=== PATIENT | female | born 1930 | race Caucasian/White ===

== ENCOUNTER 2017-02-11 03:59 | Inpatient (IN) | payer OTHER ==
[~2017-02-11] VITALS: Ht 160 cm; Wt 62.0 kg
[2017-02-11] MEDS ORDERED: ALBUTEROL 0.5% (NEB) 2.5 MG/0.5 ML AMP INH STA (04:07)
[2017-02-11] MEDS ORDERED: IPRATROPIUM (NEB) 0.5 MG/2.5 ML AMP INH STA (04:07)
[2017-02-11 04:28] LABS: ADD SCAN DIFF NO
[2017-02-11 04:30] LABS: ABNORMAL IP MESSAGE 1; HEMATOCRIT 12.5 % (37.0-47.0); MEAN CORPUSCULAR HEMOGLOBIN 58.4 pg (29.0-33.0); MEAN CORPUSCULAR VOLUME 110.6 fl (82.0-101.0); MEAN PLATELET VOLUME 13.2 fl (7.4-10.4); PLATELET COUNT 223 10^3/UL (140-415); RED BLOOD COUNT 1.13 10^6/ul (4.20-5.40); RED CELL DISTRIBUTION WIDTH 27.5 % (11.5-14.5); WHITE BLOOD COUNT 12.6 10^3/ul (4.8-10.8)
[2017-02-11 04:33] LABS: Arterial Base Excess 5.2 mmol/L (-3.0-3); Arterial COHb 0.1 % (0.0-3.0); Arterial Fraction of Oxyhgb 97.9 % (93.0-99.0); Arterial HCO3 28.1 mmol/L (22.0-26.0); Arterial MetHb 0.5 % (0.0-1.5); Arterial Total Hemglobin 7.2 g/dl (12.0-18.0); Blood Gas IEPAP 16/6; MODE MASK - BIPAP
[2017-02-11 04:45] LABS: HEMOGLOBIN 6.6 g/dl (12.0-16.0); MEAN CORPUSCULAR HGB CONC 52.8 g/dl (32.0-37.0)
[2017-02-11 04:46] LABS: ALANINE AMINOTRANSFERASE 49 IU/L (13-69); ALBUMIN 2.2 g/dl (3.3-4.9); ALBUMIN/GLOBULIN RATIO 0.61; ALKALINE PHOSPHATASE 205 IU/L (42-121); ANION GAP 8 (8-16); ASPARTATE AMINO TRANSFERASE 43 IU/L (15-46); BILIRUBIN,INDIRECT 0.6 mg/dl (0-1.1); BILIRUBIN,TOTAL 0.6 mg/dl (0.2-1.3); BLOOD UREA NITROGEN 40 mg/dl (7-20); CALCIUM 8.5 mg/dl (8.4-10.2); CARBON DIOXIDE 29 mmol/L (21-31); CHLORIDE 114 mmol/L (97-110); CREATININE 0.44 mg/dl (0.44-1.00); GLUCOSE 122 mg/dl (70-220); POTASSIUM 3.2 mmol/L (3.5-5.1); SODIUM 148 mmol/L (135-144); TOTAL PROTEIN 5.8 g/dl (6.1-8.1)
[2017-02-11 04:48] LABS: INR 1.41; PROTIME 17.3 Sec (12.2-14.2); PT RATIO 1.4
[2017-02-11 04:49] LABS: PARTIAL THROMBOPLASTIN TIME 25.3 Sec (25.0-35.0)
[2017-02-11 04:57] LABS: TROPONIN-I < 0.012 ng/ml (0.00-0.12)
[2017-02-11 05:02] LABS: LYMPHOCYTES # 0.8 10^3/ul (0.8-2.9); MONOCYTE # 0.1 10^3/ul (0.3-0.9); NEUTROPHIL # 11.7 10^3/ul (1.6-7.5)
[2017-02-11 05:06] LABS: ANISOCYTOSIS MODERATE
[2017-02-11 05:07] LABS: MICROCYTOSIS 1+
--- NOTE | 2017-02-11 05:16 | RADRPT ---
PROCEDURE: CHEST - 1 VIEW CLINICAL INDICATION: 86-year-old female with shortness of breath and sepsis. TECHNIQUE: A single frontal AP portable view of the chest was performed. The images were reviewed on a PACS workstation. COMPARISON: None. FINDINGS: The cardiomediastinal silhouette is mildly enlarged. The thoracic aortic arch is calcified. There is right perihilar soft tissue density which may represent an infiltrate however this is, fat and by overlying external structures. An underlying mass cannot be excluded. There is a shallow inspirat ion. There is right lower lung zone atelectasis. There is [id number] left pleural effusion w ith associate compressive atelectasis. There is no evidence for congestive heart failure. There is n o evidence for pneumothorax. The osseous structures are intact. IMPRESSION: 1. Cardiomegaly. 2. Calcified thoracic aortic arch. 3. Right perihilar soft tissue density worrisome for an infiltrate or possible underlying mass. Th is however is difficult to evaluate secondary to overlying external structure. 4. Shallow inspiration with right lower lung zone atelectasis. 6. [id number] left pleural effusion with associated compressive atelectasis of the lower lobe . .Wally Garcia MD, MD Date Time Electronically viewed and signed by .Wally Garcia MD, on 02/11/2017 05:16 .Janina/
[2017-02-11] MEDS ORDERED: FUROSEMIDE 40 MG INJ IV ONE (05:30)
[2017-02-11] MEDS ORDERED: LORAZEPAM 2 MG INJ IV ONE (05:30)
--- NOTE | 2017-02-11 05:39 | ERA ---
ER Documentation Chief Complaint Date/Time DATE: 02/11/17 TIME: 05:34 Chief Complaint shortness of breath x 3 hrs, from home HPI This is a very pleasant 86 year female shortness of breath getting progressively worse over the last 3 hours from. Denies any fevers chills nausea vomiting. Chest pain. Some shortness breath. History of CHF. ROS All systems reviewed and are negative except as per history of present illness. Allergies Allergies: Coded Allergies: Penicillins (Verified Allergy, Intermediate, 02/11/17) codeine (Verified Allergy, Intermediate, 02/11/17) iodine (Verified Allergy, Intermediate, 02/11/17) PMhx/Soc History of Surgery: Yes (adhesion removal) Anesthesia Reaction: No Hx Neurological Disorder: No Hx Respiratory Disorders: No Hx Cardiac Disorders: Yes (CHF, HTN) Hx Psychiatric Problems: No Hx Miscellaneous Medical Probl: Yes (GERD) Hx Alcohol Use: No Hx Substance Use: No Hx Tobacco Use: No Smoking Status: Never smoker Physical Exam Vitals Vital Signs Date Time Temp Pulse Resp B/P Pulse Ox O2 Delivery O2 Flow Rate FiO2 02/11/17 04:22 122 100 60 02/11/17 04:03 100.5 135 44 117/75 100 Physical Exam Const: [] Head: Atraumatic Eyes: Normal Conjunctiva ENT: Normal External Ears, Nose and Mouth. Neck: Full range of motion..~ No meningismus. Resp: Scattered rales bilaterally Cardio: Regular rate and rhythm, no murmurs Abd: Soft, non tender, non distended. Normal bowel sounds Skin: No petechiae or rashes Back: No midline or flank tenderness Ext: No cyanosis, or edema Neur: Awake and alert Psych: Normal Mood and Affect Result Diagram: 02/11/17 0410 02/11/17 0410 Results 24 hrs Laboratory Tests Test 02/11/17 04:07 02/11/17 04:10 Blood Gas Specimen Source Blood arterial Arterial Blood Date Drawn 02/11/2017 4:29:56 AM Arterial Blood pH (Temp corrected) 7.540 Arterial Blood pCO2 (Temp correct) 33.6mmhg Arterial Blood pO2 (Temp corrected) 146.8mmHG Arterial Blood HCO3 28.1mmol/L Arterial Blood Base Excess 5.2mmol/L Arterial Blood Oxygen Saturation 98.5mmHG Shreyas Test N/A Arterial Blood Gas Puncture Site Right Radial Arterial Blood Carboxyhemoglobin 0.1% Arterial Blood Methemoglobin 0.5% Blood Gas A-a O2 Differential 244.0mmHg Oxyhemoglobin Percent 97.9% Total Hemoglobin 7.2g/dl Blood Gas Temperature 37.0C Blood Gas Respiration Rate 16.0 Blood Gas Actual Respiration Rate 48 Blood Gas Modality MASK - BIPAP FiO2 60.0% Blood Gas IPAP/EPAP Ratio 16/6 Blood Gas Notified Whom MG Blood Gas Notified Time 02/11/2017 4:33:34 AM White Blood Count 12.610^3/ul Red Blood Count 1.1310^6/ul Hemoglobin 6.6g/dl Hematocrit 12.5% Mean Corpuscular Volume 110.6fl Mean Corpuscular Hemoglobin 58.4pg Mean Corpuscular Hemoglobin Concent 52.8g/dl Red Cell Distribution Width 27.5% Platelet Count 73717^3/UL Mean Platelet Volume 13.2fl Neutrophils % 93.0% Lymphocytes % 6.0% Monocytes % 1.0% Eosinophils % % Neutrophils # 11.710^3/ul Lymphocytes # 0.810^3/ul Monocytes # 0.110^3/ul Eosinophils # 10^3/ul Differential Comment MANUAL DIFF Anisocytosis MODERATE Microcytosis 1+ Prothrombin Time 17.3Sec Prothrombin Time Ratio 1.4 INR International Normalized Ratio 1.41 Activated Partial Thromboplast Time 25.3Sec Sodium Level 148mmol/L Potassium Level 3.2mmol/L Chloride Level 114mmol/L Carbon Dioxide Level 29mmol/L Anion Gap 8 Blood Urea Nitrogen 40mg/dl Creatinine 0.44mg/dl Glucose Level 122mg/dl Lactic Acid Level 1.7mmol/L Calcium Level 8.5mg/dl Total Bilirubin 0.6mg/dl Direct Bilirubin 0.00mg/dl Indirect Bilirubin 0.6mg/dl Aspartate Amino Transf (AST/SGOT) 43IU/L Alanine Aminotransferase (ALT/SGPT) 49IU/L Alkaline Phosphatase 205IU/L Troponin I < 0.012ng/ml Total Protein 5.8g/dl Albumin 2.2g/dl Globulin 3.60g/dl Albumin/Globulin Ratio 0.61 Current Medications Medications (Trade) Dose Ordered Sig/Amie Route PRN Reason Start Time Stop Time Status Last Admin Dose Admin Albuterol (Proventil 0.5% (Neb)) 10 mg ONCE STAT INH 02/11/17 04:07 02/11/17 04:10 DC 02/11/17 04:36 Ipratropium [place] (Atrovent 0.02% (Neb)) 1 mg ONCE STAT INH 02/11/17 04:07 02/11/17 04:10 DC 02/11/17 04:36 Furosemide (Lasix) 40 mg ONCE ONCE IV 02/11/17 05:30 02/11/17 05:31 DC Lorazepam (Ativan) 1 mg ONCE ONCE IV 02/11/17 05:30 02/11/17 05:31 DC Procedures/MDM EKG: Rate/Rhythm: [Normal Sinus Rhythm] QRS, ST, T-waves: [No changes consistent w/ acute ischemia] Impression: [No evidence of ischemia or arrhythmia] Chest X-ray 1V Interpreted by me: Soft Tissue: No acute abnormalities Bones: No acute abnormalities Mediastinum/Cardiac Silhouette/Lungs: Right pleural effusion. Impression: CHF Patient's heart failure symptoms is concerning for acute decompensation and will require inpatient workup and monitoring. Further w/u for ischemia, arrhythmia, PE or dissection will be deferred to the inpatient team. Patient also has anemia and has been typed and crossed for 2 units. Patient placed on BiPAP with rapid improvement of respiratory status. Accepting Care Team: Current data and ongoing care discussed. Time: 5 AM Primary Provider: Dr. Galvan Consulting: [[employer]] Outstanding Data: none Critical Care: Time: 45 minutes Treatments/Evaluations: Close monitoring and treatment of unstable vital signs, cardiorespiratory, and neurologic status, while maintaining tight balance of fluid, respiratory, and cardiac interventions. This time is separate from separate billable procedure time Departure Diagnosis: Primary Impression: Shortness of breath Additional Impression: CHF (congestive heart failure) Qualified Code: I50.9 - Congestive heart failure, unspecified congestive heart failure chronicity, unspecified congestive heart failure type Condition: Serious GABRIELLA DESOUZA Feb 11, 2017 05:39
[2017-02-11 06:17] LABS: ADD UMIC YES; UR ASCORBIC ACID 40 mg/dL (NEGATIVE); UR BACTERIA FEW /HPF (NONE SEEN); UR BILIRUBIN (Dip) NEGATIVE (NEGATIVE); UR BLOOD (Dip) NEGATIVE (NEGATIVE); UR CLARITY SLIGHTLY CLOUDY (CLEAR); UR COLOR AMBER (YELLOW); UR GLUCOSE (Dip) NEGATIVE (NEGATIVE); UR KETONES (Dip) NEGATIVE (NEGATIVE); UR LEUKOCYTE ESTERASE (Dip) 1+ Leu/ul (NEGATIVE); UR NITRITE (Dip) NEGATIVE (NEGATIVE); UR RBC 0 /HPF (0-5); UR SPECIFIC GRAVITY (Dip) 1.017 (1.003-1.030); UR TOTAL PROTEIN (Dip) NEGATIVE (NEGATIVE); UR UROBILINOGEN (Dip) 2+ mg/dL (NEGATIVE)
[2017-02-11] MEDS ORDERED: LEVOFLOXACIN 250MG/D5W (PMX) 50 ML IVPB ONE (06:30)
[2017-02-11] MEDS ORDERED: POTASSIUM CHLORIDE 250 ML IVPB ONE (06:30)
[2017-02-11] MEDS ORDERED: METO25TA4 PO (06:59)
[2017-02-11] MEDS ORDERED: SERT50TA PO (07:00)
[2017-02-11] MEDS ORDERED: MIDO5TAB19 PO (07:04)
[2017-02-11] MEDS ORDERED: PANT40TA3 PO (07:06)
[2017-02-11] MEDS ORDERED: FLUC200T36 PO (07:08)
--- NOTE | 2017-02-11 08:42 | RADRPT ---
PROCEDURE: CT Abdomen and Pelvis without contrast. CLINICAL INDICATION: Abdominal pain, history of pseudocyst TECHNIQUE: CT of the abdomen and pelvis was performed on a multi-detector scanner without IV contr ast. Coronal and sagittal images were reformatted from the axial data set. One or more of the foll owing dose reduction techniques were used: automated exposure control, adjustment of the mA and/or k V according to patient size, use of iterative reconstruction technique. CTDI = 18.2 mGy. DLP = 978. 27 mGy-cm. COMPARISON: CT, 01/19/2017 ([facility]) FINDINGS: CT abdomen: There are mild to moderate bilateral pleural effusions, with associated bibasilar atelectasis. The heart size is normal, without pericardial effusion. Large hiatal hernia is noted. Liver and gallbla dder are grossly unremarkable. Previously seen cholecystostomy tube has been removed. Common bile duct stent remains in place. No biliary dilatation is seen. Loculated peripancreatic fluid collect ions are identified - largest is located anterior to the pancreatic tail, measuring 10.3 x 6.6 cm (3 -45), previously 8.4 x 4.5 cm. A new loculated collection is seen collection inferior to the left h epatic lobe, measuring 10.1 x 5.3 cm (3-56). New gas bubbles are present within these collections. Spleen, adrenal glands and kidneys are unremarkable. There is no urolithiasis or obstructive uropat hy. Abdominal aorta is normal in caliber. Aortoiliac atherosclerotic calcifications are present. There is no retroperitoneal or deanna hepatis lymphadenopathy. There has been interval placement of a n IVC filter. CT pelvis: Areas of small bowel wall thickening and mesenteric edema are seen, suggestive of enteritis. No bow el obstruction or free intraperitoneal air is identified. Colonic diverticulosis is seen without ev idence of diverticulitis. There is no appendicitis or colitis. Elder catheter balloon is within th e urinary bladder. Uterus and adnexa are grossly unremarkable. Mild amount of pelvic free fluid is present. No pelvic mass or lymphadenopathy is seen. Diffuse anasarca is noted. The surrounding osseous structures are remarkable for scoliosis and degenerative enthesopathy of the spine No osteolytic or osteoblastic lesion is detected. IMPRESSION: 1. Loculated upper abdominal fluid collections are identified, suggestive of pseudocysts, new and/o r significantly increased in size when compared to the prior exam, as discussed above. New gas bubb les are present within these collections, concerning for infected pseudocysts. 2. There are mild to moderate bilateral pleural effusions, increased in size, with associated bibas ilar atelectasis. 3. Large hiatal hernia is again seen. 4. Previously seen cholecystostomy tube has been removed. Common bile duct stent remains in place. There has been interval placement of an IVC filter. Elder catheter balloon is within the urinary bladder. 5. Small bowel wall thickening and mesenteric edema are identified, suggestive of enteritis, increa sed from prior CT. There is no evidence of bowel obstruction or perforation. RPTAT: EE .Parish Schaefer MD, MD Date Time Electronically viewed and signed by .Parish Schaefer MD, MD on 02/11/2017 08:42 .R/
[2017-02-11] MEDS ORDERED: BISACODYL 10 MG SUPP PR PRN (10:00)
[2017-02-11] MEDS ORDERED: DOCUSATE SODIUM 100 MG CAP PO PRN (10:00)
[2017-02-11] MEDS ORDERED: NACL 0.9% 3 ML SYG IV SCH (10:00)
[2017-02-11] MEDS: FLUCONAZOLE 200 MG TAB PO SCH (10:42)
[2017-02-11] MEDS: MIDODRINE 5 MG TAB PO SCH ×2 (13:00→21:24)
[2017-02-11] MEDS: ONDANSETRON 4 MG INJ IV PRN (13:26)
[2017-02-11 14:23] VITALS: TEMP 99
[2017-02-11 15:44] LABS: AADO2 Arterial 96.3 mmHg (7.0-24.0); Allen Test ACCEPTAB; Arterial Base Excess 1.8 mmol/L (-3.0-3); Arterial COHb 0.1 % (0.0-3.0); Arterial Fraction of Oxyhgb 94.4 % (93.0-99.0); Arterial HCO3 25.1 mmol/L (22.0-26.0); Arterial MetHb 0.5 % (0.0-1.5); Arterial Total Hemglobin 8.5 g/dl (12.0-18.0); MODE NASAL CANNULA
--- NOTE | 2017-02-11 16:02 | HP ---
Date/Time of Note Date/Time of Note DATE: 02/11/17 TIME: 15:35 Assessment/Plan VTE Prophylaxis VTE Prophylaxis Intervention: SCD's, other (Status post IVC filter placement) Lines/Catheters IV Catheter Type (from Nrs): PICC Line Central line still needed: Yes (TPN) Urinary Cath still in place: Yes Reason Cath still needed: other (indicate) (Bedbound) Assessment/Plan Assessment/Plan 86 yo female with: 1. Acute on chronic anemia with hemoglobin of 6.6. No signs of acute GI bleed , complicated history of severe pancreatitis with pseudocyst and prolonged hospital stay with recent discharge, patient has been given 2 units of packed red blood cells, I will consult gastroenterology for rule out GI bleed and also to assist in the management of her pancreatitis and pseudocyst. Monitor H&H posttransfusion, will obtain further records from [facility] in order to see if the patient had also additional GI workup done there. 2. Respiratory distress, insetting of pleural effusions, atelectasis, severe anemia and poor overall clinical status. I agree with BiPAP as needed, once her blood pressure stabilized she will be started on Lasix for diuresis. If needed thoracentesis will be repeated. Of note she did have bilateral thoracentesis at [facility] on her admission Monitor respiratory status 3. Severe pancreatitis with pseudocyst, currently on TPN and clear liquids. CAT scan of the abdomen and pelvis has been compared to the one done at [facility] approximately 3 weeks ago, cholecystostomy tube has been removed however there is concern as the patient has a new fluid collection in addition of the previous pseudocyst also previous pseudocyst seems to have increased in size and there is concern for possible infection. I will start the patient on meropenem for now. I will reconsult Dr. Hannah. 4. Hypotension: Based on records patient has been actually put on midodrine 5 mg p.o. 3 times daily due to ongoing hypotension even at discharge from [facility], this will be resumed and patient will be monitored closely. Check lactic acid, antibiotics have been reordered. 5. Urinary retention, status post acute kidney injury at [facility] , renal function seems to be much better, Elder catheter in place for now. Monitor urine output and renal function. 6. Nutrition: will obtain previous orders from TPN patient is to go back on TPN in the next 24-48 hours 7. Tachycardia: Per report from [facility] patient has sinus tachycardia, EKG in the emergency department today reporting possible underlying A. fib. She will be admitted to telemetry close monitoring for now. Continue beta-blockers. Patient not a candidate for any anticoagulation for now. She will probably improve also after packed red blood cell given 8. Venous thromboembolism with episode of DVT, status post IVC filter Prophylaxis: Protonix for GI prophylaxis, SCDs and status post IVC filter for DVT prophylaxis Disposition: Patient being admitted to telemetry for now, gastroenterology will be consulted and also I will reconsult Dr. Hannah. We may need IR drainage of 1 of the pseudocyst if recommended HPI/ROS Admit Date/Time Admit Date/Time Hx of Present Illness Chief complaint on admission: Shortness of breath History of presenting illness: This is a 86-year-old female with recent admission at [facility] with severe pancreatitis, pseudocyst, protracted hospital stay including critical care stay and discharged home 4 days ago with home health, TPN and back today in the emergency department here at [facility] with shortness of breath. The patient is currently on BiPAP therefore she is unable to give most of the history, the son and DPOAE at the bedside is able to provide some of the information the rest of the history is gathered from the emergency room physician notes and also from medical records from [facility]. The patient was discharged 4 days ago again on TPN but also on midodrine for persistent hypotension, metoprolol for sinus tachycardia and home health. According to the son at the bedside they just noticed her declining over the past 2 days especially with increasing shortness of breath, in the emergency department she was found to be severely anemic with a hemoglobin of 6.6. She was also found to be tachycardic and hypotensive. She has been started on antibiotics for presumably pneumonia possibly aspiration, she will be receiving 2 units of packed red blood cells, CAT scan of the abdomen and pelvis seems to be concerning for increased size of the pseudocyst and possibly signs of infection in the pseudocyst. Previous cholecystostomy tube has been discontinued. There is no noted melena or hematemesis but gastroenterology will be consulted. Patient does have a history of third spacing and pulmonary edema pleural effusions that did require thoracentesis at [facility], she does have a mild to moderate left pleural effusion but will be treated with Lasix as tolerated, currently on BiPAP with expectation to be off BiPAP soon. Patient is being admitted to telemetry, I will consult gastroenterology regarding severe anemia rule out GI bleed and possibly Dr. Hannah will need to be reconsulted. ROS Eyes: no complaints ENT: no complaints Gastrointestinal: pain (Upper, mild) Genitourinary: no complaints, other (Elder catheter) Neurologic: no complaints PMH/Family/Social Past Medical History Severe pancreatitis with pseudocyst formation, on TPN Status post cholecystostomy tube placement and removal Status post acute kidney injury Status post multiorgan failure including respiratory failure at [facility] Aspiration pneumonia Sinus tachycardia Hypotension requiring Midodrine DVT status post IVC filter placement Chronic anemia Past Surgical History Status post cholecystostomy tube placement and removal Social History Alcohol Use: none Smoking Status: Never smoker Exam/Review of Systems Vital Signs Vitals Vital Signs Date Time Temp Pulse Resp B/P Pulse Ox O2 Delivery O2 Flow Rate FiO2 02/11/17 15:05 100 3.0 02/11/17 14:23 99.0 93 26 93/63 BIPAP 02/11/17 14:10 45 Exam Constitutional: alert, frail, other Respiratory: diminished breath sounds (Bilateral bases more pronounced on the left), other (On BiPAP) Cardiovascular: other (Tachycardic, A. fib) Gastrointestinal: soft, tender (Upper abdomen) Musculoskeletal: swelling Extremities: normal pulses, other (Bilateral lower extremity edema, no clubbing no cyanosis) Neurological: CRANK HAND II-XII intact, nl mental status, nl speech (But limited by BiPAP) Labs Result Diagram: 02/11/1740902/11/17409 Medications Medications Current Medications Fluconazole (Diflucan) 200 mg DAILY PO Last administered on 02/11/17t 10:42; Admin Dose 200 MG; Start 02/11/17 at 10:00 Metoprolol Tartrate (Lopressor) 25 mg BID PO ; Start 02/11/17 at 21:00 Midodrine (Proamatine) 5 mg TID PO ; Start 02/11/17 at 13:00 Pantoprazole (Protonix Tab) 40 mg DAILY PO ; Start 02/12/17 at 09:00 Ondansetron HCl (Zofran Inj) 4 mg Q6H PRN IV NAUSEA AND/OR VOMITING Last administered on 02/11/17t 13:26; Admin Dose 4 MG; Start 02/11/17 at 10:00 Acetaminophen (Tylenol Tab) 650 mg Q6H PRN PO PAIN LEVEL 1-3 OR FEVER; Start at 10:00 Morphine Sulfate (morphine) 2 mg Q4H PRN IV PAIN LEVEL 7-10; Start 02/11/17 at 10:00 Docusate Sodium (Colace) 100 mg Q12H PRN PO CONSTIPATION; Start 02/11/17 at 10: 00 Bisacodyl 10 mg 10 mg DAILY PRN DC CONSTIPATION; Start 02/11/17 at 10:00 Potassium Chloride/Dextrose/ Sod Cl (D5-1/2ns + KCl 40 Meq) 1,000 ml @ 75 mls/ hr [id number] IV ; Start 02/11/17 at 10:00 Procedures Procedures PROCEDURE: CT Abdomen and Pelvis without contrast. CLINICAL INDICATION: Abdominal pain, history of pseudocyst TECHNIQUE: CT of the abdomen and pelvis was performed on a multi-detector scanner without IV contrast. Coronal and sagittal images were reformatted from the axial data set. One or more of the following dose reduction techniques were used: automated exposure control, adjustment of the mA and/or kV according to patient size, use of iterative reconstruction technique. CTDI = 18.2 mGy. DLP = 978.27 mGy-cm. COMPARISON: CT, 01/19/2017 ([facility]) FINDINGS: CT abdomen: There are mild to moderate bilateral pleural effusions, with associated bibasilar atelectasis. The heart size is normal, without pericardial effusion. Large hiatal hernia is noted. Liver and gallbladder are grossly unremarkable. Previously seen cholecystostomy tube has been removed. Common bile duct stent remains in place. No biliary dilatation is seen. Loculated peripancreatic fluid collections are identified - largest is located anterior to the pancreatic tail, measuring 10.3 x 6.6 cm (3-45), previously 8.4 x 4.5 cm. A new loculated collection is seen collection inferior to the left hepatic lobe, measuring 10.1 x 5.3 cm (3-56). New gas bubbles are present within these collections. Spleen, adrenal glands and kidneys are unremarkable. There is no urolithiasis or obstructive uropathy. Abdominal aorta is normal in caliber. Aortoiliac atherosclerotic calcifications are present. There is no retroperitoneal or deanna hepatis lymphadenopathy. There has been interval placement of an IVC filter. CT pelvis: Areas of small bowel wall thickening and mesenteric edema are seen, suggestive of enteritis. No bowel obstruction or free intraperitoneal air is identified. Colonic diverticulosis is seen without evidence of diverticulitis. There is no appendicitis or colitis. Elder catheter balloon is within the urinary bladder. Uterus and adnexa are grossly unremarkable. Mild amount of pelvic free fluid is present. No pelvic mass or lymphadenopathy is seen. Diffuse anasarca is noted. The surrounding osseous structures are remarkable for scoliosis and degenerative enthesopathy of the spine No osteolytic or osteoblastic lesion is detected. IMPRESSION: 1. Loculated upper abdominal fluid collections are identified, suggestive of pseudocysts, new and/or significantly increased in size when compared to the prior exam, as discussed above. New gas bubbles are present within these collections, concerning for infected pseudocysts. 2. There are mild to moderate bilateral pleural effusions, increased in size, with associated bibasilar atelectasis. 3. Large hiatal hernia is again seen. 4. Previously seen cholecystostomy tube has been removed. Common bile duct stent remains in place. There has been interval placement of an IVC filter. Elder catheter balloon is within the urinary bladder. 5. Small bowel wall thickening and mesenteric edema are identified, suggestive of enteritis, increased from prior CT. There is no evidence of bowel obstruction or perforation. RPTAT: EE .Parish Schaefer MD, MD Date Time Electronically viewed and signed by .Parish Schaefer MD, on 02/11/2017 08: 42 BONIFACIO COWART Feb 11, 2017 15:46
[2017-02-11 16:38] LABS: CREATINE KINASE < 20 IU/L (23-200)
[2017-02-11 16:44] VITALS: PULSE 93
[2017-02-11 16:46] LABS: CK-MB 0.25 ng/ml (0.0-2.4)
[2017-02-11] MEDS: D5W-0.45 NACL + KCL 40 MEQ 1,000 ML IV SCH ×2 (16:51→23:20)
[2017-02-11 16:52] VITALS: BP 92/51; PULSE 94; RESP 22
[2017-02-11 16:56] VITALS: Ht 160 cm; Wt 62.0 kg
[2017-02-11 16:57] LABS: TROPONIN-I < 0.012 ng/ml (0.00-0.12)
[2017-02-11 17:54] LABS: CALCIUM 8.5 mg/dl (8.4-10.2); CREATININE 0.45 mg/dl (0.44-1.00)
[2017-02-11] MEDS ORDERED: MEROPENEM 1 GM/100 ML (PMX) 100 ML IVPB SCH (18:00)
[2017-02-11] MEDS: MEROPENEM 1 GM/50ML(PMX) 50 ML IVPB SCH ×2 (18:08→23:20)
[2017-02-11] MEDS ORDERED: PENDING SANTYL ORDER FOR WOUND CARE XX PRN (19:00)
[2017-02-11 19:49] VITALS: BP 97/54; RESP 17
[2017-02-11 20:15] VITALS: PULSE 99
[2017-02-11] MEDS: METOPROLOL 25 MG TAB PO SCH (21:09)
--- NOTE | 2017-02-11 21:26 | RADRPT ---
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 Physician: MALORIE COWART Quality: Technically Difficult Study Procedures: Transthoracic echocardiogram with complete 2D, M-Mode, and doppler examination. Indications: Evaluate Left Ventricular function. 2D/M Mode Doppler Measurement Value Normal Ranges Measurement Value Normal Ranges LVIDd 2D 4.0 3.5 - 5.6 cm AV Peak Isaak 1.9 m/sec LVIDs 2D 3.0 2.1 - 4.1 cm AV Peak PG 14.0 mmHg FS 2D 24.9 % AI Peak PG 42.0 mmHg LVPWd 2D 1.0 0.6 - 1.1 cm AI Peak Isaak 3.2 m/sec IVSd 2D 1.1 0.6 - 1.1 cm AI PHT 645.0 msec IVS/LVPW 2D 1.1 LVOT Peak Isaak 1.3 m/sec AoR Diam 2D 2.9 2.0 - 3.7 cm LVOT Peak PG 7.0 mmHg LA/Ao 2D 2 0 - 1 MV E Peak Isaak 0.9 m/sec EDV 2D 62.6 cm3 MV A Peak Isaak 1.4 m/sec ESV 2D 26.5 cm3 MV E/A 0.6 LA Dimen 2D 5.3 2.3 - 4.0 cm MV Decel Time 187 msec MV E/A 0.6 MR Peak PG 96.0 mmHg MR Peak Isaak 4.9 m/sec TR Peak Isaak 2.7 m/sec TR Peak PG 29.0 mmHg RVSP 37.0 mmHg Findings Left Ventricle: Normal left ventricular systolic function. Normal left ventricular cavity size. Normal left ventricular wall thickness. Ejection fraction is visually estimated at 60 %. Tissue Doppler/Mitral Doppler indices are consistent with impaired relaxation (Stage I diastolic dysfunction). Right Ventricle: Normal right ventricular size. Normal right ventricular systolic function. Left Atrium: There is severe enlargement of left atrium. Right Atrium: The right atrium is normal in size. Mitral Valve: Mild mitral leaflet calcification. Moderate mitral annular calcification. Mild mitral valve regurgitation. Aortic Valve: Aortic sclerosis without stenosis. Mild aortic valve regurgitation. Tricuspid Valve: Normal appearance of the tricuspid valve. Estimated peak PA systolic pressure 37 mmHg. There is mild tricuspid regurgitation. Pulmonic Valve: Pulmonic valve not well visualized. There is trace pulmonic regurgitation. Pericardium: Normal pericardium with no significant pericardial effusion. Aorta: Normal aortic root. IVC: Normal size and no respiratory collapse consistent with elevated right atrial pressure. Conclusions Normal left ventricular systolic function. Normal left ventricular cavity size. Normal left ventricular wall thickness. Ejection fraction is visually estimated at 60 %. Tissue Doppler/Mitral Doppler indices are consistent with impaired relaxation (Stage I diastolic dysfunction). Normal right ventricular size. Normal right ventricular systolic function. There is severe enlargement of left atrium. The right atrium is normal in size. Mild mitral leaflet calcification. Moderate mitral annular calcification. Mild mitral valve regurgitation. Aortic sclerosis without stenosis. Mild aortic valve regurgitation. Normal appearance of the tricuspid valve. Estimated peak PA systolic pressure 37 mmHg. There is mild tricuspid regurgitation. Normal pericardium with no significant pericardial effusion. Electronically Signed By: Pantera Ray 11-Feb-2017 21:26:27 -0700 Patient Name: ROBIN SUTHERLAND Study Date: 11-Feb-2017 [id number]
[2017-02-11 23:59] VITALS: BP 96/55; RESP 19
[2017-02-12] VITALS (12 sets, daily range): BP systolic 90–100; BP diastolic 47–58; PULSE 96–101; RESP 17–19
[2017-02-12 07:12] LABS: ADD SCAN DIFF NO
[2017-02-12 07:16] LABS: ABNORMAL IP MESSAGE 1; HEMATOCRIT 13.2 % (37.0-47.0); HEMOGLOBIN 7.6 g/dl (12.0-16.0); MEAN CORPUSCULAR HEMOGLOBIN 61.3 pg (29.0-33.0); MEAN CORPUSCULAR VOLUME 106.5 fl (82.0-101.0); MEAN PLATELET VOLUME 12.8 fl (7.4-10.4); PLATELET COUNT 166 10^3/UL (140-415); RED BLOOD COUNT 1.24 10^6/ul (4.20-5.40); RED CELL DISTRIBUTION WIDTH 23.9 % (11.5-14.5); WHITE BLOOD COUNT 11.3 10^3/ul (4.8-10.8)
[2017-02-12 07:22] LABS: MEAN CORPUSCULAR HGB CONC 57.6 g/dl (32.0-37.0)
[2017-02-12 07:36] LABS: BILIRUBIN,DIRECT 0.8 mg/dl (0.00-0.20); BILIRUBIN,INDIRECT 1.1 mg/dl (0-1.1); CALCIUM 8.8 mg/dl (8.4-10.2); CREATININE 0.44 mg/dl (0.44-1.00); POTASSIUM 4.3 mmol/L (3.5-5.1)
[2017-02-12 07:37] LABS: ALBUMIN 1.9 g/dl (3.3-4.9); ALBUMIN/GLOBULIN RATIO 0.55; BILIRUBIN,TOTAL 1.9 mg/dl (0.2-1.3); CHOL/HDL RATIO 7.2 RATIO; TOTAL PROTEIN 5.3 g/dl (6.1-8.1)
[2017-02-12 08:06] LABS: THYROID STIMULATING HORMONE 1.68 MIU/L (0.465-4.680)
--- NOTE | 2017-02-12 08:37 | RADRPT ---
PROCEDURE: X-ray Chest. CLINICAL INDICATION: Pulmonary edema. TECHNIQUE: Single view chest x-ray. COMPARISON: Exam dated 02/11/2017. FINDINGS: There is a well-positioned right-sided PICC tip overlying the mid SVC. There are atherosclerotic rony nges of the aorta. The cardiomediastinal silhouette remains enlarged. There is persistent bilateral perihilar opacity, diffuse interstitial disease, retrocardiac opacity, and a small right effusion. There is no pneumothorax. There are no acute osseous abnormalities. IMPRESSION: 1. Cardiomegaly with similar findings of mild to moderate hydrostatic edema with retrocardiac opaci ty and small right effusion. 2. Vascular calcifications consistent with atherosclerosis. RPTAT: GG .Pedro Tay MD, Date Time Electronically viewed and signed by .Pedro Tay MD, on 02/12/2017 08:37 .P/
--- NOTE | 2017-02-12 08:48 | CONS ---
Date/Time of Note Date/Time of Note DATE: 02/12/17 TIME: 08:38 Assessment/Plan Assessment/Plan Additional Assessment/Plan Pancreatic pseudocyst enlarged, pleural effusions, and anemia Plan: GI consultation, CT aspiration of new pseudocyst to determine if infected Patient is the poorest of surgical candidates Continue aggressive medical management Consultation Date/Type/Reason Admit Date/Time Date of Consultation: Feb 12, 2017 Reason for Consultation Pancreatitis and pseudocyst Hx of Present Illness The patient is an 86-year-old female who is known to me from laparoscopic lysis of adhesions with release of small bowel obstruction earlier this year. Approximately 2 months ago the patient was admitted to [facility] with cholecystitis and choledocholithiasis. She underwent an ERCP with successful stone extraction and placement of stent. The patient was too frail for cholecystectomy, so cholecystostomy was performed. Several weeks later cholangiogram through cholecystostomy showed a patent cystic duct and the cholecystostomy catheter was removed. In the interim the patient developed a pseudocyst. She had a very complex hospitalization with multiple medical issues , but was ultimately able to be discharged to a residential facility with TPN. She was admitted yesterday because of shortness of breath, tachycardia and hypotension. She was found to be anemic with a hemoglobin of 6.6. Imaging studies showed enlargement of pseudocyst with possible development of a second pseudocyst in the body and tail of the pancreas. The patient was admitted and surgical consultation was requested in that regard. Constitutional: requiring IVF Eyes: no complaints ENT: no complaints Respiratory: shortness of breath Cardiovascular: other (Tachycardia) Gastrointestinal: pain (Upper, mild) Genitourinary: no complaints, other (Elder catheter) Musculoskeletal: other (Generalized weakness) Neurologic: no complaints Endocrine: no complaints Lymphatic: no complaints Psychological: no complaints Social History Alcohol Use: none Smoking Status: Never smoker Exam/Review of Systems Vital Signs Vitals Vital Signs Date Time Temp Pulse Resp B/P Pulse Ox O2 Delivery O2 Flow Rate FiO2 02/12/17 07:36 98.2 102 19 90/48 99 02/12/17 01:09 4.0 02/11/17 23:34 Nasal Cannula 02/11/17 14:10 45 Intake and Output 02/11/17 02/11/17 02/12/17 15:00 23:00 07:00 Intake Total 900 ml Output Total 1100 ml 700 ml Balance -1100 ml 200 ml Exam Constitutional: oriented Head: normocephalic Eyes: PERRL Neck: supple Respiratory: diminished breath sounds Cardiovascular: other (Tachycardia) Gastrointestinal: tender (Upper abdomen) Results Result Diagram: 02/12/17 0651 02/12/17 0651 Results 24 hrs Laboratory Tests Test 02/11/17 15:01 02/11/17 16:00 02/12/17 06:25 02/12/17 06:51 Blood Gas Specimen Source Blood arterial Arterial Blood Date Drawn 02/11/2017 3:30:48 PM Arterial Blood pH (Temp corrected) 7.490 H Arterial Blood pCO2 (Temp correct) 33.7 L Arterial Blood pO2 (Temp corrected) 78.0 L Arterial Blood HCO3 25.1 Arterial Blood Base Excess 1.8 Arterial Blood Oxygen Saturation 95.0 Shreyas Test ACCEPTAB Arterial Blood Gas Puncture Site Right Radial Arterial Blood Carboxyhemoglobin 0.1 Arterial Blood Methemoglobin 0.5 Blood Gas A-a O2 Differential 96.3 H Oxyhemoglobin Percent 94.4 Total Hemoglobin 8.5 L Blood Gas Temperature 37.0 Blood Gas Actual Respiration Rate 24 Blood Gas Modality NASAL CANNULA FiO2 30.0 Blood Gas Notified Whom ELZBIETA RT Blood Gas Notified Time 02/11/2017 3:44:24 PM Sodium Level 143 145 H Potassium Level 4.0 4.3 Chloride Level 115 H 118 H Carbon Dioxide Level 29 28 Anion Gap 3 L 3 L Blood Urea Nitrogen 39 H 31 H Creatinine 0.45 0.44 Glucose Level 109 95 Calcium Level 8.5 8.8 Creatine Kinase < 20 L Creatine Kinase Index Creatinine Kinase MB (Mass) 0.25 Troponin I < 0.012 Lab Scanned Report BLOOD TRANSFUSION White Blood Count 11.3 H Red Blood Count 1.24 L Hemoglobin 7.6 L Hematocrit 13.2 L Mean Corpuscular Volume 106.5 H Mean Corpuscular Hemoglobin 61.3 H Mean Corpuscular Hemoglobin Concent 57.6 H Red Cell Distribution Width 23.9 H Platelet Count 166 # Mean Platelet Volume 12.8 H Neutrophils % Eosinophils % Neutrophils # Eosinophils # Magnesium Level 2.0 Total Bilirubin 1.9 H Direct Bilirubin 0.80 #H Indirect Bilirubin 1.1 Aspartate Amino Transf (AST/SGOT) 56 H Alanine Aminotransferase (ALT/SGPT) 50 Alkaline Phosphatase 211 H Total Protein 5.3 L Albumin 1.9 L Globulin 3.40 H Albumin/Globulin Ratio 0.55 Triglycerides Level 113 Cholesterol Level 65 L LDL Cholesterol, Calculated 33 HDL Cholesterol 9 L Cholesterol/HDL Ratio 7.2 Thyroid Stimulating Hormone (TSH) 1.680 Free Thyroxine 1.42 Medications Medications Current Medications Fluconazole (Diflucan) 200 mg DAILY PO Last administered on 02/11/17 10:42; Admin Dose 200 MG; Start 02/11/17 at 10:00 Metoprolol Tartrate (Lopressor) 25 mg BID PO Last administered on 02/11/17 21: 09; Admin Dose 25 MG; Start 02/11/17 at 21:00 Midodrine (Proamatine) 5 mg TID PO Last administered on 02/11/17 21:24; Admin Dose 5 MG; Start 02/11/17 at 13:00 Pantoprazole (Protonix Tab) 40 mg DAILY PO ; Start 02/12/17 at 09:00 Ondansetron HCl (Zofran Inj) 4 mg Q6H PRN IV NAUSEA AND/OR VOMITING Last administered on 02/11/17 13:26; Admin Dose 4 MG; Start 02/11/17 at 10:00 Acetaminophen (Tylenol Tab) 650 mg Q6H PRN PO PAIN LEVEL 1-3 OR FEVER; Start at 10:00 Morphine Sulfate (morphine) 2 mg Q4H PRN IV PAIN LEVEL 7-10; Start 02/11/17 at 10:00 Docusate Sodium (Colace) 100 mg Q12H PRN PO CONSTIPATION; Start 02/11/17 at 10: 00 Bisacodyl 10 mg 10 mg DAILY PRN [place] CONSTIPATION; Start 02/11/17 at 10:00 Potassium Chloride/Dextrose/ Sod Cl 1,000 ml @ 75 mls/hr [id number] IV Last administered on 02/11/17 23:20; Admin Dose 75 MLS/HR; Start 02/11/17 at 10:00 Meropenem/Sodium Chloride (Merrem 1 Gm/50 ml (Pmx)) 50 ml @ 200 mls/hr Q12 IVPB Last administered on 02/11/17 23:20; Admin Dose 200 MLS/HR; Start at 18:00 Miscellaneous Information (Pending [facility] Order For Wound Care) This patient prado... PRN PRN XX WOUND CARE; Start 02/11/17 at 19:00 STEPHANIE BRADY MD Feb 12, 2017 08:48
[2017-02-12] MEDS: METOPROLOL 25 MG TAB PO SCH ×2 (09:00→21:15)
[2017-02-12] MEDS: MEROPENEM 1 GM/50ML(PMX) 50 ML IVPB SCH ×2 (10:10→20:02)
[2017-02-12] MEDS: PANTOPRAZOLE (EC) 40 MG TAB PO SCH (10:10)
[2017-02-12] MEDS: MIDODRINE 5 MG TAB PO SCH ×3 (10:10→21:15)
[2017-02-12] MEDS: morphine 2 MG INJ IV PRN (10:16)
[2017-02-12] MEDS ORDERED: SOD CHLORIDE 0.9% 250 ML IV* ONE ×2 (10:25→13:17)
[2017-02-12] MEDS ORDERED: FUROSEMIDE 40 MG INJ IV SCH (10:30)
[2017-02-12] MEDS: FLUCONAZOLE 200 MG TAB PO SCH (10:36)
[2017-02-12] MEDS: ONDANSETRON 4 MG INJ IV PRN (10:48)
[2017-02-12 11:11] LABS: LYMPHOCYTES # 0.5 10^3/ul (0.8-2.9); MONOCYTE # 0.3 10^3/ul (0.3-0.9); NEUTROPHIL # 9.9 10^3/ul (1.6-7.5)
[2017-02-12] MEDS: D5W-0.45 NACL + KCL 40 MEQ 1,000 ML IV SCH (12:40)
--- NOTE | 2017-02-12 13:05 | PN ---
Date/Time of Note Date/Time of Note DATE: 02/12/17 TIME: 12:06 Assessment/Plan VTE Prophylaxis VTE Prophylaxis Intervention: SCD's Lines/Catheters IV Catheter Type (from Nrsg): PICC Line Central line still needed: Yes (for IV access and TPN ) Urinary Cath still in place: Yes Reason Cath still needed: other (indicate) (severe illness ) Assessment/Plan Assessment/Plan 86 yo female with: 1. Acute on chronic anemia with hemoglobin of 6.6 on admission, s/p 2 units pRBC but Hb up to 7.6 only. GI consult pending and appreciate recommendations of Dr Hannah Will need CT guided drainage of 2nd pseudocyst by IR Monitor H&H. 2. Respiratory distress, insetting of pleural effusions, atelectasis, severe anemia and poor overall clinical status. PRN BiPAP for now on NC and Lasix prn especially with blood transfusion. CXR slightly better today If needed thoracentesis will be repeated. Monitor respiratory status Of note she did have bilateral thoracentesis at [facility] on her admission there last month 3. Severe pancreatitis with pseudocyst, currently on TPN and clear liquids. CAT scan of the abdomen and pelvis has been compared to the one done at [facility] approximately 3 weeks ago, cholecystostomy tube has been removed however there is concern as the patient has a new fluid collection in addition of the previous pseudocyst also previous pseudocyst seems to have increased in size and there is concern for possible infection. Discussed with Dr Hannah and plan for IR drainage of 2nd pseudocyst and patient now on Meropenem for now. 4. Hypotension: Based on records patient has been actually put on midodrine 5 mg p.o. tid due to ongoing hypotension even at discharge from [facility], this will be resumed and patient will be monitored closely. Lactic acid wnl On Abx. 5. Urinary retention, status post acute kidney injury at [facility] , renal function seems to be much better, Elder catheter in place for now. Monitor urine output and renal function. 6. Nutrition: will obtain previous orders from TPN patient is to go back on TPN in the next 24 hours 7. Sinus Tachycardia: Per report from [facility] patient has sinus tachycardia, EKG in the emergency department today reporting possible underlying A. fib. She will be admitted to telemetry close monitoring for now. Continue beta-blockers. 8. Venous thromboembolism with episode of DVT, status post IVC filter Prophylaxis: Protonix for GI prophylaxis, SCDs and status post IVC filter for DVT prophylaxis Disposition: CT guided drainage of new pseudocyst by IR if possible Follow up GI recs and cultures. Subjective 24 Hr Interval Summary Free Text/Dictation Patient doing OK OFF BiPAP and stable on NC CT guided drainage of pseudocyst will be ordered with culture to be sent Exam/Review of Systems Vital Signs Vitals Vital Signs Date Time Temp Pulse Resp B/P Pulse Ox O2 Delivery O2 Flow Rate FiO2 02/12/17 11:39 98.6 98 17 91/47 99 02/12/17 01:09 4.0 02/11/17 23:34 Nasal Cannula 02/11/17 14:10 45 Intake and Output 02/11/17 02/11/17 02/12/17 15:00 23:00 07:00 Intake Total 900 ml Output Total 1100 ml 700 ml Balance -1100 ml 200 ml Exam Constitutional: alert, frail, oriented (x2) Respiratory: diminished breath sounds (bases bilatrally ), other (much improved air movement ) Cardiovascular: other (sinus tachycardia better ) Gastrointestinal: soft, tender (some epigastric TTP ) Extremities: edema (+2 to 3 LE bilaterally ), normal pulses Neurological: HAND PICKER II-XII intact, nl mental status, nl speech, other ( generalised weakness ) Results Result Diagram: 02/12/17 0651 02/12/17 0651 Results 24 hrs Laboratory Tests Test 02/11/17 15:01 02/11/17 16:00 02/12/17 06:25 02/12/17 06:51 Blood Gas Specimen Source Blood arterial Arterial Blood Date Drawn 02/11/2017 3:30:48 PM Arterial Blood pH (Temp corrected) 7.490 H Arterial Blood pCO2 (Temp correct) 33.7 L Arterial Blood pO2 (Temp corrected) 78.0 L Arterial Blood HCO3 25.1 Arterial Blood Base Excess 1.8 Arterial Blood Oxygen Saturation 95.0 Shreyas Test ACCEPTAB Arterial Blood Gas Puncture Site Right Radial Arterial Blood Carboxyhemoglobin 0.1 Arterial Blood Methemoglobin 0.5 Blood Gas A-a O2 Differential 96.3 H Oxyhemoglobin Percent 94.4 Total Hemoglobin 8.5 L Blood Gas Temperature 37.0 Blood Gas Actual Respiration Rate 24 Blood Gas Modality NASAL CANNULA FiO2 30.0 Blood Gas Notified Whom NilayRAYMON RT Blood Gas Notified Time 02/11/2017 3:44:24 PM Sodium Level 143 145 H Potassium Level 4.0 4.3 Chloride Level 115 H 118 H Carbon Dioxide Level 29 28 Anion Gap 3 L 3 L Blood Urea Nitrogen 39 H 31 H Creatinine 0.45 0.44 Glucose Level 109 95 Calcium Level 8.5 8.8 Creatine Kinase < 20 L Creatine Kinase Index Creatinine Kinase MB (Mass) 0.25 Troponin I < 0.012 Lab Scanned Report BLOOD TRANSFUSION White Blood Count 11.3 H Red Blood Count 1.24 L Hemoglobin 7.6 L Hematocrit 13.2 L Mean Corpuscular Volume 106.5 H Mean Corpuscular Hemoglobin 61.3 H Mean Corpuscular Hemoglobin Concent 57.6 H Red Cell Distribution Width 23.9 H Platelet Count 166 # Mean Platelet Volume 12.8 H Neutrophils % 88.0 H Band Neutrophils % 5.0 Lymphocytes % 4.0 L Monocytes % 3.0 Eosinophils % Neutrophils # 9.9 H Lymphocytes # 0.5 L Monocytes # 0.3 Eosinophils # Magnesium Level 2.0 Total Bilirubin 1.9 H Direct Bilirubin 0.80 #H Indirect Bilirubin 1.1 Aspartate Amino Transf (AST/SGOT) 56 H Alanine Aminotransferase (ALT/SGPT) 50 Alkaline Phosphatase 211 H Total Protein 5.3 L Albumin 1.9 L Globulin 3.40 H Albumin/Globulin Ratio 0.55 Triglycerides Level 113 Cholesterol Level 65 L LDL Cholesterol, Calculated 33 HDL Cholesterol 9 L Cholesterol/HDL Ratio 7.2 Thyroid Stimulating Hormone (TSH) 1.680 Free Thyroxine 1.42 Medications Medications Current Medications Fluconazole (Diflucan) 200 mg DAILY PO Last administered on 02/12/17 10:36; Admin Dose 200 MG; Start 02/11/17 at 10:00 Metoprolol Tartrate (Lopressor) 25 mg BID PO Last administered on 02/11/17 21: 09; Admin Dose 25 MG; Start 02/11/17 at 21:00 Midodrine (Proamatine) 5 mg TID PO Last administered on 02/12/17 10:10; Admin Dose 5 MG; Start 02/11/17 at 13:00 Pantoprazole (Protonix Tab) 40 mg DAILY PO Last administered on 7/13/17at 10:10 ; Admin Dose 40 MG; Start 02/12/17 at 09:00 Ondansetron HCl (Zofran Inj) 4 mg Q6H PRN IV NAUSEA AND/OR VOMITING Last administered on 02/11/17 13:26; Admin Dose 4 MG; Start 02/11/17 at 10:00 Acetaminophen (Tylenol Tab) 650 mg Q6H PRN PO PAIN LEVEL 1-3 OR FEVER; Start at 10:00 Morphine Sulfate (morphine) 2 mg Q4H PRN IV PAIN LEVEL 7-10 Last administered on 02/12/17 10:16; Admin Dose 2 MG; Start 02/11/17 at 10:00 Docusate Sodium (Colace) 100 mg Q12H PRN PO CONSTIPATION; Start 02/11/17 at 10: 00 Bisacodyl 10 mg 10 mg DAILY PRN [place] CONSTIPATION; Start 02/11/17 at 10:00 Potassium Chloride/Dextrose/ Sod Cl 1,000 ml @ 75 mls/hr [id number] IV Last administered on 02/11/17 23:20; Admin Dose 75 MLS/HR; Start 02/11/17 at 10:00 Meropenem/Sodium Chloride (Merrem 1 Gm/50 ml (Pmx)) 50 ml @ 200 mls/hr Q12 IVPB Last administered on 02/12/17 10:10; Admin Dose 200 MLS/HR; Start at 18:00 Miscellaneous Information (Pending [facility] Order For Wound Care) This patient prado... PRN PRN XX WOUND CARE; Start 02/11/17 at 19:00 Furosemide (Lasix) 40 mg ONCE IV ; Start 02/12/17 at 10:30; Stop 02/13/17 at 10: 29 BONIFACIO COWART Feb 12, 2017 13:01
[2017-02-12] MEDS: COLLAGENASE 30 GM TUBE TOP SCH (13:30)
[2017-02-12 14:43] LABS: INR 1.41; PARTIAL THROMBOPLASTIN TIME 28.6 Sec (25.0-35.0); PROTIME 17.3 Sec (12.2-14.2); PT RATIO 1.4
[2017-02-12] MEDS: TPN 1,000 ML IV SCH (20:02)
[2017-02-13] VITALS (12 sets, daily range): BP systolic 108–126; BP diastolic 56–65; PULSE 80–101; RESP 16–20
[2017-02-13] MEDS: ONDANSETRON 4 MG INJ IV PRN (00:36)
[2017-02-13] MEDS: morphine 2 MG INJ IV PRN ×2 (01:50→09:45)
[2017-02-13 02:51] LABS: INR 1.43; PROTIME 17.5 Sec (12.2-14.2); PT RATIO 1.4
[2017-02-13 02:52] LABS: PARTIAL THROMBOPLASTIN TIME 28.4 Sec (25.0-35.0)
[2017-02-13 07:03] LABS: ADD SCAN DIFF NO
[2017-02-13 07:15] LABS: ABNORMAL IP MESSAGE 1; BASOPHILS % 0.1 % (0.0-2.0); EOSINOPHILS # 0.1 10^3/ul (0.0-0.5); EOSINOPHILS % 0.7 % (0.0-7.0); LYMPHOCYTES # 1.2 10^3/ul (0.8-2.9); LYMPHOCYTES % 13.5 % (15.0-51.0); MEAN CORPUSCULAR HEMOGLOBIN 51.4 pg (29.0-33.0); MEAN CORPUSCULAR VOLUME 97.1 fl (82.0-101.0); MEAN PLATELET VOLUME 13.3 fl (7.4-10.4); MONOCYTE # 0.2 10^3/ul (0.3-0.9); MONOCYTES % 1.9 % (0.0-11.0); NEUTROPHIL # 7.3 10^3/ul (1.6-7.5); NEUTROPHILS % 83.3 % (39.0-77.0); PLATELET COUNT 151 10^3/UL (140-415); RED CELL DISTRIBUTION WIDTH 22.8 % (11.5-14.5); WHITE BLOOD COUNT 8.8 10^3/ul (4.8-10.8)
[2017-02-13 07:39] LABS: MEAN CORPUSCULAR HGB CONC 52.9 g/dl (32.0-37.0); RED BLOOD COUNT 1.75 10^6/ul (4.20-5.40)
[2017-02-13 07:40] LABS: MAGNESIUM 2.2 mg/dl (1.7-2.5); PHOSPHORUS 4.3 mg/dl (2.5-4.9)
[2017-02-13 07:43] LABS: POTASSIUM 4.5 mmol/L (3.5-5.1)
[2017-02-13 07:44] LABS: CREATININE 0.59 mg/dl (0.44-1.00)
--- NOTE | 2017-02-13 08:13 | PQ ---
Date/Time of Note Date/Time of Note DATE: 02/13/17 TIME: 08:09 Physician Query Documentation Clarification Dear Dr. Loja, A review of the medical record found a need for documentation clarification. The following antibiotic is documented in the medical record: Meropenem/Sodium Chloride (Merrem 1 Gm/50 ml (Pmx)) 50 ml @ 200 mls/hr Q12 IVPB + URINE CULTURE Preliminary Organism 1 ENTEROCOCCUS SPECIES COLONY COUNT >100,000 CFU/ml Please clarify a diagnosis being treated. To facilitate accurate and complete coding, please shad ( x ) the suspected diagnosis that apply: ( ) Urinary tract infection ( ) Prophylaxis ( ) Other Please provide your response by clicking edit document, making your choice ( x ), click ok/save and finally click sign. You may also document your response on your progress notes. Thank you for your time. With appreciation, Marco Gastelum RN, BSN, CCS, CCDS Clinical [employer] [facility] Information Management, CDI and Coding Services [phone] Room # 1525 - [address]~ [id number] MARCO GASTELUM Feb 13, 2017 08:13
[2017-02-13] MEDS: MEROPENEM 1 GM/50ML(PMX) 50 ML IVPB SCH ×2 (09:46→21:55)
[2017-02-13] MEDS: PANTOPRAZOLE (EC) 40 MG TAB PO SCH (09:46)
[2017-02-13] MEDS: MIDODRINE 5 MG TAB PO SCH ×3 (09:47→21:55)
[2017-02-13] MEDS: COLLAGENASE 30 GM TUBE TOP SCH (09:47)
[2017-02-13] MEDS: METOPROLOL 25 MG TAB PO SCH ×2 (09:47→21:55)
--- NOTE | 2017-02-13 10:34 | CONS ---
Date/Time of Note Date/Time of Note DATE: 02/13/17 TIME: 10:18 Assessment/Plan Assessment/Plan Additional Assessment/Plan Assessment * Anemia Acute vs chronic * Pancreatitis with Pancreatic pseudocyst * H/O tube cholecystostomy * H/O ERCP removal of stone with biliary stent * Respiratory failure improved Plan * EGD planned, patient and son DPOA refused * Continue present regimen * monitor hemoglobin and hematocrit daily and transfuse per protocol Consultation Date/Type/Reason Admit Date/Time Date of Consultation: Feb 13, 2017 Type of Consultation: Gasroenterology Reason for Consultation Anemia Referring Provider: BONIFACIO COWART Hx of Present Illness 86 year old female with past medical history cholecystitis,choledocholithiasis,s /p tube cystostomy,s/p ERCP extraction of stone with biliary stent,pancreatic pseudocysts,DVT,s/p IVC filter,on TPN was admitted because shortness of breath.Initial laboratory workup revealed a hemoglobin of 6 .received 4 units of PRBC,present hemoglobin is 9.0.Ct scan of abdomen . Loculated upper abdominal fluid collections are identified, suggestive of pseudocysts, new and/or significantly increased in size when compared to the prior exam, as discussed above. New gas bubbles are present within these collections, concerning for infected pseudocysts. There are mild to moderate bilateral pleural effusions, increased in size, with associated bibasilar atelectasis.. Large hiatal hernia is again seen. Previously seen cholecystostomy tube has been removed. Common bile duct stent remains in place. There has been interval placement of an IVC filter. Elder catheter balloon is within the urinary bladder. Small bowel wall thickening and mesenteric edema are identified, suggestive of enteritis, increased from prior CT. There is no evidence of bowel obstruction or perforation. Presently .no active bleeding noted ,afebrile,denies any tenderness,. We have discussed the planned procedure with his son and agreed with the planned procedure if her mother agrees.We have spoke with the family and agreed with the planned procedure. Constitutional: requiring IVF Eyes: no complaints ENT: no complaints Respiratory: shortness of breath Cardiovascular: other (Tachycardia) Gastrointestinal: pain (Upper, mild) Genitourinary: no complaints, other (Elder catheter) Musculoskeletal: other (Generalized weakness) Neurologic: no complaints Endocrine: no complaints Lymphatic: no complaints Psychological: no complaints Past Medical History Medical History: deep vein thrombosis, gallstones Past Surgical History Past Surgical Hx: endoscopy, other (ivc filter,s/p tube cholecystostomy) Social History Alcohol Use: none Smoking Status: Never smoker Exam/Review of Systems Vital Signs Vitals Vital Signs Date Time Temp Pulse Resp B/P Pulse Ox O2 Delivery O2 Flow Rate FiO2 02/13/17 10:10 98 3.0 02/13/17 08:00 94 02/13/17 07:34 100.1 20 110/60 02/12/17 20:15 Nasal Cannula 02/11/17 14:10 45 Intake and Output 02/12/17 02/12/17 02/13/17 15:00 23:00 07:00 Intake Total 120 ml 1050 ml Output Total 1300 ml 1300 ml Balance -1180 ml -250 ml Exam Constitutional: alert, oriented, well developed Psych: nl mood/affect, no complaints Head: atraumatic, normocephalic Eyes: EOMI, PERRL, nl conjunctiva, nl lids, nl sclera Neck: non-tender, supple Respiratory: diminished breath sounds, normal air movement Cardiovascular: nl pulses, regular rate and rhythm Gastrointestinal: nl liver, spleen, non-tender, soft Musculoskeletal: nl extremities to inspection, nl gait and stance Extremities: normal pulses Neurological: nl speech, nl strength Skin: nl turgor, No rash or lesions Lymph: nl lymph nodes Results Result Diagram: 02/13/1717 02/13/17 0610 Results 24 hrs Laboratory Tests Test 02/12/17 13:12 02/13/17 02:10 02/13/17 06:00 02/13/17 06:10 Prothrombin Time 17.3 H 17.5 H Prothrombin Time Ratio 1.4 1.4 INR International Normalized Ratio 1.41 1.43 Activated Partial Thromboplast Time 28.6 28.4 Phosphorus Level 4.3 Magnesium Level 2.2 Sodium Level 146 H Potassium Level 4.5 Chloride Level 115 H Carbon Dioxide Level 29 Anion Gap 7 L Blood Urea Nitrogen 30 H Creatinine 0.59 Glucose Level 281 #H Calcium Level 9.0 Test 02/13/17 06:17 02/13/17 08:00 White Blood Count 8.8 # Red Blood Count 1.75 #L Hemoglobin 9.0 L Hematocrit 17.0 #L Mean Corpuscular Volume 97.1 Mean Corpuscular Hemoglobin 51.4 H Mean Corpuscular Hemoglobin Concent 52.9 H Red Cell Distribution Width 22.8 H Platelet Count 151 Mean Platelet Volume 13.3 H Neutrophils % 83.3 H Lymphocytes % 13.5 L Monocytes % 1.9 Eosinophils % 0.7 Basophils % 0.1 Nucleated Red Blood Cells % 0.0 Neutrophils # 7.3 Lymphocytes # 1.2 Monocytes # 0.2 L Eosinophils # 0.1 Basophils # 0.0 Nucleated Red Blood Cells # 0.0 Lab Scanned Report BLOOD TRANSFUSION Medications Medications Current Medications Fluconazole (Diflucan) 200 mg DAILY PO Last administered on 02/12/17 10:36; Admin Dose 200 MG; Start 02/11/17 at 10:00 Metoprolol Tartrate (Lopressor) 25 mg BID PO Last administered on 02/13/17 09: 47; Admin Dose 25 MG; Start 02/11/17 at 21:00 Midodrine (Proamatine) 5 mg TID PO Last administered on 02/13/17 09:47; Admin Dose 5 MG; Start 02/11/17 at 13:00 Pantoprazole (Protonix Tab) 40 mg DAILY PO Last administered on 02/13/17 09:46 ; Admin Dose 40 MG; Start 02/12/17 at 09:00 Ondansetron HCl (Zofran Inj) 4 mg Q6H PRN IV NAUSEA AND/OR VOMITING Last administered on 02/13/17 00:36; Admin Dose 4 MG; Start 02/11/17 at 10:00 Acetaminophen (Tylenol Tab) 650 mg Q6H PRN PO PAIN LEVEL 1-3 OR FEVER; Start at 10:00 Morphine Sulfate (morphine) 2 mg Q4H PRN IV PAIN LEVEL 7-10 Last administered on 02/13/17 09:45; Admin Dose 2 MG; Start 02/11/17 at 10:00 Docusate Sodium (Colace) 100 mg Q12H PRN PO CONSTIPATION; Start 02/11/17 at 10: 00 Bisacodyl 10 mg 10 mg DAILY PRN [place] CONSTIPATION; Start 02/11/17 at 10:00 Meropenem/Sodium Chloride (Merrem 1 Gm/50 ml (Pmx)) 50 ml @ 200 mls/hr Q12 IVPB Last administered on 02/13/17 09:46; Admin Dose 200 MLS/HR; Start at 18:00 Miscellaneous Information (Pending Santyl Order For Wound Care) This patient prado... PRN PRN XX WOUND CARE; Start 02/11/17 at 19:00 Furosemide (Lasix) 40 mg ONCE IV Last administered on 02/12/17 16:27; Admin Dose 40 MG; Start 02/12/17 at 10:30; Stop 02/13/17 at 10:29 Collagenase (Santyl) 1 applic DAILY TOP Last administered on 02/13/17 09:47; Admin Dose 1 APPLIC; Start 02/12/17 at 13:30 Diphenhydramine HCl 25 mg 25 mg Q6H PRN IV ITCHING; Start 02/12/17 at 14:00 Total Parenteral Nutrition (Tpn) 1,000 ml @ 40 mls/hr Q24H IV Last administered on 02/12/17 20:02; Admin Dose 40 MLS/HR; Start 02/12/17 at 18:00 AMBER NUR MD Feb 13, 2017 10:30 AMBER NUR MD Feb 13, 2017 10:30
[2017-02-13 13:20] LABS: PARTIAL THROMBOPLASTIN TIME 29.2 Sec (25.0-35.0)
--- NOTE | 2017-02-13 13:48 | PN ---
Date/Time of Note Date/Time of Note DATE: 02/13/17 TIME: 13:15 Assessment/Plan VTE Prophylaxis VTE Prophylaxis Intervention: SCD's Lines/Catheters IV Catheter Type (from Nrsg): PICC Line Central line still needed: Yes (TPN) Urinary Cath still in place: Yes Reason Cath still needed: other (indicate) (monitor UOP ) Assessment/Plan Assessment/Plan 86 yo female with: 1. Acute on chronic anemia with hemoglobin of 6.6 on admission, s/p 4 units pRBC but Hb up to 9. Appreciate GI consult, patient to have EGD today with Dr. Hill Appreciate recommendations of Dr Hannah, needs CT guided drainage of 2nd pseudocyst by IR but with even with FFP INR still at 1.4. Mixing study and lupus anticoagulant pending. Hematology consult as needed Monitor H&H. 2. Respiratory distress, in setting of pleural effusions, atelectasis, severe anemia and poor overall clinical status. PRN BiPAP for now on NC and Lasix prn especially with blood transfusion. CXR slightly better today If needed thoracentesis will be repeated. Monitor respiratory status Of note she did have bilateral thoracentesis at on her admission there last month 3. Severe pancreatitis with pseudocyst, currently on TPN and clear liquids. CAT scan of the abdomen and pelvis has been compared to the one done at [facility] approximately 3 weeks ago, cholecystostomy tube has been removed however there is concern as the patient has a new fluid collection in addition of the previous pseudocyst also previous pseudocyst seems to have increased in size and there is concern for possible infection. Discussed with Dr Hannah and plan for IR drainage of 2nd pseudocyst Continue Meropenem. 4. Hypotension: Based on records patient has been actually put on midodrine 5 mg p.o. tid due to ongoing hypotension even at discharge from [facility], this will be resumed and patient will be monitored closely. Lactic acid wnl On Abx. Blood pressure much improved but patient still on Midodrine. 5. Urinary retention, status post acute kidney injury at [facility] , renal function seems to be much better, Elder catheter in place. Monitor urine output and renal function. 6. Nutrition: Back on TPN, pharmacy to adjust. 7. Sinus Tachycardia: Per report from [facility] patient has sinus tachycardia, EKG in the emergency department today reporting possible underlying A. fib. She will be admitted to telemetry close monitoring for now. Continue beta-blockers. Much improved 8. Venous thromboembolism with episode of DVT, status post IVC filter 9. Mild coagulopathy: INR did not respond to FFP, mixing study pending, lupus anticoagulant pending. If patient seems to have an antibody, will have hematology weigh in to clear for pseudocyst drainage. Prophylaxis: Protonix for GI prophylaxis, SCDs and status post IVC filter for DVT prophylaxis Disposition: CT guided drainage of new pseudocyst by IR if possible Follow up GI recs and cultures. Subjective 24 Hr Interval Summary Free Text/Dictation Patient remains hemodynamically stable with better blood pressure and heart rate. White blood cell count is within normal now. She is on IV antibiotics. Hemoglobin is improved post 4 units packed red blood cells. She will go for EGD today. Respiratory status is stable. She still awaiting pseudocyst drainage, however she does have mild coagulopathy not corrected with FFP therefore additional workup is needed versus additional FFP prior to pseudocyst drainage. Patient back on TPN and currently n.p.o. for EGD today otherwise she is on clear liquids thickened. Exam/Review of Systems Vital Signs Vitals Vital Signs Date Time Temp Pulse Resp B/P Pulse Ox O2 Delivery O2 Flow Rate FiO2 02/13/17 12:00 101 02/13/17 10:58 99.3 18 115/57 98 02/13/17 10:10 3.0 02/12/17 20:15 Nasal Cannula 02/11/17 14:10 45 Intake and Output 02/12/17 02/12/17 02/13/17 14:59 22:59 06:59 Intake Total 120 ml 1050 ml Output Total 1300 ml 1300 ml Balance -1180 ml -250 ml Exam Constitutional: alert, oriented (x2) Respiratory: diminished breath sounds (at bases bilaterally ) Cardiovascular: nl pulses, regular rate and rhythm Gastrointestinal: non-tender, soft Musculoskeletal: nl extremities to inspection Extremities: edema (+2 ), normal pulses, other (no clubbing or cyanosis ) Neurological: S[employer] WRAPPER II-XII intact, lethargic, other (generalised weakness ) Results Result Diagram: 02/13/17 0617 02/13/17 0610 Results 24 hrs Laboratory Tests Test 02/13/17 02:10 02/13/17 06:00 02/13/17 06:10 02/13/17 06:17 Prothrombin Time 17.5 H Prothrombin Time Ratio 1.4 INR International Normalized Ratio 1.43 Activated Partial Thromboplast Time 28.4 Phosphorus Level 4.3 Magnesium Level 2.2 Sodium Level 146 H Potassium Level 4.5 Chloride Level 115 H Carbon Dioxide Level 29 Anion Gap 7 L Blood Urea Nitrogen 30 H Creatinine 0.59 Glucose Level 281 #H Calcium Level 9.0 White Blood Count 8.8 # Red Blood Count 1.75 #L Hemoglobin 9.0 L Hematocrit 17.0 #L Mean Corpuscular Volume 97.1 Mean Corpuscular Hemoglobin 51.4 H Mean Corpuscular Hemoglobin Concent 52.9 H Red Cell Distribution Width 22.8 H Platelet Count 151 Mean Platelet Volume 13.3 H Neutrophils % 83.3 H Lymphocytes % 13.5 L Monocytes % 1.9 Eosinophils % 0.7 Basophils % 0.1 Nucleated Red Blood Cells % 0.0 Neutrophils # 7.3 Lymphocytes # 1.2 Monocytes # 0.2 L Eosinophils # 0.1 Basophils # 0.0 Nucleated Red Blood Cells # 0.0 Test 02/13/17 08:00 02/13/17 10:29 Lab Scanned Report BLOOD TRANSFUSION Activated Partial Thromboplast Time 29.2 Mix PTT Normal Plasma Immediate Pending Medications Medications Current Medications Fluconazole (Diflucan) 200 mg DAILY PO Last administered on 02/12/17 10:36; Admin Dose 200 MG; Start 02/11/17 at 10:00 Metoprolol Tartrate (Lopressor) 25 mg BID PO Last administered on 02/13/17 09: 47; Admin Dose 25 MG; Start 02/11/17 at 21:00 Midodrine (Proamatine) 5 mg TID PO Last administered on 02/13/17 09:47; Admin Dose 5 MG; Start 02/11/17 at 13:00 Pantoprazole (Protonix Tab) 40 mg DAILY PO Last administered on 02/13/17 09:46 ; Admin Dose 40 MG; Start 02/12/17 at 09:00 Ondansetron HCl (Zofran Inj) 4 mg Q6H PRN IV NAUSEA AND/OR VOMITING Last administered on 02/13/17 00:36; Admin Dose 4 MG; Start 02/11/17 at 10:00 Acetaminophen (Tylenol Tab) 650 mg Q6H PRN PO PAIN LEVEL 1-3 OR FEVER; Start at 10:00 Morphine Sulfate (morphine) 2 mg Q4H PRN IV PAIN LEVEL 7-10 Last administered on 02/13/17 09:45; Admin Dose 2 MG; Start 02/11/17 at 10:00 Docusate Sodium (Colace) 100 mg Q12H PRN PO CONSTIPATION; Start 02/11/17 at 10: 00 Bisacodyl 10 mg 10 mg DAILY PRN [place] CONSTIPATION; Start 02/11/17 at 10:00 Meropenem/Sodium Chloride (Merrem 1 Gm/50 ml (Pmx)) 50 ml @ 200 mls/hr Q12 IVPB Last administered on 02/13/17 09:46; Admin Dose 200 MLS/HR; Start at 18:00 Miscellaneous Information (Pending Santyl Order For Wound Care) This patient prado... PRN PRN XX WOUND CARE; Start 02/11/17 at 19:00 Collagenase (Santyl) 1 applic DAILY TOP Last administered on 02/13/17 09:47; Admin Dose 1 APPLIC; Start 02/12/17 at 13:30 Diphenhydramine HCl 25 mg 25 mg Q6H PRN IV ITCHING; Start 02/12/17 at 14:00 Total Parenteral Nutrition (Tpn) 1,000 ml @ 40 mls/hr Q24H IV Last administered on 02/12/17 20:02; Admin Dose 40 MLS/HR; Start 02/12/17 at 18:00 BONIFACIO COWART Feb 13, 2017 13:25
[2017-02-13] MEDS: FLUCONAZOLE 200 MG TAB PO SCH (14:31)
[2017-02-13] MEDS: TPN 1,000 ML IV SCH (23:55)
[2017-02-14] VITALS (12 sets, daily range): BP systolic 110–117; BP diastolic 55–80; PULSE 80–100; RESP 16–20
[2017-02-14 06:31] LABS: ADD SCAN DIFF NO
[2017-02-14 06:49] LABS: INR 1.4; PROTIME 17.2 Sec (12.2-14.2); PT RATIO 1.3
[2017-02-14 06:50] LABS: PARTIAL THROMBOPLASTIN TIME 31.7 Sec (25.0-35.0)
[2017-02-14 07:13] LABS: ABNORMAL IP MESSAGE 1; BASOPHILS % 0.2 % (0.0-2.0); EOSINOPHILS # 0.1 10^3/ul (0.0-0.5); EOSINOPHILS % 0.6 % (0.0-7.0); HEMATOCRIT 29.3 % (37.0-47.0); HEMOGLOBIN 9.1 g/dl (12.0-16.0); LYMPHOCYTES # 1.5 10^3/ul (0.8-2.9); LYMPHOCYTES % 17.7 % (15.0-51.0); MEAN CORPUSCULAR HEMOGLOBIN 28.8 pg (29.0-33.0); MEAN CORPUSCULAR HGB CONC 31.1 g/dl (32.0-37.0); MEAN PLATELET VOLUME 13.3 fl (7.4-10.4); MONOCYTE # 0.2 10^3/ul (0.3-0.9); MONOCYTES % 2.4 % (0.0-11.0); NEUTROPHIL # 6.5 10^3/ul (1.6-7.5); NEUTROPHILS % 78.7 % (39.0-77.0); PLATELET COUNT 148 10^3/UL (140-415); RED BLOOD COUNT 3.16 10^6/ul (4.20-5.40); RED CELL DISTRIBUTION WIDTH 19.5 % (11.5-14.5); WHITE BLOOD COUNT 8.3 10^3/ul (4.8-10.8)
[2017-02-14 07:18] LABS: MEAN CORPUSCULAR VOLUME 92.7 fl (82.0-101.0)
[2017-02-14 07:21] LABS: ALBUMIN 1.9 g/dl (3.3-4.9); ALBUMIN/GLOBULIN RATIO 0.55; BILIRUBIN,DIRECT 0.3 mg/dl (0.00-0.20); BILIRUBIN,TOTAL 1.3 mg/dl (0.2-1.3); CALCIUM 8.9 mg/dl (8.4-10.2); CREATININE 0.46 mg/dl (0.44-1.00); POTASSIUM 3.7 mmol/L (3.5-5.1); TOTAL PROTEIN 5.3 g/dl (6.1-8.1)
[2017-02-14 07:23] LABS: MAGNESIUM 2.1 mg/dl (1.7-2.5); PHOSPHORUS 3.1 mg/dl (2.5-4.9)
--- NOTE | 2017-02-14 07:59 | PN ---
Date/Time of Note Date/Time of Note DATE: 02/14/17 TIME: 07:54 Assessment/Plan VTE Prophylaxis VTE Prophylaxis Intervention: other (Caval umbrella) Lines/Catheters [facility] Type (from [facility] PICC Line Central line still needed: Yes Urinary Cath still in place: Yes Reason Cath still needed: other (indicate) (Monitoring) Assessment/Plan Chief Complaint/Hosp Course The patient is an 86-year-old female who is known to me from laparoscopic lysis of adhesions with release of small bowel obstruction earlier this year. Approximately 2 months ago the patient was admitted to [facility] with cholecystitis and choledocholithiasis. She underwent an ERCP with successful stone extraction and placement of stent. The patient was too frail for cholecystectomy, so cholecystostomy was performed. Several weeks later cholangiogram through cholecystostomy showed a patent cystic duct and the cholecystostomy catheter was removed. In the interim the patient developed a pseudocyst. She had a very complex hospitalization with multiple medical issues , but was ultimately able to be discharged to a snf facility with TPN. She was admitted yesterday because of shortness of breath, tachycardia and hypotension. She was found to be anemic with a hemoglobin of 6.6. Imaging studies showed enlargement of pseudocyst with possible development of a second pseudocyst in the body and tail of the pancreas. The patient was admitted and surgical consultation was requested in that regard. Problems: Assessment/Plan Patient is now awake and alert, and markedly symptomatically improved. She complains of minimal abdominal pain Leukocytosis has resolved Plan: Continue medical management. There are no new surgical recommendations Subjective 24 Hr Interval Summary Free Text/Dictation Hospital events noted. Exam/Review of Systems Vital Signs Vitals Vital Signs Date Time Temp Pulse Resp B/P Pulse Ox O2 Delivery O2 Flow Rate FiO2 02/14/17 07:25 98.0 88 18 110/63 95 02/14/17 04:27 3.0 02/13/17 20:20 Nasal Cannula 02/11/17 14:10 45 Intake and Output 02/13/17 02/13/17 02/14/17 14:59 22:59 06:59 Intake Total 50 ml 430 ml 250 ml Output Total 600 ml Balance 50 ml -170 ml 250 ml Results Result Diagram: 02/14/17 0557 02/14/17 0557 Results 24 hrs Laboratory Tests Test 02/13/17 08:00 02/13/17 10:29 02/14/17 05:57 Lab Scanned Report BLOOD TRANSFUSION Activated Partial Thromboplast Time 29.2 31.7 Mix PTT Normal Plasma Immediate White Blood Count 8.3 Red Blood Count 3.16 #L Hemoglobin 9.1 L Hematocrit 29.3 #L Mean Corpuscular Volume 92.7 Mean Corpuscular Hemoglobin 28.8 #L Mean Corpuscular Hemoglobin Concent 31.1 #L Red Cell Distribution Width 19.5 H Platelet Count 148 Mean Platelet Volume 13.3 H Neutrophils % 78.7 H Lymphocytes % 17.7 Monocytes % 2.4 Eosinophils % 0.6 Basophils % 0.2 Nucleated Red Blood Cells % 0.0 Neutrophils # 6.5 Lymphocytes # 1.5 Monocytes # 0.2 L Eosinophils # 0.1 Basophils # 0.0 Nucleated Red Blood Cells # 0.0 Prothrombin Time 17.2 H Prothrombin Time Ratio 1.3 INR International Normalized Ratio 1.40 Sodium Level 157 H Potassium Level 3.7 Chloride Level 118 H Carbon Dioxide Level 31 Anion Gap 12 Blood Urea Nitrogen 30 H Creatinine 0.46 Glucose Level 117 # Calcium Level 8.9 Phosphorus Level 3.1 Magnesium Level 2.1 Total Bilirubin 1.3 Direct Bilirubin 0.30 #H Indirect Bilirubin 1.0 Aspartate Amino Transf (AST/SGOT) 41 Alanine Aminotransferase (ALT/SGPT) 39 Alkaline Phosphatase 185 H Total Protein 5.3 L Albumin 1.9 L Globulin 3.40 H Albumin/Globulin Ratio 0.55 Medications Medications Current Medications Fluconazole (Diflucan) 200 mg DAILY PO Last administered on 02/13/17 14:31; Admin Dose 200 MG; Start 02/11/17 at 10:00 Metoprolol Tartrate (Lopressor) 25 mg BID PO Last administered on 02/13/17 21: 55; Admin Dose 25 MG; Start 02/11/17 at 21:00 Midodrine (Proamatine) 5 mg TID PO Last administered on 02/13/17 21:55; Admin Dose 5 MG; Start 02/11/17 at 13:00 Pantoprazole (Protonix Tab) 40 mg DAILY PO Last administered on 02/13/17 09:46 ; Admin Dose 40 MG; Start 02/12/17 at 09:00 Ondansetron HCl (Zofran Inj) 4 mg Q6H PRN IV NAUSEA AND/OR VOMITING Last administered on 02/13/17 00:36; Admin Dose 4 MG; Start 02/11/17 at 10:00 Acetaminophen (Tylenol Tab) 650 mg Q6H PRN PO PAIN LEVEL 1-3 OR FEVER; Start at 10:00 Morphine Sulfate (morphine) 2 mg Q4H PRN IV PAIN LEVEL 7-10 Last administered on 02/13/17 09:45; Admin Dose 2 MG; Start 02/11/17 at 10:00 Docusate Sodium (Colace) 100 mg Q12H PRN PO CONSTIPATION; Start 02/11/17 at 10: 00 Bisacodyl 10 mg 10 mg DAILY PRN [place] CONSTIPATION; Start 02/11/17 at 10:00 Meropenem/Sodium Chloride (Merrem 1 Gm/50 ml (Pmx)) 50 ml @ 200 mls/hr Q12 IVPB Last administered on 02/13/17 21:55; Admin Dose 200 MLS/HR; Start at 18:00 Miscellaneous Information (Pending Santyl Order For Wound Care) This patient prado... PRN PRN XX WOUND CARE; Start 02/11/17 at 19:00 Collagenase (Santyl) 1 applic DAILY TOP Last administered on 02/13/17 09:47; Admin Dose 1 APPLIC; Start 02/12/17 at 13:30 Diphenhydramine HCl 25 mg 25 mg Q6H PRN IV ITCHING; Start 02/12/17 at 14:00 Total Parenteral Nutrition (Tpn) 1,000 ml @ 40 mls/hr Q24H IV Last administered on 02/13/17 23:55; Admin Dose 40 MLS/HR; Start 02/12/17 at 18:00 STEPHANIE BRADY MD Feb 14, 2017 07:59
[2017-02-14] MEDS: COLLAGENASE 30 GM TUBE TOP SCH (08:37)
[2017-02-14] MEDS: MEROPENEM 1 GM/50ML(PMX) 50 ML IVPB SCH ×2 (09:01→21:11)
[2017-02-14] MEDS: METOPROLOL 25 MG TAB PO SCH ×2 (09:01→21:12)
[2017-02-14] MEDS: FLUCONAZOLE 200 MG TAB PO SCH (09:01)
[2017-02-14] MEDS: MIDODRINE 5 MG TAB PO SCH ×3 (09:01→21:12)
[2017-02-14] MEDS: PANTOPRAZOLE (EC) 40 MG TAB PO SCH (09:02)
--- NOTE | 2017-02-14 11:17 | PN ---
Date/Time of Note Date/Time of Note DATE: 02/14/17 TIME: 11:11 Assessment/Plan VTE Prophylaxis VTE Prophylaxis Intervention: SCD's Lines/Catheters IV Cathe[facility] Type ([facility] PICC Line Central line still needed: Yes Urinary Cath still in place: Yes Reason Cath still needed: urinary retention Assessment/Plan Chief Complaint/Hosp Course 86 year old female with past medical history cholecystitis,choledocholithiasis,s /p tube cystostomy,s/p ERCP extraction of stone with biliary stent,pancreatic pseudocysts,DVT,s/p IVC filter,on TPN was admitted because shortness of breath.Initial laboratory workup revealed a hemoglobin of 6 .received 4 units of PRBC,present hemoglobin is 9.0.Ct scan of abdomen . Loculated upper abdominal fluid collections are identified, suggestive of pseudocysts, new and/or significantly increased in size when compared to the prior exam, as discussed above. New gas bubbles are present within these collections, concerning for infected pseudocysts. There are mild to moderate bilateral pleural effusions, increased in size, with associated bibasilar atelectasis.. Large hiatal hernia is again seen. Previously seen cholecystostomy tube has been removed. Common bile duct stent remains in place. There has been interval placement of an IVC filter. Elder catheter balloon is within the urinary bladder. Small bowel wall thickening and mesenteric edema are identified, suggestive of enteritis, increased from prior CT. There is no evidence of bowel obstruction or perforation. Presently .no active bleeding noted ,afebrile,denies any tenderness,. We have discussed the planned procedure with his son and agreed with the planned procedure if her mother agrees.We have spoke with the family and agreed with the planned procedure. Problems: Assessment/Plan Assessment * Anemia * Refused EGD * Pancreatitis with Pancreatic pseudocyst * H/O tube cholecystostomy * H/O ERCP removal of stone with biliary stent * Respiratory failure improved Plan * Continue present regimen * Surgical management of pseudocyst * monitor hemoglobin and hematocrit daily and transfuse per protocol Subjective 24 Hr Interval Summary Free Text/Dictation Course reviewed with nursing staff c/o abdominal distention and moderate pain H/H stable Exam/Review of Systems Vital Signs Vitals Vital Signs Date Time Temp Pulse Resp B/P Pulse Ox O2 Delivery O2 Flow Rate FiO2 02/14/17 10:50 98.4 94 17 110/60 98 02/14/17 04:27 3.0 02/13/17 20:20 Nasal Cannula 02/11/17 14:10 45 Intake and Output 02/13/17 02/13/17 02/14/17 15:00 23:00 07:00 Intake Total 50 ml 630 ml 50 ml Output Total 600 ml Balance 50 ml 30 ml 50 ml Exam Constitutional: alert, oriented, well developed Head: atraumatic, normocephalic Eyes: EOMI, PERRL, nl conjunctiva, nl lids, nl sclera ENMT: nl external ears & nose, nl lips & teeth, nl nasal mucosa & septum Neck: non-tender, supple Respiratory: clear to auscultation, normal air movement Cardiovascular: nl pulses, regular rate and rhythm Gastrointestinal: bowel sounds, distended, firm, tender (diffusely tender), No rebound or guarding Musculoskeletal: nl extremities to inspection Extremities: normal pulses Skin: nl turgor, No rash or lesions Lymph: nl lymph nodes Results Result Diagram: 02/14/17 0557 02/14/17 0557 Results 24 hrs Laboratory Tests Test 02/14/17 05:57 White Blood Count 8.3 Red Blood Count 3.16 #L Hemoglobin 9.1 L Hematocrit 29.3 #L Mean Corpuscular Volume 92.7 Mean Corpuscular Hemoglobin 28.8 #L Mean Corpuscular Hemoglobin Concent 31.1 #L Red Cell Distribution Width 19.5 H Platelet Count 148 Mean Platelet Volume 13.3 H Neutrophils % 78.7 H Lymphocytes % 17.7 Monocytes % 2.4 Eosinophils % 0.6 Basophils % 0.2 Nucleated Red Blood Cells % 0.0 Neutrophils # 6.5 Lymphocytes # 1.5 Monocytes # 0.2 L Eosinophils # 0.1 Basophils # 0.0 Nucleated Red Blood Cells # 0.0 Prothrombin Time 17.2 H Prothrombin Time Ratio 1.3 INR International Normalized Ratio 1.40 Activated Partial Thromboplast Time 31.7 Sodium Level 157 H Potassium Level 3.7 Chloride Level 118 H Carbon Dioxide Level 31 Anion Gap 12 Blood Urea Nitrogen 30 H Creatinine 0.46 Glucose Level 117 # Calcium Level 8.9 Phosphorus Level 3.1 Magnesium Level 2.1 Total Bilirubin 1.3 Direct Bilirubin 0.30 #H Indirect Bilirubin 1.0 Aspartate Amino Transf (AST/SGOT) 41 Alanine Aminotransferase (ALT/SGPT) 39 Alkaline Phosphatase 185 H Total Protein 5.3 L Albumin 1.9 L Globulin 3.40 H Albumin/Globulin Ratio 0.55 Medications Medications Current Medications Fluconazole (Diflucan) 200 mg DAILY PO Last administered on 02/14/17 09:01; Admin Dose 200 MG; Start 02/11/17 at 10:00 Metoprolol Tartrate (Lopressor) 25 mg BID PO Last administered on 02/14/17 09: 01; Admin Dose 25 MG; Start 02/11/17 at 21:00 Midodrine (Proamatine) 5 mg TID PO Last administered on 02/14/17 09:01; Admin Dose 5 MG; Start 02/11/17 at 13:00 Pantoprazole (Protonix Tab) 40 mg DAILY PO Last administered on 02/14/17 09:02 ; Admin Dose 40 MG; Start 02/12/17 at 09:00 Ondansetron HCl (Zofran Inj) 4 mg Q6H PRN IV NAUSEA AND/OR VOMITING Last administered on 02/13/17 00:36; Admin Dose 4 MG; Start 02/11/17 at 10:00 Acetaminophen (Tylenol Tab) 650 mg Q6H PRN PO PAIN LEVEL 1-3 OR FEVER; Start at 10:00 Morphine Sulfate (morphine) 2 mg Q4H PRN IV PAIN LEVEL 7-10 Last administered on 02/13/17 09:45; Admin Dose 2 MG; Start 02/11/17 at 10:00 Docusate Sodium (Colace) 100 mg Q12H PRN PO CONSTIPATION; Start 02/11/17 at 10: 00 Bisacodyl 10 mg 10 mg DAILY PRN [place] CONSTIPATION; Start 02/11/17 at 10:00 Meropenem/Sodium Chloride (Merrem 1 Gm/50 ml (Pmx)) 50 ml @ 200 mls/hr Q12 IVPB Last administered on 02/14/17 09:01; Admin Dose 200 MLS/HR; Start at 18:00 Miscellaneous Information (Pending Santyl Order For Wound Care) This patient prado... PRN PRN XX WOUND CARE; Start 02/11/17 at 19:00 Collagenase (Santyl) 1 applic DAILY TOP Last administered on 02/14/17 08:37; Admin Dose 1 APPLIC; Start 02/12/17 at 13:30 Diphenhydramine HCl 25 mg 25 mg Q6H PRN IV ITCHING; Start 02/12/17 at 14:00 Total Parenteral Nutrition (Tpn) 1,000 ml @ 40 mls/hr Q24H IV Last administered on 02/13/17t 23:55; Admin Dose 40 MLS/HR; Start 02/12/17 at 18:00 AMBER NUR MD Feb 14, 2017 11:16
--- NOTE | 2017-02-14 14:05 | PN ---
Date/Time of Note Date/Time of Note DATE: 02/14/17 TIME: 13:53 Assessment/Plan VTE Prophylaxis VTE Prophylaxis Intervention: SCD's Lines/Catheters IV Catheter Type (from Nrsg): PICC Line Central line still needed: Yes (For IV access and TPN) Urinary Cath still in place: Yes Reason Cath still needed: other (indicate) (Monitor urine output) Assessment/Plan Assessment/Plan 86 yo female with: 1. Acute on chronic anemia with hemoglobin of 6.6 on admission, s/p 4 units pRBC but Hb up to 9.1 and has been stable for the past 2 days. Appreciate GI consult, patient now has declined EGD. Appreciate recommendations of Dr Hannah, needs CT guided drainage of 2nd pseudocyst by IR but with even with FFP INR still at 1.4. Mixing study and lupus anticoagulant pending. Will give vitamin K, repeat INR and hematology consult as needed Monitor H&H. 2. Respiratory distress, in setting of pleural effusions, atelectasis, severe anemia and poor overall clinical status. PRN BiPAP for now on NC and Lasix prn especially with blood transfusion. CXR slightly better. If needed thoracentesis will be repeated. Monitor respiratory status Of note she did have bilateral thoracentesis at [facility] on her admission there last month 3. Severe pancreatitis with pseudocyst, currently on TPN and clear liquids. CAT scan of the abdomen and pelvis has been compared to the one done at [facility] approximately 3 weeks ago, cholecystostomy tube has been removed however there is concern as the patient has a new fluid collection in addition of the previous pseudocyst also previous pseudocyst seems to have increased in size and there is concern for possible infection. Discussed with Dr Hannah and plan for IR drainage of 2nd pseudocyst when coagulation factor appropriate Continue Meropenem. 4. Hypotension: Based on records patient has been actually put on midodrine 5 mg p.o. tid due to ongoing hypotension even at discharge from [facility], this will be resumed and patient will be monitored closely. Lactic acid wnl On Abx. Blood pressure stable now but still on Midodrine. 5. Urinary retention, status post acute kidney injury at [facility] , renal function seems to be much better, Elder catheter in place. Monitor urine output and renal function. 6. Nutrition: Back on TPN, pharmacy to adjust today based on electrolytes this morning. 7. Sinus Tachycardia: Per report from [facility] patient has sinus tachycardia, EKG in the emergency department today reporting possible underlying A. fib. She will be admitted to telemetry close monitoring for now. Continue beta-blockers. Resolved with blood pressure much more stable. 8. Venous thromboembolism with episode of DVT, status post IVC filter 9. Mild coagulopathy: INR did not respond to FFP, mixing study pending, lupus anticoagulant pending. If patient seems to have an antibody, will have hematology weigh in to clear for pseudocyst drainage. Vitamin K to be given today. Prophylaxis: Protonix for GI prophylaxis, SCDs and status post IVC filter for DVT prophylaxis Disposition: CT guided drainage of new pseudocyst by IR if possible Appreciate GI recs and cultures pending drainage. Subjective 24 Hr Interval Summary Free Text/Dictation Patient feels better today, she is much more awake and alert. She is having minimal epigastric pain. Unfortunately her INR is still at 1.4 therefore IR has declined to do the pseudocyst drainage. We will give vitamin K today, repeat INR in a.m. Patient has declined to get the EGD, hemoglobin is stable, will continue to monitor. TPN to be adjusted today Patient also complaining of multiple loose stools Exam/Review of Systems Vital Signs Vitals Vital Signs Date Time Temp Pulse Resp B/P Pulse Ox O2 Delivery O2 Flow Rate FiO2 02/14/17 12:33 86 02/14/17 10:50 98.4 17 110/60 98 02/14/17 08:00 Nasal Cannula 4.0 02/11/17 14:10 45 Intake and Output 02/13/17 02/13/17 02/14/17 15:00 23:00 07:00 Intake Total 50 ml 630 ml 50 ml Output Total 600 ml Balance 50 ml 30 ml 50 ml Exam Constitutional: alert, frail, oriented Respiratory: diminished breath sounds (At the bases), normal air movement Cardiovascular: nl pulses, regular rate and rhythm Gastrointestinal: non-tender, soft Musculoskeletal: swelling (Lower extremity) Extremities: edema (Lower extremities bilaterally +1-2), normal pulses 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, lethargic, nl mental status, nl speech Results Result Diagram: 02/14/1757 02/14/17 0557 Results 24 hrs Laboratory Tests Test 02/14/17 05:57 White Blood Count 8.3 Red Blood Count 3.16 #L Hemoglobin 9.1 L Hematocrit 29.3 #L Mean Corpuscular Volume 92.7 Mean Corpuscular Hemoglobin 28.8 #L Mean Corpuscular Hemoglobin Concent 31.1 #L Red Cell Distribution Width 19.5 H Platelet Count 148 Mean Platelet Volume 13.3 H Neutrophils % 78.7 H Lymphocytes % 17.7 Monocytes % 2.4 Eosinophils % 0.6 Basophils % 0.2 Nucleated Red Blood Cells % 0.0 Neutrophils # 6.5 Lymphocytes # 1.5 Monocytes # 0.2 L Eosinophils # 0.1 Basophils # 0.0 Nucleated Red Blood Cells # 0.0 Prothrombin Time 17.2 H Prothrombin Time Ratio 1.3 INR International Normalized Ratio 1.40 Activated Partial Thromboplast Time 31.7 Sodium Level 157 H Potassium Level 3.7 Chloride Level 118 H Carbon Dioxide Level 31 Anion Gap 12 Blood Urea Nitrogen 30 H Creatinine 0.46 Glucose Level 117 # Calcium Level 8.9 Phosphorus Level 3.1 Magnesium Level 2.1 Total Bilirubin 1.3 Direct Bilirubin 0.30 #H Indirect Bilirubin 1.0 Aspartate Amino Transf (AST/SGOT) 41 Alanine Aminotransferase (ALT/SGPT) 39 Alkaline Phosphatase 185 H Total Protein 5.3 L Albumin 1.9 L Globulin 3.40 H Albumin/Globulin Ratio 0.55 Medications Medications Current Medications Fluconazole (Diflucan) 200 mg DAILY PO Last administered on 02/14/17 09:01; Admin Dose 200 MG; Start 02/11/17 at 10:00 Metoprolol Tartrate (Lopressor) 25 mg BID PO Last administered on 02/14/17 09: 01; Admin Dose 25 MG; Start 02/11/17 at 21:00 Midodrine (Proamatine) 5 mg TID PO Last administered on 02/14/17 13:13; Admin Dose 5 MG; Start 02/11/17 at 13:00 Pantoprazole (Protonix Tab) 40 mg DAILY PO Last administered on 02/14/17 09:02 ; Admin Dose 40 MG; Start 02/12/17 at 09:00 Ondansetron HCl (Zofran Inj) 4 mg Q6H PRN IV NAUSEA AND/OR VOMITING Last administered on 02/13/17 00:36; Admin Dose 4 MG; Start 02/11/17 at 10:00 Acetaminophen (Tylenol Tab) 650 mg Q6H PRN PO PAIN LEVEL 1-3 OR FEVER; Start at 10:00 Morphine Sulfate (morphine) 2 mg Q4H PRN IV PAIN LEVEL 7-10 Last administered on 02/13/17 09:45; Admin Dose 2 MG; Start 02/11/17 at 10:00 Docusate Sodium (Colace) 100 mg Q12H PRN PO CONSTIPATION; Start 02/11/17 at 10: 00 Bisacodyl 10 mg 10 mg DAILY PRN [place] CONSTIPATION; Start 02/11/17 at 10:00 Meropenem/Sodium Chloride (Merrem 1 Gm/50 ml (Pmx)) 50 ml @ 200 mls/hr Q12 IVPB Last administered on 02/14/17 09:01; Admin Dose 200 MLS/HR; Start at 18:00 Miscellaneous Information (Pending Santyl Order For Wound Care) This patient prado... PRN PRN XX WOUND CARE; Start 02/11/17 at 19:00 Collagenase (Santyl) 1 applic DAILY TOP Last administered on 02/14/17 08:37; Admin Dose 1 APPLIC; Start 02/12/17 at 13:30 Diphenhydramine HCl 25 mg 25 mg Q6H PRN IV ITCHING; Start 02/12/17 at 14:00 Total Parenteral Nutrition (Tpn) 1,000 ml @ 40 mls/hr Q24H IV Last administered on 02/13/17 23:55; Admin Dose 40 MLS/HR; Start 02/12/17 at 18:00 BONIFACIO COWART Feb 14, 2017 14:05
[2017-02-14] MEDS ORDERED: PHYTONADIONE 10 MG in DEXTROSE 5% 50 ML IVPB ONE (15:00)
[2017-02-14] MEDS: TPN 1,000 ML IV SCH (15:40)
[2017-02-15] VITALS (13 sets, daily range): BP systolic 121–148; BP diastolic 60–81; PULSE 85–113; RESP 16–20
[2017-02-15 06:24] LABS: ADD SCAN DIFF NO
[2017-02-15 06:53] LABS: CREATININE 0.42 mg/dl (0.44-1.00); POTASSIUM 3.8 mmol/L (3.5-5.1)
[2017-02-15 06:57] LABS: MAGNESIUM 2.1 mg/dl (1.7-2.5); PHOSPHORUS 2.8 mg/dl (2.5-4.9)
[2017-02-15 07:14] LABS: ABNORMAL IP MESSAGE 1; BASOPHILS % 0.1 % (0.0-2.0); EOSINOPHILS # 0.1 10^3/ul (0.0-0.5); EOSINOPHILS % 1.3 % (0.0-7.0); HEMATOCRIT 30.5 % (37.0-47.0); HEMOGLOBIN 8.9 g/dl (12.0-16.0); LYMPHOCYTES # 1.8 10^3/ul (0.8-2.9); LYMPHOCYTES % 21.5 % (15.0-51.0); MEAN CORPUSCULAR HEMOGLOBIN 27.3 pg (29.0-33.0); MEAN CORPUSCULAR HGB CONC 29.2 g/dl (32.0-37.0); MEAN CORPUSCULAR VOLUME 93.6 fl (82.0-101.0); MEAN PLATELET VOLUME 13.7 fl (7.4-10.4); MONOCYTE # 0.2 10^3/ul (0.3-0.9); MONOCYTES % 2.5 % (0.0-11.0); NEUTROPHIL # 6.2 10^3/ul (1.6-7.5); NEUTROPHILS % 74.1 % (39.0-77.0); PLATELET COUNT 145 10^3/UL (140-415); RED BLOOD COUNT 3.26 10^6/ul (4.20-5.40); RED CELL DISTRIBUTION WIDTH 18.9 % (11.5-14.5); WHITE BLOOD COUNT 8.3 10^3/ul (4.8-10.8)
[2017-02-15] MEDS: PANTOPRAZOLE (EC) 40 MG TAB PO SCH (09:11)
[2017-02-15] MEDS: FLUCONAZOLE 200 MG TAB PO SCH (09:11)
[2017-02-15] MEDS: MIDODRINE 5 MG TAB PO SCH ×2 (09:11→21:05)
[2017-02-15] MEDS: METOPROLOL 25 MG TAB PO SCH ×2 (09:12→21:04)
[2017-02-15] MEDS: COLLAGENASE 30 GM TUBE TOP SCH (09:12)
[2017-02-15] MEDS: MEROPENEM 1 GM/50ML(PMX) 50 ML IVPB SCH ×2 (09:24→21:03)
--- NOTE | 2017-02-15 10:56 | PN ---
Date/Time of Note Date/Time of Note DATE: 02/15/17 TIME: 10:44 Assessment/Plan VTE Prophylaxis VTE Prophylaxis Intervention: SCD's Lines/Catheters IV Catheter Type (from Nrsg): PICC Line Central line still needed: Yes (for TPN) Urinary Cath still in place: Yes Reason Cath still needed: other (indicate) (monitor UOP) Assessment/Plan Assessment/Plan 86 yo female with: 1. Acute on chronic anemia with hemoglobin of 6.6 on admission, s/p 4 units pRBC but Hb up to 9.1 and has been stable for the past 3 days. Appreciate GI consult, patient declined EGD. Appreciate recommendations of Dr Hannah, needs CT guided drainage of 2nd pseudocyst by IR but with even with FFP INR still at 1.4. PT wnl so cancel Lupus anticoagulant S/p dose of vitamin K yesterday and repeat INR pending, and additional FFP as needed. 2. Respiratory distress, in setting of pleural effusions, atelectasis, severe anemia and poor overall clinical status. PRN BiPAP for now on NC CXR slightly better. Lasix t be started since patient's BP now stable. Repeat CXR tomorrow If needed thoracentesis will be repeated. Monitor respiratory status Of note she did have bilateral thoracentesis at [facility] on her admission there last month 3. Severe pancreatitis with pseudocyst, currently on TPN and clear liquids. CAT scan of the abdomen and pelvis has been compared to the one done at [facility] approximately 3 weeks ago, cholecystostomy tube has been removed however there is concern as the patient has a new fluid collection in addition of the previous pseudocyst also previous pseudocyst seems to have increased in size and there is concern for possible infection. Discussed with Dr Hannah and plan for IR drainage of 2nd pseudocyst when INR appropriate Continue Meropenem. 4. Hypotension: Based on records patient has been actually put on midodrine 5 mg p.o. tid due to ongoing hypotension even at discharge from [place] at [place], monitoring BP and will start titrating Midodrine down to bid. On Abx. 5. Urinary retention, status post acute kidney injury at [facility] , renal function seems to be much better, Elder catheter in place. VRE in Urine Repeat UA and Urine culture and if still positive, will need to change Elder catheter. 6. Nutrition: Back on TPN, pharmacy to adjust daily based on electrolytes. 7. Sinus Tachycardia: Per report from [facility] patient has sinus tachycardia. Resolving Continue beta-blockers. 8. Venous thromboembolism with episode of DVT, status post IVC filter 9. Mild coagulopathy: PTT wnl, Vitamin K yesterday and repeat INR pending. Prophylaxis: Protonix for GI prophylaxis, SCDs and status post IVC filter for DVT prophylaxis Disposition: CT guided drainage of new pseudocyst by IR if possible Appreciate GI recs and cultures pending drainage. PT eval Subjective 24 Hr Interval Summary Free Text/Dictation Patient more hemodynamically stable and with minimal epigastric pain Loose stools reported Awaiting correction of mild coagulopathy for drainage of possibly infected pseudocyst. PT eval and on TPN Exam/Review of Systems Vital Signs Vitals Vital Signs Date Time Temp Pulse Resp B/P Pulse Ox O2 Delivery O2 Flow Rate FiO2 02/15/17 09:40 113 02/15/17 07:10 97.6 20 123/60 97 02/15/17 00:49 3.0 02/14/17 20:00 Nasal Cannula 02/11/17 14:10 45 Intake and Output 02/14/17 02/14/17 02/15/17 15:00 23:00 07:00 Intake Total 200 ml 550 ml 530 ml Output Total 500 ml 1200 ml 600 ml Balance -300 ml -650 ml -70 ml Exam Constitutional: alert, frail, oriented, other (better ) Psych: no complaints Eyes: nl conjunctiva ENMT: nl external ears & nose, nl lips & teeth, nl nasal mucosa & septum Neck: supple Respiratory: diminished breath sounds (bilateral bases), normal air movement Cardiovascular: nl pulses, regular rate and rhythm Gastrointestinal: soft, tender (minimal epigastric ) Extremities: edema (+2 edema LE bilaterally ), normal pulses Neurological: 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 intact, nl mental status, nl speech, other ( generalised weakness ) Results Result Diagram: 02/15/17 0539 02/15/17 0538 Results 24 hrs Laboratory Tests Test 02/14/17 15:25 02/15/17 05:38 02/15/17 05:39 Stool Occult Blood POSITIVE Sodium Level 153 H Potassium Level 3.8 Chloride Level 117 H Carbon Dioxide Level 29 Anion Gap 11 Blood Urea Nitrogen 30 H Creatinine 0.42 L Glucose Level 131 Calcium Level 9.0 Phosphorus Level 2.8 Magnesium Level 2.1 White Blood Count 8.3 Red Blood Count 3.26 L Hemoglobin 8.9 L Hematocrit 30.5 L Mean Corpuscular Volume 93.6 Mean Corpuscular Hemoglobin 27.3 L Mean Corpuscular Hemoglobin Concent 29.2 L Red Cell Distribution Width 18.9 H Platelet Count 145 Mean Platelet Volume 13.7 H Neutrophils % 74.1 Lymphocytes % 21.5 Monocytes % 2.5 Eosinophils % 1.3 Basophils % 0.1 Nucleated Red Blood Cells % 0.0 Neutrophils # 6.2 Lymphocytes # 1.8 Monocytes # 0.2 L Eosinophils # 0.1 Basophils # 0.0 Nucleated Red Blood Cells # 0.0 Medications Medications Current Medications Fluconazole (Diflucan) 200 mg DAILY PO Last administered on 02/15/17 09:11; Admin Dose 200 MG; Start 02/11/17 at 10:00 Metoprolol Tartrate (Lopressor) 25 mg BID PO Last administered on 02/15/17 09: 12; Admin Dose 25 MG; Start 02/11/17 at 21:00 Midodrine (Proamatine) 5 mg TID PO Last administered on 02/15/17 09:11; Admin Dose 5 MG; Start 02/11/17 at 13:00 Pantoprazole (Protonix Tab) 40 mg DAILY PO Last administered on 02/15/17 09:11 ; Admin Dose 40 MG; Start 02/12/17 at 09:00 Ondansetron HCl (Zofran Inj) 4 mg Q6H PRN IV NAUSEA AND/OR VOMITING Last administered on 02/13/17 00:36; Admin Dose 4 MG; Start 02/11/17 at 10:00 Acetaminophen (Tylenol Tab) 650 mg Q6H PRN PO PAIN LEVEL 1-3 OR FEVER; Start at 10:00 Morphine Sulfate (morphine) 2 mg Q4H PRN IV PAIN LEVEL 7-10 Last administered on 02/13/17 09:45; Admin Dose 2 MG; Start 02/11/17 at 10:00 Docusate Sodium (Colace) 100 mg Q12H PRN PO CONSTIPATION; Start 02/11/17 at 10: 00 Bisacodyl 10 mg 10 mg DAILY PRN [place] CONSTIPATION; Start 02/11/17 at 10:00 Meropenem/Sodium Chloride (Merrem 1 Gm/50 ml (Pmx)) 50 ml @ 200 mls/hr Q12 IVPB Last administered on 02/15/17 09:24; Admin Dose 200 MLS/HR; Start at 18:00 Miscellaneous Information (Pending Santyl Order For Wound Care) This patient prado... PRN PRN XX WOUND CARE; Start 02/11/17 at 19:00 Collagenase (Santyl) 1 applic DAILY TOP Last administered on 02/15/17 09:12; Admin Dose 1 APPLIC; Start 02/12/17 at 13:30 Diphenhydramine HCl 25 mg 25 mg Q6H PRN IV ITCHING; Start 02/12/17 at 14:00 Total Parenteral Nutrition (Tpn) 1,000 ml @ 40 mls/hr Q24H IV Last administered on 02/14/17 15:40; Admin Dose 40 MLS/HR; Start 02/12/17 at 18:00 BONIFACIO COWART Feb 15, 2017 10:55
[2017-02-15] MEDS ORDERED: FUROSEMIDE 20 MG INJ IV ONE (11:00)
--- NOTE | 2017-02-15 12:12 | PN ---
Date/Time of Note Date/Time of Note DATE: 02/15/17 TIME: 12:09 Assessment/Plan VTE Prophylaxis VTE Prophylaxis Intervention: SCD's Lines/Catheters IV [facility]atheter Type (from [facility]): PICC Line Central line still needed: Yes Urinary Cath still in place: Yes Reason Cath still needed: urinary retention Assessment/Plan Assessment/Plan Assessment * Anemia * Refused EGD * Pancreatitis with Pancreatic pseudocyst/awaiting drainage * Coagulopathy * H/O tube cholecystostomy * H/O ERCP removal of stone with biliary stent * Respiratory failure improved Plan * Continue present regimen * Surgical management of pseudocyst * IR drainage once granulation permits * monitor hemoglobin and hematocrit daily and transfuse per protocol Vital Signs Date Time Temp Pulse Resp B/P Pulse Ox O2 Delivery O2 Flow Rate FiO2 02/14/17 10:50 98.4 94 17 110/60 98 02/14/17 04:27 3.0 02/13/17 20:20 Nasal Cannula 02/11/17 14:10 45 Intake and Output 02/13/17 02/13/17 02/14/17 15:00 23:00 07:00 Intake Total 50 ml 630 ml 50 ml Output Total 600 ml Balance 50 ml 30 ml 50 ml Exam Subjective 24 Hr Interval Summary Free Text/Dictation Course reviewed with nursing staff c/o abdominal distention and less pain H/H stable, no evidence of overt GI bleeding Awaiting IR intervention Exam/Review of Systems Vital Signs Vitals Vital Signs Date Time Temp Pulse Resp B/P Pulse Ox O2 Delivery O2 Flow Rate FiO2 02/15/17 10:59 97.2 71 18 123/73 97 02/15/17 00:49 3.0 02/14/17 20:00 Nasal Cannula 02/11/17 14:10 45 Intake and Output 02/14/17 02/14/17 02/15/17 15:00 23:00 07:00 Intake Total 200 ml 550 ml 530 ml Output Total 500 ml 1200 ml 600 ml Balance -300 ml -650 ml -70 ml Exam Constitutional: alert, oriented, well developed Head: atraumatic, normocephalic Eyes: EOMI, PERRL, nl conjunctiva, nl lids, nl sclera ENMT: nl external ears & nose, nl lips & teeth, nl nasal mucosa & septum Neck: non-tender, supple Respiratory: clear to auscultation, normal air movement Cardiovascular: nl pulses, regular rate and rhythm Gastrointestinal: bowel sounds, distended, firm, tender (less diffusely tender) , No rebound or guarding Musculoskeletal: nl extremities to inspection Extremities: normal pulses Skin: nl turgor, No rash or lesions Lymph: nl lymph nodes Results Result Diagram: 02/15/17 0539 02/15/17 0538 Results 24 hrs Laboratory Tests Test 02/14/17 15:25 02/15/17 05:38 02/15/17 05:39 Stool Occult Blood POSITIVE Sodium Level 153 H Potassium Level 3.8 Chloride Level 117 H Carbon Dioxide Level 29 Anion Gap 11 Blood Urea Nitrogen 30 H Creatinine 0.42 L Glucose Level 131 Calcium Level 9.0 Phosphorus Level 2.8 Magnesium Level 2.1 White Blood Count 8.3 Red Blood Count 3.26 L Hemoglobin 8.9 L Hematocrit 30.5 L Mean Corpuscular Volume 93.6 Mean Corpuscular Hemoglobin 27.3 L Mean Corpuscular Hemoglobin Concent 29.2 L Red Cell Distribution Width 18.9 H Platelet Count 145 Mean Platelet Volume 13.7 H Neutrophils % 74.1 Lymphocytes % 21.5 Monocytes % 2.5 Eosinophils % 1.3 Basophils % 0.1 Nucleated Red Blood Cells % 0.0 Neutrophils # 6.2 Lymphocytes # 1.8 Monocytes # 0.2 L Eosinophils # 0.1 Basophils # 0.0 Nucleated Red Blood Cells # 0.0 Medications Medications Current Medications Fluconazole (Diflucan) 200 mg DAILY PO Last administered on 02/15/17 09:11; Admin Dose 200 MG; Start 02/11/17 at 10:00 Metoprolol Tartrate (Lopressor) 25 mg BID PO Last administered on 02/15/17 09: 12; Admin Dose 25 MG; Start 02/11/17 at 21:00 Pantoprazole (Protonix Tab) 40 mg DAILY PO Last administered on 02/15/17 09:11 ; Admin Dose 40 MG; Start 02/12/17 at 09:00 Ondansetron HCl (Zofran Inj) 4 mg Q6H PRN IV NAUSEA AND/OR VOMITING Last administered on 02/13/17 00:36; Admin Dose 4 MG; Start 02/11/17 at 10:00 Acetaminophen (Tylenol Tab) 650 mg Q6H PRN PO PAIN LEVEL 1-3 OR FEVER; Start at 10:00 Morphine Sulfate (morphine) 2 mg Q4H PRN IV PAIN LEVEL 7-10 Last administered on 02/13/17 09:45; Admin Dose 2 MG; Start 02/11/17 at 10:00 Docusate Sodium (Colace) 100 mg Q12H PRN PO CONSTIPATION; Start 02/11/17 at 10: 00 Bisacodyl 10 mg 10 mg DAILY PRN [place] CONSTIPATION; Start 02/11/17 at 10:00 Meropenem/Sodium Chloride (Merrem 1 Gm/50 ml (Pmx)) 50 ml @ 200 mls/hr Q12 IVPB Last administered on 02/15/17 09:24; Admin Dose 200 MLS/HR; Start at 18:00 Miscellaneous Information (Pending Santyl Order For Wound Care) This patient prado... PRN PRN XX WOUND CARE; Start 02/11/17 at 19:00 Collagenase (Santyl) 1 applic DAILY TOP Last administered on 02/15/17 09:12; Admin Dose 1 APPLIC; Start 02/12/17 at 13:30 Diphenhydramine HCl 25 mg 25 mg Q6H PRN IV ITCHING; Start 02/12/17 at 14:00 Total Parenteral Nutrition (Tpn) 1,000 ml @ 40 mls/hr Q24H IV Last administered on 02/14/17 15:40; Admin Dose 40 MLS/HR; Start 02/12/17 at 18:00 Midodrine (Proamatine) 5 mg BID PO ; Start 02/15/17 at 21:00 Mupirocin (Bactroban) 1 applic BID TOP ; Start 02/15/17 at 21:00 AMBER NUR MD Feb 15, 2017 12:12
--- NOTE | 2017-02-15 12:23 | PN ---
Date/Time of Note Date/Time of Note DATE: 02/15/17 TIME: 12:21 Assessment/Plan Lines/Catheters IV Catheter Type (from [facility]): PICC Line Elder in Place (from [facility]): Yes Assessment/Plan Chief Complaint/Hosp Course The patient is an 86-year-old female who is known to me from laparoscopic lysis of adhesions with release of small bowel obstruction earlier this year. Approximately 2 months ago the patient was admitted to [facility] with cholecystitis and choledocholithiasis. She underwent an ERCP with successful stone extraction and placement of stent. The patient was too frail for cholecystectomy, so cholecystostomy was performed. Several weeks later cholangiogram through cholecystostomy showed a patent cystic duct and the cholecystostomy catheter was removed. In the interim the patient developed a pseudocyst. She had a very complex hospitalization with multiple medical issues , but was ultimately able to be discharged to a alf facility with TPN. She was admitted yesterday because of shortness of breath, tachycardia and hypotension. She was found to be anemic with a hemoglobin of 6.6. Imaging studies showed enlargement of pseudocyst with possible development of a second pseudocyst in the body and tail of the pancreas. The patient was admitted and surgical consultation was requested in that regard. Problems: Subjective 24 Hr Interval Summary Constitutional: no complaints Detailed Summary Free Text/Dictation Patient is clinically stable and is currently asymptomatic. Surgery for the pseudocyst will need to be done approximately 4 weeks from now as the cyst wall is not mature for surgery yet One thing to consider is the possibility of an endoscopic cyst gastrostomy performed by GI Recommend: Continue medical management The patient strongly wants to go home, and can be managed with home health and home TPN Exam/Review of Systems Vital Signs Vitals Vital Signs Date Time Temp Pulse Resp B/P Pulse Ox O2 Delivery O2 Flow Rate FiO2 02/15/17 10:59 97.2 71 18 123/73 97 02/15/17 00:49 3.0 02/14/17 20:00 Nasal Cannula 02/11/17 14:10 45 Intake and Output 02/14/17 02/14/17 02/15/17 15:00 23:00 07:00 Intake Total 200 ml 550 ml 530 ml Output Total 500 ml 1200 ml 600 ml Balance -300 ml -650 ml -70 ml Results Result Diagram: 02/15/17 0539 02/15/17 0538 STEPHANIE BRADY MD Feb 15, 2017 12:23
[2017-02-15 13:44] LABS: ADD UMIC YES; UR ASCORBIC ACID NEGATIVE (NEGATIVE); UR BILIRUBIN (Dip) NEGATIVE (NEGATIVE); UR BLOOD (Dip) 1+ mg/dL (NEGATIVE); UR CLARITY CLEAR (CLEAR); UR COLOR AMBER (YELLOW); UR GLUCOSE (Dip) NEGATIVE (NEGATIVE); UR KETONES (Dip) NEGATIVE (NEGATIVE); UR LEUKOCYTE ESTERASE (Dip) NEGATIVE Leu/ul (NEGATIVE); UR NITRITE (Dip) NEGATIVE (NEGATIVE); UR RBC 4 /HPF (0-5); UR SPECIFIC GRAVITY (Dip) 1.024 (1.003-1.030); UR TOTAL PROTEIN (Dip) 1+ mg/dl (NEGATIVE); UR UROBILINOGEN (Dip) 1+ mg/dL (NEGATIVE)
[2017-02-15 13:45] LABS: INR 1.34; PARTIAL THROMBOPLASTIN TIME 30.1 Sec (25.0-35.0); PROTIME 16.7 Sec (12.2-14.2); PT RATIO 1.3
[2017-02-15] MEDS: TPN 1,000 ML IV SCH (17:44)
[2017-02-15] MEDS: MUPIROCIN 2% 22 GM OINT TOP SCH (21:03)
[2017-02-16] VITALS (13 sets, daily range): BP systolic 98–135; BP diastolic 56–72; PULSE 80–108; RESP 15–20
[2017-02-16 05:58] LABS: ADD SCAN DIFF NO
[2017-02-16 06:02] LABS: ABNORMAL IP MESSAGE 1; HEMOGLOBIN 8.2 g/dl (12.0-16.0); MEAN PLATELET VOLUME 13.6 fl (7.4-10.4); PLATELET COUNT 150 10^3/UL (140-415); RED CELL DISTRIBUTION WIDTH 24.7 % (11.5-14.5); WHITE BLOOD COUNT 7.8 10^3/ul (4.8-10.8)
[2017-02-16 06:43] LABS: MAGNESIUM 1.9 mg/dl (1.7-2.5)
[2017-02-16 06:48] LABS: CALCIUM 8.7 mg/dl (8.4-10.2); CREATININE 0.47 mg/dl (0.44-1.00); POTASSIUM 3.4 mmol/L (3.5-5.1)
[2017-02-16 07:12] LABS: RED BLOOD COUNT 2.99 10^6/ul (4.20-5.40)
[2017-02-16 07:13] LABS: MEAN CORPUSCULAR HEMOGLOBIN 27.8 pg (29.0-33.0); MEAN CORPUSCULAR VOLUME 93.6 fl (82.0-101.0)
[2017-02-16 07:14] LABS: MEAN CORPUSCULAR HGB CONC 29.6 g/dl (32.0-37.0)
[2017-02-16] MEDS: MEROPENEM 1 GM/50ML(PMX) 50 ML IVPB SCH ×2 (08:46→21:32)
[2017-02-16] MEDS: FLUCONAZOLE 200 MG TAB PO SCH (08:46)
[2017-02-16] MEDS: PANTOPRAZOLE (EC) 40 MG TAB PO SCH (08:46)
[2017-02-16] MEDS: COLLAGENASE 30 GM TUBE TOP SCH (08:47)
[2017-02-16] MEDS: METOPROLOL 25 MG TAB PO SCH ×2 (08:48→21:32)
[2017-02-16] MEDS: MIDODRINE 5 MG TAB PO SCH ×2 (08:48→21:32)
[2017-02-16] MEDS: MUPIROCIN 2% 22 GM OINT TOP SCH ×2 (08:53→21:34)
[2017-02-16 10:01] LABS: EOSINOPHILS # 0.1 10^3/ul (0.0-0.5); HYPOCHROMASIA 1+; LYMPHOCYTES # 1.1 10^3/ul (0.8-2.9); MONOCYTE # 0.2 10^3/ul (0.3-0.9); NEUTROPHIL # 6.4 10^3/ul (1.6-7.5)
[2017-02-16 10:02] LABS: OVALOCYTES 1+
[2017-02-16 10:34] LABS: INR 1.29; PROTIME 16.2 Sec (12.2-14.2); PT RATIO 1.3
[2017-02-16 10:35] LABS: PARTIAL THROMBOPLASTIN TIME 29.3 Sec (25.0-35.0)
[2017-02-16] MEDS ORDERED: FUROSEMIDE 40 MG INJ IV ONE (12:00)
[2017-02-16] MEDS ORDERED: MAGNESIUM SULFATE 1 GM/D5W 100 ML IVPB ONE (12:00)
[2017-02-16] MEDS ORDERED: POTASSIUM CHLORIDE 20 MEQ POWDER FOR ORAL SOLN PO ONE (12:00)
--- NOTE | 2017-02-16 12:15 | PN ---
Date/Time of Note Date/Time of Note DATE: 02/16/17 TIME: 11:52 Assessment/Plan VTE Prophylaxis VTE Prophylaxis Intervention: SCD's, other (s/p IVC filter ) Lines/Catheters IV Catheter Type (from Nrs): PICC Line Central line still needed: Yes (For TPN and IV access) Urinary Cath still in place: Yes Reason Cath still needed: other (indicate) (Monitor urine output, diuresis) Assessment/Plan Assessment/Plan 86 yo female with: 1. Acute on chronic anemia with hemoglobin of 6.6 on admission, s/p 4 units pRBC but Hb up to 9.1 and has been stable more or less stable for the past few days. Appreciate GI consult, patient and her son declined EGD. Appreciate recommendations of Dr Hannah, May still needs CT guided drainage of 2nd pseudocyst by IR, I will discuss with IR, INR 1.2 today. S/p dose of vitamin K x 1, additional FFP as needed. 2. Respiratory distress, in setting of pleural effusions, atelectasis, severe anemia and poor overall clinical status. PRN BiPAP for now on NC CXR slightly better. Lasix today, since patient's BP now better/stable. Repeat CXR today pending If needed thoracentesis will be repeated. Monitor respiratory status Of note she did have bilateral thoracentesis at [facility] on her admission there last month 3. Severe pancreatitis with pseudocyst, currently on TPN and clear liquids. CAT scan of the abdomen and pelvis has been compared to the one done at [facility] approximately 3 weeks ago, cholecystostomy tube has been removed however there is concern as the patient has a new fluid collection in addition of the previous pseudocyst also previous pseudocyst seems to have increased in size and there is concern for possible infection. Will discuss with IR re drainage of 2nd pseudocyst, INR 1.2 today Continue Meropenem for now. 4. Hypotension: Based on records patient has been actually put on midodrine 5 mg p.o. tid due to ongoing hypotension even at discharge from [place] [facility], Much more stable BP while titrating Midodrine down to. Continue Abx. 5. Urinary retention, status post acute kidney injury at [facility] , renal function seems to be much better, Elder catheter in place. Repeat UA wnl, repeat Urine cx pending Change Elder catheter. 6. Hypernatremia, Nutrition: TPN to be adjusted per pharmacy to adjust daily based on electrolytes. Repleting K today 7. Sinus Tachycardia: Per report from [facility] patient has sinus tachycardia. Resolving Continue beta-blockers. 8. Venous thromboembolism with episode of DVT, status post IVC filter 9. Mild coagulopathy: PTT wnl, Vitamin K yesterday and INR better today. Prophylaxis: Protonix for GI prophylaxis, SCDs and status post IVC filter for DVT prophylaxis Disposition: CT guided drainage of new pseudocyst by IR if possible or still needed Appreciate GI recs and cultures pending drainage. PT re-eval Subjective 24 Hr Interval Summary Free Text/Dictation Patient seems to be more stable and awake however she is also confused and disoriented that time. Her sodium level has been fluctuating sodium is at 155 today, electrolytes are being adjusted through TPN. Afebrile, white blood cell count better, hemoglobin more or less stable, anasarca slightly improved INR down to 1.2, IR to reevaluate regarding timing of drainage of second pseudocyst is still needed director of radio services to be consulted as this patient will be a difficult placement due to family dynamic Exam/Review of Systems Vital Signs Vitals Vital Signs Date Time Temp Pulse Resp B/P Pulse Ox O2 Delivery O2 Flow Rate FiO2 02/16/17 11:39 97.5 82 20 121/70 99 02/16/17 08:25 4.0 02/15/17 20:00 Nasal Cannula Intake and Output 02/15/17 02/15/17 02/16/17 15:00 23:00 07:00 Intake Total 50 ml 650 ml 240 ml Output Total 1500 ml 700 ml Balance 50 ml -850 ml -460 ml Exam Constitutional: alert, frail, oriented (x2) Respiratory: diminished breath sounds (bases ), other (dyspnea with speech ) Cardiovascular: nl pulses, regular rate and rhythm (occasionnal sinus tachy ) Gastrointestinal: soft, tender (mild epigastric ) Musculoskeletal: swelling (Improved anasarca) Extremities: edema (Bilateral lower extremity edema +2 improved), normal pulses , pitting pedal edema Neurological: [employer] II-XII intact, confused (Slightly disoriented), lethargic, other (Dyspnea with speech) Results Result Diagram: 02/16/17 0520 02/16/17 0520 Results 24 hrs Laboratory Tests Test 02/15/17 12:45 02/16/17 05:20 02/16/17 09:55 Prothrombin Time 16.7 H 16.2 H Prothrombin Time Ratio 1.3 1.3 INR International Normalized Ratio 1.34 1.29 Activated Partial Thromboplast Time 30.1 29.3 White Blood Count 7.8 Red Blood Count 2.99 L Hemoglobin 8.2 L Hematocrit 28.0 L Mean Corpuscular Volume 93.6 Mean Corpuscular Hemoglobin 27.8 L Mean Corpuscular Hemoglobin Concent 29.6 L Red Cell Distribution Width 24.7 #H Platelet Count 150 Mean Platelet Volume 13.6 H Neutrophils % 82.0 H Band Neutrophils % 1.0 Lymphocytes % 14.0 L Monocytes % 2.0 Eosinophils % 1.0 Neutrophils # 6.4 Lymphocytes # 1.1 Monocytes # 0.2 L Eosinophils # 0.1 Hypochromasia 1+ Ovalocytes 1+ Sodium Level 155 H Potassium Level 3.4 L Chloride Level 118 H Carbon Dioxide Level 29 Anion Gap 11 Blood Urea Nitrogen 34 H Creatinine 0.47 Glucose Level 112 Calcium Level 8.7 Phosphorus Level 3.0 Magnesium Level 1.9 Medications Medications Current Medications Fluconazole (Diflucan) 200 mg DAILY PO Last administered on 02/16/17 08:46; Admin Dose 200 MG; Start 02/11/17 at 10:00 Metoprolol Tartrate (Lopressor) 25 mg BID PO Last administered on 02/16/17 08: 48; Admin Dose 25 MG; Start 02/11/17 at 21:00 Pantoprazole (Protonix Tab) 40 mg DAILY PO Last administered on 02/16/17 08:46 ; Admin Dose 40 MG; Start 02/12/17 at 09:00 Ondansetron HCl (Zofran Inj) 4 mg Q6H PRN IV NAUSEA AND/OR VOMITING Last administered on 02/13/17 00:36; Admin Dose 4 MG; Start 02/11/17 at 10:00 Acetaminophen (Tylenol Tab) 650 mg Q6H PRN PO PAIN LEVEL 1-3 OR FEVER; Start at 10:00 Morphine Sulfate (morphine) 2 mg Q4H PRN IV PAIN LEVEL 7-10 Last administered on 02/13/17 09:45; Admin Dose 2 MG; Start 02/11/17 at 10:00 Docusate Sodium (Colace) 100 mg Q12H PRN PO CONSTIPATION; Start 02/11/17 at 10: 00 Bisacodyl 10 mg 10 mg DAILY PRN [place] CONSTIPATION; Start 02/11/17 at 10:00 Meropenem/Sodium Chloride (Merrem 1 Gm/50 ml (Pmx)) 50 ml @ 200 mls/hr Q12 IVPB Last administered on 02/16/17 08:46; Admin Dose 200 MLS/HR; Start at 18:00 Miscellaneous Information (Pending Santyl Order For Wound Care) This patient prado... PRN PRN XX WOUND CARE; Start 02/11/17 at 19:00 Collagenase (Santyl) 1 applic DAILY TOP Last administered on 02/16/17 08:47; Admin Dose 1 APPLIC; Start 02/12/17 at 13:30 Diphenhydramine HCl 25 mg 25 mg Q6H PRN IV ITCHING; Start 02/12/17 at 14:00 Total Parenteral Nutrition (Tpn) 1,000 ml @ 40 mls/hr Q24H IV Last administered on 02/15/17 17:44; Admin Dose 40 MLS/HR; Start 02/12/17 at 18:00 Midodrine (Proamatine) 5 mg BID PO Last administered on 02/16/17 08:48; Admin Dose 5 MG; Start 02/15/17 at 21:00 Mupirocin (Bactroban) 1 applic BID TOP Last administered on 02/16/17 08:53; Admin Dose 1 APPLIC; Start 02/15/17 at 21:00 Potassium Chloride (Potassium Chloride Pwd/Soln) 40 meq ONCE ONCE PO ; Start at 12:00; Stop 02/16/17 at 12:01 Furosemide 40 mg 40 mg ONCE ONCE IV ; Start 02/16/17 at 12:00; Stop 02/16/17 at 12:01 Magnesium Sulfate/ Dextrose (Magnesium Sulfate 1 Gm/D5W) 100 ml @ 100 mls/hr ONCE ONCE IVPB ; Start 02/16/17 at 12:00; Stop 02/16/17 at 12:59 BONIFACIO COWART Feb 16, 2017 12:05
[2017-02-16] MEDS: ALBUTEROL/IPRATROPIUM (NEB) 3 ML AMP HHN PRN ×2 (13:59→19:29)
--- NOTE | 2017-02-16 15:47 | RADRPT ---
PROCEDURE: XR Chest. CLINICAL INDICATION: Shortness of breath. TECHNIQUE: Single frontal view. COMPARISON: 02/12/2017 FINDINGS: There is air space disease bilaterally in the mid and lower lung zones consistent with pulmonary kiersten ma or bilateral pneumonia. There is a right arm PICC line with the tip in the superior vena cava. The heart is enlarged. There is calcification in the aorta consistent with atherosclerosis. There are small bilateral pleural effusions. There is no pneumothorax. IMPRESSION: 1. Slightly worse appearance of the lungs when compared with 02/12/2017. 2. No other change. RPTAT: QQ .Joel Diamond MD, MD Date Time Electronically viewed and signed by .Joel Diamond MD, MD on 02/16/2017 15:46 .R/
--- NOTE | 2017-02-16 18:01 | PN ---
Date/Time of Note Date/Time of Note DATE: 02/16/17 TIME: 17:56 Assessment/Plan VTE Prophylaxis VTE Prophylaxis Intervention: SCD's Lines/Catheters IV Catheter Type (from Nrs): PICC Line Central line still needed: Yes Urinary Cath still in place: Yes Reason Cath still needed: urinary retention Assessment/Plan Assessment/Plan Assessment * Anemia * Refused EGD * Pancreatitis with Pancreatic pseudocyst/awaiting drainage * Coagulopathy * H/O tube cholecystostomy * H/O ERCP removal of stone with biliary stent * Respiratory failure improved Plan * Continue present regimen * Surgical management of pseudocyst * Endoscopic attempts at cystogastrostomy would require tertiary facility * IR drainage once coagulation permits * monitor hemoglobin and hematocrit daily and transfuse per protocol Subjective 24 Hr Interval Summary Free Text/Dictation Course reviewed with nursing staff c/o abdominal distention and less pain H/H stable, no evidence of overt GI bleeding Awaiting IR intervention once coagulopathy corrected Surgery will have to be deferred The option of endoscopic drainage would require tertiary center transfer Exam/Review of Systems Vital Signs Vitals Vital Signs Date Time Temp Pulse Resp B/P Pulse Ox O2 Delivery O2 Flow Rate FiO2 02/16/17 16:12 87 02/16/17 15:30 98.0 18 118/72 99 02/16/17 14:01 Nasal Cannula 4.0 Intake and Output 02/15/17 02/15/17 02/16/17 15:00 23:00 07:00 Intake Total 50 ml 650 ml 240 ml Output Total 1500 ml 700 ml Balance 50 ml -850 ml -460 ml Exam Constitutional: alert, oriented, well developed Head: atraumatic, normocephalic Eyes: EOMI, PERRL, nl conjunctiva, nl lids, nl sclera ENMT: nl external ears & nose, nl lips & teeth, nl nasal mucosa & septum Neck: non-tender, supple Respiratory: clear to auscultation, normal air movement Cardiovascular: nl pulses, regular rate and rhythm Gastrointestinal: bowel sounds, distended, firm, tender (less diffusely tender) , No rebound or guarding Musculoskeletal: nl extremities to inspection Extremities: normal pulses Skin: nl turgor, No rash or lesions Lymph: nl lymph nodes Results Result Diagram: 02/16/17 0520 02/16/17 0520 Results 24 hrs Laboratory Tests Test 02/16/17 05:20 02/16/17 09:55 White Blood Count 7.8 Red Blood Count 2.99 L Hemoglobin 8.2 L Hematocrit 28.0 L Mean Corpuscular Volume 93.6 Mean Corpuscular Hemoglobin 27.8 L Mean Corpuscular Hemoglobin Concent 29.6 L Red Cell Distribution Width 24.7 #H Platelet Count 150 Mean Platelet Volume 13.6 H Neutrophils % 82.0 H Band Neutrophils % 1.0 Lymphocytes % 14.0 L Monocytes % 2.0 Eosinophils % 1.0 Neutrophils # 6.4 Lymphocytes # 1.1 Monocytes # 0.2 L Eosinophils # 0.1 Hypochromasia 1+ Ovalocytes 1+ Sodium Level 155 H Potassium Level 3.4 L Chloride Level 118 H Carbon Dioxide Level 29 Anion Gap 11 Blood Urea Nitrogen 34 H Creatinine 0.47 Glucose Level 112 Calcium Level 8.7 Phosphorus Level 3.0 Magnesium Level 1.9 Prothrombin Time 16.2 H Prothrombin Time Ratio 1.3 INR International Normalized Ratio 1.29 Activated Partial Thromboplast Time 29.3 Medications Medications Current Medications Fluconazole (Diflucan) 200 mg DAILY PO Last administered on 02/16/17 08:46; Admin Dose 200 MG; Start 02/11/17 at 10:00 Metoprolol Tartrate (Lopressor) 25 mg BID PO Last administered on 02/16/17 08: 48; Admin Dose 25 MG; Start 02/11/17 at 21:00 Pantoprazole (Protonix Tab) 40 mg DAILY PO Last administered on 02/16/17 08:46 ; Admin Dose 40 MG; Start 02/12/17 at 09:00 Ondansetron HCl (Zofran Inj) 4 mg Q6H PRN IV NAUSEA AND/OR VOMITING Last administered on 02/13/17 00:36; Admin Dose 4 MG; Start 02/11/17 at 10:00 Acetaminophen (Tylenol Tab) 650 mg Q6H PRN PO PAIN LEVEL 1-3 OR FEVER; Start at 10:00 Morphine Sulfate (morphine) 2 mg Q4H PRN IV PAIN LEVEL 7-10 Last administered on 02/13/17 09:45; Admin Dose 2 MG; Start 02/11/17 at 10:00 Docusate Sodium (Colace) 100 mg Q12H PRN PO CONSTIPATION; Start 02/11/17 at 10: 00 Bisacodyl 10 mg 10 mg DAILY PRN [place] CONSTIPATION; Start 02/11/17 at 10:00 Meropenem/Sodium Chloride (Merrem 1 Gm/50 ml (Pmx)) 50 ml @ 200 mls/hr Q12 IVPB Last administered on 02/16/17 08:46; Admin Dose 200 MLS/HR; Start at 18:00 Miscellaneous Information (Pending Santyl Order For Wound Care) This patient prado... PRN PRN XX WOUND CARE; Start 02/11/17 at 19:00 Collagenase (Santyl) 1 applic DAILY TOP Last administered on 02/16/17 08:47; Admin Dose 1 APPLIC; Start 02/12/17 at 13:30 Diphenhydramine HCl 25 mg 25 mg Q6H PRN IV ITCHING; Start 02/12/17 at 14:00 Total Parenteral Nutrition (Tpn) 1,000 ml @ 40 mls/hr Q24H IV Last administered on 02/15/17 17:44; Admin Dose 40 MLS/HR; Start 02/12/17 at 18:00 Midodrine (Proamatine) 5 mg BID PO Last administered on 02/16/17 08:48; Admin Dose 5 MG; Start 02/15/17 at 21:00 Mupirocin (Bactroban) 1 applic BID TOP Last administered on 02/16/17 08:53; Admin Dose 1 APPLIC; Start 02/15/17 at 21:00 AMBER NUR MD Feb 16, 2017 18:01
[2017-02-16] MEDS: TPN 1,000 ML IV SCH (18:58)
[2017-02-17] VITALS (18 sets, daily range): BP systolic 88–133; BP diastolic 52–86; PULSE 75–94; RESP 16–24
[2017-02-17] MEDS: ALBUTEROL/IPRATROPIUM (NEB) 3 ML AMP HHN PRN ×2 (01:46→13:54)
[2017-02-17 07:50] LABS: CALCIUM 9.1 mg/dl (8.4-10.2); CREATININE 0.43 mg/dl (0.44-1.00); MAGNESIUM 2.1 mg/dl (1.7-2.5); PHOSPHORUS 3.6 mg/dl (2.5-4.9); POTASSIUM 3.4 mmol/L (3.5-5.1)
[2017-02-17] MEDS: PANTOPRAZOLE (EC) 40 MG TAB PO SCH (09:00)
[2017-02-17] MEDS: FLUCONAZOLE 200 MG TAB PO SCH (09:00)
[2017-02-17] MEDS: METOPROLOL 25 MG TAB PO SCH ×2 (09:00→21:04)
[2017-02-17] MEDS: MEROPENEM 1 GM/50ML(PMX) 50 ML IVPB SCH ×2 (09:28→21:04)
[2017-02-17] MEDS ORDERED: POTASSIUM CHLORIDE 20 MEQ POWDER FOR ORAL SOLN PO ONE (09:30)
[2017-02-17] MEDS ORDERED: FUROSEMIDE 20 MG INJ IV ONE ×2 (09:30→14:30)
[2017-02-17] MEDS: MIDODRINE 5 MG TAB PO SCH ×2 (09:35→21:03)
[2017-02-17] MEDS: COLLAGENASE 30 GM TUBE TOP SCH (09:36)
[2017-02-17] MEDS: MUPIROCIN 2% 22 GM OINT TOP SCH ×2 (09:38→21:04)
[2017-02-17] MEDS ORDERED: PHYTONADIONE 10 MG in DEXTROSE 5% 50 ML IVPB ONE (11:00)
[2017-02-17] MEDS ORDERED: POTASSIUM CHLORIDE 250 ML IVPB ONE (11:00)
--- NOTE | 2017-02-17 11:41 | PN ---
Date/Time of Note Date/Time of Note DATE: 02/17/17 TIME: 11:30 Assessment/Plan VTE Prophylaxis VTE Prophylaxis Intervention: SCD's, other (Status post IVC filter) Lines/Catheters IV Catheter Type (from Nrs): PICC Line Central line still needed: Yes (For TPN and IV access) Urinary Cath still in place: Yes Reason Cath still needed: other (indicate) (Bedridden) Assessment/Plan Assessment/Plan 86 yo female with: 1. Acute on chronic anemia with hemoglobin of 6.6 on admission, s/p 4 units pRBC but Hb trending down slowly down to 8.2 today, no signs of acute bleeding however patient does have positive fecal occult blood. Appreciate GI consult, patient and her son declined EGD. Appreciate recommendations of Dr Hannah, may still needs CT guided drainage of 2nd pseudocyst by IR, patient currently n.p.o. and awaiting repeat INR today. Will give second dose of vitamin K today, S/p dose of vitamin K x 1, additional FFP as needed. 2. Respiratory distress, in setting of pleural effusions, atelectasis, severe anemia and poor overall clinical status. PRN BiPAP for now on NC CXR slightly better. Lasix today if blood pressure tolerates. Continue nebulizer treatment. If needed thoracentesis will be repeated. Monitor respiratory status Of note she did have bilateral thoracentesis at [facility] on her admission there last month 3. Severe pancreatitis with pseudocyst, currently on TPN and clear liquids. CAT scan of the abdomen and pelvis has been compared to the one done at [facility] approximately 3 weeks ago, cholecystostomy tube has been removed however there is concern as the patient has a new fluid collection in addition of the previous pseudocyst also previous pseudocyst seems to have increased in size and there is concern for possible infection. Awaiting repeat INR today, patient n.p.o. for possible drainage of 2nd pseudocyst. Continue Meropenem for now. 4. Hypotension: Based on records patient has been actually put on midodrine 5 mg p.o. tid due to ongoing hypotension even at discharge from [place] [facility] [place], Much more stable BP while titrating Midodrine down to twice daily current. Continue Abx. 5. Urinary retention, status post acute kidney injury at [facility] , renal function seems to be much better, Elder catheter in place. Repeat UA wnl, repeat Urine cx negative. 6. Hypernatremia, Nutrition: Slowly improving with TPN adjustments TPN to be adjusted per pharmacy to adjust daily based on electrolytes. Repleting K today again. 7. Sinus Tachycardia: Per report from [facility] patient has sinus tachycardia. Resolving Continue beta-blockers as tolerated. 8. Venous thromboembolism with episode of DVT, status post IVC filter 9. Mild coagulopathy: PTT wnl, Vitamin K to be given again today, repeat INR pending today. Prophylaxis: Protonix for GI prophylaxis, SCDs and status post IVC filter for DVT prophylaxis Disposition: CT guided drainage of new pseudocyst by IR if possible or still needed Appreciate GI recs and cultures pending drainage. PT re-eval. I already discussed with the daughter at bedside yesterday that our recommendation will be to discharge to SNF at the time of discharge as the patient will need rehabilitation and TPN likely. customer technical services manager had a discussion with the patient's son who claims to be DPOA. He seems to indicate that he absolutely challenge discharge and refuse [facility] facility placement as he wants the patient to go home. I have concerns regarding the son's DPOA status. Apparently he had it signed this past weekend while the patient was inpatient and definitely not mentally sound enough to make decisions, the son himself based on discussion I had with him before does not seem to be adequate to make important medical decisions as his reasoning was mostly paranoid at times. I will ask him to come to the hospital at the bedside for medical update and any further discussion regarding the patient's care. Subjective 24 Hr Interval Summary Free Text/Dictation Patient awake alert however on and off disoriented She will need a sitter while family not at bedside On clear liquids and TPN however n.p.o. today for possible attempt at draining second intra-abdominal fluid collection White count within normal, vital signs fairly stable, electrolytes being corrected through TPN Exam/Review of Systems Vital Signs Vitals Vital Signs Date Time Temp Pulse Resp B/P Pulse Ox O2 Delivery O2 Flow Rate FiO2 02/17/17 11:24 98.2 80 18 107/52 91 02/17/17 01:48 Nasal Cannula 4.0 02/16/17 19:45 45 Intake and Output 702/16/17 02/17/17 15:00 23:00 07:00 Intake Total 50 ml 440 ml Output Total 1500 ml 800 ml Balance -1450 ml -360 ml Exam Constitutional: alert, frail, oriented (1-2) Respiratory: diminished breath sounds (Bases bilaterally), normal air movement Cardiovascular: nl pulses, regular rate and rhythm Gastrointestinal: soft, tender (Minimal epigastric tenderness to palpation) Musculoskeletal: swelling (Much improved anasarca) Extremities: normal pulses, pitting pedal edema (Significantly decreased down to +1) Neurological: SENIOR POLICY ANALYST II-XII intact, nl mental status, nl speech (But limited by dyspnea), other (Generalized weakness) Results Result Diagram: 02/16/17 0520 02/17/17 0615 Results 24 hrs Laboratory Tests Test 02/17/17 06:15 02/17/17 09:42 Sodium Level 152 H Potassium Level 3.4 L Chloride Level 113 H Carbon Dioxide Level 30 Anion Gap 12 Blood Urea Nitrogen 37 H Creatinine 0.43 L Glucose Level 123 Calcium Level 9.1 Phosphorus Level 3.6 Magnesium Level 2.1 Lab Scanned Report REFERENCE LAB Medications Medications Current Medications Fluconazole (Diflucan) 200 mg DAILY PO Last administered on 02/16/17 08:46; Admin Dose 200 MG; Start 02/11/17 at 10:00 Metoprolol Tartrate (Lopressor) 25 mg BID PO Last administered on 02/16/17 21: 32; Admin Dose 25 MG; Start 02/11/17 at 21:00 Pantoprazole (Protonix Tab) 40 mg DAILY PO Last administered on 02/16/17 08:46 ; Admin Dose 40 MG; Start 02/12/17 at 09:00 Ondansetron HCl (Zofran Inj) 4 mg Q6H PRN IV NAUSEA AND/OR VOMITING Last administered on 02/13/17 00:36; Admin Dose 4 MG; Start 02/11/17 at 10:00 Acetaminophen (Tylenol Tab) 650 mg Q6H PRN PO PAIN LEVEL 1-3 OR FEVER; Start at 10:00 Morphine Sulfate (morphine) 2 mg Q4H PRN IV PAIN LEVEL 7-10 Last administered on 02/13/17 09:45; Admin Dose 2 MG; Start 02/11/17 at 10:00 Docusate Sodium (Colace) 100 mg Q12H PRN PO CONSTIPATION; Start 02/11/17 at 10: 00 Bisacodyl 10 mg 10 mg DAILY PRN [place] CONSTIPATION; Start 02/11/17 at 10:00 Meropenem/Sodium Chloride (Merrem 1 Gm/50 ml (Pmx)) 50 ml @ 200 mls/hr Q12 IVPB Last administered on 02/17/17 09:28; Admin Dose 200 MLS/HR; Start at 18:00 Miscellaneous Information (Pending Santyl Order For Wound Care) This patient prado... PRN PRN XX WOUND CARE; Start 02/11/17 at 19:00 Collagenase (Santyl) 1 applic DAILY TOP Last administered on 02/17/17 09:36; Admin Dose 1 APPLIC; Start 02/12/17 at 13:30 Diphenhydramine HCl 25 mg 25 mg Q6H PRN IV ITCHING; Start 02/12/17 at 14:00 Total Parenteral Nutrition (Tpn) 1,000 ml @ 40 mls/hr Q24H IV Last administered on 02/16/17 18:58; Admin Dose 40 MLS/HR; Start 02/12/17 at 18:00 Midodrine (Proamatine) 5 mg BID PO Last administered on 02/17/17 09:35; Admin Dose 5 MG; Start 02/15/17 at 21:00 Mupirocin 1 applic 1 applic BID TOP Last administered on 02/17/17 09:38; Admin Dose 1 APPLIC; Start 02/15/17 at 21:00 Potassium Chloride (KCl 40 MEQ/250 ML NS) 250 ml @ 62.5 mls/hr ONCE ONCE IVPB ; Start 02/17/17 at 11:00; Stop 02/17/17 at 14:59 BONIFACIO COWART Feb 17, 2017 11:41
[2017-02-17 12:41] LABS: INR 1.3; PROTIME 16.3 Sec (12.2-14.2); PT RATIO 1.3
[2017-02-17 14:10] LABS: AADO2 Arterial 111.3 mmHg (7.0-24.0); Allen Test ACCEPTAB; Arterial Base Excess 2.5 mmol/L (-3.0-3); Arterial COHb 1.5 % (0.0-3.0); Arterial MetHb 0.5 % (0.0-1.5); MODE NASAL CANNULA
[2017-02-17] MEDS: DIPHENHYDRAMINE 50 MG INJ IV PRN (14:34)
--- NOTE | 2017-02-17 14:54 | PN ---
Date/Time of Note Date/Time of Note DATE: 02/17/17 TIME: 14:51 Assessment/Plan VTE Prophylaxis VTE Prophylaxis Intervention: SCD's Lines/Catheters [facility] PICC Line Central line still needed: Yes Urinary Cath still in place: Yes Reason Cath still needed: urinary retention Assessment/Plan Assessment/Plan Assessment * Anemia * Refused EGD * Pancreatitis with Pancreatic pseudocyst/awaiting drainage * Coagulopathy * H/O tube cholecystostomy * H/O ERCP removal of stone with biliary stent * acute Respiratory failure improved Plan * Continue present regimen * Surgical management of pseudocyst * Endoscopic attempts at cystogastrostomy would require tertiary facility * IR drainage once coagulation permits * monitor hemoglobin and hematocrit daily and transfuse per protocol * further orders will depend on clinical course * case discussed with DR Hill Subjective 24 Hr Interval Summary Free Text/Dictation * Course reviewed with RN * Patient seen and examined * Refused EGD * Patient on oxygen face mask Exam/Review of Systems Vital Signs Vitals Vital Signs Date Time Temp Pulse Resp B/P Pulse Ox O2 Delivery O2 Flow Rate FiO2 02/17/17 13:53 75 96 45 02/17/17 11:24 98.2 18 107/52 02/17/17 08:45 Nasal Cannula 4.0 Intake and Output 02/16/17 02/16/17 02/17/17 15:00 23:00 07:00 Intake Total 50 ml 440 ml Output Total 1500 ml 800 ml Balance -1450 ml -360 ml Exam Constitutional: frail Neck: non-tender, supple Respiratory: diminished breath sounds Cardiovascular: nl pulses, regular rate and rhythm Gastrointestinal: nl liver, spleen, non-tender, soft Musculoskeletal: muscle weakness Extremities: pitting pedal edema Neurological: confused Skin: nl turgor Lymph: nl lymph nodes Results Result Diagram: 02/16/17 0520 02/17/17 0615 Results 24 hrs Laboratory Tests Test 02/17/17 06:15 02/17/17 09:42 02/17/17 12:00 02/17/17 13:39 Sodium Level 152 H Potassium Level 3.4 L Chloride Level 113 H Carbon Dioxide Level 30 Anion Gap 12 Blood Urea Nitrogen 37 H Creatinine 0.43 L Glucose Level 123 Calcium Level 9.1 Phosphorus Level 3.6 Magnesium Level 2.1 Lab Scanned Report REFERENCE LAB Prothrombin Time 16.3 H Prothrombin Time Ratio 1.3 INR International Normalized Ratio 1.30 Blood Gas Specimen Source Blood arterial Arterial Blood Date Drawn 02/17/2017 1:50:12 PM Arterial Blood pH (Temp corrected) 7.287 *L Arterial Blood pCO2 (Temp correct) 64.2 H Arterial Blood pO2 (Temp corrected) 70.9 L Arterial Blood HCO3 30.0 H Arterial Blood Base Excess 2.5 Arterial Blood Oxygen Saturation 90.8 L Shreyas Test ACCEPTAB Arterial Blood Gas Puncture Site Left Radial Arterial Blood Carboxyhemoglobin 1.5 Arterial Blood Methemoglobin 0.5 Blood Gas A-a O2 Differential 111.3 H Oxyhemoglobin Percent 89.0 L Total Hemoglobin 9.0 L Blood Gas Temperature 37.0 Blood Gas Modality NASAL CANNULA FiO2 36.0 Blood Gas Critical Value Read Back S SWATHI COSTELLO Blood Gas Notified Whom HOLLAND Blood Gas Notified Time 02/17/2017 2:10:48 PM Medications Medications Current Medications Fluconazole (Diflucan) 200 mg DAILY PO Last administered on 02/16/17 08:46; Admin Dose 200 MG; Start 02/11/17 at 10:00 Metoprolol Tartrate (Lopressor) 25 mg BID PO Last administered on 02/16/17 21: 32; Admin Dose 25 MG; Start 02/11/17 at 21:00 Pantoprazole (Protonix Tab) 40 mg DAILY PO Last administered on 02/16/17 08:46 ; Admin Dose 40 MG; Start 02/12/17 at 09:00 Ondansetron HCl (Zofran Inj) 4 mg Q6H PRN IV NAUSEA AND/OR VOMITING Last administered on 02/13/17 00:36; Admin Dose 4 MG; Start 02/11/17 at 10:00 Acetaminophen (Tylenol Tab) 650 mg Q6H PRN PO PAIN LEVEL 1-3 OR FEVER; Start at 10:00 Morphine Sulfate (morphine) 2 mg Q4H PRN IV PAIN LEVEL 7-10 Last administered on 02/13/17 09:45; Admin Dose 2 MG; Start 02/11/17 at 10:00 Docusate Sodium (Colace) 100 mg Q12H PRN PO CONSTIPATION; Start 02/11/17 at 10: 00 Bisacodyl 10 mg 10 mg DAILY PRN [place] CONSTIPATION; Start 02/11/17 at 10:00 Meropenem/Sodium Chloride (Merrem 1 Gm/50 ml (Pmx)) 50 ml @ 200 mls/hr Q12 IVPB Last administered on 02/17/17 09:28; Admin Dose 200 MLS/HR; Start at 18:00 Miscellaneous Information (Pending Santyl Order For Wound Care) This patient prado... PRN PRN XX WOUND CARE; Start 02/11/17 at 19:00 Collagenase (Santyl) 1 applic DAILY TOP Last administered on 02/17/17 09:36; Admin Dose 1 APPLIC; Start 02/12/17 at 13:30 Diphenhydramine HCl 25 mg 25 mg Q6H PRN IV ITCHING Last administered on 14:34; Admin Dose 25 MG; Start 02/12/17 at 14:00 Total Parenteral Nutrition (Tpn) 1,000 ml @ 40 mls/hr Q24H IV Last administered on 02/16/17 18:58; Admin Dose 40 MLS/HR; Start 02/12/17 at 18:00 Midodrine (Proamatine) 5 mg BID PO Last administered on 02/17/17 09:35; Admin Dose 5 MG; Start 02/15/17 at 21:00 Mupirocin 1 applic 1 applic BID TOP Last administered on 02/17/17 09:38; Admin Dose 1 APPLIC; Start 02/15/17 at 21:00 Potassium Chloride (KCl 40 MEQ/250 ML NS) 250 ml @ 62.5 mls/hr ONCE ONCE IVPB Last administered on 02/17/17 12:02; Admin Dose 62.5 MLS/HR; Start 02/17/17 at 11:00; Stop 02/17/17 at 14:59 LUZMARIA SPAIN NP Feb 17, 2017 14:54
[2017-02-17] MEDS: ALBUTEROL/IPRATROPIUM (NEB) 3 ML AMP HHN SCH (15:40)
[2017-02-17] MEDS: TPN 1,000 ML IV SCH (18:46)
[2017-02-17 21:27] LABS: AADO2 Arterial 188.9 mmHg (7.0-24.0); Allen Test ACCEPTAB; Arterial COHb 0.2 % (0.0-3.0); Arterial Fraction of Oxyhgb 95.6 % (93.0-99.0); Arterial HCO3 27.3 mmol/L (22.0-26.0); Arterial MetHb 0.7 % (0.0-1.5); Arterial Total Hemglobin 7.5 g/dl (12.0-18.0); Blood Gas IEPAP 16/6; Blood Gas PS 10; MODE BIPAP
[2017-02-18] VITALS (26 sets, daily range): BP systolic 90–128; BP diastolic 47–87; PULSE 21–88; RESP 18–24
[2017-02-18] MEDS: ALBUTEROL/IPRATROPIUM (NEB) 3 ML AMP HHN SCH ×4 (01:04→23:44)
[2017-02-18 07:07] LABS: ADD SCAN DIFF NO
[2017-02-18 07:32] LABS: INR 1.39; PROTIME 17.1 Sec (12.2-14.2); PT RATIO 1.3
[2017-02-18 07:36] LABS: CALCIUM 9.2 mg/dl (8.4-10.2); CREATININE 0.52 mg/dl (0.44-1.00)
[2017-02-18 08:13] LABS: ABNORMAL IP MESSAGE 1; HEMATOCRIT 21.7 % (37.0-47.0); MEAN CORPUSCULAR HEMOGLOBIN 28.4 pg (29.0-33.0); MEAN CORPUSCULAR HGB CONC 30.9 g/dl (32.0-37.0); MEAN CORPUSCULAR VOLUME 91.9 fl (82.0-101.0); MEAN PLATELET VOLUME 14.1 fl (7.4-10.4); PLATELET COUNT 104 10^3/UL (140-415); RED BLOOD COUNT 2.36 10^6/ul (4.20-5.40); RED CELL DISTRIBUTION WIDTH 18.4 % (11.5-14.5)
[2017-02-18 08:32] LABS: HEMOGLOBIN 6.7 g/dl (12.0-16.0)
--- NOTE | 2017-02-18 08:43 | PQ ---
Date/Time of Note Date/Time of Note DATE: 02/18/17 TIME: 08:28 Physician Query Documentation Clarification Dear Misael Wallis NP A review of the medical record found a need for documentation clarification. progress note 02/17- Respiratory failure improved ABG 02/17 - 7.287 / 64.2- p CO2 / 70.9- pO2 / 90.8-sat Please clarify a diagnosis being treated. To facilitate accurate and complete coding, please shad ( x ) the suspected diagnosis that apply: ( ) Acute respiratory failure ( ) With hypercapnea ( ) with hypoxia ( ) Chronic Respiratory failure ( ) Others Please provide your response by clicking edit document, making your choice ( x ), click ok/save and finally click sign. You may also document your response on your progress notes. Thank you for your time. With appreciation, Marco Gastelum RN, BSN, CCS, CCDS Clinical Investment Fund Manager Health Information Management, CDI and Coding Services [phone] Room # 1525 - [address]~ [id number] MARCO GASTELUM Feb 18, 2017 08:40
[2017-02-18] MEDS: METOPROLOL 25 MG TAB PO SCH ×3 (08:55→20:47)
[2017-02-18] MEDS: FLUCONAZOLE 200 MG TAB PO SCH (08:55)
[2017-02-18] MEDS: MUPIROCIN 2% 22 GM OINT TOP SCH ×2 (08:56→20:49)
[2017-02-18] MEDS: COLLAGENASE 30 GM TUBE TOP SCH (08:56)
[2017-02-18] MEDS ORDERED: SOD CHLORIDE 0.9% 250 ML IV* ONE (08:56)
[2017-02-18] MEDS: PANTOPRAZOLE (EC) 40 MG TAB PO SCH (08:56)
[2017-02-18] MEDS: MIDODRINE 5 MG TAB PO SCH ×2 (08:56→20:48)
[2017-02-18] MEDS ORDERED: FUROSEMIDE 20 MG INJ IV ONE (09:00)
[2017-02-18] MEDS: MEROPENEM 1 GM/50ML(PMX) 50 ML IVPB SCH ×2 (10:14→21:58)
[2017-02-18 10:28] LABS: EOSINOPHILS # 0.1 10^3/ul (0.0-0.5); LYMPHOCYTES # 0.1 10^3/ul (0.8-2.9); MONOCYTE # 0.1 10^3/ul (0.3-0.9); NEUTROPHIL # 5.6 10^3/ul (1.6-7.5)
[2017-02-18 10:29] LABS: HYPOCHROMASIA 1+; OVALOCYTES 1+
[2017-02-18 10:36] LABS: HEMATOCRIT 14.1 % (37.0-47.0)
[2017-02-18 10:39] LABS: PLATELET COUNT 97 10^3/UL (140-415)
[2017-02-18 10:53] LABS: RETICULOCYTE COUNT % 1.9 % (0.5-1.5)
[2017-02-18 11:04] LABS: PARTIAL THROMBOPLASTIN TIME 35.5 Sec (25.0-35.0)
[2017-02-18 11:07] LABS: THROMBIN TIME 17.1 SEC (13.8-19.1)
[2017-02-18 11:08] LABS: INR 1.41; PROTIME 17.3 Sec (12.2-14.2); PT RATIO 1.4
--- NOTE | 2017-02-18 11:29 | PN ---
Date/Time of Note Date/Time of Note DATE: 02/18/17 TIME: 11:19 Assessment/Plan VTE Prophylaxis VTE Prophylaxis Intervention: SCD's, other (Status post IVC filter with known DVT) Lines/Catheters IV Catheter Type (from Nrsg): PICC Line Central line still needed: Yes (For TPN and IV access) Urinary Cath still in place: Yes Reason Cath still needed: other (indicate) (Monitor urine output) Assessment/Plan Assessment/Plan 86 yo female with: 1. Acute on chronic anemia with again drop of hemoglobin to 6.0 this AM Bleeding scan GI to re-eval Will plan for transfusion of 2 units of packed red blood cells and 1 unit of FFP No signs of acute bleeding however patient does have positive fecal occult blood. Appreciate GI consult, patient and her son declined EGD prior but may consent with given this second episode of severe anemia. Appreciate recommendations of Dr Hannah, may still needs CT guided drainage of 2nd pseudocyst by IR, patient currently n.p.o. and awaiting repeat INR today. S/p second dose of vitamin K yesterday, additional FFP today. 2. Respiratory distress, in setting of pleural effusions, atelectasis, severe anemia and poor overall clinical status. Patient had to be put back on BiPAP yesterday afternoon and still on BiPAP currently, Lasix today if blood pressure tolerates. Continue nebulizer treatment. If needed thoracentesis will be repeated. Monitor respiratory status Of note she did have bilateral thoracentesis at [facility] on her admission there last month 3. Severe pancreatitis with pseudocyst, currently on TPN and clear liquids. CAT scan of the abdomen and pelvis has been compared to the one done at [facility] approximately 3 weeks ago, cholecystostomy tube has been removed however there is concern as the patient has a new fluid collection in addition of the previous pseudocyst also previous pseudocyst seems to have increased in size and there is concern for possible infection. INR today back up to 1.4, patient mostly n.p.o. for possible drainage of 2nd pseudocyst but also because of poor appetite and severe pancreatitis with pseudocyst. Continue Meropenem for now. 4. Hypotension: Based on records patient has been actually put on midodrine 5 mg p.o. tid due to ongoing hypotension even at discharge from [facility], Continue midodrine at current dosing Continue Abx. 5. Urinary retention, status post acute kidney injury at [facility] , renal function seems to be much better, Elder catheter in place. Repeat UA wnl , repeat Urine cx negative. 6. Hypernatremia, Nutrition: Slowly improving with TPN adjustments TPN to be adjusted per pharmacy to adjust daily based on electrolytes. Repleting electrolytes additionally as needed. 7. Sinus Tachycardia: Per report from [facility] patient has sinus tachycardia. Resolving Continue beta-blockers as tolerated. 8. Venous thromboembolism with episode of DVT, status post IVC filter 9. Mild coagulopathy: PTT wnl, Vitamin K to be given again today, repeat INR pending today. Prophylaxis: Protonix for GI prophylaxis, SCDs and status post IVC filter for DVT prophylaxis Disposition: CT guided drainage of new pseudocyst by IR if possible or still needed Appreciate GI recs and cultures pending drainage. PT re-eval. I have concerns regarding the son's DPOA status. Apparently he had it signed this past weekend while the patient was inpatient and definitely not mentally sound enough to make decisions, the son himself based on discussion I had with him before does not seem to be adequate to make important medical decisions as his reasoning was mostly paranoid at times. I had a discussion with him today to update him regarding his mother's poor clinical condition and poor prognosis, I am not sure he actually comprehended information that was given to him, so I have asked him to come to the hospital at the bedside for medical update and any further discussion regarding the patient's care tomorrow at 1 PM. Subjective 24 Hr Interval Summary Free Text/Dictation Patient with some decompensation yesterday, she is now requiring BiPAP, hemoglobin down to 6.0 this morning with no obvious acute bleeding. I had a discussion with the son Jesus who again barely made any sense and however agrees to blood transfusions and further GI reevaluation and possible workup. Patient to receive 2 units of packed red blood cells and 1 unit of FFP. We had to order sitter as she is more confused. Prognosis is not good as of now and this has been communicated to the son over- the-counter however he has a very hard time focusing on the conversation, he keeps digressing in the non relevant topics with tendency to be paranoid. Exam/Review of Systems Vital Signs Vitals Vital Signs Date Time Temp Pulse Resp B/P Pulse Ox O2 Delivery O2 Flow Rate FiO2 02/18/17 08:33 82 02/18/17 08:24 97.7 20 102/65 100 02/18/17 08:13 45 02/18/17 00:00 BIPAP 02/17/17 08:45 4.0 Intake and Output 02/17/17 02/17/17 02/18/17 15:00 23:00 07:00 Intake Total 50 ml 580 ml 420 ml Output Total 250 ml 500 ml Balance 50 ml 330 ml -80 ml Exam Constitutional: frail, other (Lethargic) Respiratory: diminished breath sounds (Bases), other Cardiovascular: nl pulses, regular rate and rhythm Gastrointestinal: soft, tender (Some epigastric) Musculoskeletal: nl extremities to inspection, other (Much less anasarca) Extremities: normal pulses Neurological: LIGHT CLEANER II-XII intact, confused, lethargic, other (Mostly bedridden) Results Result Diagram: 02/18/17 1013 02/18/17 0631 Results 24 hrs Laboratory Tests Test 02/17/17 12:00 02/17/17 13:39 02/17/17 20:00 02/18/17 06:31 Prothrombin Time 16.3 H 17.1 H Prothrombin Time Ratio 1.3 1.3 INR International Normalized Ratio 1.30 1.39 Blood Gas Specimen Source Blood arterial Blood arterial Arterial Blood Date Drawn 02/17/2017 1:50:12 PM 02/17/2017 9:20:32 PM Arterial Blood pH (Temp corrected) 7.287 *L 7.503 H Arterial Blood pCO2 (Temp correct) 64.2 H 35.6 Arterial Blood pO2 (Temp corrected) 70.9 L 91.5 H Arterial Blood HCO3 30.0 H 27.3 H Arterial Blood Base Excess 2.5 4.0 H Arterial Blood Oxygen Saturation 90.8 L 96.5 Shreyas Test ACCEPTAB ACCEPTAB Arterial Blood Gas Puncture Site Left Radial Right Radial Arterial Blood Carboxyhemoglobin 1.5 0.2 Arterial Blood Methemoglobin 0.5 0.7 Blood Gas A-a O2 Differential 111.3 H 188.9 H Oxyhemoglobin Percent 89.0 L 95.6 Total Hemoglobin 9.0 L 7.5 L Blood Gas Temperature 37.0 37.0 Blood Gas Modality NASAL CANNULA BIPAP FiO2 36.0 45.0 Blood Gas Critical Value Read Back S SWATHI RN Blood Gas Notified Whom HOLLAND GANDHI Blood Gas Notified Time 02/17/2017 2:10:48 PM 02/17/2017 9:27:41 PM Blood Gas Actual Respiration Rate 28 Blood Gas Pressure Support 10 Blood Gas IPAP/EPAP Ratio 16/6 Sodium Level 154 H Potassium Level 4.0 Chloride Level 115 H Carbon Dioxide Level 29 Anion Gap 14 Blood Urea Nitrogen 44 H Creatinine 0.52 Glucose Level 109 Calcium Level 9.2 Magnesium Level 2.2 Test 02/18/17 06:32 02/18/17 10:13 White Blood Count 6.4 Red Blood Count 2.36 #L Hemoglobin 6.7 *L 6.0 *L Hematocrit 21.7 #L 14.1 #L Mean Corpuscular Volume 91.9 Mean Corpuscular Hemoglobin 28.4 L Mean Corpuscular Hemoglobin Concent 30.9 L Red Cell Distribution Width 18.4 #H Platelet Count 104 #L 97 L Mean Platelet Volume 14.1 H Neutrophils % 88.0 H Band Neutrophils % 7.0 H Lymphocytes % 2.0 L Monocytes % 1.0 Eosinophils % 2.0 Neutrophils # 5.6 Lymphocytes # 0.1 L Monocytes # 0.1 L Eosinophils # 0.1 Hypochromasia 1+ Ovalocytes 1+ Stomatocytes Absolute Reticulocyte Count 0.028 Percent Reticulocyte Count 1.9 H Prothrombin Time 17.3 H Prothrombin Time Ratio 1.4 INR International Normalized Ratio 1.41 Activated Partial Thromboplast Time 35.5 H Thrombin Time Pending Fibrinogen 224.0 Plasma Fibrin Degradation Products Pending D-Dimer Pending Medications Medications Current Medications Fluconazole (Diflucan) 200 mg DAILY PO Last administered on 02/16/17 08:46; Admin Dose 200 MG; Start 02/11/17 at 10:00 Metoprolol Tartrate (Lopressor) 25 mg BID PO Last administered on 02/17/17 21: 04; Admin Dose 25 MG; Start 02/11/17 at 21:00 Pantoprazole (Protonix Tab) 40 mg DAILY PO Last administered on 02/16/17 08:46 ; Admin Dose 40 MG; Start 02/12/17 at 09:00 Ondansetron HCl (Zofran Inj) 4 mg Q6H PRN IV NAUSEA AND/OR VOMITING Last administered on 02/13/17 00:36; Admin Dose 4 MG; Start 02/11/17 at 10:00 Acetaminophen (Tylenol Tab) 650 mg Q6H PRN PO PAIN LEVEL 1-3 OR FEVER; Start at 10:00 Morphine Sulfate (morphine) 2 mg Q4H PRN IV PAIN LEVEL 7-10 Last administered on 02/13/17 09:45; Admin Dose 2 MG; Start 02/11/17 at 10:00 Docusate Sodium (Colace) 100 mg Q12H PRN PO CONSTIPATION; Start 02/11/17 at 10: 00 Bisacodyl 10 mg 10 mg DAILY PRN [place] CONSTIPATION; Start 02/11/17 at 10:00 Meropenem/Sodium Chloride (Merrem 1 Gm/50 ml (Pmx)) 50 ml @ 200 mls/hr Q12 IVPB Last administered on 02/18/17 10:14; Admin Dose 200 MLS/HR; Start at 18:00 Miscellaneous Information (Pending Santyl Order For Wound Care) This patient prado... PRN PRN XX WOUND CARE; Start 02/11/17 at 19:00 Collagenase (Santyl) 1 applic DAILY TOP Last administered on 02/18/17 08:56; Admin Dose 1 APPLIC; Start 02/12/17 at 13:30 Diphenhydramine HCl 25 mg 25 mg Q6H PRN IV ITCHING Last administered on 14:34; Admin Dose 25 MG; Start 02/12/17 at 14:00 Total Parenteral Nutrition (Tpn) 1,000 ml @ 40 mls/hr Q24H IV Last administered on 02/17/17 18:46; Admin Dose 40 MLS/HR; Start 02/12/17 at 18:00 Midodrine (Proamatine) 5 mg BID PO Last administered on 02/17/17 21:03; Admin Dose 5 MG; Start 02/15/17 at 21:00 Mupirocin (Bactroban) 1 applic BID TOP Last administered on 02/17/17 21:04; Admin Dose 1 APPLIC; Start 02/15/17 at 21:00 BONIFACIO COWART Feb 18, 2017 11:29
[2017-02-18 11:40] LABS: FIBRIN SPLIT PRODUCT <10 ug/ml (<10)
--- NOTE | 2017-02-18 13:42 | PN ---
Date/Time of Note Date/Time of Note DATE: 02/18/17 TIME: 13:38 Assessment/Plan VTE Prophylaxis VTE Prophylaxis Intervention: SCD's Lines/Catheters IV Catheter Type (from [facility]): PICC Line Central line still needed: Yes Urinary Cath still in place: Yes Reason Cath still needed: urinary retention Assessment/Plan Assessment/Plan Anemia hemoglobin 6 * Refused EGD * Pancreatitis with Pancreatic pseudocyst/awaiting drainage * Coagulopathy * H/O tube cholecystostomy * H/O ERCP removal of stone with biliary stent * acute Respiratory failure improved Plan * Continue present regimen * Surgical management of pseudocyst * Endoscopic attempts at cystogastrostomy would require tertiary facility * IR drainage once coagulation permits * monitor hemoglobin and hematocrit daily and transfuse per protocol * further orders will depend on clinical course * case discussed with DR Hill Subjective 24 Hr Interval Summary Free Text/Dictation * course reviewed with RN * Patient seen and examined * Hemoglobin drop 6 * still on bipap * Spoke to son ariana gave updates mothers condition * bleeding scan to be performed if he is present , Exam/Review of Systems Vital Signs Vitals Vital Signs Date Time Temp Pulse Resp B/P Pulse Ox O2 Delivery O2 Flow Rate FiO2 02/18/17 12:29 67 02/18/17 12:03 96.9 20 110/47 96 02/18/17 08:13 45 02/18/17 00:00 BIPAP 02/17/17 08:45 4.0 Intake and Output 02/17/17 02/17/17 02/18/17 15:00 23:00 07:00 Intake Total 50 ml 580 ml 420 ml Output Total 250 ml 500 ml Balance 50 ml 330 ml -80 ml Exam Constitutional: frail Neck: non-tender, supple Respiratory: diminished breath sounds, normal air movement Cardiovascular: nl pulses, regular rate and rhythm Gastrointestinal: non-tender, soft Musculoskeletal: muscle weakness, swelling Extremities: edema, pitting pedal edema Neurological: confused Results Result Diagram: 02/18/17 1013 02/18/17 0631 Results 24 hrs Laboratory Tests Test 02/17/17 13:39 02/17/17 20:00 02/18/17 06:31 02/18/17 06:32 Blood Gas Specimen Source Blood arterial Blood arterial Arterial Blood Date Drawn 02/17/2017 1:50:12 PM 02/17/2017 9:20:32 PM Arterial Blood pH (Temp corrected) 7.287 *L 7.503 H Arterial Blood pCO2 (Temp correct) 64.2 H 35.6 Arterial Blood pO2 (Temp corrected) 70.9 L 91.5 H Arterial Blood HCO3 30.0 H 27.3 H Arterial Blood Base Excess 2.5 4.0 H Arterial Blood Oxygen Saturation 90.8 L 96.5 Shreyas Test ACCEPTAB ACCEPTAB Arterial Blood Gas Puncture Site Left Radial Right Radial Arterial Blood Carboxyhemoglobin 1.5 0.2 Arterial Blood Methemoglobin 0.5 0.7 Blood Gas A-a O2 Differential 111.3 H 188.9 H Oxyhemoglobin Percent 89.0 L 95.6 Total Hemoglobin 9.0 L 7.5 L Blood Gas Temperature 37.0 37.0 Blood Gas Modality NASAL CANNULA BIPAP FiO2 36.0 45.0 Blood Gas Critical Value Read Back S SWATHI COSTELLO Blood Gas Notified Whom HOLLAND MRLULÚ Blood Gas Notified Time 02/17/2017 2:10:48 PM 02/17/2017 9:27:41 PM Blood Gas Actual Respiration Rate 28 Blood Gas Pressure Support 10 Blood Gas IPAP/EPAP Ratio 16/6 Prothrombin Time 17.1 H Prothrombin Time Ratio 1.3 INR International Normalized Ratio 1.39 Sodium Level 154 H Potassium Level 4.0 Chloride Level 115 H Carbon Dioxide Level 29 Anion Gap 14 Blood Urea Nitrogen 44 H Creatinine 0.52 Glucose Level 109 Calcium Level 9.2 Magnesium Level 2.2 White Blood Count 6.4 Red Blood Count 2.36 #L Hemoglobin 6.7 *L Hematocrit 21.7 #L Mean Corpuscular Volume 91.9 Mean Corpuscular Hemoglobin 28.4 L Mean Corpuscular Hemoglobin Concent 30.9 L Red Cell Distribution Width 18.4 #H Platelet Count 104 #L Mean Platelet Volume 14.1 H Neutrophils % 88.0 H Band Neutrophils % 7.0 H Lymphocytes % 2.0 L Monocytes % 1.0 Eosinophils % 2.0 Neutrophils # 5.6 Lymphocytes # 0.1 L Monocytes # 0.1 L Eosinophils # 0.1 Hypochromasia 1+ Ovalocytes 1+ Stomatocytes Test 02/18/17 10:13 Hemoglobin 6.0 *L Hematocrit 14.1 #L Platelet Count 97 L Absolute Reticulocyte Count 0.028 Percent Reticulocyte Count 1.9 H Prothrombin Time 17.3 H Prothrombin Time Ratio 1.4 INR International Normalized Ratio 1.41 Activated Partial Thromboplast Time 35.5 H Thrombin Time 17.1 Fibrinogen 224.0 Plasma Fibrin Degradation Products <10 D-Dimer 9999.00 H D-Dimer Comment Medications Medications Current Medications Fluconazole (Diflucan) 200 mg DAILY PO Last administered on 02/16/17 08:46; Admin Dose 200 MG; Start 02/11/17 at 10:00 Metoprolol Tartrate (Lopressor) 25 mg BID PO Last administered on 02/17/17 21: 04; Admin Dose 25 MG; Start 02/11/17 at 21:00 Pantoprazole (Protonix Tab) 40 mg DAILY PO Last administered on 02/16/17 08:46 ; Admin Dose 40 MG; Start 02/12/17 at 09:00 Ondansetron HCl (Zofran Inj) 4 mg Q6H PRN IV NAUSEA AND/OR VOMITING Last administered on 02/13/17 00:36; Admin Dose 4 MG; Start 02/11/17 at 10:00 Acetaminophen (Tylenol Tab) 650 mg Q6H PRN PO PAIN LEVEL 1-3 OR FEVER; Start at 10:00 Morphine Sulfate (morphine) 2 mg Q4H PRN IV PAIN LEVEL 7-10 Last administered on 02/13/17 09:45; Admin Dose 2 MG; Start 02/11/17 at 10:00 Docusate Sodium (Colace) 100 mg Q12H PRN PO CONSTIPATION; Start 02/11/17 at 10: 00 Bisacodyl 10 mg 10 mg DAILY PRN [place] CONSTIPATION; Start 02/11/17 at 10:00 Meropenem/Sodium Chloride (Merrem 1 Gm/50 ml (Pmx)) 50 ml @ 200 mls/hr Q12 IVPB Last administered on 02/18/17 10:14; Admin Dose 200 MLS/HR; Start at 18:00 Miscellaneous Information (Pending Santyl Order For Wound Care) This patient prado... PRN PRN XX WOUND CARE; Start 02/11/17 at 19:00 Collagenase (Santyl) 1 applic DAILY TOP Last administered on 02/18/17 08:56; Admin Dose 1 APPLIC; Start 02/12/17 at 13:30 Diphenhydramine HCl 25 mg 25 mg Q6H PRN IV ITCHING Last administered on 14:34; Admin Dose 25 MG; Start 02/12/17 at 14:00 Total Parenteral Nutrition (Tpn) 1,000 ml @ 40 mls/hr Q24H IV Last administered on 02/17/17 18:46; Admin Dose 40 MLS/HR; Start 02/12/17 at 18:00 Midodrine (Proamatine) 5 mg BID PO Last administered on 02/17/17 21:03; Admin Dose 5 MG; Start 02/15/17 at 21:00 Mupirocin (Bactroban) 1 applic BID TOP Last administered on 02/17/17 21:04; Admin Dose 1 APPLIC; Start 02/15/17 at 21:00 LUZMRAIA SPAIN NP Feb 18, 2017 13:42
[2017-02-18] MEDS: morphine 2 MG INJ IV PRN (15:18)
[2017-02-18] MEDS ORDERED: FUROSEMIDE 20 MG INJ ONE (17:38)
[2017-02-18] MEDS: TPN 1,000 ML IV SCH (18:00)
[2017-02-19] VITALS (16 sets, daily range): BP systolic 100–124; BP diastolic 54–58; PULSE 74–89; RESP 24–28
[2017-02-19] MEDS: TPN 1,000 ML IV SCH ×2 (01:00→18:00)
[2017-02-19] MEDS: ALBUTEROL/IPRATROPIUM (NEB) 3 ML AMP HHN SCH ×2 (07:50→16:14)
[2017-02-19 08:03] LABS: ADD SCAN DIFF NO
[2017-02-19 08:13] LABS: ABNORMAL IP MESSAGE 1; MEAN CORPUSCULAR VOLUME 99.5 fl (82.0-101.0); MEAN PLATELET VOLUME 14.1 fl (7.4-10.4); PLATELET COUNT 102 10^3/UL (140-415); RED CELL DISTRIBUTION WIDTH 22.5 % (11.5-14.5); WHITE BLOOD COUNT 6.3 10^3/ul (4.8-10.8)
[2017-02-19 08:14] LABS: MEAN CORPUSCULAR HEMOGLOBIN 45.1 pg (29.0-33.0); MEAN CORPUSCULAR HGB CONC 45.3 g/dl (32.0-37.0)
[2017-02-19 08:32] LABS: INR 1.29; PROTIME 16.2 Sec (12.2-14.2); PT RATIO 1.3
[2017-02-19 08:33] LABS: PARTIAL THROMBOPLASTIN TIME 35.9 Sec (25.0-35.0)
[2017-02-19 08:34] LABS: CALCIUM 9.1 mg/dl (8.4-10.2); CREATININE 0.63 mg/dl (0.44-1.00); MAGNESIUM 2.2 mg/dl (1.7-2.5); PHOSPHORUS 4.1 mg/dl (2.5-4.9); POTASSIUM 3.7 mmol/L (3.5-5.1)
[2017-02-19] MEDS: COLLAGENASE 30 GM TUBE TOP SCH ×2 (09:00→14:59)
[2017-02-19] MEDS: MUPIROCIN 2% 22 GM OINT TOP SCH ×3 (09:00→20:31)
[2017-02-19] MEDS: PANTOPRAZOLE (EC) 40 MG TAB PO SCH (09:07)
[2017-02-19] MEDS: METOPROLOL 25 MG TAB PO SCH ×2 (09:07→20:30)
[2017-02-19] MEDS: FLUCONAZOLE 200 MG TAB PO SCH (09:07)
[2017-02-19] MEDS: MEROPENEM 1 GM/50ML(PMX) 50 ML IVPB SCH ×2 (09:08→20:31)
[2017-02-19] MEDS: MIDODRINE 5 MG TAB PO SCH ×2 (09:08→20:31)
[2017-02-19 10:48] LABS: WHITE BLOOD COUNT 6.4 10^3/ul (4.8-10.8)
[2017-02-19 11:09] LABS: EOSINOPHILS # 0.1 10^3/ul (0.0-0.5); ERYTHROBLAST% (NRBC) (M) 1 % (0-0); LYMPHOCYTES # 0.9 10^3/ul (0.8-2.9); MONOCYTE # 0.2 10^3/ul (0.3-0.9); NEUTROPHIL # 4.7 10^3/ul (1.6-7.5)
--- NOTE | 2017-02-19 13:00 | PN ---
Date/Time of Note Date/Time of Note DATE: 02/19/17 TIME: 12:54 Assessment/Plan VTE Prophylaxis VTE Prophylaxis Intervention: other (Status post IVC filter) Lines/Catheters IV Catheter Type (from Nrsg): PICC Line Central line still needed: Yes (IV access and TPN) Urinary Cath still in place: Yes Reason Cath still needed: other (indicate) Assessment/Plan Assessment/Plan 86 yo female with: 1. Acute on chronic anemia with again drop of hemoglobin to 6.0 this AM s/p transfusion of 2 units of packed red blood cells and 1 unit of FFP Bleeding scan pending GI to re-eval pending No signs of acute bleeding so far however patient does have positive fecal occult blood. Appreciate GI consult, patient and her son declined EGD prior but may consent given this second episode of severe anemia. Appreciate recommendations of Dr Hannah, may still needs CT guided drainage of 2nd pseudocyst by IR, patient currently n.p.o. and INR better today but patient clinical status noted favorable. S/p second dose of vitamin K and 1 unit of FFP yesterday. 2. Respiratory distress, in setting of pleural effusions, atelectasis, severe anemia and poor overall clinical status. Patient had to be put back on BiPAP yesterday afternoon, off BiPAP currently, will order chest x-ray. Continue nebulizer treatment. Lasix as needed If needed thoracentesis will be repeated. Monitor respiratory status Of note she did have bilateral thoracentesis at [facility] on her admission there last month 3. Severe pancreatitis with pseudocyst, currently on TPN and clear liquids. CAT scan of the abdomen and pelvis has been compared to the one done at [facility] approximately 3 weeks ago, cholecystostomy tube has been removed however there is concern as the patient has a new fluid collection in addition of the previous pseudocyst also previous pseudocyst seems to have increased in size and there is concern for possible infection. INR INR improved but patient with clinical status not very favorable for procedures, will continue to monitor. Continue Meropenem for now. 4. Hypotension: Based on records patient has been actually put on midodrine 5 mg p.o. tid due to ongoing hypotension even at discharge from [facility], Continue midodrine at current dosing Continue Abx. 5. Urinary retention, status post acute kidney injury at [facility] , renal function seems to be much better, Elder catheter in place. Repeat UA wnl , repeat Urine cx negative. 6. Hypernatremia, Nutrition: Slowly improving with TPN adjustments TPN to be adjusted per pharmacy to adjust daily based on electrolytes. Repleting electrolytes additionally as needed. 7. Sinus Tachycardia: Per report from [facility] patient has sinus tachycardia. Resolving Continue beta-blockers as tolerated. 8. Venous thromboembolism with episode of DVT, status post IVC filter 9. Mild coagulopathy: PTT wnl, Vitamin K and FFP as needed. Prophylaxis: Protonix for GI prophylaxis, SCDs and status post IVC filter for DVT prophylaxis Disposition: CT guided drainage of new pseudocyst by IR if possible or still needed Appreciate GI recs and cultures pending drainage, nuclear bleeding scan pending , I will discuss with GI next step once we get the bleeding scan. PT re-eval when more stable. I have concerns regarding the son's DPOA status. Apparently he had it signed this past weekend while the patient was inpatient and definitely not mentally sound enough to make decisions, the son himself based on discussion I had with him before does not seem to be adequate to make important medical decisions as his reasoning was mostly paranoid at times. I had a discussion with him again today to update him regarding his mother's poor clinical condition and poor prognosis. He again seems to be fixated on some events prior to this hospitalization and keeps wanting to discuss the fact that he is the only decision maker for the mother and does not want any other family member to be involved. He needs to be redirected throughout the conversation to stay on topic which is his mother's clinical condition and prognosis. Subjective 24 Hr Interval Summary Free Text/Dictation Patient seems to be calmer currently, son at bedside. She is placed on 2 L nasal cannula and maintaining oxygen saturation around 96% She is awaiting nuclear stress bleeding scan study Son at bedside is fully updated He is agreeable to maintain as needed morphine and low-dose as needed Xanax for comfort needs for pain control and anxiety and also understands that if the patient's vitals are unstable or respiratory status unstable these medications will be withheld Exam/Review of Systems Vital Signs Vitals Vital Signs Date Time Temp Pulse Resp B/P Pulse Ox O2 Delivery O2 Flow Rate FiO2 02/19/17 12:45 76 7/20/17 11:15 98 45 02/19/17 07:55 27 02/19/17 04:07 98.1 100/54 02/18/17 00:00 BIPAP 02/17/17 08:45 4.0 Intake and Output 02/18/17 02/18/17 02/19/17 15:00 23:00 07:00 Intake Total 50 ml 280 ml 1190 ml Output Total 350 ml 750 ml Balance 50 ml -70 ml 440 ml Exam Constitutional: alert, frail, oriented (x1), other (Seems to be a little more comfortable) Respiratory: diminished breath sounds (At bases, some expiratory wheeze also), other (Off BiPAP, on 2 L nasal cannula now) Cardiovascular: nl pulses, regular rate and rhythm Gastrointestinal: non-tender, soft Musculoskeletal: nl extremities to inspection, other (No edema clubbing or) Extremities: normal pulses 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, confused, lethargic, other (Generalized weakness) Results Result Diagram: 02/19/17 0702/19/17 0702 Results 24 hrs Laboratory Tests Test 02/19/17 06:09 02/19/17 07:02 02/19/17 09:22 Lab Scanned Report BLOOD TRANSFUSION White Blood Count 6.3 Red Blood Count 1.93 L Hemoglobin 8.7 #L Hematocrit 19.2 #L Mean Corpuscular Volume 99.5 Mean Corpuscular Hemoglobin 45.1 #H Mean Corpuscular Hemoglobin Concent 45.3 #H Red Cell Distribution Width 22.5 #H Platelet Count 102 L Mean Platelet Volume 14.1 H Neutrophils % 75.0 Band Neutrophils % 7.0 H Lymphocytes % 14.0 L Monocytes % 3.0 Eosinophils % 1.0 Nucleated Red Blood Cells % 1 H Neutrophils # 4.7 Lymphocytes # 0.9 Monocytes # 0.2 L Eosinophils # 0.1 Prothrombin Time 16.2 H Prothrombin Time Ratio 1.3 INR International Normalized Ratio 1.29 Activated Partial Thromboplast Time 35.9 H Sodium Level 157 H Potassium Level 3.7 Chloride Level 115 H Carbon Dioxide Level 30 Anion Gap 16 Blood Urea Nitrogen 42 H Creatinine 0.63 Glucose Level 69 #L Calcium Level 9.1 Phosphorus Level 4.1 Magnesium Level 2.2 Bedside Glucose 79 Medications Medications Current Medications Fluconazole (Diflucan) 200 mg DAILY PO Last administered on 02/19/17 09:07; Admin Dose 200 MG; Start 02/11/17 at 10:00 Metoprolol Tartrate (Lopressor) 25 mg BID PO Last administered on 02/19/17 09: 07; Admin Dose 25 MG; Start 02/11/17 at 21:00 Pantoprazole (Protonix Tab) 40 mg DAILY PO Last administered on 02/19/17 09:07 ; Admin Dose 40 MG; Start 02/12/17 at 09:00 Ondansetron HCl (Zofran Inj) 4 mg Q6H PRN IV NAUSEA AND/OR VOMITING Last administered on 02/13/17 00:36; Admin Dose 4 MG; Start 02/11/17 at 10:00 Acetaminophen (Tylenol Tab) 650 mg Q6H PRN PO PAIN LEVEL 1-3 OR FEVER; Start at 10:00 Morphine Sulfate (morphine) 2 mg Q4H PRN IV PAIN LEVEL 7-10 Last administered on 02/18/17 15:18; Admin Dose 2 MG; Start 02/11/17 at 10:00 Docusate Sodium (Colace) 100 mg Q12H PRN PO CONSTIPATION; Start 02/11/17 at 10: 00 Bisacodyl 10 mg 10 mg DAILY PRN [place] CONSTIPATION; Start 02/11/17 at 10:00 Meropenem/Sodium Chloride (Merrem 1 Gm/50 ml (Pmx)) 50 ml @ 200 mls/hr Q12 IVPB Last administered on 02/19/17 09:08; Admin Dose 200 MLS/HR; Start at 18:00 Miscellaneous Information (Pending Santyl Order For Wound Care) This patient prado... PRN PRN XX WOUND CARE; Start 02/11/17 at 19:00 Collagenase (Santyl) 1 applic DAILY TOP Last administered on 02/18/17 08:56; Admin Dose 1 APPLIC; Start 02/12/17 at 13:30 Diphenhydramine HCl 25 mg 25 mg Q6H PRN IV ITCHING Last administered on 14:34; Admin Dose 25 MG; Start 02/12/17 at 14:00 Total Parenteral Nutrition (Tpn) 1,000 ml @ 40 mls/hr Q24H IV Last administered on 02/19/17 01:00; Admin Dose 40 MLS/HR; Start 02/12/17 at 18:00 Midodrine (Proamatine) 5 mg BID PO Last administered on 02/19/17 09:08; Admin Dose 5 MG; Start 02/15/17 at 21:00 Mupirocin (Bactroban) 1 applic BID TOP Last administered on 02/18/17 20:49; Admin Dose 1 APPLIC; Start 02/15/17 at 21:00 BONIFACIO COWART Feb 19, 2017 13:00
[2017-02-19] MEDS: morphine 2 MG INJ IV PRN (13:03)
[2017-02-19] MEDS: BALSAM PERU/CASTOR OIL 60 GM TUBE TOP SCH (14:59)
--- NOTE | 2017-02-19 16:24 | PN ---
Date/Time of Note Date/Time of Note DATE: 02/19/17 TIME: 16:21 Assessment/Plan VTE Prophylaxis VTE Prophylaxis Intervention: SCD's Lines/Catheters IV Catheter Type (from [facility]): PICC Line Central line still needed: Yes Urinary Cath still in place: Yes Reason Cath still needed: urinary retention Assessment/Plan Assessment/Plan Anemia hemoglobin 8 * Refused EGD * Pancreatitis with Pancreatic pseudocyst/awaiting drainage * Coagulopathy * H/O tube cholecystostomy * H/O ERCP removal of stone with biliary stent * acute Respiratory failure improved Plan * awaiting nuclear scan result * Continue present regimen * Surgical management of pseudocyst * Endoscopic attempts at cystogastrostomy would require tertiary facility * IR drainage once coagulation permits * monitor hemoglobin and hematocrit daily and transfuse per protocol * further orders will depend on clinical course * case discussed with DR Hill Subjective 24 Hr Interval Summary Free Text/Dictation * Course reviewed with RN * Patient seen and examined * off bipap * awaiting nuclear scan * latest hemoglobin 8 Exam/Review of Systems Vital Signs Vitals Vital Signs Date Time Temp Pulse Resp B/P Pulse Ox O2 Delivery O2 Flow Rate FiO2 02/19/17 16:16 100 2.0 02/19/17 16:14 76 24 Nasal Cannula 02/19/17 13:00 21 02/19/17 04:07 98.1 100/54 Intake and Output 02/18/17 02/18/17 02/19/17 15:00 23:00 07:00 Intake Total 50 ml 280 ml 1190 ml Output Total 350 ml 750 ml Balance 50 ml -70 ml 440 ml Exam Constitutional: frail Neck: non-tender, supple Respiratory: clear to auscultation, normal air movement Cardiovascular: nl pulses, regular rate and rhythm Gastrointestinal: non-tender, soft Musculoskeletal: muscle weakness Extremities: normal pulses Skin: nl turgor, rash or lesions Lymph: nl lymph nodes Results Result Diagram: 02/19/17 0702 02/19/17 0702 Results 24 hrs Laboratory Tests Test 02/19/17 06:09 02/19/17 07:02 02/19/17 09:22 Lab Scanned Report BLOOD TRANSFUSION White Blood Count 6.3 Red Blood Count 1.93 L Hemoglobin 8.7 #L Hematocrit 19.2 #L Mean Corpuscular Volume 99.5 Mean Corpuscular Hemoglobin 45.1 #H Mean Corpuscular Hemoglobin Concent 45.3 #H Red Cell Distribution Width 22.5 #H Platelet Count 102 L Mean Platelet Volume 14.1 H Neutrophils % 75.0 Band Neutrophils % 7.0 H Lymphocytes % 14.0 L Monocytes % 3.0 Eosinophils % 1.0 Nucleated Red Blood Cells % 1 H Neutrophils # 4.7 Lymphocytes # 0.9 Monocytes # 0.2 L Eosinophils # 0.1 Prothrombin Time 16.2 H Prothrombin Time Ratio 1.3 INR International Normalized Ratio 1.29 Activated Partial Thromboplast Time 35.9 H Sodium Level 157 H Potassium Level 3.7 Chloride Level 115 H Carbon Dioxide Level 30 Anion Gap 16 Blood Urea Nitrogen 42 H Creatinine 0.63 Glucose Level 69 #L Calcium Level 9.1 Phosphorus Level 4.1 Magnesium Level 2.2 Bedside Glucose 79 Medications Medications Current Medications Fluconazole (Diflucan) 200 mg DAILY PO Last administered on 02/19/17 09:07; Admin Dose 200 MG; Start 02/11/17 at 10:00 Metoprolol Tartrate (Lopressor) 25 mg BID PO Last administered on 02/19/17 09: 07; Admin Dose 25 MG; Start 02/11/17 at 21:00 Pantoprazole (Protonix Tab) 40 mg DAILY PO Last administered on 02/19/17 09:07 ; Admin Dose 40 MG; Start 02/12/17 at 09:00 Ondansetron HCl (Zofran Inj) 4 mg Q6H PRN IV NAUSEA AND/OR VOMITING Last administered on 02/13/17 00:36; Admin Dose 4 MG; Start 02/11/17 at 10:00 Acetaminophen (Tylenol Tab) 650 mg Q6H PRN PO PAIN LEVEL 1-3 OR FEVER; Start at 10:00 Morphine Sulfate (morphine) 2 mg Q4H PRN IV PAIN LEVEL 7-10 Last administered on 02/19/17 13:03; Admin Dose 2 MG; Start 02/11/17 at 10:00 Docusate Sodium (Colace) 100 mg Q12H PRN PO CONSTIPATION; Start 02/11/17 at 10: 00 Bisacodyl 10 mg 10 mg DAILY PRN [place] CONSTIPATION; Start 02/11/17 at 10:00 Meropenem/Sodium Chloride (Merrem 1 Gm/50 ml (Pmx)) 50 ml @ 200 mls/hr Q12 IVPB Last administered on 02/19/17 09:08; Admin Dose 200 MLS/HR; Start at 18:00 Miscellaneous Information (Pending Santyl Order For Wound Care) This patient prado... PRN PRN XX WOUND CARE; Start 02/11/17 at 19:00 Collagenase (Santyl) 1 applic DAILY TOP Last administered on 02/19/17 14:59; Admin Dose 1 APPLIC; Start 02/12/17 at 13:30 Diphenhydramine HCl 25 mg 25 mg Q6H PRN IV ITCHING Last administered on 14:34; Admin Dose 25 MG; Start 02/12/17 at 14:00 Total Parenteral Nutrition (Tpn) 1,000 ml @ 40 mls/hr Q24H IV Last administered on 02/19/17 01:00; Admin Dose 40 MLS/HR; Start 02/12/17 at 18:00 Midodrine (Proamatine) 5 mg BID PO Last administered on 02/19/17 09:08; Admin Dose 5 MG; Start 02/15/17 at 21:00 Mupirocin (Bactroban) 1 applic BID TOP Last administered on 02/19/17 14:59; Admin Dose 1 APPLIC; Start 02/15/17 at 21:00 Alprazolam (Xanax) 0.25 mg Q12H PRN PO ANXIETY; Start 02/19/17 at 14:00 LUZMARIA SPAIN NP Feb 19, 2017 16:24
[2017-02-19] MEDS: DIPHENHYDRAMINE 50 MG INJ IV PRN (20:44)
[2017-02-19] MEDS: ALPRAZOLAM 0.25 MG TAB PO PRN (23:07)
[2017-02-20] VITALS (18 sets, daily range): BP systolic 87–111; BP diastolic 50–56; PULSE 63–92; RESP 12–36
[2017-02-20] MEDS: ALBUTEROL/IPRATROPIUM (NEB) 3 ML AMP HHN SCH ×4 (00:26→22:22)
[2017-02-20] MEDS ORDERED: FUROSEMIDE 20 MG INJ IV ONE (01:30)
[2017-02-20] MEDS: TPN 1,000 ML IV SCH ×2 (02:25→18:57)
[2017-02-20] MEDS: DIPHENHYDRAMINE 50 MG INJ IV PRN (05:38)
[2017-02-20 06:51] LABS: ADD SCAN DIFF NO
[2017-02-20 07:01] LABS: ABNORMAL IP MESSAGE 1; MEAN CORPUSCULAR HEMOGLOBIN 46.3 pg (29.0-33.0); MEAN CORPUSCULAR VOLUME 100.5 fl (82.0-101.0); MEAN PLATELET VOLUME 13.9 fl (7.4-10.4); PLATELET COUNT 97 10^3/UL (140-415); RED BLOOD COUNT 1.88 10^6/ul (4.20-5.40); RED CELL DISTRIBUTION WIDTH 24.4 % (11.5-14.5); WHITE BLOOD COUNT 6.2 10^3/ul (4.8-10.8)
[2017-02-20 07:18] LABS: CALCIUM 8.9 mg/dl (8.4-10.2); CREATININE 0.62 mg/dl (0.44-1.00); MAGNESIUM 2.2 mg/dl (1.7-2.5); PHOSPHORUS 4.4 mg/dl (2.5-4.9)
[2017-02-20] MEDS: COLLAGENASE 30 GM TUBE TOP SCH (09:00)
[2017-02-20] MEDS: MEROPENEM 1 GM/50ML(PMX) 50 ML IVPB SCH ×2 (09:00→20:26)
[2017-02-20] MEDS: FLUCONAZOLE 200 MG TAB PO SCH (09:52)
[2017-02-20] MEDS: MIDODRINE 5 MG TAB PO SCH ×2 (09:52→20:25)
[2017-02-20] MEDS: PANTOPRAZOLE (EC) 40 MG TAB PO SCH (09:52)
[2017-02-20] MEDS: METOPROLOL 25 MG TAB PO SCH ×2 (09:53→20:15)
--- NOTE | 2017-02-20 10:08 | PN ---
Date/Time of Note Date/Time of Note DATE: 02/20/17 TIME: 10:04 Assessment/Plan VTE Prophylaxis VTE Prophylaxis Intervention: SCD's Lines/Catheters IV Catheter Type (from [facility]): PICC Line Central line still needed: Yes Urinary Cath still in place: Yes Reason Cath still needed: urinary retention Assessment/Plan Assessment/Plan * Acute respiratory failure management c/o pulmonary * Anemia hemoglobin 8.7 * Refused EGD * Pancreatitis with Pancreatic pseudocyst/awaiting drainage * Coagulopathy * H/O tube cholecystostomy * H/O ERCP removal of stone with biliary stent * Plan * awaiting nuclear scan result * Continue present regimen * Surgical management of pseudocyst * Endoscopic attempts at cystogastrostomy would require tertiary facility * IR drainage once coagulation permits * monitor hemoglobin and hematocrit daily and transfuse per protocol * further orders will depend on clinical course * case discussed with DR Hill Subjective 24 Hr Interval Summary Free Text/Dictation * Course reviewed with RN * Patient seen and examined * Patient is tachypneic, * latest hemoglobin 8.7 Exam/Review of Systems Vital Signs Vitals Vital Signs Date Time Temp Pulse Resp B/P Pulse Ox O2 Delivery O2 Flow Rate FiO2 02/20/17 08:35 89 02/20/17 08:02 97.3 36 111/53 96 02/20/17 07:52 2.0 02/20/17 07:52 Nasal Cannula 02/20/17 00:37 45 Intake and Output 02/19/17 02/19/17 02/20/17 15:00 23:00 07:00 Intake Total 50 ml 590 ml 530 ml Output Total 1000 ml 1500 ml Balance 50 ml -410 ml -970 ml Exam Constitutional: frail Neck: non-tender Respiratory: crackles/rales, diminished breath sounds, intercostal retraction, labored breathing Cardiovascular: nl pulses, regular rate and rhythm Gastrointestinal: bowel sounds, distended, soft, No rebound or guarding Musculoskeletal: muscle weakness, swelling Extremities: edema Neurological: confused Skin: ecchymosis Lymph: nl lymph nodes Results Result Diagram: 02/20/17 0624 02/20/17 0624 Results 24 hrs Laboratory Tests Test 02/20/17 06:24 White Blood Count 6.2 Red Blood Count 1.88 L Hemoglobin 8.7 L Hematocrit 18.9 L Mean Corpuscular Volume 100.5 Mean Corpuscular Hemoglobin 46.3 H Mean Corpuscular Hemoglobin Concent 46.0 H Red Cell Distribution Width 24.4 H Platelet Count 97 L Mean Platelet Volume 13.9 H Neutrophils % Lymphocytes % Monocytes % Eosinophils % Neutrophils # Lymphocytes # Monocytes # Eosinophils # Sodium Level 157 H Potassium Level 3.0 L Chloride Level 116 H Carbon Dioxide Level 29 Anion Gap 15 Blood Urea Nitrogen 36 H Creatinine 0.62 Glucose Level 99 Calcium Level 8.9 Phosphorus Level 4.4 Magnesium Level 2.2 Medications Medications Current Medications Fluconazole (Diflucan) 200 mg DAILY PO Last administered on 02/20/17 09:52; Admin Dose 200 MG; Start 02/11/17 at 10:00 Metoprolol Tartrate (Lopressor) 25 mg BID PO Last administered on 02/20/17 09: 53; Admin Dose 25 MG; Start 02/11/17 at 21:00 Pantoprazole (Protonix Tab) 40 mg DAILY PO Last administered on 02/20/17 09:52 ; Admin Dose 40 MG; Start 02/12/17 at 09:00 Ondansetron HCl (Zofran Inj) 4 mg Q6H PRN IV NAUSEA AND/OR VOMITING Last administered on 02/13/17 00:36; Admin Dose 4 MG; Start 02/11/17 at 10:00 Acetaminophen (Tylenol Tab) 650 mg Q6H PRN PO PAIN LEVEL 1-3 OR FEVER; Start at 10:00 Morphine Sulfate (morphine) 2 mg Q4H PRN IV PAIN LEVEL 7-10 Last administered on 02/19/17 13:03; Admin Dose 2 MG; Start 02/11/17 at 10:00 Docusate Sodium (Colace) 100 mg Q12H PRN PO CONSTIPATION; Start 02/11/17 at 10: 00 Bisacodyl 10 mg 10 mg DAILY PRN DE CONSTIPATION; Start 02/11/17 at 10:00 Meropenem/Sodium Chloride (Merrem 1 Gm/50 ml (Pmx)) 50 ml @ 200 mls/hr Q12 IVPB Last administered on 02/19/17 20:31; Admin Dose 200 MLS/HR; Start at 18:00 [facility]isc[facility] This patient prado... PRN PRN XX WOUND CARE; Start 02/11/17 at 19:00 Collagenase (Santyl) 1 applic DAILY TOP Last administered on 02/19/17 14:59; Admin Dose 1 APPLIC; Start 02/12/17 at 13:30 Diphenhydramine HCl 25 mg 25 mg Q6H PRN IV ITCHING Last administered on 05:38; Admin Dose 25 MG; Start 02/12/17 at 14:00 Total Parenteral Nutrition (Tpn) 1,000 ml @ 40 mls/hr Q24H IV Last administered on 02/20/17 02:25; Admin Dose 40 MLS/HR; Start 02/12/17 at 18:00 Midodrine (Proamatine) 5 mg BID PO Last administered on 02/20/17 09:52; Admin Dose 5 MG; Start 02/15/17 at 21:00 Mupirocin (Bactroban) 1 applic BID TOP Last administered on 02/19/17 20:31; Admin Dose 1 APPLIC; Start 02/15/17 at 21:00 Alprazolam (Xanax) 0.25 mg Q12H PRN PO ANXIETY Last administered on 02/19/17 23:07; Admin Dose 0.25 MG; Start 02/19/17 at 14:00 LUZMARIA SPAIN NP Feb 20, 2017 10:08
[2017-02-20 11:07] LABS: AADO2 Arterial 196.2 mmHg (7.0-24.0); Allen Test ACCEPTAB; Arterial Base Excess 1.5 mmol/L (-3.0-3); Arterial COHb 0.3 % (0.0-3.0); Arterial HCO3 24.9 mmol/L (22.0-26.0); Arterial MetHb 0.5 % (0.0-1.5); Blood Gas IEPAP 16/6; Blood Gas PS 10; MODE MASK - BIPAP
[2017-02-20] MEDS ORDERED: POTASSIUM CHLORIDE 250 ML IVPB ONE (11:30)
--- NOTE | 2017-02-20 11:36 | PN ---
Date/Time of Note Date/Time of Note DATE: 02/20/17 TIME: 11:11 Assessment/Plan VTE Prophylaxis VTE Prophylaxis Intervention: SCD's Lines/Catheters IV Catheter Type (from Nrsg): PICC Line Central line still needed: Yes (For IV access and TPN) Urinary Cath still in place: Yes Reason Cath still needed: other (indicate) Assessment/Plan Assessment/Plan 86 yo female with: 1. Acute on chronic anemia with again drop of hemoglobin to 6.0 this AM s/p transfusion of 2 units of packed red blood cells and 1 unit of FFP. Bleeding scan pending, has not able to completed due to respiratory distress and needs for intermittent BiPAP GI re-eval pending No signs of acute bleeding so far however patient does have positive fecal occult blood. Appreciate GI consult, patient and her son declined EGD prior. Appreciate recommendations of Dr Hannah, may still needs CT guided drainage of 2nd pseudocyst by IR, patient currently mostly n.p.o. and INR INR has been better however patient with respiratory distress not a candidate for IR procedure currently. S/p second dose of vitamin K and 1 unit of FFP. 2. Respiratory distress, in setting of pleural effusions, atelectasis, severe anemia and poor overall clinical status. Patient had to be put back on BiPAP yesterday afternoon, off BiPAP currently, will order chest x-ray. Continue nebulizer treatment. Lasix reordered scheduled, appreciate recommendation from Dr. Treviño, right thoracentesis per Pulmonary today. CXR pending . Monitor respiratory status. Transferred to ICU if any further deterioration Of note she did have bilateral thoracentesis at [facility] on her admission there last month 3. Severe pancreatitis with pseudocyst, currently on TPN and clear liquids. CAT scan of the abdomen and pelvis has been compared to the one done at [facility] approximately 3 weeks ago, cholecystostomy tube has been removed however there is concern as the patient has a new fluid collection in addition of the previous pseudocyst also previous pseudocyst seems to have increased in size and there is concern for possible infection. INR improved but patient with clinical status not very favorable for procedures , will continue to monitor. Continue Meropenem for now. 4. Hypotension: Based on records patient has been actually put on midodrine 5 mg p.o. tid due to ongoing hypotension even at discharge from [facility], Continue midodrine at current dosing Continue Abx. 5. Urinary retention, status post acute kidney injury at [facility] , renal function seems to be much better, Elder catheter in place. Repeat UA wnl , repeat Urine cx negative. 6. Hypernatremia, Nutrition: Slowly improving with TPN adjustments TPN to be adjusted per pharmacy to adjust daily based on electrolytes. Repleting electrolytes additionally as needed. 7. Sinus Tachycardia: Per report from [facility] patient has sinus tachycardia. Resolving Continue beta-blockers as tolerated. 8. Venous thromboembolism with episode of DVT, status post IVC filter 9. Mild coagulopathy: PTT wnl, Vitamin K and FFP as needed. Prophylaxis: Protonix for GI prophylaxis, SCDs and status post IVC filter for DVT prophylaxis Disposition: CT guided drainage of new pseudocyst by IR if possible or still needed Appreciate GI recs and cultures pending drainage, nuclear bleeding scan pending , I will discuss with GI next step once we get the bleeding scan. PT re-eval when more stable. Son, MAX, at bedside updated today, he has voiced that he wants to talk to his mother more as they may need to reconsider goals of care, he also seems to be open to reconsider CODE STATUS and possibly comfort measures but keeps insisting that he needs to talk to his mother Subjective 24 Hr Interval Summary Free Text/Dictation Patient was on 2 L nasal cannula overnight setting 99% and this was confirmed with son at the bedside and on vital signs, however this morning she went into respiratory distress again, she is back on BiPAP, ABG pending and pulmonary consult has been placed with Dr. Treviño, who has seen the patient, thoracentesis right pleural effusion to be ordered, patient on Lasix which is to be resumed despite electrolytes abnormalities. She is also on TPN and she is status post post 2 units of packed red blood cells and 1 unit of FFP 2 days ago with diuresis at that time The son Jesus at the bedside has been updated, he is agreeable with the plan of care today, he is also conceding to the fact that he will try to discuss goals of care further with his mother as he understands that her clinical status is fair at best, her prognosis is also fair at best if not poor. Exam/Review of Systems Vital Signs Vitals Vital Signs Date Time Temp Pulse Resp B/P Pulse Ox O2 Delivery O2 Flow Rate FiO2 02/20/17 10:27 90 99 45 02/20/17 08:02 97.3 36 111/53 02/20/17 07:52 2.0 02/20/17 07:52 Nasal Cannula Intake and Output 02/19/17 02/19/17 02/20/17 15:00 23:00 07:00 Intake Total 50 ml 590 ml 530 ml Output Total 1000 ml 1500 ml Balance 50 ml -410 ml -970 ml Exam Constitutional: alert, distress (Respiratory), frail Respiratory: diminished breath sounds (Bases bilaterally), other (On BiPAP this AM) Cardiovascular: nl pulses, regular rate and rhythm Gastrointestinal: non-tender, soft Genitourinary - Female: other (Elder catheter in place) Musculoskeletal: muscle tone (Poor), other (Minimal edema, no clubbing or cyanosis) Extremities: normal pulses Neurological: IT ARCHITECT II-XII intact, confused, other (Generalized weakness, on BiPAP) Results Result Diagram: 02/20/1724 02/20/17 0624 Results 24 hrs Laboratory Tests Test 02/20/17 06:24 02/20/17 10:14 White Blood Count 6.2 Red Blood Count 1.88 L Hemoglobin 8.7 L Hematocrit 18.9 L Mean Corpuscular Volume 100.5 Mean Corpuscular Hemoglobin 46.3 H Mean Corpuscular Hemoglobin Concent 46.0 H Red Cell Distribution Width 24.4 H Platelet Count 97 L Mean Platelet Volume 13.9 H Neutrophils % Lymphocytes % Monocytes % Eosinophils % Neutrophils # Lymphocytes # Monocytes # Eosinophils # Sodium Level 157 H Potassium Level 3.0 L Chloride Level 116 H Carbon Dioxide Level 29 Anion Gap 15 Blood Urea Nitrogen 36 H Creatinine 0.62 Glucose Level 99 Calcium Level 8.9 Phosphorus Level 4.4 Magnesium Level 2.2 Blood Gas Specimen Source Blood arterial Arterial Blood Date Drawn 02/20/2017 10:55:06 AM Arterial Blood pH (Temp corrected) 7.473 H Arterial Blood pCO2 (Temp correct) 34.8 L Arterial Blood pO2 (Temp corrected) 85.1 Arterial Blood HCO3 24.9 Arterial Blood Base Excess 1.5 Arterial Blood Oxygen Saturation 95.8 Shreyas Test ACCEPTAB Arterial Blood Gas Puncture Site Left Radial Arterial Blood Carboxyhemoglobin 0.3 Arterial Blood Methemoglobin 0.5 Blood Gas A-a O2 Differential 196.2 H Oxyhemoglobin Percent 95.0 Total Hemoglobin 10.0 L Blood Gas Temperature 37.0 Blood Gas Respiration Rate 16.0 Blood Gas Actual Respiration Rate 28 Blood Gas Modality MASK - BIPAP FiO2 45.0 Blood Gas Pressure Support 10 Blood Gas IPAP/EPAP Ratio 16/6 Blood Gas Notified Whom M.D. Blood Gas Notified Time 02/20/2017 11:06:59 AM Medications Medications Current Medications Fluconazole (Diflucan) 200 mg DAILY PO Last administered on 02/20/17 09:52; Admin Dose 200 MG; Start 02/11/17 at 10:00 Metoprolol Tartrate (Lopressor) 25 mg BID PO Last administered on 02/20/17 09: 53; Admin Dose 25 MG; Start 02/11/17 at 21:00 Pantoprazole (Protonix Tab) 40 mg DAILY PO Last administered on 02/20/17 09:52 ; Admin Dose 40 MG; Start 02/12/17 at 09:00 Ondansetron HCl (Zofran Inj) 4 mg Q6H PRN IV NAUSEA AND/OR VOMITING Last administered on 02/13/17 00:36; Admin Dose 4 MG; Start 02/11/17 at 10:00 Acetaminophen (Tylenol Tab) 650 mg Q6H PRN PO PAIN LEVEL 1-3 OR FEVER; Start at 10:00 Morphine Sulfate (morphine) 2 mg Q4H PRN IV PAIN LEVEL 7-10 Last administered on 02/19/17 13:03; Admin Dose 2 MG; Start 02/11/17 at 10:00 Docusate Sodium (Colace) 100 mg Q12H PRN PO CONSTIPATION; Start 02/11/17 at 10: 00 Bisacodyl 10 mg 10 mg DAILY PRN NC CONSTIPATION; Start 02/11/17 at 10:00 Meropenem/Sodium Chloride (Merrem 1 Gm/50 ml (Pmx)) 50 ml @ 200 mls/hr Q12 IVPB Last administered on 02/19/17 20:31; Admin Dose 200 MLS/HR; Start at 18:00 [facility] This patient prado... PRN PRN XX WOUND CARE; Start 02/11/17 at 19:00 Collagenase (Santyl) 1 applic DAILY TOP Last administered on 02/19/17 14:59; Admin Dose 1 APPLIC; Start 02/12/17 at 13:30 Diphenhydramine HCl 25 mg 25 mg Q6H PRN IV ITCHING Last administered on 05:38; Admin Dose 25 MG; Start 02/12/17 at 14:00 Total Parenteral Nutrition (Tpn) 1,000 ml @ 40 mls/hr Q24H IV Last administered on 02/20/17 02:25; Admin Dose 40 MLS/HR; Start 02/12/17 at 18:00 Midodrine (Proamatine) 5 mg BID PO Last administered on 02/20/17 09:52; Admin Dose 5 MG; Start 02/15/17 at 21:00 Mupirocin (Bactroban) 1 applic BID TOP Last administered on 02/19/17 20:31; Admin Dose 1 APPLIC; Start 02/15/17 at 21:00 Alprazolam 0.25 mg 0.25 mg Q12H PRN PO ANXIETY Last administered on 02/19/17 23:07; Admin Dose 0.25 MG; Start 02/19/17 at 14:00 Potassium Chloride (KCl 40 MEQ/250 ML NS) 250 ml @ 62.5 mls/hr ONCE ONCE IVPB ; Start 02/20/17 at 11:30; Stop 02/20/17 at 15:29; Status UNV Procedures Procedures Chest x-ray pending, ABG pending BONIFACIO COWART Feb 20, 2017 11:21
[2017-02-20] MEDS: FUROSEMIDE 20 MG INJ IV SCH ×2 (11:51→18:43)
[2017-02-20] MEDS: MUPIROCIN 2% 22 GM OINT TOP SCH ×2 (12:05→20:26)
[2017-02-20] MEDS: BALSAM PERU/CASTOR OIL 60 GM TUBE TOP SCH (12:06)
[2017-02-20 14:00] LABS: EOSINOPHILS # 0.1 10^3/ul (0.0-0.5); LYMPHOCYTES # 1.4 10^3/ul (0.8-2.9); MONOCYTE # 0.1 10^3/ul (0.3-0.9); NEUTROPHIL # 4.7 10^3/ul (1.6-7.5)
[2017-02-20 14:16] LABS: BASOPHILS % 0.5 % (0.0-2.0)
--- NOTE | 2017-02-20 14:18 | RADRPT ---
PROCEDURE: XR Chest. CLINICAL INDICATION: respiratory distress TECHNIQUE: Single frontal view of the chest was obtained COMPARISON: Chest x-ray 02/16/2017 FINDINGS: Right PICC line is stable position, terminating near the cavoatrial junction. There are low lung vo lumes. The cardiac silhouette is moderately enlarged, unchanged. There are atherosclerotic calcifications of the thoracic aorta. There is increased pulmonary vascular congestion. Hazy opacities in the mid and lower lung wells bilaterally have not changed significantly as compar ed to prior study and most likely represent small moderate bilateral pleural effusions with adjacent atelectasis. Underlying consolidation cannot be completely excluded. No pneumothorax is identified . The osseous structures, as visualized, are unchanged. IMPRESSION: 1. Stable right PICC line. 2. Moderate cardiomegaly with interval increase in pulmonary vascular congestion. 3. Persistent hazy opacities in the mid and lower lung wells bilaterally, stable and likely represe nting small to moderate bilateral pleural effusions with adjacent atelectasis. Underlying consolida tion cannot be excluded. RPTAT: PP Physician Stefan Date Time Electronically viewed and signed by Physician Stefan on 02/20/2017 14:18 /
[2017-02-20 14:24] LABS: HEMATOCRIT 27.8 % (37.0-47.0); HEMOGLOBIN 8.9 g/dl (12.0-16.0)
[2017-02-20] MEDS ORDERED: LIDOCAINE 1% (MPF) 5 ML VIAL ONE (16:54)
--- NOTE | 2017-02-20 18:06 | RADRPT ---
PROCEDURE: XR Chest. CLINICAL INDICATION: Post thoracentesis. TECHNIQUE: Portable AP view of the chest was obtained. COMPARISON: 02/20/2017 and 06/1943 FINDINGS: The cardiomediastinal silhouette is enlarged. Improved aeration of the right lower thorax with decr eased atelectasis and edema as well as a right . Residual left pleural effusion, left lower lo be compressive atelectasis and pulmonary vascular congestion again noted, not significantly changed. There is no evidence of pneumothorax. Right-sided PICC remains in good position the distal tip pr ojecting at the cavoatrial junction. Diffuse demineralization is again seen without evidence of acu te osseous abnormality. RPTAT:HJJR IMPRESSION: 1. Improved aeration of the right thorax with decreased pleural effusion and atelectasis consistent with successful thoracentesis, no pneumothorax is present. 2. Cardiac silhouette enlargement and chronic congestive heart failure pattern not significantly ch anged from earlier the same day. 3. Right-sided PICC remains in good radiographic position Physician Tootie Date Time Electronically viewed and signed by Physician Tootie on 02/20/2017 18:05 /
--- NOTE | 2017-02-20 18:09 | RADRPT ---
PROCEDURE: US guided right thoracentesis. CLINICAL INDICATION: Shortness of breath. Right pleural effusion. TECHNIQUE: Prior to the procedure, informed consent was obtained. The risks, benefits, and alternatives were e xplained to the patient or the patient's family, including but not limited to bleeding, infection, p ain, visceral or vascular damage, shock, pneumothorax, chest tube placement, air embolism, and . The patient or the patient's family understood the risks and the alternatives and wished to proce ed with the study. Informed written consent was obtained. A procedural pause was performed. The patient's name, date of , and procedure to be performed were verified. Ultrasound of the right hemithorax was performed in the axial and sagittal planes. A right pleural e ffusion is noted. Utilizing ultrasound guidance, optimal location for entry to the pleural cavity wa s ascertained. The overlying skin was prepped and draped in the usual sterile fashion. Approximate ly 10 ml of 1% Xylocaine was injected locally for pain control. Using ultrasound guidance, a 5-Fren Yueh catheter was introduced into the right pleural space without difficulty. Fluid was aspirated . COMPARISON: None. FINDINGS: Initial ultrasound demonstrates fluid in the right pleural space. Approximately 0.300 liters of ser ous fluid was aspirated and sent to the laboratory. IMPRESSION: 1. Satisfactory ultrasound-guided right thoracentesis. RPTAT: QQ .Joel Diamond MD, Date Time Electronically viewed and signed by .Joel Diamond MD, on 02/20/2017 18:09 .R/
--- NOTE | 2017-02-20 18:27 | CONS ---
Date/Time of Note Date/Time of Note DATE: 02/20/17 TIME: 18:17 Assessment/Plan Assessment/Plan Chief Complaint/Hosp Course Assessment 1. Recent severe pancreatitis completed by pseudocyst pending drainage. 2. Anemia of unclear etiology currently not stable for EGD given severe hypoxemia, she would require intubation and mechanical ventilation 3. Hypoxemic respiratory failure combination of volume overload and right pleural effusion. Patient is likely third spacing fluid from ongoing inflammatory process of her pancreas. Of note she has had thoracentesis performed in the past. 4. Hypotension possibly secondary to ongoing sepsis/inflammatory process. 5. Nutrition continues TPN. 6. Tachycardia likely secondary to ongoing abdominal condition. 7. History of thromboembolic disease status post IVC filter Plan 1. Ultrasound-guided thoracentesis with pleural fluid studies 2. I would increase diuretics. 3. Consider jejunostomy tube for feeding and DC TPN if possible. This would help decrease the amount of fluid she has on board. 4. Continue DVT and GI prophylaxis 5. I did extensive discussion with patient's son at bedside he wishes to continue all aggressive measures including intubation mechanical ventilation if necessary for short-term. Problems: Consultation Date/Type/Reason Admit Date/Time Date of Consultation: Feb 20, 2017 Reason for Consultation Hypoxemic respiratory failure Hx of Present Illness 86-year-old lady with multiple medical problems including recent severe pancreatitis pseudocyst on TPN now with progressive hypoxemic respiratory failure requiring noninvasive positive pressure ventilation and evidence of significant anemia from blood work. Chest x-ray was performed demonstrated congestive cardiac failure with possible right pleural effusion. Patient continues to be followed by general surgery no surgical intervention planned at present. Patient is intermittently somnolent unable to give me further details. Patient's son is at bedside and we have had an extensive discussion. Currently unable to perform Constitutional: requiring IVF Eyes: no complaints ENT: no complaints Respiratory: shortness of breath Cardiovascular: other (Tachycardia) Gastrointestinal: pain (Upper, mild) Genitourinary: no complaints, other (Elder catheter) Musculoskeletal: other (Generalized weakness) Neurologic: no complaints Endocrine: no complaints Lymphatic: no complaints Psychological: no complaints Past Medical History Pancreatitis Pseudocyst Hypoxemic respiratory failure Medical History: deep vein thrombosis, gallstones Past Surgical History Past Surgical Hx: endoscopy, other (ivc filter,s/p tube cholecystostomy) Social History Alcohol Use: none Smoking Status: Never smoker Exam/Review of Systems Vital Signs Vitals Vital Signs Date Time Temp Pulse Resp B/P Pulse Ox O2 Delivery O2 Flow Rate FiO2 02/20/17 16:54 65 02/20/17 16:20 97 2.0 02/20/17 15:59 45 02/20/17 12:00 97.3 12 102/55 02/20/17 07:52 Nasal Cannula Intake and Output 02/19/17 02/19/17 02/20/17 15:00 23:00 07:00 Intake Total 50 ml 590 ml 530 ml Output Total 1000 ml 1500 ml Balance 50 ml -410 ml -970 ml Exam GENERAL: Elderly lady on mechanical ventilation no acute distress but wearing full face mask for BiPAP. Evidence of trauma from prior facemask for BiPAP therapy. VITAL SIGNS: per chart NECK: Supple. No JVD or lymphadenopathy. CARDIAC EXAM: S1, S2. No added sounds or murmurs. CHEST: Diminished air entry both lung wells right greater than left ABDOMEN: Soft, nontender. No guarding or rebound. EXTREMITIES: No cyanosis, clubbing or edema +1 NEUROLOGIC: Generalized weakness. Results Chest x-ray FINDINGS: There is air space disease bilaterally in the mid and lower lung zones consistent with pulmonary edema or bilateral pneumonia. There is a right arm PICC line with the tip in the superior vena cava. The heart is enlarged. There is calcification in the aorta consistent with atherosclerosis. There are small bilateral pleural effusions. There is no pneumothorax. IMPRESSION: 1. Slightly worse appearance of the lungs when compared with 02/12/2017. 2. No other change. Result Diagram: 02/20/17 0624 02/20/17 0624 Results 24 hrs Laboratory Tests Test 02/20/17 06:24 02/20/17 10:14 White Blood Count 6.2 Red Blood Count 1.88 L Hemoglobin 8.9 L Hematocrit 27.8 #L Mean Corpuscular Volume 100.5 Mean Corpuscular Hemoglobin 46.3 H Mean Corpuscular Hemoglobin Concent 46.0 H Red Cell Distribution Width 24.4 H Platelet Count 97 L Mean Platelet Volume 13.9 H Neutrophils % 75.0 Band Neutrophils % 1.0 Lymphocytes % 22.0 Monocytes % 1.0 Eosinophils % 1.0 Basophils % 0.5 Neutrophils # 4.7 Lymphocytes # 1.4 Monocytes # 0.1 L Eosinophils # 0.1 Basophils # 0.0 Nucleated Red Blood Cells # 0.0 Sodium Level 157 H Potassium Level 3.0 L Chloride Level 116 H Carbon Dioxide Level 29 Anion Gap 15 Blood Urea Nitrogen 36 H Creatinine 0.62 Glucose Level 99 Calcium Level 8.9 Phosphorus Level 4.4 Magnesium Level 2.2 Blood Gas Specimen Source Blood arterial Arterial Blood Date Drawn 02/20/2017 10:55:06 AM Arterial Blood pH (Temp corrected) 7.473 H Arterial Blood pCO2 (Temp correct) 34.8 L Arterial Blood pO2 (Temp corrected) 85.1 Arterial Blood HCO3 24.9 Arterial Blood Base Excess 1.5 Arterial Blood Oxygen Saturation 95.8 Shreyas Test ACCEPTAB Arterial Blood Gas Puncture Site Left Radial Arterial Blood Carboxyhemoglobin 0.3 Arterial Blood Methemoglobin 0.5 Blood Gas A-a O2 Differential 196.2 H Oxyhemoglobin Percent 95.0 Total Hemoglobin 10.0 L Blood Gas Temperature 37.0 Blood Gas Respiration Rate 16.0 Blood Gas Actual Respiration Rate 28 Blood Gas Modality MASK - BIPAP FiO2 45.0 Blood Gas Pressure Support 10 Blood Gas IPAP/EPAP Ratio 16/6 Blood Gas Notified Whom Billy Blood Gas Notified Time 02/20/2017 11:06:59 AM Medications Medications Current Medications Fluconazole (Diflucan) 200 mg DAILY PO Last administered on 02/20/17 09:52; Admin Dose 200 MG; Start 02/11/17 at 10:00 Metoprolol Tartrate (Lopressor) 25 mg BID PO Last administered on 02/20/17 09: 53; Admin Dose 25 MG; Start 02/11/17 at 21:00 Pantoprazole (Protonix Tab) 40 mg DAILY PO Last administered on 02/20/17 09:52 ; Admin Dose 40 MG; Start 02/12/17 at 09:00 Ondansetron HCl (Zofran Inj) 4 mg Q6H PRN IV NAUSEA AND/OR VOMITING Last administered on 02/13/17 00:36; Admin Dose 4 MG; Start 02/11/17 at 10:00 Acetaminophen (Tylenol Tab) 650 mg Q6H PRN PO PAIN LEVEL 1-3 OR FEVER; Start at 10:00 Morphine Sulfate (morphine) 2 mg Q4H PRN IV PAIN LEVEL 7-10 Last administered on 02/19/17 13:03; Admin Dose 2 MG; Start 02/11/17 at 10:00 Docusate Sodium (Colace) 100 mg Q12H PRN PO CONSTIPATION; Start 02/11/17 at 10: 00 Bisacodyl 10 mg 10 mg DAILY PRN [place] CONSTIPATION; Start 02/11/17 at 10:00 Meropenem/Sodium Chloride (Merrem 1 Gm/50 ml (Pmx)) 50 ml @ 200 mls/hr Q12 IVPB Last administered on 02/20/17 09:00; Admin Dose 200 MLS/HR; Start at 18:00 Miscellaneous Information (Pending Santyl Order For Wound Care) This patient prado... PRN PRN XX WOUND CARE; Start 02/11/17 at 19:00 Collagenase (Santyl) 1 applic DAILY TOP Last administered on 02/20/17 09:00; Admin Dose 1 APPLIC; Start 02/12/17 at 13:30 Diphenhydramine HCl 25 mg 25 mg Q6H PRN IV ITCHING Last administered on 05:38; Admin Dose 25 MG; Start 02/12/17 at 14:00 Total Parenteral Nutrition (Tpn) 1,000 ml @ 40 mls/hr Q24H IV Last administered on 02/20/17 02:25; Admin Dose 40 MLS/HR; Start 02/12/17 at 18:00 Midodrine (Proamatine) 5 mg BID PO Last administered on 02/20/17 09:52; Admin Dose 5 MG; Start 02/15/17 at 21:00 Mupirocin (Bactroban) 1 applic BID TOP Last administered on 02/20/17 12:05; Admin Dose 1 APPLIC; Start 02/15/17 at 21:00 Alprazolam (Xanax) 0.25 mg Q12H PRN PO ANXIETY Last administered on 02/19/17 23:07; Admin Dose 0.25 MG; Start 02/19/17 at 14:00 SLA[facility]BRIDE MD[facility] Feb 20, 2017 18:27
[2017-02-20 18:39] LABS: FLUID GLUCOSE 98 mg/dl; FLUID LD 427 U/L; FLUID TOTAL PROTEIN < 2.0 g/dl; FLUID TYPE THORACENTESIS FLUID
[2017-02-20 18:40] LABS: FLUID TYPE THORACENTESIS FLUID
[2017-02-20 20:49] LABS: FLD CLARITY SLIGHTLY HAZY; FLD COLOR YELLOW; FLD TYPE THORACENTHESIS
[2017-02-20 20:50] LABS: FLD MN% 56.1 %; FLD PMN% 43.9 %; FLD RBC 2 /uL; FLD WBC 369 /cmm
[2017-02-21] VITALS (28 sets, daily range): BP systolic 79–129; BP diastolic 50–90; PULSE 73–95; RESP 20–38
[2017-02-21] MEDS: DIPHENHYDRAMINE 50 MG INJ IV PRN (03:22)
[2017-02-21] MEDS: FUROSEMIDE 20 MG INJ IV SCH ×2 (05:31→18:00)
[2017-02-21 07:53] LABS: MAGNESIUM 2.2 mg/dl (1.7-2.5); PHOSPHORUS 4.1 mg/dl (2.5-4.9)
[2017-02-21 08:03] LABS: ALBUMIN 1.8 g/dl (3.3-4.9); ALBUMIN/GLOBULIN RATIO 0.5; BILIRUBIN,DIRECT 0.1 mg/dl (0.00-0.20); BILIRUBIN,INDIRECT 0.7 mg/dl (0-1.1); BILIRUBIN,TOTAL 0.8 mg/dl (0.2-1.3); CALCIUM 8.9 mg/dl (8.4-10.2); CREATININE 0.59 mg/dl (0.44-1.00); POTASSIUM 3.2 mmol/L (3.5-5.1); TOTAL PROTEIN 5.4 g/dl (6.1-8.1)
[2017-02-21] MEDS: ALBUTEROL/IPRATROPIUM (NEB) 3 ML AMP HHN SCH ×3 (08:37→23:28)
[2017-02-21] MEDS: METOPROLOL 25 MG TAB PO SCH ×2 (08:50→21:00)
[2017-02-21] MEDS: FLUCONAZOLE 200 MG TAB PO SCH (08:50)
[2017-02-21] MEDS: MIDODRINE 5 MG TAB PO SCH ×2 (08:52→21:00)
[2017-02-21] MEDS: PANTOPRAZOLE (EC) 40 MG TAB PO SCH (08:52)
[2017-02-21] MEDS: MUPIROCIN 2% 22 GM OINT TOP SCH ×2 (08:53→21:20)
[2017-02-21] MEDS: BALSAM PERU/CASTOR OIL 60 GM TUBE TOP SCH (08:53)
[2017-02-21] MEDS: COLLAGENASE 30 GM TUBE TOP SCH (09:00)
[2017-02-21] MEDS: MEROPENEM 1 GM/50ML(PMX) 50 ML IVPB SCH ×2 (09:01→21:20)
[2017-02-21 09:03] LABS: ABNORMAL IP MESSAGE 1; BASOPHILS % 0.3 % (0.0-2.0); EOSINOPHILS # 0.1 10^3/ul (0.0-0.5); EOSINOPHILS % 2.4 % (0.0-7.0); HEMATOCRIT 27.6 % (37.0-47.0); LYMPHOCYTES # 1.5 10^3/ul (0.8-2.9); LYMPHOCYTES % 24.7 % (15.0-51.0); MEAN CORPUSCULAR HEMOGLOBIN 28.9 pg (29.0-33.0); MEAN CORPUSCULAR HGB CONC 31.5 g/dl (32.0-37.0); MEAN CORPUSCULAR VOLUME 91.7 fl (82.0-101.0); MONOCYTE # 0.2 10^3/ul (0.3-0.9); MONOCYTES % 3.2 % (0.0-11.0); NEUTROPHILS % 68.4 % (39.0-77.0); NUCLEATED RED BLOOD CELLS% 0.5 /100WBC (0.0-0.0); PLATELET COUNT 82 10^3/UL (140-415); RED BLOOD COUNT 3.01 10^6/ul (4.20-5.40); RED CELL DISTRIBUTION WIDTH 18.4 % (11.5-14.5); WHITE BLOOD COUNT 5.9 10^3/ul (4.8-10.8)
[2017-02-21 09:11] LABS: HEMOGLOBIN 8.7 g/dl (12.0-16.0); POSITIVE DIFF @See below
[2017-02-21] MEDS ORDERED: FUROSEMIDE 40 MG INJ IV STA (09:47)
[2017-02-21 09:48] LABS: INR 1.34; PROTIME 16.7 Sec (12.2-14.2); PT RATIO 1.3
[2017-02-21 09:49] LABS: PARTIAL THROMBOPLASTIN TIME 41.1 Sec (25.0-35.0)
--- NOTE | 2017-02-21 10:35 | PN ---
Date/Time of Note Date/Time of Note DATE: 02/21/17 TIME: 10:30 Assessment/Plan VTE Prophylaxis VTE Prophylaxis Intervention: SCD's Lines/Catheters IV Catheter Type (from Nrs): PICC Line Central line still needed: Yes Urinary Cath still in place: Yes Reason Cath still needed: urinary retention Assessment/Plan Assessment/Plan Assessment/Plan * Acute respiratory failure management c/o pulmonary * Anemia hemoglobin 8.7 * Refused EGD * Pancreatitis with Pancreatic pseudocyst/awaiting drainage * Coagulopathy * H/O tube cholecystostomy * H/O ERCP removal of stone with biliary stent * Plan * hold Bleeding scan because no active bleeding * Continue present regimen * Surgical management of pseudocyst * Endoscopic attempts at cystogastrostomy would require tertiary facility * IR drainage once coagulation permits * monitor hemoglobin and hematocrit daily and transfuse per protocol * further orders will depend on clinical course * case discussed with DR Hill Subjective 24 Hr Interval Summary Free Text/Dictation * Course reviewed with RN * patient seen and examined * latest hemoglobin 8.7 * still tachypneic Exam/Review of Systems Vital Signs Vitals Vital Signs Date Time Temp Pulse Resp B/P Pulse Ox O2 Delivery O2 Flow Rate FiO2 02/21/17 08:33 75 02/21/17 07:54 97.9 20 110/53 93 02/20/17 22:23 2.0 02/20/17 22:23 Nasal Cannula 02/20/17 15:59 45 Intake and Output 02/20/17 02/20/17 02/21/17 15:00 23:00 07:00 Intake Total 580 ml 760 ml Output Total 1725 ml 3300 ml Balance -1145 ml -2540 ml Exam Constitutional: frail Head: normocephalic Neck: non-tender, supple Respiratory: crackles/rales, diminished breath sounds, labored breathing Cardiovascular: nl pulses, regular rate and rhythm Gastrointestinal: bowel sounds, non-tender, soft, No rebound or guarding Musculoskeletal: muscle weakness Neurological: nl speech Skin: rash or lesions Results Result Diagram: 02/21/17 0625 02/21/17 0625 Results 24 hrs Laboratory Tests Test 02/20/17 17:00 02/21/17 06:25 02/21/17 08:44 Body Fluid Type THORACENTESIS FLUID Body Fluid Volume 300.0 Body Fluid Color YELLOW Body Fluid Appearance SLIGHTLY HAZY Body Fluid WBC 369 Body Fluid RBC (Auto) 2 Body Fluid Polynuclear WBCs (%) 43.9 Body Fluid Mononuclear Cells % Auto 56.1 Body Fluid Glucose 98 Body Fluid Total Protein < 2.0 Body Fluid Lactate Dehydrogenase 427 White Blood Count 5.9 Red Blood Count 3.01 #L Hemoglobin 8.7 L Hematocrit 27.6 L Mean Corpuscular Volume 91.7 Mean Corpuscular Hemoglobin 28.9 #L Mean Corpuscular Hemoglobin Concent 31.5 #L Red Cell Distribution Width 18.4 #H Platelet Count 82 L Mean Platelet Volume Neutrophils % 68.4 Lymphocytes % 24.7 Monocytes % 3.2 Eosinophils % 2.4 Basophils % 0.3 Nucleated Red Blood Cells % 0.5 H Neutrophils # 4.0 Lymphocytes # 1.5 Monocytes # 0.2 L Eosinophils # 0.1 Basophils # 0.0 Nucleated Red Blood Cells # 0.0 Sodium Level 156 H Potassium Level 3.2 L Chloride Level 114 H Carbon Dioxide Level 31 Anion Gap 14 Blood Urea Nitrogen 34 H Creatinine 0.59 Glucose Level 106 Calcium Level 8.9 Phosphorus Level 4.1 Magnesium Level 2.2 Total Bilirubin 0.8 Direct Bilirubin 0.10 Indirect Bilirubin 0.7 Aspartate Amino Transf (AST/SGOT) 70 H Alanine Aminotransferase (ALT/SGPT) 42 Alkaline Phosphatase 221 H Total Protein 5.4 L Albumin 1.8 L Globulin 3.60 H Albumin/Globulin Ratio 0.50 Prothrombin Time 16.7 H Prothrombin Time Ratio 1.3 INR International Normalized Ratio 1.34 Activated Partial Thromboplast Time 41.1 H Medications Medications Current Medications Fluconazole (Diflucan) 200 mg DAILY PO Last administered on 02/20/17 09:52; Admin Dose 200 MG; Start 02/11/17 at 10:00 Metoprolol Tartrate (Lopressor) 25 mg BID PO Last administered on 02/20/17 09: 53; Admin Dose 25 MG; Start 02/11/17 at 21:00 Pantoprazole (Protonix Tab) 40 mg DAILY PO Last administered on 02/20/17 09:52 ; Admin Dose 40 MG; Start 02/12/17 at 09:00 Ondansetron HCl (Zofran Inj) 4 mg Q6H PRN IV NAUSEA AND/OR VOMITING Last administered on 02/13/17 00:36; Admin Dose 4 MG; Start 02/11/17 at 10:00 Acetaminophen (Tylenol Tab) 650 mg Q6H PRN PO PAIN LEVEL 1-3 OR FEVER; Start at 10:00 Morphine Sulfate (morphine) 2 mg Q4H PRN IV PAIN LEVEL 7-10 Last administered on 02/19/17 13:03; Admin Dose 2 MG; Start 02/11/17 at 10:00 Docusate Sodium (Colace) 100 mg Q12H PRN PO CONSTIPATION; Start 02/11/17 at 10: 00 Bisacodyl 10 mg 10 mg DAILY PRN [place] CONSTIPATION; Start 02/11/17 at 10:00 Meropenem/Sodium Chloride (Merrem 1 Gm/50 ml (Pmx)) 50 ml @ 200 mls/hr Q12 IVPB Last administered on 02/21/17 09:01; Admin Dose 200 MLS/HR; Start at 18:00 Miscellaneous Information (Pending Santyl Order For Wound Care) This patient prado... PRN PRN XX WOUND CARE; Start 02/11/17 at 19:00 Collagenase (Santyl) 1 applic DAILY TOP Last administered on 02/20/17 09:00; Admin Dose 1 APPLIC; Start 02/12/17 at 13:30 Diphenhydramine HCl 25 mg 25 mg Q6H PRN IV ITCHING Last administered on 03:22; Admin Dose 25 MG; Start 02/12/17 at 14:00 Total Parenteral Nutrition (Tpn) 1,000 ml @ 40 mls/hr Q24H IV Last administered on 02/20/17 18:57; Admin Dose 40 MLS/HR; Start 02/12/17 at 18:00 Midodrine (Proamatine) 5 mg BID PO Last administered on 02/20/17 20:25; Admin Dose 5 MG; Start 02/15/17 at 21:00 Mupirocin (Bactroban) 1 applic BID TOP Last administered on 02/21/17 08:53; Admin Dose 1 APPLIC; Start 02/15/17 at 21:00 Alprazolam (Xanax) 0.25 mg Q12H PRN PO ANXIETY Last administered on 02/19/17 23:07; Admin Dose 0.25 MG; Start 02/19/17 at 14:00 LUZMARIA SPAIN NP Feb 21, 2017 10:35
[2017-02-21 10:47] LABS: HEMATOCRIT 29.1 % (37.0-47.0); RED BLOOD COUNT 1.93 10^6/ul (4.20-5.40)
[2017-02-21 10:48] LABS: HEMOGLOBIN 8.7 g/dl (12.0-16.0)
--- NOTE | 2017-02-21 10:51 | PN ---
Date/Time of Note Date/Time of Note DATE: 02/21/17 TIME: 10:41 Assessment/Plan VTE Prophylaxis VTE Prophylaxis Intervention: SCD's Lines/Catheters IV Catheter Type (from Nrsg): PICC Line Central line still needed: Yes Urinary Cath still in place: Yes Reason Cath still needed: terminal illness/intractable pain Assessment/Plan Assessment/Plan Chronic anemia,stable infected pseudocyst,awaiting drainage chronic pancreatitis,on TPN acute on chronic resp failure CHF Hypernatremia iv lasix BIPAP prn check CXRAY proceed with drainage of psuedocyst pulm and GI f/u Exam/Review of Systems Vital Signs Vitals Vital Signs Date Time Temp Pulse Resp B/P Pulse Ox O2 Delivery O2 Flow Rate FiO2 02/21/17 08:33 75 02/21/17 07:54 97.9 20 110/53 93 02/20/17 22:23 2.0 02/20/17 22:23 Nasal Cannula 02/20/17 15:59 45 Intake and Output 02/20/17 02/20/17 02/21/17 15:00 23:00 07:00 Intake Total 580 ml 760 ml Output Total 1725 ml 3300 ml Balance -1145 ml -2540 ml Exam Constitutional: alert Neck: supple Respiratory: intercostal retraction, labored breathing Cardiovascular: regular rate and rhythm Gastrointestinal: non-tender, soft Results Result Diagram: 02/21/1725 02/21/17 0625 Results 24 hrs Laboratory Tests Test 02/20/17 17:00 02/21/17 06:25 02/21/17 08:44 Body Fluid Type THORACENTESIS FLUID Body Fluid Volume 300.0 Body Fluid Color YELLOW Body Fluid Appearance SLIGHTLY HAZY Body Fluid WBC 369 Body Fluid RBC (Auto) 2 Body Fluid Polynuclear WBCs (%) 43.9 Body Fluid Mononuclear Cells % Auto 56.1 Body Fluid Glucose 98 Body Fluid Total Protein < 2.0 Body Fluid Lactate Dehydrogenase 427 White Blood Count 5.9 Red Blood Count 3.01 #L Hemoglobin 8.7 L Hematocrit 27.6 L Mean Corpuscular Volume 91.7 Mean Corpuscular Hemoglobin 28.9 #L Mean Corpuscular Hemoglobin Concent 31.5 #L Red Cell Distribution Width 18.4 #H Platelet Count 82 L Mean Platelet Volume Neutrophils % 68.4 Lymphocytes % 24.7 Monocytes % 3.2 Eosinophils % 2.4 Basophils % 0.3 Nucleated Red Blood Cells % 0.5 H Neutrophils # 4.0 Lymphocytes # 1.5 Monocytes # 0.2 L Eosinophils # 0.1 Basophils # 0.0 Nucleated Red Blood Cells # 0.0 Sodium Level 156 H Potassium Level 3.2 L Chloride Level 114 H Carbon Dioxide Level 31 Anion Gap 14 Blood Urea Nitrogen 34 H Creatinine 0.59 Glucose Level 106 Calcium Level 8.9 Phosphorus Level 4.1 Magnesium Level 2.2 Total Bilirubin 0.8 Direct Bilirubin 0.10 Indirect Bilirubin 0.7 Aspartate Amino Transf (AST/SGOT) 70 H Alanine Aminotransferase (ALT/SGPT) 42 Alkaline Phosphatase 221 H Total Protein 5.4 L Albumin 1.8 L Globulin 3.60 H Albumin/Globulin Ratio 0.50 Prothrombin Time 16.7 H Prothrombin Time Ratio 1.3 INR International Normalized Ratio 1.34 Activated Partial Thromboplast Time 41.1 H Medications Medications Current Medications Fluconazole (Diflucan) 200 mg DAILY PO Last administered on 02/20/17 09:52; Admin Dose 200 MG; Start 02/11/17 at 10:00 Metoprolol Tartrate (Lopressor) 25 mg BID PO Last administered on 02/20/17 09: 53; Admin Dose 25 MG; Start 02/11/17 at 21:00 Pantoprazole (Protonix Tab) 40 mg DAILY PO Last administered on 02/20/17 09:52 ; Admin Dose 40 MG; Start 02/12/17 at 09:00 Ondansetron HCl (Zofran Inj) 4 mg Q6H PRN IV NAUSEA AND/OR VOMITING Last administered on 02/13/17 00:36; Admin Dose 4 MG; Start 02/11/17 at 10:00 Acetaminophen (Tylenol Tab) 650 mg Q6H PRN PO PAIN LEVEL 1-3 OR FEVER; Start at 10:00 Morphine Sulfate (morphine) 2 mg Q4H PRN IV PAIN LEVEL 7-10 Last administered on 02/19/17 13:03; Admin Dose 2 MG; Start 02/11/17 at 10:00 Docusate Sodium (Colace) 100 mg Q12H PRN PO CONSTIPATION; Start 02/11/17 at 10: 00 Bisacodyl 10 mg 10 mg DAILY PRN [place] CONSTIPATION; Start 02/11/17 at 10:00 Meropenem/Sodium Chloride (Merrem 1 Gm/50 ml (Pmx)) 50 ml @ 200 mls/hr Q12 IVPB Last administered on 02/21/17 09:01; Admin Dose 200 MLS/HR; Start at 18:00 Miscellaneous Information (Pending Santyl Order For Wound Care) This patient prado... PRN PRN XX WOUND CARE; Start 02/11/17 at 19:00 Collagenase (Santyl) 1 applic DAILY TOP Last administered on 02/20/17 09:00; Admin Dose 1 APPLIC; Start 02/12/17 at 13:30 Diphenhydramine HCl 25 mg 25 mg Q6H PRN IV ITCHING Last administered on 03:22; Admin Dose 25 MG; Start 02/12/17 at 14:00 Total Parenteral Nutrition (Tpn) 1,000 ml @ 40 mls/hr Q24H IV Last administered on 02/20/17 18:57; Admin Dose 40 MLS/HR; Start 02/12/17 at 18:00 Midodrine (Proamatine) 5 mg BID PO Last administered on 02/20/17 20:25; Admin Dose 5 MG; Start 02/15/17 at 21:00 Mupirocin (Bactroban) 1 applic BID TOP Last administered on 02/21/17 08:53; Admin Dose 1 APPLIC; Start 02/15/17 at 21:00 Alprazolam (Xanax) 0.25 mg Q12H PRN PO ANXIETY Last administered on 02/19/17 23:07; Admin Dose 0.25 MG; Start 02/19/17 at 14:00 DILAN CLEARY MD Feb 21, 2017 10:51
[2017-02-21] MEDS ORDERED: PHYTONADIONE 10 MG/ML INJ SC ONE (11:00)
--- NOTE | 2017-02-21 11:24 | CONS ---
Date/Time of Note Date/Time of Note DATE: 02/21/17 TIME: 11:22 Assessment/Plan Assessment/Plan Additional Assessment/Plan Chest x-ray was reviewed from today which is showing bibasilar infiltrative changes. Assessment recommendations; next 1. Patient admitted with shortness of breath with a recent history of pancreatic pseudocyst formation after a bout of pancreatitis. 2. History of pleural effusion status post recent thoracentesis in the hospital however scant amount of fluid could be removed from the right lung. 3. Bilateral pneumonia. 4. Pulmonary edema. 5. Possible underlying COPD. Continue current treatment. Consultation Date/Type/Reason Admit Date/Time Feb 11, 2017 at 05:28 Initial Consult Date 02/20/17 Type of Consultation: Pulmonary Referring Provider: BONIFACIO COWART 24 HR Interval Summary Free Text/Dictation Patient's condition is improved. Still complains of shortness of breath. Maintained on supplemental oxygen. Denies any abdominal pain, nausea vomiting. General exam; elderly woman, awake currently in no distress. Exam/Review of Systems Vital Signs Vitals Vital Signs Date Time Temp Pulse Resp B/P Pulse Ox O2 Delivery O2 Flow Rate FiO2 02/21/17 08:33 75 02/21/17 07:54 97.9 20 110/53 93 02/20/17 22:23 2.0 02/20/17 22:23 Nasal Cannula 02/20/17 15:59 45 Intake and Output 02/20/17 02/20/17 02/21/17 15:00 23:00 07:00 Intake Total 580 ml 760 ml Output Total 1725 ml 3300 ml Balance -1145 ml -2540 ml Exam HEENT exam; supple neck, no JVD. No lymphadenopathy. Midline trachea. No thyromegaly. Patient multiple carious teeth. Bilateral intraocular lens implants. Chest exam; minimally decreased breath sounds in lung bases. Upper lobes are clear to auscultation. S1-S2 audible, no murmurs. Regular rhythm. Abdomen exam; soft, nontender. No organomegaly. Bowel sounds audible. Extremity exam; no edema. 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 Results Result Diagram: 02/21/17 0625 02/21/17 0625 Results 24 hrs Laboratory Tests Test 02/20/17 17:00 02/21/17 06:25 02/21/17 08:44 Body Fluid Type THORACENTESIS FLUID Body Fluid Volume 300.0 Body Fluid Color YELLOW Body Fluid Appearance SLIGHTLY HAZY Body Fluid WBC 369 Body Fluid RBC (Auto) 2 Body Fluid Polynuclear WBCs (%) 43.9 Body Fluid Mononuclear Cells % Auto 56.1 Body Fluid Glucose 98 Body Fluid Total Protein < 2.0 Body Fluid Lactate Dehydrogenase 427 White Blood Count 5.9 Red Blood Count 3.01 #L Hemoglobin 8.7 L Hematocrit 27.6 L Mean Corpuscular Volume 91.7 Mean Corpuscular Hemoglobin 28.9 #L Mean Corpuscular Hemoglobin Concent 31.5 #L Red Cell Distribution Width 18.4 #H Platelet Count 82 L Mean Platelet Volume Neutrophils % 68.4 Lymphocytes % 24.7 Monocytes % 3.2 Eosinophils % 2.4 Basophils % 0.3 Nucleated Red Blood Cells % 0.5 H Neutrophils # 4.0 Lymphocytes # 1.5 Monocytes # 0.2 L Eosinophils # 0.1 Basophils # 0.0 Nucleated Red Blood Cells # 0.0 Sodium Level 156 H Potassium Level 3.2 L Chloride Level 114 H Carbon Dioxide Level 31 Anion Gap 14 Blood Urea Nitrogen 34 H Creatinine 0.59 Glucose Level 106 Calcium Level 8.9 Phosphorus Level 4.1 Magnesium Level 2.2 Total Bilirubin 0.8 Direct Bilirubin 0.10 Indirect Bilirubin 0.7 Aspartate Amino Transf (AST/SGOT) 70 H Alanine Aminotransferase (ALT/SGPT) 42 Alkaline Phosphatase 221 H Total Protein 5.4 L Albumin 1.8 L Globulin 3.60 H Albumin/Globulin Ratio 0.50 Prothrombin Time 16.7 H Prothrombin Time Ratio 1.3 INR International Normalized Ratio 1.34 Activated Partial Thromboplast Time 41.1 H Medications Medications Current Medications Fluconazole (Diflucan) 200 mg DAILY PO Last administered on 02/20/17 09:52; Admin Dose 200 MG; Start 02/11/17 at 10:00 Metoprolol Tartrate (Lopressor) 25 mg BID PO Last administered on 02/20/17 09: 53; Admin Dose 25 MG; Start 02/11/17 at 21:00 Pantoprazole (Protonix Tab) 40 mg DAILY PO Last administered on 02/20/17 09:52 ; Admin Dose 40 MG; Start 02/12/17 at 09:00 Ondansetron HCl (Zofran Inj) 4 mg Q6H PRN IV NAUSEA AND/OR VOMITING Last administered on 02/13/17 00:36; Admin Dose 4 MG; Start 02/11/17 at 10:00 Acetaminophen (Tylenol Tab) 650 mg Q6H PRN PO PAIN LEVEL 1-3 OR FEVER; Start at 10:00 Morphine Sulfate (morphine) 2 mg Q4H PRN IV PAIN LEVEL 7-10 Last administered on 02/19/17 13:03; Admin Dose 2 MG; Start 02/11/17 at 10:00 Docusate Sodium (Colace) 100 mg Q12H PRN PO CONSTIPATION; Start 02/11/17 at 10: 00 Bisacodyl 10 mg 10 mg DAILY PRN [place] CONSTIPATION; Start 02/11/17 at 10:00 Meropenem/Sodium Chloride (Merrem 1 Gm/50 ml (Pmx)) 50 ml @ 200 mls/hr Q12 IVPB Last administered on 02/21/17 09:01; Admin Dose 200 MLS/HR; Start at 18:00 Miscellaneous Information (Pending Santyl Order For Wound Care) This patient prado... PRN PRN XX WOUND CARE; Start 02/11/17 at 19:00 Collagenase (Santyl) 1 applic DAILY TOP Last administered on 02/20/17 09:00; Admin Dose 1 APPLIC; Start 02/12/17 at 13:30 Diphenhydramine HCl 25 mg 25 mg Q6H PRN IV ITCHING Last administered on 03:22; Admin Dose 25 MG; Start 02/12/17 at 14:00 Total Parenteral Nutrition (Tpn) 1,000 ml @ 40 mls/hr Q24H IV Last administered on 02/20/17 18:57; Admin Dose 40 MLS/HR; Start 02/12/17 at 18:00 Midodrine (Proamatine) 5 mg BID PO Last administered on 02/20/17 20:25; Admin Dose 5 MG; Start 02/15/17 at 21:00 Mupirocin (Bactroban) 1 applic BID TOP Last administered on 02/21/17 08:53; Admin Dose 1 APPLIC; Start 02/15/17 at 21:00 Alprazolam (Xanax) 0.25 mg Q12H PRN PO ANXIETY Last administered on 7/20/17at 23:07; Admin Dose 0.25 MG; Start 02/19/17 at 14:00 LISA KOEHLER Feb 21, 2017 11:24
[2017-02-21 13:55] LABS: AADO2 Arterial 176.7 mmHg (7.0-24.0); Allen Test ACCEPTAB; Arterial COHb 0.3 % (0.0-3.0); Arterial Fraction of Oxyhgb 93.1 % (93.0-99.0); Arterial HCO3 28.8 mmol/L (22.0-26.0); Arterial MetHb 0.4 % (0.0-1.5); Arterial Total Hemglobin 10.5 g/dl (12.0-18.0); Blood Gas IEPAP 16/6; MODE MASK - BIPAP
--- NOTE | 2017-02-21 15:21 | CONS ---
Date/Time of Note Date/Time of Note DATE: 02/21/17 TIME: 15:18 Assessment/Plan Assessment/Plan Chief Complaint/Hosp Course - CAD/CHF - Ongoing Hypernatremia - Anemia - Azotemia PLAN: On TPN at this point will have Pharmacy to lower Na content as much as possible Mix all IV Meds in 0.45% NS from now on Monitor Labs Check IRON status THANK YOU Problems: Consultation Date/Type/Reason Admit Date/Time Feb 11, 2017 at 05:28 Date of Consultation: Feb 21, 2017 Type of Consultation: NEPHROLOGY Reason for Consultation - Ongoing Hypernatremia Constitutional: requiring IVF Eyes: no complaints ENT: no complaints Respiratory: shortness of breath Cardiovascular: other (Tachycardia) Gastrointestinal: pain (Upper, mild) Genitourinary: no complaints, other (Elder catheter) Musculoskeletal: other (Generalized weakness) Neurologic: no complaints Endocrine: no complaints Lymphatic: no complaints Psychological: no complaints Past Medical History Medical History: deep vein thrombosis, gallstones Past Surgical History Past Surgical Hx: endoscopy, other (ivc filter,s/p tube cholecystostomy) Family History Significant Family History: no pertinent family hx Social History Alcohol Use: none Smoking Status: Former smoker Drug Use: none Exam/Review of Systems Vital Signs Vitals Vital Signs Date Time Temp Pulse Resp B/P Pulse Ox O2 Delivery O2 Flow Rate FiO2 02/21/17 14:00 73 27 96/61 99 BIPAP 02/21/17 11:39 97.4 02/21/17 09:01 5.0 02/20/17 15:59 45 Intake and Output 02/20/17 02/20/17 02/21/17 15:00 23:00 07:00 Intake Total 580 ml 760 ml Output Total 1725 ml 3300 ml Balance -1145 ml -2540 ml Exam Psych: no complaints Head: normocephalic Neck: jvd Respiratory: crackles/rales Cardiovascular: edema, regular rate and rhythm, systolic murmur Gastrointestinal: soft Results Result Diagram: 02/21/17 0625 02/21/17 0625 Results 24 hrs Laboratory Tests Test 02/20/17 17:00 02/21/17 06:25 02/21/17 08:44 02/21/17 13:20 Body Fluid Type THORACENTESIS FLUID Body Fluid Volume 300.0 Body Fluid Color YELLOW Body Fluid Appearance SLIGHTLY HAZY Body Fluid WBC 369 Body Fluid RBC (Auto) 2 Body Fluid Polynuclear WBCs (%) 43.9 Body Fluid Mononuclear Cells % Auto 56.1 Body Fluid Glucose 98 Body Fluid Total Protein < 2.0 Body Fluid Lactate Dehydrogenase 427 White Blood Count 5.9 Red Blood Count 3.01 #L Hemoglobin 8.7 L Hematocrit 27.6 L Mean Corpuscular Volume 91.7 Mean Corpuscular Hemoglobin 28.9 #L Mean Corpuscular Hemoglobin Concent 31.5 #L Red Cell Distribution Width 18.4 #H Platelet Count 82 L Mean Platelet Volume Neutrophils % 68.4 Lymphocytes % 24.7 Monocytes % 3.2 Eosinophils % 2.4 Basophils % 0.3 Nucleated Red Blood Cells % 0.5 H Neutrophils # 4.0 Lymphocytes # 1.5 Monocytes # 0.2 L Eosinophils # 0.1 Basophils # 0.0 Nucleated Red Blood Cells # 0.0 Sodium Level 156 H Potassium Level 3.2 L Chloride Level 114 H Carbon Dioxide Level 31 Anion Gap 14 Blood Urea Nitrogen 34 H Creatinine 0.59 Glucose Level 106 Calcium Level 8.9 Phosphorus Level 4.1 Magnesium Level 2.2 Total Bilirubin 0.8 Direct Bilirubin 0.10 Indirect Bilirubin 0.7 Aspartate Amino Transf (AST/SGOT) 70 H Alanine Aminotransferase (ALT/SGPT) 42 Alkaline Phosphatase 221 H Total Protein 5.4 L Albumin 1.8 L Globulin 3.60 H Albumin/Globulin Ratio 0.50 Prothrombin Time 16.7 H Prothrombin Time Ratio 1.3 INR International Normalized Ratio 1.34 Activated Partial Thromboplast Time 41.1 H Blood Gas Specimen Source Blood arterial Arterial Blood Date Drawn 02/21/2017 1:25:00 PM Arterial Blood pH (Temp corrected) 7.532 H Arterial Blood pCO2 (Temp correct) 35.1 Arterial Blood pO2 (Temp corrected) 68.1 L Arterial Blood HCO3 28.8 H Arterial Blood Base Excess 6.0 H Arterial Blood Oxygen Saturation 93.8 L Shreyas Test ACCEPTAB Arterial Blood Gas Puncture Site Right Radial Arterial Blood Carboxyhemoglobin 0.3 Arterial Blood Methemoglobin 0.4 Blood Gas A-a O2 Differential 176.7 H Oxyhemoglobin Percent 93.1 Total Hemoglobin 10.5 L Blood Gas Temperature 37.0 Blood Gas Respiration Rate 16.0 Blood Gas Actual Respiration Rate 24 Blood Gas Modality MASK - BIPAP FiO2 40.0 Blood Gas IPAP/EPAP Ratio 16/6 Blood Gas Notified Whom TM Blood Gas Notified Time 02/21/2017 1:46:00 PM Medications Medications Current Medications Fluconazole (Diflucan) 200 mg DAILY PO Last administered on 02/20/17 09:52; Admin Dose 200 MG; Start 02/11/17 at 10:00 Metoprolol Tartrate (Lopressor) 25 mg BID PO Last administered on 02/20/17 09: 53; Admin Dose 25 MG; Start 02/11/17 at 21:00 Pantoprazole (Protonix Tab) 40 mg DAILY PO Last administered on 02/20/17 09:52 ; Admin Dose 40 MG; Start 02/12/17 at 09:00 Ondansetron HCl (Zofran Inj) 4 mg Q6H PRN IV NAUSEA AND/OR VOMITING Last administered on 02/13/17 00:36; Admin Dose 4 MG; Start 02/11/17 at 10:00 Acetaminophen (Tylenol Tab) 650 mg Q6H PRN PO PAIN LEVEL 1-3 OR FEVER; Start at 10:00 Morphine Sulfate (morphine) 2 mg Q4H PRN IV PAIN LEVEL 7-10 Last administered on 02/19/17 13:03; Admin Dose 2 MG; Start 02/11/17 at 10:00 Docusate Sodium (Colace) 100 mg Q12H PRN PO CONSTIPATION; Start 02/11/17 at 10: 00 Bisacodyl 10 mg 10 mg DAILY PRN [place] CONSTIPATION; Start 02/11/17 at 10:00 Meropenem/Sodium Chloride (Merrem 1 Gm/50 ml (Pmx)) 50 ml @ 200 mls/hr Q12 IVPB Last administered on 02/21/17 09:01; Admin Dose 200 MLS/HR; Start at 18:00 Miscellaneous Information (Pending Santyl Order For Wound Care) This patient prado... PRN PRN XX WOUND CARE; Start 02/11/17 at 19:00 Collagenase (Santyl) 1 applic DAILY TOP Last administered on 02/20/17 09:00; Admin Dose 1 APPLIC; Start 02/12/17 at 13:30 Diphenhydramine HCl 25 mg 25 mg Q6H PRN IV ITCHING Last administered on 03:22; Admin Dose 25 MG; Start 02/12/17 at 14:00 Total Parenteral Nutrition (Tpn) 1,000 ml @ 40 mls/hr Q24H IV Last administered on 02/20/17 18:57; Admin Dose 40 MLS/HR; Start 02/12/17 at 18:00 Midodrine (Proamatine) 5 mg BID PO Last administered on 02/20/17 20:25; Admin Dose 5 MG; Start 02/15/17 at 21:00 Mupirocin (Bactroban) 1 applic BID TOP Last administered on 02/21/17 08:53; Admin Dose 1 APPLIC; Start 02/15/17 at 21:00 Alprazolam (Xanax) 0.25 mg Q12H PRN PO ANXIETY Last administered on 02/19/17 23:07; Admin Dose 0.25 MG; Start 02/19/17 at 14:00 ALEKSANDAR HINSON MD Feb 21, 2017 15:21
[2017-02-21] MEDS ORDERED: [UNRECOGNIZED DRUG - REMARK] XX SCH (15:30)
--- NOTE | 2017-02-21 15:41 | RADRPT ---
PROCEDURE: XR Chest. CLINICAL INDICATION: Shortness of breath. TECHNIQUE: Single frontal view. COMPARISON: 02/20/2017. FINDINGS: The right arm PICC line remains in satisfactory position. There is air space disease bilaterally in the mid and lower lung zones consistent with atelectasis or pneumonia, slightly worse than seen pre viously. The heart is enlarged. There is calcification in the aorta consistent with atherosclerosis. There is a moderate right pleural effusion and small left pleural effusion. There is no pneumothorax. IMPRESSION: 1. Worse appearance of the lungs and larger right pleural effusion. 2. No other change from 02/20/2017. RPTAT: QQ .Joel Diamond MD, MD Date Time Electronically viewed and signed by .Joel Diamond MD, MD on 02/21/2017 15:41 .R/
[2017-02-21] MEDS ORDERED: SOD CHLORIDE 0.9% 250 ML IV PRN (17:30)
[2017-02-21] MEDS: TPN 1,000 ML IV SCH (18:00)
[2017-02-21] MEDS ORDERED: NORepinephrine 8MG/250 ML (PMX 250 ML ONE (20:07)
[2017-02-21] MEDS: ALPRAZOLAM 0.25 MG TAB PO PRN (23:47)
[2017-02-22] VITALS (46 sets, daily range): BP systolic 67–147; BP diastolic 40–95; PULSE 76–117; RESP 16–50
[2017-02-22 05:38] LABS: ABNORMAL IP MESSAGE 1; BASOPHILS % 0.5 % (0.0-2.0); EOSINOPHILS # 0.1 10^3/ul (0.0-0.5); EOSINOPHILS % 0.8 % (0.0-7.0); HEMOGLOBIN 8.4 g/dl (12.0-16.0); LYMPHOCYTES % 15.9 % (15.0-51.0); MEAN CORPUSCULAR VOLUME 103.3 fl (82.0-101.0); MEAN PLATELET VOLUME 13.9 fl (7.4-10.4); MONOCYTE # 0.1 10^3/ul (0.3-0.9); MONOCYTES % 1.6 % (0.0-11.0); NEUTROPHIL # 5.1 10^3/ul (1.6-7.5); NEUTROPHILS % 79.2 % (39.0-77.0); NUCLEATED RED BLOOD CELLS% 0.3 /100WBC (0.0-0.0); PLATELET COUNT 80 10^3/UL (140-415); RED BLOOD COUNT 2.09 10^6/ul (4.20-5.40); RED CELL DISTRIBUTION WIDTH 24.8 % (11.5-14.5); WHITE BLOOD COUNT 6.4 10^3/ul (4.8-10.8)
[2017-02-22] MEDS: FUROSEMIDE 20 MG INJ IV SCH (05:57)
[2017-02-22 06:03] LABS: INR 1.34; PROTIME 16.7 Sec (12.2-14.2); PT RATIO 1.3
[2017-02-22 06:04] LABS: PARTIAL THROMBOPLASTIN TIME 39.8 Sec (25.0-35.0)
[2017-02-22 06:13] LABS: CALCIUM 8.1 mg/dl (8.4-10.2); CREATININE 0.69 mg/dl (0.44-1.00); PHOSPHORUS 3.5 mg/dl (2.5-4.9); POTASSIUM 3.5 mmol/L (3.5-5.1)
[2017-02-22 06:48] LABS: MEAN CORPUSCULAR HEMOGLOBIN 40.2 pg (29.0-33.0); MEAN CORPUSCULAR HGB CONC 38.9 g/dl (32.0-37.0); POSITIVE DIFF @See below
[2017-02-22 07:47] LABS: AADO2 Arterial 126.3 mmHg (7.0-24.0); Allen Test ACCEPTAB; Arterial Base Excess 8.1 mmol/L (-3.0-3); Arterial COHb 0.3 % (0.0-3.0); Arterial Fraction of Oxyhgb 91.4 % (93.0-99.0); Arterial HCO3 31.5 mmol/L (22.0-26.0); Arterial MetHb 0.6 % (0.0-1.5); Arterial Total Hemglobin 10.7 g/dl (12.0-18.0); MODE NASAL CANNULA
[2017-02-22] MEDS: ALBUTEROL/IPRATROPIUM (NEB) 3 ML AMP HHN SCH ×3 (08:19→23:15)
[2017-02-22] MEDS: MEROPENEM 1 GM/50ML(PMX) 50 ML IVPB SCH ×2 (08:20→21:07)
[2017-02-22] MEDS: MUPIROCIN 2% 22 GM OINT TOP SCH ×2 (08:25→21:07)
[2017-02-22] MEDS: BALSAM PERU/CASTOR OIL 60 GM TUBE TOP SCH (08:26)
[2017-02-22] MEDS: MIDODRINE 5 MG TAB PO SCH ×2 (09:00→20:38)
[2017-02-22] MEDS: METOPROLOL 25 MG TAB PO SCH ×2 (09:00→20:37)
[2017-02-22] MEDS: PANTOPRAZOLE (EC) 40 MG TAB PO SCH (09:00)
--- NOTE | 2017-02-22 09:21 | RADRPT ---
PROCEDURE: XR Chest. CLINICAL INDICATION: Shortness of breath. TECHNIQUE: Single frontal view. COMPARISON: 02/21/2017. FINDINGS: The right arm PICC line remains in satisfactory position. There is air space disease bilaterally in the mid and lower lung zones consistent with atelectasis or pneumonia, unchanged. The lungs are ot herwise clear. The heart is enlarged. There is calcification in the aorta consistent with atherosclerosis. There is a moderate right pleural effusion and small left pleural effusion, unchanged. There is no pneumothorax. IMPRESSION: 1. No change from 02/21/2017. RPTAT: QQ .Joel Diamond MD, MD Date Time Electronically viewed and signed by .Joel Diamond MD, MD on 02/22/2017 09:21 .R/
[2017-02-22] MEDS: COLLAGENASE 30 GM TUBE TOP SCH (10:00)
--- NOTE | 2017-02-22 10:00 | PN ---
Date/Time of Note Date/Time of Note DATE: 02/22/17 TIME: 09:53 Assessment/Plan VTE Prophylaxis VTE Prophylaxis Intervention: SCD's Lines/Catheters IV Catheter Type (from Nrsg): PICC Line Central line still needed: Yes Urinary Cath still in place: Yes Reason Cath still needed: skin wounds contaminated by urine Assessment/Plan Assessment/Plan pancreatic pseudocyst pancreatitis acute on chronic resp failure Bilat PNA CHF Pleural effusion Cont current RX await pseudocyst drainage change diflucan to IV transfer to [facility] if ok with Dr Chaudhary Subjective 24 Hr Interval Summary Constitutional: no complaints Gastrointestinal: no complaints Exam/Review of Systems Vital Signs Vitals Vital Signs Date Time Temp Pulse Resp B/P Pulse Ox O2 Delivery O2 Flow Rate FiO2 02/22/17 08:31 98.8 98 20 147/57 95 02/22/17 08:20 Nasal Cannula 4.0 02/22/17 05:49 40 Intake and Output 02/21/17 02/21/17 02/22/17 15:00 23:00 07:00 Intake Total 170 ml 580 ml 280 ml Output Total 460 ml 930 ml 415 ml Balance -290 ml -350 ml -135 ml Exam Neck: supple Respiratory: crackles/rales Cardiovascular: regular rate and rhythm Gastrointestinal: bowel sounds, soft, tender Results Result Diagram: 02/22/17 0500 02/22/17 0500 Results 24 hrs Laboratory Tests Test 02/21/17 13:20 02/22/17 05:00 02/22/17 07:00 Blood Gas Specimen Source Blood arterial Blood arterial Arterial Blood Date Drawn 02/21/2017 1:25:00 PM 02/22/2017 7:30:31 AM Arterial Blood pH (Temp corrected) 7.532 H 7.522 H Arterial Blood pCO2 (Temp correct) 35.1 39.3 Arterial Blood pO2 (Temp corrected) 68.1 L 63.1 L Arterial Blood HCO3 28.8 H 31.5 H Arterial Blood Base Excess 6.0 H 8.1 H Arterial Blood Oxygen Saturation 93.8 L 92.2 L Shreyas Test ACCEPTAB ACCEPTAB Arterial Blood Gas Puncture Site Right Radial Right Radial Arterial Blood Carboxyhemoglobin 0.3 0.3 Arterial Blood Methemoglobin 0.4 0.6 Blood Gas A-a O2 Differential 176.7 H 126.3 H Oxyhemoglobin Percent 93.1 91.4 L Total Hemoglobin 10.5 L 10.7 L Blood Gas Temperature 37.0 37.0 Blood Gas Respiration Rate 16.0 Blood Gas Actual Respiration Rate 24 Blood Gas Modality MASK - BIPAP NASAL CANNULA FiO2 40.0 33.0 Blood Gas IPAP/EPAP Ratio 16/6 Blood Gas Notified Whom TM CW Blood Gas Notified Time 02/21/2017 1:46:00 PM 02/22/2017 7:47:34 AM White Blood Count 6.4 Red Blood Count 2.09 #L Hemoglobin 8.4 L Hematocrit 21.6 #L Mean Corpuscular Volume 103.3 H Mean Corpuscular Hemoglobin 40.2 #H Mean Corpuscular Hemoglobin Concent 38.9 #H Red Cell Distribution Width 24.8 #H Platelet Count 80 L Mean Platelet Volume 13.9 H Neutrophils % 79.2 H Lymphocytes % 15.9 Monocytes % 1.6 Eosinophils % 0.8 Basophils % 0.5 Nucleated Red Blood Cells % 0.3 H Neutrophils # 5.1 Lymphocytes # 1.0 Monocytes # 0.1 L Eosinophils # 0.1 Basophils # 0.0 Nucleated Red Blood Cells # 0.0 Prothrombin Time 16.7 H Prothrombin Time Ratio 1.3 INR International Normalized Ratio 1.34 Activated Partial Thromboplast Time 39.8 H Sodium Level 154 H Potassium Level 3.5 Chloride Level 115 H Carbon Dioxide Level 30 Anion Gap 13 Blood Urea Nitrogen 29 H Creatinine 0.69 Glucose Level 185 Calcium Level 8.1 L Phosphorus Level 3.5 Magnesium Level 2.0 Medications Medications Current Medications Metoprolol Tartrate (Lopressor) 25 mg BID PO Last administered on 02/20/17 09: 53; Admin Dose 25 MG; Start 02/11/17 at 21:00 Pantoprazole (Protonix Tab) 40 mg DAILY PO Last administered on 02/20/17 09:52 ; Admin Dose 40 MG; Start 02/12/17 at 09:00 Ondansetron HCl (Zofran Inj) 4 mg Q6H PRN IV NAUSEA AND/OR VOMITING Last administered on 02/13/17 00:36; Admin Dose 4 MG; Start 02/11/17 at 10:00 Acetaminophen (Tylenol Tab) 650 mg Q6H PRN PO PAIN LEVEL 1-3 OR FEVER; Start at 10:00 Morphine Sulfate (morphine) 2 mg Q4H PRN IV PAIN LEVEL 7-10 Last administered on 02/19/17 13:03; Admin Dose 2 MG; Start 02/11/17 at 10:00 Docusate Sodium (Colace) 100 mg Q12H PRN PO CONSTIPATION; Start 02/11/17 at 10: 00 Bisacodyl 10 mg 10 mg DAILY PRN [place] CONSTIPATION; Start 02/11/17 at 10:00 Meropenem/Sodium Chloride (Merrem 1 Gm/50 ml (Pmx)) 50 ml @ 200 mls/hr Q12 IVPB Last administered on 02/22/17 08:20; Admin Dose 200 MLS/HR; Start at 18:00 Miscellaneous Information (Pending Santyl Order For Wound Care) This patient prado... PRN PRN XX WOUND CARE; Start 02/11/17 at 19:00 Collagenase (Santyl) 1 applic DAILY TOP Last administered on 02/20/17 09:00; Admin Dose 1 APPLIC; Start 02/12/17 at 13:30 Diphenhydramine HCl 25 mg 25 mg Q6H PRN IV ITCHING Last administered on 03:22; Admin Dose 25 MG; Start 02/12/17 at 14:00 Total Parenteral Nutrition (Tpn) 1,000 ml @ 40 mls/hr Q24H IV Last administered on 02/20/17 18:57; Admin Dose 40 MLS/HR; Start 02/12/17 at 18:00 Midodrine (Proamatine) 5 mg BID PO Last administered on 02/20/17 20:25; Admin Dose 5 MG; Start 02/15/17 at 21:00 Mupirocin (Bactroban) 1 applic BID TOP Last administered on 02/22/17 08:25; Admin Dose 1 APPLIC; Start 02/15/17 at 21:00 Alprazolam (Xanax) 0.25 mg Q12H PRN PO ANXIETY Last administered on 02/21/17 23:47; Admin Dose 0.25 MG; Start 02/19/17 at 14:00 Miscellaneous Information ONCE XX ; Start 02/21/17 at 15:30 Norepinephrine 16 mg/Dextrose 500 ml @ 1.87 mls/hr TITRATE IV ; Start 02/21/17 at 17:30 Sodium Chloride (NS) 250 ml @ 250 mls/hr Q1H PRN IV abp below 90 Last administered on 02/21/17t 20:08; Admin Dose 250 MLS/HR; Start 02/21/17 at 17:30 DILAN CLEARY MD Feb 22, 2017 10:00
[2017-02-22 10:26] LABS: HEMATOCRIT 27.1 % (37.0-47.0)
--- NOTE | 2017-02-22 11:13 | CONS ---
Date/Time of Note Date/Time of Note DATE: 02/22/17 TIME: 11:10 Assessment/Plan Assessment/Plan Additional Assessment/Plan Chest x-ray was reviewed from today which is showing left lower lobe infiltrate/ atelectasis, there is significant improvement in generalized pulmonary vascular congestion. Assessment recommendations; 1. Patient admitted with pneumonia with clinical decompensation yesterday morning requiring transfer to ICU, now doing fairly well on 4 L nasal cannula. 2. Anemia. 3. Thrombocytopenia. 4. Hypernatremia. 5. Mild pulmonary edema. 6. History of hypertension. Discontinue Lasix. Continue current medications. Monitor serum sodium. Consultation Date/Type/Reason Admit Date/Time Feb 11, 2017 at 05:28 Initial Consult Date 02/20/17 Type of Consultation: Pulmonary/critical care Referring Provider: BONIFACIO COWART 24 HR Interval Summary Free Text/Dictation Patient condition is improved over the last 24 hours. She was transferred to ICU for medical floor because of poor mental status. General exam; elderly woman, awake and alert. Currently in no distress. Patient denying any chest pain, shortness of breath has improved. Exam/Review of Systems Vital Signs Vitals Vital Signs Date Time Temp Pulse Resp B/P Pulse Ox O2 Delivery O2 Flow Rate FiO2 02/22/17 08:31 98.8 98 20 147/57 95 02/22/17 08:20 Nasal Cannula 4.0 02/22/17 05:49 40 Intake and Output 02/21/17 02/21/17 02/22/17 15:00 23:00 07:00 Intake Total 170 ml 580 ml 280 ml Output Total 460 ml 930 ml 415 ml Balance -290 ml -350 ml -135 ml Exam HEENT exam; supple neck, no JVD. No lymphadenopathy. Midline trachea. No thyromegaly. Patient has few remaining teeth. Chest exam; diminished but clear breath sound. S1-S2 audible, no murmurs. Regular rhythm. Abdomen exam; soft, no organomegaly. Bowel sounds audible. Extremity exam; no peripheral edema. Patient does have ecchymosis involving all 4 extremities. [employer] exam; no focal deficit. Results Result Diagram: 02/22/17 0500 02/22/17 0500 Results 24 hrs Laboratory Tests Test 02/21/17 13:20 02/22/17 05:00 02/22/17 07:00 Blood Gas Specimen Source Blood arterial Blood arterial Arterial Blood Date Drawn 02/21/2017 1:25:00 PM 02/22/2017 7:30:31 AM Arterial Blood pH (Temp corrected) 7.532 H 7.522 H Arterial Blood pCO2 (Temp correct) 35.1 39.3 Arterial Blood pO2 (Temp corrected) 68.1 L 63.1 L Arterial Blood HCO3 28.8 H 31.5 H Arterial Blood Base Excess 6.0 H 8.1 H Arterial Blood Oxygen Saturation 93.8 L 92.2 L Shreyas Test ACCEPTAB ACCEPTAB Arterial Blood Gas Puncture Site Right Radial Right Radial Arterial Blood Carboxyhemoglobin 0.3 0.3 Arterial Blood Methemoglobin 0.4 0.6 Blood Gas A-a O2 Differential 176.7 H 126.3 H Oxyhemoglobin Percent 93.1 91.4 L Total Hemoglobin 10.5 L 10.7 L Blood Gas Temperature 37.0 37.0 Blood Gas Respiration Rate 16.0 Blood Gas Actual Respiration Rate 24 Blood Gas Modality MASK - BIPAP NASAL CANNULA FiO2 40.0 33.0 Blood Gas IPAP/EPAP Ratio 16/6 Blood Gas Notified Whom TM CW Blood Gas Notified Time 02/21/2017 1:46:00 PM 02/22/2017 7:47:34 AM White Blood Count 6.4 Red Blood Count 2.09 #L Hemoglobin 8.4 L Hematocrit 27.1 L Mean Corpuscular Volume 103.3 H Mean Corpuscular Hemoglobin 40.2 #H Mean Corpuscular Hemoglobin Concent 38.9 #H Red Cell Distribution Width 24.8 #H Platelet Count 80 L Mean Platelet Volume 13.9 H Neutrophils % 79.2 H Lymphocytes % 15.9 Monocytes % 1.6 Eosinophils % 0.8 Basophils % 0.5 Nucleated Red Blood Cells % 0.3 H Neutrophils # 5.1 Lymphocytes # 1.0 Monocytes # 0.1 L Eosinophils # 0.1 Basophils # 0.0 Nucleated Red Blood Cells # 0.0 Prothrombin Time 16.7 H Prothrombin Time Ratio 1.3 INR International Normalized Ratio 1.34 Activated Partial Thromboplast Time 39.8 H Sodium Level 154 H Potassium Level 3.5 Chloride Level 115 H Carbon Dioxide Level 30 Anion Gap 13 Blood Urea Nitrogen 29 H Creatinine 0.69 Glucose Level 185 Calcium Level 8.1 L Phosphorus Level 3.5 Magnesium Level 2.0 Medications Medications Current Medications Metoprolol Tartrate (Lopressor) 25 mg BID PO Last administered on 02/20/17 09: 53; Admin Dose 25 MG; Start 02/11/17 at 21:00 Pantoprazole (Protonix Tab) 40 mg DAILY PO Last administered on 02/20/17 09:52 ; Admin Dose 40 MG; Start 02/12/17 at 09:00 Ondansetron HCl (Zofran Inj) 4 mg Q6H PRN IV NAUSEA AND/OR VOMITING Last administered on 02/13/17 00:36; Admin Dose 4 MG; Start 02/11/17 at 10:00 Acetaminophen (Tylenol Tab) 650 mg Q6H PRN PO PAIN LEVEL 1-3 OR FEVER; Start at 10:00 Morphine Sulfate (morphine) 2 mg Q4H PRN IV PAIN LEVEL 7-10 Last administered on 02/19/17 13:03; Admin Dose 2 MG; Start 02/11/17 at 10:00 Docusate Sodium (Colace) 100 mg Q12H PRN PO CONSTIPATION; Start 02/11/17 at 10: 00 Bisacodyl 10 mg 10 mg DAILY PRN [place] CONSTIPATION; Start 02/11/17 at 10:00 Meropenem/Sodium Chloride (Merrem 1 Gm/50 ml (Pmx)) 50 ml @ 200 mls/hr Q12 IVPB Last administered on 02/22/17 08:20; Admin Dose 200 MLS/HR; Start at 18:00 Miscellaneous Information (Pending Santyl Order For Wound Care) This patient prado... PRN PRN XX WOUND CARE; Start 02/11/17 at 19:00 Collagenase (Santyl) 1 applic DAILY TOP Last administered on 02/22/17 10:00; Admin Dose 1 APPLIC; Start 02/12/17 at 13:30 Diphenhydramine HCl 25 mg 25 mg Q6H PRN IV ITCHING Last administered on 03:22; Admin Dose 25 MG; Start 02/12/17 at 14:00 Total Parenteral Nutrition (Tpn) 1,000 ml @ 40 mls/hr Q24H IV Last administered on 02/20/17 18:57; Admin Dose 40 MLS/HR; Start 02/12/17 at 18:00 Midodrine (Proamatine) 5 mg BID PO Last administered on 02/20/17 20:25; Admin Dose 5 MG; Start 02/15/17 at 21:00 Mupirocin (Bactroban) 1 applic BID TOP Last administered on 02/22/17 08:25; Admin Dose 1 APPLIC; Start 02/15/17 at 21:00 Alprazolam (Xanax) 0.25 mg Q12H PRN PO ANXIETY Last administered on 02/21/17 23:47; Admin Dose 0.25 MG; Start 02/19/17 at 14:00 Miscellaneous Information ONCE XX ; Start 02/21/17 at 15:30 Norepinephrine 16 mg/Dextrose 500 ml @ 1.87 mls/hr TITRATE IV ; Start 02/21/17 at 17:30 Sodium Chloride 250 ml @ 250 mls/hr Q1H PRN IV abp below 90 Last administered on 02/21/17 20:08; Admin Dose 250 MLS/HR; Start 02/21/17 at 17:30 Fluconazole (Diflucan 200 Mg/ NS (Pmx)) 100 ml @ 100 mls/hr Q24H IVPB ; Start 02/22/17 at 11:00 LISA KOEHLER Feb 22, 2017 11:13
--- NOTE | 2017-02-22 12:30 | PN ---
Date/Time of Note Date/Time of Note DATE: 02/22/17 TIME: 12:27 Assessment/Plan VTE Prophylaxis VTE Prophylaxis Intervention: contraindicated VTE Contraindication Reason: bleeding Lines/Catheters IV Catheter Type (from Nrs): PICC Line Central line still needed: Yes Urinary Cath still in place: Yes Reason Cath still needed: urinary retention Assessment/Plan Assessment/Plan Acute respiratory failure management c/o pulmonary * Anemia hemoglobin 8.7 * Refused EGD * Pancreatitis with Pancreatic pseudocyst/awaiting drainage * Coagulopathy * H/O tube cholecystostomy * H/O ERCP removal of stone with biliary stent * Plan * Continue present regimen * Surgical management of pseudocyst * Endoscopic attempts at cystogastrostomy would require tertiary facility * IR drainage once coagulation permits * monitor hemoglobin and hematocrit daily and transfuse per protocol * further orders will depend on clinical course * case discussed with DR Hill Subjective 24 Hr Interval Summary Free Text/Dictation * Course reviewed with RN * patient seen and examined * Breathing much better * hemoglobin 8.7 8.4 for the past 2 days Exam/Review of Systems Vital Signs Vitals Vital Signs Date Time Temp Pulse Resp B/P Pulse Ox O2 Delivery O2 Flow Rate FiO2 02/22/17 11:00 117 29 119/72 95 Nasal Cannula 4.0 02/22/17 08:31 98.8 02/22/17 05:49 40 Intake and Output 02/21/17 02/21/17 02/22/17 15:00 23:00 07:00 Intake Total 170 ml 580 ml 320 ml Output Total 460 ml 930 ml 615 ml Balance -290 ml -350 ml -295 ml Exam Constitutional: frail Eyes: nl sclera Neck: non-tender, supple Respiratory: diminished breath sounds, normal air movement Cardiovascular: nl pulses, regular rate and rhythm Gastrointestinal: non-tender, soft Musculoskeletal: muscle weakness, swelling Extremities: normal pulses, pitting pedal edema Neurological: confused Skin: nl turgor, No rash or lesions Lymph: nl lymph nodes Results Result Diagram: 02/22/17 0500 02/22/17 0500 Results 24 hrs Laboratory Tests Test 02/21/17 13:20 02/22/17 05:00 02/22/17 07:00 Blood Gas Specimen Source Blood arterial Blood arterial Arterial Blood Date Drawn 02/21/2017 1:25:00 PM 02/22/2017 7:30:31 AM Arterial Blood pH (Temp corrected) 7.532 H 7.522 H Arterial Blood pCO2 (Temp correct) 35.1 39.3 Arterial Blood pO2 (Temp corrected) 68.1 L 63.1 L Arterial Blood HCO3 28.8 H 31.5 H Arterial Blood Base Excess 6.0 H 8.1 H Arterial Blood Oxygen Saturation 93.8 L 92.2 L Shreyas Test ACCEPTAB ACCEPTAB Arterial Blood Gas Puncture Site Right Radial Right Radial Arterial Blood Carboxyhemoglobin 0.3 0.3 Arterial Blood Methemoglobin 0.4 0.6 Blood Gas A-a O2 Differential 176.7 H 126.3 H Oxyhemoglobin Percent 93.1 91.4 L Total Hemoglobin 10.5 L 10.7 L Blood Gas Temperature 37.0 37.0 Blood Gas Respiration Rate 16.0 Blood Gas Actual Respiration Rate 24 Blood Gas Modality MASK - BIPAP NASAL CANNULA FiO2 40.0 33.0 Blood Gas IPAP/EPAP Ratio 16/6 Blood Gas Notified Whom TM CW Blood Gas Notified Time 02/21/2017 1:46:00 PM 02/22/2017 7:47:34 AM White Blood Count 6.4 Red Blood Count 2.09 #L Hemoglobin 8.4 L Hematocrit 27.1 L Mean Corpuscular Volume 103.3 H Mean Corpuscular Hemoglobin 40.2 #H Mean Corpuscular Hemoglobin Concent 38.9 #H Red Cell Distribution Width 24.8 #H Platelet Count 80 L Mean Platelet Volume 13.9 H Neutrophils % 79.2 H Lymphocytes % 15.9 Monocytes % 1.6 Eosinophils % 0.8 Basophils % 0.5 Nucleated Red Blood Cells % 0.3 H Neutrophils # 5.1 Lymphocytes # 1.0 Monocytes # 0.1 L Eosinophils # 0.1 Basophils # 0.0 Nucleated Red Blood Cells # 0.0 Prothrombin Time 16.7 H Prothrombin Time Ratio 1.3 INR International Normalized Ratio 1.34 Activated Partial Thromboplast Time 39.8 H Sodium Level 154 H Potassium Level 3.5 Chloride Level 115 H Carbon Dioxide Level 30 Anion Gap 13 Blood Urea Nitrogen 29 H Creatinine 0.69 Glucose Level 185 Calcium Level 8.1 L Phosphorus Level 3.5 Magnesium Level 2.0 Medications Medications Current Medications Metoprolol Tartrate (Lopressor) 25 mg BID PO Last administered on 02/20/17t 09: 53; Admin Dose 25 MG; Start 02/11/17 at 21:00 Ondansetron HCl (Zofran Inj) 4 mg Q6H PRN IV NAUSEA AND/OR VOMITING Last administered on 02/13/17 00:36; Admin Dose 4 MG; Start 02/11/17 at 10:00 Acetaminophen (Tylenol Tab) 650 mg Q6H PRN PO PAIN LEVEL 1-3 OR FEVER; Start at 10:00 Morphine Sulfate (morphine) 2 mg Q4H PRN IV PAIN LEVEL 7-10 Last administered on 02/19/17 13:03; Admin Dose 2 MG; Start 02/11/17 at 10:00 Docusate Sodium (Colace) 100 mg Q12H PRN PO CONSTIPATION; Start 02/11/17 at 10: 00 Bisacodyl 10 mg 10 mg DAILY PRN [place] CONSTIPATION; Start 02/11/17 at 10:00 Meropenem/Sodium Chloride (Merrem 1 Gm/50 ml (Pmx)) 50 ml @ 200 mls/hr Q12 IVPB Last administered on 02/22/17 08:20; Admin Dose 200 MLS/HR; Start at 18:00 Miscellaneous Information (Pending Santyl Order For Wound Care) This patient prado... PRN PRN XX WOUND CARE; Start 02/11/17 at 19:00 Collagenase (Santyl) 1 applic DAILY TOP Last administered on 02/22/17 10:00; Admin Dose 1 APPLIC; Start 02/12/17 at 13:30 Diphenhydramine HCl 25 mg 25 mg Q6H PRN IV ITCHING Last administered on 03:22; Admin Dose 25 MG; Start 02/12/17 at 14:00 Total Parenteral Nutrition (Tpn) 1,000 ml @ 40 mls/hr Q24H IV Last administered on 02/20/17 18:57; Admin Dose 40 MLS/HR; Start 02/12/17 at 18:00 Midodrine (Proamatine) 5 mg BID PO Last administered on 02/20/17 20:25; Admin Dose 5 MG; Start 02/15/17 at 21:00 Mupirocin (Bactroban) 1 applic BID TOP Last administered on 02/22/17 08:25; Admin Dose 1 APPLIC; Start 02/15/17 at 21:00 Alprazolam (Xanax) 0.25 mg Q12H PRN PO ANXIETY Last administered on 02/21/17 23:47; Admin Dose 0.25 MG; Start 02/19/17 at 14:00 Miscellaneous Information ONCE XX ; Start 02/21/17 at 15:30 Norepinephrine 16 mg/Dextrose 500 ml @ 1.87 mls/hr TITRATE IV ; Start 02/21/17 at 17:30 Sodium Chloride 250 ml @ 250 mls/hr Q1H PRN IV abp below 90 Last administered on 02/21/17 20:08; Admin Dose 250 MLS/HR; Start 02/21/17 at 17:30 Fluconazole (Diflucan 200 Mg/ NS (Pmx)) 100 ml @ 100 mls/hr Q24H IVPB ; Start 02/22/17 at 11:00 Pantoprazole (Protonix Iv) 40 mg DAILY@06 IV ; Start 02/23/17 at 06:00 LUZMARIA SPAIN NP Feb 22, 2017 12:30
[2017-02-22] MEDS: FLUCONAZOLE 200 MG/NS (PMX) 100 ML IVPB SCH (13:14)
[2017-02-22 17:26] LABS: AADO2 Arterial 229.1 mmHg (7.0-24.0); Allen Test ACCEPTAB; Arterial Base Excess 5.8 mmol/L (-3.0-3); Arterial COHb 0.3 % (0.0-3.0); Arterial Fraction of Oxyhgb 90.9 % (93.0-99.0); Arterial HCO3 31.6 mmol/L (22.0-26.0); Arterial MetHb 0.5 % (0.0-1.5); Arterial Total Hemglobin 10.5 g/dl (12.0-18.0); Blood Gas IEPAP 16/6; Blood Gas PS 10; MODE MASK - BIPAP
[2017-02-22] MEDS ORDERED: NORepinephrine 8MG/250 ML (PMX 250 ML IV SCH (17:30)
[2017-02-22] MEDS: TPN 1,000 ML IV SCH (18:44)
[2017-02-22 21:06] LABS: AADO2 Arterial 221.2 mmHg (7.0-24.0); Allen Test ACCEPTAB; Arterial Base Excess 7.5 mmol/L (-3.0-3); Arterial COHb 0.3 % (0.0-3.0); Arterial Fraction of Oxyhgb 95.5 % (93.0-99.0); Arterial HCO3 31.8 mmol/L (22.0-26.0); Arterial MetHb 0.5 % (0.0-1.5); Arterial Total Hemglobin 10.7 g/dl (12.0-18.0); Blood Gas IEPAP 16/6; MODE MASK - BIPAP
[2017-02-23] VITALS (101 sets, daily range): BP systolic 70–161; BP diastolic 33–142; PULSE 0–117; RESP 18–47
[2017-02-23] MEDS: morphine 2 MG INJ IV PRN ×2 (01:35→13:16)
[2017-02-23] MEDS: COLLAGENASE 30 GM TUBE TOP SCH ×2 (01:45→08:57)
[2017-02-23] MEDS: ALPRAZOLAM 0.25 MG TAB PO PRN (02:09)
[2017-02-23] MEDS: PANTOPRAZOLE 40 MG INJ IV SCH (05:47)
[2017-02-23 05:57] LABS: CALCIUM 8.6 mg/dl (8.4-10.2); CREATININE 0.67 mg/dl (0.44-1.00); MAGNESIUM 2.2 mg/dl (1.7-2.5); PHOSPHORUS 3.5 mg/dl (2.5-4.9); POTASSIUM 3.7 mmol/L (3.5-5.1)
[2017-02-23 05:58] LABS: INR 1.4; PROTIME 17.2 Sec (12.2-14.2); PT RATIO 1.3
[2017-02-23 07:00] LABS: ABNORMAL IP MESSAGE 1; BASOPHIL # 0.1 10^3/ul (0.0-0.1); BASOPHILS % 0.4 % (0.0-2.0); EOSINOPHILS % 0.2 % (0.0-7.0); HEMOGLOBIN 9.5 g/dl (12.0-16.0); LYMPHOCYTES # 1.5 10^3/ul (0.8-2.9); LYMPHOCYTES % 9.1 % (15.0-51.0); MEAN CORPUSCULAR HEMOGLOBIN 28.7 pg (29.0-33.0); MEAN CORPUSCULAR HGB CONC 30.8 g/dl (32.0-37.0); MEAN CORPUSCULAR VOLUME 93.1 fl (82.0-101.0); MONOCYTE # 0.3 10^3/ul (0.3-0.9); NEUTROPHILS % 87.1 % (39.0-77.0); NUCLEATED RED BLOOD CELLS% 0.1 /100WBC (0.0-0.0); PLATELET COUNT 79 10^3/UL (140-415); RED BLOOD COUNT 3.31 10^6/ul (4.20-5.40)
[2017-02-23 07:02] LABS: POSITIVE DIFF @See below
[2017-02-23 07:03] LABS: HEMATOCRIT 30.8 % (37.0-47.0)
[2017-02-23] MEDS: ALBUTEROL/IPRATROPIUM (NEB) 3 ML AMP HHN SCH ×3 (07:06→23:35)
[2017-02-23] MEDS: METOPROLOL 25 MG TAB PO SCH ×2 (08:53→21:00)
[2017-02-23] MEDS: MIDODRINE 5 MG TAB PO SCH ×3 (08:54→21:00)
[2017-02-23] MEDS: MUPIROCIN 2% 22 GM OINT TOP SCH ×2 (08:57→21:00)
[2017-02-23] MEDS: BALSAM PERU/CASTOR OIL 60 GM TUBE TOP SCH (08:57)
[2017-02-23] MEDS: MEROPENEM 1 GM/50ML(PMX) 50 ML IVPB SCH ×2 (09:04→21:00)
[2017-02-23] MEDS ORDERED: NORepinephrine 8MG/250 ML (PMX 250 ML ONE (09:29)
[2017-02-23 10:06] LABS: OVALOCYTES 1+ (0-0); POLYCHROMASIA 1+ (0-0)
[2017-02-23] MEDS: FLUCONAZOLE 200 MG/NS (PMX) 100 ML IVPB SCH (11:43)
--- NOTE | 2017-02-23 11:47 | CONS ---
Date/Time of Note Date/Time of Note DATE: 02/23/17 TIME: 11:44 Consult Date/Type/Reason Admit Date/Time Feb 11, 2017 at 05:28 Initial Consult Date 02/21/17 Type of Consultation: Pulmonary/critical care Ordering Provider: BONIFACIO COWART Transferred to intensive care unit for worsening dyspnea. Remains BiPAP dependent. Significant desaturation off noninvasive positive pressure ventilation. Objective Vital Signs Date Time Temp Pulse Resp B/P Pulse Ox O2 Delivery O2 Flow Rate FiO2 02/23/17 11:20 92 100 50 02/23/17 10:30 24 133/64 02/23/17 10:00 BIPAP 02/23/17 04:00 98.1 02/23/17 02:43 4.0 Intake and Output 02/22/17 02/22/17 02/23/17 14:59 22:59 06:59 Intake Total 470 ml 453.750 ml 435.50 ml Output Total 730 ml 210 ml 260 ml Balance -260 ml 243.750 ml 175.50 ml Exam GENERAL: Elderly lady on noninvasive positive pressure ventilation opens eyes to voice. VITAL SIGNS: per chart NECK: Supple. No JVD or lymphadenopathy. CARDIAC EXAM: S1, S2. No added sounds or murmurs. CHEST: diminished air entry both lung wells. ABDOMEN: Soft, nontender. No guarding or rebound. EXTREMITIES: No cyanosis, clubbing or edema. NEUROLOGIC: Generalized weakness. No focal deficits. Results/Medications Result Diagram: 02/23/17 0400 02/23/17 0400 Results 24 hrs Laboratory Tests Test 02/22/17 17:00 02/22/17 21:00 02/23/17 04:00 Blood Gas Specimen Source Blood arterial Blood arterial Arterial Blood Date Drawn 02/22/2017 5:15:33 PM 02/22/2017 8:55:55 PM Arterial Blood pH (Temp corrected) 7.401 7.481 H Arterial Blood pCO2 (Temp correct) 52.1 H 43.6 Arterial Blood pO2 (Temp corrected) 68.8 L 86.3 Arterial Blood HCO3 31.6 H 31.8 H Arterial Blood Base Excess 5.8 H 7.5 H Arterial Blood Oxygen Saturation 91.6 L 96.3 Shreyas Test ACCEPTAB ACCEPTAB Arterial Blood Gas Puncture Site Right Radial Right Radial Arterial Blood Carboxyhemoglobin 0.3 0.3 Arterial Blood Methemoglobin 0.5 0.5 Blood Gas A-a O2 Differential 229.1 H 221.2 H Oxyhemoglobin Percent 90.9 L 95.5 Total Hemoglobin 10.5 L 10.7 L Blood Gas Temperature 37.0 37.0 Blood Gas Respiration Rate 16.0 16.0 Blood Gas Actual Respiration Rate 32 36 Blood Gas Modality MASK - BIPAP MASK - BIPAP FiO2 50.0 50.0 Blood Gas Pressure Support 10 Blood Gas IPAP/EPAP Ratio 16/01 16/01 Blood Gas Notified Catia [place] Blood Gas Notified Time 02/22/2017 5:26:16 PM 02/22/2017 9:06:43 PM White Blood Count 16.0 #H Red Blood Count 3.31 #L Hemoglobin 9.5 L Hematocrit 30.8 L Mean Corpuscular Volume 93.1 Mean Corpuscular Hemoglobin 28.7 #L Mean Corpuscular Hemoglobin Concent 30.8 #L Red Cell Distribution Width 19.0 #H Platelet Count 79 L Mean Platelet Volume Neutrophils % 87.1 H Lymphocytes % 9.1 L Monocytes % 2.0 Eosinophils % 0.2 Basophils % 0.4 Nucleated Red Blood Cells % 0.1 H Neutrophils # 14.0 H Lymphocytes # 1.5 Monocytes # 0.3 Eosinophils # 0.0 Basophils # 0.1 Nucleated Red Blood Cells # 0.0 Polychromasia 1+ Ovalocytes 1+ Prothrombin Time 17.2 H Prothrombin Time Ratio 1.3 INR International Normalized Ratio 1.40 Sodium Level 156 H Potassium Level 3.7 Chloride Level 116 H Carbon Dioxide Level 32 H Anion Gap 12 Blood Urea Nitrogen 30 H Creatinine 0.67 Glucose Level 100 # Calcium Level 8.6 Phosphorus Level 3.5 Magnesium Level 2.2 Medications Current Medications Metoprolol Tartrate (Lopressor) 25 mg BID PO Last administered on 02/20/17 09: 53; Admin Dose 25 MG; Start 02/11/17 at 21:00 Ondansetron HCl (Zofran Inj) 4 mg Q6H PRN IV NAUSEA AND/OR VOMITING Last administered on 02/13/17 00:36; Admin Dose 4 MG; Start 02/11/17 at 10:00 Acetaminophen (Tylenol Tab) 650 mg Q6H PRN PO PAIN LEVEL 1-3 OR FEVER; Start at 10:00 Morphine Sulfate (morphine) 2 mg Q4H PRN IV PAIN LEVEL 7-10 Last administered on 02/23/17 01:35; Admin Dose 2 MG; Start 02/11/17 at 10:00 Docusate Sodium (Colace) 100 mg Q12H PRN PO CONSTIPATION; Start 02/11/17 at 10: 00 Bisacodyl 10 mg 10 mg DAILY PRN [place] CONSTIPATION; Start 02/11/17 at 10:00 Meropenem/Sodium Chloride (Merrem 1 Gm/50 ml (Pmx)) 50 ml @ 200 mls/hr Q12 IVPB Last administered on 02/23/17 09:04; Admin Dose 200 MLS/HR; Start at 18:00 Miscellaneous Information (Pending Santyl Order For Wound Care) This patient prado... PRN PRN XX WOUND CARE; Start 02/11/17 at 19:00 Collagenase (Santyl) 1 applic DAILY TOP Last administered on 02/23/17 08:57; Admin Dose 1 APPLIC; Start 02/12/17 at 13:30 Diphenhydramine HCl 25 mg 25 mg Q6H PRN IV ITCHING Last administered on 03:22; Admin Dose 25 MG; Start 02/12/17 at 14:00 Total Parenteral Nutrition (Tpn) 1,000 ml @ 40 mls/hr Q24H IV Last administered on 02/22/17 18:44; Admin Dose 40 MLS/HR; Start 02/12/17 at 18:00 Midodrine (Proamatine) 5 mg BID PO Last administered on 02/20/17 20:25; Admin Dose 5 MG; Start 02/15/17 at 21:00 Mupirocin (Bactroban) 1 applic BID TOP Last administered on 02/23/17 08:57; Admin Dose 1 APPLIC; Start 02/15/17 at 21:00 Alprazolam (Xanax) 0.25 mg Q12H PRN PO ANXIETY Last administered on 02/23/17 02:09; Admin Dose 0.25 MG; Start 02/19/17 at 14:00 Miscellaneous Information ONCE XX ; Start 02/21/17 at 15:30 Norepinephrine 16 mg/Dextrose 500 ml @ 1.87 mls/hr TITRATE IV ; Start 02/21/17 at 17:30 Sodium Chloride 250 ml @ 250 mls/hr Q1H PRN IV abp below 90 Last administered on 02/21/17 20:08; Admin Dose 250 MLS/HR; Start 02/21/17 at 17:30 Fluconazole (Diflucan 200 Mg/ NS (Pmx)) 100 ml @ 100 mls/hr Q24H IVPB Last administered on 02/23/17 11:43; Admin Dose 100 MLS/HR; Start 02/22/17 at 11:00 Pantoprazole (Protonix Iv) 40 mg DAILY@06 IV Last administered on 02/23/17 05: 47; Admin Dose 40 MG; Start 02/23/17 at 06:00 Assessment/Plan Chief Complaint/Hosp Course Assessment 1. Recent severe pancreatitis completed by pseudocyst pending drainage. 2. Anemia of unclear etiology currently not stable for EGD given severe hypoxemia, she would require intubation and mechanical ventilation 3. Hypoxemic respiratory failure combination of volume overload and right pleural effusion. Chest x-ray shows moderate right pleural effusion with evidence of pulmonary edema. Patient remains BiPAP dependent. Hypoxemic respiratory failure likely secondary to combination of factors not just her pleural effusion. Significant neuromuscular weakness. Resulting in alveolar hypoventilation and hypercapnia. 4. Hypotension possibly secondary to ongoing sepsis/inflammatory process. 5. Nutrition continues TPN. 6. Tachycardia likely secondary to ongoing abdominal condition. 7. History of thromboembolic disease status post IVC filter Plan 1. Ultrasound-guided thoracentesis with pleural fluid studies right lung. 2. Consider continuing diuretics. 3. Consider jejunostomy tube for feeding and DC TPN if possible. This would help decrease the amount of fluid she has on board. 4. Continue DVT and GI prophylaxis Extensive discussion with patient's son at bedside. Although he is reluctant to have her intubated would be agreeable if this was last measured. Understands that intubation the result in patient not being able to be liberated from mechanical ventilation. He wishes to avoid this if at all possible. We discussed the use of BiPAP and I explained that this is not a long -term option for the patient. If she does not improve in the next few days and remains BiPAP dependent she would require intubation mechanical ventilation. We discussed repeat thoracentesis as another attempt to improve her respiratory status to avoid intubation. He is agreeable. Remains full code. Problems: VADGAMA,SLAVA V. MD, [facility] Feb 23, 2017 11:47
--- NOTE | 2017-02-23 12:43 | PN ---
Date/Time of Note Date/Time of Note DATE: 02/23/17 TIME: 12:36 Assessment/Plan VTE Prophylaxis VTE Prophylaxis Intervention: SCD's, other (s/p IVC ) Lines/Catheters IV Catheter Type (from Nrs): PICC Line Central line still needed: Yes Urinary Cath still in place: Yes Reason Cath still needed: other (indicate) (diuresis ) Assessment/Plan Assessment/Plan 86 yo female with: 1. Respiratory distress, in setting of pleural effusions, atelectasis, severe anemia and poor overall clinical status. Patient had to be transferred to ICU and is currently BiPAP dependent CXR still with volume overload and pleural effusion even s/p thoracentesis 02/20 with -300 cc Continue nebulizer treatment. Nereida scheduled, appreciate recommendation from Dr. Treviño. Monitor respiratory status. May end up needing intubation. Of note she did have bilateral thoracentesis at [facility] on her admission there last month 2. Severe pancreatitis with pseudocyst, currently on TPN and clear liquids. CAT scan of the abdomen and pelvis has been compared to the one done at [facility] approximately 3 weeks ago, cholecystostomy tube has been removed however there is concern as the patient has a new fluid collection in addition of the previous pseudocyst also previous pseudocyst seems to have increased in size and there is concern for possible infection. Still waiting for drainage of 2nd cyst but INR at 1.4 today and patient clinically declined on BiPAP now Continue Meropenem for now. 3. Acute on chronic anemia with again drop of hemoglobin to 6.0 this AM s/p transfusion of 2 units of packed red blood cells and 1 unit of FFP. Hb stable x 4 days Bleeding scan was not done due to respiratory distress and needs for intermittent BiPAP GI following. No signs of acute bleeding so far however patient does have positive fecal occult blood. Appreciate GI consult, patient and her son declined EGD prior. Appreciate recommendations of Dr Hannah, may still needs CT guided drainage of 2nd pseudocyst by IR, patient currently mostly n.p.o. and INR has been better however patient with respiratory distress not a candidate for IR procedure currently. 4. Hypotension: Based on records patient has been actually put on midodrine 5 mg p.o. tid due to ongoing hypotension even at discharge from [facility], Continue midodrine TID and on Levophed currently Continue Abx. 5. Urinary retention, status post acute kidney injury at [facility] , renal function seems to be much better, Elder catheter in place. Repeat UA wnl , repeat Urine cx negative. 6. Hypernatremia, Nutrition: Slowly improving with TPN adjustments TPN to be adjusted per pharmacy to adjust daily based on electrolytes. Repleting electrolytes additionally as needed. 7. Sinus Tachycardia: Per report from [facility] patient has sinus tachycardia. Resolving Continue beta-blockers as tolerated. 8. Venous thromboembolism with episode of DVT, status post IVC filter 9. Mild coagulopathy: PTT wnl, Vitamin K and FFP as needed for INR 1.4 but to be noted patient with VTE, s/p IVC filter . Prophylaxis: Protonix for GI prophylaxis, SCDs and status post IVC filter for DVT prophylaxis Disposition: ICU now, CT guided drainage of new pseudocyst by IR if possible Appreciate GI recs and cultures pending drainage, nuclear bleeding scan pending , I will discuss with GI next step once we get the bleeding scan. Son, MAX, at bedside updated today, he has voiced that he wants to talk to his mother more as they may need to reconsider goals of care, he also seems to be open to reconsider CODE STATUS and possibly comfort measures but keeps insisting that he needs to talk to his mother. Subjective 24 Hr Interval Summary Free Text/Dictation Patient in ICU on BiPAP, appreciate recs from Pulmonary and GI, on Levophed and may need intubation if keeps declining S/p thoracentesis right and removal 300 cc 02/20, plan for again repeat thoracentesis Full code and critically ill Exam/Review of Systems Vital Signs Vitals Vital Signs Date Time Temp Pulse Resp B/P Pulse Ox O2 Delivery O2 Flow Rate FiO2 02/23/17 12:00 104 02/23/17 11:20 100 50 02/23/17 10:30 24 133/64 02/23/17 10:00 BIPAP 02/23/17 04:00 98.1 02/23/17 02:43 4.0 Intake and Output 02/22/17 02/22/17 02/23/17 15:00 23:00 07:00 Intake Total 470 ml 468.750 ml 439.25 ml Output Total 560 ml 210 ml 230 ml Balance -90 ml 258.750 ml 209.25 ml Exam Constitutional: alert, oriented (x2), other (on BiPAP ) Respiratory: diminished breath sounds (bilaterally ), other (BiPAP) Cardiovascular: nl pulses, regular rate and rhythm Gastrointestinal: non-tender, soft Musculoskeletal: nl extremities to inspection Extremities: normal pulses, other (no anasarca ) Neurological: BOOKS SALESPERSON II-XII intact, lethargic, nl mental status (occasionally agitated on BiPAP) Results Result Diagram: 02/23/17 0400 02/23/17 0400 Results 24 hrs Laboratory Tests Test 02/22/17 17:00 02/22/17 21:00 02/23/17 04:00 Blood Gas Specimen Source Blood arterial Blood arterial Arterial Blood Date Drawn 02/22/2017 5:15:33 PM 02/22/2017 8:55:55 PM Arterial Blood pH (Temp corrected) 7.401 7.481 H Arterial Blood pCO2 (Temp correct) 52.1 H 43.6 Arterial Blood pO2 (Temp corrected) 68.8 L 86.3 Arterial Blood HCO3 31.6 H 31.8 H Arterial Blood Base Excess 5.8 H 7.5 H Arterial Blood Oxygen Saturation 91.6 L 96.3 Shreyas Test ACCEPTAB ACCEPTAB Arterial Blood Gas Puncture Site Right Radial Right Radial Arterial Blood Carboxyhemoglobin 0.3 0.3 Arterial Blood Methemoglobin 0.5 0.5 Blood Gas A-a O2 Differential 229.1 H 221.2 H Oxyhemoglobin Percent 90.9 L 95.5 Total Hemoglobin 10.5 L 10.7 L Blood Gas Temperature 37.0 37.0 Blood Gas Respiration Rate 16.0 16.0 Blood Gas Actual Respiration Rate 32 36 Blood Gas Modality MASK - BIPAP MASK - BIPAP FiO2 50.0 50.0 Blood Gas Pressure Support 10 Blood Gas IPAP/EPAP Ratio 16/01 16/01 Blood Gas Notified Whom PJ [place] Blood Gas Notified Time 02/22/2017 5:26:16 PM 02/22/2017 9:06:43 PM White Blood Count 16.0 #H Red Blood Count 3.31 #L Hemoglobin 9.5 L Hematocrit 30.8 L Mean Corpuscular Volume 93.1 Mean Corpuscular Hemoglobin 28.7 #L Mean Corpuscular Hemoglobin Concent 30.8 #L Red Cell Distribution Width 19.0 #H Platelet Count 79 L Mean Platelet Volume Neutrophils % 87.1 H Lymphocytes % 9.1 L Monocytes % 2.0 Eosinophils % 0.2 Basophils % 0.4 Nucleated Red Blood Cells % 0.1 H Neutrophils # 14.0 H Lymphocytes # 1.5 Monocytes # 0.3 Eosinophils # 0.0 Basophils # 0.1 Nucleated Red Blood Cells # 0.0 Polychromasia 1+ Ovalocytes 1+ Prothrombin Time 17.2 H Prothrombin Time Ratio 1.3 INR International Normalized Ratio 1.40 Sodium Level 156 H Potassium Level 3.7 Chloride Level 116 H Carbon Dioxide Level 32 H Anion Gap 12 Blood Urea Nitrogen 30 H Creatinine 0.67 Glucose Level 100 # Calcium Level 8.6 Phosphorus Level 3.5 Magnesium Level 2.2 Medications Medications Current Medications Metoprolol Tartrate (Lopressor) 25 mg BID PO Last administered on 02/20/17 09: 53; Admin Dose 25 MG; Start 02/11/17 at 21:00 Ondansetron HCl (Zofran Inj) 4 mg Q6H PRN IV NAUSEA AND/OR VOMITING Last administered on 02/13/17 00:36; Admin Dose 4 MG; Start 02/11/17 at 10:00 Acetaminophen (Tylenol Tab) 650 mg Q6H PRN PO PAIN LEVEL 1-3 OR FEVER; Start at 10:00 Morphine Sulfate (morphine) 2 mg Q4H PRN IV PAIN LEVEL 7-10 Last administered on 02/23/17 01:35; Admin Dose 2 MG; Start 02/11/17 at 10:00 Docusate Sodium (Colace) 100 mg Q12H PRN PO CONSTIPATION; Start 02/11/17 at 10: 00 Bisacodyl 10 mg 10 mg DAILY PRN [place] CONSTIPATION; Start 02/11/17 at 10:00 Meropenem/Sodium Chloride (Merrem 1 Gm/50 ml (Pmx)) 50 ml @ 200 mls/hr Q12 IVPB Last administered on 02/23/17 09:04; Admin Dose 200 MLS/HR; Start at 18:00 Miscellaneous Information (Pending Santyl Order For Wound Care) This patient prado... PRN PRN XX WOUND CARE; Start 02/11/17 at 19:00 Collagenase (Santyl) 1 applic DAILY TOP Last administered on 02/23/17 08:57; Admin Dose 1 APPLIC; Start 02/12/17 at 13:30 Diphenhydramine HCl 25 mg 25 mg Q6H PRN IV ITCHING Last administered on 03:22; Admin Dose 25 MG; Start 02/12/17 at 14:00 Total Parenteral Nutrition (Tpn) 1,000 ml @ 40 mls/hr Q24H IV Last administered on 02/22/17 18:44; Admin Dose 40 MLS/HR; Start 02/12/17 at 18:00 Midodrine (Proamatine) 5 mg BID PO Last administered on 02/20/17 20:25; Admin Dose 5 MG; Start 02/15/17 at 21:00 Mupirocin (Bactroban) 1 applic BID TOP Last administered on 02/23/17 08:57; Admin Dose 1 APPLIC; Start 02/15/17 at 21:00 Alprazolam (Xanax) 0.25 mg Q12H PRN PO ANXIETY Last administered on 02/23/17 02:09; Admin Dose 0.25 MG; Start 02/19/17 at 14:00 Miscellaneous Information ONCE XX ; Start 02/21/17 at 15:30 Norepinephrine 16 mg/Dextrose 500 ml @ 1.87 mls/hr TITRATE IV ; Start 02/21/17 at 17:30 Sodium Chloride 250 ml @ 250 mls/hr Q1H PRN IV abp below 90 Last administered on 02/21/17 20:08; Admin Dose 250 MLS/HR; Start 02/21/17 at 17:30 Fluconazole (Diflucan 200 Mg/ NS (Pmx)) 100 ml @ 100 mls/hr Q24H IVPB Last administered on 02/23/17 11:43; Admin Dose 100 MLS/HR; Start 02/22/17 at 11:00 Pantoprazole (Protonix Iv) 40 mg DAILY@06 IV Last administered on 02/23/17 05: 47; Admin Dose 40 MG; Start 02/23/17 at 06:00 BONIFACIO COWART Feb 23, 2017 12:43 BONIFACIO COWART Feb 23, 2017 12:43
--- NOTE | 2017-02-23 15:28 | CONS ---
Date/Time of Note Date/Time of Note DATE: 02/23/17 TIME: 15:23 Assessment/Plan Assessment/Plan Chief Complaint/Hosp Course - CAD/CHF - Ongoing Hypernatremia - Anemia - Azotemia PLAN: On TPN at this point D/W Pharmacy , will change & Mix all IV Meds to D5W Changing TKO IVF to D5W Hopefully can avoid giving extra IV due to CHF & Volume overload Monitor Labs Check IRON status THANK YOU Problems: Consultation Date/Type/Reason Admit Date/Time Feb 11, 2017 at 05:28 Initial Consult Date 02/21/17 Type of Consultation: NEPHROLOGY Reason for Consultation HYPERNATREMIA Referring Provider: BONIFACIO COWART 24 HR Interval Summary Subjective hx not possible: pt critical Exam/Review of Systems Vital Signs Vitals Vital Signs Date Time Temp Pulse Resp B/P Pulse Ox O2 Delivery O2 Flow Rate FiO2 02/23/17 15:15 83 24 101/58 98 02/23/17 15:04 50 02/23/17 15:00 BIPAP 02/23/17 12:00 99.2 02/23/17 02:43 4.0 Intake and Output 02/22/17 02/22/17 02/23/17 15:00 23:00 07:00 Intake Total 470 ml 468.750 ml 439.25 ml Output Total 560 ml 210 ml 230 ml Balance -90 ml 258.750 ml 209.25 ml Exam Constitutional: non-verbal Psych: no complaints Respiratory: crackles/rales Cardiovascular: edema, regular rate and rhythm, systolic murmur Results Result Diagram: 02/23/17 0400 02/23/17 0400 Results 24 hrs Laboratory Tests Test 02/22/17 17:00 02/22/17 21:00 02/23/17 04:00 Blood Gas Specimen Source Blood arterial Blood arterial Arterial Blood Date Drawn 02/22/2017 5:15:33 PM 02/22/2017 8:55:55 PM Arterial Blood pH (Temp corrected) 7.401 7.481 H Arterial Blood pCO2 (Temp correct) 52.1 H 43.6 Arterial Blood pO2 (Temp corrected) 68.8 L 86.3 Arterial Blood HCO3 31.6 H 31.8 H Arterial Blood Base Excess 5.8 H 7.5 H Arterial Blood Oxygen Saturation 91.6 L 96.3 Shreyas Test ACCEPTAB ACCEPTAB Arterial Blood Gas Puncture Site Right Radial Right Radial Arterial Blood Carboxyhemoglobin 0.3 0.3 Arterial Blood Methemoglobin 0.5 0.5 Blood Gas A-a O2 Differential 229.1 H 221.2 H Oxyhemoglobin Percent 90.9 L 95.5 Total Hemoglobin 10.5 L 10.7 L Blood Gas Temperature 37.0 37.0 Blood Gas Respiration Rate 16.0 16.0 Blood Gas Actual Respiration Rate 32 36 Blood Gas Modality MASK - BIPAP MASK - BIPAP FiO2 50.0 50.0 Blood Gas Pressure Support 10 Blood Gas IPAP/EPAP Ratio 16/01 16/01 Blood Gas Notified Whom PJ Howe GE Blood Gas Notified Time 02/22/2017 5:26:16 PM 02/22/2017 9:06:43 PM White Blood Count 16.0 #H Red Blood Count 3.31 #L Hemoglobin 9.5 L Hematocrit 30.8 L Mean Corpuscular Volume 93.1 Mean Corpuscular Hemoglobin 28.7 #L Mean Corpuscular Hemoglobin Concent 30.8 #L Red Cell Distribution Width 19.0 #H Platelet Count 79 L Mean Platelet Volume Neutrophils % 87.1 H Lymphocytes % 9.1 L Monocytes % 2.0 Eosinophils % 0.2 Basophils % 0.4 Nucleated Red Blood Cells % 0.1 H Neutrophils # 14.0 H Lymphocytes # 1.5 Monocytes # 0.3 Eosinophils # 0.0 Basophils # 0.1 Nucleated Red Blood Cells # 0.0 Polychromasia 1+ Ovalocytes 1+ Prothrombin Time 17.2 H Prothrombin Time Ratio 1.3 INR International Normalized Ratio 1.40 Sodium Level 156 H Potassium Level 3.7 Chloride Level 116 H Carbon Dioxide Level 32 H Anion Gap 12 Blood Urea Nitrogen 30 H Creatinine 0.67 Glucose Level 100 # Calcium Level 8.6 Phosphorus Level 3.5 Magnesium Level 2.2 Medications Medications Current Medications Metoprolol Tartrate (Lopressor) 25 mg BID PO Last administered on 02/20/17 09: 53; Admin Dose 25 MG; Start 02/11/17 at 21:00 Ondansetron HCl (Zofran Inj) 4 mg Q6H PRN IV NAUSEA AND/OR VOMITING Last administered on 02/13/17 00:36; Admin Dose 4 MG; Start 02/11/17 at 10:00 Acetaminophen (Tylenol Tab) 650 mg Q6H PRN PO PAIN LEVEL 1-3 OR FEVER; Start at 10:00 Morphine Sulfate (morphine) 2 mg Q4H PRN IV PAIN LEVEL 7-10 Last administered on 02/23/17 13:16; Admin Dose 2 MG; Start 02/11/17 at 10:00 Docusate Sodium (Colace) 100 mg Q12H PRN PO CONSTIPATION; Start 02/11/17 at 10: 00 Bisacodyl 10 mg 10 mg DAILY PRN [place] CONSTIPATION; Start 02/11/17 at 10:00 Meropenem/Sodium Chloride (Merrem 1 Gm/50 ml (Pmx)) 50 ml @ 200 mls/hr Q12 IVPB Last administered on 02/23/17 09:04; Admin Dose 200 MLS/HR; Start at 18:00 Miscellaneous Information (Pending Santyl Order For Wound Care) This patient prado... PRN PRN XX WOUND CARE; Start 02/11/17 at 19:00 Collagenase (Santyl) 1 applic DAILY TOP Last administered on 02/23/17 08:57; Admin Dose 1 APPLIC; Start 02/12/17 at 13:30 Diphenhydramine HCl 25 mg 25 mg Q6H PRN IV ITCHING Last administered on 03:22; Admin Dose 25 MG; Start 02/12/17 at 14:00 Total Parenteral Nutrition (Tpn) 1,000 ml @ 40 mls/hr Q24H IV Last administered on 02/22/17 18:44; Admin Dose 40 MLS/HR; Start 02/12/17 at 18:00 Mupirocin (Bactroban) 1 applic BID TOP Last administered on 02/23/17 08:57; Admin Dose 1 APPLIC; Start 02/15/17 at 21:00 Alprazolam (Xanax) 0.25 mg Q12H PRN PO ANXIETY Last administered on 02/23/17 02:09; Admin Dose 0.25 MG; Start 02/19/17 at 14:00 Miscellaneous Information ONCE XX ; Start 02/21/17 at 15:30 Norepinephrine 16 mg/Dextrose 500 ml @ 1.87 mls/hr TITRATE IV ; Start 02/21/17 at 17:30 Sodium Chloride 250 ml @ 250 mls/hr Q1H PRN IV abp below 90 Last administered on 02/21/17 20:08; Admin Dose 250 MLS/HR; Start 02/21/17 at 17:30 Fluconazole (Diflucan 200 Mg/ NS (Pmx)) 100 ml @ 100 mls/hr Q24H IVPB Last administered on 02/23/17 11:43; Admin Dose 100 MLS/HR; Start 02/22/17 at 11:00 Pantoprazole (Protonix Iv) 40 mg DAILY@06 IV Last administered on 02/23/17 05: 47; Admin Dose 40 MG; Start 02/23/17 at 06:00 Midodrine (Proamatine) 5 mg TID PO ; Start 02/23/17 at 13:30 Lorazepam (Ativan) 0.5 mg Q8H PRN IV AGITATION/ANXIETY; Start 02/23/17 at 13:30 ALEKSANDAR HINSON MD Feb 23, 2017 15:28
[2017-02-23] MEDS: TPN 1,000 ML IV SCH (17:56)
[2017-02-24] VITALS (107 sets, daily range): BP systolic 45–146; BP diastolic 33–109; PULSE 75–114; RESP 10–39
[2017-02-24] MEDS: morphine 2 MG INJ IV PRN (01:00)
[2017-02-24] MEDS: PANTOPRAZOLE 40 MG INJ IV SCH (05:23)
[2017-02-24 05:59] LABS: CALCIUM 8.6 mg/dl (8.4-10.2); CREATININE 0.75 mg/dl (0.44-1.00); MAGNESIUM 2.3 mg/dl (1.7-2.5); PHOSPHORUS 3.9 mg/dl (2.5-4.9); POTASSIUM 3.7 mmol/L (3.5-5.1)
[2017-02-24 06:37] LABS: ABNORMAL IP MESSAGE 1; BASOPHILS % 0.3 % (0.0-2.0); EOSINOPHILS # 0.1 10^3/ul (0.0-0.5); EOSINOPHILS % 0.4 % (0.0-7.0); HEMATOCRIT 28.3 % (37.0-47.0); HEMOGLOBIN 8.7 g/dl (12.0-16.0); LYMPHOCYTES # 1.6 10^3/ul (0.8-2.9); LYMPHOCYTES % 12.1 % (15.0-51.0); MEAN CORPUSCULAR HEMOGLOBIN 28.9 pg (29.0-33.0); MEAN CORPUSCULAR HGB CONC 30.7 g/dl (32.0-37.0); MONOCYTE # 0.3 10^3/ul (0.3-0.9); MONOCYTES % 2.2 % (0.0-11.0); NEUTROPHIL # 11.3 10^3/ul (1.6-7.5); NUCLEATED RED BLOOD CELLS% 0.2 /100WBC (0.0-0.0); PLATELET COUNT 75 10^3/UL (140-415); RED BLOOD COUNT 3.01 10^6/ul (4.20-5.40); RED CELL DISTRIBUTION WIDTH 19.1 % (11.5-14.5); WHITE BLOOD COUNT 13.4 10^3/ul (4.8-10.8)
[2017-02-24 07:08] LABS: POSITIVE DIFF @See below
[2017-02-24] MEDS: ALBUTEROL/IPRATROPIUM (NEB) 3 ML AMP HHN SCH ×2 (07:15→14:41)
[2017-02-24 07:48] LABS: Allen Test ACCEPTAB; Arterial Base Excess 1.8 mmol/L (-3.0-3); Arterial COHb 0.3 % (0.0-3.0); Arterial Fraction of Oxyhgb 92.7 % (93.0-99.0); Arterial HCO3 26.6 mmol/L (22.0-26.0); Arterial MetHb 0.5 % (0.0-1.5); Arterial Total Hemglobin 10.6 g/dl (12.0-18.0); Blood Gas IEPAP 16/6; MODE MASK - BIPAP
[2017-02-24] MEDS: MEROPENEM 1 GM/50ML(PMX) 50 ML IVPB SCH ×2 (08:54→20:31)
[2017-02-24] MEDS: BALSAM PERU/CASTOR OIL 60 GM TUBE TOP SCH (08:55)
[2017-02-24] MEDS: MUPIROCIN 2% 22 GM OINT TOP SCH (08:55)
[2017-02-24] MEDS: COLLAGENASE 30 GM TUBE TOP SCH (08:56)
[2017-02-24] MEDS: METOPROLOL 25 MG TAB PO SCH ×2 (08:57→20:09)
[2017-02-24] MEDS: MIDODRINE 5 MG TAB PO SCH ×4 (08:57→20:31)
--- NOTE | 2017-02-24 09:57 | RADRPT ---
PROCEDURE: XR Chest. CLINICAL INDICATION: pna chf TECHNIQUE: Single frontal view of the chest was obtained COMPARISON: Chest x-ray 02/22/2017 FINDINGS: Evaluation is limited by suboptimal patient positioning. The cardiac silhouette remains enlarged. There are atherosclerotic calcifications of the aortic arch. Moderate right pleural effusion and small pleural effusion are likely stable compared to prior study . Underlying atelectasis and / or consolidation cannot be excluded. No pneumothorax is identified. There is dextrocurvature of the thoracic spine. Degenerative changes of the visualized spine are al so noted. IMPRESSION: 1. Suboptimal positioning limits evaluation. 2. Cardiomegaly. 3. Thoracic aortic atherosclerotic disease. 4. Moderate right pleural effusion, likely stable. 5. Small pleural effusion, likely stable. RPTAT: AAII Physician Stefan Date Time Electronically viewed and signed by Eze Andujar Physician on 02/24/2017 09:57 /
[2017-02-24] MEDS: FLUCONAZOLE 200 MG/NS (PMX) 100 ML IVPB SCH (10:23)
--- NOTE | 2017-02-24 11:01 | CONS ---
Date/Time of Note Date/Time of Note DATE: 02/24/17 TIME: 10:59 Consult Date/Type/Reason Admit Date/Time Feb 11, 2017 at 05:28 Initial Consult Date 02/21/17 Type of Consultation: Pulmonary Ordering Provider: BONIFACIO COWART Subjective Patient continues BiPAP. She is arousable but has significant neuromuscular weakness. Objective Vital Signs Date Time Temp Pulse Resp B/P Pulse Ox O2 Delivery O2 Flow Rate FiO2 02/24/17 10:45 99 30 114/60 98 02/24/17 10:00 BIPAP 02/24/17 08:00 50 02/24/17 08:00 98.0 02/23/17 02:43 4.0 Intake and Output 02/23/17 02/23/17 02/24/17 15:00 23:00 07:00 Intake Total 432.50 ml 499.35 ml 454.96 ml Output Total 340 ml 235 ml 270 ml Balance 92.50 ml 264.35 ml 184.96 ml Exam GENERAL: Elderly lady on noninvasive positive pressure ventilation. VITAL SIGNS: see below. HEENT: Pupils equal, round, and reactive to light. CARDIAC: S1, S2, 1/6 systolic ejection murmur CHEST: Diminished air entry bilaterally. ABDOMEN: Mildly distended. Bowel sounds present no guarding or rebound EXTREMITIES: No cyanosis, clubbing edema +2 NEUROLOGIC: Generalized weakness Results/Medications Result Diagram: 02/24/17 0320 02/24/17 0320 Results 24 hrs Laboratory Tests Test 02/24/17 03:20 02/24/17 07:00 White Blood Count 13.4 H Red Blood Count 3.01 L Hemoglobin 8.7 L Hematocrit 28.3 L Mean Corpuscular Volume 94.0 Mean Corpuscular Hemoglobin 28.9 L Mean Corpuscular Hemoglobin Concent 30.7 L Red Cell Distribution Width 19.1 H Platelet Count 75 L Mean Platelet Volume Neutrophils % 84.0 H Lymphocytes % 12.1 L Monocytes % 2.2 Eosinophils % 0.4 Basophils % 0.3 Nucleated Red Blood Cells % 0.2 H Neutrophils # 11.3 H Lymphocytes # 1.6 Monocytes # 0.3 Eosinophils # 0.1 Basophils # 0.0 Nucleated Red Blood Cells # 0.0 Sodium Level 156 H Potassium Level 3.7 Chloride Level 115 H Carbon Dioxide Level 31 Anion Gap 14 Blood Urea Nitrogen 28 H Creatinine 0.75 Glucose Level 158 Calcium Level 8.6 Phosphorus Level 3.9 Magnesium Level 2.3 Blood Gas Specimen Source Blood arterial Arterial Blood Date Drawn 02/24/2017 7:30:23 AM Arterial Blood pH (Temp corrected) 7.410 Arterial Blood pCO2 (Temp correct) 43.0 Arterial Blood pO2 (Temp corrected) 70.1 L Arterial Blood HCO3 26.6 H Arterial Blood Base Excess 1.8 Arterial Blood Oxygen Saturation 93.4 L Shreyas Test ACCEPTAB Arterial Blood Gas Puncture Site Left Radial Arterial Blood Carboxyhemoglobin 0.3 Arterial Blood Methemoglobin 0.5 Blood Gas A-a O2 Differential 238.0 H Oxyhemoglobin Percent 92.7 L Total Hemoglobin 10.6 L Blood Gas Temperature 37.0 Blood Gas Respiration Rate 16.0 Blood Gas Actual Respiration Rate 32 Blood Gas Modality MASK - BIPAP FiO2 50.0 Blood Gas IPAP/EPAP Ratio 16/6 Blood Gas Notified Whom JLD Blood Gas Notified Time 02/24/2017 7:48:01 AM Medications Current Medications Metoprolol Tartrate (Lopressor) 25 mg BID PO Last administered on 02/20/17 09: 53; Admin Dose 25 MG; Start 02/11/17 at 21:00 Ondansetron HCl (Zofran Inj) 4 mg Q6H PRN IV NAUSEA AND/OR VOMITING Last administered on 02/13/17 00:36; Admin Dose 4 MG; Start 02/11/17 at 10:00 Acetaminophen (Tylenol Tab) 650 mg Q6H PRN PO PAIN LEVEL 1-3 OR FEVER; Start at 10:00 Morphine Sulfate (morphine) 2 mg Q4H PRN IV PAIN LEVEL 7-10 Last administered on 02/24/17 01:00; Admin Dose 2 MG; Start 02/11/17 at 10:00 Docusate Sodium (Colace) 100 mg Q12H PRN PO CONSTIPATION; Start 02/11/17 at 10: 00 Bisacodyl 10 mg 10 mg DAILY PRN [place] CONSTIPATION; Start 02/11/17 at 10:00 Meropenem/Sodium Chloride (Merrem 1 Gm/50 ml (Pmx)) 50 ml @ 200 mls/hr Q12 IVPB Last administered on 02/24/17 08:54; Admin Dose 200 MLS/HR; Start at 18:00 Miscellaneous Information (Pending Santyl Order For Wound Care) This patient prado... PRN PRN XX WOUND CARE; Start 02/11/17 at 19:00 Collagenase (Santyl) 1 applic DAILY TOP Last administered on 02/24/17 08:56; Admin Dose 1 APPLIC; Start 02/12/17 at 13:30 Diphenhydramine HCl 25 mg 25 mg Q6H PRN IV ITCHING Last administered on 03:22; Admin Dose 25 MG; Start 02/12/17 at 14:00 Total Parenteral Nutrition (Tpn) 1,000 ml @ 40 mls/hr Q24H IV Last administered on 02/23/17 17:56; Admin Dose 40 MLS/HR; Start 02/12/17 at 18:00 Mupirocin (Bactroban) 1 applic BID TOP Last administered on 02/24/17 08:55; Admin Dose 1 APPLIC; Start 02/15/17 at 21:00 Alprazolam (Xanax) 0.25 mg Q12H PRN PO ANXIETY Last administered on 02/23/17 02:09; Admin Dose 0.25 MG; Start 02/19/17 at 14:00 Miscellaneous Information ONCE XX ; Start 02/21/17 at 15:30 Norepinephrine 16 mg/Dextrose 500 ml @ 1.87 mls/hr TITRATE IV Last administered on 02/23/17 15:29; Admin Dose 15 MLS/HR; Start 02/21/17 at 17:30 Sodium Chloride 250 ml @ 250 mls/hr Q1H PRN IV abp below 90 Last administered on 02/21/17 20:08; Admin Dose 250 MLS/HR; Start 02/21/17 at 17:30 Fluconazole (Diflucan 200 Mg/ NS (Pmx)) 100 ml @ 100 mls/hr Q24H IVPB Last administered on 02/24/17 10:23; Admin Dose 100 MLS/HR; Start 02/22/17 at 11:00 Pantoprazole (Protonix Iv) 40 mg DAILY@06 IV Last administered on 02/24/17 05: 23; Admin Dose 40 MG; Start 02/23/17 at 06:00 Midodrine (Proamatine) 5 mg TID PO ; Start 02/23/17 at 13:30 Lorazepam (Ativan) 0.5 mg Q8H PRN IV AGITATION/ANXIETY; Start 02/23/17 at 13:30 Miscellaneous Information (* Miscellaneous Pharmacy Order) ALL IVPB NEED TO BE IN D5W ONCE XX ; Start 02/24/17 at 09:00; Stop 02/24/17 at 12:00 Miscellaneous Information (* Miscellaneous Pharmacy Order) DAILY XX ; Start at 09:00 Assessment/Plan Chief Complaint/Hosp Course Assessment 1. Recent severe pancreatitis completed by pseudocyst pending drainage. 2. Anemia of unclear etiology currently not stable for EGD given severe hypoxemia, she would require intubation and mechanical ventilation 3. Hypoxemic respiratory failure combination of volume overload and right pleural effusion. Chest x-ray shows moderate right pleural effusion with evidence of pulmonary edema. Patient remains BiPAP dependent. Hypoxemic respiratory failure likely secondary to combination of factors not just her pleural effusion. Significant neuromuscular weakness. Resulting in alveolar hypoventilation and hypercapnia. 4. Hypotension possibly secondary to ongoing sepsis/inflammatory process. 5. Nutrition continues TPN. 6. Tachycardia likely secondary to ongoing abdominal condition. 7. History of thromboembolic disease status post IVC filter Plan 1. Ultrasound-guided thoracentesis with pleural fluid studies right lung. 2. Consider continuing diuretics. 3. Consider jejunostomy tube for feeding and DC TPN if possible. This would help decrease the amount of fluid she has on board. 4. Continue DVT and GI prophylaxis This patient's condition deteriorates today she will require intubation mechanical ventilation. This may make it easier for us to manage her volume status, pleural effusions, and hypernatremia. Problems: SLAVA MCBRIDE MD, [facility] Feb 24, 2017 11:01
[2017-02-24 11:10] LABS: FLUID TOTAL PROTEIN < 2.0 g/dl; FLUID TYPE SEND OUT
[2017-02-24 11:11] LABS: FLUID GLUCOSE 70 mg/dl; FLUID TYPE THORACENTESIS FLUID
[2017-02-24] MEDS: PROPOFOL 100 ML IV SCH (13:08)
[2017-02-24 14:08] LABS: AADO2 Arterial 562.4 mmHg (7.0-24.0); Allen Test ACCEPTAB; Arterial Base Excess 3.3 mmol/L (-3.0-3); Arterial COHb 0.3 % (0.0-3.0); Arterial Fraction of Oxyhgb 97.2 % (93.0-99.0); Arterial HCO3 26.6 mmol/L (22.0-26.0); Arterial MetHb 0.6 % (0.0-1.5); Arterial Total Hemglobin 10.5 g/dl (12.0-18.0); MODE VENT - AC
--- NOTE | 2017-02-24 14:57 | RADRPT ---
PROCEDURE: US guided right thoracentesis. CLINICAL INDICATION: Shortness of breath. Right pleural effusion. TECHNIQUE: Prior to the procedure, informed consent was obtained. The risks, benefits, and alternatives were e xplained to the patient or the patient's family, including but not limited to bleeding, infection, p ain, visceral or vascular damage, shock, pneumothorax, chest tube placement, air embolism, and . The patient or the patient's family understood the risks and the alternatives and wished to proce ed with the study. Informed written consent was obtained. A procedural pause was performed. The patient's name, date of , and procedure to be performed were verified. Ultrasound of the right hemithorax was performed in the axial and sagittal planes. A right pleural e ffusion is noted. Utilizing ultrasound guidance, optimal location for entry to the pleural cavity wa s ascertained. The overlying skin was prepped and draped in the usual sterile fashion. Approximate ly 10 ml of 1% Xylocaine was injected locally for pain control. Using ultrasound guidance, a 5-Fren ch Yueh catheter was introduced into the right pleural space without difficulty. Fluid was aspirated . COMPARISON: None. FINDINGS: Initial ultrasound demonstrates fluid in the right pleural space. Approximately 0.100 liters of ser ous fluid was aspirated and sent to the laboratory. IMPRESSION: 1. Satisfactory ultrasound-guided right thoracentesis. RPTAT: QQ .Joel Diamond MD, Date Time Electronically viewed and signed by .Joel Diamond MD, on 02/24/2017 14:57 .R/
--- NOTE | 2017-02-24 15:10 | PN ---
Date/Time of Note Date/Time of Note DATE: 02/24/17 TIME: 15:07 Assessment/Plan VTE Prophylaxis VTE Prophylaxis Intervention: contraindicated VTE Contraindication Reason: bleeding Lines/Catheters IV Catheter Type (from Nrs): PICC Line Central line still needed: Yes Urinary Cath still in place: Yes Reason Cath still needed: urinary retention Assessment/Plan Assessment/Plan Acute respiratory failure management c/o pulmonary * Anemia hemoglobin 8.7 * Refused EGD * Pancreatitis with Pancreatic pseudocyst/awaiting drainage * Coagulopathy * H/O tube cholecystostomy * H/O ERCP removal of stone with biliary stent * Plan * Continue present regimen * Surgical management of pseudocyst * Endoscopic attempts at cystogastrostomy would require tertiary facility * IR drainage once coagulation permits * monitor hemoglobin and hematocrit daily and transfuse per protocol * further orders will depend on clinical course * case discussed with DR Hill Subjective 24 Hr Interval Summary Free Text/Dictation * Course reviewed with RN * Patient seen and examined * Patient orally intubated * No active bleeding Exam/Review of Systems Vital Signs Vitals Vital Signs Date Time Temp Pulse Resp B/P Pulse Ox O2 Delivery O2 Flow Rate FiO2 02/24/17 14:30 80 20 87/54 100 02/24/17 14:00 Mechanical Ventilator 02/24/17 13:00 100 02/24/17 12:00 97.6 02/23/17 02:43 4.0 Intake and Output 02/23/17 02/23/17 02/24/17 15:00 23:00 07:00 Intake Total 432.50 ml 499.35 ml 454.96 ml Output Total 340 ml 235 ml 270 ml Balance 92.50 ml 264.35 ml 184.96 ml Exam Constitutional: frail Head: normocephalic ENMT: intubated Neck: non-tender, supple Respiratory: crackles/rales, diminished breath sounds, other (on ventilator) Cardiovascular: nl pulses, regular rate and rhythm Gastrointestinal: non-tender, soft Musculoskeletal: muscle weakness, swelling Extremities: pitting pedal edema Neurological: other (sedated) Skin: nl turgor, No rash or lesions Lymph: nl lymph nodes Results Result Diagram: 02/24/17 0320 02/24/17 0320 Results 24 hrs Laboratory Tests Test 02/24/17 03:20 02/24/17 07:00 02/24/17 09:32 02/24/17 14:00 White Blood Count 13.4 H Red Blood Count 3.01 L Hemoglobin 8.7 L Hematocrit 28.3 L Mean Corpuscular Volume 94.0 Mean Corpuscular Hemoglobin 28.9 L Mean Corpuscular Hemoglobin Concent 30.7 L Red Cell Distribution Width 19.1 H Platelet Count 75 L Mean Platelet Volume Neutrophils % 84.0 H Lymphocytes % 12.1 L Monocytes % 2.2 Eosinophils % 0.4 Basophils % 0.3 Nucleated Red Blood Cells % 0.2 H Neutrophils # 11.3 H Lymphocytes # 1.6 Monocytes # 0.3 Eosinophils # 0.1 Basophils # 0.0 Nucleated Red Blood Cells # 0.0 Sodium Level 156 H Potassium Level 3.7 Chloride Level 115 H Carbon Dioxide Level 31 Anion Gap 14 Blood Urea Nitrogen 28 H Creatinine 0.75 Glucose Level 158 Calcium Level 8.6 Phosphorus Level 3.9 Magnesium Level 2.3 Blood Gas Specimen Source Blood arterial Blood arterial Arterial Blood Date Drawn 02/24/2017 7:30:23 AM 02/24/2017 2:00:36 PM Arterial Blood pH (Temp corrected) 7.410 7.489 H Arterial Blood pCO2 (Temp correct) 43.0 35.8 Arterial Blood pO2 (Temp corrected) 70.1 L 114.8 H Arterial Blood HCO3 26.6 H 26.6 H Arterial Blood Base Excess 1.8 3.3 H Arterial Blood Oxygen Saturation 93.4 L 98.1 Shreyas Test ACCEPTAB ACCEPTAB Arterial Blood Gas Puncture Site Left Radial Left Radial Arterial Blood Carboxyhemoglobin 0.3 0.3 Arterial Blood Methemoglobin 0.5 0.6 Blood Gas A-a O2 Differential 238.0 H 562.4 H Oxyhemoglobin Percent 92.7 L 97.2 Total Hemoglobin 10.6 L 10.5 L Blood Gas Temperature 37.0 37.0 Blood Gas Respiration Rate 16.0 20.0 Blood Gas Actual Respiration Rate 32 20 Blood Gas Modality MASK - BIPAP VENT - AC FiO2 50.0 100.0 Blood Gas IPAP/EPAP Ratio 16/6 Blood Gas Notified Whom HOLLAND LINO Blood Gas Notified Time 02/24/2017 7:48:01 AM 02/24/2017 2:08:14 PM Body Fluid Type THORACENTESIS FLUID Body Fluid Glucose 70 Body Fluid Total Protein < 2.0 Body Fluid Lactate Dehydrogenase Blood Gas Tidal Volume 500.0 Blood Gas Low PEEP Setting 5.0 Medications Medications Current Medications Metoprolol Tartrate (Lopressor) 25 mg BID PO Last administered on 02/20/17 09: 53; Admin Dose 25 MG; Start 02/11/17 at 21:00 Ondansetron HCl (Zofran Inj) 4 mg Q6H PRN IV NAUSEA AND/OR VOMITING Last administered on 02/13/17 00:36; Admin Dose 4 MG; Start 02/11/17 at 10:00 Acetaminophen (Tylenol Tab) 650 mg Q6H PRN PO PAIN LEVEL 1-3 OR FEVER; Start at 10:00 Morphine Sulfate (morphine) 2 mg Q4H PRN IV PAIN LEVEL 7-10 Last administered on 02/24/17 01:00; Admin Dose 2 MG; Start 02/11/17 at 10:00 Docusate Sodium (Colace) 100 mg Q12H PRN PO CONSTIPATION; Start 02/11/17 at 10: 00 Bisacodyl 10 mg 10 mg DAILY PRN [place] CONSTIPATION; Start 02/11/17 at 10:00 Meropenem/Sodium Chloride (Merrem 1 Gm/50 ml (Pmx)) 50 ml @ 200 mls/hr Q12 IVPB Last administered on 02/24/17 08:54; Admin Dose 200 MLS/HR; Start at 18:00 Miscellaneous Information (Pending Santyl Order For Wound Care) This patient prado... PRN PRN XX WOUND CARE; Start 02/11/17 at 19:00 Collagenase (Santyl) 1 applic DAILY TOP Last administered on 02/24/17 08:56; Admin Dose 1 APPLIC; Start 02/12/17 at 13:30 Diphenhydramine HCl 25 mg 25 mg Q6H PRN IV ITCHING Last administered on 03:22; Admin Dose 25 MG; Start 02/12/17 at 14:00 Total Parenteral Nutrition (Tpn) 1,000 ml @ 40 mls/hr Q24H IV Last administered on 02/23/17 17:56; Admin Dose 40 MLS/HR; Start 02/12/17 at 18:00 Mupirocin (Bactroban) 1 applic BID TOP Last administered on 02/24/17 08:55; Admin Dose 1 APPLIC; Start 02/15/17 at 21:00 Alprazolam 0.25 mg 0.25 mg Q12H PRN PO ANXIETY Last administered on 02/23/17 02:09; Admin Dose 0.25 MG; Start 02/19/17 at 14:00 Norepinephrine 16 mg/Dextrose 500 ml @ 1.87 mls/hr TITRATE IV Last administered on 02/23/17 15:29; Admin Dose 15 MLS/HR; Start 02/21/17 at 17:30 Sodium Chloride 250 ml @ 250 mls/hr Q1H PRN IV abp below 90 Last administered on 02/21/17 20:08; Admin Dose 250 MLS/HR; Start 02/21/17 at 17:30 Fluconazole (Diflucan 200 Mg/ NS (Pmx)) 100 ml @ 100 mls/hr Q24H IVPB Last administered on 02/24/17 10:23; Admin Dose 100 MLS/HR; Start 02/22/17 at 11:00 Pantoprazole (Protonix Iv) 40 mg DAILY@06 IV Last administered on 02/24/17 05: 23; Admin Dose 40 MG; Start 02/23/17 at 06:00 Midodrine (Proamatine) 5 mg TID PO Last administered on 02/24/17 13:21; Admin Dose 5 MG; Start 02/23/17 at 13:30 Lorazepam (Ativan) 0.5 mg Q8H PRN IV AGITATION/ANXIETY; Start 02/23/17 at 13:30 Miscellaneous Information DAILY XX ; Start 02/25/17 at 09:00 Propofol (Diprivan) 100 ml @ 1.86 mls/hr Q12H IV Last administered on 13:08; Admin Dose 1.86 MLS/HR; Start 02/24/17 at 13:00 LUZMARIA SPAIN NP Feb 24, 2017 15:10
--- NOTE | 2017-02-24 15:18 | RADRPT ---
AMENDMENT: 02/24/2017 5:03:22 PM Joel Diamond MD The orogastric tube tip is in the stomach. PROCEDURE: XR Chest. CLINICAL INDICATION: ET TUBE PLACEMENT TECHNIQUE: Single frontal view of the chest was obtained COMPARISON: Chest x-ray of 02/24/2017 at 09:55 a.m. FINDINGS: There is a new endotracheal tube with tip projecting approximately 3.5 cm above the kavon. Right PICC line in stable position, terminating in the mid superior vena cava. An inferior vena cava is faintly seen projecting over the right upper quadrant right paraspinal kumar on. The cardiac silhouette remains enlarged. There are atherosclerotic calcifications of the thoracic ao rta. There is increase pulmonary vascular congestion. There is slightly improved aeration of the right lower lung. However, hazy opacities persist in the mid and lower lungs and likely represent partially layering bilateral pleural effusions. Underlyin g atelectasis and/or consolidation cannot be excluded. No pneumothorax is identified. There is dextroscoliosis of the thoracic spine. Degenerative changes of the visualized spine are al so noted. IMPRESSION: 1. Interval placement of endotracheal tube which terminates approximately 3.5 cm above the kavon. 2. Interval slight improved aeration of the right lower lung. 3. Persistent hazy opacities in the mid and lower lungs bilaterally compatible with layering pleura l effusions, not significantly change compared to prior study. 4. Cardiomegaly. 5. Thoracic aortic atherosclerotic disease. RPTAT: PP .Joel Diamond MD, MD Date Time Electronically viewed and signed by .Joel Diamond MD, on 02/24/2017 17:03 .R/
--- NOTE | 2017-02-24 15:27 | RADRPT ---
PROCEDURE: XR Chest. CLINICAL INDICATION: Status post thoracentesis. TECHNIQUE: Single frontal chest x-ray. COMPARISON: 02/24/2017 at 05:21 AM FINDINGS: There is no discernible change in the moderate right pleural effusion and small pleural effusion are likely stable compared to prior study. There is no evidence of pneumothorax. A skin fold overlie s the right hemithorax. The cardiac silhouette remains enlarged. There are atherosclerotic calcific ations of the aortic arch. Moderate congestion and interstitial edema persist, increased. Underlyin g atelectasis and / or consolidation cannot be excluded. No pneumothorax is identified. There is dex trocurvature of the thoracic spine. Degenerative changes of the visualized spine are also noted. A right PICC has its tip in the SVC. IMPRESSION: 1. No discernible change in moderate right sided pleural effusion. No evidence of pneumohtorax. 2. Cardiomegaly with interval increased moderate congestion and interstitial edema. 3. Thoracic aortic atherosclerotic disease. 4. Small to moderate left pleural effusion, likely stable. RPTAT: RR .Alexis Sweeney MD, MD Date Time Electronically viewed and signed by .Alexis Sweeney MD, on 02/24/2017 15:27 .A/
--- NOTE | 2017-02-24 16:16 | PN ---
Date/Time of Note Date/Time of Note DATE: 02/24/17 TIME: 16:12 Assessment/Plan VTE Prophylaxis VTE Prophylaxis Intervention: other (S/p IVC filter ) Lines/Catheters IV Catheter Type (from Nrsg): PICC Line Central line still needed: Yes (for IV access and TPN) Urinary Cath still in place: Yes Reason Cath still needed: other (indicate) (monitor UOP ) Assessment/Plan Assessment/Plan 86 yo female with: 1. Acute Respiratory failure, in setting of pleural effusions, atelectasis, severe anemia and poor overall clinical status. Patient in ICU and had to be intubated due to deteriorating respiratory status. CXR still with volume overload and pleural effusion even s/p thoracentesis 02/20 with -300 cc and another right thoracentesis today with removal of less than 100 cc On mechanical ventilation, patient in the volume overload however even her hemodynamics and ongoing hypernatremia apparently her Lasix has been held. Will discuss with nephrology may need to put her on a Bumex drip or resume Lasix once we have better hemodynamics Of note she did have bilateral thoracentesis at [facility] on her admission there last month 2. Severe pancreatitis with pseudocyst, currently on TPN and clear liquids. CAT scan of the abdomen and pelvis has been compared to the one done at [facility] approximately 3 weeks ago, cholecystostomy tube has been removed however there is concern as the patient has a new fluid collection in addition of the previous pseudocyst also previous pseudocyst seems to have increased in size and there is concern for possible infection. Still waiting for drainage of 2nd cyst but INR at 1.4 and patient clinically declined further today requiring intubation. Continue Meropenem for now. 3. Acute on chronic anemia with again drop of hemoglobin to 6.0 this AM s/p transfusion of 2 units of packed red blood cells and 1 unit of FFP. Hb stable x 4 days Bleeding scan was not done due to respiratory distress and needs for intermittent BiPAP GI following. No signs of acute bleeding so far however patient does have positive fecal occult blood. Appreciate GI consult, patient and her son declined EGD prior. Appreciate recommendations of Dr Hannah, may still needs CT guided drainage of 2nd pseudocyst by IR, patient currently mostly n.p.o. and INR has been better however patient with respiratory distress not a candidate for IR procedure currently. 4. Hypotension: Based on records patient has been actually put on midodrine 5 mg p.o. tid due to ongoing hypotension even at discharge from [facility], Now the patient intubated, she is on Levophed for blood pressure support while on propofol. Continue Abx. 5. Urinary retention, status post acute kidney injury at [facility] , renal function seems to be much better, Elder catheter in place. Repeat UA wnl , repeat Urine cx negative. 6. Hypernatremia, Nutrition: Slowly improving with TPN adjustments TPN to be adjusted per pharmacy to adjust daily based on electrolytes. Repleting electrolytes additionally as needed. Appreciate nephrology assistance from Dr. Partida 7. Sinus Tachycardia: Per report from [facility] patient has sinus tachycardia. Resolved as patient in less distress currently after intubation and sedation. 8. Venous thromboembolism with episode of DVT, status post IVC filter 9. Mild coagulopathy: PTT wnl, Vitamin K and FFP as needed for INR 1.4 but to be noted patient with VTE, s/p IVC filter . We will recheck Dopplers lower extremity Prophylaxis: Protonix for GI prophylaxis, SCDs and status post IVC filter for DVT prophylaxis Disposition: ICU now, intubated on mechanical ventilation , attempted repeat thoracentesis right pleural effusion with very minimal output. Pending CT guided drainage of new pseudocyst by IR if possible Full code Subjective 24 Hr Interval Summary Free Text/Dictation Patient's respiratory distress worsened and did require Intubation and mechanical ventilation. Attempted thoracentesis again of right pleural effusion, ?loculation at minimal drainage <100 On levo while on propofol Appreciate assistance from GI and Pulmonary Exam/Review of Systems Vital Signs Vitals Vital Signs Date Time Temp Pulse Resp B/P Pulse Ox O2 Delivery O2 Flow Rate FiO2 02/24/17 15:27 65 21 98 70 02/24/17 14:30 87/54 02/24/17 14:00 Mechanical Ventilator 02/24/17 12:00 97.6 02/23/17 02:43 4.0 Intake and Output 02/23/17 02/23/17 02/24/17 15:00 23:00 07:00 Intake Total 432.50 ml 499.35 ml 454.96 ml Output Total 340 ml 235 ml 270 ml Balance 92.50 ml 264.35 ml 184.96 ml Exam Constitutional: frail, other (intubated and sedated ) Respiratory: diminished breath sounds (bilaterally ) Cardiovascular: nl pulses, regular rate and rhythm Gastrointestinal: non-tender, soft Musculoskeletal: nl extremities to inspection, other (no edema, clubbing or cynaosis ) Extremities: normal pulses, other Neurological: [employer]GRAM DIRECTOR II-XII intact, confused, lethargic, nl mental status, other ( severe dyspnea ) Results Result Diagram: 02/24/17 0320 02/24/17 0320 Results 24 hrs Laboratory Tests Test 02/24/17 03:20 02/24/17 07:00 02/24/17 09:32 02/24/17 14:00 White Blood Count 13.4 H Red Blood Count 3.01 L Hemoglobin 8.7 L Hematocrit 28.3 L Mean Corpuscular Volume 94.0 Mean Corpuscular Hemoglobin 28.9 L Mean Corpuscular Hemoglobin Concent 30.7 L Red Cell Distribution Width 19.1 H Platelet Count 75 L Mean Platelet Volume Neutrophils % 84.0 H Lymphocytes % 12.1 L Monocytes % 2.2 Eosinophils % 0.4 Basophils % 0.3 Nucleated Red Blood Cells % 0.2 H Neutrophils # 11.3 H Lymphocytes # 1.6 Monocytes # 0.3 Eosinophils # 0.1 Basophils # 0.0 Nucleated Red Blood Cells # 0.0 Sodium Level 156 H Potassium Level 3.7 Chloride Level 115 H Carbon Dioxide Level 31 Anion Gap 14 Blood Urea Nitrogen 28 H Creatinine 0.75 Glucose Level 158 Calcium Level 8.6 Phosphorus Level 3.9 Magnesium Level 2.3 Blood Gas Specimen Source Blood arterial Blood arterial Arterial Blood Date Drawn 02/24/2017 7:30:23 AM 02/24/2017 2:00:36 PM Arterial Blood pH (Temp corrected) 7.410 7.489 H Arterial Blood pCO2 (Temp correct) 43.0 35.8 Arterial Blood pO2 (Temp corrected) 70.1 L 114.8 H Arterial Blood HCO3 26.6 H 26.6 H Arterial Blood Base Excess 1.8 3.3 H Arterial Blood Oxygen Saturation 93.4 L 98.1 Shreyas Test ACCEPTAB ACCEPTAB Arterial Blood Gas Puncture Site Left Radial Left Radial Arterial Blood Carboxyhemoglobin 0.3 0.3 Arterial Blood Methemoglobin 0.5 0.6 Blood Gas A-a O2 Differential 238.0 H 562.4 H Oxyhemoglobin Percent 92.7 L 97.2 Total Hemoglobin 10.6 L 10.5 L Blood Gas Temperature 37.0 37.0 Blood Gas Respiration Rate 16.0 20.0 Blood Gas Actual Respiration Rate 32 20 Blood Gas Modality MASK - BIPAP VENT - AC FiO2 50.0 100.0 Blood Gas IPAP/EPAP Ratio 16/6 Blood Gas Notified Whom JLD JLD Blood Gas Notified Time 02/24/2017 7:48:01 AM 02/24/2017 2:08:14 PM Body Fluid Type THORACENTESIS FLUID Body Fluid Glucose 70 Body Fluid Total Protein < 2.0 Body Fluid Lactate Dehydrogenase Blood Gas Tidal Volume 500.0 Blood Gas Low PEEP Setting 5.0 Medications Medications Current Medications Metoprolol Tartrate (Lopressor) 25 mg BID PO Last administered on 02/20/17 09: 53; Admin Dose 25 MG; Start 02/11/17 at 21:00 Ondansetron HCl (Zofran Inj) 4 mg Q6H PRN IV NAUSEA AND/OR VOMITING Last administered on 02/13/17 00:36; Admin Dose 4 MG; Start 02/11/17 at 10:00 Acetaminophen (Tylenol Tab) 650 mg Q6H PRN PO PAIN LEVEL 1-3 OR FEVER; Start at 10:00 Morphine Sulfate (morphine) 2 mg Q4H PRN IV PAIN LEVEL 7-10 Last administered on 02/24/17 01:00; Admin Dose 2 MG; Start 02/11/17 at 10:00 Docusate Sodium (Colace) 100 mg Q12H PRN PO CONSTIPATION; Start 02/11/17 at 10: 00 Bisacodyl 10 mg [address] CONSTIPATION; Start 02/11/17 at 10:00 Meropenem/Sodium Chloride (Merrem 1 Gm/50 ml (Pmx)) 50 ml @ 200 mls/hr Q12 IVPB Last administered on 02/24/17 08:54; Admin Dose 200 MLS/HR; Start at 18:00 Miscellaneous Information (Pending Santyl Order For Wound Care) This patient prado... PRN PRN XX WOUND CARE; Start 02/11/17 at 19:00 Collagenase (Santyl) 1 applic DAILY TOP Last administered on 02/24/17 08:56; Admin Dose 1 APPLIC; Start 02/12/17 at 13:30 Diphenhydramine HCl 25 mg 25 mg Q6H PRN IV ITCHING Last administered on 03:22; Admin Dose 25 MG; Start 02/12/17 at 14:00 Total Parenteral Nutrition (Tpn) 1,000 ml @ 40 mls/hr Q24H IV Last administered on 02/23/17 17:56; Admin Dose 40 MLS/HR; Start 02/12/17 at 18:00 Mupirocin (Bactroban) 1 applic BID TOP Last administered on 02/24/17 08:55; Admin Dose 1 APPLIC; Start 02/15/17 at 21:00 Alprazolam 0.25 mg 0.25 mg Q12H PRN PO ANXIETY Last administered on 02/23/17 02:09; Admin Dose 0.25 MG; Start 02/19/17 at 14:00 Norepinephrine 16 mg/Dextrose 500 ml @ 1.87 mls/hr TITRATE IV Last administered on 02/23/17 15:29; Admin Dose 15 MLS/HR; Start 02/21/17 at 17:30 Sodium Chloride 250 ml @ 250 mls/hr Q1H PRN IV abp below 90 Last administered on 02/21/17 20:08; Admin Dose 250 MLS/HR; Start 02/21/17 at 17:30 Fluconazole (Diflucan 200 Mg/ NS (Pmx)) 100 ml @ 100 mls/hr Q24H IVPB Last administered on 02/24/17 10:23; Admin Dose 100 MLS/HR; Start 02/22/17 at 11:00 Pantoprazole (Protonix Iv) 40 mg DAILY@06 IV Last administered on 02/24/17 05: 23; Admin Dose 40 MG; Start 02/23/17 at 06:00 Midodrine (Proamatine) 5 mg TID PO Last administered on 02/24/17 13:21; Admin Dose 5 MG; Start 02/23/17 at 13:30 Lorazepam (Ativan) 0.5 mg Q8H PRN IV AGITATION/ANXIETY; Start 02/23/17 at 13:30 Miscellaneous Information DAILY XX ; Start 02/25/17 at 09:00 Propofol (Diprivan) 100 ml @ 1.86 mls/hr Q12H IV Last administered on t 13:08; Admin Dose 1.86 MLS/HR; Start 02/24/17 at 13:00 BONIFACIO COWART Feb 24, 2017 16:16
--- NOTE | 2017-02-24 17:02 | RADRPT ---
PROCEDURE: US bilateral lower extremity veins. CLINICAL INDICATION: Bilateral leg pain and swelling. TECHNIQUE: Multiple longitudinal and transverse images of the bilateral lower extremity veins were obtained with baldwin scale and color Doppler imaging. The common femoral vein, femoral vein, and popl iteal vein were evaluated. 2D grayscale measurements with compression sonography, color Doppler, and pulsed Doppler with augmentation. COMPARISON: No prior studies are available for comparison. FINDINGS: The bilateral common femoral, femoral and popliteal veins are normally compressible throughout. Col or flow demonstrates normal filling of the vessels. Normal waveforms are visualized and there is no rmal response to augmentation. IMPRESSION: 1. No evidence of deep vein thrombosis involving either lower extremity. RPTAT: QQ .Joel Diamond MD, MD Date Time Electronically viewed and signed by .Joel Diamond MD, on 02/24/2017 17:01 .R/
[2017-02-24] MEDS: TPN 1,000 ML IV SCH (17:24)
--- NOTE | 2017-02-24 21:10 | RADRPT ---
PROCEDURE: XR Chest. CLINICAL INDICATION: The patient is status post intubation. TECHNIQUE: 2 frontal views of the chest were obtained. COMPARISON: Chest dated today, about 7 hours ago. FINDINGS: Endotracheal intubation is seen with tip about 55 mm above the kavon. Nasogastric tube is seen wit h tip in the stomach, off the bottom of the film. Right central venous line is seen with tip in the superior vena cava. Cardiomegaly with atherosclerotic calcifications in the thoracic aorta. Moderate right pleural effu juan and small left pleural effusion with associated atelectasis versus airspace disease in the righ t lung. Left pleural effusion appears decreased over the interval. No signs of pleural fluid or pneu mothorax are seen. The osseous structures and soft tissues are unremarkable. IVC filter IMPRESSION: 1. Endotracheal intubation is seen with tip about 55 mm above the kavon. 2. Nasogastric tube is seen with tip in the stomach. 3. Right central venous line is seen with tip in the superior vena cava. 4. Moderate right pleural effusion. 5. Small left pleural effusion, which appears decreased over the interval. RPTAT: UU Physician Wendi Date Time Electronically viewed and signed by Physician Wendi on 02/24/2017 21:10 RS/
[2017-02-24 22:47] LABS: FLD TYPE THORACENTHESIS
[2017-02-24 22:48] LABS: FLD CLARITY SLIGHTLY CLOUDY; FLD COLOR ORANGE; FLD WBC 119 /cmm
[2017-02-24 22:50] LABS: FLD OTHER CELLS 0 %
[2017-02-24 22:51] LABS: FLD RBC 8000 /uL
[2017-02-24 22:53] LABS: FLD MN % (M) 85 %; FLD PMN % (M) 15 %
[2017-02-24] MEDS: IPRATROPIUM (HFA) 12.9 GM INHALER INH SCH (23:34)
[2017-02-24] MEDS: ALBUTEROL 18 GM INHALER INH SCH (23:35)
[2017-02-25] VITALS (102 sets, daily range): BP systolic 54–145; BP diastolic 38–83; PULSE 75–115; RESP 20–24
[2017-02-25] MEDS: PROPOFOL 100 ML IV SCH ×2 (01:00→03:39)
[2017-02-25] MEDS: ACETAMINOPHEN 325 MG TAB PO PRN ×2 (02:10→19:51)
[2017-02-25] MEDS ORDERED: VANCOMYCIN IV PER PHARMACY XX SCH (03:30)
[2017-02-25] MEDS ORDERED: VANCOMYCIN 1.25 GM in DEXTROSE 5% 250 ML IVPB ONE (04:00)
[2017-02-25 04:54] LABS: CALCIUM 8.3 mg/dl (8.4-10.2); CREATININE 0.96 mg/dl (0.44-1.00); MAGNESIUM 2.4 mg/dl (1.7-2.5); POTASSIUM 4.1 mmol/L (3.5-5.1)
[2017-02-25] MEDS: PANTOPRAZOLE 40 MG INJ IV SCH (05:19)
[2017-02-25 05:37] LABS: ABNORMAL IP MESSAGE 1; BASOPHIL # 0.1 10^3/ul (0.0-0.1); BASOPHILS % 0.4 % (0.0-2.0); EOSINOPHILS # 0.1 10^3/ul (0.0-0.5); EOSINOPHILS % 0.8 % (0.0-7.0); HEMATOCRIT 28.4 % (37.0-47.0); LYMPHOCYTES # 4.2 10^3/ul (0.8-2.9); LYMPHOCYTES % 33.7 % (15.0-51.0); MEAN CORPUSCULAR HEMOGLOBIN 28.9 pg (29.0-33.0); MEAN CORPUSCULAR HGB CONC 31.7 g/dl (32.0-37.0); MEAN CORPUSCULAR VOLUME 91.3 fl (82.0-101.0); MONOCYTE # 0.2 10^3/ul (0.3-0.9); MONOCYTES % 1.8 % (0.0-11.0); NEUTROPHIL # 7.8 10^3/ul (1.6-7.5); NEUTROPHILS % 61.8 % (39.0-77.0); NUCLEATED RED BLOOD CELLS% 0.2 /100WBC (0.0-0.0); PLATELET COUNT 58 10^3/UL (140-415); RED BLOOD COUNT 3.11 10^6/ul (4.20-5.40); RED CELL DISTRIBUTION WIDTH 19.5 % (11.5-14.5); WHITE BLOOD COUNT 12.5 10^3/ul (4.8-10.8)
[2017-02-25 05:50] LABS: POSITIVE DIFF @See below
--- NOTE | 2017-02-25 05:54 | PN ---
DATE: 02/18/2017 The events of the last 24 hours have been noted. The patient had a significant drop in her hemoglobin requiring 2 units of packed cells without obvious source of bleeding. Bleeding scan has been ordered. The patient is clinically stable. IMPRESSION: The patient's hematocrit dropped likely secondary to her hemorrhagic component of pancreatitis. PLAN: Continue medical management. No new surgical recommendations. Dictated By: Jose A Hannah MD /billy/chato /Document#: [id number]
[2017-02-25 06:55] LABS: ADD UMIC YES; UR ASCORBIC ACID NEGATIVE (NEGATIVE); UR BACTERIA FEW /HPF (NONE SEEN); UR BILIRUBIN (Dip) 1+ mg/dL (NEGATIVE); UR BLOOD (Dip) 3+ mg/dL (NEGATIVE); UR CLARITY CLOUDY (CLEAR); UR COLOR AMBER (YELLOW); UR GLUCOSE (Dip) 1+ mg/dL (NEGATIVE); UR KETONES (Dip) NEGATIVE (NEGATIVE); UR LEUKOCYTE ESTERASE (Dip) 2+ Leu/ul (NEGATIVE); UR NITRITE (Dip) NEGATIVE (NEGATIVE); UR RBC 78 /HPF (0-5); UR SPECIFIC GRAVITY (Dip) 1.017 (1.003-1.030); UR SQUAMOUS EPITHELIAL CELL FEW /HPF (FEW); UR TOTAL PROTEIN (Dip) 2+ mg/dl (NEGATIVE); UR UROBILINOGEN (Dip) 2+ mg/dL (NEGATIVE)
--- NOTE | 2017-02-25 08:29 | RADRPT ---
PROCEDURE: XR Chest. CLINICAL INDICATION: pna chf TECHNIQUE: PA and Lateral views of the chest were obtained. COMPARISON: Chest x-ray 02/24/2017 FINDINGS: The endotracheal tube terminates approximately 4 cm above the kavon. The right PICC line and nasogastric tube are in stable positions. An inferior vena cava filter is read demonstrated. The cardiac silhouette is moderately enlarged. There are atherosclerotic calcifications of the thoracic aorta. There is increased pulmonary vascular congestion compared to prior study. Hazy opacity in the right mid and lower lung is stable and likely represents a partially layering ri ght pleural effusion. Underlying edema, atelectasis, and / or consolidation cannot be completely ex cluded. Small left pleural effusion and retrocardiac opacity appear unchanged. S-shaped thoracolumbar scoliosis is redemonstrated. Degenerative changes of the visualized spine ar e also noted. IMPRESSION: 1. Interval increase in pulmonary vascular congestion. 2. Stable probable small to moderate right pleural effusion with superimposed edema, atelectasis, a nd / or consolidation not completely excluded. 3. Stable small left pleural effusion and retrocardiac opacity. 4. Moderate cardiomegaly. 5. Thoracic aortic atherosclerotic disease. RPTAT: PP Physician Stefan Date Time Electronically viewed and signed by Physician Stefna on 02/25/2017 08:28 /
[2017-02-25] MEDS: IPRATROPIUM (HFA) 12.9 GM INHALER INH SCH ×3 (08:52→23:14)
[2017-02-25] MEDS: ALBUTEROL 18 GM INHALER INH SCH ×3 (08:52→23:14)
[2017-02-25] MEDS: METOPROLOL 25 MG TAB PO SCH ×2 (09:00→20:35)
[2017-02-25] MEDS: [UNRECOGNIZED DRUG - REMARK] XX SCH (09:00)
[2017-02-25] MEDS: MEROPENEM 1 GM/50ML(PMX) 50 ML IVPB SCH ×2 (09:01→20:48)
[2017-02-25] MEDS: MIDODRINE 5 MG TAB PO SCH ×3 (09:01→20:48)
[2017-02-25] MEDS: BALSAM PERU/CASTOR OIL 60 GM TUBE TOP SCH (09:02)
[2017-02-25] MEDS: COLLAGENASE 30 GM TUBE TOP SCH (09:02)
[2017-02-25] MEDS ORDERED: DEXTROSE 5% WATER 500 ML BAG IV ONE (09:30)
--- NOTE | 2017-02-25 09:51 | PN ---
Date/Time of Note Date/Time of Note DATE: 02/25/17 TIME: 09: Assessment/Plan VTE Prophylaxis VTE Prophylaxis Intervention: SCD's Lines/Catheters IV Catheter Type (from Nrsg): PICC Line Central line still needed: Yes (for TPN and IV access ) Urinary Cath still in place: Yes Reason Cath still needed: other (indicate) (sepsis ) Assessment/Plan Assessment/Plan 86 yo female with: 1. Acute Respiratory failure, in setting of pleural effusions, atelectasis, severe anemia and poor overall clinical status. Patient in ICU on mechanical ventilation due to deteriorating respiratory status and pressors. CXR still with volume overload and pleural effusion even s/p thoracentesis 02/20 with -300 cc and another right thoracentesis today with removal of less than 100 cc, also given yellow sputum and fever overnight, started Vanco along with Meropenem. On mechanical ventilation, patient in the volume overload however even her hemodynamics, decreased UOP and ongoing hypernatremia Fluid bolus challenge, off Lasix. CT chest pending 2. Severe pancreatitis with pseudocyst, currently on TPN and clear liquids. CAT scan of the abdomen and pelvis has been compared to the one done at [facility] approximately 3 weeks ago, cholecystostomy tube has been removed however there is concern as the patient has a new fluid collection in addition of the previous pseudocyst also previous pseudocyst seems to have increased in size and there is concern for possible infection. Still waiting for drainage of 2nd cyst but INR at 1.4 and patient clinically declined further today requiring intubation. Per Surgery note last week, ? bleeding in pseudocyst but patient was not stable to get bleeding scan due to fact she was on BiPAP Continue Meropenem for now and also on Vanco now. 3. Acute on chronic anemia with again drop of hemoglobin to 6.0 this AM s/p transfusion of 2 units of packed red blood cells and 1 unit of FFP. Hb stable x 4 days Bleeding scan was not done due to respiratory distress and needs for continuous BiPAP GI following. No signs of acute bleeding so far however patient does have positive fecal occult blood. Appreciate GI consult, patient and her son declined EGD prior. Appreciate recommendations of Dr Hannah, may still needs CT guided drainage of 2nd pseudocyst by IR, patient currently mostly n.p.o. and INR has been better however patient with respiratory distress not a candidate for IR procedure currently. 4. Hypotension: Based on records patient has been actually put on midodrine 5 mg p.o. tid due to ongoing hypotension even at discharge from [place] at [place], Now the patient intubated, she is on Levophed for blood pressure support while on propofol. Also seems septic with likely HCAP, so Vanco added and Eric as second pressor as needed. Continue Meropenem. 5. Urinary retention, status post acute kidney injury at [facility] , renal function seems to be much better, Elder catheter in place. Repeat UA wnl , repeat Urine cx negative. 6. Hypernatremia, Nutrition: Slowly improving with TPN adjustments TPN to be adjusted per pharmacy to adjust daily based on electrolytes. Repleting electrolytes additionally as needed. Fluid Bolus Appreciate nephrology assistance from Dr. Partida 7. Sinus Tachycardia: Per report from [facility] patient has sinus tachycardia. Resolved as patient in less distress currently after intubation and sedation. 8. Venous thromboembolism with episode of DVT, status post IVC filter 9. Mild coagulopathy: PTT wnl, Vitamin K and FFP as needed for INR 1.4 but to be noted patient with VTE, s/p IVC filter . We will recheck Dopplers lower extremity Prophylaxis: Protonix for GI prophylaxis, SCDs and status post IVC filter for DVT prophylaxis Disposition: ICU now, intubated on mechanical ventilation , attempted repeat thoracentesis right pleural effusion with very minimal output. Pending CT chest today and also pending CT guided drainage of new pseudocyst by IR if possible/stable Full code Subjective 24 Hr Interval Summary Free Text/Dictation Patient with fevers overnight and decreased UOP, fluid challenge this AM Also noted to have yellow sputum, Vanco started, sputum/blood/UA and urine cx pending Patient on mechanical ventilation and pressors Exam/Review of Systems Vital Signs Vitals Vital Signs Date Time Temp Pulse Resp B/P Pulse Ox O2 Delivery O2 Flow Rate FiO2 02/25/17 08:15 76 20 94/59 94 02/25/17 08:05 60 02/25/17 08:00 98.0 Mechanical Ventilator 02/23/17 02:43 4.0 Intake and Output 02/24/17 02/24/17 02/25/17 15:00 23:00 07:00 Intake Total 621.19 ml 673.390 ml 848.026 ml Output Total 250 ml 160 ml 170 ml Balance 371.19 ml 513.390 ml 678.026 ml Exam Constitutional: other (sedated and intubated ) Respiratory: diminished breath sounds (bilaterally ) Cardiovascular: regular rate and rhythm Gastrointestinal: non-tender, soft Musculoskeletal: nl extremities to inspection, other (no edema, clubbing or cyanosis ) Extremities: normal pulses Neurological: lethargic, other (sedated and intubated ) Results Result Diagram: 02/25/17 0300 02/25/17 0300 Results 24 hrs Laboratory Tests Test 02/24/17 09:32 02/24/17 14:00 02/25/17 03:00 02/25/17 03:15 Body Fluid Type THORACENTESIS FLUID Body Fluid Volume 9.0 Body Fluid Color ORANGE Body Fluid Appearance SLIGHTLY CLOUDY Body Fluid WBC 119 Body Fluid RBC (Auto) 8000 Body Fluid Polynuclear WBCs 15 Body Fluid Polynuclear WBCs (%) 15.0 Body Fluid Mononuclear WBCs 85 Body Fluid Mononuclear Cells % Auto 85.0 Body Fluid Other Cells 0 Body Fluid Glucose 70 Body Fluid Total Protein < 2.0 Body Fluid Lactate Dehydrogenase Blood Gas Specimen Source Blood arterial Arterial Blood Date Drawn 02/24/2017 2:00:36 PM Arterial Blood pH (Temp corrected) 7.489 H Arterial Blood pCO2 (Temp correct) 35.8 Arterial Blood pO2 (Temp corrected) 114.8 H Arterial Blood HCO3 26.6 H Arterial Blood Base Excess 3.3 H Arterial Blood Oxygen Saturation 98.1 Shreyas Test ACCEPTAB Arterial Blood Gas Puncture Site Left Radial Arterial Blood Carboxyhemoglobin 0.3 Arterial Blood Methemoglobin 0.6 Blood Gas A-a O2 Differential 562.4 H Oxyhemoglobin Percent 97.2 Total Hemoglobin 10.5 L Blood Gas Temperature 37.0 Blood Gas Respiration Rate 20.0 Blood Gas Actual Respiration Rate 20 Blood Gas Modality VENT - AC FiO2 100.0 Blood Gas Tidal Volume 500.0 Blood Gas Low PEEP Setting 5.0 Blood Gas Notified Whom JLD Blood Gas Notified Time 02/24/2017 2:08:14 PM White Blood Count 12.5 H Red Blood Count 3.11 L Hemoglobin 9.0 L Hematocrit 28.4 L Mean Corpuscular Volume 91.3 Mean Corpuscular Hemoglobin 28.9 L Mean Corpuscular Hemoglobin Concent 31.7 L Red Cell Distribution Width 19.5 H Platelet Count 58 #L Mean Platelet Volume Neutrophils % 61.8 Lymphocytes % 33.7 Monocytes % 1.8 Eosinophils % 0.8 Basophils % 0.4 Nucleated Red Blood Cells % 0.2 H Neutrophils # 7.8 H Lymphocytes # 4.2 H Monocytes # 0.2 L Eosinophils # 0.1 Basophils # 0.1 Nucleated Red Blood Cells # 0.0 Sodium Level 150 H Potassium Level 4.1 Chloride Level 112 H Carbon Dioxide Level 28 Anion Gap 14 Blood Urea Nitrogen 34 H Creatinine 0.96 Glucose Level 139 Calcium Level 8.3 L Phosphorus Level 3.0 Magnesium Level 2.4 Urine Color INES Urine Clarity CLOUDY A Urine pH 5.0 Urine Specific [place] 1.017 Urine Ketones NEGATIVE Urine Nitrite NEGATIVE Urine Bilirubin 1+ H Urine Urobilinogen 2+ H Urine Leukocyte Esterase 2+ H Urine Microscopic RBC 78 H Urine Microscopic WBC 66 H Urine Squamous Epithelial Cells FEW Urine Bacteria FEW A Urine Hemoglobin 3+ H Urine Glucose 1+ H Urine Total Protein 2+ H Medications Medications Current Medications Metoprolol Tartrate (Lopressor) 25 mg BID PO Last administered on 02/20/17 09: 53; Admin Dose 25 MG; Start 02/11/17 at 21:00 Ondansetron HCl (Zofran Inj) 4 mg Q6H PRN IV NAUSEA AND/OR VOMITING Last administered on 02/13/17 00:36; Admin Dose 4 MG; Start 02/11/17 at 10:00 Acetaminophen (Tylenol Tab) 650 mg Q6H PRN PO PAIN LEVEL 1-3 OR FEVER Last administered on 02/25/17 02:10; Admin Dose 650 MG; Start 02/11/17 at 10:00 Morphine Sulfate (morphine) 2 mg Q4H PRN IV PAIN LEVEL 7-10 Last administered on 02/24/17 01:00; Admin Dose 2 MG; Start 02/11/17 at 10:00 Docusate Sodium (Colace) 100 mg Q12H PRN PO CONSTIPATION; Start 02/11/17 at 10: 00 Bisacodyl 10 mg 10 mg DAILY PRN [place] CONSTIPATION; Start 02/11/17 at 10:00 Meropenem/Sodium Chloride (Merrem 1 Gm/50 ml (Pmx)) 50 ml @ 200 mls/hr Q12 IVPB Last administered on 02/25/17 09:01; Admin Dose 200 MLS/HR; Start at 18:00 Miscellaneous Information (Pending Santyl Order For Wound Care) This patient prado... PRN PRN XX WOUND CARE; Start 02/11/17 at 19:00 Collagenase (Santyl) 1 applic DAILY TOP Last administered on 02/25/17 09:02; Admin Dose 1 APPLIC; Start 02/12/17 at 13:30 Diphenhydramine HCl 25 mg 25 mg Q6H PRN IV ITCHING Last administered on 03:22; Admin Dose 25 MG; Start 02/12/17 at 14:00 Total Parenteral Nutrition (Tpn) 1,000 ml @ 40 mls/hr Q24H IV Last administered on 02/24/17 17:24; Admin Dose 40 MLS/HR; Start 02/12/17 at 18:00 Alprazolam 0.25 mg 0.25 mg Q12H PRN PO ANXIETY Last administered on 02/23/17 02:09; Admin Dose 0.25 MG; Start 02/19/17 at 14:00 Norepinephrine 16 mg/Dextrose 500 ml @ 1.87 mls/hr TITRATE IV Last administered on 02/25/17 09:14; Admin Dose 37.5 MLS/HR; Start 02/21/17 at 17:30 Sodium Chloride 250 ml @ 250 mls/hr Q1H PRN IV abp below 90 Last administered on 02/21/17 20:08; Admin Dose 250 MLS/HR; Start 02/21/17 at 17:30 Fluconazole (Diflucan 200 Mg/ NS (Pmx)) 100 ml @ 100 mls/hr Q24H IVPB Last administered on 02/24/17 10:23; Admin Dose 100 MLS/HR; Start 02/22/17 at 11:00 Pantoprazole (Protonix Iv) 40 mg DAILY@06 IV Last administered on 02/25/17 05: 19; Admin Dose 40 MG; Start 02/23/17 at 06:00 Midodrine (Proamatine) 5 mg TID PO Last administered on 02/25/17 09:01; Admin Dose 5 MG; Start 02/23/17 at 13:30 Lorazepam (Ativan) 0.5 mg Q8H PRN IV AGITATION/ANXIETY; Start 02/23/17 at 13:30 Miscellaneous Information DAILY XX ; Start 02/25/17 at 09:00 Propofol 100 ml @ 1.86 mls/hr Q12H IV Last administered on 02/25/17t 03:39; Admin Dose 5.58 MLS/HR; Start 02/24/17 at 13:00 Vancomycin HCl/ Dextrose/Water (Vancocin/D5W) 150 ml @ 100 mls/hr Q24H IVPB ; Start 02/26/17 at 04:00 Dextrose 500 ml 500 ml ONCE ONCE IV ; Start 02/25/17 at 09:30; Stop 02/25/17 at 09:31 Phenylephrine HCl/ Dextrose (Eric-Syneph/D5W) 500 ml @ 75 mls/hr TITRATE IV ; Start 02/25/17 at 10:30 Procedures Procedures PROCEDURE: XR Chest. CLINICAL INDICATION: pna chf TECHNIQUE: PA and Lateral views of the chest were obtained. COMPARISON: Chest x-ray 02/24/2017 FINDINGS: The endotracheal tube terminates approximately 4 cm above the kavon. The right PICC line and nasogastric tube are in stable positions. An inferior vena cava filter is read demonstrated. The cardiac silhouette is moderately enlarged. There are atherosclerotic calcifications of the thoracic aorta. There is increased pulmonary vascular congestion compared to prior study. Hazy opacity in the right mid and lower lung is stable and likely represents a partially layering right pleural effusion. Underlying edema, atelectasis, and / or consolidation cannot be completely excluded. Small left pleural effusion and retrocardiac opacity appear unchanged. S-shaped thoracolumbar scoliosis is redemonstrated. Degenerative changes of the visualized spine are also noted. IMPRESSION: 1. Interval increase in pulmonary vascular congestion. 2. Stable probable small to moderate right pleural effusion with superimposed edema, atelectasis, and / or consolidation not completely excluded. 3. Stable small left pleural effusion and retrocardiac opacity. 4. Moderate cardiomegaly. 5. Thoracic aortic atherosclerotic disease. RPTAT: PP Physician Stefan Date Time Electronically viewed and signed by Ryanny Con, Physician on 02/25/2017 08: 28 BONIFACIO COWART Feb 25, 2017 09:51
[2017-02-25] MEDS ORDERED: FENTAnyl (DRIP) 1000 mcg/100mL 100 ML IV SCH (10:00)
[2017-02-25] MEDS: MIDAZOLAM (DRIP) 50 mg/50 mL 50 ML IV SCH ×2 (10:43→22:54)
--- NOTE | 2017-02-25 11:05 | CONS ---
Date/Time of Note Date/Time of Note DATE: 02/25/17 TIME: 11:04 Consult Date/Type/Reason Admit Date/Time Feb 11, 2017 at 05:28 Initial Consult Date 02/21/17 Type of Consultation: Pulmonary Ordering Provider: BONIFACIO COWART Subjective Patient intubated yesterday for respiratory failure. Now on vasopressors. Remains somnolent. Objective Vital Signs Date Time Temp Pulse Resp B/P Pulse Ox O2 Delivery O2 Flow Rate FiO2 02/25/17 08:15 76 20 94/59 94 02/25/17 08:05 60 02/25/17 08:00 98.0 Mechanical Ventilator 02/23/17 02:43 4.0 Intake and Output 02/24/17 02/24/17 02/25/17 15:00 23:00 07:00 Intake Total 621.19 ml 673.390 ml 848.026 ml Output Total 250 ml 160 ml 170 ml Balance 371.19 ml 513.390 ml 678.026 ml Exam GENERAL: Elderly lady on mechanical ventilation orally intubated. VITAL SIGNS: see below. HEENT: Pupils equal, round, and reactive to light. CARDIAC: S1, S2, 1/6 systolic ejection murmur CHEST: Diminished air entry bilaterally. ABDOMEN: Mildly distended. Bowel sounds present no guarding or rebound EXTREMITIES: No cyanosis, clubbing edema +2 NEUROLOGIC: Generalized weakness Results/Medications Result Diagram: 02/25/17 0300 02/25/17 0300 Results 24 hrs Laboratory Tests Test 02/24/17 14:00 02/25/17 03:00 02/25/17 03:15 Blood Gas Specimen Source Blood arterial Arterial Blood Date Drawn 02/24/2017 2:00:36 PM Arterial Blood pH (Temp corrected) 7.489 H Arterial Blood pCO2 (Temp correct) 35.8 Arterial Blood pO2 (Temp corrected) 114.8 H Arterial Blood HCO3 26.6 H Arterial Blood Base Excess 3.3 H Arterial Blood Oxygen Saturation 98.1 Shreyas Test ACCEPTAB Arterial Blood Gas Puncture Site Left Radial Arterial Blood Carboxyhemoglobin 0.3 Arterial Blood Methemoglobin 0.6 Blood Gas A-a O2 Differential 562.4 H Oxyhemoglobin Percent 97.2 Total Hemoglobin 10.5 L Blood Gas Temperature 37.0 Blood Gas Respiration Rate 20.0 Blood Gas Actual Respiration Rate 20 Blood Gas Modality VENT - AC FiO2 100.0 Blood Gas Tidal Volume 500.0 Blood Gas Low PEEP Setting 5.0 Blood Gas Notified Whom JLD Blood Gas Notified Time 02/24/2017 2:08:14 PM White Blood Count 12.5 H Red Blood Count 3.11 L Hemoglobin 9.0 L Hematocrit 28.4 L Mean Corpuscular Volume 91.3 Mean Corpuscular Hemoglobin 28.9 L Mean Corpuscular Hemoglobin Concent 31.7 L Red Cell Distribution Width 19.5 H Platelet Count 58 #L Mean Platelet Volume Neutrophils % 61.8 Lymphocytes % 33.7 Monocytes % 1.8 Eosinophils % 0.8 Basophils % 0.4 Nucleated Red Blood Cells % 0.2 H Neutrophils # 7.8 H Lymphocytes # 4.2 H Monocytes # 0.2 L Eosinophils # 0.1 Basophils # 0.1 Nucleated Red Blood Cells # 0.0 Sodium Level 150 H Potassium Level 4.1 Chloride Level 112 H Carbon Dioxide Level 28 Anion Gap 14 Blood Urea Nitrogen 34 H Creatinine 0.96 Glucose Level 139 Calcium Level 8.3 L Phosphorus Level 3.0 Magnesium Level 2.4 Urine Color INES Urine Clarity CLOUDY A Urine pH 5.0 Urine Specific [place] 1.017 Urine Ketones NEGATIVE Urine Nitrite NEGATIVE Urine Bilirubin 1+ H Urine Urobilinogen 2+ H Urine Leukocyte Esterase 2+ H Urine Microscopic RBC 78 H Urine Microscopic WBC 66 H Urine Squamous Epithelial Cells FEW Urine Bacteria FEW A Urine Hemoglobin 3+ H Urine Glucose 1+ H Urine Total Protein 2+ H Medications Current Medications Metoprolol Tartrate (Lopressor) 25 mg BID PO Last administered on 02/20/17 09: 53; Admin Dose 25 MG; Start 02/11/17 at 21:00 Ondansetron HCl (Zofran Inj) 4 mg Q6H PRN IV NAUSEA AND/OR VOMITING Last administered on 02/13/17 00:36; Admin Dose 4 MG; Start 02/11/17 at 10:00 Acetaminophen (Tylenol Tab) 650 mg Q6H PRN PO PAIN LEVEL 1-3 OR FEVER Last administered on 02/25/17 02:10; Admin Dose 650 MG; Start 02/11/17 at 10:00 Morphine Sulfate (morphine) 2 mg Q4H PRN IV PAIN LEVEL 7-10 Last administered on 02/24/17 01:00; Admin Dose 2 MG; Start 02/11/17 at 10:00 Docusate Sodium (Colace) 100 mg Q12H PRN PO CONSTIPATION; Start 02/11/17 at 10: 00 Bisacodyl 10 mg 10 mg DAILY PRN [place] CONSTIPATION; Start 02/11/17 at 10:00 Meropenem/Sodium Chloride (Merrem 1 Gm/50 ml (Pmx)) 50 ml @ 200 mls/hr Q12 IVPB Last administered on 02/25/17 09:01; Admin Dose 200 MLS/HR; Start at 18:00 Miscellaneous Information (Pending Santyl Order For Wound Care) This patient prado... PRN PRN XX WOUND CARE; Start 02/11/17 at 19:00 Collagenase (Santyl) 1 applic DAILY TOP Last administered on 02/25/17 09:02; Admin Dose 1 APPLIC; Start 02/12/17 at 13:30 Diphenhydramine HCl 25 mg 25 mg Q6H PRN IV ITCHING Last administered on 03:22; Admin Dose 25 MG; Start 02/12/17 at 14:00 Total Parenteral Nutrition (Tpn) 1,000 ml @ 40 mls/hr Q24H IV Last administered on 02/24/17 17:24; Admin Dose 40 MLS/HR; Start 02/12/17 at 18:00 Alprazolam 0.25 mg 0.25 mg Q12H PRN PO ANXIETY Last administered on 02/23/17 02:09; Admin Dose 0.25 MG; Start 02/19/17 at 14:00 Norepinephrine 16 mg/Dextrose 500 ml @ 1.87 mls/hr TITRATE IV Last administered on 02/25/17 09:14; Admin Dose 37.5 MLS/HR; Start 02/21/17 at 17:30 Sodium Chloride 250 ml @ 250 mls/hr Q1H PRN IV abp below 90 Last administered on 02/21/17 20:08; Admin Dose 250 MLS/HR; Start 02/21/17 at 17:30 Fluconazole (Diflucan 200 Mg/ NS (Pmx)) 100 ml @ 100 mls/hr Q24H IVPB Last administered on 02/24/17 10:23; Admin Dose 100 MLS/HR; Start 02/22/17 at 11:00 Pantoprazole (Protonix Iv) 40 mg DAILY@06 IV Last administered on 02/25/17 05: 19; Admin Dose 40 MG; Start 02/23/17 at 06:00 Midodrine (Proamatine) 5 mg TID PO Last administered on 02/25/17 09:01; Admin Dose 5 MG; Start 02/23/17 at 13:30 Lorazepam (Ativan) 0.5 mg Q8H PRN IV AGITATION/ANXIETY; Start 02/23/17 at 13:30 Miscellaneous Information DAILY XX ; Start 02/25/17 at 09:00 Vancomycin HCl 750 mg/Dextrose/ Water 150 ml @ 100 mls/hr Q24H IVPB ; Start at 04:00 Phenylephrine HCl 40 mg/Dextrose 500 ml @ 75 mls/hr TITRATE IV ; Start at 10:30 Midazolam HCl 50 ml @ 1 mls/hr TITRATE IV Last administered on 02/25/17 10:43 ; Admin Dose 1 MLS/HR; Start 02/25/17 at 10:00 Fentanyl (Sublimaze) 100 ml @ 2.5 mls/hr TITRATE IV Last administered on 10:43; Admin Dose 2.5 MLS/HR; Start 02/25/17 at 10:00 Assessment/Plan Chief Complaint/Hosp Course Assessment 1. Recent severe pancreatitis completed by pseudocyst pending drainage. 2. Anemia of unclear etiology currently not stable for EGD given severe hypoxemia, she would require intubation and mechanical ventilation 3. Hypoxemic respiratory failure combination of volume overload and right pleural effusion. Now intubated on mechanical ventilation 4. Septic shock multifactorial 5. Nutrition continues TPN. 6. Tachycardia likely secondary to ongoing abdominal condition. 7. History of thromboembolic disease status post IVC filter Plan 1. Continue mechanical ventilation 2. Discontinue diuretics continue vasopressor support 3. GI and surgery recommendations 4. Continue DVT and GI prophylaxis Discussed with primary care team critical care time 40 minutes. Problems: SLAVA MCBRIDE MD, [facility] Feb 25, 2017 11:05
[2017-02-25] MEDS: FLUCONAZOLE 200 MG/NS (PMX) 100 ML IVPB SCH (11:43)
--- NOTE | 2017-02-25 13:54 | PN ---
Date/Time of Note Date/Time of Note DATE: 02/25/17 TIME: 13:51 Assessment/Plan VTE Prophylaxis VTE Prophylaxis Intervention: SCD's Lines/Catheters IV [facility] (from [facility]): PICC Line Central line still needed: Yes Urinary Cath still in place: Yes Reason Cath still needed: urinary retention Assessment/Plan Assessment/Plan Acute respiratory failure management c/o pulmonary * Anemia hemoglobin * Refused EGD * Pancreatitis with Pancreatic pseudocyst/awaiting drainage * Coagulopathy * H/O tube cholecystostomy * H/O ERCP removal of stone with biliary stent * Plan * Continue present regimen * Surgical management of pseudocyst * Endoscopic attempts at cystogastrostomy would require tertiary facility * IR drainage once coagulation permits * monitor hemoglobin and hematocrit daily and transfuse per protocol * further orders will depend on clinical course * case discussed with DR Hill Subjective 24 Hr Interval Summary Free Text/Dictation * course reviewed with RN * patient seen and examined * Still orally intubated on pressors * latest hemoglobin 9 * no evidence of bleeding Exam/Review of Systems Vital Signs Vitals Vital Signs Date Time Temp Pulse Resp B/P Pulse Ox O2 Delivery O2 Flow Rate FiO2 02/25/17 08:15 76 20 94/59 94 02/25/17 08:05 60 02/25/17 08:00 98.0 Mechanical Ventilator 02/23/17 02:43 4.0 Intake and Output 02/24/17 02/24/17 02/25/17 15:00 23:00 07:00 Intake Total 621.19 ml 673.390 ml 848.026 ml Output Total 250 ml 160 ml 170 ml Balance 371.19 ml 513.390 ml 678.026 ml Exam Constitutional: frail ENMT: intubated Neck: non-tender, supple Respiratory: crackles/rales, diminished breath sounds Cardiovascular: nl pulses, regular rate and rhythm Gastrointestinal: bowel sounds, distended, soft, No rebound or guarding Musculoskeletal: muscle weakness Extremities: normal pulses, pitting pedal edema Neurological: other (sedated) Skin: nl turgor, rash or lesions Results Result Diagram: 02/25/17 0300 02/25/17 0300 Results 24 hrs Laboratory Tests Test 02/24/17 14:00 02/25/17 03:00 02/25/17 03:15 Blood Gas Specimen Source Blood arterial Arterial Blood Date Drawn 02/24/2017 2:00:36 PM Arterial Blood pH (Temp corrected) 7.489 H Arterial Blood pCO2 (Temp correct) 35.8 Arterial Blood pO2 (Temp corrected) 114.8 H Arterial Blood HCO3 26.6 H Arterial Blood Base Excess 3.3 H Arterial Blood Oxygen Saturation 98.1 Shreyas Test ACCEPTAB Arterial Blood Gas Puncture Site Left Radial Arterial Blood Carboxyhemoglobin 0.3 Arterial Blood Methemoglobin 0.6 Blood Gas A-a O2 Differential 562.4 H Oxyhemoglobin Percent 97.2 Total Hemoglobin 10.5 L Blood Gas Temperature 37.0 Blood Gas Respiration Rate 20.0 Blood Gas Actual Respiration Rate 20 Blood Gas Modality VENT - AC FiO2 100.0 Blood Gas Tidal Volume 500.0 Blood Gas Low PEEP Setting 5.0 Blood Gas Notified Whom JLD Blood Gas Notified Time 02/24/2017 2:08:14 PM White Blood Count 12.5 H Red Blood Count 3.11 L Hemoglobin 9.0 L Hematocrit 28.4 L Mean Corpuscular Volume 91.3 Mean Corpuscular Hemoglobin 28.9 L Mean Corpuscular Hemoglobin Concent 31.7 L Red Cell Distribution Width 19.5 H Platelet Count 58 #L Mean Platelet Volume Neutrophils % 61.8 Lymphocytes % 33.7 Monocytes % 1.8 Eosinophils % 0.8 Basophils % 0.4 Nucleated Red Blood Cells % 0.2 H Neutrophils # 7.8 H Lymphocytes # 4.2 H Monocytes # 0.2 L Eosinophils # 0.1 Basophils # 0.1 Nucleated Red Blood Cells # 0.0 Sodium Level 150 H Potassium Level 4.1 Chloride Level 112 H Carbon Dioxide Level 28 Anion Gap 14 Blood Urea Nitrogen 34 H Creatinine 0.96 Glucose Level 139 Calcium Level 8.3 L Phosphorus Level 3.0 Magnesium Level 2.4 Urine Color INES Urine Clarity CLOUDY A Urine pH 5.0 Urine Specific [place] 1.017 Urine Ketones NEGATIVE Urine Nitrite NEGATIVE Urine Bilirubin 1+ H Urine Urobilinogen 2+ H Urine Leukocyte Esterase 2+ H Urine Microscopic RBC 78 H Urine Microscopic WBC 66 H Urine Squamous Epithelial Cells FEW Urine Bacteria FEW A Urine Hemoglobin 3+ H Urine Glucose 1+ H Urine Total Protein 2+ H Medications Medications Current Medications Metoprolol Tartrate (Lopressor) 25 mg BID PO Last administered on 02/20/17t 09: 53; Admin Dose 25 MG; Start 02/11/17 at 21:00 Ondansetron HCl (Zofran Inj) 4 mg Q6H PRN IV NAUSEA AND/OR VOMITING Last administered on 02/13/17 00:36; Admin Dose 4 MG; Start 02/11/17 at 10:00 Acetaminophen (Tylenol Tab) 650 mg Q6H PRN PO PAIN LEVEL 1-3 OR FEVER Last administered on 02/25/17 02:10; Admin Dose 650 MG; Start 02/11/17 at 10:00 Morphine Sulfate (morphine) 2 mg Q4H PRN IV PAIN LEVEL 7-10 Last administered on 02/24/17 01:00; Admin Dose 2 MG; Start 02/11/17 at 10:00 Docusate Sodium (Colace) 100 mg Q12H PRN PO CONSTIPATION; Start 02/11/17 at 10: 00 Bisacodyl 10 mg 10 mg DAILY PRN ND CONSTIPATION; Start 02/11/17 at 10:00 Meropenem/Sodium Chloride (Merrem 1 Gm/50 ml (Pmx)) 50 ml @ 200 mls/hr Q12 IVPB Last administered on 02/25/17 09:01; Admin Dose 200 MLS/HR; Start at 18:00 Miscellaneous Information (Pending Santyl Order For Wound Care) This patient prado... PRN PRN XX WOUND CARE; Start 02/11/17 at 19:00 Collagenase (Santyl) 1 applic DAILY TOP Last administered on 02/25/17 09:02; Admin Dose 1 APPLIC; Start 02/12/17 at 13:30 Diphenhydramine HCl 25 mg 25 mg Q6H PRN IV ITCHING Last administered on 03:22; Admin Dose 25 MG; Start 02/12/17 at 14:00 Total Parenteral Nutrition (Tpn) 1,000 ml @ 40 mls/hr Q24H IV Last administered on 02/24/17 17:24; Admin Dose 40 MLS/HR; Start 02/12/17 at 18:00 Alprazolam 0.25 mg 0.25 mg Q12H PRN PO ANXIETY Last administered on 02/23/17 02:09; Admin Dose 0.25 MG; Start 02/19/17 at 14:00 Norepinephrine 16 mg/Dextrose 500 ml @ 1.87 mls/hr TITRATE IV Last administered on 02/25/17 09:14; Admin Dose 37.5 MLS/HR; Start 02/21/17 at 17:30 Sodium Chloride 250 ml @ 250 mls/hr Q1H PRN IV abp below 90 Last administered on 02/21/17 20:08; Admin Dose 250 MLS/HR; Start 02/21/17 at 17:30 Fluconazole (Diflucan 200 Mg/ NS (Pmx)) 100 ml @ 100 mls/hr Q24H IVPB Last administered on 02/25/17 11:43; Admin Dose 100 MLS/HR; Start 02/22/17 at 11:00 Pantoprazole (Protonix Iv) 40 mg DAILY@06 IV Last administered on 02/25/17 05: 19; Admin Dose 40 MG; Start 02/23/17 at 06:00 Midodrine (Proamatine) 5 mg TID PO Last administered on 02/25/17 12:16; Admin Dose 5 MG; Start 02/23/17 at 13:30 Lorazepam (Ativan) 0.5 mg Q8H PRN IV AGITATION/ANXIETY; Start 02/23/17 at 13:30 Miscellaneous Information DAILY XX ; Start 02/25/17 at 09:00 Vancomycin HCl 750 mg/Dextrose/ Water 150 ml @ 100 mls/hr Q24H IVPB ; Start at 04:00 Phenylephrine HCl 40 mg/Dextrose 500 ml @ 75 mls/hr TITRATE IV ; Start at 10:30 Midazolam HCl 50 ml @ 1 mls/hr TITRATE IV Last administered on 02/25/17 10:43 ; Admin Dose 1 MLS/HR; Start 02/25/17 at 10:00 Fentanyl (Sublimaze) 100 ml @ 2.5 mls/hr TITRATE IV Last administered on 10:43; Admin Dose 2.5 MLS/HR; Start 02/25/17 at 10:00 LUZMARIA SPAIN NP Feb 25, 2017 13:54
[2017-02-25 15:15] LABS: ALBUMIN 1.5 g/dl (3.3-4.9); ALBUMIN/GLOBULIN RATIO 0.45; BILIRUBIN,DIRECT 2.3 mg/dl (0.00-0.20); BILIRUBIN,INDIRECT 0.6 mg/dl (0-1.1); BILIRUBIN,TOTAL 2.9 mg/dl (0.2-1.3); CALCIUM 7.6 mg/dl (8.4-10.2); CREATININE 0.91 mg/dl (0.44-1.00); POTASSIUM 3.5 mmol/L (3.5-5.1); TOTAL PROTEIN 4.8 g/dl (6.1-8.1)
[2017-02-25] MEDS ORDERED: PROPOFOL 100 ML ONE (18:02)
[2017-02-25] MEDS ORDERED: LIDOCAINE 1% (MPF) 5 ML VIAL ONE ×4 (18:02)
[2017-02-25] MEDS: TPN 1,000 ML IV SCH (18:53)
[2017-02-25] MEDS: PHENYLephrine 40 MG in DEXTROSE 5% 496 ML IV SCH (19:54)
[2017-02-26] VITALS (98 sets, daily range): BP systolic 61–133; BP diastolic 37–84; PULSE 88–120; RESP 13–24
[2017-02-26] MEDS ORDERED: VANCOMYCIN 750 MG in DEXTROSE 5% 150 ML IVPB SCH (04:00)
[2017-02-26] MEDS: PANTOPRAZOLE 40 MG INJ IV SCH (05:00)
[2017-02-26 05:04] LABS: ABNORMAL IP MESSAGE 1; BASOPHIL # 0.1 10^3/ul (0.0-0.1); BASOPHILS % 0.4 % (0.0-2.0); EOSINOPHILS # 0.1 10^3/ul (0.0-0.5); EOSINOPHILS % 0.7 % (0.0-7.0); LYMPHOCYTES # 5.3 10^3/ul (0.8-2.9); LYMPHOCYTES % 39.8 % (15.0-51.0); MONOCYTE # 0.3 10^3/ul (0.3-0.9); MONOCYTES % 1.9 % (0.0-11.0); NEUTROPHIL # 7.5 10^3/ul (1.6-7.5); NEUTROPHILS % 56.3 % (39.0-77.0); NUCLEATED RED BLOOD CELLS% 0.1 /100WBC (0.0-0.0); PLATELET COUNT 49 10^3/UL (140-415); RED CELL DISTRIBUTION WIDTH 27.3 % (11.5-14.5); WHITE BLOOD COUNT 13.4 10^3/ul (4.8-10.8)
[2017-02-26 05:16] LABS: INR 1.5; PROTIME 18.2 Sec (12.2-14.2); PT RATIO 1.4
[2017-02-26 05:18] LABS: PARTIAL THROMBOPLASTIN TIME 58.7 Sec (25.0-35.0)
[2017-02-26 06:02] LABS: ALBUMIN 1.6 g/dl (3.3-4.9); ALBUMIN/GLOBULIN RATIO 0.42; BILIRUBIN,DIRECT 2.5 mg/dl (0.00-0.20); BILIRUBIN,INDIRECT 0.7 mg/dl (0-1.1); BILIRUBIN,TOTAL 3.2 mg/dl (0.2-1.3); CALCIUM 8.3 mg/dl (8.4-10.2); CREATININE 1.3 mg/dl (0.44-1.00); POTASSIUM 4.7 mmol/L (3.5-5.1); TOTAL PROTEIN 5.4 g/dl (6.1-8.1)
[2017-02-26 06:04] LABS: MAGNESIUM 2.2 mg/dl (1.7-2.5); PHOSPHORUS 3.2 mg/dl (2.5-4.9)
[2017-02-26 06:16] LABS: POSITIVE DIFF @See below
[2017-02-26 06:38] LABS: HEMOGLOBIN 9.3 g/dl (12.0-16.0)
[2017-02-26 06:39] LABS: HEMATOCRIT 28.7 % (37.0-47.0); MEAN CORPUSCULAR HEMOGLOBIN 30.7 pg (29.0-33.0); MEAN CORPUSCULAR VOLUME 94.7 fl (82.0-101.0)
[2017-02-26 06:40] LABS: MEAN CORPUSCULAR HGB CONC 32.4 g/dl (32.0-37.0)
[2017-02-26] MEDS: IPRATROPIUM (HFA) 12.9 GM INHALER INH SCH ×2 (07:10→16:55)
[2017-02-26] MEDS: ALBUTEROL 18 GM INHALER INH SCH ×2 (07:10→16:19)
[2017-02-26 07:19] LABS: AADO2 Arterial 331.4 mmHg (7.0-24.0); Allen Test ACCEPTAB; Arterial COHb 0.3 % (0.0-3.0); Arterial Fraction of Oxyhgb 89.2 % (93.0-99.0); Arterial HCO3 21.9 mmol/L (22.0-26.0); Arterial MetHb 0.4 % (0.0-1.5); Arterial Total Hemglobin 10.5 g/dl (12.0-18.0); MODE VENT - AC
[2017-02-26] MEDS: MIDODRINE 5 MG TAB PO SCH ×3 (08:32→21:26)
[2017-02-26] MEDS: BALSAM PERU/CASTOR OIL 60 GM TUBE TOP SCH (08:33)
[2017-02-26] MEDS: [UNRECOGNIZED DRUG - REMARK] XX SCH (08:33)
--- NOTE | 2017-02-26 08:37 | RADRPT ---
PROCEDURE: XR Chest. CLINICAL INDICATION: pna chf TECHNIQUE: PA and Lateral views of the chest were obtained. COMPARISON: Chest x-ray 02/25/2017 FINDINGS: The endotracheal tube is stable in position, terminating approximate or centimeters above the kavon . The nasogastric tube and right PICC line are stable in positions. Inferior vena cava filter is again noted. The cardiac silhouette is mildly enlarged. There are atherosclerotic calcifications of the thoracic aorta. Pulmonary vascular congestion persists, not significantly changed. Hazy opacity in the right mid and lower lung appears unchanged and may represent a partially layerin g right pleural effusion, edema, atelectasis, and / or consolidation. Left retrocardiac opacity is unchanged. S-shaped thoracolumbar scoliosis is redemonstrated. Degenerative changes of the spine are also note d. IMPRESSION: 1. Stable positions of the endotracheal tube, nasogastric tube, right PICC line, and inferior vena c so filter. 2. No significant interval change in the hazy opacity in the right mid and lower lung which may repr esent a layering small to moderate right pleural effusion. Superimposed edema, atelectasis, and / o r consolidation cannot be excluded. 3. Stable retrocardiac opacity. 4. Moderate cardiomegaly. 5. Thoracic aortic atherosclerotic disease. RPTAT: PP Physician Stefan Date Time Electronically viewed and signed by Physician Stefan on 02/26/2017 08:36 /
[2017-02-26] MEDS: METOPROLOL 25 MG TAB PO SCH ×2 (08:38→21:00)
--- NOTE | 2017-02-26 10:15 | CONS ---
Date/Time of Note Date/Time of Note DATE: 02/26/17 TIME: 10:14 Consult Date/Type/Reason Admit Date/Time Feb 11, 2017 at 05:28 Initial Consult Date 02/21/17 Type of Consultation: Pulmonary Ordering Provider: BONIFACIO COWART Subjective Intubated on mechanical ventilation to vasopressors. Somnolent. Objective Vital Signs Date Time Temp Pulse Resp B/P Pulse Ox O2 Delivery O2 Flow Rate FiO2 02/26/17 08:00 98.1 99 19 94/54 94 Mechanical Ventilator 02/26/17 08:00 60 02/23/17 02:43 4.0 Intake and Output 02/25/17 02/25/17 02/26/17 15:00 23:00 07:00 Intake Total 1493.836 ml 856.98 ml 924.25 ml Output Total 110 ml 90 ml 90 ml Balance 1383.836 ml 766.98 ml 834.25 ml Exam GENERAL: Elderly lady on mechanical ventilation orally intubated. VITAL SIGNS: see below. HEENT: Pupils equal, round, and reactive to light. CARDIAC: S1, S2, 1/6 systolic ejection murmur CHEST: Diminished air entry bilaterally. ABDOMEN: Mildly distended. Bowel sounds present no guarding or rebound EXTREMITIES: No cyanosis, clubbing edema +2 NEUROLOGIC: Generalized weakness Results/Medications Result Diagram: 02/26/17 0350 02/26/17 0350 Results 24 hrs Laboratory Tests Test 02/25/17 14:40 02/25/17 15:25 02/26/17 03:50 02/26/17 07:00 Sodium Level 134 #L 140 Potassium Level 3.5 4.7 Chloride Level 99 # 105 Carbon Dioxide Level 25 25 Anion Gap 14 15 Blood Urea Nitrogen 35 H 43 H Creatinine 0.91 1.30 H Glucose Level 405 #*H 94 # Calcium Level 7.6 L 8.3 L Magnesium Level 2.0 2.2 Total Bilirubin 2.9 H 3.2 H Direct Bilirubin 2.30 H 2.50 H Indirect Bilirubin 0.6 0.7 Aspartate Amino Transf (AST/SGOT) 79 H 67 H Alanine Aminotransferase (ALT/SGPT) 52 45 Alkaline Phosphatase 300 H 304 H Total Protein 4.8 L 5.4 L Albumin 1.5 L 1.6 L Globulin 3.30 H 3.80 H Albumin/Globulin Ratio 0.45 0.42 Bedside Glucose 100 White Blood Count 13.4 H Red Blood Count 1.30 #L Hemoglobin 9.3 L Hematocrit 28.7 L Mean Corpuscular Volume 94.7 Mean Corpuscular Hemoglobin 30.7 Mean Corpuscular Hemoglobin Concent 32.4 Red Cell Distribution Width 27.3 #H Platelet Count 49 L Mean Platelet Volume Neutrophils % 56.3 Lymphocytes % 39.8 Monocytes % 1.9 Eosinophils % 0.7 Basophils % 0.4 Nucleated Red Blood Cells % 0.1 H Neutrophils # 7.5 Lymphocytes # 5.3 H Monocytes # 0.3 Eosinophils # 0.1 Basophils # 0.1 Nucleated Red Blood Cells # 0.0 Prothrombin Time 18.2 H Prothrombin Time Ratio 1.4 INR International Normalized Ratio 1.50 Activated Partial Thromboplast Time 58.7 H Lactic Acid Level 4.2 *H Phosphorus Level 3.2 Blood Gas Specimen Source Blood arterial Arterial Blood Date Drawn 02/26/2017 7:00:05 AM Arterial Blood pH (Temp corrected) 7.426 Arterial Blood pCO2 (Temp correct) 34.0 L Arterial Blood pO2 (Temp corrected) 59.0 L Arterial Blood HCO3 21.9 L Arterial Blood Base Excess -2.0 Arterial Blood Oxygen Saturation 89.8 L Shreyas Test ACCEPTAB Arterial Blood Gas Puncture Site Right Radial Arterial Blood Carboxyhemoglobin 0.3 Arterial Blood Methemoglobin 0.4 Blood Gas A-a O2 Differential 331.4 H Oxyhemoglobin Percent 89.2 L Total Hemoglobin 10.5 L Blood Gas Temperature 37.0 Blood Gas Respiration Rate 20.0 Blood Gas Actual Respiration Rate 20 Blood Gas Modality VENT - AC FiO2 60.0 Blood Gas Tidal Volume 500.0 Blood Gas High PEEP Setting 5.0 Blood Gas Notified Whom TM Blood Gas Notified Time 02/26/2017 7:18:55 AM Medications Current Medications Metoprolol Tartrate (Lopressor) 25 mg BID PO Last administered on 02/20/17 09: 53; Admin Dose 25 MG; Start 02/11/17 at 21:00 Ondansetron HCl (Zofran Inj) 4 mg Q6H PRN IV NAUSEA AND/OR VOMITING Last administered on 02/13/17 00:36; Admin Dose 4 MG; Start 02/11/17 at 10:00 Acetaminophen (Tylenol Tab) 650 mg Q6H PRN PO PAIN LEVEL 1-3 OR FEVER Last administered on 02/25/17 19:51; Admin Dose 650 MG; Start 02/11/17 at 10:00 Morphine Sulfate (morphine) 2 mg Q4H PRN IV PAIN LEVEL 7-10 Last administered on 02/24/17 01:00; Admin Dose 2 MG; Start 02/11/17 at 10:00 Docusate Sodium (Colace) 100 mg Q12H PRN PO CONSTIPATION; Start 02/11/17 at 10: 00 Bisacodyl (Dulcolax Supp) 10 mg DAILY PRN [place] CONSTIPATION; Start 02/11/17 at 10 :00 Miscellaneous Information (Pending Santyl Order For Wound Care) This patient prado... PRN PRN XX WOUND CARE; Start 02/11/17 at 19:00 Collagenase (Santyl) 1 applic DAILY TOP Last administered on 02/25/17 09:02; Admin Dose 1 APPLIC; Start 02/12/17 at 13:30 Diphenhydramine HCl 25 mg 25 mg Q6H PRN IV ITCHING Last administered on 03:22; Admin Dose 25 MG; Start 02/12/17 at 14:00 Total Parenteral Nutrition (Tpn) 1,000 ml @ 40 mls/hr Q24H IV Last administered on 02/25/17 18:53; Admin Dose 40 MLS/HR; Start 02/12/17 at 18:00 Alprazolam 0.25 mg 0.25 mg Q12H PRN PO ANXIETY Last administered on 02/23/17 02:09; Admin Dose 0.25 MG; Start 02/19/17 at 14:00 Norepinephrine 16 mg/Dextrose 500 ml @ 1.87 mls/hr TITRATE IV Last administered on 02/26/17 03:57; Admin Dose 56.25 MLS/HR; Start 02/21/17 at 17: 30 Sodium Chloride 250 ml @ 250 mls/hr Q1H PRN IV abp below 90 Last administered on 02/21/17 20:08; Admin Dose 250 MLS/HR; Start 02/21/17 at 17:30 Fluconazole (Diflucan 200 Mg/ NS (Pmx)) 100 ml @ 100 mls/hr Q24H IVPB Last administered on 02/25/17 11:43; Admin Dose 100 MLS/HR; Start 02/22/17 at 11:00 Pantoprazole (Protonix Iv) 40 mg DAILY@06 IV Last administered on 02/26/17 05: 00; Admin Dose 40 MG; Start 02/23/17 at 06:00 Midodrine (Proamatine) 5 mg TID PO Last administered on 02/26/17 08:32; Admin Dose 5 MG; Start 02/23/17 at 13:30 Lorazepam (Ativan) 0.5 mg Q8H PRN IV AGITATION/ANXIETY; Start 02/23/17 at 13:30 Miscellaneous Information DAILY XX ; Start 02/25/17 at 09:00 Vancomycin HCl 750 mg/Dextrose/ Water 150 ml @ 100 mls/hr Q24H IVPB Last administered on 02/26/17 05:00; Admin Dose 100 MLS/HR; Start 02/26/17 at 04:00 ; Status Future Hold Phenylephrine HCl 40 mg/Dextrose 500 ml @ 75 mls/hr TITRATE IV Last administered on 02/25/17 19:54; Admin Dose 30 MLS/HR; Start 02/25/17 at 10:30 Midazolam HCl 50 ml @ 1 mls/hr TITRATE IV Last administered on 02/25/17 22:54 ; Admin Dose 2 MLS/HR; Start 02/25/17 at 10:00 Fentanyl 100 ml @ 2.5 mls/hr TITRATE IV Last administered on 02/25/17 10:43; Admin Dose 2.5 MLS/HR; Start 02/25/17 at 10:00 Meropenem/Sodium Chloride (Merrem 500mg/50 ml(Pmx)) 50 ml @ 100 mls/hr Q12 IVPB ; Start 02/26/17 at 09:00 Miscellaneous Information (*Rx Drug Level Order Reminder*) VANCO RANDOM LEVEL... ONCE ONCE XX ; Start 02/27/17 at 05:00; Stop 02/27/17 at 05:01 Assessment/Plan Chief Complaint/Hosp Course Assessment 1. Recent severe pancreatitis completed by pseudocyst pending drainage. 2. Anemia of unclear etiology currently not stable for EGD given severe hypoxemia, she would require intubation and mechanical ventilation 3. Hypoxemic respiratory failure combination of volume overload and right pleural effusion. Now intubated on mechanical ventilation 4. Septic shock multifactorial 5. Nutrition continues TPN. 6. Tachycardia likely secondary to ongoing abdominal condition. 7. History of thromboembolic disease status post IVC filter Plan 1. Continue mechanical ventilation 2. Continue vasopressor support 3. GI and surgery recommendations 4. Continue DVT and GI prophylaxis Prognosis very poor. Critical care time 40 minutes. Problems: SLAVA MCBRIDE MD, [facility] Feb 26, 2017 10:15
[2017-02-26] MEDS: MEROPENEM 500MG/50 ML (PMX) 50 ML IVPB SCH ×2 (11:18→21:26)
--- NOTE | 2017-02-26 12:20 | PN ---
Date/Time of Note Date/Time of Note DATE: 02/26/17 TIME: 12:16 Assessment/Plan VTE Prophylaxis VTE Prophylaxis Intervention: SCD's (Status post IVC filter, repeat Dopplers negative for DVT) Lines/Catheters IV Catheter Type (from Nrs): PICC Line Central line still needed: Yes (For TPN, however needs to be changed due to findings of fungemia) Urinary Cath still in place: Yes Reason Cath still needed: other (indicate) (Urinary retention, has to be changed due to findings of fungemia) Assessment/Plan Assessment/Plan 86 yo female with: 1. Acute Respiratory failure, in setting of pleural effusions, atelectasis, severe anemia and poor overall clinical status. Patient in ICU on mechanical ventilation due to deteriorating respiratory status and pressors. CXR still with volume overload and pleural effusion even s/p thoracentesis 02/20 with -300 cc and another right thoracentesis today with removal of less than 100 cc, also given yellow sputum and fever overnight, started Vanco along with Meropenem. On mechanical ventilation, patient in the volume overload however even her hemodynamics, decreased UOP and ongoing hypernatremia Fluid bolus challenge, off Lasix. CT chest pending 2. Sepsis and likely septic shock, blood culture today positive for yeast, patient likely has fungemia she does have a risk factors but this is the first time her blood cultures are growing yeast, she has been on Diflucan throughout her admission and at discharge from the outside hospital, she will be switched to Cancidas today. PICC line needs to be changed, ideally it should be removed and replaced in the next 2-3 days however we do need IV access for her pressors , sedating agent. Therefore after discussion with infectious disease the plan is to remove the PICC line from one extremity and place a new one on the opposite extremity and continue to treat with Cancidas Dr. Murphy from infectious diseases consulted Patient is currently intubated, she is on Versed and fentanyl for sedation and therefore her pressors had to be increased she is on Levophed and Erci- Synephrine had to be added. 3. S/p Severe pancreatitis with pseudocyst, currently on TPN. We will have to reevaluate TPN as the ED is 1 of the risk factors for fungemia and unfortunately the patient currently does have fungemia. CAT scan of the abdomen and pelvis has been compared to the one done at [facility] approximately 3 weeks ago, cholecystostomy tube has been removed however there is concern as the patient has a new fluid collection in addition of the previous pseudocyst also previous pseudocyst seems to have increased in size and there is concern for possible infection. Still waiting for drainage of 2nd cyst but INR at 1.4 and patient clinically declined further now intubated and on 2 pressors with ongoing sepsis. Per Surgery note last week, ? bleeding in pseudocyst but patient was not stable to get bleeding scan due to fact she was on BiPAP Continue Meropenem, Vanco has been added based on cultures, now Cancidas also started and patient off Diflucan. Follow-up infectious disease recommendations today. 4. Acute on chronic anemia status post blood product transfusion at least twice during this admission, Hb has been stable lately. Bleeding scan was not done due to respiratory distress and needs for continuous BiPAP GI following. No signs of acute bleeding so far however patient does have positive fecal occult blood. Appreciate GI consult, patient and her son declined EGD prior. Appreciate recommendations of Dr Hannah, may still needs CT guided drainage of 2nd pseudocyst by IR, however patient now with hemodynamic instability and intubated, likely also coagulopathic from a septic state, not a candidate for IR procedure currently. 5. Hypotension: Based on records patient has been actually put on midodrine 5 mg p.o. tid due to ongoing hypotension even at discharge from [facility], Now the patient intubated, and also septic with fungemia on blood cultures today , continue Levophed and Eric-Synephrine for blood pressure support. Continue antibiotics. 6. Urinary retention, status post acute kidney injury at [facility] , renal function seems to be much better, Elder catheter in place. Repeat UA wnl , repeat Urine cx negative. Repeat urine culture from yesterday positive with yeast, patient now on Cancidas and Elder catheter to be changed 6. Hypernatremia, Nutrition: Seems to be resolved as of yesterday, will have to hold off of TPN. Acute kidney injury noted with mild bump in her creatinine. IV fluids to be continued or started if okay with nephrology. Appreciate nephrology assistance from Dr. Partida 7. Sinus Tachycardia: Per report from [facility] patient has sinus tachycardia. Resolved as patient in less distress currently after intubation and sedation. 8. Venous thromboembolism with episode of DVT, status post IVC filter. Repeat Doppler negative for DVT 9. Mild coagulopathy: PTT wnl, Vitamin K and FFP as needed for INR 1.4 but to be noted patient with VTE, s/p IVC filter . Prophylaxis: Protonix for GI prophylaxis, SCDs and status post IVC filter for DVT prophylaxis Disposition: ICU now, intubated on mechanical ventilation , attempted repeat thoracentesis right pleural effusion with very minimal output. Pending CT chest but unable to perform due to patient's hemodynamic instability Patient's prognosis is even worse with findings of fungemia, family will be updated. Full code Subjective 24 Hr Interval Summary Free Text/Dictation Patient's blood culture today came back with yeast, she has been on Diflucan and also is a TPN patient with a PICC line from outside hospital. Of note admission blood cultures and urine cultures did not grow yeast at any point. Therefore these new fungal infection is definitely recent. Her antifungal have been switched to Cancidas. Infectious disease will be consulted. This is even worsening this patient's prognosis. PICC line will have to be discontinued with tip sent for culture and ideally patient will need another access as she is also on pressors currently and sedating agents along with TPN Exam/Review of Systems Vital Signs Vitals Vital Signs Date Time Temp Pulse Resp B/P Pulse Ox O2 Delivery O2 Flow Rate FiO2 02/26/17 11:45 101 21 109/69 92 02/26/17 11:00 Mechanical Ventilator 02/26/17 08:00 98.1 02/26/17 08:00 60 02/23/17 02:43 4.0 Intake and Output 02/25/17 02/25/17 02/26/17 15:00 23:00 07:00 Intake Total 1493.836 ml 856.98 ml 924.25 ml Output Total 110 ml 90 ml 110 ml Balance 1383.836 ml 766.98 ml 814.25 ml Exam Constitutional: other (Sedated and intubated) Respiratory: diminished breath sounds (Good aeration, decreased breath sounds bases), other (On mechanical ventilation) Cardiovascular: nl pulses, regular rate and rhythm Gastrointestinal: non-tender, soft Genitourinary - Female: other (Need Elder catheter changed) Musculoskeletal: swelling (Anasarca) Extremities: normal pulses Neurological: other (Sedated and intubated) Results Result Diagram: 02/26/17 0350 02/26/17 0350 Results 24 hrs Laboratory Tests Test 02/25/17 14:40 02/25/17 15:25 02/26/17 03:50 02/26/17 07:00 Sodium Level 134 #L 140 Potassium Level 3.5 4.7 Chloride Level 99 # 105 Carbon Dioxide Level 25 25 Anion Gap 14 15 Blood Urea Nitrogen 35 H 43 H Creatinine 0.91 1.30 H Glucose Level 405 #*H 94 # Calcium Level 7.6 L 8.3 L Magnesium Level 2.0 2.2 Total Bilirubin 2.9 H 3.2 H Direct Bilirubin 2.30 H 2.50 H Indirect Bilirubin 0.6 0.7 Aspartate Amino Transf (AST/SGOT) 79 H 67 H Alanine Aminotransferase (ALT/SGPT) 52 45 Alkaline Phosphatase 300 H 304 H Total Protein 4.8 L 5.4 L Albumin 1.5 L 1.6 L Globulin 3.30 H 3.80 H Albumin/Globulin Ratio 0.45 0.42 Bedside Glucose 100 White Blood Count 13.4 H Red Blood Count 1.30 #L Hemoglobin 9.3 L Hematocrit 28.7 L Mean Corpuscular Volume 94.7 Mean Corpuscular Hemoglobin 30.7 Mean Corpuscular Hemoglobin Concent 32.4 Red Cell Distribution Width 27.3 #H Platelet Count 49 L Mean Platelet Volume Neutrophils % 56.3 Lymphocytes % 39.8 Monocytes % 1.9 Eosinophils % 0.7 Basophils % 0.4 Nucleated Red Blood Cells % 0.1 H Neutrophils # 7.5 Lymphocytes # 5.3 H Monocytes # 0.3 Eosinophils # 0.1 Basophils # 0.1 Nucleated Red Blood Cells # 0.0 Prothrombin Time 18.2 H Prothrombin Time Ratio 1.4 INR International Normalized Ratio 1.50 Activated Partial Thromboplast Time 58.7 H Lactic Acid Level 4.2 *H Phosphorus Level 3.2 Blood Gas Specimen Source Blood arterial Arterial Blood Date Drawn 02/26/2017 7:00:05 AM Arterial Blood pH (Temp corrected) 7.426 Arterial Blood pCO2 (Temp correct) 34.0 L Arterial Blood pO2 (Temp corrected) 59.0 L Arterial Blood HCO3 21.9 L Arterial Blood Base Excess -2.0 Arterial Blood Oxygen Saturation 89.8 L Shreyas Test ACCEPTAB Arterial Blood Gas Puncture Site Right Radial Arterial Blood Carboxyhemoglobin 0.3 Arterial Blood Methemoglobin 0.4 Blood Gas A-a O2 Differential 331.4 H Oxyhemoglobin Percent 89.2 L Total Hemoglobin 10.5 L Blood Gas Temperature 37.0 Blood Gas Respiration Rate 20.0 Blood Gas Actual Respiration Rate 20 Blood Gas Modality VENT - AC FiO2 60.0 Blood Gas Tidal Volume 500.0 Blood Gas High PEEP Setting 5.0 Blood Gas Notified Whom TM Blood Gas Notified Time 02/26/2017 7:18:55 AM Medications Medications Current Medications Metoprolol Tartrate (Lopressor) 25 mg BID PO Last administered on 02/20/17 09: 53; Admin Dose 25 MG; Start 02/11/17 at 21:00 Ondansetron HCl (Zofran Inj) 4 mg Q6H PRN IV NAUSEA AND/OR VOMITING Last administered on 02/13/17 00:36; Admin Dose 4 MG; Start 02/11/17 at 10:00 Acetaminophen (Tylenol Tab) 650 mg Q6H PRN PO PAIN LEVEL 1-3 OR FEVER Last administered on 02/25/17 19:51; Admin Dose 650 MG; Start 02/11/17 at 10:00 Morphine Sulfate (morphine) 2 mg Q4H PRN IV PAIN LEVEL 7-10 Last administered on 02/24/17 01:00; Admin Dose 2 MG; Start 02/11/17 at 10:00 Docusate Sodium (Colace) 100 mg Q12H PRN PO CONSTIPATION; Start 02/11/17 at 10: 00 Bisacodyl (Dulcolax Supp) 10 mg DAILY PRN [place] CONSTIPATION; Start 02/11/17 at 10 :00 Miscellaneous Information (Pending Santyl Order For Wound Care) This patient prado... PRN PRN XX WOUND CARE; Start 02/11/17 at 19:00 Collagenase (Santyl) 1 applic DAILY TOP Last administered on 02/25/17 09:02; Admin Dose 1 APPLIC; Start 02/12/17 at 13:30 Diphenhydramine HCl 25 mg 25 mg Q6H PRN IV ITCHING Last administered on 03:22; Admin Dose 25 MG; Start 02/12/17 at 14:00 Total Parenteral Nutrition (Tpn) 1,000 ml @ 40 mls/hr Q24H IV Last administered on 02/25/17 18:53; Admin Dose 40 MLS/HR; Start 02/12/17 at 18:00 Alprazolam 0.25 mg 0.25 mg Q12H PRN PO ANXIETY Last administered on 02/23/17 02:09; Admin Dose 0.25 MG; Start 02/19/17 at 14:00 Norepinephrine 16 mg/Dextrose 500 ml @ 1.87 mls/hr TITRATE IV Last administered on 02/26/17 03:57; Admin Dose 56.25 MLS/HR; Start 02/21/17 at 17: 30 Sodium Chloride 250 ml @ 250 mls/hr Q1H PRN IV abp below 90 Last administered on 02/21/17 20:08; Admin Dose 250 MLS/HR; Start 02/21/17 at 17:30 Fluconazole (Diflucan 200 Mg/ NS (Pmx)) 100 ml @ 100 mls/hr Q24H IVPB Last administered on 02/25/17 11:43; Admin Dose 100 MLS/HR; Start 02/22/17 at 11:00 Pantoprazole (Protonix Iv) 40 mg DAILY@06 IV Last administered on 02/26/17 05: 00; Admin Dose 40 MG; Start 02/23/17 at 06:00 Midodrine (Proamatine) 5 mg TID PO Last administered on 02/26/17 08:32; Admin Dose 5 MG; Start 02/23/17 at 13:30 Lorazepam (Ativan) 0.5 mg Q8H PRN IV AGITATION/ANXIETY; Start 02/23/17 at 13:30 Miscellaneous Information DAILY XX ; Start 02/25/17 at 09:00 Vancomycin HCl 750 mg/Dextrose/ Water 150 ml @ 100 mls/hr Q24H IVPB Last administered on 02/26/17 05:00; Admin Dose 100 MLS/HR; Start 02/26/17 at 04:00 ; Status Future Hold Phenylephrine HCl 40 mg/Dextrose 500 ml @ 75 mls/hr TITRATE IV Last administered on 02/25/17 19:54; Admin Dose 30 MLS/HR; Start 02/25/17 at 10:30 Midazolam HCl 50 ml @ 1 mls/hr TITRATE IV Last administered on 02/25/17 22:54 ; Admin Dose 2 MLS/HR; Start 02/25/17 at 10:00 Fentanyl 100 ml @ 2.5 mls/hr TITRATE IV Last administered on 02/25/17 10:43; Admin Dose 2.5 MLS/HR; Start 02/25/17 at 10:00 Meropenem/Sodium Chloride (Merrem 500mg/50 ml(Pmx)) 50 ml @ 100 mls/hr Q12 IVPB Last administered on 02/26/17 11:18; Admin Dose 100 MLS/HR; Start at 09:00 Miscellaneous Information (*Rx Drug Level Order Reminder*) VANCO RANDOM LEVEL... ONCE ONCE XX ; Start 02/27/17 at 05:00; Stop 02/27/17 at 05:01 BONIFACIO COWART Feb 26, 2017 12:20
[2017-02-26] MEDS ORDERED: LIDOCAINE 1% (MPF) 5 ML VIAL SC ONE (13:30)
[2017-02-26] MEDS: COLLAGENASE 30 GM TUBE TOP SCH (14:00)
[2017-02-26] MEDS: PHENYLephrine 40 MG in DEXTROSE 5% 496 ML IV SCH (14:12)
[2017-02-26] MEDS ORDERED: CASPOFUNGIN 70 MG in SOD CHLORIDE 0.9% 250 ML IVPB ONE (14:30)
--- NOTE | 2017-02-26 15:52 | CONS ---
Date/Time of Note Date/Time of Note DATE: 02/26/17 TIME: 15:49 Consultation Date/Type/Reason Admit Date/Time Feb 11, 2017 at 05:28 Type of Consultation: ID Reason for Consultation Antibiotic management.Discussed with Dr. Loja. Picc line to be removed and replaced. Pt. with fungemia,mow on Cancidas.Continue Vanco and meropenem. Constitutional: requiring IVF Eyes: no complaints ENT: no complaints Respiratory: shortness of breath Cardiovascular: other (Tachycardia) Gastrointestinal: pain (Upper, mild) Genitourinary: no complaints, other (Elder catheter) Musculoskeletal: other (Generalized weakness) Neurologic: no complaints Endocrine: no complaints Lymphatic: no complaints Psychological: no complaints Past Medical History Medical History: deep vein thrombosis, gallstones Past Surgical History Past Surgical Hx: endoscopy, other (ivc filter,s/p tube cholecystostomy) Social History Alcohol Use: none Smoking Status: Former smoker Drug Use: none Exam/Review of Systems Vital Signs Vitals Vital Signs Date Time Temp Pulse Resp B/P Pulse Ox O2 Delivery O2 Flow Rate FiO2 02/26/17 15:00 95 21 120/71 92 02/26/17 12:00 98.6 02/26/17 11:00 Mechanical Ventilator 02/26/17 08:00 60 02/23/17 02:43 4.0 Intake and Output 02/25/17 02/25/17 02/26/17 15:00 23:00 07:00 Intake Total 1493.836 ml 856.98 ml 1014.50 ml Output Total 110 ml 90 ml 110 ml Balance 1383.836 ml 766.98 ml 904.50 ml Results Result Diagram: 02/26/17 0350 02/26/17 0350 Results 24 hrs Laboratory Tests Test 02/26/17 03:50 02/26/17 07:00 02/26/17 13:51 White Blood Count 13.4 H Red Blood Count 1.30 #L Hemoglobin 9.3 L Hematocrit 28.7 L Mean Corpuscular Volume 94.7 Mean Corpuscular Hemoglobin 30.7 Mean Corpuscular Hemoglobin Concent 32.4 Red Cell Distribution Width 27.3 #H Platelet Count 49 L Mean Platelet Volume Neutrophils % 56.3 Lymphocytes % 39.8 Monocytes % 1.9 Eosinophils % 0.7 Basophils % 0.4 Nucleated Red Blood Cells % 0.1 H Neutrophils # 7.5 Lymphocytes # 5.3 H Monocytes # 0.3 Eosinophils # 0.1 Basophils # 0.1 Nucleated Red Blood Cells # 0.0 Prothrombin Time 18.2 H Prothrombin Time Ratio 1.4 INR International Normalized Ratio 1.50 Activated Partial Thromboplast Time 58.7 H Sodium Level 140 Potassium Level 4.7 Chloride Level 105 Carbon Dioxide Level 25 Anion Gap 15 Blood Urea Nitrogen 43 H Creatinine 1.30 H Glucose Level 94 # Lactic Acid Level 4.2 *H 3.1 *H Calcium Level 8.3 L Phosphorus Level 3.2 Magnesium Level 2.2 Total Bilirubin 3.2 H Direct Bilirubin 2.50 H Indirect Bilirubin 0.7 Aspartate Amino Transf (AST/SGOT) 67 H Alanine Aminotransferase (ALT/SGPT) 45 Alkaline Phosphatase 304 H Total Protein 5.4 L Albumin 1.6 L Globulin 3.80 H Albumin/Globulin Ratio 0.42 Blood Gas Specimen Source Blood arterial Arterial Blood Date Drawn 02/26/2017 7:00:05 AM Arterial Blood pH (Temp corrected) 7.426 Arterial Blood pCO2 (Temp correct) 34.0 L Arterial Blood pO2 (Temp corrected) 59.0 L Arterial Blood HCO3 21.9 L Arterial Blood Base Excess -2.0 Arterial Blood Oxygen Saturation 89.8 L Shreyas Test ACCEPTAB Arterial Blood Gas Puncture Site Right Radial Arterial Blood Carboxyhemoglobin 0.3 Arterial Blood Methemoglobin 0.4 Blood Gas A-a O2 Differential 331.4 H Oxyhemoglobin Percent 89.2 L Total Hemoglobin 10.5 L Blood Gas Temperature 37.0 Blood Gas Respiration Rate 20.0 Blood Gas Actual Respiration Rate 20 Blood Gas Modality VENT - AC FiO2 60.0 Blood Gas Tidal Volume 500.0 Blood Gas High PEEP Setting 5.0 Blood Gas Notified Whom TM Blood Gas Notified Time 02/26/2017 7:18:55 AM Medications Medications Current Medications Metoprolol Tartrate (Lopressor) 25 mg BID PO Last administered on 02/20/17 09: 53; Admin Dose 25 MG; Start 02/11/17 at 21:00 Ondansetron HCl (Zofran Inj) 4 mg Q6H PRN IV NAUSEA AND/OR VOMITING Last administered on 02/13/17 00:36; Admin Dose 4 MG; Start 02/11/17 at 10:00 Acetaminophen (Tylenol Tab) 650 mg Q6H PRN PO PAIN LEVEL 1-3 OR FEVER Last administered on 02/25/17 19:51; Admin Dose 650 MG; Start 02/11/17 at 10:00 Morphine Sulfate (morphine) 2 mg Q4H PRN IV PAIN LEVEL 7-10 Last administered on 02/24/17 01:00; Admin Dose 2 MG; Start 02/11/17 at 10:00 Docusate Sodium (Colace) 100 mg Q12H PRN PO CONSTIPATION; Start 02/11/17 at 10: 00 Bisacodyl (Dulcolax Supp) 10 mg DAILY PRN [place] CONSTIPATION; Start 02/11/17 at 10 :00 Miscellaneous Information (Pending Santyl Order For Wound Care) This patient prado... PRN PRN XX WOUND CARE; Start 02/11/17 at 19:00 Collagenase (Santyl) 1 applic DAILY TOP Last administered on 02/25/17 09:02; Admin Dose 1 APPLIC; Start 02/12/17 at 13:30 Diphenhydramine HCl 25 mg 25 mg Q6H PRN IV ITCHING Last administered on 03:22; Admin Dose 25 MG; Start 02/12/17 at 14:00 Total Parenteral Nutrition (Tpn) 1,000 ml @ 40 mls/hr Q24H IV Last administered on 02/25/17 18:53; Admin Dose 40 MLS/HR; Start 02/12/17 at 18:00 Alprazolam 0.25 mg 0.25 mg Q12H PRN PO ANXIETY Last administered on 02/23/17 02:09; Admin Dose 0.25 MG; Start 02/19/17 at 14:00 Norepinephrine 16 mg/Dextrose 500 ml @ 1.87 mls/hr TITRATE IV Last administered on 02/26/17 13:42; Admin Dose 56.25 MLS/HR; Start 02/21/17 at 17: 30 Sodium Chloride (NS) 250 ml @ 250 mls/hr Q1H PRN IV abp below 90 Last administered on 02/21/17 20:08; Admin Dose 250 MLS/HR; Start 02/21/17 at 17:30 Pantoprazole (Protonix Iv) 40 mg DAILY@06 IV Last administered on 02/26/17 05: 00; Admin Dose 40 MG; Start 02/23/17 at 06:00 Midodrine (Proamatine) 5 mg TID PO Last administered on 02/26/17 12:31; Admin Dose 5 MG; Start 02/23/17 at 13:30 Lorazepam (Ativan) 0.5 mg Q8H PRN IV AGITATION/ANXIETY; Start 02/23/17 at 13:30 Miscellaneous Information DAILY XX ; Start 02/25/17 at 09:00 Vancomycin HCl 750 mg/Dextrose/ Water 150 ml @ 100 mls/hr Q24H IVPB Last administered on 02/26/17 05:00; Admin Dose 100 MLS/HR; Start 02/26/17 at 04:00 ; Status Future Hold Phenylephrine HCl 40 mg/Dextrose 500 ml @ 75 mls/hr TITRATE IV Last administered on 02/26/17 14:12; Admin Dose 37.5 MLS/HR; Start 02/25/17 at 10:30 Midazolam HCl 50 ml @ 1 mls/hr TITRATE IV Last administered on 02/25/17 22:54 ; Admin Dose 2 MLS/HR; Start 02/25/17 at 10:00 Fentanyl 100 ml @ 2.5 mls/hr TITRATE IV Last administered on 02/25/17 10:43; Admin Dose 2.5 MLS/HR; Start 02/25/17 at 10:00 Meropenem/Sodium Chloride (Merrem 500mg/50 ml(Pmx)) 50 ml @ 100 mls/hr Q12 IVPB Last administered on 02/26/17 11:18; Admin Dose 100 MLS/HR; Start at 09:00 Miscellaneous Information VANCO RANDOM LEVEL... ONCE ONCE XX ; Start 02/27/17 at 05:00; Stop 02/27/17 at 05:01 Caspofungin/ Sodium Chloride (Cancidas/NS) 250 ml @ 250 mls/hr Q24H IVPB ; Start 02/27/17 at 14:30 ANGEL AGUILAR MD Feb 26, 2017 15:52
--- NOTE | 2017-02-26 16:57 | PN ---
Date/Time of Note Date/Time of Note DATE: 02/26/17 TIME: 16:54 Assessment/Plan VTE Prophylaxis VTE Prophylaxis Intervention: contraindicated VTE Contraindication Reason: bleeding Lines/Catheters IV Catheter Type (from Nrs): PICC Line Central line still needed: Yes Urinary Cath still in place: Yes Reason Cath still needed: urinary retention Assessment/Plan Assessment/Plan * Sepsis * Acute respiratory failure management c/o pulmonary * Anemia hemoglobin * Refused EGD * Pancreatitis with Pancreatic pseudocyst/awaiting drainage * Coagulopathy * H/O tube cholecystostomy * H/O ERCP removal of stone with biliary stent * Plan * Continue present regimen * monitor hemoglobin and hematocrit daily and transfuse per protocol * further orders will depend on clinical course * case discussed with DR Hill Subjective 24 Hr Interval Summary Free Text/Dictation * Course reviewed * No untoward events overnight * blood culture (+) yeast Exam/Review of Systems Vital Signs Vitals Vital Signs Date Time Temp Pulse Resp B/P Pulse Ox O2 Delivery O2 Flow Rate FiO2 02/26/17 16:00 97 02/26/17 15:00 21 120/71 92 02/26/17 12:00 98.6 02/26/17 11:00 Mechanical Ventilator 02/26/17 08:00 60 02/23/17 02:43 4.0 Intake and Output 02/25/17 02/25/17 02/26/17 15:00 23:00 07:00 Intake Total 1493.836 ml 856.98 ml 1014.50 ml Output Total 110 ml 90 ml 110 ml Balance 1383.836 ml 766.98 ml 904.50 ml Exam Constitutional: frail ENMT: intubated Respiratory: crackles/rales, diminished breath sounds Cardiovascular: nl pulses, regular rate and rhythm Gastrointestinal: bowel sounds, distended, non-tender, soft Musculoskeletal: muscle weakness Extremities: edema, pitting pedal edema Neurological: other (sedated) Skin: rash or lesions Lymph: nl lymph nodes Results Result Diagram: 02/26/17 0350 02/26/17 0350 Results 24 hrs Laboratory Tests Test 02/26/17 03:50 02/26/17 07:00 02/26/17 13:51 White Blood Count 13.4 H Red Blood Count 1.30 #L Hemoglobin 9.3 L Hematocrit 28.7 L Mean Corpuscular Volume 94.7 Mean Corpuscular Hemoglobin 30.7 Mean Corpuscular Hemoglobin Concent 32.4 Red Cell Distribution Width 27.3 #H Platelet Count 49 L Mean Platelet Volume Neutrophils % 56.3 Lymphocytes % 39.8 Monocytes % 1.9 Eosinophils % 0.7 Basophils % 0.4 Nucleated Red Blood Cells % 0.1 H Neutrophils # 7.5 Lymphocytes # 5.3 H Monocytes # 0.3 Eosinophils # 0.1 Basophils # 0.1 Nucleated Red Blood Cells # 0.0 Prothrombin Time 18.2 H Prothrombin Time Ratio 1.4 INR International Normalized Ratio 1.50 Activated Partial Thromboplast Time 58.7 H Sodium Level 140 Potassium Level 4.7 Chloride Level 105 Carbon Dioxide Level 25 Anion Gap 15 Blood Urea Nitrogen 43 H Creatinine 1.30 H Glucose Level 94 # Lactic Acid Level 4.2 *H 3.1 *H Calcium Level 8.3 L Phosphorus Level 3.2 Magnesium Level 2.2 Total Bilirubin 3.2 H Direct Bilirubin 2.50 H Indirect Bilirubin 0.7 Aspartate Amino Transf (AST/SGOT) 67 H Alanine Aminotransferase (ALT/SGPT) 45 Alkaline Phosphatase 304 H Total Protein 5.4 L Albumin 1.6 L Globulin 3.80 H Albumin/Globulin Ratio 0.42 Blood Gas Specimen Source Blood arterial Arterial Blood Date Drawn 02/26/2017 7:00:05 AM Arterial Blood pH (Temp corrected) 7.426 Arterial Blood pCO2 (Temp correct) 34.0 L Arterial Blood pO2 (Temp corrected) 59.0 L Arterial Blood HCO3 21.9 L Arterial Blood Base Excess -2.0 Arterial Blood Oxygen Saturation 89.8 L Shreyas Test ACCEPTAB Arterial Blood Gas Puncture Site Right Radial Arterial Blood Carboxyhemoglobin 0.3 Arterial Blood Methemoglobin 0.4 Blood Gas A-a O2 Differential 331.4 H Oxyhemoglobin Percent 89.2 L Total Hemoglobin 10.5 L Blood Gas Temperature 37.0 Blood Gas Respiration Rate 20.0 Blood Gas Actual Respiration Rate 20 Blood Gas Modality VENT - AC FiO2 60.0 Blood Gas Tidal Volume 500.0 Blood Gas High PEEP Setting 5.0 Blood Gas Notified Whom TM Blood Gas Notified Time 02/26/2017 7:18:55 AM Medications Medications Current Medications Metoprolol Tartrate (Lopressor) 25 mg BID PO Last administered on 02/20/17t 09: 53; Admin Dose 25 MG; Start 02/11/17 at 21:00 Ondansetron HCl (Zofran Inj) 4 mg Q6H PRN IV NAUSEA AND/OR VOMITING Last administered on 02/13/17 00:36; Admin Dose 4 MG; Start 02/11/17 at 10:00 Acetaminophen (Tylenol Tab) 650 mg Q6H PRN PO PAIN LEVEL 1-3 OR FEVER Last administered on 02/25/17 19:51; Admin Dose 650 MG; Start 02/11/17 at 10:00 Morphine Sulfate (morphine) 2 mg Q4H PRN IV PAIN LEVEL 7-10 Last administered on 02/24/17 01:00; Admin Dose 2 MG; Start 02/11/17 at 10:00 Docusate Sodium (Colace) 100 mg Q12H PRN PO CONSTIPATION; Start 02/11/17 at 10: 00 Bisacodyl (Dulcolax Supp) 10 mg DAILY PRN NV CONSTIPATION; Start 02/11/17 at 10 :00 Miscellaneous Information (Pending Santyl Order For Wound Care) This patient prado... PRN PRN XX WOUND CARE; Start 02/11/17 at 19:00 Collagenase (Santyl) 1 applic DAILY TOP Last administered on 02/25/17 09:02; Admin Dose 1 APPLIC; Start 02/12/17 at 13:30 Diphenhydramine HCl 25 mg 25 mg Q6H PRN IV ITCHING Last administered on 03:22; Admin Dose 25 MG; Start 02/12/17 at 14:00 Total Parenteral Nutrition (Tpn) 1,000 ml @ 40 mls/hr Q24H IV Last administered on 02/25/17 18:53; Admin Dose 40 MLS/HR; Start 02/12/17 at 18:00 Alprazolam 0.25 mg 0.25 mg Q12H PRN PO ANXIETY Last administered on 02/23/17 02:09; Admin Dose 0.25 MG; Start 02/19/17 at 14:00 Norepinephrine 16 mg/Dextrose 500 ml @ 1.87 mls/hr TITRATE IV Last administered on 02/26/17 13:42; Admin Dose 56.25 MLS/HR; Start 02/21/17 at 17: 30 Sodium Chloride (NS) 250 ml @ 250 mls/hr Q1H PRN IV abp below 90 Last administered on 02/21/17 20:08; Admin Dose 250 MLS/HR; Start 02/21/17 at 17:30 Pantoprazole (Protonix Iv) 40 mg DAILY@06 IV Last administered on 02/26/17 05: 00; Admin Dose 40 MG; Start 02/23/17 at 06:00 Midodrine (Proamatine) 5 mg TID PO Last administered on 02/26/17 12:31; Admin Dose 5 MG; Start 02/23/17 at 13:30 Lorazepam (Ativan) 0.5 mg Q8H PRN IV AGITATION/ANXIETY; Start 02/23/17 at 13:30 Miscellaneous Information DAILY XX ; Start 02/25/17 at 09:00 Vancomycin HCl 750 mg/Dextrose/ Water 150 ml @ 100 mls/hr Q24H IVPB Last administered on 02/26/17 05:00; Admin Dose 100 MLS/HR; Start 02/26/17 at 04:00 ; Status Future Hold Phenylephrine HCl 40 mg/Dextrose 500 ml @ 75 mls/hr TITRATE IV Last administered on 02/26/17 14:12; Admin Dose 37.5 MLS/HR; Start 02/25/17 at 10:30 Midazolam HCl 50 ml @ 1 mls/hr TITRATE IV Last administered on 02/25/17 22:54 ; Admin Dose 2 MLS/HR; Start 02/25/17 at 10:00 Fentanyl 100 ml @ 2.5 mls/hr TITRATE IV Last administered on 02/25/17 10:43; Admin Dose 2.5 MLS/HR; Start 02/25/17 at 10:00 Meropenem/Sodium Chloride (Merrem 500mg/50 ml(Pmx)) 50 ml @ 100 mls/hr Q12 IVPB Last administered on 02/26/17 11:18; Admin Dose 100 MLS/HR; Start at 09:00 Miscellaneous Information VANCO RANDOM LEVEL... ONCE ONCE XX ; Start 02/27/17 at 05:00; Stop 02/27/17 at 05:01 Caspofungin/ Sodium Chloride (Cancidas/NS) 250 ml @ 250 mls/hr Q24H IVPB ; Start 02/27/17 at 14:30 LUZMARIA SPAIN NP Feb 26, 2017 16:57
[2017-02-26] MEDS: TPN 1,000 ML IV SCH (17:44)
[2017-02-26] MEDS ORDERED: SOD CHLORIDE 0.9% 250 ML IV* ONE (18:11)
[2017-02-27] VITALS (104 sets, daily range): BP systolic 61–129; BP diastolic 36–76; PULSE 93–115; RESP 19–24
[2017-02-27] MEDS: IPRATROPIUM (HFA) 12.9 GM INHALER INH SCH ×4 (00:38→23:36)
[2017-02-27] MEDS: ALBUTEROL 18 GM INHALER INH SCH ×4 (00:38→23:36)
[2017-02-27] MEDS: PHENYLephrine 40 MG in DEXTROSE 5% 496 ML IV SCH (04:59)
--- NOTE | 2017-02-27 05:50 | CONS ---
DATE OF ADMISSION: 02/11/2017 DATE OF CONSULTATION: 02/26/2017 REASON FOR CONSULTATION: Antibiotic management. HISTORY OF PRESENT ILLNESS: The patient is an 86-year-old female who was admitted on 02/11/2017 and is being seen now for antibiotic management. PAST MEDICAL HISTORY: Her past problems on numerous and they include: 1. Acute on chronic anemia with a hemoglobin of 6.6 on admission. 2. Respiratory distress. Initially requiring BiPAP and now intubation. 3. Severe pancreatitis with pseudocyst currently on TPN and clear liquids. The patient was started on meropenem. CAT scan of the abdomen and pelvis compared to one done in [facility] 3 weeks ago shows a cholecystostomy tube has been removed. There was concern for new fluid collection in addition to the previous pseudocyst. Also previous pseudocyst seems to have increased in size. There was concern for possible infection. 4. Patient also presented with hypotension, urinary retention, tachycardia, venous thromboembolism with episode of DVT, status post IVC filter in the past. 5. So she has severe pancreatitis, status post cholecystostomy tube removal, status post acute kidney failure, multiorgan failure including respiratory failure, aspiration pneumonia, sinus tachycardia, and hypotension. HOSPITAL COURSE: The patient has been followed by multiple physicians and she was seen by Dr. Hill who noted anemia, acute versus chronic, pancreatitis with pancreatic pseudocyst. EGD planned. This was as of his note of 02/13/2017. The patient currently is growing out yeast from the urine and yeast from the blood. She had been on fluconazole previously. Her white count today is 13.4, H and H of 9.3 and 28.7, and platelet count 49,000. BUN and creatinine is 43/1.3. Her urinalysis showed 2 plus leukocyte esterase. A chest x-ray from today shows an endotracheal tube, a NG tube, a PICC line in the right arm, inferior vena cava filter noted, pulmonary vascular congestion, hazy opacity in the right mid lung zones unchanged, may represent a partially layering right pleural effusion and/or consolidation. Left retrocardiac opacity is unchanged. S shaped thoracolumbar scoliosis is demonstrated. Degenerative changes of the spine were also noted. So, she has an endotracheal tube, NG tube, right PICC line and inferior vena cava filter. ASSESSMENT: Currently, acute respiratory failure. Chest x-ray, still with volume overload, status post thoracentesis on 02/20/2017 with 300 cc taken off and another right thoracentesis today with removal of less than 100 cc. Also given yellow sputum and fever overnight she was started on vancomycin along with meropenem. Sepsis secondary to yeast. She has fungemia. First time blood cultures are growing yeast. She, therefore, after discussion with myself, [____] started on Cancidas. The PICC line needs to be change, but she is on pressors. Therefore, we have to remove the PICC from [address] new one elsewhere. She is intubated. She is sedated. She has severe pancreatitis with pseudocyst formation. Currently on TPN. Acute on chronic anemia, hypotension, urinary retention, status post acute kidney injury. Renal function is much better now. Elder catheter in place. PAST MEDICAL HISTORY: Operations as outlined. FAMILY HISTORY: Noncontributory. SOCIAL HISTORY: She does not smoke, drink, or abuse drugs. ALLERGIES: NONE TO PENICILLIN, SULFA, OR FOODS. MEDICATION: Per chart. REVIEW OF SYSTEMS: As per HPI. PHYSICAL EXAMINATION: GENERAL APPEARANCE: Patient is an elderly appearing female. She has an ET tube, NG tube, Elder catheter, PICC line, and IVC filter. SKIN: She has very frail, skin without generalized rash. HEENT: Within normal limits. NECK: Supple. Lymph nodes nonpalpable. CHEST: Decreased breath sounds at the bases. HEART: Without murmur or gallop. ABDOMEN: Soft, nontender, without organosplenomegaly or masses. EXTREMITIES: Without cyanosis, clubbing, or edema. RECTAL AND GENITAL EXAM: Deferred. Elder catheter in place. NEUROLOGICAL: She is sedated and intubated. IMPRESSION AND PLAN: Continue currently on vancomycin, meropenem and caspofungin. She is also on pressors. She needs to have her PICC line removed and replaced. I discussed the case with [____]. Dictated By: Ronan Murphy MD JD/billy/flaquita /Document#: [id number]
[2017-02-27] MEDS: PANTOPRAZOLE 40 MG INJ IV SCH (06:15)
[2017-02-27 07:10] LABS: INR 1.42; PROTIME 17.4 Sec (12.2-14.2); PT RATIO 1.4
[2017-02-27 07:12] LABS: PARTIAL THROMBOPLASTIN TIME 60.9 Sec (25.0-35.0)
[2017-02-27 07:23] LABS: ABNORMAL IP MESSAGE 1; HEMATOCRIT 22.4 % (37.0-47.0); MEAN CORPUSCULAR HEMOGLOBIN 27.5 pg (29.0-33.0); MEAN CORPUSCULAR HGB CONC 29.5 g/dl (32.0-37.0); MEAN CORPUSCULAR VOLUME 93.3 fl (82.0-101.0); MEAN PLATELET VOLUME 12.9 fl (7.4-10.4); PLATELET COUNT 47 10^3/UL (140-415); RED CELL DISTRIBUTION WIDTH 20.3 % (11.5-14.5); WHITE BLOOD COUNT 11.7 10^3/ul (4.8-10.8)
[2017-02-27 07:26] LABS: HEMOGLOBIN 6.6 g/dl (12.0-16.0); POSITIVE DIFF @See below
[2017-02-27 08:10] LABS: AADO2 Arterial 447.8 mmHg (7.0-24.0); Allen Test ACCEPTAB; Arterial Base Excess -3.3 mmol/L (-3.0-3); Arterial COHb 0.3 % (0.0-3.0); Arterial Fraction of Oxyhgb 95.7 % (93.0-99.0); Arterial HCO3 20.4 mmol/L (22.0-26.0); Arterial MetHb 0.6 % (0.0-1.5); Arterial Total Hemglobin 10.4 g/dl (12.0-18.0); MODE VENT - AC
[2017-02-27] MEDS: [UNRECOGNIZED DRUG - REMARK] XX SCH (09:00)
--- NOTE | 2017-02-27 09:02 | RADRPT ---
PROCEDURE: Chest Radiograph. CLINICAL INDICATION: Pneumonia. CHF. TECHNIQUE: Single frontal chest radiograph. COMPARISON: Chest radiograph 02/26/2017 FINDINGS: Endotracheal tube, nasogastric tube, and right upper extremity PICC remain in stable and radiographi jose appropriate position. Heart size is poorly evaluated. Atherosclerotic calcifications are pre sent. Mitral annular calcifications are unchanged . Diffuse interstitial opacities are present whi ch may represent chronic lung changes or pulmonary edema, stable. There is mild improved aeration o f the right lung base. Bibasilar opacities consistent with pleural effusions and adjacent atelectas is/infiltrate otherwise persist. IMPRESSION: 1. Mild improved aeration of the right lung base. 2. Otherwise stable radiographic appearance of the chest compared to 02/26/2017. RPTAT: KK .Chau West MD, Date Time Electronically viewed and signed by .Chau West MD, MD on 02/27/2017 09:02 .B/
[2017-02-27] MEDS: METOPROLOL 25 MG TAB PO SCH (09:19)
[2017-02-27 09:26] LABS: ANISOCYTOSIS 1+ (0-0); EOSINOPHILS % (M) 2 % (0-7); GIANT THROMBO% (M) 5 % (0-0); MICROCYTOSIS 1+ (0-0); PLATELET ESTIMATE DECREASED; POIKILOCYTOSIS 3+ (0-0); POLYCHROMASIA 3+ (0-0)
[2017-02-27] MEDS: MIDODRINE 5 MG TAB PO SCH ×3 (09:41→20:42)
[2017-02-27] MEDS: BALSAM PERU/CASTOR OIL 60 GM TUBE TOP SCH (09:41)
[2017-02-27] MEDS: COLLAGENASE 30 GM TUBE TOP SCH (09:41)
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
[2017-02-27 10:11] LABS: ABNORMAL IP MESSAGE 1; BASOPHILS % 0.3 % (0.0-2.0); EOSINOPHILS # 0.2 10^3/ul (0.0-0.5); EOSINOPHILS % 1.6 % (0.0-7.0); LYMPHOCYTES # 4.3 10^3/ul (0.8-2.9); LYMPHOCYTES % 31.7 % (15.0-51.0); MEAN PLATELET VOLUME 13.4 fl (7.4-10.4); MONOCYTE # 0.3 10^3/ul (0.3-0.9); NEUTROPHIL # 8.5 10^3/ul (1.6-7.5); NEUTROPHILS % 63.4 % (39.0-77.0); WHITE BLOOD COUNT 13.4 10^3/ul (4.8-10.8)
[2017-02-27 10:23] LABS: INR 1.28; PROTIME 16.1 Sec (12.2-14.2); PT RATIO 1.3
[2017-02-27 10:24] LABS: PARTIAL THROMBOPLASTIN TIME 55.4 Sec (25.0-35.0)
[2017-02-27 10:25] LABS: FIBRIN SPLIT PRODUCT >10 and <40 ug/ml (<10); PLATELET COUNT 75 10^3/UL (140-440)
[2017-02-27 10:26] LABS: RED BLOOD COUNT 1.11 10^6/ul (4.20-5.40); THROMBIN TIME 17.9 SEC (13.8-19.1)
[2017-02-27 10:27] LABS: PLATELET COUNT 75 10^3/UL (140-415); POSITIVE DIFF @See below
[2017-02-27 10:28] LABS: CALCIUM 8.3 mg/dl (8.4-10.2); CREATININE 1.54 mg/dl (0.44-1.00); PHOSPHORUS 4.7 mg/dl (2.5-4.9); POTASSIUM 5.3 mmol/L (3.5-5.1)
[2017-02-27] MEDS: MEROPENEM 500MG/50 ML (PMX) 50 ML IVPB SCH ×2 (10:30→20:42)
[2017-02-27 10:48] LABS: D-DIMER > 10000.00 ng/ml (<460)
[2017-02-27] MEDS ORDERED: VANCOMYCIN 750 MG in SOD CHLORIDE 0.9% 150 ML IVPB SCH (13:00)
--- NOTE | 2017-02-27 13:45 | CONS ---
Date/Time of Note Date/Time of Note DATE: 02/27/17 TIME: 13:43 Assessment/Plan Assessment/Plan Additional Assessment/Plan Respiratory failure Pancreatitis Infected PICC line Patient will be needing a central line However the son has refused a central line placement We will proceed with placement of a central line when son is agreeable Consultation Date/Type/Reason Admit Date/Time Feb 11, 2017 at 05:28 Initial Consult Date 02/21/17 Type of Consultation: ID Reason for Consultation Evaluation for central line placement Referring Provider: BONIFACIO COWART 24 HR Interval Summary Free Text/Dictation This is a 86-year-old female who was admitted with respiratory failure pancreatitis currently intubated in critical condition has a PICC line Patient will be needing long-term IV axis Subjective hx not possible: pt critical Exam/Review of Systems Vital Signs Vitals Vital Signs Date Time Temp Pulse Resp B/P Pulse Ox O2 Delivery O2 Flow Rate FiO2 02/27/17 12:00 102 02/27/17 11:45 21 107/59 97 02/27/17 11:00 Mechanical Ventilator 02/27/17 08:05 70 02/27/17 08:00 98.9 Intake and Output 02/26/17 02/26/17 02/27/17 15:00 23:00 07:00 Intake Total 892.50 ml 835.50 ml 856.75 ml Output Total 30 ml 135 ml 225 ml Balance 862.50 ml 700.50 ml 631.75 ml Exam ENMT: nl external ears & nose, nl lips & teeth, nl nasal mucosa & septum Neck: non-tender, supple Respiratory: clear to auscultation, normal air movement Cardiovascular: nl pulses, regular rate and rhythm Gastrointestinal: nl liver, spleen, non-tender, soft Results Result Diagram: 02/27/17 0950 02/27/17 0946 Results 24 hrs Laboratory Tests Test 02/26/17 13:51 02/27/17 05:39 02/27/17 06:13 02/27/17 07:00 Lactic Acid Level 3.1 *H 2.9 *H White Blood Count 11.7 H Red Blood Count 2.40 #L Hemoglobin 6.6 #*L Hematocrit 22.4 #L Mean Corpuscular Volume 93.3 Mean Corpuscular Hemoglobin 27.5 L Mean Corpuscular Hemoglobin Concent 29.5 L Red Cell Distribution Width 20.3 #H Platelet Count 47 L Mean Platelet Volume 12.9 H Neutrophils % Segmented Neutrophils % (Manual) 89 H Band Neutrophils % (Manual) 1 Lymphocytes % Lymphocytes % (Manual) 8 L Monocytes % Eosinophils % Eosinophils % (Manual) 2 Basophils % Nucleated Red Blood Cells % 0.0 Neutrophils # Neutrophils # (Manual) 10.4 H Band Neutrophils # 0.1 Absolute Lymphocytes (Manual) 0.9 Lymphocytes # Monocytes # Eosinophils # Basophils # Nucleated Red Blood Cells # Smudge Cells % 22 H Thrombocytosis 5 H Platelet Estimate DECREASED Polychromasia 3+ Poikilocytosis 3+ Anisocytosis 1+ Microcytosis 1+ Macrocytosis 1+ Prothrombin Time 17.4 H Prothrombin Time Ratio 1.4 INR International Normalized Ratio 1.42 Activated Partial Thromboplast Time 60.9 H Random Vancomycin Level 14.5 Blood Gas Specimen Source Blood arterial Arterial Blood Date Drawn 02/27/2017 7:30:37 AM Arterial Blood pH (Temp corrected) 7.422 Arterial Blood pCO2 (Temp correct) 32.0 L Arterial Blood pO2 (Temp corrected) 89.0 Arterial Blood HCO3 20.4 L Arterial Blood Base Excess -3.3 L Arterial Blood Oxygen Saturation 96.6 Shreyas Test ACCEPTAB Arterial Blood Gas Puncture Site Right Radial Arterial Blood Carboxyhemoglobin 0.3 Arterial Blood Methemoglobin 0.6 Blood Gas A-a O2 Differential 447.8 H Oxyhemoglobin Percent 95.7 Total Hemoglobin 10.4 L Blood Gas Temperature 37.0 Blood Gas Respiration Rate 20.0 Blood Gas Actual Respiration Rate 20 Blood Gas Modality VENT - AC FiO2 80.0 Blood Gas Tidal Volume 500.0 Blood Gas Low PEEP Setting 5.0 Blood Gas Notified Whom JLD Blood Gas Notified Time 02/27/2017 8:10:23 AM Test 02/27/17 09:46 02/27/17 09:50 Sodium Level 130 L Potassium Level 5.3 H Chloride Level 97 Carbon Dioxide Level 21 Anion Gap 17 H Blood Urea Nitrogen 49 H Creatinine 1.54 H Glucose Level 71 Calcium Level 8.3 L Phosphorus Level 4.7 Magnesium Level 2.0 White Blood Count 13.4 H Red Blood Count 1.11 #L Hemoglobin 8.4 #L Hematocrit 11.6 #L Mean Corpuscular Volume 104.5 H Mean Corpuscular Hemoglobin 75.7 #H Mean Corpuscular Hemoglobin Concent 72.4 #H Red Cell Distribution Width Platelet Count 75 L Mean Platelet Volume 13.4 H Neutrophils % 63.4 Lymphocytes % 31.7 Monocytes % 2.0 Eosinophils % 1.6 Basophils % 0.3 Nucleated Red Blood Cells % 0.0 Neutrophils # 8.5 H Lymphocytes # 4.3 H Monocytes # 0.3 Eosinophils # 0.2 Basophils # 0.0 Nucleated Red Blood Cells # 0.0 Prothrombin Time 16.1 H Prothrombin Time Ratio 1.3 INR International Normalized Ratio 1.28 Activated Partial Thromboplast Time 55.4 H Thrombin Time 17.9 Fibrinogen 239.0 Plasma Fibrin Degradation Products >10 and <40 H D-Dimer > 36389.00 H Medications Medications Current Medications Ondansetron HCl (Zofran Inj) 4 mg Q6H PRN IV NAUSEA AND/OR VOMITING Last administered on 02/13/17 00:36; Admin Dose 4 MG; Start 02/11/17 at 10:00 Acetaminophen (Tylenol Tab) 650 mg Q6H PRN PO PAIN LEVEL 1-3 OR FEVER Last administered on 02/25/17 19:51; Admin Dose 650 MG; Start 02/11/17 at 10:00 Morphine Sulfate (morphine) 2 mg Q4H PRN IV PAIN LEVEL 7-10 Last administered on 02/24/17 01:00; Admin Dose 2 MG; Start 02/11/17 at 10:00 Docusate Sodium (Colace) 100 mg Q12H PRN PO CONSTIPATION; Start 02/11/17 at 10: 00 Bisacodyl (Dulcolax Supp) 10 mg DAILY PRN [place] CONSTIPATION; Start 02/11/17 at 10 :00 Miscellaneous Information (Pending Santyl Order For Wound Care) This patient prado... PRN PRN XX WOUND CARE; Start 02/11/17 at 19:00 Collagenase (Santyl) 1 applic DAILY TOP Last administered on 02/27/17 09:41; Admin Dose 1 APPLIC; Start 02/12/17 at 13:30 Diphenhydramine HCl 25 mg 25 mg Q6H PRN IV ITCHING Last administered on 03:22; Admin Dose 25 MG; Start 02/12/17 at 14:00 Total Parenteral Nutrition (Tpn) 1,000 ml @ 40 mls/hr Q24H IV Last administered on 02/25/17 18:53; Admin Dose 40 MLS/HR; Start 02/12/17 at 18:00; Status Future Hold Alprazolam 0.25 mg 0.25 mg Q12H PRN PO ANXIETY Last administered on 02/23/17 02:09; Admin Dose 0.25 MG; Start 02/19/17 at 14:00 Norepinephrine 16 mg/Dextrose 500 ml @ 1.87 mls/hr TITRATE IV Last administered on 02/27/17 10:00; Admin Dose 56.25 MLS/HR; Start 02/21/17 at 17: 30 Sodium Chloride (NS) 250 ml @ 250 mls/hr Q1H PRN IV abp below 90 Last administered on 02/21/17 20:08; Admin Dose 250 MLS/HR; Start 02/21/17 at 17:30 Pantoprazole (Protonix Iv) 40 mg DAILY@06 IV Last administered on 02/27/17 06: 15; Admin Dose 40 MG; Start 02/23/17 at 06:00 Midodrine (Proamatine) 5 mg TID PO Last administered on 02/27/17 13:09; Admin Dose 5 MG; Start 02/23/17 at 13:30 Lorazepam (Ativan) 0.5 mg Q8H PRN IV AGITATION/ANXIETY; Start 02/23/17 at 13:30 Miscellaneous Information DAILY XX ; Start 02/25/17 at 09:00 Phenylephrine HCl 40 mg/Dextrose 500 ml @ 75 mls/hr TITRATE IV Last administered on 02/27/17 04:59; Admin Dose 37.5 MLS/HR; Start 02/25/17 at 10:30 Midazolam HCl 50 ml @ 1 mls/hr TITRATE IV Last administered on 02/25/17 22:54 ; Admin Dose 2 MLS/HR; Start 02/25/17 at 10:00 Fentanyl 100 ml @ 2.5 mls/hr TITRATE IV Last administered on 02/25/17 10:43; Admin Dose 2.5 MLS/HR; Start 02/25/17 at 10:00 Meropenem/Sodium Chloride 50 ml @ 100 mls/hr Q12 IVPB Last administered on 10:30; Admin Dose 100 MLS/HR; Start 02/26/17 at 09:00 Caspofungin 50 mg/ Sodium Chloride 250 ml @ 250 mls/hr Q24H IVPB ; Start at 14:30 Vancomycin HCl/ Sodium Chloride (Vancocin/NS) 150 ml @ 75 mls/hr Q24H IVPB Last administered on 02/27/17t 13:09; Admin Dose 75 MLS/HR; Start 02/27/17 at 13 :00 LUIZ SEQUEIRA MD Feb 27, 2017 13:45
--- NOTE | 2017-02-27 14:24 | CONS ---
Date/Time of Note Date/Time of Note DATE: 02/27/17 TIME: 14:22 Consult Date/Type/Reason Admit Date/Time Feb 11, 2017 at 05:28 Initial Consult Date 02/21/17 Type of Consultation: Pulmonary Ordering Provider: BONIFACIO COWART Subjective Intubated on mechanical ventilation with 2 vasopressors. Remains mostly somnolent. According to primary team some difficulty obtaining consent for line exchange. Objective Vital Signs Date Time Temp Pulse Resp B/P Pulse Ox O2 Delivery O2 Flow Rate FiO2 02/27/17 12:00 102 02/27/17 11:45 21 107/59 97 02/27/17 11:00 Mechanical Ventilator 02/27/17 08:05 70 02/27/17 08:00 98.9 Intake and Output 02/26/17 02/26/17 02/27/17 15:00 23:00 07:00 Intake Total 892.50 ml 835.50 ml 856.75 ml Output Total 30 ml 135 ml 225 ml Balance 862.50 ml 700.50 ml 631.75 ml Exam GENERAL: Elderly lady on mechanical ventilation orally intubated. VITAL SIGNS: see below. HEENT: Pupils equal, round, and reactive to light. CARDIAC: S1, S2, 1/6 systolic ejection murmur CHEST: Diminished air entry bilaterally. ABDOMEN: Mildly distended. Bowel sounds present no guarding or rebound EXTREMITIES: No cyanosis, clubbing edema +2 NEUROLOGIC: Generalized weakness Results/Medications Result Diagram: 02/27/17 0950 02/27/17 0946 Results 24 hrs Laboratory Tests Test 02/27/17 05:39 02/27/17 06:13 02/27/17 07:00 02/27/17 09:46 Lactic Acid Level 2.9 *H White Blood Count 11.7 H Red Blood Count 2.40 #L Hemoglobin 6.6 #*L Hematocrit 22.4 #L Mean Corpuscular Volume 93.3 Mean Corpuscular Hemoglobin 27.5 L Mean Corpuscular Hemoglobin Concent 29.5 L Red Cell Distribution Width 20.3 #H Platelet Count 47 L Mean Platelet Volume 12.9 H Neutrophils % Segmented Neutrophils % (Manual) 89 H Band Neutrophils % (Manual) 1 Lymphocytes % Lymphocytes % (Manual) 8 L Monocytes % Eosinophils % Eosinophils % (Manual) 2 Basophils % Nucleated Red Blood Cells % 0.0 Neutrophils # Neutrophils # (Manual) 10.4 H Band Neutrophils # 0.1 Absolute Lymphocytes (Manual) 0.9 Lymphocytes # Monocytes # Eosinophils # Basophils # Nucleated Red Blood Cells # Smudge Cells % 22 H Thrombocytosis 5 H Platelet Estimate DECREASED Polychromasia 3+ Poikilocytosis 3+ Anisocytosis 1+ Microcytosis 1+ Macrocytosis 1+ Prothrombin Time 17.4 H Prothrombin Time Ratio 1.4 INR International Normalized Ratio 1.42 Activated Partial Thromboplast Time 60.9 H Random Vancomycin Level 14.5 Blood Gas Specimen Source Blood arterial Arterial Blood Date Drawn 02/27/2017 7:30:37 AM Arterial Blood pH (Temp corrected) 7.422 Arterial Blood pCO2 (Temp correct) 32.0 L Arterial Blood pO2 (Temp corrected) 89.0 Arterial Blood HCO3 20.4 L Arterial Blood Base Excess -3.3 L Arterial Blood Oxygen Saturation 96.6 Shreyas Test ACCEPTAB Arterial Blood Gas Puncture Site Right Radial Arterial Blood Carboxyhemoglobin 0.3 Arterial Blood Methemoglobin 0.6 Blood Gas A-a O2 Differential 447.8 H Oxyhemoglobin Percent 95.7 Total Hemoglobin 10.4 L Blood Gas Temperature 37.0 Blood Gas Respiration Rate 20.0 Blood Gas Actual Respiration Rate 20 Blood Gas Modality VENT - AC FiO2 80.0 Blood Gas Tidal Volume 500.0 Blood Gas Low PEEP Setting 5.0 Blood Gas Notified Whom JLD Blood Gas Notified Time 02/27/2017 8:10:23 AM Sodium Level 130 L Potassium Level 5.3 H Chloride Level 97 Carbon Dioxide Level 21 Anion Gap 17 H Blood Urea Nitrogen 49 H Creatinine 1.54 H Glucose Level 71 Calcium Level 8.3 L Phosphorus Level 4.7 Magnesium Level 2.0 Test 02/27/17 09:50 White Blood Count 13.4 H Red Blood Count 1.11 #L Hemoglobin 8.4 #L Hematocrit 11.6 #L Mean Corpuscular Volume 104.5 H Mean Corpuscular Hemoglobin 75.7 #H Mean Corpuscular Hemoglobin Concent 72.4 #H Red Cell Distribution Width Platelet Count 75 L Mean Platelet Volume 13.4 H Neutrophils % 63.4 Lymphocytes % 31.7 Monocytes % 2.0 Eosinophils % 1.6 Basophils % 0.3 Nucleated Red Blood Cells % 0.0 Neutrophils # 8.5 H Lymphocytes # 4.3 H Monocytes # 0.3 Eosinophils # 0.2 Basophils # 0.0 Nucleated Red Blood Cells # 0.0 Prothrombin Time 16.1 H Prothrombin Time Ratio 1.3 INR International Normalized Ratio 1.28 Activated Partial Thromboplast Time 55.4 H Thrombin Time 17.9 Fibrinogen 239.0 Plasma Fibrin Degradation Products >10 and <40 H D-Dimer > 80034.00 H Medications Current Medications Ondansetron HCl (Zofran Inj) 4 mg Q6H PRN IV NAUSEA AND/OR VOMITING Last administered on 02/13/17 00:36; Admin Dose 4 MG; Start 02/11/17 at 10:00 Acetaminophen (Tylenol Tab) 650 mg Q6H PRN PO PAIN LEVEL 1-3 OR FEVER Last administered on 02/25/17 19:51; Admin Dose 650 MG; Start 02/11/17 at 10:00 Morphine Sulfate (morphine) 2 mg Q4H PRN IV PAIN LEVEL 7-10 Last administered on 02/24/17 01:00; Admin Dose 2 MG; Start 02/11/17 at 10:00 Docusate Sodium (Colace) 100 mg Q12H PRN PO CONSTIPATION; Start 02/11/17 at 10: 00 Bisacodyl (Dulcolax Supp) 10 mg DAILY PRN [place] CONSTIPATION; Start 02/11/17 at 10 :00 Miscellaneous Information (Pending Santyl Order For Wound Care) This patient prado... PRN PRN XX WOUND CARE; Start 02/11/17 at 19:00 Collagenase (Santyl) 1 applic DAILY TOP Last administered on 02/27/17 09:41; Admin Dose 1 APPLIC; Start 02/12/17 at 13:30 Diphenhydramine HCl 25 mg 25 mg Q6H PRN IV ITCHING Last administered on 03:22; Admin Dose 25 MG; Start 02/12/17 at 14:00 Total Parenteral Nutrition (Tpn) 1,000 ml @ 40 mls/hr Q24H IV Last administered on 02/25/17 18:53; Admin Dose 40 MLS/HR; Start 02/12/17 at 18:00; Status Future Hold Alprazolam 0.25 mg 0.25 mg Q12H PRN PO ANXIETY Last administered on 02/23/17 02:09; Admin Dose 0.25 MG; Start 02/19/17 at 14:00 Norepinephrine 16 mg/Dextrose 500 ml @ 1.87 mls/hr TITRATE IV Last administered on 02/27/17 10:00; Admin Dose 56.25 MLS/HR; Start 02/21/17 at 17: 30 Sodium Chloride (NS) 250 ml @ 250 mls/hr Q1H PRN IV abp below 90 Last administered on 02/21/17 20:08; Admin Dose 250 MLS/HR; Start 02/21/17 at 17:30 Pantoprazole (Protonix Iv) 40 mg DAILY@06 IV Last administered on 02/27/17 06: 15; Admin Dose 40 MG; Start 02/23/17 at 06:00 Midodrine (Proamatine) 5 mg TID PO Last administered on 02/27/17 13:09; Admin Dose 5 MG; Start 02/23/17 at 13:30 Lorazepam (Ativan) 0.5 mg Q8H PRN IV AGITATION/ANXIETY; Start 02/23/17 at 13:30 Miscellaneous Information DAILY XX ; Start 02/25/17 at 09:00 Phenylephrine HCl 40 mg/Dextrose 500 ml @ 75 mls/hr TITRATE IV Last administered on 02/27/17 04:59; Admin Dose 37.5 MLS/HR; Start 02/25/17 at 10:30 Midazolam HCl 50 ml @ 1 mls/hr TITRATE IV Last administered on 02/25/17 22:54 ; Admin Dose 2 MLS/HR; Start 02/25/17 at 10:00 Fentanyl 100 ml @ 2.5 mls/hr TITRATE IV Last administered on 02/25/17 10:43; Admin Dose 2.5 MLS/HR; Start 02/25/17 at 10:00 Meropenem/Sodium Chloride 50 ml @ 100 mls/hr Q12 IVPB Last administered on 10:30; Admin Dose 100 MLS/HR; Start 02/26/17 at 09:00 Caspofungin 50 mg/ Sodium Chloride 250 ml @ 250 mls/hr Q24H IVPB ; Start at 14:30 Vancomycin HCl/ Sodium Chloride (Vancocin/NS) 150 ml @ 75 mls/hr Q24H IVPB Last administered on 02/27/17 13:09; Admin Dose 75 MLS/HR; Start 02/27/17 at 13 :00 Assessment/Plan Chief Complaint/Hosp Course Assessment 1. Recent severe pancreatitis completed by pseudocyst pending drainage. 2. Anemia of unclear etiology currently not stable for EGD given severe hypoxemia, she would require intubation and mechanical ventilation 3. Hypoxemic respiratory failure combination of volume overload and right pleural effusion. Now intubated on mechanical ventilation 4. Septic shock multifactorial likely exacerbated by fungemia possible line infection. 5. Nutrition continues TPN. 6. Tachycardia likely secondary to ongoing abdominal condition. 7. History of thromboembolic disease status post IVC filter Plan 1. Continue mechanical ventilation 2. Continue vasopressor support 3. GI and surgery recommendations 4. Continue DVT and GI prophylaxis 5. Agree with replacing PICC line for central line. Prognosis very poor. Critical care time 40 minutes. Problems: SLAVA MCBRIED MD, [facility] Feb 27, 2017 14:23
[2017-02-27] MEDS: CASPOFUNGIN 50 MG in SOD CHLORIDE 0.9% 250 ML IVPB SCH (15:19)
--- NOTE | 2017-02-27 15:28 | EN ---
Date/Time of Note Date/Time of Note DATE: 02/27/17 TIME: 15:27 Event Note Medicine Medicine Event Note Date of procedure 02/24/2017 Procedure note Endotracheal intubation Indication hypoxemic respiratory failure Description Patient was placed in supine position with neck extended. Her blood pressure EKG and pulse oximetry were continuously monitored. 10 mg of etomidate and 100 mg of succinylcholine were administered. Using a Ray blade 4 laryngoscope vocal cords were visualized which were noted to be normal in appearance and movement. A size 7.5 endotracheal tube was passed through the vocal cords without resistance. This was secured at 24 cm to the lip. CO2 capnometer was immediately positive, there was condensation in the endotracheal tube and patient had equal breath sounds bilaterally. Postintubation chest x-ray and ABG have been requested Patient tolerated the procedure without complication SLAVA MCBRIDE MD, [facility] Feb 27, 2017 15:27
--- NOTE | 2017-02-27 15:38 | RADRPT ---
PROCEDURE: CT Chest without contrast. CLINICAL INDICATION: Right pleural effusion versus pneumonia, CHF, anemia. TECHNIQUE: Multiple contiguous helical CT images of the chest were obtained without the administra tion of intravenous contrast. Coronal and sagittal reformatted images were obtained from the source images. CTDIvol (mGy): 9.80; Total Exam DLP (mGy-cm): 346.21. One or more of the following dose reduction techniques were utilized: - Automated exposure control. - Adjustment of the mA and/or kV according to patient size. - Use of iterative reconstruction technique. COMPARISON: Chest x-ray 02/27/2017. FINDINGS: Limited imaging of the lower neck demonstrates heterogeneity of the thyroid gland. An endotracheal tube is in place and terminates above the kavon. The heart is mildly enlarged. There is no pericardial effusion. There is no mediastinal, hilar or axillary lymphadenopathy. The thoracic aorta is normal in caliber. Atherosclerotic calcification is present. Mitral annular calcification is also observed. The pulmonary arteries are not enlarged. A right upper extremity PICC terminates within the SVC. Moderate bilateral layering pleural effusions are present. Passive atelectasis is seen within the b ilateral lower lobes. Mild patchy nonspecific ground-glass opacification is seen throughout the aer ated portions of the lung. Mild smooth background interstitial thickening is also observed and may reflect mild interstitial edema. The tracheobronchial tree is normal in caliber with mild diffuse b ronchial wall thickening. Limited imaging of the upper abdomen demonstrates an enteric tube within the stomach. A peripancreat ic fluid collection is partially visualized and is smaller in size. An IVC filter is in place. Mild rightward curvature of the thoracic spine is present. Multilevel degenerative disk disease is observed. Bilateral shoulder osteoarthritis is present. Mild diffuse subcutaneous chest wall edema is observed. IMPRESSION: Moderate bilateral layering pleural effusions with passive atelectasis within the lung bases. Mild smooth interstitial thickening with patchy nonspecific ground-glass opacification within the pu lmonary parenchyma, which may reflect mild edema. Partial visualization of a peripancreatic fluid collection, which is smaller in size. RPTAT: HLST .Sarah Sommer MD, MD Date Time Electronically viewed and signed by .Sarah Sommer MD, on 02/27/2017 15:38 .T/
[2017-02-27] MEDS ORDERED: ALBUMIN HUMAN 5% 250 ML IV ONE (16:00)
--- NOTE | 2017-02-27 16:50 | CONS ---
Date/Time of Note Date/Time of Note DATE: 02/27/17 TIME: 16:14 Assessment/Plan Assessment/Plan Chief Complaint/Hosp Course ID PROGRESS NOTE TOTAL ABX DAY # 2 => VANCO IV #2 + MERREM #2 + Cancidas#2 24H INTERVAL SUMMARY * Intubated 02/24=> Indication hypoxemic respiratory failure * Sepsis => (+)Yeast UTI (+)Yeast BCx = Fungemia due to Infected PICC line + UTI * Fevers -02/25 102.+ -> 101.5 => Afebrile x 48H * WBC 13.4; PKT 75 * 02/27/17 CXR: Mild improved aeration of the right lung base. * 02/27/17 CT CXT: IMPRESSION: Moderate bilateral layering pleural effusions with passive atelectasis within the lung bases. Mild smooth interstitial thickening with patchy nonspecific ground-glass opacification within the pulmonary parenchyma, which may reflect mild edema. Partial visualization of a peripancreatic fluid collection, which is smaller in size. GENERAL: Elderly lady on mechanical ventilation orally intubated. VITAL SIGNS: see below. HEENT: Unremarkable ETT-> secure to Vent CARDIAC: S1, S2, 1/6 systolic ejection murmur CHEST: Diminished air entry bilaterally. ABDOMEN: Mildly distended. Bowel sounds present no guarding or rebound EXTREMITIES: No cyanosis, clubbing edema +2 NEUROLOGIC: Generalized weakness ID ASSESSMENT 86 yo F with: 1. Sepsis w/Fevers >102.+ 02/24 &, leukocytosis, tachycardia => Disseminated candidiasis * BCx 02/25 (+) YEAST => Infx PICC line * 02/25/17 YEAST UTI 2. Acute hypoxic respiratory failure=> Intubated 02/24 in setting of sepsis 3. Severe pancreatitis with pseudocyst, currently on TPN. 4. Acute on chronic anemia status post blood product transfusion 5. Urinary retention 6. s/p VRE UTI 02/15/17 7. s/p acute kidney injury 8. Venous thromboembolism with episode of DVT, status post IVC filter. Repeat Doppler negative for DVT (+)MRSA Nares screen (+)MRSA Stool colonization (+)VRE Stool colonization INVASIVES: PICC, ETT, OGT ABX ALLERGY: PCN CURRENT ABX: # => VANCO IV + MERREM + Cancidas ID RECOMMENDATIONS 1. Continue current broad spectrum IV ABX coverage 2. Bactroban to B-Nares MRSA 3. DC PICC due to Fungemia . Problems: Consultation Date/Type/Reason Admit Date/Time Feb 11, 2017 at 05:28 Initial Consult Date 02/21/17 Type of Consultation: ID Referring Provider: BONIFACIO COWART Exam/Review of Systems Vital Signs Vitals Vital Signs Date Time Temp Pulse Resp B/P Pulse Ox O2 Delivery O2 Flow Rate FiO2 02/27/17 15:30 102 24 102/58 98 02/27/17 15:25 70 02/27/17 15:00 Mechanical Ventilator 02/27/17 12:00 98.6 Intake and Output 02/26/17 02/26/17 02/27/17 15:00 23:00 07:00 Intake Total 892.50 ml 835.50 ml 944.00 ml Output Total 30 ml 135 ml 235 ml Balance 862.50 ml 700.50 ml 709.00 ml Results Result Diagram: 02/27/17 0950 02/27/17 0946 Results 24 hrs Laboratory Tests Test 02/27/17 05:39 02/27/17 06:13 02/27/17 07:00 02/27/17 09:46 Lactic Acid Level 2.9 *H White Blood Count 11.7 H Red Blood Count 2.40 #L Hemoglobin 6.6 #*L Hematocrit 22.4 #L Mean Corpuscular Volume 93.3 Mean Corpuscular Hemoglobin 27.5 L Mean Corpuscular Hemoglobin Concent 29.5 L Red Cell Distribution Width 20.3 #H Platelet Count 47 L Mean Platelet Volume 12.9 H Neutrophils % Segmented Neutrophils % (Manual) 89 H Band Neutrophils % (Manual) 1 Lymphocytes % Lymphocytes % (Manual) 8 L Monocytes % Eosinophils % Eosinophils % (Manual) 2 Basophils % Nucleated Red Blood Cells % 0.0 Neutrophils # Neutrophils # (Manual) 10.4 H Band Neutrophils # 0.1 Absolute Lymphocytes (Manual) 0.9 Lymphocytes # Monocytes # Eosinophils # Basophils # Nucleated Red Blood Cells # Smudge Cells % 22 H Thrombocytosis 5 H Platelet Estimate DECREASED Polychromasia 3+ Poikilocytosis 3+ Anisocytosis 1+ Microcytosis 1+ Macrocytosis 1+ Prothrombin Time 17.4 H Prothrombin Time Ratio 1.4 INR International Normalized Ratio 1.42 Activated Partial Thromboplast Time 60.9 H Random Vancomycin Level 14.5 Blood Gas Specimen Source Blood arterial Arterial Blood Date Drawn 02/27/2017 7:30:37 AM Arterial Blood pH (Temp corrected) 7.422 Arterial Blood pCO2 (Temp correct) 32.0 L Arterial Blood pO2 (Temp corrected) 89.0 Arterial Blood HCO3 20.4 L Arterial Blood Base Excess -3.3 L Arterial Blood Oxygen Saturation 96.6 Shreyas Test ACCEPTAB Arterial Blood Gas Puncture Site Right Radial Arterial Blood Carboxyhemoglobin 0.3 Arterial Blood Methemoglobin 0.6 Blood Gas A-a O2 Differential 447.8 H Oxyhemoglobin Percent 95.7 Total Hemoglobin 10.4 L Blood Gas Temperature 37.0 Blood Gas Respiration Rate 20.0 Blood Gas Actual Respiration Rate 20 Blood Gas Modality VENT - AC FiO2 80.0 Blood Gas Tidal Volume 500.0 Blood Gas Low PEEP Setting 5.0 Blood Gas Notified Whom JLD Blood Gas Notified Time 02/27/2017 8:10:23 AM Sodium Level 130 L Potassium Level 5.3 H Chloride Level 97 Carbon Dioxide Level 21 Anion Gap 17 H Blood Urea Nitrogen 49 H Creatinine 1.54 H Glucose Level 71 Calcium Level 8.3 L Phosphorus Level 4.7 Magnesium Level 2.0 Test 02/27/17 09:50 White Blood Count 13.4 H Red Blood Count 1.11 #L Hemoglobin 8.4 #L Hematocrit 11.6 #L Mean Corpuscular Volume 104.5 H Mean Corpuscular Hemoglobin 75.7 #H Mean Corpuscular Hemoglobin Concent 72.4 #H Red Cell Distribution Width Platelet Count 75 L Mean Platelet Volume 13.4 H Neutrophils % 63.4 Lymphocytes % 31.7 Monocytes % 2.0 Eosinophils % 1.6 Basophils % 0.3 Nucleated Red Blood Cells % 0.0 Neutrophils # 8.5 H Lymphocytes # 4.3 H Monocytes # 0.3 Eosinophils # 0.2 Basophils # 0.0 Nucleated Red Blood Cells # 0.0 Prothrombin Time 16.1 H Prothrombin Time Ratio 1.3 INR International Normalized Ratio 1.28 Activated Partial Thromboplast Time 55.4 H Thrombin Time 17.9 Fibrinogen 239.0 Plasma Fibrin Degradation Products >10 and <40 H D-Dimer > 22159.00 H Medications Medications Current Medications Ondansetron HCl (Zofran Inj) 4 mg Q6H PRN IV NAUSEA AND/OR VOMITING Last administered on 02/13/17 00:36; Admin Dose 4 MG; Start 02/11/17 at 10:00 Acetaminophen (Tylenol Tab) 650 mg Q6H PRN PO PAIN LEVEL 1-3 OR FEVER Last administered on 02/25/17 19:51; Admin Dose 650 MG; Start 02/11/17 at 10:00 Morphine Sulfate (morphine) 2 mg Q4H PRN IV PAIN LEVEL 7-10 Last administered on 02/24/17 01:00; Admin Dose 2 MG; Start 02/11/17 at 10:00 Docusate Sodium (Colace) 100 mg Q12H PRN PO CONSTIPATION; Start 02/11/17 at 10: 00 Bisacodyl (Dulcolax Supp) 10 mg DAILY PRN [place] CONSTIPATION; Start 02/11/17 at 10 :00 Miscellaneous Information (Pending Santyl Order For Wound Care) This patient prado... PRN PRN XX WOUND CARE; Start 02/11/17 at 19:00 Collagenase (Santyl) 1 applic DAILY TOP Last administered on 02/27/17 09:41; Admin Dose 1 APPLIC; Start 02/12/17 at 13:30 Diphenhydramine HCl 25 mg 25 mg Q6H PRN IV ITCHING Last administered on 03:22; Admin Dose 25 MG; Start 02/12/17 at 14:00 Total Parenteral Nutrition (Tpn) 1,000 ml @ 40 mls/hr Q24H IV Last administered on 02/25/17 18:53; Admin Dose 40 MLS/HR; Start 02/12/17 at 18:00; Status Future Hold Alprazolam 0.25 mg 0.25 mg Q12H PRN PO ANXIETY Last administered on 02/23/17 02:09; Admin Dose 0.25 MG; Start 02/19/17 at 14:00 Norepinephrine 16 mg/Dextrose 500 ml @ 1.87 mls/hr TITRATE IV Last administered on 02/27/17 10:00; Admin Dose 56.25 MLS/HR; Start 02/21/17 at 17: 30 Sodium Chloride (NS) 250 ml @ 250 mls/hr Q1H PRN IV abp below 90 Last administered on 02/21/17 20:08; Admin Dose 250 MLS/HR; Start 02/21/17 at 17:30 Pantoprazole (Protonix Iv) 40 mg DAILY@06 IV Last administered on 02/27/17 06: 15; Admin Dose 40 MG; Start 02/23/17 at 06:00 Midodrine (Proamatine) 5 mg TID PO Last administered on 02/27/17 13:09; Admin Dose 5 MG; Start 02/23/17 at 13:30 Lorazepam (Ativan) 0.5 mg Q8H PRN IV AGITATION/ANXIETY; Start 02/23/17 at 13:30 Miscellaneous Information DAILY XX ; Start 02/25/17 at 09:00 Phenylephrine HCl 40 mg/Dextrose 500 ml @ 75 mls/hr TITRATE IV Last administered on 02/27/17 04:59; Admin Dose 37.5 MLS/HR; Start 02/25/17 at 10:30 Midazolam HCl 50 ml @ 1 mls/hr TITRATE IV Last administered on 02/25/17 22:54 ; Admin Dose 2 MLS/HR; Start 02/25/17 at 10:00 Fentanyl 100 ml @ 2.5 mls/hr TITRATE IV Last administered on 02/25/17 10:43; Admin Dose 2.5 MLS/HR; Start 02/25/17 at 10:00 Meropenem/Sodium Chloride 50 ml @ 100 mls/hr Q12 IVPB Last administered on 10:30; Admin Dose 100 MLS/HR; Start 02/26/17 at 09:00 Caspofungin 50 mg/ Sodium Chloride 250 ml @ 250 mls/hr Q24H IVPB Last administered on 02/27/17 15:19; Admin Dose 250 MLS/HR; Start 02/27/17 at 14:30 Vancomycin HCl 750 mg/Sodium Chloride 150 ml @ 75 mls/hr Q24H IVPB Last administered on 02/27/17 13:09; Admin Dose 75 MLS/HR; Start 02/27/17 at 13:00 Albumin Human 250 ml @ 250 mls/hr ONCE ONCE IV ; Start 02/27/17 at 16:00; Stop 02/27/17 at 16:59 DEBORA WILLOUGHBY NP Feb 27, 2017 16:24
--- NOTE | 2017-02-27 17:21 | PN ---
Date/Time of Note Date/Time of Note DATE: 02/27/17 TIME: 17:18 Assessment/Plan VTE Prophylaxis VTE Prophylaxis Intervention: contraindicated VTE Contraindication Reason: bleeding Lines/Catheters IV Catheter Type (from Nrs): PICC Line Central line still needed: Yes Urinary Cath still in place: Yes Reason Cath still needed: urinary retention Assessment/Plan Assessment/Plan Assessment/Plan * Sepsis * Acute respiratory failure management c/o pulmonary * Anemia hemoglobin * Refused EGD * Pancreatitis with Pancreatic pseudocyst/awaiting drainage * Coagulopathy * H/O tube cholecystostomy * H/O ERCP removal of stone with biliary stent * Plan * Continue present regimen * monitor hemoglobin and hematocrit daily and transfuse per protocol * further orders will depend on clinical course * case discussed with DR Hill Subjective 24 Hr Interval Summary Free Text/Dictation * Course reviewed * No untoward events overnight * latest hemoglobin 8.4 Exam/Review of Systems Vital Signs Vitals Vital Signs Date Time Temp Pulse Resp B/P Pulse Ox O2 Delivery O2 Flow Rate FiO2 02/27/17 16:30 95 20 101/53 97 02/27/17 16:00 98.6 Mechanical Ventilator 02/27/17 15:25 70 Intake and Output 02/26/17 02/26/17 02/27/17 15:00 23:00 07:00 Intake Total 892.50 ml 835.50 ml 944.00 ml Output Total 30 ml 135 ml 235 ml Balance 862.50 ml 700.50 ml 709.00 ml Exam Constitutional: frail ENMT: intubated Respiratory: crackles/rales, diminished breath sounds Cardiovascular: nl pulses, regular rate and rhythm Gastrointestinal: distended, non-tender, soft Musculoskeletal: muscle weakness, swelling Extremities: pitting pedal edema Neurological: other (sedated) Skin: other, rash or lesions Results Result Diagram: 02/27/17 0950 02/27/17 0946 Results 24 hrs Laboratory Tests Test 02/27/17 05:39 02/27/17 06:13 02/27/17 07:00 02/27/17 09:46 Lactic Acid Level 2.9 *H White Blood Count 11.7 H Red Blood Count 2.40 #L Hemoglobin 6.6 #*L Hematocrit 22.4 #L Mean Corpuscular Volume 93.3 Mean Corpuscular Hemoglobin 27.5 L Mean Corpuscular Hemoglobin Concent 29.5 L Red Cell Distribution Width 20.3 #H Platelet Count 47 L Mean Platelet Volume 12.9 H Neutrophils % Segmented Neutrophils % (Manual) 89 H Band Neutrophils % (Manual) 1 Lymphocytes % Lymphocytes % (Manual) 8 L Monocytes % Eosinophils % Eosinophils % (Manual) 2 Basophils % Nucleated Red Blood Cells % 0.0 Neutrophils # Neutrophils # (Manual) 10.4 H Band Neutrophils # 0.1 Absolute Lymphocytes (Manual) 0.9 Lymphocytes # Monocytes # Eosinophils # Basophils # Nucleated Red Blood Cells # Smudge Cells % 22 H Thrombocytosis 5 H Platelet Estimate DECREASED Polychromasia 3+ Poikilocytosis 3+ Anisocytosis 1+ Microcytosis 1+ Macrocytosis 1+ Prothrombin Time 17.4 H Prothrombin Time Ratio 1.4 INR International Normalized Ratio 1.42 Activated Partial Thromboplast Time 60.9 H Random Vancomycin Level 14.5 Blood Gas Specimen Source Blood arterial Arterial Blood Date Drawn 02/27/2017 7:30:37 AM Arterial Blood pH (Temp corrected) 7.422 Arterial Blood pCO2 (Temp correct) 32.0 L Arterial Blood pO2 (Temp corrected) 89.0 Arterial Blood HCO3 20.4 L Arterial Blood Base Excess -3.3 L Arterial Blood Oxygen Saturation 96.6 Shreyas Test ACCEPTAB Arterial Blood Gas Puncture Site Right Radial Arterial Blood Carboxyhemoglobin 0.3 Arterial Blood Methemoglobin 0.6 Blood Gas A-a O2 Differential 447.8 H Oxyhemoglobin Percent 95.7 Total Hemoglobin 10.4 L Blood Gas Temperature 37.0 Blood Gas Respiration Rate 20.0 Blood Gas Actual Respiration Rate 20 Blood Gas Modality VENT - AC FiO2 80.0 Blood Gas Tidal Volume 500.0 Blood Gas Low PEEP Setting 5.0 Blood Gas Notified Whom JLD Blood Gas Notified Time 02/27/2017 8:10:23 AM Sodium Level 130 L Potassium Level 5.3 H Chloride Level 97 Carbon Dioxide Level 21 Anion Gap 17 H Blood Urea Nitrogen 49 H Creatinine 1.54 H Glucose Level 71 Calcium Level 8.3 L Phosphorus Level 4.7 Magnesium Level 2.0 Test 02/27/17 09:50 White Blood Count 13.4 H Red Blood Count 1.11 #L Hemoglobin 8.4 #L Hematocrit 11.6 #L Mean Corpuscular Volume 104.5 H Mean Corpuscular Hemoglobin 75.7 #H Mean Corpuscular Hemoglobin Concent 72.4 #H Red Cell Distribution Width Platelet Count 75 L Mean Platelet Volume 13.4 H Neutrophils % 63.4 Lymphocytes % 31.7 Monocytes % 2.0 Eosinophils % 1.6 Basophils % 0.3 Nucleated Red Blood Cells % 0.0 Neutrophils # 8.5 H Lymphocytes # 4.3 H Monocytes # 0.3 Eosinophils # 0.2 Basophils # 0.0 Nucleated Red Blood Cells # 0.0 Prothrombin Time 16.1 H Prothrombin Time Ratio 1.3 INR International Normalized Ratio 1.28 Activated Partial Thromboplast Time 55.4 H Thrombin Time 17.9 Fibrinogen 239.0 Plasma Fibrin Degradation Products >10 and <40 H D-Dimer > 00943.00 H Medications Medications Current Medications Ondansetron HCl (Zofran Inj) 4 mg Q6H PRN IV NAUSEA AND/OR VOMITING Last administered on 02/13/17 00:36; Admin Dose 4 MG; Start 02/11/17 at 10:00 Acetaminophen (Tylenol Tab) 650 mg Q6H PRN PO PAIN LEVEL 1-3 OR FEVER Last administered on 02/25/17 19:51; Admin Dose 650 MG; Start 02/11/17 at 10:00 Morphine Sulfate (morphine) 2 mg Q4H PRN IV PAIN LEVEL 7-10 Last administered on 02/24/17 01:00; Admin Dose 2 MG; Start 02/11/17 at 10:00 Docusate Sodium (Colace) 100 mg Q12H PRN PO CONSTIPATION; Start 02/11/17 at 10: 00 Bisacodyl (Dulcolax Supp) 10 mg DAILY PRN HI CONSTIPATION; Start 02/11/17 at 10 :00 Miscellaneous Information (Pending Santyl Order For Wound Care) This patient prado... PRN PRN XX WOUND CARE; Start 02/11/17 at 19:00 Collagenase (Santyl) 1 applic DAILY TOP Last administered on 02/27/17 09:41; Admin Dose 1 APPLIC; Start 02/12/17 at 13:30 Diphenhydramine HCl 25 mg 25 mg Q6H PRN IV ITCHING Last administered on 03:22; Admin Dose 25 MG; Start 02/12/17 at 14:00 Total Parenteral Nutrition (Tpn) 1,000 ml @ 40 mls/hr Q24H IV Last administered on 02/25/17 18:53; Admin Dose 40 MLS/HR; Start 02/12/17 at 18:00; Status Future Hold Alprazolam 0.25 mg 0.25 mg Q12H PRN PO ANXIETY Last administered on 02/23/17 02:09; Admin Dose 0.25 MG; Start 02/19/17 at 14:00 Norepinephrine 16 mg/Dextrose 500 ml @ 1.87 mls/hr TITRATE IV Last administered on 02/27/17 10:00; Admin Dose 56.25 MLS/HR; Start 02/21/17 at 17: 30 Sodium Chloride (NS) 250 ml @ 250 mls/hr Q1H PRN IV abp below 90 Last administered on 02/21/17 20:08; Admin Dose 250 MLS/HR; Start 02/21/17 at 17:30 Pantoprazole (Protonix Iv) 40 mg DAILY@06 IV Last administered on 02/27/17 06: 15; Admin Dose 40 MG; Start 02/23/17 at 06:00 Midodrine (Proamatine) 5 mg TID PO Last administered on 02/27/17 13:09; Admin Dose 5 MG; Start 02/23/17 at 13:30 Lorazepam (Ativan) 0.5 mg Q8H PRN IV AGITATION/ANXIETY; Start 02/23/17 at 13:30 Miscellaneous Information DAILY XX ; Start 02/25/17 at 09:00 Phenylephrine HCl 40 mg/Dextrose 500 ml @ 75 mls/hr TITRATE IV Last administered on 02/27/17 04:59; Admin Dose 37.5 MLS/HR; Start 02/25/17 at 10:30 Midazolam HCl 50 ml @ 1 mls/hr TITRATE IV Last administered on 02/25/17 22:54 ; Admin Dose 2 MLS/HR; Start 02/25/17 at 10:00 Fentanyl 100 ml @ 2.5 mls/hr TITRATE IV Last administered on 02/25/17 10:43; Admin Dose 2.5 MLS/HR; Start 02/25/17 at 10:00 Meropenem/Sodium Chloride 50 ml @ 100 mls/hr Q12 IVPB Last administered on 10:30; Admin Dose 100 MLS/HR; Start 02/26/17 at 09:00 Caspofungin 50 mg/ Sodium Chloride 250 ml @ 250 mls/hr Q24H IVPB Last administered on 02/27/17 15:19; Admin Dose 250 MLS/HR; Start 02/27/17 at 14:30 Vancomycin HCl/ Sodium Chloride (Vancocin/NS) 150 ml @ 75 mls/hr Q24H IVPB Last administered on 02/27/17 13:09; Admin Dose 75 MLS/HR; Start 02/27/17 at 13 :00 Mupirocin (Bactroban) 1 applic BID TOP ; Start 02/27/17 at 21:00 LUZMARIA SPAIN NP Feb 27, 2017 17:21
[2017-02-27] MEDS ORDERED: MUPIROCIN 2% 22 GM OINT TOP SCH (21:00)
[2017-02-28] VITALS (102 sets, daily range): BP systolic 80–116; BP diastolic 44–77; PULSE 87–111; RESP 16–29
[2017-02-28] MEDS: PHENYLephrine 40 MG in DEXTROSE 5% 496 ML IV SCH (04:24)
[2017-02-28] MEDS: PANTOPRAZOLE 40 MG INJ IV SCH (05:21)
[2017-02-28 07:46] LABS: ABNORMAL IP MESSAGE 1; HEMATOCRIT 22.6 % (37.0-47.0); HEMOGLOBIN 7.6 g/dl (12.0-16.0); MEAN CORPUSCULAR HEMOGLOBIN 28.6 pg (29.0-33.0); MEAN CORPUSCULAR HGB CONC 33.6 g/dl (32.0-37.0); PLATELET COUNT 92 10^3/UL (140-415); RED BLOOD COUNT 2.66 10^6/ul (4.20-5.40); RED CELL DISTRIBUTION WIDTH 19.1 % (11.5-14.5); WHITE BLOOD COUNT 12.1 10^3/ul (4.8-10.8)
[2017-02-28 07:50] LABS: POSITIVE DIFF @See below
[2017-02-28] MEDS: ALBUTEROL 18 GM INHALER INH SCH ×3 (07:56→23:00)
[2017-02-28] MEDS: IPRATROPIUM (HFA) 12.9 GM INHALER INH SCH ×3 (07:56→23:00)
[2017-02-28 08:06] LABS: AADO2 Arterial 328.6 mmHg (7.0-24.0); Allen Test ACCEPTAB; Arterial Base Excess -2.7 mmol/L (-3.0-3); Arterial COHb 0.3 % (0.0-3.0); Arterial Fraction of Oxyhgb 96.2 % (93.0-99.0); Arterial HCO3 20.6 mmol/L (22.0-26.0); Arterial MetHb 0.7 % (0.0-1.5); MODE VENT - AC
--- NOTE | 2017-02-28 08:15 | PN ---
Date/Time of Note Date/Time of Note DATE: 02/28/17 TIME: 08:01 Assessment/Plan VTE Prophylaxis VTE Prophylaxis Intervention: SCD's VTE Contraindication Reason: bleeding, thrombocytopenia Lines/Catheters IV Catheter Type (from Nrs): Central Line Central line still needed: Yes Urinary Cath still in place: Yes Reason Cath still needed: urinary retention, terminal illness/intractable pain Assessment/Plan Assessment/Plan 1. Acute Respiratory failure: worsening, despite decrease in pleural effusions on recent CT scan. She still has atelectasis, severe anemia and poor overall clinical status. Patient in ICU on mechanical ventilation due to deteriorating respiratory status and pressors. Levophed is at maximum doses and norepi has been restarted. On Vanco along with Meropenem. On mechanical ventilation, patient in the volume overload however even her hemodynamics, decreased UOP. CT chest unable to be done because of hemodynamic instability 2. Sepsis and likely septic shock with recurrent fever this AM with ongoing bacteremia/fungemia secondary to PICC line; blood cultures resent and previous set positive for yeast; she has been on Diflucan throughout her admission and at discharge from [facility], she was switched to Cancidas on 02/27. PICC line needs to be changed, ideally it should be removed and replaced in the next 2-3 days however we do need IV access for her pressors, sedating agent. Therefore after discussion with infectious disease the plan is to remove the PICC line from one extremity and place a central line which the son did agree with yesterday as he refused the PICC line placement. On 02/27/2017, Dr. Loja had a lengthy discussion with the patient's son and he is also refusing again the PICC line and the central line placement. Patient still have the same PICC line. Continue Cancidas Dr. Murphy from infectious diseases following. Patient is currently intubated, she is on Versed and fentanyl for sedation and on Levophed and Eric-Synephrine for blood pressure support. 3. S/p Severe pancreatitis with pseudocyst: TPN may be needed as the ED is 1 of the risk factors for fungemia and unfortunately the patient currently does have fungemia. CAT scan of the abdomen and pelvis has been compared to the one done at [facility] approximately 3 weeks ago, cholecystostomy tube has been removed however there is concern as the patient has a new fluid collection in addition of the previous pseudocyst also previous pseudocyst seems to have increased in size and there is concern for possible infection. Still waiting for drainage of 2nd cyst but INR at 1.4 and patient clinically declined further now intubated and on 2 pressors with ongoing sepsis. Per Surgery note last week, ? bleeding in pseudocyst but patient was not stable to get bleeding scan due to fact she was on BiPAP Continue Meropenem, Vanco has been added based on cultures, now Cancidas also started and patient off Diflucan. 4. Acute on chronic anemia status post blood product transfusion at least twice during this admission, Hb has been stable until today with a drop to 7.6 , this Also despite 1 unit of platelet given her platelets are in the 40s. Will repeat CBC peripherally again to double check and confirm. Patient may be in DIC as well We will transfuse packed red blood cells and additional unit of platelets as needed. Bleeding scan was not done due to respiratory distress and needs for continuous BiPAP, she is not intubated however still having hemodynamic instability GI following. No signs of acute bleeding so far however patient does have positive fecal occult blood. Appreciate GI consult, patient and her son declined EGD prior. Appreciate recommendations of Dr Hannah, may still needs CT guided drainage of 2nd pseudocyst by IR, however patient now with hemodynamic instability and intubated, likely also coagulopathic from a septic state, not a candidate for IR procedure currently. 5. Hypotension: Based on records patient has been actually put on midodrine 5 mg p.o. tid due to ongoing hypotension even at discharge from [facility], Now the patient intubated, and also septic with fungemia on blood cultures yesterday, continue Levophed and Eric-Synephrine for blood pressure support. Continue current antibiotics, appreciate infectious disease assistance 6. Urinary retention, status post acute kidney injury at [facility] , renal function improved, Elder catheter in place. Repeat urine culture from yesterday positive with yeast, patient now on Cancidas and Elder catheter changed 6. Hypernatremia, Nutrition: Seems to be resolved as of yesterday, will have to hold off of TPN. Acute kidney injury noted with mild bump in her creatinine. IV fluids to be continued or started if okay with nephrology. Appreciate nephrology assistance from Dr. Partida 7. Sinus Tachycardia: Secondary to sepsis and critical illness; Per report from [facility] patient has sinus tachycardia. Resolved as patient in less distress currently after intubation and sedation. 8. Venous thromboembolism with episode of DVT, status post IVC filter. Repeat Doppler negative for DVT 9. Mild coagulopathy: PTT wnl, Vitamin K and FFP as needed for INR 1.4 but to be noted patient with VTE, s/p IVC filter . Prophylaxis: Protonix for GI prophylaxis, SCDs and status post IVC filter for DVT prophylaxis Disposition: ICU now, intubated on mechanical ventilation , attempted repeat thoracentesis right pleural effusion with very minimal output. Now with fungemia Patient's prognosis is even worse with findings of fungemia, son updated at length on 02/26/2017; cultures and also recommendation from both internal medicine and infectious disease along with critical care. The son has refused to give consent so far with grim prognosis. She remains full code by her son's request. Subjective 24 Hr Interval Summary Free Text/Dictation Intubated. This AM at 0800, she had a fever to 102.7. Also, UOP has been low. She is on two pressors with a poor prognosis. Subjective hx not possible: pt critical status Exam/Review of Systems Vital Signs Vitals Vital Signs Date Time Temp Pulse Resp B/P Pulse Ox O2 Delivery O2 Flow Rate FiO2 02/28/17 07:00 105 20 90/49 99 Mechanical Ventilator 02/28/17 05:56 65 02/28/17 04:00 98.2 Intake and Output 02/27/17 02/27/17 02/28/17 15:00 23:00 07:00 Intake Total 837.50 ml 1011.25 ml 615.00 ml Output Total 105 ml 200 ml 195 ml Balance 732.50 ml 811.25 ml 420.00 ml Exam Constitutional: non-verbal Head: normocephalic ENMT: nl external ears & nose, other (endotracheal and orogastric tubes in place) Neck: supple Respiratory: clear to auscultation Cardiovascular: other (tachycardic) Gastrointestinal: soft Skin: nl turgor Results Result Diagram: 02/28/17 0555 02/27/17 0946 Results 24 hrs Laboratory Tests Test 02/27/17 09:46 02/27/17 09:50 02/28/17 04:53 02/28/17 05:55 Sodium Level 130 L Potassium Level 5.3 H Chloride Level 97 Carbon Dioxide Level 21 Anion Gap 17 H Blood Urea Nitrogen 49 H Creatinine 1.54 H Glucose Level 71 Calcium Level 8.3 L Phosphorus Level 4.7 Magnesium Level 2.0 White Blood Count 13.4 H 12.1 H Red Blood Count 1.11 #L 2.66 #L Hemoglobin 8.4 #L 7.6 L Hematocrit 11.6 #L 22.6 #L Mean Corpuscular Volume 104.5 H 85.0 Mean Corpuscular Hemoglobin 75.7 #H 28.6 #L Mean Corpuscular Hemoglobin Concent 72.4 #H 33.6 # Red Cell Distribution Width 19.1 H Platelet Count 75 L 92 #L Mean Platelet Volume 13.4 H Neutrophils % 63.4 Lymphocytes % 31.7 Monocytes % 2.0 Eosinophils % 1.6 Basophils % 0.3 Nucleated Red Blood Cells % 0.0 0.0 Neutrophils # 8.5 H Lymphocytes # 4.3 H Monocytes # 0.3 Eosinophils # 0.2 Basophils # 0.0 Nucleated Red Blood Cells # 0.0 Prothrombin Time 16.1 H Prothrombin Time Ratio 1.3 INR International Normalized Ratio 1.28 Activated Partial Thromboplast Time 55.4 H Thrombin Time 17.9 Fibrinogen 239.0 Plasma Fibrin Degradation Products >10 and <40 H D-Dimer > 07246.00 H Lab Scanned Report BLOOD TRANSFUSION Lactic Acid Level 2.2 *H Medications Medications Current Medications Ondansetron HCl (Zofran Inj) 4 mg Q6H PRN IV NAUSEA AND/OR VOMITING Last administered on 02/13/17 00:36; Admin Dose 4 MG; Start 02/11/17 at 10:00 Acetaminophen (Tylenol Tab) 650 mg Q6H PRN PO PAIN LEVEL 1-3 OR FEVER Last administered on 02/25/17 19:51; Admin Dose 650 MG; Start 02/11/17 at 10:00 Morphine Sulfate (morphine) 2 mg Q4H PRN IV PAIN LEVEL 7-10 Last administered on 02/24/17 01:00; Admin Dose 2 MG; Start 02/11/17 at 10:00 Docusate Sodium (Colace) 100 mg Q12H PRN PO CONSTIPATION; Start 02/11/17 at 10: 00 Bisacodyl (Dulcolax Supp) 10 mg DAILY PRN ME CONSTIPATION; Start 02/11/17 at 10 :00 Miscellaneous Information (Pending Santyl Order For Wound Care) This patient prado... PRN PRN XX WOUND CARE; Start 02/11/17 at 19:00 Collagenase (Santyl) 1 applic DAILY TOP Last administered on 02/27/17 09:41; Admin Dose 1 APPLIC; Start 02/12/17 at 13:30 Diphenhydramine HCl 25 mg 25 mg Q6H PRN IV ITCHING Last administered on 03:22; Admin Dose 25 MG; Start 02/12/17 at 14:00 Total Parenteral Nutrition (Tpn) 1,000 ml @ 40 mls/hr Q24H IV Last administered on 02/25/17 18:53; Admin Dose 40 MLS/HR; Start 02/12/17 at 18:00; Status Future Hold Alprazolam 0.25 mg 0.25 mg Q12H PRN PO ANXIETY Last administered on 02/23/17 02:09; Admin Dose 0.25 MG; Start 02/19/17 at 14:00 Norepinephrine 16 mg/Dextrose 500 ml @ 1.87 mls/hr TITRATE IV Last administered on 02/28/17 05:36; Admin Dose 56.25 MLS/HR; Start 02/21/17 at 17: 30 Sodium Chloride (NS) 250 ml @ 250 mls/hr Q1H PRN IV abp below 90 Last administered on 02/21/17 20:08; Admin Dose 250 MLS/HR; Start 02/21/17 at 17:30 Pantoprazole (Protonix Iv) 40 mg DAILY@06 IV Last administered on 02/28/17 05: 21; Admin Dose 40 MG; Start 02/23/17 at 06:00 Midodrine (Proamatine) 5 mg TID PO Last administered on 02/27/17 20:42; Admin Dose 5 MG; Start 02/23/17 at 13:30 Lorazepam (Ativan) 0.5 mg Q8H PRN IV AGITATION/ANXIETY; Start 02/23/17 at 13:30 Miscellaneous Information DAILY XX ; Start 02/25/17 at 09:00 Phenylephrine HCl 40 mg/Dextrose 500 ml @ 75 mls/hr TITRATE IV Last administered on 02/28/17 04:24; Admin Dose 75 MLS/HR; Start 02/25/17 at 10:30 Midazolam HCl 50 ml @ 1 mls/hr TITRATE IV Last administered on 02/25/17 22:54 ; Admin Dose 2 MLS/HR; Start 02/25/17 at 10:00 Fentanyl 100 ml @ 2.5 mls/hr TITRATE IV Last administered on 02/25/17 10:43; Admin Dose 2.5 MLS/HR; Start 02/25/17 at 10:00 Meropenem/Sodium Chloride 50 ml @ 100 mls/hr Q12 IVPB Last administered on 20:42; Admin Dose 100 MLS/HR; Start 02/26/17 at 09:00 Caspofungin 50 mg/ Sodium Chloride 250 ml @ 250 mls/hr Q24H IVPB Last administered on 02/27/17 15:19; Admin Dose 250 MLS/HR; Start 02/27/17 at 14:30 Vancomycin HCl/ Sodium Chloride (Vancocin/NS) 150 ml @ 75 mls/hr Q24H IVPB Last administered on 02/27/17 13:09; Admin Dose 75 MLS/HR; Start 02/27/17 at 13 :00 MARIOLA LU MD Feb 28, 2017 08:14
--- NOTE | 2017-02-28 08:29 | RADRPT ---
PROCEDURE: X-ray Chest. CLINICAL INDICATION: Pneumonia, CHF. TECHNIQUE: Single view chest x-ray. COMPARISON: Exam dated 02/27/2017. FINDINGS: There is a well-positioned ETT tip 1.9 cm above the kavon and an enteric tube that descends below t he GE junction of the field of view. A right sided PICC tip overlies the upper SVC. There are athero sclerotic changes of the aorta. The cardiomediastinal silhouette remains enlarged. Extensive bilate ral alveolar and interstitial disease, retrocardiac opacity, and a layering right effusion are not s ignificantly changed. There is no pneumothorax. There are no acute osseous abnormalities. An IVC f ilter is partially visualized in the upper abdomen. IMPRESSION: 1. Cardiomegaly with similar findings suggestive of severe hydrostatic edema versus multifocal pneu monia. Layering right effusion, also unchanged. 2. Vascular calcifications consistent with atherosclerosis. RPTAT: EE .Pedro Tay MD, MD Date Time Electronically viewed and signed by .Pedro Tay MD, on 02/28/2017 08:29 .P/
--- NOTE | 2017-02-28 08:52 | CONS ---
Date/Time of Note Date/Time of Note DATE: 02/28/17 TIME: 08:49 Assessment/Plan Assessment/Plan Additional Assessment/Plan Ventilator setting; AC of 20, tidal volume 500, PEEP of 5, 65% FiO2. Patient on Levophed at 30 mics per minute, phenylephrine drip at 60 mics per minute. Chest x-ray was reviewed from today which is showing bilateral pulmonary vascular congestion. Endotracheal tube is at an adequate level. Assessment and recommendations; 1. Patient admitted with severe sepsis from pancreatitis with pseudocyst formation causing respiratory failure. 2. Severe persistent hypotension. 3. Thrombocytopenia. 4. Anemia. 5. Renal insufficiency. 6. Ileus. 7. Pneumonia. 8. Patient currently being mildly hyperventilated. Continue current supportive care. Ventilator settings have been adjusted, patient's tidal volume has been decreased to 450 mL, and assist-control rate dropped down to 16. FiO2 weaned down to 55%. Prognosis remains very poor. 35 minutes of critical care time was spent evaluating the patient. Consultation Date/Type/Reason Admit Date/Time Feb 11, 2017 at 05:28 Initial Consult Date 02/20/17 Type of Consultation: Pulmonary/critical care Referring Provider: BONIFACIO COWART 24 HR Interval Summary Free Text/Dictation Patient condition remains extremely critical. Still requiring high-dose combination pressor support for severe hypotension. General exam; elderly woman, unresponsive, orally intubated. Currently in no distress. Exam/Review of Systems Vital Signs Vitals Vital Signs Date Time Temp Pulse Resp B/P Pulse Ox O2 Delivery O2 Flow Rate FiO2 02/28/17 07:00 105 20 90/49 99 Mechanical Ventilator 02/28/17 05:56 65 02/28/17 04:00 98.2 Intake and Output 02/27/17 02/27/17 02/28/17 15:00 23:00 07:00 Intake Total 837.50 ml 1011.25 ml 615.00 ml Output Total 105 ml 200 ml 195 ml Balance 732.50 ml 811.25 ml 420.00 ml Exam HEENT exam; supple neck, patient is edentulous. Has bilateral intraocular lens implants. Orally intubated. No neck masses, no thyromegaly. No neck bruits. Chest exam; diminished but clear breath sound. S1-S2 audible, no murmurs. Regular rhythm. Abdomen exam; soft, bowel sounds are absent. No organomegaly felt. Extremity exam; 1+ edema. ASSISTANT DEPARTMENT MANAGER exam; patient is currently unresponsive. Results Result Diagram: 02/28/17 0555 02/27/17 0946 Results 24 hrs Laboratory Tests Test 02/27/17 09:46 02/27/17 09:50 02/28/17 04:53 02/28/17 05:55 Sodium Level 130 L Potassium Level 5.3 H Chloride Level 97 Carbon Dioxide Level 21 Anion Gap 17 H Blood Urea Nitrogen 49 H Creatinine 1.54 H Glucose Level 71 Calcium Level 8.3 L Phosphorus Level 4.7 Magnesium Level 2.0 White Blood Count 13.4 H 12.1 H Red Blood Count 1.11 #L 2.66 #L Hemoglobin 8.4 #L 7.6 L Hematocrit 11.6 #L 22.6 #L Mean Corpuscular Volume 104.5 H 85.0 Mean Corpuscular Hemoglobin 75.7 #H 28.6 #L Mean Corpuscular Hemoglobin Concent 72.4 #H 33.6 # Red Cell Distribution Width 19.1 H Platelet Count 75 L 92 #L Mean Platelet Volume 13.4 H Neutrophils % 63.4 Lymphocytes % 31.7 Monocytes % 2.0 Eosinophils % 1.6 Basophils % 0.3 Nucleated Red Blood Cells % 0.0 0.0 Neutrophils # 8.5 H Lymphocytes # 4.3 H Monocytes # 0.3 Eosinophils # 0.2 Basophils # 0.0 Nucleated Red Blood Cells # 0.0 Prothrombin Time 16.1 H Prothrombin Time Ratio 1.3 INR International Normalized Ratio 1.28 Activated Partial Thromboplast Time 55.4 H Thrombin Time 17.9 Fibrinogen 239.0 Plasma Fibrin Degradation Products >10 and <40 H D-Dimer > 72671.00 H Lab Scanned Report BLOOD TRANSFUSION Lactic Acid Level 2.2 *H Test 02/28/17 07:00 Blood Gas Specimen Source Blood arterial Arterial Blood Date Drawn 02/28/2017 7:30:08 AM Arterial Blood pH (Temp corrected) 7.451 H Arterial Blood pCO2 (Temp correct) 30.3 L Arterial Blood pO2 (Temp corrected) 101.9 H Arterial Blood HCO3 20.6 L Arterial Blood Base Excess -2.7 Arterial Blood Oxygen Saturation 97.2 Shreyas Test ACCEPTAB Arterial Blood Gas Puncture Site Right Radial Arterial Blood Carboxyhemoglobin 0.3 Arterial Blood Methemoglobin 0.7 Blood Gas A-a O2 Differential 328.6 H Oxyhemoglobin Percent 96.2 Total Hemoglobin 9.0 L Blood Gas Temperature 37.0 Blood Gas Respiration Rate 20.0 Blood Gas Actual Respiration Rate 20 Blood Gas Modality VENT - AC FiO2 65.0 Blood Gas Tidal Volume 500.0 Blood Gas Low PEEP Setting 5.0 Blood Gas Notified Whom M.DNatalie Blood Gas Notified Time 02/28/2017 8:06:42 AM Medications Medications Current Medications Ondansetron HCl (Zofran Inj) 4 mg Q6H PRN IV NAUSEA AND/OR VOMITING Last administered on 02/13/17 00:36; Admin Dose 4 MG; Start 02/11/17 at 10:00 Acetaminophen (Tylenol Tab) 650 mg Q6H PRN PO PAIN LEVEL 1-3 OR FEVER Last administered on 02/25/17 19:51; Admin Dose 650 MG; Start 02/11/17 at 10:00 Morphine Sulfate (morphine) 2 mg Q4H PRN IV PAIN LEVEL 7-10 Last administered on 02/24/17 01:00; Admin Dose 2 MG; Start 02/11/17 at 10:00 Docusate Sodium (Colace) 100 mg Q12H PRN PO CONSTIPATION; Start 02/11/17 at 10: 00 Bisacodyl (Dulcolax Supp) 10 mg DAILY PRN [place] CONSTIPATION; Start 02/11/17 at 10 :00 Miscellaneous Information (Pending Santyl Order For Wound Care) This patient prado... PRN PRN XX WOUND CARE; Start 02/11/17 at 19:00 Collagenase (Santyl) 1 applic DAILY TOP Last administered on 02/27/17 09:41; Admin Dose 1 APPLIC; Start 02/12/17 at 13:30 Diphenhydramine HCl 25 mg 25 mg Q6H PRN IV ITCHING Last administered on 03:22; Admin Dose 25 MG; Start 02/12/17 at 14:00 Total Parenteral Nutrition (Tpn) 1,000 ml @ 40 mls/hr Q24H IV Last administered on 02/25/17 18:53; Admin Dose 40 MLS/HR; Start 02/12/17 at 18:00; Status Future Hold Alprazolam 0.25 mg 0.25 mg Q12H PRN PO ANXIETY Last administered on 02/23/17 02:09; Admin Dose 0.25 MG; Start 02/19/17 at 14:00 Norepinephrine 16 mg/Dextrose 500 ml @ 1.87 mls/hr TITRATE IV Last administered on 02/28/17 05:36; Admin Dose 56.25 MLS/HR; Start 02/21/17 at 17: 30 Sodium Chloride (NS) 250 ml @ 250 mls/hr Q1H PRN IV abp below 90 Last administered on 02/21/17 20:08; Admin Dose 250 MLS/HR; Start 02/21/17 at 17:30 Pantoprazole (Protonix Iv) 40 mg DAILY@06 IV Last administered on 02/28/17 05: 21; Admin Dose 40 MG; Start 02/23/17 at 06:00 Midodrine (Proamatine) 5 mg TID PO Last administered on 02/27/17 20:42; Admin Dose 5 MG; Start 02/23/17 at 13:30 Lorazepam (Ativan) 0.5 mg Q8H PRN IV AGITATION/ANXIETY; Start 02/23/17 at 13:30 Miscellaneous Information DAILY XX ; Start 02/25/17 at 09:00 Phenylephrine HCl 40 mg/Dextrose 500 ml @ 75 mls/hr TITRATE IV Last administered on 02/28/17 04:24; Admin Dose 75 MLS/HR; Start 02/25/17 at 10:30 Midazolam HCl 50 ml @ 1 mls/hr TITRATE IV Last administered on 02/25/17 22:54 ; Admin Dose 2 MLS/HR; Start 02/25/17 at 10:00 Fentanyl 100 ml @ 2.5 mls/hr TITRATE IV Last administered on 02/25/17 10:43; Admin Dose 2.5 MLS/HR; Start 02/25/17 at 10:00 Meropenem/Sodium Chloride 50 ml @ 100 mls/hr Q12 IVPB Last administered on 20:42; Admin Dose 100 MLS/HR; Start 02/26/17 at 09:00 Caspofungin 50 mg/ Sodium Chloride 250 ml @ 250 mls/hr Q24H IVPB Last administered on 02/27/17 15:19; Admin Dose 250 MLS/HR; Start 02/27/17 at 14:30 Vancomycin HCl/ Sodium Chloride (Vancocin/NS) 150 ml @ 75 mls/hr Q24H IVPB Last administered on 02/27/17t 13:09; Admin Dose 75 MLS/HR; Start 02/27/17 at 13 :00 LISA KOEHLER Feb 28, 2017 08:52
[2017-02-28] MEDS: [UNRECOGNIZED DRUG - REMARK] XX SCH (09:00)
[2017-02-28] MEDS: MEROPENEM 500MG/50 ML (PMX) 50 ML IVPB SCH ×2 (09:08→20:59)
[2017-02-28] MEDS: MIDODRINE 5 MG TAB PO SCH ×3 (09:08→20:59)
[2017-02-28] MEDS: BALSAM PERU/CASTOR OIL 60 GM TUBE TOP SCH (09:08)
[2017-02-28] MEDS: COLLAGENASE 30 GM TUBE TOP SCH (09:08)
[2017-02-28 10:50] LABS: EOSINOPHILS # 0.2 10^3/ul (0.0-0.5); LYMPHOCYTES # 3.3 10^3/ul (0.8-2.9); MONOCYTE # 0.8 10^3/ul (0.3-0.9); NEUTROPHIL # 7.5 10^3/ul (1.6-7.5)
[2017-02-28 11:01] LABS: CALCIUM 7.7 mg/dl (8.4-10.2); PHOSPHORUS 5.3 mg/dl (2.5-4.9); POTASSIUM 5.6 mmol/L (3.5-5.1)
[2017-02-28 11:08] LABS: CREATININE 1.95 mg/dl (0.44-1.00)
[2017-02-28] MEDS ORDERED: NA POLYST SULFON 15 GM/60 ML BTL PO ONE (11:30)
[2017-02-28] MEDS: CASPOFUNGIN 50 MG in SOD CHLORIDE 0.9% 250 ML IVPB SCH (13:49)
[2017-02-28] MEDS: PHENYLephrine 80 MG in DEXTROSE 5% 492 ML IV SCH (14:18)
--- NOTE | 2017-02-28 16:11 | CONS ---
Date/Time of Note Date/Time of Note DATE: 02/28/17 TIME: 16:03 Assessment/Plan Assessment/Plan Chief Complaint/Hosp Course ID PROGRESS NOTE TOTAL ABX DAY # 3 => VANCO IV + MERREM + Cancidas 24H INTERVAL SUMMARY * (+)Fever to 102.7 today - worsening septic shock on 2 pressors with a poor prognosis. * Son is DPA and was recommended by Dr. Cowart and Dr. Mejía to have PICC Line removed due to presence of Fungemia with sepsis, per Dr. Mejía note; son declined new central IV placement preferring to continue with the PICC Line. * Last night, daughter was present and I advised daughter that as long as PICC line remains in place, she will not be able to clear the disseminated fungemia. Explained that I ordered Elder catheter changed; nevertheless, if the PICC line not changed the yeast will not be cleared and puts her at risk for additional dissemination of fungemia to other organs. Cancidas anti-fungal ABX alone is NOT sufficient to treat fungemia without PICC line removal. * Intubated 02/24=> Indication hypoxemic respiratory failure * Sepsis => (+)Yeast UTI (+)Yeast BCx = Fungemia due to Infected PICC line + UTI * Fevers -02/25 102.+ -> 101.5 => Afebrile x 48H * WBC 13.4; PKT 75 * 02/27/17 CXR: Mild improved aeration of the right lung base. * 02/27/17 CT CXT: IMPRESSION: Moderate bilateral layering pleural effusions with passive atelectasis within the lung bases. Mild smooth interstitial thickening with patchy nonspecific ground-glass opacification within the pulmonary parenchyma, which may reflect mild edema. Partial visualization of a peripancreatic fluid collection, which is smaller in size. GENERAL: Elderly lady on mechanical ventilation orally intubated. VITAL SIGNS: see below. HEENT: Unremarkable ETT-> secure to Vent CARDIAC: S1, S2, 1/6 systolic ejection murmur CHEST: Diminished air entry bilaterally. ABDOMEN: Mildly distended. Bowel sounds present no guarding or rebound EXTREMITIES: No cyanosis, clubbing edema +2 NEUROLOGIC: Generalized weakness ID ASSESSMENT 86 yo F with: 1. Sepsis w/Fevers >102.+ 02/24 &, leukocytosis, tachycardia => Disseminated candidiasis * BCx 02/25 (+) YEAST => Infx PICC line * 02/25/17 YEAST UTI 2. Acute hypoxic respiratory failure=> Intubated 02/24 in setting of sepsis 3. Severe pancreatitis with pseudocyst, currently on TPN. 4. Acute on chronic anemia status post blood product transfusion 5. Urinary retention 6. s/p VRE UTI 02/15/17 7. s/p acute kidney injury 8. Venous thromboembolism with episode of DVT, status post IVC filter. Repeat Doppler negative for DVT (+)MRSA Nares screen (+)MRSA Stool colonization (+)VRE Stool colonization INVASIVES: PICC, ETT, OGT ABX ALLERGY: PCN CURRENT ABX: # => VANCO IV + MERREM + Cancidas ID RECOMMENDATIONS 1. Continue current broad spectrum IV ABX coverage 2. Bactroban to B-Nares MRSA 3. DC PICC due to Fungemia -> Son, DPA, declined to have new central line placed w/removal of PICC. * Last night, daughter was present and I advised daughter that as long as PICC line remains in place, she will not be able to clear the disseminated fungemia. Explained that I ordered Elder catheter changed; nevertheless, if the PICC line not changed the yeast will not be cleared and puts her at risk for additional dissemination of fungemia to other organs. Cancidas anti-fungal ABX alone is NOT sufficient to treat fungemia without PICC line removal. . Problems: Consultation Date/Type/Reason Admit Date/Time Feb 11, 2017 at 05:28 Initial Consult Date 02/21/17 Type of Consultation: ID Referring Provider: BONIFACIO COWART Exam/Review of Systems Vital Signs Vitals Vital Signs Date Time Temp Pulse Resp B/P Pulse Ox O2 Delivery O2 Flow Rate FiO2 02/28/17 14:15 95 21 108/65 97 02/28/17 14:00 Mechanical Ventilator 02/28/17 12:00 99.0 02/28/17 11:40 65 Intake and Output 02/27/17 02/27/17 02/28/17 15:00 23:00 07:00 Intake Total 837.50 ml 1011.25 ml 615.00 ml Output Total 105 ml 200 ml 195 ml Balance 732.50 ml 811.25 ml 420.00 ml Results Result Diagram: 02/28/17 0555 02/28/17 0915 Results 24 hrs Laboratory Tests Test 02/28/17 04:53 02/28/17 05:55 02/28/17 07:00 02/28/17 09:15 Lab Scanned Report BLOOD TRANSFUSION White Blood Count 12.1 H Red Blood Count 2.66 #L Hemoglobin 7.6 L Hematocrit 22.6 #L Mean Corpuscular Volume 85.0 Mean Corpuscular Hemoglobin 28.6 #L Mean Corpuscular Hemoglobin Concent 33.6 # Red Cell Distribution Width 19.1 H Platelet Count 92 #L Mean Platelet Volume Neutrophils % 62.0 Lymphocytes % 27.0 Monocytes % 7.0 Eosinophils % 2.0 Basophils % Nucleated Red Blood Cells % 0.0 Neutrophils # 7.5 Band Neutrophils # 7.5 H Lymphocytes # 3.3 H Monocytes # 0.8 Eosinophils # 0.2 Basophils # Nucleated Red Blood Cells # Lactic Acid Level 2.2 *H Blood Gas Specimen Source Blood arterial Arterial Blood Date Drawn 02/28/2017 7:30:08 AM Arterial Blood pH (Temp corrected) 7.451 H Arterial Blood pCO2 (Temp correct) 30.3 L Arterial Blood pO2 (Temp corrected) 101.9 H Arterial Blood HCO3 20.6 L Arterial Blood Base Excess -2.7 Arterial Blood Oxygen Saturation 97.2 Shreyas Test ACCEPTAB Arterial Blood Gas Puncture Site Right Radial Arterial Blood Carboxyhemoglobin 0.3 Arterial Blood Methemoglobin 0.7 Blood Gas A-a O2 Differential 328.6 H Oxyhemoglobin Percent 96.2 Total Hemoglobin 9.0 L Blood Gas Temperature 37.0 Blood Gas Respiration Rate 20.0 Blood Gas Actual Respiration Rate 20 Blood Gas Modality VENT - AC FiO2 65.0 Blood Gas Tidal Volume 500.0 Blood Gas Low PEEP Setting 5.0 Blood Gas Notified Whom M.D. Blood Gas Notified Time 02/28/2017 8:06:42 AM Sodium Level 127 L Potassium Level 5.6 H Chloride Level 95 L Carbon Dioxide Level 22 Anion Gap 16 Blood Urea Nitrogen 52 H Creatinine 1.95 H Glucose Level 67 L Calcium Level 7.7 L Phosphorus Level 5.3 H Magnesium Level 2.0 Test 02/28/17 09:20 Lab Scanned Report REFERENCE LAB Medications Medications Current Medications Ondansetron HCl (Zofran Inj) 4 mg Q6H PRN IV NAUSEA AND/OR VOMITING Last administered on 02/13/17 00:36; Admin Dose 4 MG; Start 02/11/17 at 10:00 Acetaminophen (Tylenol Tab) 650 mg Q6H PRN PO PAIN LEVEL 1-3 OR FEVER Last administered on 02/25/17 19:51; Admin Dose 650 MG; Start 02/11/17 at 10:00 Morphine Sulfate (morphine) 2 mg Q4H PRN IV PAIN LEVEL 7-10 Last administered on 02/24/17 01:00; Admin Dose 2 MG; Start 02/11/17 at 10:00 Docusate Sodium (Colace) 100 mg Q12H PRN PO CONSTIPATION; Start 02/11/17 at 10: 00 Bisacodyl (Dulcolax Supp) 10 mg DAILY PRN OR CONSTIPATION; Start 02/11/17 at 10 :00 Miscellaneous Information (Pending Santyl Order For Wound Care) This patient prado... PRN PRN XX WOUND CARE; Start 02/11/17 at 19:00 Collagenase (Santyl) 1 applic DAILY TOP Last administered on 02/28/17 09:08; Admin Dose 1 APPLIC; Start 02/12/17 at 13:30 Diphenhydramine HCl 25 mg 25 mg Q6H PRN IV ITCHING Last administered on 03:22; Admin Dose 25 MG; Start 02/12/17 at 14:00 Total Parenteral Nutrition (Tpn) 1,000 ml @ 40 mls/hr Q24H IV Last administered on 02/25/17 18:53; Admin Dose 40 MLS/HR; Start 02/12/17 at 18:00; Status Future Hold Alprazolam 0.25 mg 0.25 mg Q12H PRN PO ANXIETY Last administered on 02/23/17 02:09; Admin Dose 0.25 MG; Start 02/19/17 at 14:00 Sodium Chloride (NS) 250 ml @ 250 mls/hr Q1H PRN IV abp below 90 Last administered on 02/21/17 20:08; Admin Dose 250 MLS/HR; Start 02/21/17 at 17:30 Pantoprazole (Protonix Iv) 40 mg DAILY@06 IV Last administered on 02/28/17 05: 21; Admin Dose 40 MG; Start 02/23/17 at 06:00 Midodrine (Proamatine) 5 mg TID PO Last administered on 02/28/17 13:49; Admin Dose 5 MG; Start 02/23/17 at 13:30 Lorazepam (Ativan) 0.5 mg Q8H PRN IV AGITATION/ANXIETY; Start 02/23/17 at 13:30 Miscellaneous Information DAILY XX ; Start 02/25/17 at 09:00 Midazolam HCl 50 ml @ 1 mls/hr TITRATE IV Last administered on 02/25/17 22:54 ; Admin Dose 2 MLS/HR; Start 02/25/17 at 10:00 Fentanyl 100 ml @ 2.5 mls/hr TITRATE IV Last administered on 02/25/17 10:43; Admin Dose 2.5 MLS/HR; Start 02/25/17 at 10:00 Meropenem/Sodium Chloride 50 ml @ 100 mls/hr Q12 IVPB Last administered on 09:08; Admin Dose 100 MLS/HR; Start 02/26/17 at 09:00 Caspofungin 50 mg/ Sodium Chloride 250 ml @ 250 mls/hr Q24H IVPB Last administered on 02/28/17 13:49; Admin Dose 250 MLS/HR; Start 02/27/17 at 14:30 Vancomycin HCl 750 mg/Sodium Chloride 150 ml @ 75 mls/hr Q36H IVPB ; Start at 01:00 Norepinephrine 32 mg/Dextrose 500 ml @ 0 mls/hr TITRATE IV Last administered on 02/28/17 14:14; Admin Dose 28.12 MLS/HR; Start 02/28/17 at 11:30 Phenylephrine HCl/ Dextrose (Eric-Syneph/D5W) 500 ml @ 0 mls/hr TITRATE IV Last administered on 02/28/17 14:18; Admin Dose 7.5 MLS/HR; Start 02/28/17 at 11:30 DEBORA WILLOUGHBY NP Feb 28, 2017 16:11 DEBORA WILLOUGHBY NP Feb 28, 2017 16:11
--- NOTE | 2017-02-28 19:42 | PN ---
Date/Time of Note Date/Time of Note DATE: 02/28/17 TIME: 19:41 Assessment/Plan VTE Prophylaxis VTE Prophylaxis Intervention: other Lines/Catheters IV Catheter Type (from Nrs): Central line still needed: No Urinary Cath still in place: No Assessment/Plan Chief Complaint/Hosp Course Additional Assessment/Plan Respiratory failure Pancreatitis Infected PICC line Patient will be needing a central line However the son has refused a central line placement We will proceed with placement of a central line when son is agreeable Problems: Subjective 24 Hr Interval Summary Cardiovascular: no complaints Gastrointestinal: no complaints Genitourinary: no complaints Musculoskeletal: no complaints Skin: no complaints Exam/Review of Systems Vital Signs Vitals Vital Signs Date Time Temp Pulse Resp B/P Pulse Ox O2 Delivery O2 Flow Rate FiO2 02/28/17 19:15 89 17 97/50 98 02/28/17 19:00 Mechanical Ventilator 02/28/17 17:30 65 02/28/17 16:00 97.1 Intake and Output 02/27/17 02/27/17 02/28/17 15:00 23:00 07:00 Intake Total 837.50 ml 1011.25 ml 615.00 ml Output Total 105 ml 200 ml 195 ml Balance 732.50 ml 811.25 ml 420.00 ml Exam Eyes: No EOMI, No PERRL, No fundi, disc, No icteric, No nl conjunctiva, No nl lids, No nl sclera, No other Neck: non-tender, supple Respiratory: clear to auscultation, normal air movement Cardiovascular: nl pulses, regular rate and rhythm Gastrointestinal: nl liver, spleen, non-tender, soft Results Result Diagram: 02/28/17 0555 02/28/17 0915 Results 24 hrs Laboratory Tests Test 02/28/17 04:53 02/28/17 05:55 02/28/17 07:00 02/28/17 09:15 Lab Scanned Report BLOOD TRANSFUSION White Blood Count 12.1 H Red Blood Count 2.66 #L Hemoglobin 7.6 L Hematocrit 22.6 #L Mean Corpuscular Volume 85.0 Mean Corpuscular Hemoglobin 28.6 #L Mean Corpuscular Hemoglobin Concent 33.6 # Red Cell Distribution Width 19.1 H Platelet Count 92 #L Mean Platelet Volume Neutrophils % 62.0 Lymphocytes % 27.0 Monocytes % 7.0 Eosinophils % 2.0 Basophils % Nucleated Red Blood Cells % 0.0 Neutrophils # 7.5 Band Neutrophils # 7.5 H Lymphocytes # 3.3 H Monocytes # 0.8 Eosinophils # 0.2 Basophils # Nucleated Red Blood Cells # Lactic Acid Level 2.2 *H Blood Gas Specimen Source Blood arterial Arterial Blood Date Drawn 02/28/2017 7:30:08 AM Arterial Blood pH (Temp corrected) 7.451 H Arterial Blood pCO2 (Temp correct) 30.3 L Arterial Blood pO2 (Temp corrected) 101.9 H Arterial Blood HCO3 20.6 L Arterial Blood Base Excess -2.7 Arterial Blood Oxygen Saturation 97.2 Shreyas Test ACCEPTAB Arterial Blood Gas Puncture Site Right Radial Arterial Blood Carboxyhemoglobin 0.3 Arterial Blood Methemoglobin 0.7 Blood Gas A-a O2 Differential 328.6 H Oxyhemoglobin Percent 96.2 Total Hemoglobin 9.0 L Blood Gas Temperature 37.0 Blood Gas Respiration Rate 20.0 Blood Gas Actual Respiration Rate 20 Blood Gas Modality VENT - AC FiO2 65.0 Blood Gas Tidal Volume 500.0 Blood Gas Low PEEP Setting 5.0 Blood Gas Notified Whom M.D. Blood Gas Notified Time 02/28/2017 8:06:42 AM Sodium Level 127 L Potassium Level 5.6 H Chloride Level 95 L Carbon Dioxide Level 22 Anion Gap 16 Blood Urea Nitrogen 52 H Creatinine 1.95 H Glucose Level 67 L Calcium Level 7.7 L Phosphorus Level 5.3 H Magnesium Level 2.0 Test 02/28/17 09:20 02/28/17 11:23 Lab Scanned Report REFERENCE LAB Stool Occult Blood POSITIVE Medications Medications Current Medications Ondansetron HCl (Zofran Inj) 4 mg Q6H PRN IV NAUSEA AND/OR VOMITING Last administered on 02/13/17 00:36; Admin Dose 4 MG; Start 02/11/17 at 10:00 Acetaminophen (Tylenol Tab) 650 mg Q6H PRN PO PAIN LEVEL 1-3 OR FEVER Last administered on 02/25/17 19:51; Admin Dose 650 MG; Start 02/11/17 at 10:00 Morphine Sulfate (morphine) 2 mg Q4H PRN IV PAIN LEVEL 7-10 Last administered on 02/24/17 01:00; Admin Dose 2 MG; Start 02/11/17 at 10:00 Docusate Sodium (Colace) 100 mg Q12H PRN PO CONSTIPATION; Start 02/11/17 at 10: 00 Bisacodyl (Dulcolax Supp) 10 mg DAILY PRN [place] CONSTIPATION; Start 02/11/17 at 10 :00 Miscellaneous Information (Pending Santyl Order For Wound Care) This patient prado... PRN PRN XX WOUND CARE; Start 02/11/17 at 19:00 Collagenase (Santyl) 1 applic DAILY TOP Last administered on 02/28/17 09:08; Admin Dose 1 APPLIC; Start 02/12/17 at 13:30 Diphenhydramine HCl 25 mg 25 mg Q6H PRN IV ITCHING Last administered on 03:22; Admin Dose 25 MG; Start 02/12/17 at 14:00 Total Parenteral Nutrition (Tpn) 1,000 ml @ 40 mls/hr Q24H IV Last administered on 02/25/17 18:53; Admin Dose 40 MLS/HR; Start 02/12/17 at 18:00; Status Future Hold Alprazolam 0.25 mg 0.25 mg Q12H PRN PO ANXIETY Last administered on 02/23/17 02:09; Admin Dose 0.25 MG; Start 02/19/17 at 14:00 Sodium Chloride (NS) 250 ml @ 250 mls/hr Q1H PRN IV abp below 90 Last administered on 02/21/17 20:08; Admin Dose 250 MLS/HR; Start 02/21/17 at 17:30 Pantoprazole (Protonix Iv) 40 mg DAILY@06 IV Last administered on 02/28/17 05: 21; Admin Dose 40 MG; Start 02/23/17 at 06:00 Midodrine (Proamatine) 5 mg TID PO Last administered on 02/28/17 13:49; Admin Dose 5 MG; Start 02/23/17 at 13:30 Lorazepam (Ativan) 0.5 mg Q8H PRN IV AGITATION/ANXIETY; Start 02/23/17 at 13:30 Miscellaneous Information DAILY XX ; Start 02/25/17 at 09:00 Midazolam HCl 50 ml @ 1 mls/hr TITRATE IV Last administered on 02/25/17 22:54 ; Admin Dose 2 MLS/HR; Start 02/25/17 at 10:00 Fentanyl 100 ml @ 2.5 mls/hr TITRATE IV Last administered on 02/25/17 10:43; Admin Dose 2.5 MLS/HR; Start 02/25/17 at 10:00 Meropenem/Sodium Chloride 50 ml @ 100 mls/hr Q12 IVPB Last administered on 09:08; Admin Dose 100 MLS/HR; Start 02/26/17 at 09:00 Caspofungin 50 mg/ Sodium Chloride 250 ml @ 250 mls/hr Q24H IVPB Last administered on 02/28/17 13:49; Admin Dose 250 MLS/HR; Start 02/27/17 at 14:30 Vancomycin HCl 750 mg/Sodium Chloride 150 ml @ 75 mls/hr Q36H IVPB ; Start at 01:00 Norepinephrine 32 mg/Dextrose 500 ml @ 0 mls/hr TITRATE IV Last administered on 02/28/17 14:14; Admin Dose 28.12 MLS/HR; Start 02/28/17 at 11:30 Phenylephrine HCl/ Dextrose (Eric-Syneph/D5W) 500 ml @ 0 mls/hr TITRATE IV Last administered on 02/28/17 14:18; Admin Dose 7.5 MLS/HR; Start 02/28/17 at 11:30 LUIZ SEQUEIRA MD Feb 28, 2017 19:42
[2017-03-01] VITALS (96 sets, daily range): BP systolic 77–124; BP diastolic 36–76; PULSE 78–95; RESP 13–21
[2017-03-01] MEDS ORDERED: VANCOMYCIN 750 MG in SOD CHLORIDE 0.9% 150 ML IVPB SCH (01:00)
[2017-03-01 05:44] LABS: ALBUMIN 1.7 g/dl (3.3-4.9); ALBUMIN/GLOBULIN RATIO 0.44; BILIRUBIN,DIRECT 4.1 mg/dl (0.00-0.20); BILIRUBIN,INDIRECT 0.8 mg/dl (0-1.1); BILIRUBIN,TOTAL 4.9 mg/dl (0.2-1.3); POTASSIUM 4.7 mmol/L (3.5-5.1); TOTAL PROTEIN 5.5 g/dl (6.1-8.1)
[2017-03-01 05:54] LABS: CREATININE 2.05 mg/dl (0.44-1.00)
[2017-03-01] MEDS: PANTOPRAZOLE 40 MG INJ IV SCH (06:55)
[2017-03-01 07:11] LABS: ABNORMAL IP MESSAGE 1; HEMATOCRIT 23.4 % (37.0-47.0); HEMOGLOBIN 7.8 g/dl (12.0-16.0); MEAN CORPUSCULAR HEMOGLOBIN 28.5 pg (29.0-33.0); MEAN CORPUSCULAR HGB CONC 33.3 g/dl (32.0-37.0); MEAN CORPUSCULAR VOLUME 85.4 fl (82.0-101.0); NUCLEATED RED BLOOD CELLS% 0.2 /100WBC (0.0-0.0); PLATELET COUNT 93 10^3/UL (140-415); RED BLOOD COUNT 2.74 10^6/ul (4.20-5.40); RED CELL DISTRIBUTION WIDTH 18.7 % (11.5-14.5); WHITE BLOOD COUNT 10.2 10^3/ul (4.8-10.8)
[2017-03-01 07:12] LABS: POSITIVE DIFF @See below
[2017-03-01] MEDS: ALBUTEROL 18 GM INHALER INH SCH ×3 (07:22→23:32)
[2017-03-01] MEDS: IPRATROPIUM (HFA) 12.9 GM INHALER INH SCH ×3 (07:22→23:32)
[2017-03-01 07:29] LABS: HEMOGLOBIN 7.6 g/dl (12.0-16.0); MEAN CORPUSCULAR VOLUME 87.3 fl (82.0-101.0)
[2017-03-01 07:30] LABS: MEAN CORPUSCULAR HEMOGLOBIN 27.6 pg (29.0-33.0); MEAN CORPUSCULAR HGB CONC 31.7 g/dl (32.0-37.0)
--- NOTE | 2017-03-01 08:59 | CONS ---
Date/Time of Note Date/Time of Note DATE: 03/01/17 TIME: 08:55 Assessment/Plan Assessment/Plan Additional Assessment/Plan Ventilator setting; AC of 16, tidal volume 450, PEEP of 5, 50% FiO2. Patient currently on Levophed at 22 mics per minute. Next Assessment and recommendations; 1. Patient admitted for severe sepsis with a history of recent pancreatitis with pseudocyst formation. 2. Profound hypotension, currently on high-dose Levophed. 3. Anemia. 4. Renal insufficiency. 5. Hyponatremia. 6. Thrombocytopenia. 7. Extremely poor mental status. 8. Mild pulmonary edema. 9. Bilateral pneumonia. Continue current treatment. Prognosis is very poor. 35 minutes of critical care time was spent evaluating the patient. Consultation Date/Type/Reason Admit Date/Time Feb 11, 2017 at 05:28 Initial Consult Date 02/20/17 Type of Consultation: Pulmonary/critical care Referring Provider: BONIFACIO COWART 24 HR Interval Summary Free Text/Dictation Patient condition remains critical. Remains profoundly unresponsive. Remains hypotensive requiring high-dose pressor support. General exam; elderly woman, orally intubated, currently in no distress. Unresponsive. Exam/Review of Systems Vital Signs Vitals Vital Signs Date Time Temp Pulse Resp B/P Pulse Ox O2 Delivery O2 Flow Rate FiO2 03/01/17 08:20 50 03/01/17 08:00 85 16 101/59 99 Mechanical Ventilator 03/01/17 04:00 97.6 Intake and Output 02/28/17 02/28/17 03/01/17 15:00 23:00 07:00 Intake Total 905.62 ml 246.86 ml 294.40 ml Output Total 205 ml 198 ml 219 ml Balance 700.62 ml 48.86 ml 75.40 ml Exam HEENT exam; supple neck, no JVD. No lymphadenopathy. Midline trachea. No thyromegaly. Patient does have multiple carious teeth. Has bilateral intraocular lens implants. Orally intubated. Chest exam; diminished breath sounds bilaterally. No added sound. S1-S2 audible, no murmurs. Regular rhythm. Abdomen exam; soft, mildly distended. Bowel sounds are very sluggish to absent. No organomegaly felt. Extremity exam; 2+ anasarca. 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 Results Result Diagram: 03/01/17 0504 03/01/17 0504 Results 24 hrs Laboratory Tests Test 02/28/17 09:15 02/28/17 09:20 02/28/17 11:23 03/01/17 05:04 Sodium Level 127 L 129 L Potassium Level 5.6 H 4.7 Chloride Level 95 L 94 L Carbon Dioxide Level 22 23 Anion Gap 16 17 H Blood Urea Nitrogen 52 H 54 H Creatinine 1.95 H 2.05 H Glucose Level 67 L 80 Calcium Level 7.7 L 8.0 L Phosphorus Level 5.3 H Magnesium Level 2.0 Lab Scanned Report REFERENCE LAB Stool Occult Blood POSITIVE White Blood Count 10.2 Red Blood Count 2.74 L Hemoglobin 7.8 L Hematocrit 23.4 L Mean Corpuscular Volume 85.4 Mean Corpuscular Hemoglobin 28.5 L Mean Corpuscular Hemoglobin Concent 33.3 Red Cell Distribution Width 18.7 H Platelet Count 93 L Mean Platelet Volume Neutrophils % Lymphocytes % Monocytes % Eosinophils % Basophils % Nucleated Red Blood Cells % 0.2 H Neutrophils # Lymphocytes # Monocytes # Eosinophils # Basophils # Nucleated Red Blood Cells # Total Bilirubin 4.9 H Direct Bilirubin 4.10 H Indirect Bilirubin 0.8 Aspartate Amino Transf (AST/SGOT) 53 H Alanine Aminotransferase (ALT/SGPT) 30 Alkaline Phosphatase 299 H Total Protein 5.5 L Albumin 1.7 L Globulin 3.80 H Albumin/Globulin Ratio 0.44 Medications Medications Current Medications Ondansetron HCl (Zofran Inj) 4 mg Q6H PRN IV NAUSEA AND/OR VOMITING Last administered on 02/13/17 00:36; Admin Dose 4 MG; Start 02/11/17 at 10:00 Acetaminophen (Tylenol Tab) 650 mg Q6H PRN PO PAIN LEVEL 1-3 OR FEVER Last administered on 02/25/17 19:51; Admin Dose 650 MG; Start 02/11/17 at 10:00 Morphine Sulfate (morphine) 2 mg Q4H PRN IV PAIN LEVEL 7-10 Last administered on 02/24/17 01:00; Admin Dose 2 MG; Start 02/11/17 at 10:00 Docusate Sodium (Colace) 100 mg Q12H PRN PO CONSTIPATION; Start 02/11/17 at 10: 00 Bisacodyl (Dulcolax Supp) 10 mg DAILY PRN [place] CONSTIPATION; Start 02/11/17 at 10 :00 Miscellaneous Information (Pending Santyl Order For Wound Care) This patient prado... PRN PRN XX WOUND CARE; Start 02/11/17 at 19:00 Collagenase (Santyl) 1 applic DAILY TOP Last administered on 02/28/17 09:08; Admin Dose 1 APPLIC; Start 02/12/17 at 13:30 Diphenhydramine HCl 25 mg 25 mg Q6H PRN IV ITCHING Last administered on 03:22; Admin Dose 25 MG; Start 02/12/17 at 14:00 Total Parenteral Nutrition (Tpn) 1,000 ml @ 40 mls/hr Q24H IV Last administered on 02/25/17 18:53; Admin Dose 40 MLS/HR; Start 02/12/17 at 18:00; Status Future Hold Alprazolam 0.25 mg 0.25 mg Q12H PRN PO ANXIETY Last administered on 02/23/17 02:09; Admin Dose 0.25 MG; Start 02/19/17 at 14:00 Sodium Chloride (NS) 250 ml @ 250 mls/hr Q1H PRN IV abp below 90 Last administered on 02/21/17 20:08; Admin Dose 250 MLS/HR; Start 02/21/17 at 17:30 Pantoprazole (Protonix Iv) 40 mg DAILY@06 IV Last administered on 03/01/17 06: 55; Admin Dose 40 MG; Start 02/23/17 at 06:00 Midodrine (Proamatine) 5 mg TID PO Last administered on 02/28/17 20:59; Admin Dose 5 MG; Start 02/23/17 at 13:30 Lorazepam (Ativan) 0.5 mg Q8H PRN IV AGITATION/ANXIETY; Start 02/23/17 at 13:30 Miscellaneous Information DAILY XX ; Start 02/25/17 at 09:00 Midazolam HCl 50 ml @ 1 mls/hr TITRATE IV Last administered on 02/25/17 22:54 ; Admin Dose 2 MLS/HR; Start 02/25/17 at 10:00 Fentanyl 100 ml @ 2.5 mls/hr TITRATE IV Last administered on 02/25/17 10:43; Admin Dose 2.5 MLS/HR; Start 02/25/17 at 10:00 Meropenem/Sodium Chloride 50 ml @ 100 mls/hr Q12 IVPB Last administered on 20:59; Admin Dose 100 MLS/HR; Start 02/26/17 at 09:00 Caspofungin 50 mg/ Sodium Chloride 250 ml @ 250 mls/hr Q24H IVPB Last administered on 02/28/17 13:49; Admin Dose 250 MLS/HR; Start 02/27/17 at 14:30 Vancomycin HCl 750 mg/Sodium Chloride 150 ml @ 75 mls/hr Q36H IVPB Last administered on 03/01/17 01:00; Admin Dose 75 MLS/HR; Start 03/01/17 at 01:00 Norepinephrine 32 mg/Dextrose 500 ml @ 0 mls/hr TITRATE IV Last administered on 02/28/17 14:14; Admin Dose 28.12 MLS/HR; Start 02/28/17 at 11:30 Phenylephrine HCl/ Dextrose (Eric-Syneph/D5W) 500 ml @ 0 mls/hr TITRATE IV Last administered on 02/28/17 14:18; Admin Dose 7.5 MLS/HR; Start 02/28/17 at 11:30 LISA KOEHLER Mar 01, 2017 08:59
[2017-03-01] MEDS: [UNRECOGNIZED DRUG - REMARK] XX SCH (09:00)
[2017-03-01] MEDS ORDERED: SOD CHLORIDE 0.9% 500 ML IV ONE (09:30)
[2017-03-01] MEDS: MIDODRINE 5 MG TAB PO SCH ×3 (10:00→21:01)
[2017-03-01] MEDS: COLLAGENASE 30 GM TUBE TOP SCH (10:00)
[2017-03-01] MEDS: MEROPENEM 500MG/50 ML (PMX) 50 ML IVPB SCH ×2 (10:00→21:01)
[2017-03-01] MEDS: BALSAM PERU/CASTOR OIL 60 GM TUBE TOP SCH (10:00)
[2017-03-01 11:59] LABS: ANISOCYTOSIS 3+ (0-0); EOSINOPHILS % (M) 1 % (0-7); GIANT THROMBO% (M) 10 % (0-0); MICROCYTOSIS 1+ (0-0); MONOCYTES % (M) 1 % (0-11); PLATELET ESTIMATE DECREASED; POIKILOCYTOSIS 3+ (0-0); POLYCHROMASIA 1+ (0-0); PROMYELOCYTES #M 0 # (0-0); PROMYELOCYTES % (M) 1 % (0-0); TOXIC GRANULATION 1+ (0-0)
--- NOTE | 2017-03-01 14:02 | PN ---
Date/Time of Note Date/Time of Note DATE: 03/01/17 TIME: 13:52 Assessment/Plan VTE Prophylaxis VTE Prophylaxis Intervention: SCD's Lines/Catheters IV Catheter Type (from [facility]): Peripheral IV Central line still needed: Yes Urinary Cath still in place: Yes Reason Cath still needed: urinary retention, pres ulcer contaminated by urine Assessment/Plan Assessment/Plan 1. Acute Respiratory failure: unchanged. There has been a decrease in pleural effusions on recent CT scan. She still has atelectasis, severe anemia and poor overall clinical status. Patient in ICU on mechanical ventilation due to deteriorating respiratory status and pressors. Levophed is double concentrated to minimize volume/third spacing the patient is receiving. On Vanco along with Meropenem. On mechanical ventilation, patient in the volume overload however even her hemodynamics, decreased UOP of about 30-40 cc/hr. CT chest unable to be done because of hemodynamic instability 2. Sepsis and likely septic shock with recurrent fever yesterday with ongoing bacteremia/fungemia secondary to PICC line; blood cultures resent and previous set positive for yeast; she has been on Diflucan throughout her admission and at discharge from [facility], she was switched to Cancidas on 02/27. PICC line needs to be changed, but son unwilling to do this. On 02/27/2017, Dr. Loja had a lengthy discussion with the patient's son and he is also refusing again the PICC line and the central line placement. Patient still have the same PICC line. Continue Cancidas Dr. Murphy from infectious diseases following. Patient is currently intubated, she is off Versed and fentanyl (since 02/27). 3. S/p Severe pancreatitis with pseudocyst: TPN may be needed as the ED is 1 of the risk factors for fungemia and unfortunately the patient currently does have fungemia. CAT scan of the abdomen and pelvis has been compared to the one done at [facility] approximately 3 weeks ago, cholecystostomy tube has been removed however there is concern as the patient has a new fluid collection in addition of the previous pseudocyst also previous pseudocyst seems to have increased in size and there is concern for possible infection. 4. Acute on chronic anemia status post blood product transfusion at least twice during this admission, Hb has been stable until today with a drop to 7.6 , this Also despite 1 unit of platelet given her platelets are in the 40s. Will repeat CBC peripherally again to double check and confirm. Patient may be in DIC as well We will transfuse packed red blood cells and additional unit of platelets as needed. Bleeding scan was not done due to respiratory distress and needs for continuous BiPAP, she is not intubated however still having hemodynamic instability GI following, and no signs of acute bleeding so far however patient does have positive fecal occult blood. Appreciate GI consult, patient and her son declined EGD prior. Appreciate recommendations of Dr Hannah, may still needs CT guided drainage of 2nd pseudocyst by IR, however patient now with hemodynamic instability and intubated, likely also coagulopathic from a septic state, not a candidate for IR procedure currently. 5. Hypotension: Based on records patient has been actually put on midodrine 5 mg p.o. tid due to ongoing hypotension even at discharge from [place] [facility] [place], Now the patient intubated, and also septic with fungemia on blood cultures yesterday, continue Levophed and Eric-Synephrine for blood pressure support. Continue current antibiotics, appreciate infectious disease assistance 6. Urinary retention, status post acute kidney injury at [facility] , renal function improved, Elder catheter in place. Repeat urine culture from 02/26 positive with yeast, patient now on Cancidas and Elder catheter changed 7. Venous thromboembolism with episode of DVT, status post IVC filter. Repeat Doppler negative for DVT 8. Mild coagulopathy: PTT wnl, Vitamin K and FFP as needed for INR 1.4 but to be noted patient with VTE, s/p IVC filter . Prophylaxis: Protonix for GI prophylaxis, SCDs and status post IVC filter for DVT prophylaxis Disposition: ICU now, intubated on mechanical ventilation , attempted repeat thoracentesis right pleural effusion with very minimal output. Now with fungemia Patient's prognosis is even worse with findings of fungemia, son updated at length on 02/26/2017; cultures and also recommendation from both internal medicine and infectious disease along with critical care. The son has refused to give consent so far with grim prognosis. She remains full code by her son's request. Subjective 24 Hr Interval Summary Free Text/Dictation Remains obtunded. Not arousable to noxious/tactile/verbal stimuli. No other events overnight. As of this afternoon, her condition is basically the same. Exam/Review of Systems Vital Signs Vitals Vital Signs Date Time Temp Pulse Resp B/P Pulse Ox O2 Delivery O2 Flow Rate FiO2 03/01/17 12:00 82 03/01/17 11:45 17 96 03/01/17 11:30 114/54 03/01/17 11:20 50 03/01/17 11:00 Mechanical Ventilator 03/01/17 08:15 97.5 Intake and Output 02/28/17 02/28/17 03/01/17 15:00 23:00 07:00 Intake Total 905.62 ml 246.86 ml 313.10 ml Output Total 205 ml 198 ml 239 ml Balance 700.62 ml 48.86 ml 74.10 ml Exam Constitutional: non-verbal Psych: no complaints Head: normocephalic Eyes: nl conjunctiva ENMT: other (dry mucous membranes) Neck: supple Respiratory: clear to auscultation, crackles/rales, diminished breath sounds Cardiovascular: regular rate and rhythm Gastrointestinal: soft Extremities: edema, pitting pedal edema Results Result Diagram: 03/01/17 0504 03/01/17 0504 Results 24 hrs Laboratory Tests Test 03/01/17 05:04 White Blood Count 10.2 Red Blood Count 2.74 L Hemoglobin 7.8 L Hematocrit 23.4 L Mean Corpuscular Volume 85.4 Mean Corpuscular Hemoglobin 28.5 L Mean Corpuscular Hemoglobin Concent 33.3 Red Cell Distribution Width 18.7 H Platelet Count 93 L Mean Platelet Volume Neutrophils % Segmented Neutrophils % (Manual) 64 Lymphocytes % Lymphocytes % (Manual) 33 Monocytes % Monocytes % (Manual) 1 Eosinophils % Eosinophils % (Manual) 1 Basophils % Promyelocytes % (Manual) 1 H Nucleated Red Blood Cells % 0.2 H Neutrophils # Absolute Lymphocytes (Manual) 3.3 H Lymphocytes # Monocytes # Absolute Monocytes (Manual) 0.1 L Eosinophils # Basophils # Promyelocytes # 0 Nucleated Red Blood Cells # Smudge Cells % 11 H Thrombocytosis 10 H Toxic Granulation 1+ Platelet Estimate DECREASED Polychromasia 1+ Poikilocytosis 3+ Anisocytosis 3+ Microcytosis 1+ Macrocytosis 2+ Sodium Level 129 L Potassium Level 4.7 Chloride Level 94 L Carbon Dioxide Level 23 Anion Gap 17 H Blood Urea Nitrogen 54 H Creatinine 2.05 H Glucose Level 80 Calcium Level 8.0 L Total Bilirubin 4.9 H Direct Bilirubin 4.10 H Indirect Bilirubin 0.8 Aspartate Amino Transf (AST/SGOT) 53 H Alanine Aminotransferase (ALT/SGPT) 30 Alkaline Phosphatase 299 H Total Protein 5.5 L Albumin 1.7 L Globulin 3.80 H Albumin/Globulin Ratio 0.44 Medications Medications Current Medications Ondansetron HCl (Zofran Inj) 4 mg Q6H PRN IV NAUSEA AND/OR VOMITING Last administered on 02/13/17 00:36; Admin Dose 4 MG; Start 02/11/17 at 10:00 Acetaminophen (Tylenol Tab) 650 mg Q6H PRN PO PAIN LEVEL 1-3 OR FEVER Last administered on 02/25/17 19:51; Admin Dose 650 MG; Start 02/11/17 at 10:00 Morphine Sulfate (morphine) 2 mg Q4H PRN IV PAIN LEVEL 7-10 Last administered on 02/24/17 01:00; Admin Dose 2 MG; Start 02/11/17 at 10:00 Docusate Sodium (Colace) 100 mg Q12H PRN PO CONSTIPATION; Start 02/11/17 at 10: 00 Bisacodyl (Dulcolax Supp) 10 mg DAILY PRN [place] CONSTIPATION; Start 02/11/17 at 10 :00 Miscellaneous Information (Pending Santyl Order For Wound Care) This patient prado... PRN PRN XX WOUND CARE; Start 02/11/17 at 19:00 Collagenase (Santyl) 1 applic DAILY TOP Last administered on 03/01/17 10:00; Admin Dose 1 APPLIC; Start 02/12/17 at 13:30 Diphenhydramine HCl 25 mg 25 mg Q6H PRN IV ITCHING Last administered on 03:22; Admin Dose 25 MG; Start 02/12/17 at 14:00 Total Parenteral Nutrition (Tpn) 1,000 ml @ 40 mls/hr Q24H IV Last administered on 02/25/17 18:53; Admin Dose 40 MLS/HR; Start 02/12/17 at 18:00; Status Future Hold Alprazolam 0.25 mg 0.25 mg Q12H PRN PO ANXIETY Last administered on 02/23/17 02:09; Admin Dose 0.25 MG; Start 02/19/17 at 14:00 Sodium Chloride (NS) 250 ml @ 250 mls/hr Q1H PRN IV abp below 90 Last administered on 02/21/17 20:08; Admin Dose 250 MLS/HR; Start 02/21/17 at 17:30 Pantoprazole (Protonix Iv) 40 mg DAILY@06 IV Last administered on 03/01/17 06: 55; Admin Dose 40 MG; Start 02/23/17 at 06:00 Midodrine (Proamatine) 5 mg TID PO Last administered on 03/01/17 10:00; Admin Dose 5 MG; Start 02/23/17 at 13:30 Lorazepam (Ativan) 0.5 mg Q8H PRN IV AGITATION/ANXIETY; Start 02/23/17 at 13:30 Miscellaneous Information DAILY XX ; Start 02/25/17 at 09:00 Midazolam HCl 50 ml @ 1 mls/hr TITRATE IV Last administered on 02/25/17 22:54 ; Admin Dose 2 MLS/HR; Start 02/25/17 at 10:00 Fentanyl 100 ml @ 2.5 mls/hr TITRATE IV Last administered on 02/25/17 10:43; Admin Dose 2.5 MLS/HR; Start 02/25/17 at 10:00 Caspofungin 50 mg/ Sodium Chloride 250 ml @ 250 mls/hr Q24H IVPB Last administered on 02/28/17 13:49; Admin Dose 250 MLS/HR; Start 02/27/17 at 14:30 Norepinephrine 32 mg/Dextrose 500 ml @ 0 mls/hr TITRATE IV Last administered on 03/01/17 11:38; Admin Dose 16.87 MLS/HR; Start 02/28/17 at 11:30 Phenylephrine HCl 80 mg/Dextrose 500 ml @ 0 mls/hr TITRATE IV Last administered on 02/28/17 14:18; Admin Dose 7.5 MLS/HR; Start 02/28/17 at 11:30 Vancomycin HCl 750 mg/Sodium Chloride 150 ml @ 75 mls/hr Q48H IVPB ; Start 03/03 at 01:00 Meropenem/Sodium Chloride (Merrem 500mg/50 ml(Pmx)) 50 ml @ 100 mls/hr Q24H IVPB ; Start 03/01/17 at 21:00 MARIOLA LU MD Mar 01, 2017 14:02
--- NOTE | 2017-03-01 14:45 | PN ---
Date/Time of Note Date/Time of Note DATE: 03/01/17 TIME: 14:43 Assessment/Plan VTE Prophylaxis VTE Prophylaxis Intervention: other Lines/Catheters IV Catheter Type (from Nrsg): Peripheral IV Central line still needed: No Urinary Cath still in place: No Assessment/Plan Chief Complaint/Hosp Course Additional Assessment/Plan Respiratory failure Pancreatitis Infected PICC line Patient will be needing a central line However the son has refused a central line placement We will proceed with placement of a central line when son is agreeable Problems: Subjective 24 Hr Interval Summary Cardiovascular: no complaints Gastrointestinal: no complaints Genitourinary: no complaints Musculoskeletal: no complaints Skin: no complaints Exam/Review of Systems Vital Signs Vitals Vital Signs Date Time Temp Pulse Resp B/P Pulse Ox O2 Delivery O2 Flow Rate FiO2 03/01/17 12:00 82 03/01/17 11:45 17 96 03/01/17 11:30 114/54 03/01/17 11:20 50 03/01/17 11:00 Mechanical Ventilator 03/01/17 08:15 97.5 Intake and Output 02/28/17 02/28/17 03/01/17 15:00 23:00 07:00 Intake Total 905.62 ml 246.86 ml 313.10 ml Output Total 205 ml 198 ml 239 ml Balance 700.62 ml 48.86 ml 74.10 ml Exam ENMT: nl external ears & nose, nl lips & teeth, nl nasal mucosa & septum Neck: non-tender, supple Respiratory: clear to auscultation, normal air movement Cardiovascular: nl pulses, regular rate and rhythm Gastrointestinal: nl liver, spleen, non-tender, soft Results Result Diagram: 03/01/17 0504 03/01/17 0504 Results 24 hrs Laboratory Tests Test 03/01/17 05:04 White Blood Count 10.2 Red Blood Count 2.74 L Hemoglobin 7.8 L Hematocrit 23.4 L Mean Corpuscular Volume 85.4 Mean Corpuscular Hemoglobin 28.5 L Mean Corpuscular Hemoglobin Concent 33.3 Red Cell Distribution Width 18.7 H Platelet Count 93 L Mean Platelet Volume Neutrophils % Segmented Neutrophils % (Manual) 64 Lymphocytes % Lymphocytes % (Manual) 33 Monocytes % Monocytes % (Manual) 1 Eosinophils % Eosinophils % (Manual) 1 Basophils % Promyelocytes % (Manual) 1 H Nucleated Red Blood Cells % 0.2 H Neutrophils # Absolute Lymphocytes (Manual) 3.3 H Lymphocytes # Monocytes # Absolute Monocytes (Manual) 0.1 L Eosinophils # Basophils # Promyelocytes # 0 Nucleated Red Blood Cells # Smudge Cells % 11 H Thrombocytosis 10 H Toxic Granulation 1+ Platelet Estimate DECREASED Polychromasia 1+ Poikilocytosis 3+ Anisocytosis 3+ Microcytosis 1+ Macrocytosis 2+ Sodium Level 129 L Potassium Level 4.7 Chloride Level 94 L Carbon Dioxide Level 23 Anion Gap 17 H Blood Urea Nitrogen 54 H Creatinine 2.05 H Glucose Level 80 Calcium Level 8.0 L Total Bilirubin 4.9 H Direct Bilirubin 4.10 H Indirect Bilirubin 0.8 Aspartate Amino Transf (AST/SGOT) 53 H Alanine Aminotransferase (ALT/SGPT) 30 Alkaline Phosphatase 299 H Total Protein 5.5 L Albumin 1.7 L Globulin 3.80 H Albumin/Globulin Ratio 0.44 Medications Medications Current Medications Ondansetron HCl (Zofran Inj) 4 mg Q6H PRN IV NAUSEA AND/OR VOMITING Last administered on 02/13/17 00:36; Admin Dose 4 MG; Start 02/11/17 at 10:00 Acetaminophen (Tylenol Tab) 650 mg Q6H PRN PO PAIN LEVEL 1-3 OR FEVER Last administered on 02/25/17 19:51; Admin Dose 650 MG; Start 02/11/17 at 10:00 Morphine Sulfate (morphine) 2 mg Q4H PRN IV PAIN LEVEL 7-10 Last administered on 02/24/17 01:00; Admin Dose 2 MG; Start 02/11/17 at 10:00 Docusate Sodium (Colace) 100 mg Q12H PRN PO CONSTIPATION; Start 02/11/17 at 10: 00 Bisacodyl (Dulcolax Supp) 10 mg DAILY PRN [place] CONSTIPATION; Start 02/11/17 at 10 :00 Miscellaneous Information (Pending Santyl Order For Wound Care) This patient prado... PRN PRN XX WOUND CARE; Start 02/11/17 at 19:00 Collagenase (Santyl) 1 applic DAILY TOP Last administered on 03/01/17 10:00; Admin Dose 1 APPLIC; Start 02/12/17 at 13:30 Diphenhydramine HCl 25 mg 25 mg Q6H PRN IV ITCHING Last administered on 03:22; Admin Dose 25 MG; Start 02/12/17 at 14:00 Total Parenteral Nutrition (Tpn) 1,000 ml @ 40 mls/hr Q24H IV Last administered on 02/25/17 18:53; Admin Dose 40 MLS/HR; Start 02/12/17 at 18:00; Status Future Hold Alprazolam 0.25 mg 0.25 mg Q12H PRN PO ANXIETY Last administered on 02/23/17 02:09; Admin Dose 0.25 MG; Start 02/19/17 at 14:00 Sodium Chloride (NS) 250 ml @ 250 mls/hr Q1H PRN IV abp below 90 Last administered on 02/21/17 20:08; Admin Dose 250 MLS/HR; Start 02/21/17 at 17:30 Pantoprazole (Protonix Iv) 40 mg DAILY@06 IV Last administered on 03/01/17 06: 55; Admin Dose 40 MG; Start 02/23/17 at 06:00 Midodrine (Proamatine) 5 mg TID PO Last administered on 03/01/17 10:00; Admin Dose 5 MG; Start 02/23/17 at 13:30 Lorazepam (Ativan) 0.5 mg Q8H PRN IV AGITATION/ANXIETY; Start 02/23/17 at 13:30 Miscellaneous Information DAILY XX ; Start 02/25/17 at 09:00 Midazolam HCl 50 ml @ 1 mls/hr TITRATE IV Last administered on 02/25/17 22:54 ; Admin Dose 2 MLS/HR; Start 02/25/17 at 10:00 Fentanyl 100 ml @ 2.5 mls/hr TITRATE IV Last administered on 02/25/17 10:43; Admin Dose 2.5 MLS/HR; Start 02/25/17 at 10:00 Caspofungin 50 mg/ Sodium Chloride 250 ml @ 250 mls/hr Q24H IVPB Last administered on 02/28/17 13:49; Admin Dose 250 MLS/HR; Start 02/27/17 at 14:30 Norepinephrine 32 mg/Dextrose 500 ml @ 0 mls/hr TITRATE IV Last administered on 03/01/17 11:38; Admin Dose 16.87 MLS/HR; Start 02/28/17 at 11:30 Phenylephrine HCl 80 mg/Dextrose 500 ml @ 0 mls/hr TITRATE IV Last administered on 02/28/17t 14:18; Admin Dose 7.5 MLS/HR; Start 02/28/17 at 11:30 Vancomycin HCl 750 mg/Sodium Chloride 150 ml @ 75 mls/hr Q48H IVPB ; Start 03/03 at 01:00 Meropenem/Sodium Chloride (Merrem 500mg/50 ml(Pmx)) 50 ml @ 100 mls/hr Q24H IVPB ; Start 03/01/17 at 21:00 LUIZ SEQUEIRA MD Mar 01, 2017 14:45
[2017-03-01] MEDS: CASPOFUNGIN 50 MG in SOD CHLORIDE 0.9% 250 ML IVPB SCH (15:24)
--- NOTE | 2017-03-01 17:59 | CONS ---
Date/Time of Note Date/Time of Note DATE: 03/01/17 TIME: 17:49 Assessment/Plan Assessment/Plan Chief Complaint/Hosp Course ID PROGRESS NOTE TOTAL ABX DAY #4 => VANCO IV + MERREM + Cancidas 24H INTERVAL SUMMARY * No fever today yesterday (+)Fever to 102.7 w/worsening septic shock on 2 pressors with a poor prognosis. * WBC down today * Patient condition remains critical. Remains profoundly unresponsive. Remains hypotensive requiring high-dose pressor support. * Elderly woman, orally intubated, currently in no distress. Unresponsive. * Patient still w/infected PICC -> Fungemia; son declined new central line, I' ve discussed the need for change of line with daughter who tells me only son has DPA for decision making. To date, son continues to decline alternative central access which is needed for safe infusion of pressors, ABX, IF fluids. Peripheral IV placement is not option due to need for vesicant drugs, large fluid volume administration. * Intubated 02/24=> Indication hypoxemic respiratory failure * Sepsis => (+)Yeast UTI (+)Yeast BCx = Fungemia due to Infected PICC line + UTI * Fevers -02/25 102.+ -> 101.5 => Afebrile x 48H * WBC 13.4; PKT 75 * 02/27/17 CXR: Mild improved aeration of the right lung base. * 02/27/17 CT CXT: IMPRESSION: Moderate bilateral layering pleural effusions with passive atelectasis within the lung bases. Mild smooth interstitial thickening with patchy nonspecific ground-glass opacification within the pulmonary parenchyma, which may reflect mild edema. Partial visualization of a peripancreatic fluid collection, which is smaller in size. GENERAL: Elderly lady on mechanical ventilation orally intubated. VITAL SIGNS: see below. HEENT: Unremarkable ETT-> secure to Vent CARDIAC: S1, S2, 1/6 systolic ejection murmur CHEST: Diminished air entry bilaterally. ABDOMEN: Mildly distended. Bowel sounds present no guarding or rebound EXTREMITIES: No cyanosis, clubbing edema +2 NEUROLOGIC: Generalized weakness ID ASSESSMENT 86 yo F with: 1. Sepsis w/Fevers >102.+ 02/24 &, leukocytosis, tachycardia => Disseminated candidiasis * BCx 02/25 (+) YEAST => Infx PICC line * 02/25/17 YEAST UTI 2. Acute hypoxic respiratory failure=> Intubated 02/24 in setting of sepsis 3. Severe pancreatitis with pseudocyst, currently on TPN. 4. Acute on chronic anemia status post blood product transfusion 5. Urinary retention 6. s/p VRE UTI 02/15/17 7. s/p acute kidney injury 8. Venous thromboembolism with episode of DVT, status post IVC filter. Repeat Doppler negative for DVT (+)MRSA Nares screen (+)MRSA Stool colonization (+)VRE Stool colonization INVASIVES: PICC, ETT, OGT ABX ALLERGY: PCN CURRENT ABX: # => VANCO IV + MERREM + Cancidas ID RECOMMENDATIONS 1. Continue current broad spectrum IV ABX coverage 2. Continue Cancidas -> recommendation remains in place; place alternative access and change the PICC line. * Patient still w/infected PICC/fungemia. * To date, son has declined placement of alternative central access which is needed for safe infusion of pressors, ABX, IF fluids. * Peripheral IV placement is not option due to need for vesicant drugs, large fluid volume administration. * Per daughter only son has DPA for decision making, daughter advised nature of disseminated fungemia requires change all invasive lines/catheters. Problems: Consultation Date/Type/Reason Admit Date/Time Feb 11, 2017 at 05:28 Initial Consult Date 02/21/17 Type of Consultation: ID Referring Provider: BONIFACIO COWART Exam/Review of Systems Vital Signs Vitals Vital Signs Date Time Temp Pulse Resp B/P Pulse Ox O2 Delivery O2 Flow Rate FiO2 03/01/17 17:45 84 17 99 03/01/17 17:30 113/42 03/01/17 17:00 Mechanical Ventilator 03/01/17 12:00 98.1 03/01/17 11:20 50 Intake and Output 02/28/17 02/28/17 03/01/17 15:00 23:00 07:00 Intake Total 905.62 ml 246.86 ml 313.10 ml Output Total 205 ml 198 ml 239 ml Balance 700.62 ml 48.86 ml 74.10 ml Results Result Diagram: 03/01/17 0504 03/01/17 0504 Results 24 hrs Laboratory Tests Test 03/01/17 05:04 White Blood Count 10.2 Red Blood Count 2.74 L Hemoglobin 7.8 L Hematocrit 23.4 L Mean Corpuscular Volume 85.4 Mean Corpuscular Hemoglobin 28.5 L Mean Corpuscular Hemoglobin Concent 33.3 Red Cell Distribution Width 18.7 H Platelet Count 93 L Mean Platelet Volume Neutrophils % Segmented Neutrophils % (Manual) 64 Lymphocytes % Lymphocytes % (Manual) 33 Monocytes % Monocytes % (Manual) 1 Eosinophils % Eosinophils % (Manual) 1 Basophils % Promyelocytes % (Manual) 1 H Nucleated Red Blood Cells % 0.2 H Neutrophils # Absolute Lymphocytes (Manual) 3.3 H Lymphocytes # Monocytes # Absolute Monocytes (Manual) 0.1 L Eosinophils # Basophils # Promyelocytes # 0 Nucleated Red Blood Cells # Smudge Cells % 11 H Thrombocytosis 10 H Toxic Granulation 1+ Platelet Estimate DECREASED Polychromasia 1+ Poikilocytosis 3+ Anisocytosis 3+ Microcytosis 1+ Macrocytosis 2+ Sodium Level 129 L Potassium Level 4.7 Chloride Level 94 L Carbon Dioxide Level 23 Anion Gap 17 H Blood Urea Nitrogen 54 H Creatinine 2.05 H Glucose Level 80 Calcium Level 8.0 L Total Bilirubin 4.9 H Direct Bilirubin 4.10 H Indirect Bilirubin 0.8 Aspartate Amino Transf (AST/SGOT) 53 H Alanine Aminotransferase (ALT/SGPT) 30 Alkaline Phosphatase 299 H Total Protein 5.5 L Albumin 1.7 L Globulin 3.80 H Albumin/Globulin Ratio 0.44 Medications Medications Current Medications Ondansetron HCl (Zofran Inj) 4 mg Q6H PRN IV NAUSEA AND/OR VOMITING Last administered on 02/13/17 00:36; Admin Dose 4 MG; Start 02/11/17 at 10:00 Acetaminophen (Tylenol Tab) 650 mg Q6H PRN PO PAIN LEVEL 1-3 OR FEVER Last administered on 02/25/17 19:51; Admin Dose 650 MG; Start 02/11/17 at 10:00 Morphine Sulfate (morphine) 2 mg Q4H PRN IV PAIN LEVEL 7-10 Last administered on 02/24/17 01:00; Admin Dose 2 MG; Start 02/11/17 at 10:00 Docusate Sodium (Colace) 100 mg Q12H PRN PO CONSTIPATION; Start 02/11/17 at 10: 00 Bisacodyl (Dulcolax Supp) 10 mg DAILY PRN [place] CONSTIPATION; Start 02/11/17 at 10 :00 Miscellaneous Information (Pending Santyl Order For Wound Care) This patient prado... PRN PRN XX WOUND CARE; Start 02/11/17 at 19:00 Collagenase (Santyl) 1 applic DAILY TOP Last administered on 03/01/17 10:00; Admin Dose 1 APPLIC; Start 02/12/17 at 13:30 Diphenhydramine HCl 25 mg 25 mg Q6H PRN IV ITCHING Last administered on 03:22; Admin Dose 25 MG; Start 02/12/17 at 14:00 Total Parenteral Nutrition (Tpn) 1,000 ml @ 40 mls/hr Q24H IV Last administered on 02/25/17 18:53; Admin Dose 40 MLS/HR; Start 02/12/17 at 18:00; Status Future Hold Alprazolam 0.25 mg 0.25 mg Q12H PRN PO ANXIETY Last administered on 02/23/17 02:09; Admin Dose 0.25 MG; Start 02/19/17 at 14:00 Sodium Chloride (NS) 250 ml @ 250 mls/hr Q1H PRN IV abp below 90 Last administered on 02/21/17 20:08; Admin Dose 250 MLS/HR; Start 02/21/17 at 17:30 Pantoprazole (Protonix Iv) 40 mg DAILY@06 IV Last administered on 03/01/17 06: 55; Admin Dose 40 MG; Start 02/23/17 at 06:00 Midodrine (Proamatine) 5 mg TID PO Last administered on 03/01/17 13:42; Admin Dose 5 MG; Start 02/23/17 at 13:30 Lorazepam (Ativan) 0.5 mg Q8H PRN IV AGITATION/ANXIETY; Start 02/23/17 at 13:30 Miscellaneous Information DAILY XX ; Start 02/25/17 at 09:00 Midazolam HCl 50 ml @ 1 mls/hr TITRATE IV Last administered on 02/25/17 22:54 ; Admin Dose 2 MLS/HR; Start 02/25/17 at 10:00 Fentanyl 100 ml @ 2.5 mls/hr TITRATE IV Last administered on 02/25/17 10:43; Admin Dose 2.5 MLS/HR; Start 02/25/17 at 10:00 Caspofungin 50 mg/ Sodium Chloride 250 ml @ 250 mls/hr Q24H IVPB Last administered on 03/01/17 15:24; Admin Dose 250 MLS/HR; Start 02/27/17 at 14:30 Norepinephrine 32 mg/Dextrose 500 ml @ 0 mls/hr TITRATE IV Last administered on 03/01/17 11:38; Admin Dose 16.87 MLS/HR; Start 02/28/17 at 11:30 Phenylephrine HCl 80 mg/Dextrose 500 ml @ 0 mls/hr TITRATE IV Last administered on 02/28/17 14:18; Admin Dose 7.5 MLS/HR; Start 02/28/17 at 11:30 Vancomycin HCl 750 mg/Sodium Chloride 150 ml @ 75 mls/hr Q48H IVPB ; Start 03/03 at 01:00 Meropenem/Sodium Chloride (Merrem 500mg/50 ml(Pmx)) 50 ml @ 100 mls/hr Q24H IVPB ; Start 03/01/17 at 21:00 DEBORA WILLOUGHBY NP Mar 01, 2017 17:59
[2017-03-02] VITALS (98 sets, daily range): BP systolic 82–115; BP diastolic 43–66; PULSE 75–95; RESP 14–21
--- NOTE | 2017-03-02 05:50 | RADRPT ---
PROCEDURE: XR Chest. CLINICAL INDICATION: Respiratory failure TECHNIQUE: 2 AP views of the chest were obtained COMPARISON: Chest x-ray dated 02/28/2017 FINDINGS: Multiple overlying monitor leads obscure evaluation. The endotracheal tube tip is approximately 3. 4 cm above the kavon. The tip of the enteric tube extends below the left diaphragm. There is a rig ht upper extremity PICC line with tip in the mid SVC There is prominence of the interstitial and central pulmonary vascular markings with small to moder ate bilateral pleural effusions. No focal airspace opacification or pneumothorax is seen. The car diomediastinal silhouette is mildly enlarged . Calcifications are seen within the aortic arch. The osseous structures demonstrate senescent changes. IMPRESSION: 1. Findings suggestive of pulmonary vascular congestion with small to moderate bilateral pleural e ffusions. Lung aeration appears mildly improved when compared to the prior examination. 2. Mild cardiomegaly and aortic atherosclerosis. 3. Tubes and lines, as described above. Multiple overlying monitor leads obscure evaluation. RPTAT: .Kandi Diaz MD, MD Date Time Electronically viewed and signed by .Kandi Diaz MD, on 03/02/2017 05:50 .G/
[2017-03-02] MEDS: PANTOPRAZOLE 40 MG INJ IV SCH (05:56)
[2017-03-02 06:56] LABS: ABNORMAL IP MESSAGE 1; BASOPHILS % 0.4 % (0.0-2.0); EOSINOPHILS # 0.1 10^3/ul (0.0-0.5); EOSINOPHILS % 1.8 % (0.0-7.0); HEMOGLOBIN 7.7 g/dl (12.0-16.0); LYMPHOCYTES # 2.7 10^3/ul (0.8-2.9); LYMPHOCYTES % 35.9 % (15.0-51.0); MEAN CORPUSCULAR HEMOGLOBIN 28.5 pg (29.0-33.0); MEAN CORPUSCULAR HGB CONC 33.5 g/dl (32.0-37.0); MEAN CORPUSCULAR VOLUME 85.2 fl (82.0-101.0); MEAN PLATELET VOLUME 13.8 fl (7.4-10.4); MONOCYTE # 0.4 10^3/ul (0.3-0.9); MONOCYTES % 5.8 % (0.0-11.0); NEUTROPHIL # 4.1 10^3/ul (1.6-7.5); NEUTROPHILS % 54.5 % (39.0-77.0); PLATELET COUNT 96 10^3/UL (140-415); WHITE BLOOD COUNT 7.6 10^3/ul (4.8-10.8)
[2017-03-02 06:57] LABS: POSITIVE DIFF @See below
[2017-03-02 06:58] LABS: ALBUMIN 1.7 g/dl (3.3-4.9); ALBUMIN/GLOBULIN RATIO 0.43; BILIRUBIN,DIRECT 4.3 mg/dl (0.00-0.20); BILIRUBIN,INDIRECT 0.8 mg/dl (0-1.1); BILIRUBIN,TOTAL 5.1 mg/dl (0.2-1.3); CALCIUM 7.5 mg/dl (8.4-10.2); TOTAL PROTEIN 5.6 g/dl (6.1-8.1)
[2017-03-02] MEDS: ALBUTEROL 18 GM INHALER INH SCH ×3 (07:37→23:19)
[2017-03-02] MEDS: IPRATROPIUM (HFA) 12.9 GM INHALER INH SCH ×3 (07:37→23:19)
[2017-03-02 07:39] LABS: CREATININE 1.94 mg/dl (0.44-1.00)
[2017-03-02 07:56] LABS: HYPOCHROMASIA 1+ (0-0)
[2017-03-02] MEDS: [UNRECOGNIZED DRUG - REMARK] XX SCH (09:00)
[2017-03-02] MEDS ORDERED: SOD CHLORIDE 0.9% 1,000 ML IV SCH (09:00)
[2017-03-02] MEDS ORDERED: ALBUMIN HUMAN 25% 100 ML IV ONE (09:00)
[2017-03-02] MEDS: MIDODRINE 5 MG TAB PO SCH ×3 (09:23→20:46)
[2017-03-02] MEDS: BALSAM PERU/CASTOR OIL 60 GM TUBE TOP SCH (09:25)
[2017-03-02] MEDS: COLLAGENASE 30 GM TUBE TOP SCH (09:25)
--- NOTE | 2017-03-02 09:45 | PN ---
Date/Time of Note Date/Time of Note DATE: 03/02/17 TIME: 09:44 Assessment/Plan VTE Prophylaxis VTE Prophylaxis Intervention: other Lines/Catheters IV Catheter Type (from Nrs): Central line still needed: No Urinary Cath still in place: No Assessment/Plan Chief Complaint/Hosp Course Additional Assessment/Plan Respiratory failure Pancreatitis Infected PICC line Patient will be needing a central line However the son has refused a central line placement We will proceed with placement of a central line when son is agreeable Problems: Subjective 24 Hr Interval Summary Cardiovascular: no complaints Gastrointestinal: no complaints Genitourinary: no complaints Musculoskeletal: no complaints Skin: no complaints Exam/Review of Systems Vital Signs Vitals Vital Signs Date Time Temp Pulse Resp B/P Pulse Ox O2 Delivery O2 Flow Rate FiO2 03/02/17 08:00 89 03/02/17 07:45 16 111/57 100 03/02/17 07:00 Mechanical Ventilator 03/02/17 05:05 40 03/02/17 04:00 97.7 Intake and Output 03/01/17 03/01/17 03/02/17 15:00 23:00 07:00 Intake Total 188.61 ml 449.93 ml 108.74 ml Output Total 215 ml 260 ml 245 ml Balance -26.39 ml 189.93 ml -136.26 ml Results Result Diagram: 03/02/17 0500 03/02/17 0500 Results 24 hrs Laboratory Tests Test 03/02/17 05:00 White Blood Count 7.6 # Red Blood Count 2.70 L Hemoglobin 7.7 L Hematocrit 23.0 L Mean Corpuscular Volume 85.2 Mean Corpuscular Hemoglobin 28.5 L Mean Corpuscular Hemoglobin Concent 33.5 Red Cell Distribution Width 19.0 H Platelet Count 96 L Mean Platelet Volume 13.8 H Neutrophils % 54.5 Lymphocytes % 35.9 Monocytes % 5.8 Eosinophils % 1.8 Basophils % 0.4 Nucleated Red Blood Cells % 0.0 Neutrophils # 4.1 Lymphocytes # 2.7 Monocytes # 0.4 Eosinophils # 0.1 Basophils # 0.0 Nucleated Red Blood Cells # 0.0 Hypochromasia 1+ Sodium Level 131 L Potassium Level 5.0 Chloride Level 98 Carbon Dioxide Level 21 Anion Gap 17 H Blood Urea Nitrogen 53 H Creatinine 1.94 H Glucose Level 53 #L Calcium Level 7.5 L Total Bilirubin 5.1 H Direct Bilirubin 4.30 H Indirect Bilirubin 0.8 Aspartate Amino Transf (AST/SGOT) 55 H Alanine Aminotransferase (ALT/SGPT) 30 Alkaline Phosphatase 324 H Total Protein 5.6 L Albumin 1.7 L Globulin 3.90 H Albumin/Globulin Ratio 0.43 Medications Medications Current Medications Ondansetron HCl (Zofran Inj) 4 mg Q6H PRN IV NAUSEA AND/OR VOMITING Last administered on 02/13/17 00:36; Admin Dose 4 MG; Start 02/11/17 at 10:00 Acetaminophen (Tylenol Tab) 650 mg Q6H PRN PO PAIN LEVEL 1-3 OR FEVER Last administered on 02/25/17 19:51; Admin Dose 650 MG; Start 02/11/17 at 10:00 Morphine Sulfate (morphine) 2 mg Q4H PRN IV PAIN LEVEL 7-10 Last administered on 02/24/17 01:00; Admin Dose 2 MG; Start 02/11/17 at 10:00 Docusate Sodium (Colace) 100 mg Q12H PRN PO CONSTIPATION; Start 02/11/17 at 10: 00 Bisacodyl (Dulcolax Supp) 10 mg DAILY PRN [place] CONSTIPATION; Start 02/11/17 at 10 :00 Miscellaneous Information (Pending Santyl Order For Wound Care) This patient prado... PRN PRN XX WOUND CARE; Start 02/11/17 at 19:00 Collagenase (Santyl) 1 applic DAILY TOP Last administered on 03/02/17 09:25; Admin Dose 1 APPLIC; Start 02/12/17 at 13:30 Diphenhydramine HCl 25 mg 25 mg Q6H PRN IV ITCHING Last administered on 03:22; Admin Dose 25 MG; Start 02/12/17 at 14:00 Total Parenteral Nutrition (Tpn) 1,000 ml @ 40 mls/hr Q24H IV Last administered on 02/25/17 18:53; Admin Dose 40 MLS/HR; Start 02/12/17 at 18:00; Status Future Hold Alprazolam 0.25 mg 0.25 mg Q12H PRN PO ANXIETY Last administered on 02/23/17 02:09; Admin Dose 0.25 MG; Start 02/19/17 at 14:00 Sodium Chloride (NS) 250 ml @ 250 mls/hr Q1H PRN IV abp below 90 Last administered on 02/21/17 20:08; Admin Dose 250 MLS/HR; Start 02/21/17 at 17:30 Pantoprazole (Protonix Iv) 40 mg DAILY@06 IV Last administered on 03/02/17 05: 56; Admin Dose 40 MG; Start 02/23/17 at 06:00 Midodrine (Proamatine) 5 mg TID PO Last administered on 03/02/17 09:23; Admin Dose 5 MG; Start 02/23/17 at 13:30 Lorazepam (Ativan) 0.5 mg Q8H PRN IV AGITATION/ANXIETY; Start 02/23/17 at 13:30 Miscellaneous Information DAILY XX ; Start 02/25/17 at 09:00 Midazolam HCl 50 ml @ 1 mls/hr TITRATE IV Last administered on 02/25/17 22:54 ; Admin Dose 2 MLS/HR; Start 02/25/17 at 10:00 Fentanyl 100 ml @ 2.5 mls/hr TITRATE IV Last administered on 02/25/17 10:43; Admin Dose 2.5 MLS/HR; Start 02/25/17 at 10:00 Caspofungin 50 mg/ Sodium Chloride 250 ml @ 250 mls/hr Q24H IVPB Last administered on 03/01/17 15:24; Admin Dose 250 MLS/HR; Start 02/27/17 at 14:30 Norepinephrine 32 mg/Dextrose 500 ml @ 0 mls/hr TITRATE IV Last administered on 03/01/17 11:38; Admin Dose 16.87 MLS/HR; Start 02/28/17 at 11:30 Phenylephrine HCl 80 mg/Dextrose 500 ml @ 0 mls/hr TITRATE IV Last administered on 02/28/17 14:18; Admin Dose 7.5 MLS/HR; Start 02/28/17 at 11:30 Vancomycin HCl 750 mg/Sodium Chloride 150 ml @ 75 mls/hr Q48H IVPB ; Start 03/03 at 01:00 Meropenem/Sodium Chloride 50 ml @ 100 mls/hr Q24H IVPB Last administered on 21:01; Admin Dose 100 MLS/HR; Start 03/01/17 at 21:00 Sodium Chloride 1,000 ml @ 75 mls/hr [id number] IV Last administered on 09:25; Admin Dose 75 MLS/HR; Start 03/02/17 at 09:00 Albumin Human (Albumin Human 25%) 100 ml @ 100 mls/hr ONCE ONCE IV Last administered on 03/02/17 09:25; Admin Dose 100 MLS/HR; Start 03/02/17 at 09:00 ; Stop 03/02/17 at 09:59 LUIZ SEQUEIRA MD Mar 02, 2017 09:45
--- NOTE | 2017-03-02 10:03 | PN ---
Date/Time of Note Date/Time of Note DATE: 03/02/17 TIME: 09:17 Assessment/Plan VTE Prophylaxis VTE Prophylaxis Intervention: SCD's Lines/Catheters IV Catheter Type (from Nrs): PICC Line Central line still needed: Yes (For IV access) Urinary Cath still in place: Yes Reason Cath still needed: other (indicate) (Acute kidney injury) Assessment/Plan Assessment/Plan 86 yo female with: 1. Acute Respiratory failure, in setting of pleural effusions, atelectasis, severe anemia and Kell glabrata fungemia. Poor overall clinical status. Patient in ICU on mechanical ventilation due to deteriorating respiratory status and pressor x1. CXR still with pulmonary vascular congestion, small to moderate pleural effusions even s/p thoracentesis 02/20 with -300 cc and another right thoracentesis 02/23 with removal of less than 100 cc, Continue Vancomycin and Meropenem. Also on Cancidas. On mechanical ventilation, patient in the volume overload however even her hemodynamics, decreased UOP. CT chest unable to be done because of hemodynamic instability 2. Sepsis and Septic shock, from Kell glabrata fungemia and septicemia . She does have a risk factors but this is the first time her blood cultures are growing yeast, she has been on Diflucan throughout her admission and at discharge from the outside hospital, \ Patient has been now switched to Cancidas as of last week. PICC line needs to be changed, ideally it should be removed and replaced in the next 2-3 days however we do need IV access for her pressors, sedating agent. Therefore after discussion with infectious disease the plan is to remove the PICC line from one extremity and place a central line which the son did agree with yesterday as he refused the PICC line placement. Repeat blood cultures 02/28 with 1/2 blood cultures still positive for yeast it is unclear if it is culture from the PICC line or peripheral. Repeat blood cultures again today 1 from PICC line and one from peripheral. Patient still have the same PICC line. Continue Cancidas Dr. Murphy from infectious diseases following. Patient is currently intubated, off sedation 3 days but significantly unresponsive. On 1 pressor, Levophed. 3. S/p Severe pancreatitis with pseudocyst, holding TPN in setting of persistent candidemia. CAT scan of the abdomen and pelvis has been compared to the one done at [facility] approximately 3 weeks ago, cholecystostomy tube has been removed however there is concern as the patient has a new fluid collection in addition of the previous pseudocyst also previous pseudocyst seems to have increased in size and there is concern for possible infection. Still waiting for drainage of 2nd cyst but INR at 1.4 and patient clinically declined further now intubated and on 2 pressors with ongoing sepsis. Per Surgery note last week, ? bleeding in pseudocyst but patient was not stable to get bleeding scan due to fact she was on BiPAP Continue Meropenem, Vancomycin and Cancidas. Follow-up infectious disease recommendations today. 4. Acute on chronic anemia status post blood product transfusion at least twice during this admission, Hb at 7.7 for now and platelets on 's Transfuse if Hb<7 Patient seems to be in DIC with elevated Direct bili, DDimmer ... Bleeding scan was not done due to respiratory distress and needs for continuous BiPAP, she is not intubated however still having hemodynamic instability GI following. No signs of acute bleeding so far however patient does have positive fecal occult blood. Appreciate GI consult, patient and her son declined EGD prior. Appreciate recommendations of Dr Hannah, may still needs CT guided drainage of 2nd pseudocyst by IR, however patient now with hemodynamic instability and intubated, likely also coagulopathic from a septic state, not a candidate for IR procedure currently. 5. Hypotension/septic shock Based on records patient has been actually put on midodrine 5 mg p.o. tid due to ongoing hypotension even at discharge from [facility], Now the patient intubated, and septic with candidemia with Kell glabrata, continue Levophed for blood pressure support. Continue current antibiotics, appreciate infectious disease assistance Poor prognosis 6. Acute kidney injury, in setting of septic shock and ongoing candidemia Renal function still declining, we will start on normal saline at 75 cc/hr along with albumin bolus today. Anasarca is noted that the patient needs intravascular volume repletion with IV fluids and occasional albumin boluses to try to preserve her renal function as much as possible Kell glabrata positive urine culture last week, Elder catheter has been changed 7. Hyponatremia, Nutrition: We had to hold off TPN due to current fungemia. Infected PICC line still in place due to refusal of son to change it. Appreciate nephrology assistance from Dr. Partida 8. Sinus Tachycardia: Per report from [facility] patient has sinus tachycardia. Resolved as patient in less distress currently after intubation and sedation. 9. Venous thromboembolism with episode of DVT, status post IVC filter. Repeat Doppler negative for DVT 10. Mild coagulopathy: PTT wnl, Vitamin K and FFP as needed for INR 1.4 but to be noted patient with VTE, s/p IVC filter. Current coagulopathy likely related to DIC. Prophylaxis: Protonix for GI prophylaxis, SCDs and status post IVC filter for DVT prophylaxis Disposition: ICU now, intubated on mechanical ventilation , attempted repeat thoracentesis right pleural effusion with very minimal output. Now with fungemia Pending CT chest but unable to perform due to patient's hemodynamic instability Patient's prognosis is even worse with findings of candidemia with Kell glabrata, son updated at length last week while also attempting to explain and obtain consent for central line placement and removal of the current PICC line which is likely infected with Kell glabrata based on cultures and also recommendation from both internal medicine and infectious disease along with critical care. The son has refused to give consent so far and disagree with the current assessment from other treatment team that the patient is critically ill and unfortunately likely not recover from this episode. He seems to be convinced that the patient is improving. Full code per son and Jesus SANTANA. Subjective 24 Hr Interval Summary Free Text/Dictation Patient currently on 1 pressor Levophed at 22 mcg/ minute. Continue patient on Cancidas Patient has been off sedation since 02/27, however she still unresponsive only to noxious stimuli. Severely encephalopathic. Very poor prognosis Patient remains critically sick, unstable, intubated, persistent fungemia that came back Kell glabrata. Blood cultures 1/2 from 02/28, positive with yeast likely Kell glabrata again. Repeat blood cultures today This is a serious infection with likely life threatening outcome but the son still refusing to have the PICC line changed despite recommendation from internal medicine, vascular surgery, critical care and infectious disease to remove the PICC line and place a central line. Also she starting to develop additional organ dysfunction, her kidney function has been worsening, she already has acute renal failure and hemodynamic instability. She was already admitted in poor condition with known pseudocyst, s/p severe pancreatitis, TPN dependent and overall poor clinical status and clinical function Exam/Review of Systems Vital Signs Vitals Vital Signs Date Time Temp Pulse Resp B/P Pulse Ox O2 Delivery O2 Flow Rate FiO2 03/02/17 07:45 90 16 111/57 100 03/02/17 07:00 Mechanical Ventilator 03/02/17 05:05 40 03/02/17 04:00 97.7 Intake and Output 03/01/17 03/01/17 03/02/17 15:00 23:00 07:00 Intake Total 188.61 ml 449.93 ml 108.74 ml Output Total 215 ml 260 ml 245 ml Balance -26.39 ml 189.93 ml -136.26 ml Exam Constitutional: frail, other (Severely encephalopathic, minimally responsive, off sedation for the past 3 days) Respiratory: diminished breath sounds (Bilateral bases), other (Mechanical ventilation) Cardiovascular: nl pulses, regular rate and rhythm Gastrointestinal: non-tender, soft Musculoskeletal: other (Right upper extremity old/infected still in place...) Extremities: normal pulses Neurological: unresponsive (Only to noxious stimuli) Results Result Diagram: 03/02/17 0500 03/02/17 0500 Results 24 hrs Laboratory Tests Test 03/02/17 05:00 White Blood Count 7.6 # Red Blood Count 2.70 L Hemoglobin 7.7 L Hematocrit 23.0 L Mean Corpuscular Volume 85.2 Mean Corpuscular Hemoglobin 28.5 L Mean Corpuscular Hemoglobin Concent 33.5 Red Cell Distribution Width 19.0 H Platelet Count 96 L Mean Platelet Volume 13.8 H Neutrophils % 54.5 Lymphocytes % 35.9 Monocytes % 5.8 Eosinophils % 1.8 Basophils % 0.4 Nucleated Red Blood Cells % 0.0 Neutrophils # 4.1 Lymphocytes # 2.7 Monocytes # 0.4 Eosinophils # 0.1 Basophils # 0.0 Nucleated Red Blood Cells # 0.0 Hypochromasia 1+ Sodium Level 131 L Potassium Level 5.0 Chloride Level 98 Carbon Dioxide Level 21 Anion Gap 17 H Blood Urea Nitrogen 53 H Creatinine 1.94 H Glucose Level 53 #L Calcium Level 7.5 L Total Bilirubin 5.1 H Direct Bilirubin 4.30 H Indirect Bilirubin 0.8 Aspartate Amino Transf (AST/SGOT) 55 H Alanine Aminotransferase (ALT/SGPT) 30 Alkaline Phosphatase 324 H Total Protein 5.6 L Albumin 1.7 L Globulin 3.90 H Albumin/Globulin Ratio 0.43 Medications Medications Current Medications Ondansetron HCl (Zofran Inj) 4 mg Q6H PRN IV NAUSEA AND/OR VOMITING Last administered on 02/13/17 00:36; Admin Dose 4 MG; Start 02/11/17 at 10:00 Acetaminophen (Tylenol Tab) 650 mg Q6H PRN PO PAIN LEVEL 1-3 OR FEVER Last administered on 02/25/17 19:51; Admin Dose 650 MG; Start 02/11/17 at 10:00 Morphine Sulfate (morphine) 2 mg Q4H PRN IV PAIN LEVEL 7-10 Last administered on 02/24/17 01:00; Admin Dose 2 MG; Start 02/11/17 at 10:00 Docusate Sodium (Colace) 100 mg Q12H PRN PO CONSTIPATION; Start 02/11/17 at 10: 00 Bisacodyl (Dulcolax Supp) 10 mg DAILY PRN [place] CONSTIPATION; Start 02/11/17 at 10 :00 Miscellaneous Information (Pending Santyl Order For Wound Care) This patient prado... PRN PRN XX WOUND CARE; Start 02/11/17 at 19:00 Collagenase (Santyl) 1 applic DAILY TOP Last administered on 03/01/17 10:00; Admin Dose 1 APPLIC; Start 02/12/17 at 13:30 Diphenhydramine HCl 25 mg 25 mg Q6H PRN IV ITCHING Last administered on 03:22; Admin Dose 25 MG; Start 02/12/17 at 14:00 Total Parenteral Nutrition (Tpn) 1,000 ml @ 40 mls/hr Q24H IV Last administered on 02/25/17 18:53; Admin Dose 40 MLS/HR; Start 02/12/17 at 18:00; Status Future Hold Alprazolam 0.25 mg 0.25 mg Q12H PRN PO ANXIETY Last administered on 02/23/17 02:09; Admin Dose 0.25 MG; Start 02/19/17 at 14:00 Sodium Chloride (NS) 250 ml @ 250 mls/hr Q1H PRN IV abp below 90 Last administered on 02/21/17 20:08; Admin Dose 250 MLS/HR; Start 02/21/17 at 17:30 Pantoprazole (Protonix Iv) 40 mg DAILY@06 IV Last administered on 03/02/17 05: 56; Admin Dose 40 MG; Start 02/23/17 at 06:00 Midodrine (Proamatine) 5 mg TID PO Last administered on 03/01/17 21:01; Admin Dose 5 MG; Start 02/23/17 at 13:30 Lorazepam (Ativan) 0.5 mg Q8H PRN IV AGITATION/ANXIETY; Start 02/23/17 at 13:30 Miscellaneous Information DAILY XX ; Start 02/25/17 at 09:00 Midazolam HCl 50 ml @ 1 mls/hr TITRATE IV Last administered on 02/25/17 22:54 ; Admin Dose 2 MLS/HR; Start 02/25/17 at 10:00 Fentanyl 100 ml @ 2.5 mls/hr TITRATE IV Last administered on 02/25/17 10:43; Admin Dose 2.5 MLS/HR; Start 02/25/17 at 10:00 Caspofungin 50 mg/ Sodium Chloride 250 ml @ 250 mls/hr Q24H IVPB Last administered on 03/01/17 15:24; Admin Dose 250 MLS/HR; Start 02/27/17 at 14:30 Norepinephrine 32 mg/Dextrose 500 ml @ 0 mls/hr TITRATE IV Last administered on 03/01/17 11:38; Admin Dose 16.87 MLS/HR; Start 02/28/17 at 11:30 Phenylephrine HCl 80 mg/Dextrose 500 ml @ 0 mls/hr TITRATE IV Last administered on 02/28/17 14:18; Admin Dose 7.5 MLS/HR; Start 02/28/17 at 11:30 Vancomycin HCl 750 mg/Sodium Chloride 150 ml @ 75 mls/hr Q48H IVPB ; Start 03/03 at 01:00 Meropenem/Sodium Chloride 50 ml @ 100 mls/hr Q24H IVPB Last administered on 21:01; Admin Dose 100 MLS/HR; Start 03/01/17 at 21:00 Sodium Chloride 1,000 ml @ 75 mls/hr [id number] IV ; Start 03/02/17 at 09:00 Albumin Human (Albumin Human 25%) 100 ml @ 100 mls/hr ONCE ONCE IV ; Start at 09:00; Stop 03/02/17 at 09:59 Procedures Procedures PROCEDURE: XR Chest. CLINICAL INDICATION: Respiratory failure TECHNIQUE: 2 AP views of the chest were obtained COMPARISON: Chest x-ray dated 02/28/2017 FINDINGS: Multiple overlying monitor leads obscure evaluation. The endotracheal tube tip is approximately 3.4 cm above the kavon. The tip of the enteric tube extends below the left diaphragm. There is a right upper extremity PICC line with tip in the mid SVC There is prominence of the interstitial and central pulmonary vascular markings with small to moderate bilateral pleural effusions. No focal airspace opacification or pneumothorax is seen. The cardiomediastinal silhouette is mildly enlarged . Calcifications are seen within the aortic arch. The osseous structures demonstrate senescent changes. IMPRESSION: 1. Findings suggestive of pulmonary vascular congestion with small to moderate bilateral pleural effusions. Lung aeration appears mildly improved when compared to the prior examination. 2. Mild cardiomegaly and aortic atherosclerosis. 3. Tubes and lines, as described above. Multiple overlying monitor leads obscure evaluation. BONIFACIO COWART Mar 02, 2017 09:28
--- NOTE | 2017-03-02 10:04 | CONS ---
Date/Time of Note Date/Time of Note DATE: 03/02/17 TIME: 10:00 Assessment/Plan Assessment/Plan Additional Assessment/Plan Chest x-ray was reviewed from today with again showing bilateral infiltrative as well as changes consistent with mild pulmonary edema. Endotracheal tube is at an adequate level. Current ventilator setting; AC of 16, tidal volume 450, PEEP of 5, 40% FiO2. Patient on Levophed at 22 mics per minute. Next Assessment and recommendations; 1. Patient admitted with severe sepsis due to history of recent pancreatitis and pseudocyst formation. 2. Acute renal failure. 3. Severe persistent hypotension, currently on high-dose Levophed. 4. Anemia. 5. Thrombocytopenia. 6. Extremely poor mental status. Continue current supportive care. Prognosis is very poor. Consultation Date/Type/Reason Admit Date/Time Feb 11, 2017 at 05:28 Initial Consult Date 02/20/17 Type of Consultation: Pulmonary/critical care Referring Provider: BONIFACIO COWART 24 HR Interval Summary Free Text/Dictation Patient condition remains critical. Requiring full ventilator support and high- dose pressor support. Remains completely unresponsive. Remains anuric. General examination; elderly woman, orally intubated, unresponsive. Currently in no distress. Exam/Review of Systems Vital Signs Vitals Vital Signs Date Time Temp Pulse Resp B/P Pulse Ox O2 Delivery O2 Flow Rate FiO2 03/02/17 08:00 89 03/02/17 07:45 16 111/57 100 03/02/17 07:00 Mechanical Ventilator 03/02/17 05:05 40 03/02/17 04:00 97.7 Intake and Output 03/01/17 03/01/17 03/02/17 15:00 23:00 07:00 Intake Total 188.61 ml 449.93 ml 129.34 ml Output Total 215 ml 260 ml 245 ml Balance -26.39 ml 189.93 ml -115.66 ml Exam HEENT exam; supple neck, positive JVD. No lymphadenopathy. Midline trachea. No thyromegaly. Orally intubated. Patient has few remaining teeth. Has bilateral intraocular lens implants. Chest exam; diminished breath sounds throughout. S1-S2 audible, no murmurs. Regular rhythm. Abdomen exam; soft, no organomegaly. Bowel sounds are sluggish. Extremity exam; 2+ anasarca. Patient has a multiple ecchymosis involving all 4 extremities. 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 Results Result Diagram: 03/02/17 0500 03/02/17 0500 Results 24 hrs Laboratory Tests Test 03/02/17 05:00 White Blood Count 7.6 # Red Blood Count 2.70 L Hemoglobin 7.7 L Hematocrit 23.0 L Mean Corpuscular Volume 85.2 Mean Corpuscular Hemoglobin 28.5 L Mean Corpuscular Hemoglobin Concent 33.5 Red Cell Distribution Width 19.0 H Platelet Count 96 L Mean Platelet Volume 13.8 H Neutrophils % 54.5 Lymphocytes % 35.9 Monocytes % 5.8 Eosinophils % 1.8 Basophils % 0.4 Nucleated Red Blood Cells % 0.0 Neutrophils # 4.1 Lymphocytes # 2.7 Monocytes # 0.4 Eosinophils # 0.1 Basophils # 0.0 Nucleated Red Blood Cells # 0.0 Hypochromasia 1+ Sodium Level 131 L Potassium Level 5.0 Chloride Level 98 Carbon Dioxide Level 21 Anion Gap 17 H Blood Urea Nitrogen 53 H Creatinine 1.94 H Glucose Level 53 #L Calcium Level 7.5 L Total Bilirubin 5.1 H Direct Bilirubin 4.30 H Indirect Bilirubin 0.8 Aspartate Amino Transf (AST/SGOT) 55 H Alanine Aminotransferase (ALT/SGPT) 30 Alkaline Phosphatase 324 H Total Protein 5.6 L Albumin 1.7 L Globulin 3.90 H Albumin/Globulin Ratio 0.43 Medications Medications Current Medications Ondansetron HCl (Zofran Inj) 4 mg Q6H PRN IV NAUSEA AND/OR VOMITING Last administered on 02/13/17 00:36; Admin Dose 4 MG; Start 02/11/17 at 10:00 Acetaminophen (Tylenol Tab) 650 mg Q6H PRN PO PAIN LEVEL 1-3 OR FEVER Last administered on 02/25/17 19:51; Admin Dose 650 MG; Start 02/11/17 at 10:00 Morphine Sulfate (morphine) 2 mg Q4H PRN IV PAIN LEVEL 7-10 Last administered on 02/24/17 01:00; Admin Dose 2 MG; Start 02/11/17 at 10:00 Docusate Sodium (Colace) 100 mg Q12H PRN PO CONSTIPATION; Start 02/11/17 at 10: 00 Bisacodyl (Dulcolax Supp) 10 mg DAILY PRN [place] CONSTIPATION; Start 02/11/17 at 10 :00 Miscellaneous Information (Pending Santyl Order For Wound Care) This patient prado... PRN PRN XX WOUND CARE; Start 02/11/17 at 19:00 Collagenase (Santyl) 1 applic DAILY TOP Last administered on 03/02/17 09:25; Admin Dose 1 APPLIC; Start 02/12/17 at 13:30 Diphenhydramine HCl 25 mg 25 mg Q6H PRN IV ITCHING Last administered on 03:22; Admin Dose 25 MG; Start 02/12/17 at 14:00 Total Parenteral Nutrition (Tpn) 1,000 ml @ 40 mls/hr Q24H IV Last administered on 02/25/17 18:53; Admin Dose 40 MLS/HR; Start 02/12/17 at 18:00; Status Future Hold Alprazolam 0.25 mg 0.25 mg Q12H PRN PO ANXIETY Last administered on 02/23/17 02:09; Admin Dose 0.25 MG; Start 02/19/17 at 14:00 Sodium Chloride (NS) 250 ml @ 250 mls/hr Q1H PRN IV abp below 90 Last administered on 02/21/17 20:08; Admin Dose 250 MLS/HR; Start 02/21/17 at 17:30 Pantoprazole (Protonix Iv) 40 mg DAILY@06 IV Last administered on 03/02/17 05: 56; Admin Dose 40 MG; Start 02/23/17 at 06:00 Midodrine (Proamatine) 5 mg TID PO Last administered on 03/02/17 09:23; Admin Dose 5 MG; Start 02/23/17 at 13:30 Lorazepam (Ativan) 0.5 mg Q8H PRN IV AGITATION/ANXIETY; Start 02/23/17 at 13:30 Miscellaneous Information DAILY XX ; Start 02/25/17 at 09:00 Midazolam HCl 50 ml @ 1 mls/hr TITRATE IV Last administered on 02/25/17 22:54 ; Admin Dose 2 MLS/HR; Start 02/25/17 at 10:00 Fentanyl 100 ml @ 2.5 mls/hr TITRATE IV Last administered on 02/25/17 10:43; Admin Dose 2.5 MLS/HR; Start 7/26/17 at 10:00 Caspofungin 50 mg/ Sodium Chloride 250 ml @ 250 mls/hr Q24H IVPB Last administered on 03/01/17 15:24; Admin Dose 250 MLS/HR; Start 02/27/17 at 14:30 Norepinephrine 32 mg/Dextrose 500 ml @ 0 mls/hr TITRATE IV Last administered on 03/01/17 11:38; Admin Dose 16.87 MLS/HR; Start 02/28/17 at 11:30 Phenylephrine HCl 80 mg/Dextrose 500 ml @ 0 mls/hr TITRATE IV Last administered on 02/28/17 14:18; Admin Dose 7.5 MLS/HR; Start 02/28/17 at 11:30 Vancomycin HCl 750 mg/Sodium Chloride 150 ml @ 75 mls/hr Q48H IVPB ; Start 03/03 at 01:00 Meropenem/Sodium Chloride 50 ml @ 100 mls/hr Q24H IVPB Last administered on 21:01; Admin Dose 100 MLS/HR; Start 03/01/17 at 21:00 Sodium Chloride (NS) 1,000 ml @ 75 mls/hr [id number] IV Last administered on 03/02 09:25; Admin Dose 75 MLS/HR; Start 03/02/17 at 09:00 LISA KOEHLER Mar 02, 2017 10:04
--- NOTE | 2017-03-02 11:05 | CONS ---
Date/Time of Note Date/Time of Note DATE: 03/02/17 TIME: 10:43 Assessment/Plan Assessment/Plan Chief Complaint/Hosp Course ID PROGRESS NOTE TOTAL ABX DAY #5 => VANCO IV + MERREM + Cancidas 24H INTERVAL SUMMARY * Sepsis, fevers continue -> plan is for central line w/removal of PICC * WBC down today * Sepsis => (+)Yeast UTI (+)Yeast BCx = Fungemia due to Infected PICC line + UTI * 02/28/17 repeat BCx (+) Dontrell: 02/28/17-922 Source: BLOOD BLOOD CULTURE Preliminary BCULT GRAM BOTTLE 1 Yeast . seen on gram stain of the broth Organism 1 YEAST GENERAL: Elderly lady on mechanical ventilation orally intubated. VITAL SIGNS: see below. HEENT: Unremarkable ETT-> secure to Vent CARDIAC: S1, S2, 1/6 systolic ejection murmur CHEST: Diminished air entry bilaterally. ABDOMEN: Mildly distended. Bowel sounds present no guarding or rebound EXTREMITIES: No cyanosis, clubbing edema +2 NEUROLOGIC: Generalized weakness ID ASSESSMENT 86 yo F with: 1. Sepsis w/Fevers >102.+ 02/24 &, leukocytosis, tachycardia => Disseminated candidiasis * BCx 02/25 (+) YEAST => Infx PICC line * 02/25/17 YEAST UTI 2. Acute hypoxic respiratory failure=> Intubated 02/24 in setting of sepsis 3. Severe pancreatitis with pseudocyst, currently on TPN. 4. Acute on chronic anemia status post blood product transfusion 5. Urinary retention 6. s/p VRE UTI 02/15/17 7. s/p acute kidney injury 8. Venous thromboembolism with episode of DVT, status post IVC filter. Repeat Doppler negative for DVT (+)MRSA Nares screen (+)MRSA Stool colonization (+)VRE Stool colonization INVASIVES: PICC, ETT, OGT ABX ALLERGY: PCN CURRENT ABX: #5 => VANCO IV + MERREM + Cancidas ID RECOMMENDATIONS 1. Continue current broad spectrum IV ABX coverage 2. Repeat BCx still (+)Yeast => Continue Cancidas -> recommendation remains in place; place alternative access and change the PICC line. Problems: Consultation Date/Type/Reason Admit Date/Time Feb 11, 2017 at 05:28 Initial Consult Date 02/21/17 Type of Consultation: ID Referring Provider: BONIFACIO COWART Exam/Review of Systems Vital Signs Vitals Vital Signs Date Time Temp Pulse Resp B/P Pulse Ox O2 Delivery O2 Flow Rate FiO2 03/02/17 08:00 89 03/02/17 07:45 16 111/57 100 03/02/17 07:00 Mechanical Ventilator 03/02/17 05:05 40 03/02/17 04:00 97.7 Intake and Output 03/01/17 03/01/17 03/02/17 15:00 23:00 07:00 Intake Total 188.61 ml 449.93 ml 129.34 ml Output Total 215 ml 260 ml 245 ml Balance -26.39 ml 189.93 ml -115.66 ml Results Result Diagram: 03/02/17 0500 03/02/17 0500 Results 24 hrs Laboratory Tests Test 03/02/17 05:00 White Blood Count 7.6 # Red Blood Count 2.70 L Hemoglobin 7.7 L Hematocrit 23.0 L Mean Corpuscular Volume 85.2 Mean Corpuscular Hemoglobin 28.5 L Mean Corpuscular Hemoglobin Concent 33.5 Red Cell Distribution Width 19.0 H Platelet Count 96 L Mean Platelet Volume 13.8 H Neutrophils % 54.5 Lymphocytes % 35.9 Monocytes % 5.8 Eosinophils % 1.8 Basophils % 0.4 Nucleated Red Blood Cells % 0.0 Neutrophils # 4.1 Lymphocytes # 2.7 Monocytes # 0.4 Eosinophils # 0.1 Basophils # 0.0 Nucleated Red Blood Cells # 0.0 Hypochromasia 1+ Sodium Level 131 L Potassium Level 5.0 Chloride Level 98 Carbon Dioxide Level 21 Anion Gap 17 H Blood Urea Nitrogen 53 H Creatinine 1.94 H Glucose Level 53 #L Calcium Level 7.5 L Total Bilirubin 5.1 H Direct Bilirubin 4.30 H Indirect Bilirubin 0.8 Aspartate Amino Transf (AST/SGOT) 55 H Alanine Aminotransferase (ALT/SGPT) 30 Alkaline Phosphatase 324 H Total Protein 5.6 L Albumin 1.7 L Globulin 3.90 H Albumin/Globulin Ratio 0.43 Medications Medications Current Medications Ondansetron HCl (Zofran Inj) 4 mg Q6H PRN IV NAUSEA AND/OR VOMITING Last administered on 02/13/17t 00:36; Admin Dose 4 MG; Start 02/11/17 at 10:00 Acetaminophen (Tylenol Tab) 650 mg Q6H PRN PO PAIN LEVEL 1-3 OR FEVER Last administered on 02/25/17 19:51; Admin Dose 650 MG; Start 02/11/17 at 10:00 Morphine Sulfate (morphine) 2 mg Q4H PRN IV PAIN LEVEL 7-10 Last administered on 02/24/17 01:00; Admin Dose 2 MG; Start 02/11/17 at 10:00 Docusate Sodium (Colace) 100 mg Q12H PRN PO CONSTIPATION; Start 02/11/17 at 10: 00 Bisacodyl (Dulcolax Supp) 10 mg DAILY PRN [place] CONSTIPATION; Start 02/11/17 at 10 :00 Miscellaneous Information (Pending Santyl Order For Wound Care) This patient prado... PRN PRN XX WOUND CARE; Start 02/11/17 at 19:00 Collagenase (Santyl) 1 applic DAILY TOP Last administered on 03/02/17 09:25; Admin Dose 1 APPLIC; Start 02/12/17 at 13:30 Diphenhydramine HCl 25 mg 25 mg Q6H PRN IV ITCHING Last administered on 03:22; Admin Dose 25 MG; Start 02/12/17 at 14:00 Total Parenteral Nutrition (Tpn) 1,000 ml @ 40 mls/hr Q24H IV Last administered on 02/25/17 18:53; Admin Dose 40 MLS/HR; Start 02/12/17 at 18:00; Status Future Hold Alprazolam 0.25 mg 0.25 mg Q12H PRN PO ANXIETY Last administered on 02/23/17 02:09; Admin Dose 0.25 MG; Start 02/19/17 at 14:00 Sodium Chloride (NS) 250 ml @ 250 mls/hr Q1H PRN IV abp below 90 Last administered on 02/21/17 20:08; Admin Dose 250 MLS/HR; Start 02/21/17 at 17:30 Pantoprazole (Protonix Iv) 40 mg DAILY@06 IV Last administered on 03/02/17 05: 56; Admin Dose 40 MG; Start 02/23/17 at 06:00 Midodrine (Proamatine) 5 mg TID PO Last administered on 03/02/17 09:23; Admin Dose 5 MG; Start 02/23/17 at 13:30 Lorazepam (Ativan) 0.5 mg Q8H PRN IV AGITATION/ANXIETY; Start 02/23/17 at 13:30 Miscellaneous Information DAILY XX ; Start 02/25/17 at 09:00 Midazolam HCl 50 ml @ 1 mls/hr TITRATE IV Last administered on 02/25/17 22:54 ; Admin Dose 2 MLS/HR; Start 02/25/17 at 10:00 Fentanyl 100 ml @ 2.5 mls/hr TITRATE IV Last administered on 02/25/17 10:43; Admin Dose 2.5 MLS/HR; Start 02/25/17 at 10:00 Caspofungin 50 mg/ Sodium Chloride 250 ml @ 250 mls/hr Q24H IVPB Last administered on 03/01/17 15:24; Admin Dose 250 MLS/HR; Start 02/27/17 at 14:30 Norepinephrine 32 mg/Dextrose 500 ml @ 0 mls/hr TITRATE IV Last administered on 03/01/17 11:38; Admin Dose 16.87 MLS/HR; Start 02/28/17 at 11:30 Phenylephrine HCl 80 mg/Dextrose 500 ml @ 0 mls/hr TITRATE IV Last administered on 02/28/17 14:18; Admin Dose 7.5 MLS/HR; Start 02/28/17 at 11:30 Vancomycin HCl 750 mg/Sodium Chloride 150 ml @ 75 mls/hr Q48H IVPB ; Start 03/03 at 01:00 Meropenem/Sodium Chloride 50 ml @ 100 mls/hr Q24H IVPB Last administered on 21:01; Admin Dose 100 MLS/HR; Start 03/01/17 at 21:00 Sodium Chloride (NS) 1,000 ml @ 75 mls/hr [id number] IV Last administered on 03/02 09:25; Admin Dose 75 MLS/HR; Start 03/02/17 at 09:00 DEBORA WILLOUGHBY NP Mar 02, 2017 11:05
[2017-03-02 11:51] LABS: CALCIUM 7.4 mg/dl (8.4-10.2); POTASSIUM 4.7 mmol/L (3.5-5.1)
[2017-03-02 12:08] LABS: CREATININE 1.9 mg/dl (0.44-1.00)
[2017-03-02] MEDS: DEXTROSE 50% 50 ML SYRINGE IV PRN (12:18)
[2017-03-02] MEDS ORDERED: GLUCAGON 1 MG INJ IM PRN (12:30)
[2017-03-02] MEDS ORDERED: GLUCOSE GEL 15 GRAM TUBE PO PRN ×2 (12:30)
[2017-03-02] MEDS ORDERED: GLUCOSE GEL 15 GRAM TUBE BUCCAL PRN (12:30)
[2017-03-02] MEDS ORDERED: DEXTROSE 50% 50 ML SYRINGE IV PRN (12:30)
[2017-03-02] MEDS: DEXTROSE 5%-0.9% NACL 1,000 ML IV SCH (13:17)
[2017-03-02] MEDS ORDERED: morphine 4 MG/ML VIAL IV PRN (14:00)
[2017-03-02] MEDS: CASPOFUNGIN 50 MG in SOD CHLORIDE 0.9% 250 ML IVPB SCH (15:25)
[2017-03-02] MEDS: MEROPENEM 500MG/50 ML (PMX) 50 ML IVPB SCH (20:47)
[2017-03-03] VITALS (104 sets, daily range): BP systolic 85–113; BP diastolic 45–72; PULSE 75–89; RESP 14–20
[2017-03-03] MEDS: VANCOMYCIN 750 MG in DEXTROSE 5% 150 ML IVPB SCH (01:13)
[2017-03-03] MEDS: DEXTROSE 5%-0.9% NACL 1,000 ML IV SCH ×2 (01:14→15:10)
[2017-03-03] MEDS: PANTOPRAZOLE 40 MG INJ IV SCH (05:37)
[2017-03-03 05:39] LABS: INR 1.45; PROTIME 17.7 Sec (12.2-14.2); PT RATIO 1.4
[2017-03-03 05:40] LABS: PARTIAL THROMBOPLASTIN TIME 43.2 Sec (25.0-35.0)
[2017-03-03 05:49] LABS: MAGNESIUM 1.8 mg/dl (1.7-2.5); PHOSPHORUS 7.6 mg/dl (2.5-4.9)
[2017-03-03 06:07] LABS: ALBUMIN 1.8 g/dl (3.3-4.9); ALBUMIN/GLOBULIN RATIO 0.48; BILIRUBIN,DIRECT 5.8 mg/dl (0.00-0.20); BILIRUBIN,TOTAL 6.8 mg/dl (0.2-1.3); CALCIUM 7.3 mg/dl (8.4-10.2); CREATININE 1.55 mg/dl (0.44-1.00); POTASSIUM 4.1 mmol/L (3.5-5.1); TOTAL PROTEIN 5.5 g/dl (6.1-8.1)
[2017-03-03 07:14] LABS: ABNORMAL IP MESSAGE 1; BASOPHILS % 0.3 % (0.0-2.0); EOSINOPHILS # 0.1 10^3/ul (0.0-0.5); EOSINOPHILS % 2.1 % (0.0-7.0); HEMATOCRIT 21.8 % (37.0-47.0); HEMOGLOBIN 7.1 g/dl (12.0-16.0); LYMPHOCYTES # 2.1 10^3/ul (0.8-2.9); LYMPHOCYTES % 34.5 % (15.0-51.0); MEAN CORPUSCULAR HEMOGLOBIN 27.7 pg (29.0-33.0); MEAN CORPUSCULAR HGB CONC 32.6 g/dl (32.0-37.0); MEAN CORPUSCULAR VOLUME 85.2 fl (82.0-101.0); MEAN PLATELET VOLUME 13.1 fl (7.4-10.4); MONOCYTE # 0.3 10^3/ul (0.3-0.9); NEUTROPHIL # 3.5 10^3/ul (1.6-7.5); NEUTROPHILS % 56.6 % (39.0-77.0); NUCLEATED RED BLOOD CELLS% 0.3 /100WBC (0.0-0.0); PLATELET COUNT 108 10^3/UL (140-415); RED BLOOD COUNT 2.56 10^6/ul (4.20-5.40); RED CELL DISTRIBUTION WIDTH 18.9 % (11.5-14.5); WHITE BLOOD COUNT 6.1 10^3/ul (4.8-10.8)
[2017-03-03] MEDS: IPRATROPIUM (HFA) 12.9 GM INHALER INH SCH ×3 (07:19→23:06)
[2017-03-03] MEDS: ALBUTEROL 18 GM INHALER INH SCH ×3 (07:19→23:06)
[2017-03-03 07:20] LABS: POSITIVE DIFF @See below
--- NOTE | 2017-03-03 07:25 | CONS ---
Date/Time of Note Date/Time of Note DATE: 03/03/17 TIME: 07:23 Assessment/Plan Assessment/Plan Additional Assessment/Plan Ventilator setting; AC of 16, tidal volume 450, PEEP of 5, 40% FiO2. Assessment and recommendations; 1. Patient admitted with sepsis due to pancreatic pseudocyst with respiratory failure. 2. Bilateral pneumonia. 3. Improving hypotension. 4. Improving thrombocytopenia. 5. Anemia. 6. Chronic renal insufficiency. 7. Extremely poor mental status. Continue current treatment. Prognosis is very poor. Consultation Date/Type/Reason Admit Date/Time Feb 11, 2017 at 05:28 Initial Consult Date 02/20/17 Type of Consultation: Pulmonary/critical care Referring Provider: BONIFACIO COWART 24 HR Interval Summary Free Text/Dictation Patient condition remains critical. Remains unresponsive. Has remained hemodynamically stable. General exam; elderly woman, orally intubated, unresponsive, currently in no distress. Exam/Review of Systems Vital Signs Vitals Vital Signs Date Time Temp Pulse Resp B/P Pulse Ox O2 Delivery O2 Flow Rate FiO2 03/03/17 06:15 83 17 91/50 100 Mechanical Ventilator 03/03/17 05:16 40 03/03/17 04:00 96.9 Intake and Output 03/02/17 03/02/17 03/03/17 15:00 23:00 07:00 Intake Total 314.8 ml 1064.92 ml 812.79 ml Output Total 30 ml 160 ml 315 ml Balance 284.8 ml 904.92 ml 497.79 ml Exam HEENT exam; supple neck, no JVD. No lymphadenopathy. Midline trachea. No thyromegaly. Orally intubated. Chest exam; diminished breath sounds bilaterally with scattered crackles. S1- S2 audible, no murmurs. Regular rhythm. Abdomen exam; soft, nondistended. No organomegaly. Bowel sounds are sluggish. Extremity exam; trace edema. ADMISSIONS OFFICER exam; patient remains unresponsive. Results Result Diagram: 03/03/17 0458 03/03/17 0458 Results 24 hrs Laboratory Tests Test 03/02/17 10:44 03/02/17 12:48 03/02/17 17:26 03/02/17 23:51 Sodium Level 129 L Potassium Level 4.7 Chloride Level 98 Carbon Dioxide Level 19 L Anion Gap 17 H Blood Urea Nitrogen 54 H Creatinine 1.90 H Glucose Level 55 L Calcium Level 7.4 L Bedside Glucose 106 112 114 Test 03/03/17 00:10 03/03/17 04:58 03/03/17 05:34 Vancomycin Level Trough 18.7 White Blood Count 6.1 Red Blood Count 2.56 L Hemoglobin 7.1 L Hematocrit 21.8 L Mean Corpuscular Volume 85.2 Mean Corpuscular Hemoglobin 27.7 L Mean Corpuscular Hemoglobin Concent 32.6 Red Cell Distribution Width 18.9 H Platelet Count 108 L Mean Platelet Volume 13.1 H Neutrophils % 56.6 Lymphocytes % 34.5 Monocytes % 5.0 Eosinophils % 2.1 Basophils % 0.3 Nucleated Red Blood Cells % 0.3 H Neutrophils # 3.5 Lymphocytes # 2.1 Monocytes # 0.3 Eosinophils # 0.1 Basophils # 0.0 Nucleated Red Blood Cells # 0.0 Prothrombin Time 17.7 H Prothrombin Time Ratio 1.4 INR International Normalized Ratio 1.45 Activated Partial Thromboplast Time 43.2 H Sodium Level 134 L Potassium Level 4.1 Chloride Level 103 Carbon Dioxide Level 21 Anion Gap 14 Blood Urea Nitrogen 48 H Creatinine 1.55 H Glucose Level 101 # Calcium Level 7.3 L Phosphorus Level 7.6 H Magnesium Level 1.8 Total Bilirubin 6.8 H Direct Bilirubin 5.80 H Indirect Bilirubin 1.0 Aspartate Amino Transf (AST/SGOT) 43 Alanine Aminotransferase (ALT/SGPT) 30 Alkaline Phosphatase 324 H Total Protein 5.5 L Albumin 1.8 L Globulin 3.70 H Albumin/Globulin Ratio 0.48 Bedside Glucose 98 Medications Medications Current Medications Ondansetron HCl (Zofran Inj) 4 mg Q6H PRN IV NAUSEA AND/OR VOMITING Last administered on 02/13/17 00:36; Admin Dose 4 MG; Start 02/11/17 at 10:00 Acetaminophen (Tylenol Tab) 650 mg Q6H PRN PO PAIN LEVEL 1-3 OR FEVER Last administered on 02/25/17 19:51; Admin Dose 650 MG; Start 02/11/17 at 10:00 Docusate Sodium (Colace) 100 mg Q12H PRN PO CONSTIPATION; Start 02/11/17 at 10: 00 Bisacodyl (Dulcolax Supp) 10 mg DAILY PRN [place] CONSTIPATION; Start 02/11/17 at 10 :00 Miscellaneous Information (Pending Santyl Order For Wound Care) This patient prado... PRN PRN XX WOUND CARE; Start 02/11/17 at 19:00 Collagenase (Santyl) 1 applic DAILY TOP Last administered on 03/02/17 09:25; Admin Dose 1 APPLIC; Start 02/12/17 at 13:30 Diphenhydramine HCl 25 mg 25 mg Q6H PRN IV ITCHING Last administered on 03:22; Admin Dose 25 MG; Start 02/12/17 at 14:00 Total Parenteral Nutrition (Tpn) 1,000 ml @ 40 mls/hr Q24H IV Last administered on 02/25/17 18:53; Admin Dose 40 MLS/HR; Start 02/12/17 at 18:00; Status Future Hold Alprazolam 0.25 mg 0.25 mg Q12H PRN PO ANXIETY Last administered on 02/23/17 02:09; Admin Dose 0.25 MG; Start 02/19/17 at 14:00 Sodium Chloride (NS) 250 ml @ 250 mls/hr Q1H PRN IV abp below 90 Last administered on 02/21/17 20:08; Admin Dose 250 MLS/HR; Start 02/21/17 at 17:30 Pantoprazole (Protonix Iv) 40 mg DAILY@06 IV Last administered on 03/03/17 05: 37; Admin Dose 40 MG; Start 02/23/17 at 06:00 Midodrine (Proamatine) 5 mg TID PO Last administered on 03/02/17 20:46; Admin Dose 5 MG; Start 02/23/17 at 13:30 Lorazepam (Ativan) 0.5 mg Q8H PRN IV AGITATION/ANXIETY; Start 02/23/17 at 13:30 Miscellaneous Information DAILY XX ; Start 02/25/17 at 09:00 Midazolam HCl 50 ml @ 1 mls/hr TITRATE IV Last administered on 02/25/17 22:54 ; Admin Dose 2 MLS/HR; Start 02/25/17 at 10:00 Fentanyl 100 ml @ 2.5 mls/hr TITRATE IV Last administered on 02/25/17 10:43; Admin Dose 2.5 MLS/HR; Start 02/25/17 at 10:00 Caspofungin 50 mg/ Sodium Chloride 250 ml @ 250 mls/hr Q24H IVPB Last administered on 03/02/17 15:25; Admin Dose 250 MLS/HR; Start 02/27/17 at 14:30 Norepinephrine 32 mg/Dextrose 500 ml @ 0 mls/hr TITRATE IV Last administered on 03/02/17 11:44; Admin Dose 20.62 MLS/HR; Start 02/28/17 at 11:30 Phenylephrine HCl 80 mg/Dextrose 500 ml @ 0 mls/hr TITRATE IV Last administered on 02/28/17 14:18; Admin Dose 7.5 MLS/HR; Start 02/28/17 at 11:30 Vancomycin HCl 750 mg/Dextrose/ Water 150 ml @ 75 mls/hr Q48H IVPB Last administered on 03/03/17 01:13; Admin Dose 75 MLS/HR; Start 03/03/17 at 01:00 Meropenem/Sodium Chloride 50 ml @ 100 mls/hr Q24H IVPB Last administered on 20:47; Admin Dose 100 MLS/HR; Start 03/01/17 at 21:00 Dextrose/Sodium Chloride (D5-NS) 1,000 ml @ 75 mls/hr [id number] IV Last administered on 03/03/17 01:14; Admin Dose 75 MLS/HR; Start 03/02/17 at 12:30 Miscellaneous Information 1 ea NOTE XX ; Start 03/02/17 at 12:30 Glucose (Glutose) 15 gm Q15M PRN PO DECREASED GLUCOSE; Start 03/02/17 at 12:30 Glucose (Glutose) 22.5 gm Q15M PRN PO DECREASED GLUCOSE; Start 03/02/17 at 12: 30 Dextrose (D50w Syringe) 25 ml Q15M PRN IV DECREASED GLUCOSE Last administered on 03/02/17 12:18; Admin Dose 25 ML; Start 03/02/17 at 12:30 Dextrose (D50w Syringe) 50 ml Q15M PRN IV DECREASED GLUCOSE; Start 03/02/17 at 12:30 Glucagon (Glucagen) 1 mg Q15M PRN IM DECREASED GLUCOSE; Start 03/02/17 at 12:30 Glucose (Glutose) 15 gm Q15M PRN BUCCAL DECREASED GLUCOSE; Start 03/02/17 at 12 :30 Morphine Sulfate (morphine) 2 mg Q4H PRN IV PAIN LEVEL 7-10; Start 03/02/17 at 14:00 LISA KOEHLER Mar 03, 2017 07:25
[2017-03-03] MEDS: [UNRECOGNIZED DRUG - REMARK] XX SCH (09:00)
[2017-03-03] MEDS: MIDODRINE 5 MG TAB PO SCH ×3 (09:49→20:41)
[2017-03-03] MEDS: COLLAGENASE 30 GM TUBE TOP SCH (09:49)
[2017-03-03] MEDS: BALSAM PERU/CASTOR OIL 60 GM TUBE TOP SCH (09:49)
[2017-03-03] MEDS ORDERED: ALBUMIN HUMAN 25% 100 ML IV ONE (10:00)
--- NOTE | 2017-03-03 10:01 | PN ---
Date/Time of Note Date/Time of Note DATE: 03/03/17 TIME: 09:33 Assessment/Plan VTE Prophylaxis VTE Prophylaxis Intervention: SCD's Lines/Catheters IV Catheter Type (from Nrs): PICC Line Central line still needed: Yes (Old PICC line still in place, RUE) Urinary Cath still in place: Yes Reason Cath still needed: other (indicate) (Acute kidney injury, critically ill and intubated) Assessment/Plan Assessment/Plan 86 yo female with: 1. Acute Respiratory failure, in setting of pleural effusions, atelectasis, severe anemia and Kell glabrata fungemia. Poor overall clinical status. Patient in ICU on mechanical ventilation due to deteriorating respiratory status and pressor x1. CXR still with pulmonary vascular congestion, small to moderate pleural effusions even s/p thoracentesis 02/20 with -300 cc and another right thoracentesis 02/23 with removal of less than 100 cc, Continue Vancomycin, Meropenem and Cancidas. On mechanical ventilation, FiO2 down to 40%, continue to monitor, pulmonary following. 2. Sepsis and Septic shock, from Kell glabrata fungemia and septicemia . She does have a risk factors but this is the first time her blood cultures are growing yeast, she has been on Diflucan throughout her admission and at discharge from the outside hospital. Patient has been now switched to Cancidas as of last week. PICC line needs to be changed, ideally it should be removed and replaced in the next 2-3 days however we do need IV access for her pressors, sedating agent. Therefore after discussion with infectious disease the plan is to remove the PICC line from one extremity and place a central line which the son did agree with yesterday as he refused the PICC line placement. Repeat blood cultures 02/28 with 1/2 blood cultures still positive for yeast it is unclear if it is culture from the PICC line or peripheral. Repeat blood cultures again yesterday, 1 from PICC line and one from peripheral. Patient still have the same PICC line. Continue Cancidas Dr. Murphy from infectious diseases following. Patient is currently intubated, off sedation 4 days but significantly unresponsive. On 1 pressor, Levophed down to 19 mcg/min. 3. S/p Severe pancreatitis with pseudocyst, holding TPN in setting of persistent candidemia. CAT scan of the abdomen and pelvis has been compared to the one done at [facility] approximately 3 weeks ago, cholecystostomy tube has been removed however there is concern as the patient has a new fluid collection in addition of the previous pseudocyst also previous pseudocyst seems to have increased in size and there is concern for possible infection. We were planing for drainage of 2nd cyst since admission, but INR at 1.4 and patient clinically declined further now intubated and on 1 pressor with ongoing sepsis. Per Surgery note last week, ? bleeding in pseudocyst but patient was not stable to get bleeding scan due to fact she was on BiPAP Continue Meropenem, Vancomycin and Cancidas. Follow-up infectious disease recommendations today. 4. Acute on chronic anemia status post blood product transfusion at least twice during this admission, Hb at 7.1 for now and platelets in the 100's now. Transfuse if Hb<7 Patient seems to have been in DIC with elevated Direct bili, DDimmer ... Bleeding scan was not done due to respiratory distress and needs for continuous BiPAP, she is now intubated however still having hemodynamic instability GI following. No signs of acute bleeding so far however patient does have positive fecal occult blood. Appreciate GI consult, patient and her son declined EGD prior. Appreciate recommendations of Dr Hannah, may still needs CT guided drainage of 2nd pseudocyst by IR, however patient now with hemodynamic instability and intubated, likely also coagulopathic from a septic state, not a candidate for IR procedure currently. 5. Hypotension/septic shock Based on records patient has been actually put on midodrine 5 mg p.o. tid due to ongoing hypotension even at discharge from Located within [facility], Now the patient intubated, and septic with candidemia with Kell glabrata, continue Levophed for blood pressure support may need to titrate even further as patient responding to albumin and IV fluids. Continue current antibiotics, appreciate infectious disease assistance Poor prognosis 6. Acute kidney injury, in setting of septic shock and ongoing candidemia. Urine output picked up yesterday and renal function slightly improved once she was given a bolus of albumin and started on IV fluids Continue D5NS at 75 cc/hr and also repeating albumin bolus today. Anasarca is noted that the patient needs intravascular volume repletion with IV fluids and occasional albumin boluses to try to preserve her renal function as much as possible Kell glabrata positive urine culture last week, Elder catheter has been changed 7. Hyponatremia, Nutrition: We had to hold off TPN due to current fungemia. Infected PICC line still in place due to refusal of son to change it. Appreciate nephrology assistance from Dr. Partida 8. Sinus Tachycardia: Per report from [facility] patient has sinus tachycardia. Resolved as patient in less distress currently after intubation and sedation. 9. Venous thromboembolism with episode of DVT, status post IVC filter. Repeat Doppler negative for DVT 10. Mild coagulopathy: PTT wnl, Vitamin K and FFP as needed for INR 1.4 but to be noted patient with VTE, s/p IVC filter. Current coagulopathy likely related to DIC. Monitor. Prophylaxis: Protonix for GI prophylaxis, SCDs and status post IVC filter for DVT prophylaxis Disposition: ICU now, intubated on mechanical ventilation , attempted repeat thoracentesis right pleural effusion with very minimal output. Now with fungemia Pending CT chest but unable to perform due to patient's hemodynamic instability Patient's prognosis is even worse with findings of candidemia with Kell glabrata, son updated at length last week while also attempting to explain and obtain consent for central line placement and removal of the current PICC line which is likely infected with Kell glabrata based on cultures and also recommendation from both internal medicine and infectious disease along with critical care. The son has refused to give consent so far and disagree with the current assessment from the treatment team that the patient is critically ill and unfortunately likely not recover from this episode. Full code per son and DPSHARATH, Jesus Muller. Subjective 24 Hr Interval Summary Free Text/Dictation Patient urine output picked up over the past 24 hours, status post albumin bolus 1, continue IV fluids, renal function slightly improved. Blood sugar stable CBC slightly improved however patient still anemic with a hemoglobin of 7.1, she may need transfusion in the next couple of days. Patient of sedation for at least 4 days now, remains minimally responsive Remains afebrile, repeat blood cultures yesterday NGTD Old PICC line still in place due to refusal of a new central line placement per Son/DPOA. Exam/Review of Systems Vital Signs Vitals Vital Signs Date Time Temp Pulse Resp B/P Pulse Ox O2 Delivery O2 Flow Rate FiO2 03/03/17 07:19 80 16 100 40 03/03/17 06:15 91/50 Mechanical Ventilator 03/03/17 04:00 96.9 Intake and Output 03/02/17 03/02/17 03/03/17 15:00 23:00 07:00 Intake Total 314.8 ml 1064.92 ml 812.79 ml Output Total 30 ml 160 ml 315 ml Balance 284.8 ml 904.92 ml 497.79 ml Exam Constitutional: non-verbal, other (Intubated, minimally responsive of sedation) Respiratory: diminished breath sounds (Bilateral bases), other (On vent with FiO2 40%) Cardiovascular: nl pulses, regular rate and rhythm Gastrointestinal: non-tender, soft Musculoskeletal: swelling (Anasarca mild to moderate) Extremities: edema (Anasarca mild to moderate), normal pulses Neurological: other (Minimally responsive off sedation) Results Result Diagram: 03/03/17 0458 03/03/17 0458 Results 24 hrs Laboratory Tests Test 03/02/17 10:44 03/02/17 12:48 03/02/17 17:26 03/02/17 23:51 Sodium Level 129 L Potassium Level 4.7 Chloride Level 98 Carbon Dioxide Level 19 L Anion Gap 17 H Blood Urea Nitrogen 54 H Creatinine 1.90 H Glucose Level 55 L Calcium Level 7.4 L Bedside Glucose 106 112 114 Test 03/03/17 00:10 03/03/17 04:58 03/03/17 05:34 03/03/17 09:28 Vancomycin Level Trough 18.7 White Blood Count 6.1 Red Blood Count 2.56 L Hemoglobin 7.1 L Hematocrit 21.8 L Mean Corpuscular Volume 85.2 Mean Corpuscular Hemoglobin 27.7 L Mean Corpuscular Hemoglobin Concent 32.6 Red Cell Distribution Width 18.9 H Platelet Count 108 L Mean Platelet Volume 13.1 H Neutrophils % 56.6 Lymphocytes % 34.5 Monocytes % 5.0 Eosinophils % 2.1 Basophils % 0.3 Nucleated Red Blood Cells % 0.3 H Neutrophils # 3.5 Lymphocytes # 2.1 Monocytes # 0.3 Eosinophils # 0.1 Basophils # 0.0 Nucleated Red Blood Cells # 0.0 Prothrombin Time 17.7 H Prothrombin Time Ratio 1.4 INR International Normalized Ratio 1.45 Activated Partial Thromboplast Time 43.2 H Sodium Level 134 L Potassium Level 4.1 Chloride Level 103 Carbon Dioxide Level 21 Anion Gap 14 Blood Urea Nitrogen 48 H Creatinine 1.55 H Glucose Level 101 # Calcium Level 7.3 L Phosphorus Level 7.6 H Magnesium Level 1.8 Total Bilirubin 6.8 H Direct Bilirubin 5.80 H Indirect Bilirubin 1.0 Aspartate Amino Transf (AST/SGOT) 43 Alanine Aminotransferase (ALT/SGPT) 30 Alkaline Phosphatase 324 H Total Protein 5.5 L Albumin 1.8 L Globulin 3.70 H Albumin/Globulin Ratio 0.48 Bedside Glucose 98 112 Medications Medications Current Medications Ondansetron HCl (Zofran Inj) 4 mg Q6H PRN IV NAUSEA AND/OR VOMITING Last administered on 02/13/17 00:36; Admin Dose 4 MG; Start 02/11/17 at 10:00 Acetaminophen (Tylenol Tab) 650 mg Q6H PRN PO PAIN LEVEL 1-3 OR FEVER Last administered on 02/25/17 19:51; Admin Dose 650 MG; Start 02/11/17 at 10:00 Docusate Sodium (Colace) 100 mg Q12H PRN PO CONSTIPATION; Start 02/11/17 at 10: 00 Bisacodyl (Dulcolax Supp) 10 mg DAILY PRN MD CONSTIPATION; Start 02/11/17 at 10 :00 Miscellaneous Information (Pending Santyl Order For Wound Care) This patient prado... PRN PRN XX WOUND CARE; Start 02/11/17 at 19:00 Collagenase (Santyl) 1 applic DAILY TOP Last administered on 03/02/17 09:25; Admin Dose 1 APPLIC; Start 02/12/17 at 13:30 Diphenhydramine HCl 25 mg 25 mg Q6H PRN IV ITCHING Last administered on 03:22; Admin Dose 25 MG; Start 02/12/17 at 14:00 Total Parenteral Nutrition (Tpn) 1,000 ml @ 40 mls/hr Q24H IV Last administered on 02/25/17 18:53; Admin Dose 40 MLS/HR; Start 02/12/17 at 18:00; Status Future Hold Alprazolam 0.25 mg 0.25 mg Q12H PRN PO ANXIETY Last administered on 02/23/17 02:09; Admin Dose 0.25 MG; Start 02/19/17 at 14:00 Sodium Chloride (NS) 250 ml @ 250 mls/hr Q1H PRN IV abp below 90 Last administered on 02/21/17 20:08; Admin Dose 250 MLS/HR; Start 02/21/17 at 17:30 Pantoprazole (Protonix Iv) 40 mg DAILY@06 IV Last administered on 03/03/17 05: 37; Admin Dose 40 MG; Start 02/23/17 at 06:00 Midodrine (Proamatine) 5 mg TID PO Last administered on 03/02/17 20:46; Admin Dose 5 MG; Start 02/23/17 at 13:30 Lorazepam (Ativan) 0.5 mg Q8H PRN IV AGITATION/ANXIETY; Start 02/23/17 at 13:30 Miscellaneous Information DAILY XX ; Start 02/25/17 at 09:00 Midazolam HCl 50 ml @ 1 mls/hr TITRATE IV Last administered on 02/25/17 22:54 ; Admin Dose 2 MLS/HR; Start 02/25/17 at 10:00 Fentanyl 100 ml @ 2.5 mls/hr TITRATE IV Last administered on 02/25/17 10:43; Admin Dose 2.5 MLS/HR; Start 02/25/17 at 10:00 Caspofungin 50 mg/ Sodium Chloride 250 ml @ 250 mls/hr Q24H IVPB Last administered on 03/02/17 15:25; Admin Dose 250 MLS/HR; Start 02/27/17 at 14:30 Norepinephrine 32 mg/Dextrose 500 ml @ 0 mls/hr TITRATE IV Last administered on 03/02/17 11:44; Admin Dose 20.62 MLS/HR; Start 02/28/17 at 11:30 Phenylephrine HCl 80 mg/Dextrose 500 ml @ 0 mls/hr TITRATE IV Last administered on 02/28/17 14:18; Admin Dose 7.5 MLS/HR; Start 02/28/17 at 11:30 Vancomycin HCl 750 mg/Dextrose/ Water 150 ml @ 75 mls/hr Q48H IVPB Last administered on 03/03/17 01:13; Admin Dose 75 MLS/HR; Start 03/03/17 at 01:00 Meropenem/Sodium Chloride 50 ml @ 100 mls/hr Q24H IVPB Last administered on 20:47; Admin Dose 100 MLS/HR; Start 03/01/17 at 21:00 Dextrose/Sodium Chloride (D5-NS) 1,000 ml @ 75 mls/hr [id number] IV Last administered on 03/03/17 01:14; Admin Dose 75 MLS/HR; Start 03/02/17 at 12:30 Miscellaneous Information 1 ea NOTE XX ; Start 03/02/17 at 12:30 Glucose (Glutose) 15 gm Q15M PRN PO DECREASED GLUCOSE; Start 03/02/17 at 12:30 Glucose (Glutose) 22.5 gm Q15M PRN PO DECREASED GLUCOSE; Start 03/02/17 at 12: 30 Dextrose (D50w Syringe) 25 ml Q15M PRN IV DECREASED GLUCOSE Last administered on 03/02/17 12:18; Admin Dose 25 ML; Start 03/02/17 at 12:30 Dextrose (D50w Syringe) 50 ml Q15M PRN IV DECREASED GLUCOSE; Start 03/02/17 at 12:30 Glucagon (Glucagen) 1 mg Q15M PRN IM DECREASED GLUCOSE; Start 03/02/17 at 12:30 Glucose (Glutose) 15 gm Q15M PRN BUCCAL DECREASED GLUCOSE; Start 03/02/17 at 12 :30 Morphine Sulfate (morphine) 2 mg Q4H PRN IV PAIN LEVEL 7-10; Start 03/02/17 at 14:00 BONIFACIO COWART Mar 03, 2017 09:48
--- NOTE | 2017-03-03 12:08 | PN ---
Date/Time of Note Date/Time of Note DATE: 03/03/17 TIME: 12:07 Assessment/Plan VTE Prophylaxis VTE Prophylaxis Intervention: other Lines/Catheters IV Catheter Type (from Nrs): PICC Line Central line still needed: No Urinary Cath still in place: No Assessment/Plan Chief Complaint/Hosp Course Additional Assessment/Plan Respiratory failure Pancreatitis Infected PICC line Patient will be needing a central line However the son has refused a central line placement We will proceed with placement of a central line when son is agreeable Problems: Subjective 24 Hr Interval Summary Gastrointestinal: no complaints Genitourinary: no complaints Musculoskeletal: no complaints Skin: no complaints Neurologic: no complaints Exam/Review of Systems Vital Signs Vitals Vital Signs Date Time Temp Pulse Resp B/P Pulse Ox O2 Delivery O2 Flow Rate FiO2 03/03/17 09:25 88 16 100 40 03/03/17 06:15 91/50 Mechanical Ventilator 03/03/17 04:00 96.9 Intake and Output 03/02/17 03/02/17 03/03/17 14:59 22:59 06:59 Intake Total 239.8 ml 1064.90 ml 908.41 ml Output Total 30 ml 128 ml 347 ml Balance 209.8 ml 936.90 ml 561.41 ml Exam Neck: non-tender, supple Respiratory: clear to auscultation, normal air movement Cardiovascular: nl pulses, regular rate and rhythm Gastrointestinal: nl liver, spleen, non-tender, soft Results Result Diagram: 03/03/17 0458 03/03/17 0458 Results 24 hrs Laboratory Tests Test 03/02/17 12:48 03/02/17 17:26 03/02/17 23:51 03/03/17 00:10 Bedside Glucose 106 112 114 Vancomycin Level Trough 18.7 Test 03/03/17 04:58 03/03/17 05:34 03/03/17 09:28 White Blood Count 6.1 Red Blood Count 2.56 L Hemoglobin 7.1 L Hematocrit 21.8 L Mean Corpuscular Volume 85.2 Mean Corpuscular Hemoglobin 27.7 L Mean Corpuscular Hemoglobin Concent 32.6 Red Cell Distribution Width 18.9 H Platelet Count 108 L Mean Platelet Volume 13.1 H Neutrophils % 56.6 Lymphocytes % 34.5 Monocytes % 5.0 Eosinophils % 2.1 Basophils % 0.3 Nucleated Red Blood Cells % 0.3 H Neutrophils # 3.5 Lymphocytes # 2.1 Monocytes # 0.3 Eosinophils # 0.1 Basophils # 0.0 Nucleated Red Blood Cells # 0.0 Prothrombin Time 17.7 H Prothrombin Time Ratio 1.4 INR International Normalized Ratio 1.45 Activated Partial Thromboplast Time 43.2 H Sodium Level 134 L Potassium Level 4.1 Chloride Level 103 Carbon Dioxide Level 21 Anion Gap 14 Blood Urea Nitrogen 48 H Creatinine 1.55 H Glucose Level 101 # Calcium Level 7.3 L Phosphorus Level 7.6 H Magnesium Level 1.8 Total Bilirubin 6.8 H Direct Bilirubin 5.80 H Indirect Bilirubin 1.0 Aspartate Amino Transf (AST/SGOT) 43 Alanine Aminotransferase (ALT/SGPT) 30 Alkaline Phosphatase 324 H Total Protein 5.5 L Albumin 1.8 L Globulin 3.70 H Albumin/Globulin Ratio 0.48 Bedside Glucose 98 112 Medications Medications Current Medications Ondansetron HCl (Zofran Inj) 4 mg Q6H PRN IV NAUSEA AND/OR VOMITING Last administered on 02/13/17 00:36; Admin Dose 4 MG; Start 02/11/17 at 10:00 Acetaminophen (Tylenol Tab) 650 mg Q6H PRN PO PAIN LEVEL 1-3 OR FEVER Last administered on 02/25/17 19:51; Admin Dose 650 MG; Start 02/11/17 at 10:00 Docusate Sodium (Colace) 100 mg Q12H PRN PO CONSTIPATION; Start 02/11/17 at 10: 00 Bisacodyl (Dulcolax Supp) 10 mg DAILY PRN [place] CONSTIPATION; Start 02/11/17 at 10 :00 Miscellaneous Information (Pending Santyl Order For Wound Care) This patient prado... PRN PRN XX WOUND CARE; Start 02/11/17 at 19:00 Collagenase (Santyl) 1 applic DAILY TOP Last administered on 03/03/17 09:49; Admin Dose 1 APPLIC; Start 02/12/17 at 13:30 Diphenhydramine HCl 25 mg 25 mg Q6H PRN IV ITCHING Last administered on 03:22; Admin Dose 25 MG; Start 02/12/17 at 14:00 Total Parenteral Nutrition (Tpn) 1,000 ml @ 40 mls/hr Q24H IV Last administered on 02/25/17 18:53; Admin Dose 40 MLS/HR; Start 02/12/17 at 18:00; Status Future Hold Alprazolam 0.25 mg 0.25 mg Q12H PRN PO ANXIETY Last administered on 02/23/17 02:09; Admin Dose 0.25 MG; Start 02/19/17 at 14:00 Sodium Chloride (NS) 250 ml @ 250 mls/hr Q1H PRN IV abp below 90 Last administered on 02/21/17 20:08; Admin Dose 250 MLS/HR; Start 02/21/17 at 17:30 Pantoprazole (Protonix Iv) 40 mg DAILY@06 IV Last administered on 03/03/17 05: 37; Admin Dose 40 MG; Start 02/23/17 at 06:00 Midodrine (Proamatine) 5 mg TID PO Last administered on 03/03/17 12:06; Admin Dose 5 MG; Start 02/23/17 at 13:30 Lorazepam (Ativan) 0.5 mg Q8H PRN IV AGITATION/ANXIETY; Start 02/23/17 at 13:30 Miscellaneous Information DAILY XX ; Start 02/25/17 at 09:00 Midazolam HCl 50 ml @ 1 mls/hr TITRATE IV Last administered on 02/25/17 22:54 ; Admin Dose 2 MLS/HR; Start 02/25/17 at 10:00 Fentanyl 100 ml @ 2.5 mls/hr TITRATE IV Last administered on 02/25/17 10:43; Admin Dose 2.5 MLS/HR; Start 02/25/17 at 10:00 Caspofungin 50 mg/ Sodium Chloride 250 ml @ 250 mls/hr Q24H IVPB Last administered on 03/02/17 15:25; Admin Dose 250 MLS/HR; Start 02/27/17 at 14:30 Norepinephrine 32 mg/Dextrose 500 ml @ 0 mls/hr TITRATE IV Last administered on 03/03/17 12:05; Admin Dose 17.81 MLS/HR; Start 02/28/17 at 11:30 Phenylephrine HCl 80 mg/Dextrose 500 ml @ 0 mls/hr TITRATE IV Last administered on 02/28/17 14:18; Admin Dose 7.5 MLS/HR; Start 02/28/17 at 11:30 Vancomycin HCl 750 mg/Dextrose/ Water 150 ml @ 75 mls/hr Q48H IVPB Last administered on 03/03/17 01:13; Admin Dose 75 MLS/HR; Start 03/03/17 at 01:00 Meropenem/Sodium Chloride 50 ml @ 100 mls/hr Q24H IVPB Last administered on 20:47; Admin Dose 100 MLS/HR; Start 03/01/17 at 21:00 Dextrose/Sodium Chloride (D5-NS) 1,000 ml @ 75 mls/hr [id number] IV Last administered on 03/03/17 01:14; Admin Dose 75 MLS/HR; Start 03/02/17 at 12:30 Miscellaneous Information 1 ea NOTE XX ; Start 03/02/17 at 12:30 Glucose (Glutose) 15 gm Q15M PRN PO DECREASED GLUCOSE; Start 03/02/17 at 12:30 Glucose (Glutose) 22.5 gm Q15M PRN PO DECREASED GLUCOSE; Start 03/02/17 at 12: 30 Dextrose (D50w Syringe) 25 ml Q15M PRN IV DECREASED GLUCOSE Last administered on 03/02/17 12:18; Admin Dose 25 ML; Start 03/02/17 at 12:30 Dextrose (D50w Syringe) 50 ml Q15M PRN IV DECREASED GLUCOSE; Start 03/02/17 at 12:30 Glucagon (Glucagen) 1 mg Q15M PRN IM DECREASED GLUCOSE; Start 03/02/17 at 12:30 Glucose (Glutose) 15 gm Q15M PRN BUCCAL DECREASED GLUCOSE; Start 03/02/17 at 12 :30 Morphine Sulfate (morphine) 2 mg Q4H PRN IV PAIN LEVEL 7-10; Start 03/02/17 at 14:00 LUIZ SEQUEIRA MD Mar 03, 2017 12:08
--- NOTE | 2017-03-03 15:14 | QN ---
Documentation Comment I had a discussion with the patient's DPOA and son, Jesus as he apparently reported that he did not get any updates recently. I met with Jesus at first outside of the room in the outside ICU waiting area then we had to move in 1 of the ICU waiting room in the second floor as it was very difficult to calm the exchange information in a reasonable way and our conversation seemed to even upset of the family members waiting outside. He again claims that he has not talked to any doctors, not remembering that he had a at least one hour discussion this past . He claims that PICC line insertion was discussed but no central line insertion discussed. This is despite the fact that again, 1 Hour discussion and he was given a choice between PICC line reinsertion and a central line insertion. I also informed him then that after discussion of PICC line insertion with the PICC line team it was ill-advised to reinsert PICC line while the patient still had candidemia/ fungemia and a better option would be to place central line that would have to be done by a vascular surgeon. Per vascular surgery note the patient' son kept refusing placement of the central line. Today he is claiming that he refused it because he did not have enough information but still digressing from any topic related to the patient current care and keeps going back to previous admission at other hospitals, speculations , assumptions, accusations and paranoia regarding the patient's previous admissions at other hospitals. On our previous discussion on , 02/26, he had multiple questions most of the time digressing from the current patient's care which made it very difficult for him to focus on the current decision making he is being asked to do, he finally agreed to let the medical decision to the medical team, went home and change his mind. He claims he changed his mind after researching central lines because he could not get any answers for anybody from the medical team and was not given any information regarding central line. This is after he had a discussion with myself, multiple nurses throughout the past 4 days. Today, I met with him to just give him an update regarding the patient's current condition and prognosis, I gave him the medical information, he started complaining that I am only giving him facts, he again started digressing towards previous admissions at other hospitals, and complaining about the fact that central line placement was not discussed with him, and because of that a central line was not placed. He basically tried to blame the medical team for not placing the central line in a kind of twisted way. He kept asking the same questions but not listening for the answer or dismissing the answers he was given, he kept digressing towards previous admissions and sometimes completely off topic that has nothing to do with the patient care presently or previously, has nothing to do with current discussion or related to his own past medical problems. I had the RN currently taking care of the patient present for the discussion, she has tried to refocus the DPOA as much as possible and so did I. After 2 hours hopefully he seems to have understood what the current clinical picture was and the fact that the prognosis is still fair to poor. I have communicated to him that the patient still have the old PICC line which I do believe is the source of the current candidemia along with TPN. She does understand that the patient is currently considered moderately to severely encephalopathic as she is only responding to noxious stimuli. He still has not given his consent for central line placement and removal of the old PICC line. He seems to indicate that he would only agree to placement of a new PICC line and I had to explain to him many times that this cannot be done while the patient is still fungemic, I told him we will follow-up on the blood cultures drawn yesterday and readdress again new PICC line placement at that time. He still would not give a consent for central line placement. This was yet again a very difficult conversation with this patient's DPOA as again I am convinced that because of his ongoing paranoia and difficulty focusing on the present care and even the patient at times, I really do question his suitability to make appropriate, informed decisions for the patient and yet he does have signed and notarized medical DPOA paperwork verified by social insurance adviser. BONIFACIO COWART Mar 03, 2017 15:10
[2017-03-03] MEDS: CASPOFUNGIN 50 MG in SOD CHLORIDE 0.9% 250 ML IVPB SCH (15:28)
--- NOTE | 2017-03-03 16:45 | PN ---
Date/Time of Note Date/Time of Note DATE: 03/03/17 TIME: 16:42 Assessment/Plan VTE Prophylaxis VTE Prophylaxis Intervention: contraindicated VTE Contraindication Reason: bleeding Lines/Catheters IV Catheter Type (from Nrs): PICC Line Central line still needed: Yes Urinary Cath still in place: Yes Reason Cath still needed: urinary retention Assessment/Plan Assessment/Plan Assessment/Plan * Sepsis * Acute respiratory failure management c/o pulmonary * Anemia hemoglobin * Refused EGD * Pancreatitis with Pancreatic pseudocyst/awaiting drainage * Coagulopathy * H/O tube cholecystostomy * H/O ERCP removal of stone with biliary stent * Plan * Continue present regimen * monitor hemoglobin and hematocrit daily and transfuse per protocol * further orders will depend on clinical course * case discussed with DR Hill Subjective 24 Hr Interval Summary Free Text/Dictation * Course reviewed * Latest hemoglobin 7.1 * still on pressors and intubated Exam/Review of Systems Vital Signs Vitals Vital Signs Date Time Temp Pulse Resp B/P Pulse Ox O2 Delivery O2 Flow Rate FiO2 03/03/17 15:28 84 16 100 40 03/03/17 06:15 91/50 Mechanical Ventilator 03/03/17 04:00 96.9 Intake and Output 03/02/17 03/02/17 03/03/17 15:00 23:00 07:00 Intake Total 314.8 ml 1064.92 ml 905.59 ml Output Total 30 ml 160 ml 315 ml Balance 284.8 ml 904.92 ml 590.59 ml Exam Constitutional: frail ENMT: intubated Neck: non-tender, supple Respiratory: crackles/rales, diminished breath sounds Cardiovascular: nl pulses, regular rate and rhythm Gastrointestinal: bowel sounds, distended, non-tender, soft Musculoskeletal: muscle weakness Extremities: pitting pedal edema Neurological: other (sedated) Results Result Diagram: 03/03/17 0458 03/03/17 0458 Results 24 hrs Laboratory Tests Test 03/02/17 17:26 03/02/17 23:51 03/03/17 00:10 03/03/17 04:58 Bedside Glucose 112 114 Vancomycin Level Trough 18.7 White Blood Count 6.1 Red Blood Count 2.56 L Hemoglobin 7.1 L Hematocrit 21.8 L Mean Corpuscular Volume 85.2 Mean Corpuscular Hemoglobin 27.7 L Mean Corpuscular Hemoglobin Concent 32.6 Red Cell Distribution Width 18.9 H Platelet Count 108 L Mean Platelet Volume 13.1 H Neutrophils % 56.6 Lymphocytes % 34.5 Monocytes % 5.0 Eosinophils % 2.1 Basophils % 0.3 Nucleated Red Blood Cells % 0.3 H Neutrophils # 3.5 Lymphocytes # 2.1 Monocytes # 0.3 Eosinophils # 0.1 Basophils # 0.0 Nucleated Red Blood Cells # 0.0 Prothrombin Time 17.7 H Prothrombin Time Ratio 1.4 INR International Normalized Ratio 1.45 Activated Partial Thromboplast Time 43.2 H Sodium Level 134 L Potassium Level 4.1 Chloride Level 103 Carbon Dioxide Level 21 Anion Gap 14 Blood Urea Nitrogen 48 H Creatinine 1.55 H Glucose Level 101 # Calcium Level 7.3 L Phosphorus Level 7.6 H Magnesium Level 1.8 Total Bilirubin 6.8 H Direct Bilirubin 5.80 H Indirect Bilirubin 1.0 Aspartate Amino Transf (AST/SGOT) 43 Alanine Aminotransferase (ALT/SGPT) 30 Alkaline Phosphatase 324 H Total Protein 5.5 L Albumin 1.8 L Globulin 3.70 H Albumin/Globulin Ratio 0.48 Test 03/03/17 05:34 03/03/17 09:28 Bedside Glucose 98 112 Medications Medications Current Medications Ondansetron HCl (Zofran Inj) 4 mg Q6H PRN IV NAUSEA AND/OR VOMITING Last administered on 02/13/17 00:36; Admin Dose 4 MG; Start 02/11/17 at 10:00 Acetaminophen (Tylenol Tab) 650 mg Q6H PRN PO PAIN LEVEL 1-3 OR FEVER Last administered on 02/25/17 19:51; Admin Dose 650 MG; Start 02/11/17 at 10:00 Docusate Sodium (Colace) 100 mg Q12H PRN PO CONSTIPATION; Start 02/11/17 at 10: 00 Bisacodyl (Dulcolax Supp) 10 mg DAILY PRN NC CONSTIPATION; Start 02/11/17 at 10 :00 Miscellaneous Information (Pending Santyl Order For Wound Care) This patient prado... PRN PRN XX WOUND CARE; Start 02/11/17 at 19:00 Collagenase (Santyl) 1 applic DAILY TOP Last administered on 03/03/17 09:49; Admin Dose 1 APPLIC; Start 02/12/17 at 13:30 Diphenhydramine HCl 25 mg 25 mg Q6H PRN IV ITCHING Last administered on 03:22; Admin Dose 25 MG; Start 02/12/17 at 14:00 Total Parenteral Nutrition (Tpn) 1,000 ml @ 40 mls/hr Q24H IV Last administered on 02/25/17 18:53; Admin Dose 40 MLS/HR; Start 02/12/17 at 18:00; Status Future Hold Alprazolam 0.25 mg 0.25 mg Q12H PRN PO ANXIETY Last administered on 02/23/17 02:09; Admin Dose 0.25 MG; Start 02/19/17 at 14:00 Sodium Chloride (NS) 250 ml @ 250 mls/hr Q1H PRN IV abp below 90 Last administered on 02/21/17 20:08; Admin Dose 250 MLS/HR; Start 02/21/17 at 17:30 Pantoprazole (Protonix Iv) 40 mg DAILY@06 IV Last administered on 03/03/17 05: 37; Admin Dose 40 MG; Start 02/23/17 at 06:00 Midodrine (Proamatine) 5 mg TID PO Last administered on 03/03/17 12:06; Admin Dose 5 MG; Start 02/23/17 at 13:30 Lorazepam (Ativan) 0.5 mg Q8H PRN IV AGITATION/ANXIETY; Start 02/23/17 at 13:30 Miscellaneous Information DAILY XX ; Start 02/25/17 at 09:00 Midazolam HCl 50 ml @ 1 mls/hr TITRATE IV Last administered on 02/25/17 22:54 ; Admin Dose 2 MLS/HR; Start 02/25/17 at 10:00 Fentanyl 100 ml @ 2.5 mls/hr TITRATE IV Last administered on 02/25/17 10:43; Admin Dose 2.5 MLS/HR; Start 02/25/17 at 10:00 Caspofungin 50 mg/ Sodium Chloride 250 ml @ 250 mls/hr Q24H IVPB Last administered on 03/03/17 15:28; Admin Dose 250 MLS/HR; Start 02/27/17 at 14:30 Norepinephrine 32 mg/Dextrose 500 ml @ 0 mls/hr TITRATE IV Last administered on 03/03/17 12:05; Admin Dose 17.81 MLS/HR; Start 02/28/17 at 11:30 Phenylephrine HCl 80 mg/Dextrose 500 ml @ 0 mls/hr TITRATE IV Last administered on 02/28/17 14:18; Admin Dose 7.5 MLS/HR; Start 02/28/17 at 11:30 Vancomycin HCl 750 mg/Dextrose/ Water 150 ml @ 75 mls/hr Q48H IVPB Last administered on 03/03/17 01:13; Admin Dose 75 MLS/HR; Start 03/03/17 at 01:00 Meropenem/Sodium Chloride 50 ml @ 100 mls/hr Q24H IVPB Last administered on 20:47; Admin Dose 100 MLS/HR; Start 03/01/17 at 21:00 Dextrose/Sodium Chloride (D5-NS) 1,000 ml @ 75 mls/hr [id number] IV Last administered on 03/03/17 01:14; Admin Dose 75 MLS/HR; Start 03/02/17 at 12:30 Miscellaneous Information 1 ea NOTE XX ; Start 03/02/17 at 12:30 Glucose (Glutose) 15 gm Q15M PRN PO DECREASED GLUCOSE; Start 03/02/17 at 12:30 Glucose (Glutose) 22.5 gm Q15M PRN PO DECREASED GLUCOSE; Start 03/02/17 at 12: 30 Dextrose (D50w Syringe) 25 ml Q15M PRN IV DECREASED GLUCOSE Last administered on 03/02/17 12:18; Admin Dose 25 ML; Start 03/02/17 at 12:30 Dextrose (D50w Syringe) 50 ml Q15M PRN IV DECREASED GLUCOSE; Start 03/02/17 at 12:30 Glucagon (Glucagen) 1 mg Q15M PRN IM DECREASED GLUCOSE; Start 03/02/17 at 12:30 Glucose (Glutose) 15 gm Q15M PRN BUCCAL DECREASED GLUCOSE; Start 03/02/17 at 12 :30 Morphine Sulfate (morphine) 2 mg Q4H PRN IV PAIN LEVEL 7-10; Start 03/02/17 at 14:00 LUZMARIA SPAIN NP Mar 03, 2017 16:45
--- NOTE | 2017-03-03 18:34 | CONS ---
Date/Time of Note Date/Time of Note DATE: 03/03/17 TIME: 18:18 Assessment/Plan Assessment/Plan Chief Complaint/Hosp Course ID PROGRESS NOTE TOTAL ABX DAY #6 => VANCO IV + MERREM + Cancidas 24H INTERVAL SUMMARY * Sepsis, fevers continue -> plan is for central line w/removal of PICC * Awaiting son decision -- per Dr. Cowart, lengthy discussions with son who is difficult to communicate due to son's tangential interjections, he requires lengthy explanations of why central line placement is recommended as best chance to clear the fungemia rather than PICC -- due to high risk of cross contamination if alternative PICC in place in other arm prior to removal of current picc -- as both PICC lines will end up touching each other in the returning superior vena cava venous return -- BEST OPTION is to place a central line temporarily in the groin vs alternative side to PICC in the IJ where the tip will NOT come in contact with the infected PICC external "fibrin sheath" that is likely growing yeast, despite the repeat BCx (-). Son was given this information last week, son declined at that time to have central line -- apparently due to advise he got from personal contact warning him that patient did not need "ports" placed. Concern son has limited attention span, prefers to make decisions based on recommendations from others who are not directly briefed by those attending to his mother. Per Dr. Cowart, another lengthy discussion with son where son was told must have central line due to need for VASOPRESSORS which are vesicants and must infuse through central line. As reported, another long conversation with the son where he was explained rational for CENTRAL LINE RECOMMENDED OVER PICC LINE -- at the end of this conversation patient asked...."Why don't we just place another peripheral line. " -- According the nurses comments, son has demonstrated behaviors, comments, limits in his attention, and tangential interruptions while disregarding the medical recommendations, preferring to keep up this debate rather than listening to and accepting the recommendation from providers. Of concern to the staff, the son now demonstrates selective memory where he does not remember discussions about the need for new line. Overall, there is a staff concern that he has been cavalier about provider recommendations, not taking them seriously. * WBC down today * Sepsis => (+)Yeast UTI (+)Yeast BCx = Fungemia due to Infected PICC line + UTI * 02/28/17 repeat BCx (+) Dontrell: 02/28/17-922 Source: BLOOD BLOOD CULTURE Preliminary BCULT GRAM BOTTLE 1 Yeast . seen on gram stain of the broth Organism 1 YEAST GENERAL: Elderly lady on mechanical ventilation orally intubated. VITAL SIGNS: see below. HEENT: Unremarkable ETT-> secure to Vent CARDIAC: S1, S2, 1/6 systolic ejection murmur CHEST: Diminished air entry bilaterally. ABDOMEN: Mildly distended. Bowel sounds present no guarding or rebound EXTREMITIES: No cyanosis, clubbing edema +2 NEUROLOGIC: Generalized weakness ID ASSESSMENT 86 yo F with: 1. Sepsis w/Fevers >102.+ 02/24 &, leukocytosis, tachycardia => Disseminated candidiasis * BCx 02/25 (+) YEAST => Infx PICC line * 02/25/17 YEAST UTI 2. Acute hypoxic respiratory failure=> Intubated 02/24 in setting of sepsis 3. Severe pancreatitis with pseudocyst, currently on TPN. 4. Acute on chronic anemia status post blood product transfusion 5. Urinary retention 6. s/p VRE UTI 02/15/17 7. s/p acute kidney injury 8. Venous thromboembolism with episode of DVT, status post IVC filter. Repeat Doppler negative for DVT (+)MRSA Nares screen (+)MRSA Stool colonization (+)VRE Stool colonization INVASIVES: PICC, ETT, OGT ABX ALLERGY: PCN CURRENT ABX: #6 => VANCO IV + MERREM + Cancidas ID RECOMMENDATIONS 1. Continue current broad spectrum IV ABX coverage 2. Repeat BCx still (+)Yeast => Continue Cancidas -> recommendation remains in place; place alternative access and change the PICC line. * Son continues to debate the recommendation to place a central line, then DC the PICC. Apparently now agrees to NEW PICC in alternative line prior to removal of infected PICC vs placement of a Peripheral IV which is contraindicated with vesicant vasopressors. This behavior may or may not be construed as illogical vs paranoia, at least this behavior has become an obstruction to provider attempts to treat critical sepsis with disseminated fungemia. Problems: Consultation Date/Type/Reason Admit Date/Time Feb 11, 2017 at 05:28 Initial Consult Date 02/21/17 Type of Consultation: ID Referring Provider: BONIFACIO COWART Exam/Review of Systems Vital Signs Vitals Vital Signs Date Time Temp Pulse Resp B/P Pulse Ox O2 Delivery O2 Flow Rate FiO2 03/03/17 17:21 80 16 100 40 03/03/17 06:15 91/50 Mechanical Ventilator 03/03/17 04:00 96.9 Intake and Output 03/02/17 03/02/17 03/03/17 15:00 23:00 07:00 Intake Total 314.8 ml 1064.92 ml 905.59 ml Output Total 30 ml 160 ml 315 ml Balance 284.8 ml 904.92 ml 590.59 ml Results Result Diagram: 03/03/17 0458 03/03/17 0458 Results 24 hrs Laboratory Tests Test 03/02/17 23:51 03/03/17 00:10 03/03/17 04:58 03/03/17 05:34 Bedside Glucose 114 98 Vancomycin Level Trough 18.7 White Blood Count 6.1 Red Blood Count 2.56 L Hemoglobin 7.1 L Hematocrit 21.8 L Mean Corpuscular Volume 85.2 Mean Corpuscular Hemoglobin 27.7 L Mean Corpuscular Hemoglobin Concent 32.6 Red Cell Distribution Width 18.9 H Platelet Count 108 L Mean Platelet Volume 13.1 H Neutrophils % 56.6 Lymphocytes % 34.5 Monocytes % 5.0 Eosinophils % 2.1 Basophils % 0.3 Nucleated Red Blood Cells % 0.3 H Neutrophils # 3.5 Lymphocytes # 2.1 Monocytes # 0.3 Eosinophils # 0.1 Basophils # 0.0 Nucleated Red Blood Cells # 0.0 Prothrombin Time 17.7 H Prothrombin Time Ratio 1.4 INR International Normalized Ratio 1.45 Activated Partial Thromboplast Time 43.2 H Sodium Level 134 L Potassium Level 4.1 Chloride Level 103 Carbon Dioxide Level 21 Anion Gap 14 Blood Urea Nitrogen 48 H Creatinine 1.55 H Glucose Level 101 # Calcium Level 7.3 L Phosphorus Level 7.6 H Magnesium Level 1.8 Total Bilirubin 6.8 H Direct Bilirubin 5.80 H Indirect Bilirubin 1.0 Aspartate Amino Transf (AST/SGOT) 43 Alanine Aminotransferase (ALT/SGPT) 30 Alkaline Phosphatase 324 H Total Protein 5.5 L Albumin 1.8 L Globulin 3.70 H Albumin/Globulin Ratio 0.48 Test 03/03/17 09:28 Bedside Glucose 112 Medications Medications Current Medications Ondansetron HCl (Zofran Inj) 4 mg Q6H PRN IV NAUSEA AND/OR VOMITING Last administered on 02/13/17 00:36; Admin Dose 4 MG; Start 02/11/17 at 10:00 Acetaminophen (Tylenol Tab) 650 mg Q6H PRN PO PAIN LEVEL 1-3 OR FEVER Last administered on 02/25/17 19:51; Admin Dose 650 MG; Start 02/11/17 at 10:00 Docusate Sodium (Colace) 100 mg Q12H PRN PO CONSTIPATION; Start 02/11/17 at 10: 00 Bisacodyl (Dulcolax Supp) 10 mg DAILY PRN SD CONSTIPATION; Start 02/11/17 at 10 :00 Miscellaneous Information (Pending Santyl Order For Wound Care) This patient prado... PRN PRN XX WOUND CARE; Start 02/11/17 at 19:00 Collagenase (Santyl) 1 applic DAILY TOP Last administered on 03/03/17 09:49; Admin Dose 1 APPLIC; Start 02/12/17 at 13:30 Diphenhydramine HCl 25 mg 25 mg Q6H PRN IV ITCHING Last administered on 03:22; Admin Dose 25 MG; Start 02/12/17 at 14:00 Total Parenteral Nutrition (Tpn) 1,000 ml @ 40 mls/hr Q24H IV Last administered on 02/25/17 18:53; Admin Dose 40 MLS/HR; Start 02/12/17 at 18:00; Status Future Hold Alprazolam 0.25 mg 0.25 mg Q12H PRN PO ANXIETY Last administered on 02/23/17 02:09; Admin Dose 0.25 MG; Start 02/19/17 at 14:00 Sodium Chloride (NS) 250 ml @ 250 mls/hr Q1H PRN IV abp below 90 Last administered on 02/21/17 20:08; Admin Dose 250 MLS/HR; Start 02/21/17 at 17:30 Pantoprazole (Protonix Iv) 40 mg DAILY@06 IV Last administered on 03/03/17 05: 37; Admin Dose 40 MG; Start 02/23/17 at 06:00 Midodrine (Proamatine) 5 mg TID PO Last administered on 03/03/17 12:06; Admin Dose 5 MG; Start 02/23/17 at 13:30 Lorazepam (Ativan) 0.5 mg Q8H PRN IV AGITATION/ANXIETY; Start 02/23/17 at 13:30 Miscellaneous Information DAILY XX ; Start 02/25/17 at 09:00 Midazolam HCl 50 ml @ 1 mls/hr TITRATE IV Last administered on 02/25/17 22:54 ; Admin Dose 2 MLS/HR; Start 02/25/17 at 10:00 Fentanyl 100 ml @ 2.5 mls/hr TITRATE IV Last administered on 02/25/17 10:43; Admin Dose 2.5 MLS/HR; Start 02/25/17 at 10:00 Caspofungin 50 mg/ Sodium Chloride 250 ml @ 250 mls/hr Q24H IVPB Last administered on 03/03/17 15:28; Admin Dose 250 MLS/HR; Start 02/27/17 at 14:30 Norepinephrine 32 mg/Dextrose 500 ml @ 0 mls/hr TITRATE IV Last administered on 03/03/17 12:05; Admin Dose 17.81 MLS/HR; Start 02/28/17 at 11:30 Phenylephrine HCl 80 mg/Dextrose 500 ml @ 0 mls/hr TITRATE IV Last administered on 02/28/17 14:18; Admin Dose 7.5 MLS/HR; Start 02/28/17 at 11:30 Vancomycin HCl 750 mg/Dextrose/ Water 150 ml @ 75 mls/hr Q48H IVPB Last administered on 03/03/17 01:13; Admin Dose 75 MLS/HR; Start 03/03/17 at 01:00 Meropenem/Sodium Chloride 50 ml @ 100 mls/hr Q24H IVPB Last administered on 20:47; Admin Dose 100 MLS/HR; Start 03/01/17 at 21:00 Dextrose/Sodium Chloride (D5-NS) 1,000 ml @ 75 mls/hr [id number] IV Last administered on 03/03/17 01:14; Admin Dose 75 MLS/HR; Start 03/02/17 at 12:30 Miscellaneous Information 1 ea NOTE XX ; Start 03/02/17 at 12:30 Glucose (Glutose) 15 gm Q15M PRN PO DECREASED GLUCOSE; Start 03/02/17 at 12:30 Glucose (Glutose) 22.5 gm Q15M PRN PO DECREASED GLUCOSE; Start 03/02/17 at 12: 30 Dextrose (D50w Syringe) 25 ml Q15M PRN IV DECREASED GLUCOSE Last administered on 03/02/17t 12:18; Admin Dose 25 ML; Start 03/02/17 at 12:30 Dextrose (D50w Syringe) 50 ml Q15M PRN IV DECREASED GLUCOSE; Start 03/02/17 at 12:30 Glucagon (Glucagen) 1 mg Q15M PRN IM DECREASED GLUCOSE; Start 03/02/17 at 12:30 Glucose (Glutose) 15 gm Q15M PRN BUCCAL DECREASED GLUCOSE; Start 03/02/17 at 12 :30 Morphine Sulfate (morphine) 2 mg Q4H PRN IV PAIN LEVEL 7-10; Start 03/02/17 at 14:00 DEBORA WILLOUGHBY NP Mar 03, 2017 18:33
[2017-03-03] MEDS: MEROPENEM 500MG/50 ML (PMX) 50 ML IVPB SCH (20:41)
[2017-03-04] VITALS (105 sets, daily range): BP systolic 72–136; BP diastolic 35–98; PULSE 70–92; RESP 11–21
[2017-03-04] MEDS: DEXTROSE 5%-0.9% NACL 1,000 ML IV SCH ×3 (00:30→17:50)
[2017-03-04] MEDS: PANTOPRAZOLE 40 MG INJ IV SCH (05:58)
[2017-03-04 06:20] LABS: CALCIUM 7.4 mg/dl (8.4-10.2); CREATININE 1.12 mg/dl (0.44-1.00); POTASSIUM 3.7 mmol/L (3.5-5.1)
[2017-03-04 06:23] LABS: MAGNESIUM 1.7 mg/dl (1.7-2.5); PHOSPHORUS 6.8 mg/dl (2.5-4.9)
[2017-03-04 07:14] LABS: ABNORMAL IP MESSAGE 1; BASOPHILS % 0.3 % (0.0-2.0); EOSINOPHILS # 0.2 10^3/ul (0.0-0.5); EOSINOPHILS % 2.3 % (0.0-7.0); HEMOGLOBIN 7.1 g/dl (12.0-16.0); LYMPHOCYTES # 2.6 10^3/ul (0.8-2.9); LYMPHOCYTES % 36.1 % (15.0-51.0); MEAN CORPUSCULAR HEMOGLOBIN 27.7 pg (29.0-33.0); MEAN CORPUSCULAR HGB CONC 32.4 g/dl (32.0-37.0); MEAN CORPUSCULAR VOLUME 85.5 fl (82.0-101.0); MONOCYTE # 0.4 10^3/ul (0.3-0.9); MONOCYTES % 5.1 % (0.0-11.0); NEUTROPHIL # 3.9 10^3/ul (1.6-7.5); NEUTROPHILS % 55.2 % (39.0-77.0); PLATELET COUNT 119 10^3/UL (140-415); RED BLOOD COUNT 2.56 10^6/ul (4.20-5.40); RED CELL DISTRIBUTION WIDTH 19.3 % (11.5-14.5); WHITE BLOOD COUNT 7.1 10^3/ul (4.8-10.8)
[2017-03-04 07:15] LABS: HEMATOCRIT 21.9 % (37.0-47.0); POSITIVE DIFF @See below
[2017-03-04] MEDS: ALBUTEROL 18 GM INHALER INH SCH ×3 (07:27→23:34)
[2017-03-04] MEDS: IPRATROPIUM (HFA) 12.9 GM INHALER INH SCH ×3 (07:27→23:34)
[2017-03-04] MEDS: [UNRECOGNIZED DRUG - REMARK] XX SCH (09:00)
--- NOTE | 2017-03-04 09:17 | PN ---
Date/Time of Note Date/Time of Note DATE: 03/04/17 TIME: 09:10 Assessment/Plan VTE Prophylaxis VTE Prophylaxis Intervention: SCD's Lines/Catheters IV Catheter Type (from Nrs): PICC Line Central line still needed: Yes (for IV abx and IV access ) Urinary Cath still in place: Yes Reason Cath still needed: other (indicate) ([facility]ER[facility]) Assessment/Plan Assessment/Plan 86 yo female with: 1. Acute Respiratory failure, in setting of pleural effusions, atelectasis, severe anemia and Norbert glabrata fungemia. Poor overall clinical status. Patient in ICU on mechanical ventilation due to deteriorating respiratory status and pressor x1. CXR with pulmonary vascular congestion, small to moderate pleural effusions even s/p thoracentesis 02/20 with -300 cc and another right thoracentesis 02/23 with removal of less than 100 cc, Continue Vancomycin, Meropenem and Cancidas. On mechanical ventilation, FiO2 down to 40%, continue to monitor, pulmonary following. 2. Sepsis and Septic shock, from Norbert glabrata fungemia and septicemia . She does have a risk factors but this is the first time her blood cultures are growing yeast, she has been on Diflucan throughout her admission and at discharge from the outside hospital. Patient has been now switched to Cancidas as of last week. PICC line needs to be changed, ideally it should be removed and replaced in the next 2-3 days however we do need IV access for her pressors at least. Therefore after discussion with infectious disease the plan is to remove the PICC line from one extremity and place a central line which the son did agree with at first then refused central line placement. Repeat blood cultures 02/28 with 1/2 blood cultures still positive with norbert glabrata, it is unclear if it is culture from the PICC line or peripheral. Repeat blood cultures again 03/02, 1 from PICC line and one from peripheral so far NGTD. Patient still have the same PICC line. Continue Cancidas, Dr. Murphy from infectious diseases following. Patient is currently intubated, off sedation 5 days and slightly more responsive today. On 1 pressor, Levophed down to 16 mcg/min. 3. S/p Severe pancreatitis with pseudocyst, holding TPN in setting of persistent candidemia. Will attempt tube feeding. CAT scan of the abdomen and pelvis has been compared to the one done at [facility] approximately 3 weeks ago, cholecystostomy tube has been removed however there is concern as the patient has a new fluid collection in addition of the previous pseudocyst also previous pseudocyst seems to have increased in size and there is concern for possible infection. We were planing for drainage of 2nd cyst since admission, but INR at 1.4 and patient clinically declined further now intubated and on 1 pressor with ongoing sepsis. Per Surgery note last week, ? bleeding in pseudocyst but patient was not stable to get bleeding scan due to fact she was on BiPAP Continue Meropenem, Vancomycin and Cancidas. Follow-up infectious disease recommendations today. 4. Acute on chronic anemia status post blood product transfusion at least twice during this admission, Hb at 7.1 for now and platelets in the 100's now. Transfuse if Hb<7 Patient seems to have been in DIC with elevated Direct bili, DDimmer ... Bleeding scan was not done due to respiratory distress and needs for continuous BiPAP, she is now intubated however still having hemodynamic instability GI following. No signs of acute bleeding so far however patient does have positive fecal occult blood. Appreciate GI consult, patient and her son declined EGD prior. Appreciate recommendations of Dr Hannah, may still needs CT guided drainage of 2nd pseudocyst by IR, however patient now with hemodynamic instability and intubated, likely also coagulopathic from a septic state, not a candidate for IR procedure currently. 5. Hypotension/septic shock Based on records patient has been actually put on midodrine 5 mg p.o. tid due to ongoing hypotension even at discharge from [place] at [place], Now the patient intubated, and septic with candidemia with Norbert glabrata, continue Levophed for blood pressure support may be able to titrate even further as patient responding to albumin and IV fluids of note she still getting Midodrine per OGT Continue current antibiotics, appreciate infectious disease assistance Poor prognosis 6. Acute kidney injury, in setting of septic shock and ongoing candidemia. Urine output picked up yesterday and renal function has improved while getting to daily boluses of albumin x 3 days now and on IV fluids Continue D5NS at 75 cc/hr and also repeating albumin bolus today. Anasarca is noted that the patient needs intravascular volume repletion with IV fluids and occasional albumin boluses to try to preserve her renal function as much as possible Norbert glabrata positive urine culture last week, Elder catheter has been changed 7. Hyponatremia, Nutrition: Resolving, will start tube feeding if possible We had to hold off TPN due to current fungemia. Infected PICC line still in place due to refusal of son to change it. Appreciate nephrology assistance from Dr. Partida 8. Sinus Tachycardia: Per report from [facility] patient has sinus tachycardia. Resolved as patient in less distress currently after intubation and sedation. 9. Venous thromboembolism with episode of DVT, status post IVC filter. Repeat Doppler negative for DVT 10. Mild coagulopathy: PTT wnl, Vitamin K and FFP as needed for INR 1.4 but to be noted patient with VTE, s/p IVC filter. Current coagulopathy likely related to DIC. Monitor. Prophylaxis: Protonix for GI prophylaxis, SCDs and status post IVC filter for DVT prophylaxis Disposition: ICU now, intubated on mechanical ventilation , attempted repeat thoracentesis right pleural effusion with very minimal output. Now with fungemia Pending CT chest but unable to perform due to patient's hemodynamic instability Patient's prognosis is even worse with findings of candidemia with Norbert glabrata, son updated at length last week and again yesterday while also attempting to explain and obtain consent again for central line placement and removal of the current PICC line which is likely infected with Norbert glabrata based on cultures and also recommendation from internal medicine, infectious disease and critical care. The son has refused to give consent so far and mostly disagrees, when it suits him, with the current assessment from the treatment team that the patient is critically ill and unfortunately likely not recover from this episode. Full code per son and Jesus SANTANA. Subjective 24 Hr Interval Summary Free Text/Dictation Patient hemodynamically and clinically slightly improved, down to Levophed 16 mcg/min, urine output improved with renal function improved while on D5 normal saline and also getting daily albumin boluses so far for the past 3 days Laboratory data otherwise remaining stable, hemoglobin of 7.1 No signs of acute bleeding externally. Repeat blood cultures NGTD for 24 hour Patient remains afebrile, she seems to be more responsive today, not just to nauseous stimuli, she is moving with light touch and attempting to open her eyes when calling her name. Exam/Review of Systems Vital Signs Vitals Vital Signs Date Time Temp Pulse Resp B/P Pulse Ox O2 Delivery O2 Flow Rate FiO2 03/04/17 08:00 79 03/04/17 06:45 14 92/56 100 03/04/17 06:30 Mechanical Ventilator 03/04/17 05:15 40 03/04/17 04:00 97.8 Intake and Output 03/03/17 03/03/17 03/04/17 15:00 23:00 07:00 Intake Total 760.2 ml 768.08 ml 630.93 ml Output Total 280 ml 330 ml 294 ml Balance 480.2 ml 438.08 ml 336.93 ml Exam Constitutional: frail, other (more responsive, trying to open eyes to voice/ name, intubated and off sedation x 5 days now ) Respiratory: diminished breath sounds (bases ), other (on vent 40% FiO2) Cardiovascular: nl pulses, regular rate and rhythm Gastrointestinal: non-tender, soft Musculoskeletal: swelling (anasarca ) Extremities: normal pulses, other (anasarca) Neurological: lethargic, other (a little more responsive ) Results Result Diagram: 03/04/17 0455 03/04/17 0455 Results 24 hrs Laboratory Tests Test 03/03/17 09:28 03/03/17 18:50 03/03/17 22:03 03/04/17 00:50 Bedside Glucose 112 96 102 107 Test 03/04/17 04:55 White Blood Count 7.1 Red Blood Count 2.56 L Hemoglobin 7.1 L Hematocrit 21.9 L Mean Corpuscular Volume 85.5 Mean Corpuscular Hemoglobin 27.7 L Mean Corpuscular Hemoglobin Concent 32.4 Red Cell Distribution Width 19.3 H Platelet Count 119 L Mean Platelet Volume 14.0 H Neutrophils % 55.2 Lymphocytes % 36.1 Monocytes % 5.1 Eosinophils % 2.3 Basophils % 0.3 Nucleated Red Blood Cells % 0.0 Neutrophils # 3.9 Lymphocytes # 2.6 Monocytes # 0.4 Eosinophils # 0.2 Basophils # 0.0 Nucleated Red Blood Cells # 0.0 Sodium Level 136 Potassium Level 3.7 Chloride Level 103 Carbon Dioxide Level 21 Anion Gap 16 Blood Urea Nitrogen 42 H Creatinine 1.12 H Glucose Level 97 Calcium Level 7.4 L Phosphorus Level 6.8 H Magnesium Level 1.7 Medications Medications Current Medications Ondansetron HCl (Zofran Inj) 4 mg Q6H PRN IV NAUSEA AND/OR VOMITING Last administered on 02/13/17 00:36; Admin Dose 4 MG; Start 02/11/17 at 10:00 Acetaminophen (Tylenol Tab) 650 mg Q6H PRN PO PAIN LEVEL 1-3 OR FEVER Last administered on 02/25/17 19:51; Admin Dose 650 MG; Start 02/11/17 at 10:00 Docusate Sodium (Colace) 100 mg Q12H PRN PO CONSTIPATION; Start 02/11/17 at 10: 00 Bisacodyl (Dulcolax Supp) 10 mg DAILY PRN ID CONSTIPATION; Start 02/11/17 at 10 :00 Miscellaneous Information (Pending Santyl Order For Wound Care) This patient prado... PRN PRN XX WOUND CARE; Start 02/11/17 at 19:00 Collagenase (Santyl) 1 applic DAILY TOP Last administered on 03/03/17 09:49; Admin Dose 1 APPLIC; Start 02/12/17 at 13:30 Diphenhydramine HCl 25 mg 25 mg Q6H PRN IV ITCHING Last administered on 03:22; Admin Dose 25 MG; Start 02/12/17 at 14:00 Total Parenteral Nutrition (Tpn) 1,000 ml @ 40 mls/hr Q24H IV Last administered on 02/25/17 18:53; Admin Dose 40 MLS/HR; Start 02/12/17 at 18:00; Status Future Hold Alprazolam 0.25 mg 0.25 mg Q12H PRN PO ANXIETY Last administered on 02/23/17 02:09; Admin Dose 0.25 MG; Start 02/19/17 at 14:00 Sodium Chloride (NS) 250 ml @ 250 mls/hr Q1H PRN IV abp below 90 Last administered on 02/21/17 20:08; Admin Dose 250 MLS/HR; Start 02/21/17 at 17:30 Pantoprazole (Protonix Iv) 40 mg DAILY@06 IV Last administered on 03/04/17 05: 58; Admin Dose 40 MG; Start 02/23/17 at 06:00 Midodrine (Proamatine) 5 mg TID PO Last administered on 03/03/17 20:41; Admin Dose 5 MG; Start 02/23/17 at 13:30 Lorazepam (Ativan) 0.5 mg Q8H PRN IV AGITATION/ANXIETY; Start 02/23/17 at 13:30 Miscellaneous Information DAILY XX ; Start 02/25/17 at 09:00 Midazolam HCl 50 ml @ 1 mls/hr TITRATE IV Last administered on 02/25/17 22:54 ; Admin Dose 2 MLS/HR; Start 02/25/17 at 10:00 Fentanyl 100 ml @ 2.5 mls/hr TITRATE IV Last administered on 02/25/17 10:43; Admin Dose 2.5 MLS/HR; Start 02/25/17 at 10:00 Caspofungin 50 mg/ Sodium Chloride 250 ml @ 250 mls/hr Q24H IVPB Last administered on 03/03/17 15:28; Admin Dose 250 MLS/HR; Start 02/27/17 at 14:30 Norepinephrine 32 mg/Dextrose 500 ml @ 0 mls/hr TITRATE IV Last administered on 03/03/17 12:05; Admin Dose 17.81 MLS/HR; Start 02/28/17 at 11:30 Phenylephrine HCl 80 mg/Dextrose 500 ml @ 0 mls/hr TITRATE IV Last administered on 02/28/17 14:18; Admin Dose 7.5 MLS/HR; Start 02/28/17 at 11:30 Vancomycin HCl 750 mg/Dextrose/ Water 150 ml @ 75 mls/hr Q48H IVPB Last administered on 03/03/17 01:13; Admin Dose 75 MLS/HR; Start 03/03/17 at 01:00 Meropenem/Sodium Chloride 50 ml @ 100 mls/hr Q24H IVPB Last administered on 20:41; Admin Dose 100 MLS/HR; Start 03/01/17 at 21:00 Dextrose/Sodium Chloride (D5-NS) 1,000 ml @ 75 mls/hr [id number] IV Last administered on 03/04/17 00:30; Admin Dose 75 MLS/HR; Start 03/02/17 at 12:30 Miscellaneous Information 1 ea NOTE XX ; Start 03/02/17 at 12:30 Glucose (Glutose) 15 gm Q15M PRN PO DECREASED GLUCOSE; Start 03/02/17 at 12:30 Glucose (Glutose) 22.5 gm Q15M PRN PO DECREASED GLUCOSE; Start 03/02/17 at 12: 30 Dextrose (D50w Syringe) 25 ml Q15M PRN IV DECREASED GLUCOSE Last administered on 03/02/17t 12:18; Admin Dose 25 ML; Start 03/02/17 at 12:30 Dextrose (D50w Syringe) 50 ml Q15M PRN IV DECREASED GLUCOSE; Start 03/02/17 at 12:30 Glucagon (Glucagen) 1 mg Q15M PRN IM DECREASED GLUCOSE; Start 03/02/17 at 12:30 Glucose (Glutose) 15 gm Q15M PRN BUCCAL DECREASED GLUCOSE; Start 03/02/17 at 12 :30 Morphine Sulfate (morphine) 2 mg Q4H PRN IV PAIN LEVEL 7-10; Start 03/02/17 at 14:00 Diagnostic Test (Pha) 1 ea 1 ea Q4 XX ; Start 03/04/17 at 09:00 Magnesium Sulfate/ Sodium Chloride (Magnesium Sulfate/NS) 106 ml @ 35.333 mls/ hr ONCE ONCE IVPB ; Start 03/04/17 at 09:30; Stop 03/04/17 at 12:29; Status UNV Potassium Chloride 20 meq 20 meq ONCE ONCE NGT ; Start 03/04/17 at 09:30; Stop 03/04/17 at 09:31; Status UNV Albumin Human 250 ml @ 250 mls/hr ONCE ONCE IV ; Start 03/04/17 at 09:30; Stop 03/04/17 at 10:29; Status UNV BONIFACIO COWART Mar 04, 2017 09:17
[2017-03-04] MEDS ORDERED: ALBUMIN HUMAN 5% 250 ML IV ONE (09:30)
[2017-03-04] MEDS ORDERED: POTASSIUM CHLORIDE 20 MEQ POWDER FOR ORAL SOLN NGT ONE (09:30)
[2017-03-04] MEDS: MIDODRINE 5 MG TAB PO SCH ×3 (09:32→21:35)
[2017-03-04] MEDS: BALSAM PERU/CASTOR OIL 60 GM TUBE TOP SCH (09:33)
[2017-03-04] MEDS: COLLAGENASE 30 GM TUBE TOP SCH (09:33)
[2017-03-04] MEDS: ACCU-CHEK XX SCH ×4 (09:43→21:34)
[2017-03-04] MEDS ORDERED: MAGNESIUM SULFATE 3 GM in SOD CHLORIDE 0.9% 100 ML IVPB ONE (10:30)
--- NOTE | 2017-03-04 12:39 | CONS ---
Date/Time of Note Date/Time of Note DATE: 03/04/17 TIME: 12:36 Assessment/Plan Assessment/Plan Additional Assessment/Plan Ventilator setting; AC of 16, tidal volume 450, PEEP of 5, 40% FiO2. Next Assessment recommendations; 1. Patient admitted for severe sepsis from pancreatitis and pseudocyst formation. 2. Anemia. 2. Fungemia. 4. Fungal UTI. 5. Extremely poor mental status. 6. Bilateral pneumonia. 7. Thrombocytopenia. 8. Ileus. Continue current treatment. Prognosis is poor. Consultation Date/Type/Reason Admit Date/Time Feb 11, 2017 at 05:28 Initial Consult Date 02/20/17 Type of Consultation: Pulmonary/critical care Referring Provider: BONIFACIO COWART 24 HR Interval Summary Free Text/Dictation Patient condition remains critical. Remains completely unresponsive. Remains completely ventilator dependent. General exam; elderly woman, on ventilator via endotracheal tube. Unresponsive. Currently in no distress. Exam/Review of Systems Vital Signs Vitals Vital Signs Date Time Temp Pulse Resp B/P Pulse Ox O2 Delivery O2 Flow Rate FiO2 03/04/17 10:30 79 16 101/52 100 03/04/17 10:00 Mechanical Ventilator 03/04/17 08:00 40 03/04/17 08:00 97.9 Intake and Output 03/03/17 03/03/17 03/04/17 15:00 23:00 07:00 Intake Total 760.2 ml 768.08 ml 721.86 ml Output Total 280 ml 330 ml 354 ml Balance 480.2 ml 438.08 ml 367.86 ml Exam HEENT exam; supple neck, orally intubated. No thyromegaly. No lymphadenopathy. No neck masses. Chest exam; diminished breath sounds bilaterally. S1-S2 audible, no murmurs. Regular rhythm. Abdomen exam; soft, mildly distended. Bowel sounds are absent. No masses felt. Extremity exam; trace peripheral edema. [employer] exam; patient remains unresponsive. Results Result Diagram: 03/04/17 0455 03/04/17 0455 Results 24 hrs Laboratory Tests Test 03/03/17 18:50 03/03/17 22:03 03/04/17 00:50 03/04/17 04:55 Bedside Glucose 96 102 107 White Blood Count 7.1 Red Blood Count 2.56 L Hemoglobin 7.1 L Hematocrit 21.9 L Mean Corpuscular Volume 85.5 Mean Corpuscular Hemoglobin 27.7 L Mean Corpuscular Hemoglobin Concent 32.4 Red Cell Distribution Width 19.3 H Platelet Count 119 L Mean Platelet Volume 14.0 H Neutrophils % 55.2 Lymphocytes % 36.1 Monocytes % 5.1 Eosinophils % 2.3 Basophils % 0.3 Nucleated Red Blood Cells % 0.0 Neutrophils # 3.9 Lymphocytes # 2.6 Monocytes # 0.4 Eosinophils # 0.2 Basophils # 0.0 Nucleated Red Blood Cells # 0.0 Sodium Level 136 Potassium Level 3.7 Chloride Level 103 Carbon Dioxide Level 21 Anion Gap 16 Blood Urea Nitrogen 42 H Creatinine 1.12 H Glucose Level 97 Calcium Level 7.4 L Phosphorus Level 6.8 H Magnesium Level 1.7 Test 03/04/17 09:43 Bedside Glucose 118 Medications Medications Current Medications Ondansetron HCl (Zofran Inj) 4 mg Q6H PRN IV NAUSEA AND/OR VOMITING Last administered on 02/13/17 00:36; Admin Dose 4 MG; Start 02/11/17 at 10:00 Acetaminophen (Tylenol Tab) 650 mg Q6H PRN PO PAIN LEVEL 1-3 OR FEVER Last administered on 02/25/17 19:51; Admin Dose 650 MG; Start 02/11/17 at 10:00 Docusate Sodium (Colace) 100 mg Q12H PRN PO CONSTIPATION; Start 02/11/17 at 10: 00 Bisacodyl (Dulcolax Supp) 10 mg DAILY PRN DE CONSTIPATION; Start 02/11/17 at 10 :00 Miscellaneous Information (Pending Santyl Order For Wound Care) This patient prado... PRN PRN XX WOUND CARE; Start 02/11/17 at 19:00 Collagenase (Santyl) 1 applic DAILY TOP Last administered on 03/04/17 09:33; Admin Dose 1 APPLIC; Start 02/12/17 at 13:30 Diphenhydramine HCl 25 mg 25 mg Q6H PRN IV ITCHING Last administered on 03:22; Admin Dose 25 MG; Start 02/12/17 at 14:00 Total Parenteral Nutrition (Tpn) 1,000 ml @ 40 mls/hr Q24H IV Last administered on 02/25/17 18:53; Admin Dose 40 MLS/HR; Start 02/12/17 at 18:00; Status Future Hold Alprazolam 0.25 mg 0.25 mg Q12H PRN PO ANXIETY Last administered on 02/23/17 02:09; Admin Dose 0.25 MG; Start 02/19/17 at 14:00 Sodium Chloride (NS) 250 ml @ 250 mls/hr Q1H PRN IV abp below 90 Last administered on 02/21/17 20:08; Admin Dose 250 MLS/HR; Start 02/21/17 at 17:30 Pantoprazole (Protonix Iv) 40 mg DAILY@06 IV Last administered on 03/04/17 05: 58; Admin Dose 40 MG; Start 02/23/17 at 06:00 Midodrine (Proamatine) 5 mg TID PO Last administered on 03/04/17 09:32; Admin Dose 5 MG; Start 02/23/17 at 13:30 Lorazepam (Ativan) 0.5 mg Q8H PRN IV AGITATION/ANXIETY; Start 02/23/17 at 13:30 Miscellaneous Information DAILY XX ; Start 02/25/17 at 09:00 Midazolam HCl 50 ml @ 1 mls/hr TITRATE IV Last administered on 02/25/17 22:54 ; Admin Dose 2 MLS/HR; Start 02/25/17 at 10:00 Fentanyl 100 ml @ 2.5 mls/hr TITRATE IV Last administered on 02/25/17 10:43; Admin Dose 2.5 MLS/HR; Start 02/25/17 at 10:00 Norepinephrine 32 mg/Dextrose 500 ml @ 0 mls/hr TITRATE IV Last administered on 03/03/17 12:05; Admin Dose 17.81 MLS/HR; Start 02/28/17 at 11:30 Phenylephrine HCl 80 mg/Dextrose 500 ml @ 0 mls/hr TITRATE IV Last administered on 02/28/17 14:18; Admin Dose 7.5 MLS/HR; Start 02/28/17 at 11:30 Vancomycin HCl 750 mg/Dextrose/ Water 150 ml @ 75 mls/hr Q48H IVPB Last administered on 03/03/17 01:13; Admin Dose 75 MLS/HR; Start 03/03/17 at 01:00 Meropenem/Sodium Chloride 50 ml @ 100 mls/hr Q24H IVPB Last administered on 20:41; Admin Dose 100 MLS/HR; Start 03/01/17 at 21:00 Dextrose/Sodium Chloride (D5-NS) 1,000 ml @ 75 mls/hr [id number] IV Last administered on 03/04/17 09:34; Admin Dose 75 MLS/HR; Start 03/02/17 at 12:30 Miscellaneous Information 1 ea NOTE XX ; Start 03/02/17 at 12:30 Glucose (Glutose) 15 gm Q15M PRN PO DECREASED GLUCOSE; Start 03/02/17 at 12:30 Glucose (Glutose) 22.5 gm Q15M PRN PO DECREASED GLUCOSE; Start 03/02/17 at 12: 30 Dextrose (D50w Syringe) 25 ml Q15M PRN IV DECREASED GLUCOSE Last administered on 03/02/17 12:18; Admin Dose 25 ML; Start 03/02/17 at 12:30 Dextrose (D50w Syringe) 50 ml Q15M PRN IV DECREASED GLUCOSE; Start 03/02/17 at 12:30 Glucagon (Glucagen) 1 mg Q15M PRN IM DECREASED GLUCOSE; Start 03/02/17 at 12:30 Glucose (Glutose) 15 gm Q15M PRN BUCCAL DECREASED GLUCOSE; Start 03/02/17 at 12 :30 Morphine Sulfate (morphine) 2 mg Q4H PRN IV PAIN LEVEL 7-10; Start 03/02/17 at 14:00 Diagnostic Test (Pha) 1 ea 1 ea Q4 XX Last administered on 03/04/17 09:43; Admin Dose 1 EA; Start 03/04/17 at 09:00 Magnesium Sulfate 3 gm/Sodium Chloride 106 ml @ 35.333 mls/ hr ONCE ONCE IVPB Last administered on 03/04/17 12:07; Admin Dose 35.333 MLS/HR; Start 03/04/17 at 10:30; Stop 03/04/17 at 13:29 Caspofungin/ Sodium Chloride (Cancidas/NS) 250 ml @ 250 mls/hr Q24H IVPB ; Start 03/04/17 at 15:00 LISA KOEHLER Mar 04, 2017 12:39
--- NOTE | 2017-03-04 14:09 | CONS ---
Date/Time of Note Date/Time of Note DATE: 03/04/17 TIME: 14:03 Assessment/Plan Assessment/Plan Chief Complaint/Hosp Course ID PROGRESS NOTE TOTAL ABX DAY #7 => VANCO IV + MERREM + Cancidas 24H INTERVAL SUMMARY * Sepsis=> fevers resolved, WBC down-> plan is for central line w/removal of PICC when alternative central venous access established * (+)Yeast UTI (+)Yeast BCx = Fungemia due to Infected PICC line + UTI * 02/25 BCx(+)Yeast; 02/28/17 BCx (+) Yeast; 03/02 BCx (-) 48H GENERAL: Elderly lady on mechanical ventilation orally intubated. VITAL SIGNS: see below. HEENT: Unremarkable ETT-> secure to Vent CARDIAC: S1, S2, 1/6 systolic ejection murmur CHEST: Diminished air entry bilaterally. ABDOMEN: Mildly distended. Bowel sounds present no guarding or rebound EXTREMITIES: No cyanosis, clubbing edema +2 NEUROLOGIC: Generalized weakness ID ASSESSMENT 86 yo F with: 1. Sepsis w/Fevers >102.+ 02/24 &, leukocytosis, tachycardia => Disseminated candidiasis * BCx 02/25 (+) YEAST => Infx PICC line * 02/25/17 YEAST UTI 2. Acute hypoxic respiratory failure=> Intubated 02/24 in setting of sepsis 3. Severe pancreatitis with pseudocyst, currently on TPN. 4. Acute on chronic anemia status post blood product transfusion 5. Urinary retention 6. s/p VRE UTI 02/15/17 7. s/p acute kidney injury 8. Venous thromboembolism with episode of DVT, status post IVC filter. Repeat Doppler negative for DVT (+)MRSA Nares screen (+)MRSA Stool colonization (+)VRE Stool colonization INVASIVES: PICC, ETT, OGT ABX ALLERGY: PCN CURRENT ABX: #7 => VANCO IV + MERREM + Cancidas ID RECOMMENDATIONS 1. Continue current broad spectrum IV ABX coverage 2. Continue Cancidas -> recommendation remains in place; place alternative access and change the PICC line. Problems: Consultation Date/Type/Reason Admit Date/Time Feb 11, 2017 at 05:28 Initial Consult Date 02/21/17 Type of Consultation: ID Referring Provider: BONIFACIO COWART Exam/Review of Systems Vital Signs Vitals Vital Signs Date Time Temp Pulse Resp B/P Pulse Ox O2 Delivery O2 Flow Rate FiO2 03/04/17 13:04 78 16 100 40 03/04/17 10:30 101/52 03/04/17 10:00 Mechanical Ventilator 03/04/17 08:00 97.9 Intake and Output 03/03/17 03/03/17 03/04/17 15:00 23:00 07:00 Intake Total 760.2 ml 768.08 ml 721.86 ml Output Total 280 ml 330 ml 354 ml Balance 480.2 ml 438.08 ml 367.86 ml Results Result Diagram: 03/04/17 0455 03/04/17 0455 Results 24 hrs Laboratory Tests Test 03/03/17 18:50 03/03/17 22:03 03/04/17 00:50 03/04/17 04:55 Bedside Glucose 96 102 107 White Blood Count 7.1 Red Blood Count 2.56 L Hemoglobin 7.1 L Hematocrit 21.9 L Mean Corpuscular Volume 85.5 Mean Corpuscular Hemoglobin 27.7 L Mean Corpuscular Hemoglobin Concent 32.4 Red Cell Distribution Width 19.3 H Platelet Count 119 L Mean Platelet Volume 14.0 H Neutrophils % 55.2 Lymphocytes % 36.1 Monocytes % 5.1 Eosinophils % 2.3 Basophils % 0.3 Nucleated Red Blood Cells % 0.0 Neutrophils # 3.9 Lymphocytes # 2.6 Monocytes # 0.4 Eosinophils # 0.2 Basophils # 0.0 Nucleated Red Blood Cells # 0.0 Sodium Level 136 Potassium Level 3.7 Chloride Level 103 Carbon Dioxide Level 21 Anion Gap 16 Blood Urea Nitrogen 42 H Creatinine 1.12 H Glucose Level 97 Calcium Level 7.4 L Phosphorus Level 6.8 H Magnesium Level 1.7 Test 03/04/17 09:43 Bedside Glucose 118 Medications Medications Current Medications Ondansetron HCl (Zofran Inj) 4 mg Q6H PRN IV NAUSEA AND/OR VOMITING Last administered on 02/13/17 00:36; Admin Dose 4 MG; Start 02/11/17 at 10:00 Acetaminophen (Tylenol Tab) 650 mg Q6H PRN PO PAIN LEVEL 1-3 OR FEVER Last administered on 02/25/17 19:51; Admin Dose 650 MG; Start 02/11/17 at 10:00 Docusate Sodium (Colace) 100 mg Q12H PRN PO CONSTIPATION; Start 02/11/17 at 10: 00 Bisacodyl (Dulcolax Supp) 10 mg DAILY PRN CO CONSTIPATION; Start 02/11/17 at 10 :00 Miscellaneous Information (Pending Santyl Order For Wound Care) This patient prado... PRN PRN XX WOUND CARE; Start 02/11/17 at 19:00 Collagenase (Santyl) 1 applic DAILY TOP Last administered on 03/04/17 09:33; Admin Dose 1 APPLIC; Start 02/12/17 at 13:30 Diphenhydramine HCl 25 mg 25 mg Q6H PRN IV ITCHING Last administered on 03:22; Admin Dose 25 MG; Start 02/12/17 at 14:00 Total Parenteral Nutrition (Tpn) 1,000 ml @ 40 mls/hr Q24H IV Last administered on 02/25/17 18:53; Admin Dose 40 MLS/HR; Start 02/12/17 at 18:00; Status Future Hold Alprazolam 0.25 mg 0.25 mg Q12H PRN PO ANXIETY Last administered on 02/23/17 02:09; Admin Dose 0.25 MG; Start 02/19/17 at 14:00 Sodium Chloride (NS) 250 ml @ 250 mls/hr Q1H PRN IV abp below 90 Last administered on 02/21/17 20:08; Admin Dose 250 MLS/HR; Start 02/21/17 at 17:30 Pantoprazole (Protonix Iv) 40 mg DAILY@06 IV Last administered on 03/04/17 05: 58; Admin Dose 40 MG; Start 02/23/17 at 06:00 Midodrine (Proamatine) 5 mg TID PO Last administered on 03/04/17 09:32; Admin Dose 5 MG; Start 02/23/17 at 13:30 Lorazepam (Ativan) 0.5 mg Q8H PRN IV AGITATION/ANXIETY; Start 02/23/17 at 13:30 Miscellaneous Information DAILY XX ; Start 02/25/17 at 09:00 Midazolam HCl 50 ml @ 1 mls/hr TITRATE IV Last administered on 02/25/17 22:54 ; Admin Dose 2 MLS/HR; Start 02/25/17 at 10:00 Fentanyl 100 ml @ 2.5 mls/hr TITRATE IV Last administered on 02/25/17 10:43; Admin Dose 2.5 MLS/HR; Start 02/25/17 at 10:00 Norepinephrine 32 mg/Dextrose 500 ml @ 0 mls/hr TITRATE IV Last administered on 03/03/17 12:05; Admin Dose 17.81 MLS/HR; Start 02/28/17 at 11:30 Phenylephrine HCl 80 mg/Dextrose 500 ml @ 0 mls/hr TITRATE IV Last administered on 02/28/17 14:18; Admin Dose 7.5 MLS/HR; Start 02/28/17 at 11:30 Vancomycin HCl 750 mg/Dextrose/ Water 150 ml @ 75 mls/hr Q48H IVPB Last administered on 03/03/17 01:13; Admin Dose 75 MLS/HR; Start 03/03/17 at 01:00 Meropenem/Sodium Chloride 50 ml @ 100 mls/hr Q24H IVPB Last administered on 20:41; Admin Dose 100 MLS/HR; Start 03/01/17 at 21:00 Dextrose/Sodium Chloride (D5-NS) 1,000 ml @ 75 mls/hr [id number] IV Last administered on 03/04/17 09:34; Admin Dose 75 MLS/HR; Start 03/02/17 at 12:30 Miscellaneous Information 1 ea NOTE XX ; Start 03/02/17 at 12:30 Glucose (Glutose) 15 gm Q15M PRN PO DECREASED GLUCOSE; Start 03/02/17 at 12:30 Glucose (Glutose) 22.5 gm Q15M PRN PO DECREASED GLUCOSE; Start 03/02/17 at 12: 30 Dextrose (D50w Syringe) 25 ml Q15M PRN IV DECREASED GLUCOSE Last administered on 03/02/17 12:18; Admin Dose 25 ML; Start 03/02/17 at 12:30 Dextrose (D50w Syringe) 50 ml Q15M PRN IV DECREASED GLUCOSE; Start 03/02/17 at 12:30 Glucagon (Glucagen) 1 mg Q15M PRN IM DECREASED GLUCOSE; Start 03/02/17 at 12:30 Glucose (Glutose) 15 gm Q15M PRN BUCCAL DECREASED GLUCOSE; Start 03/02/17 at 12 :30 Morphine Sulfate (morphine) 2 mg Q4H PRN IV PAIN LEVEL 7-10; Start 03/02/17 at 14:00 Diagnostic Test (Pha) 1 ea 1 ea Q4 XX Last administered on 03/04/17t 09:43; Admin Dose 1 EA; Start 03/04/17 at 09:00 Caspofungin/ Sodium Chloride (Cancidas/NS) 250 ml @ 250 mls/hr Q24H IVPB ; Start 03/04/17 at 15:00 DEBORA WILLOUGHBY NP Mar 04, 2017 14:09
[2017-03-04] MEDS: CASPOFUNGIN 35 MG in SOD CHLORIDE 0.9% 250 ML IVPB SCH (16:03)
--- NOTE | 2017-03-04 17:22 | PN ---
Date/Time of Note Date/Time of Note DATE: 03/04/17 TIME: 17:18 Assessment/Plan VTE Prophylaxis VTE Prophylaxis Intervention: SCD's Lines/Catheters IV [facility] Peripheral IV Urinary Cath still in place: Yes Reason Cath still needed: urinary retention Assessment/Plan Assessment/Plan Assessment/Plan * Sepsis * Acute respiratory failure management c/o pulmonary * Anemia hemoglobin * Refused EGD * Pancreatitis with Pancreatic pseudocyst/awaiting drainage * Coagulopathy * H/O tube cholecystostomy * H/O ERCP removal of stone with biliary stent * Plan * Continue present regimen * monitor hemoglobin and hematocrit daily and transfuse per protocol * Spoke with DR Hill regarding plan to feed patient because TPN is not possible because of fungemia,patient will still ne on npo * further orders will depend on clinical course * case discussed with DR Hill Subjective 24 Hr Interval Summary Free Text/Dictation * Course reviewed with RN * Patient seen and examined * No untoward events overnight Exam/Review of Systems Vital Signs Vitals Vital Signs Date Time Temp Pulse Resp B/P Pulse Ox O2 Delivery O2 Flow Rate FiO2 03/04/17 13:04 78 16 100 40 03/04/17 10:30 101/52 03/04/17 10:00 Mechanical Ventilator 03/04/17 08:00 97.9 Intake and Output 03/03/17 03/03/17 03/04/17 15:00 23:00 07:00 Intake Total 760.2 ml 768.08 ml 721.86 ml Output Total 280 ml 330 ml 354 ml Balance 480.2 ml 438.08 ml 367.86 ml Exam Constitutional: frail ENMT: intubated Neck: supple Respiratory: crackles/rales, diminished breath sounds Cardiovascular: nl pulses, regular rate and rhythm Gastrointestinal: bowel sounds, soft, No non-tender, No rebound or guarding Extremities: normal pulses, pitting pedal edema Neurological: unresponsive Skin: nl turgor, rash or lesions Lymph: nl lymph nodes Results Result Diagram: 03/04/17 0455 03/04/17 0455 Results 24 hrs Laboratory Tests Test 03/03/17 18:50 03/03/17 22:03 03/04/17 00:50 03/04/17 04:55 Bedside Glucose 96 102 107 White Blood Count 7.1 Red Blood Count 2.56 L Hemoglobin 7.1 L Hematocrit 21.9 L Mean Corpuscular Volume 85.5 Mean Corpuscular Hemoglobin 27.7 L Mean Corpuscular Hemoglobin Concent 32.4 Red Cell Distribution Width 19.3 H Platelet Count 119 L Mean Platelet Volume 14.0 H Neutrophils % 55.2 Lymphocytes % 36.1 Monocytes % 5.1 Eosinophils % 2.3 Basophils % 0.3 Nucleated Red Blood Cells % 0.0 Neutrophils # 3.9 Lymphocytes # 2.6 Monocytes # 0.4 Eosinophils # 0.2 Basophils # 0.0 Nucleated Red Blood Cells # 0.0 Sodium Level 136 Potassium Level 3.7 Chloride Level 103 Carbon Dioxide Level 21 Anion Gap 16 Blood Urea Nitrogen 42 H Creatinine 1.12 H Glucose Level 97 Calcium Level 7.4 L Phosphorus Level 6.8 H Magnesium Level 1.7 Test 03/04/17 09:43 03/04/17 15:11 Bedside Glucose 118 103 Medications Medications Current Medications Ondansetron HCl (Zofran Inj) 4 mg Q6H PRN IV NAUSEA AND/OR VOMITING Last administered on 02/13/17 00:36; Admin Dose 4 MG; Start 02/11/17 at 10:00 Acetaminophen (Tylenol Tab) 650 mg Q6H PRN PO PAIN LEVEL 1-3 OR FEVER Last administered on 02/25/17 19:51; Admin Dose 650 MG; Start 02/11/17 at 10:00 Docusate Sodium (Colace) 100 mg Q12H PRN PO CONSTIPATION; Start 02/11/17 at 10: 00 Bisacodyl (Dulcolax Supp) 10 mg DAILY PRN IN CONSTIPATION; Start 02/11/17 at 10 :00 Miscellaneous Information (Pending Santyl Order For Wound Care) This patient prado... PRN PRN XX WOUND CARE; Start 02/11/17 at 19:00 Collagenase (Santyl) 1 applic DAILY TOP Last administered on 03/04/17 09:33; Admin Dose 1 APPLIC; Start 02/12/17 at 13:30 Diphenhydramine HCl 25 mg 25 mg Q6H PRN IV ITCHING Last administered on 03:22; Admin Dose 25 MG; Start 02/12/17 at 14:00 Total Parenteral Nutrition (Tpn) 1,000 ml @ 40 mls/hr Q24H IV Last administered on 02/25/17 18:53; Admin Dose 40 MLS/HR; Start 02/12/17 at 18:00; Status Future Hold Alprazolam 0.25 mg 0.25 mg Q12H PRN PO ANXIETY Last administered on 02/23/17 02:09; Admin Dose 0.25 MG; Start 02/19/17 at 14:00 Sodium Chloride (NS) 250 ml @ 250 mls/hr Q1H PRN IV abp below 90 Last administered on 02/21/17 20:08; Admin Dose 250 MLS/HR; Start 02/21/17 at 17:30 Pantoprazole (Protonix Iv) 40 mg DAILY@06 IV Last administered on 03/04/17 05: 58; Admin Dose 40 MG; Start 02/23/17 at 06:00 Midodrine (Proamatine) 5 mg TID PO Last administered on 03/04/17 15:12; Admin Dose 5 MG; Start 02/23/17 at 13:30 Lorazepam (Ativan) 0.5 mg Q8H PRN IV AGITATION/ANXIETY; Start 02/23/17 at 13:30 Miscellaneous Information DAILY XX ; Start 02/25/17 at 09:00 Midazolam HCl 50 ml @ 1 mls/hr TITRATE IV Last administered on 02/25/17 22:54 ; Admin Dose 2 MLS/HR; Start 02/25/17 at 10:00 Fentanyl 100 ml @ 2.5 mls/hr TITRATE IV Last administered on 02/25/17 10:43; Admin Dose 2.5 MLS/HR; Start 02/25/17 at 10:00 Norepinephrine 32 mg/Dextrose 500 ml @ 0 mls/hr TITRATE IV Last administered on 03/03/17 12:05; Admin Dose 17.81 MLS/HR; Start 02/28/17 at 11:30 Phenylephrine HCl 80 mg/Dextrose 500 ml @ 0 mls/hr TITRATE IV Last administered on 02/28/17 14:18; Admin Dose 7.5 MLS/HR; Start 02/28/17 at 11:30 Vancomycin HCl 750 mg/Dextrose/ Water 150 ml @ 75 mls/hr Q48H IVPB Last administered on 03/03/17 01:13; Admin Dose 75 MLS/HR; Start 03/03/17 at 01:00 Meropenem/Sodium Chloride 50 ml @ 100 mls/hr Q24H IVPB Last administered on 20:41; Admin Dose 100 MLS/HR; Start 03/01/17 at 21:00 Dextrose/Sodium Chloride (D5-NS) 1,000 ml @ 75 mls/hr [id number] IV Last administered on 03/04/17 09:34; Admin Dose 75 MLS/HR; Start 03/02/17 at 12:30 Miscellaneous Information 1 ea NOTE XX ; Start 03/02/17 at 12:30 Glucose (Glutose) 15 gm Q15M PRN PO DECREASED GLUCOSE; Start 03/02/17 at 12:30 Glucose (Glutose) 22.5 gm Q15M PRN PO DECREASED GLUCOSE; Start 03/02/17 at 12: 30 Dextrose (D50w Syringe) 25 ml Q15M PRN IV DECREASED GLUCOSE Last administered on 03/02/17 12:18; Admin Dose 25 ML; Start 03/02/17 at 12:30 Dextrose (D50w Syringe) 50 ml Q15M PRN IV DECREASED GLUCOSE; Start 03/02/17 at 12:30 Glucagon (Glucagen) 1 mg Q15M PRN IM DECREASED GLUCOSE; Start 03/02/17 at 12:30 Glucose (Glutose) 15 gm Q15M PRN BUCCAL DECREASED GLUCOSE; Start 03/02/17 at 12 :30 Morphine Sulfate (morphine) 2 mg Q4H PRN IV PAIN LEVEL 7-10; Start 03/02/17 at 14:00 Diagnostic Test (Pha) 1 ea 1 ea Q4 XX Last administered on 03/04/17 15:12; Admin Dose 1 EA; Start 03/04/17 at 09:00 Caspofungin/ Sodium Chloride (Cancidas/NS) 250 ml @ 250 mls/hr Q24H IVPB Last administered on 03/04/17 16:03; Admin Dose 250 MLS/HR; Start 03/04/17 at 15:00 LUZMARIA SPAIN NP Mar 04, 2017 17:22
--- NOTE | 2017-03-04 18:46 | PN ---
Date/Time of Note Date/Time of Note DATE: 03/04/17 TIME: 18:46 Assessment/Plan Lines/Catheters IV Catheter Type (from Nrsg): Peripheral IV Elder in Place (from Nrsg): Yes Assessment/Plan Chief Complaint/Hosp Course Additional Assessment/Plan Respiratory failure Pancreatitis Infected PICC line Patient will be needing a central line However the son has refused a central line placement We will proceed with placement of a central line when son is agreeable Problems: Subjective 24 Hr Interval Summary Constitutional: improved Pain Control: mild Exam/Review of Systems Vital Signs Vitals Vital Signs Date Time Temp Pulse Resp B/P Pulse Ox O2 Delivery O2 Flow Rate FiO2 03/04/17 17:14 70 16 100 40 03/04/17 10:30 101/52 03/04/17 10:00 Mechanical Ventilator 03/04/17 08:00 97.9 Intake and Output 03/03/17 03/03/17 03/04/17 15:00 23:00 07:00 Intake Total 760.2 ml 768.08 ml 721.86 ml Output Total 280 ml 330 ml 354 ml Balance 480.2 ml 438.08 ml 367.86 ml Exam Neck: non-tender, supple Respiratory: clear to auscultation, normal air movement Cardiovascular: nl pulses, regular rate and rhythm Gastrointestinal: nl liver, spleen, non-tender, soft Results Result Diagram: 03/04/17 0455 03/04/17 0455 LUIZ SEQUEIRA MD Mar 04, 2017 18:46
[2017-03-04] MEDS: MEROPENEM 500MG/50 ML (PMX) 50 ML IVPB SCH (21:35)
[2017-03-05] VITALS (94 sets, daily range): BP systolic 74–136; BP diastolic 37–92; PULSE 73–107; RESP 14–28
[2017-03-05] MEDS: DEXTROSE 5%-0.9% NACL 1,000 ML IV SCH ×2 (01:05→21:03)
[2017-03-05] MEDS: ACCU-CHEK XX SCH ×6 (01:22→21:03)
[2017-03-05] MEDS: VANCOMYCIN 750 MG in DEXTROSE 5% 150 ML IVPB SCH (01:25)
[2017-03-05] MEDS: PANTOPRAZOLE 40 MG INJ IV SCH (05:43)
[2017-03-05 05:57] LABS: MAGNESIUM 2.2 mg/dl (1.7-2.5); PHOSPHORUS 6.4 mg/dl (2.5-4.9)
[2017-03-05 06:21] LABS: INR 1.61; PROTIME 19.3 Sec (12.2-14.2); PT RATIO 1.5
[2017-03-05 06:22] LABS: PARTIAL THROMBOPLASTIN TIME 45.7 Sec (25.0-35.0)
[2017-03-05 06:41] LABS: ALBUMIN 1.8 g/dl (3.3-4.9); ALBUMIN/GLOBULIN RATIO 0.45; BILIRUBIN,DIRECT 5.9 mg/dl (0.00-0.20); BILIRUBIN,INDIRECT 1.4 mg/dl (0-1.1); BILIRUBIN,TOTAL 7.3 mg/dl (0.2-1.3); CALCIUM 7.7 mg/dl (8.4-10.2); CREATININE 0.97 mg/dl (0.44-1.00); POTASSIUM 3.5 mmol/L (3.5-5.1); TOTAL PROTEIN 5.8 g/dl (6.1-8.1)
[2017-03-05 07:50] LABS: HEMATOCRIT 23.3 % (37.0-47.0); RED BLOOD COUNT 1.53 10^6/ul (4.20-5.40); WHITE BLOOD COUNT 8.1 10^3/ul (4.8-10.8)
[2017-03-05 07:51] LABS: HEMOGLOBIN 7.5 g/dl (12.0-16.0)
[2017-03-05 07:52] LABS: BASOPHILS % 0.6 % (0.0-2.0); EOSINOPHILS % 1.7 % (0.0-7.0); LYMPHOCYTES % 35.5 % (15.0-51.0); MEAN CORPUSCULAR HEMOGLOBIN 28.2 pg (29.0-33.0); MEAN CORPUSCULAR HGB CONC 32.2 g/dl (32.0-37.0); MEAN CORPUSCULAR VOLUME 87.6 fl (82.0-101.0); MEAN PLATELET VOLUME 13.5 fl (7.4-10.4); NEUTROPHIL # 4.5 10^3/ul (1.6-7.5); NEUTROPHILS % 56.2 % (39.0-77.0); PLATELET COUNT 110 10^3/UL (140-440); RED CELL DISTRIBUTION WIDTH 19.7 % (11.5-14.5)
[2017-03-05 07:53] LABS: BASOPHIL # 0.1 10^3/ul (0.0-0.1); EOSINOPHILS # 0.1 10^3/ul (0.0-0.5); LYMPHOCYTES # 2.9 10^3/ul (0.8-2.9); MONOCYTE # 0.4 10^3/ul (0.3-0.9)
[2017-03-05] MEDS: MIDODRINE 5 MG TAB PO SCH ×3 (08:59→21:02)
[2017-03-05] MEDS: BALSAM PERU/CASTOR OIL 60 GM TUBE TOP SCH (09:00)
[2017-03-05] MEDS: COLLAGENASE 30 GM TUBE TOP SCH (09:00)
[2017-03-05] MEDS: [UNRECOGNIZED DRUG - REMARK] XX SCH (09:13)
[2017-03-05] MEDS ORDERED: POTASSIUM CHLORIDE 250 ML IVPB ONE (09:30)
--- NOTE | 2017-03-05 09:33 | PN ---
Date/Time of Note Date/Time of Note DATE: 03/05/17 TIME: 09:22 Assessment/Plan VTE Prophylaxis VTE Prophylaxis Intervention: SCD's Lines/Catheters IV Catheter Type (from Nrs): PICC Line Central line still needed: Yes (IV access while on pressures and antibiotics) Urinary Cath still in place: Yes Reason Cath still needed: other (indicate) (Monitor urine output) Assessment/Plan Assessment/Plan 86 yo female with: 1. Acute Respiratory failure, in setting of pleural effusions, atelectasis, severe anemia and Norbert glabrata fungemia. Poor overall clinical status. Patient in ICU on mechanical ventilation due to deteriorating respiratory status and pressor x1. CXR with pulmonary vascular congestion, small to moderate pleural effusions even s/p thoracentesis 02/20 with -300 cc and another right thoracentesis 02/23 with removal of less than 100 cc, Continue Vancomycin, Meropenem and Cancidas. On mechanical ventilation, FiO2 30%, continue to monitor, pulmonary following. 2. Sepsis and Septic shock, from Norbert glabrata fungemia and septicemia . She does have a risk factors but this is the first time her blood cultures are growing yeast, she has been on Diflucan throughout her admission and at discharge from the outside hospital. Patient has been now switched to Cancidas as of last week. PICC line needs to be changed, ideally it should be removed and replaced in the next 2-3 days however we do need IV access for her pressors at least. Therefore after discussion with infectious disease the plan is to remove the PICC line from one extremity and place a central line which the son did agree with at first then refused central line placement. Repeat blood cultures 02/28 with 1/2 blood cultures still positive with norbert glabrata, it is unclear if it is culture from the PICC line or peripheral. Repeat blood cultures again 03/02, 1 from PICC line and one from peripheral so far NGTD. Patient still have the same PICC line. Apparently, the son may be amenable now to central line placement but needs to talk to vascular surgery. Continue Delfin, Dr. Murphy from infectious diseases following. Patient is currently intubated, off sedation 5 days and more responsive today. On 1 pressor, Levophed down to 12 mcg/min. 3. S/p Severe pancreatitis with pseudocyst, holding TPN in setting of persistent candidemia. Will attempt tube feeding. CAT scan of the abdomen and pelvis has been compared to the one done at [facility] approximately 3 weeks ago, cholecystostomy tube has been removed however there is concern as the patient has a new fluid collection in addition of the previous pseudocyst also previous pseudocyst seems to have increased in size and there is concern for possible infection. We were planing for drainage of 2nd cyst since admission, but INR at 1.4 and patient clinically declined further now intubated and on 1 pressor with ongoing sepsis. Per Surgery note last week, ? bleeding in pseudocyst but patient was not stable to get bleeding scan due to fact she was on BiPAP Continue Meropenem, Vancomycin and Cancidas. Follow-up infectious disease recommendations today. 4. Acute on chronic anemia status post blood product transfusion at least twice during this admission, Hb at 7.1 for now and platelets in the 100's now. Transfuse if Hb<7 Patient seems to have been in DIC with elevated Direct bili, DDimmer ... Bleeding scan was not done due to respiratory distress and needs for continuous BiPAP, she is now intubated however still having hemodynamic instability GI following. No signs of acute bleeding so far however patient does have positive fecal occult blood. Appreciate GI consult, patient and her son declined EGD prior. Appreciate recommendations of Dr Hannah, may still needs CT guided drainage of 2nd pseudocyst by IR, however patient now with hemodynamic instability and intubated, likely also coagulopathic from a septic state, not a candidate for IR procedure currently. 5. Hypotension/septic shock Based on records patient has been actually put on midodrine 5 mg p.o. tid due to ongoing hypotension even at discharge from [facility], Now the patient intubated, and septic with candidemia with Norbert glabrata, continue Levophed for blood pressure support may be able to titrate even further as patient responding to albumin and IV fluids of note she still getting Midodrine per OGT Continue current antibiotics, appreciate infectious disease assistance Poor prognosis 6. Acute kidney injury, in setting of septic shock and ongoing candidemia. Urine output picked up yesterday and renal function has improved while getting to daily boluses of albumin x 3 days now and on IV fluids Continue D5NS at 75 cc/hr and also repeating albumin bolus today. Anasarca is noted that the patient needs intravascular volume repletion with IV fluids and occasional albumin boluses to try to preserve her renal function as much as possible Norbert glabrata positive urine culture last week, Elder catheter has been changed 7. Hyponatremia, Nutrition: Resolved, will start tube feeding if possible We had to hold off TPN due to current fungemia. Infected PICC line still in place due to refusal of son to change it. Appreciate nephrology assistance from Dr. Partida 8. Sinus Tachycardia: Per report from [facility] patient has sinus tachycardia. Resolved as patient in less distress currently after intubation and sedation. 9. Venous thromboembolism with episode of DVT, status post IVC filter. Repeat Doppler negative for DVT 10. Mild coagulopathy: PTT wnl, Vitamin K and FFP as needed for INR 1.4 but to be noted patient with VTE, s/p IVC filter. Current coagulopathy likely related to DIC. Monitor. 11. Hyperbilirubinemia, primarily direct, also slight elevation of alkaline phosphatase. Patient's hemoglobin is stable currently, she seems to be out of DIC, will check a liver ultrasound and notify gastroenterology who has been following the patient. Prophylaxis: Protonix for GI prophylaxis, SCDs and status post IVC filter for DVT prophylaxis Disposition: ICU now, intubated on mechanical ventilation , attempted repeat thoracentesis right pleural effusion with very minimal output. Now with fungemia Pending CT chest but unable to perform due to patient's hemodynamic instability Patient's prognosis is even worse with findings of candidemia with Norbert glabrata, son updated at length last week and again yesterday while also attempting to explain and obtain consent again for central line placement and removal of the current PICC line which is likely infected with Norbert glabrata based on cultures and also recommendation from internal medicine, infectious disease and critical care. The son has refused to give consent so far and mostly disagrees, when it suits him, with the current assessment from the treatment team that the patient is critically ill and unfortunately likely not recover from this episode. Full code per son and Jesus SANTANA. Subjective 24 Hr Interval Summary Free Text/Dictation Patient overall clinically seems to be improving and more responsive, FiO2 down to 30% She opens her eyes to name, she is moving all her 4 extremities with minimal stimulation, vital signs seems to be more stable and laboratory data improved except it is noted that she has significant direct hyperbilirubinemia and patient is jaundiced on exam Liver ultrasound pending Also apparently according to nurses report overnight the son did call and would be open to a central line placement, he however needs to be consented by vascular surgery in my opinion as he is notorious to change his mind and easily would blame any unfavorable outcome on the treatment team even if he has signed a consent, he would have a way of denying being informed properly. Exam/Review of Systems Vital Signs Vitals Vital Signs Date Time Temp Pulse Resp B/P Pulse Ox O2 Delivery O2 Flow Rate FiO2 03/05/17 06:45 87 20 97/58 100 03/05/17 06:30 Mechanical Ventilator 03/05/17 05:05 30 03/05/17 04:00 97.6 Intake and Output 03/04/17 03/04/17 03/05/17 15:00 23:00 07:00 Intake Total 1419.42 ml 1100.29 ml 684.36 ml Output Total 220 ml 183 ml 224 ml Balance 1199.42 ml 917.29 ml 460.36 ml Exam Constitutional: frail, other (More responsive, also noted to be jaundiced more significantly) Respiratory: diminished breath sounds (At the bases bilaterally) Cardiovascular: nl pulses, regular rate and rhythm Gastrointestinal: other (Nondistended), soft Musculoskeletal: swelling (Diffuse anasarca) Extremities: normal pulses, other (Diffuse anasarca) Neurological: PLASTIC PARTS FABRICATOR II-XII intact, other (More responsive today, seems to be responding to name) Skin: diaphoresis Results Result Diagram: 03/05/1751603/05/17 0517 Results 24 hrs Laboratory Tests Test 03/04/17 09:43 03/04/17 15:11 03/04/17 18:22 03/04/17 21:34 Bedside Glucose 118 103 105 105 Test 03/05/17 00:53 03/05/17 05:17 03/05/17 05:43 Bedside Glucose 101 96 White Blood Count 8.1 Red Blood Count 1.53 #L Hemoglobin 7.5 L Hematocrit 23.3 L Mean Corpuscular Volume 87.6 Mean Corpuscular Hemoglobin 28.2 L Mean Corpuscular Hemoglobin Concent 32.2 Red Cell Distribution Width 19.7 H Platelet Count 110 L Mean Platelet Volume 13.5 H Neutrophils % 56.2 Lymphocytes % 35.5 Monocytes % 5.0 Eosinophils % 1.7 Basophils % 0.6 Nucleated Red Blood Cells % 0.0 Neutrophils # 4.5 Lymphocytes # 2.9 Monocytes # 0.4 Eosinophils # 0.1 Basophils # 0.1 Nucleated Red Blood Cells # 0.0 Prothrombin Time 19.3 H Prothrombin Time Ratio 1.5 INR International Normalized Ratio 1.61 Activated Partial Thromboplast Time 45.7 H Sodium Level 138 Potassium Level 3.5 Chloride Level 106 Carbon Dioxide Level 20 L Anion Gap 16 Blood Urea Nitrogen 34 H Creatinine 0.97 Glucose Level 93 Calcium Level 7.7 L Phosphorus Level 6.4 H Magnesium Level 2.2 Total Bilirubin 7.3 H Direct Bilirubin 5.90 H Indirect Bilirubin 1.4 H Aspartate Amino Transf (AST/SGOT) 51 H Alanine Aminotransferase (ALT/SGPT) 26 Alkaline Phosphatase 324 H Total Protein 5.8 L Albumin 1.8 L Globulin 4.00 H Albumin/Globulin Ratio 0.45 Medications Medications Current Medications Ondansetron HCl (Zofran Inj) 4 mg Q6H PRN IV NAUSEA AND/OR VOMITING Last administered on 02/13/17 00:36; Admin Dose 4 MG; Start 02/11/17 at 10:00 Acetaminophen (Tylenol Tab) 650 mg Q6H PRN PO PAIN LEVEL 1-3 OR FEVER Last administered on 02/25/17 19:51; Admin Dose 650 MG; Start 02/11/17 at 10:00 Docusate Sodium (Colace) 100 mg Q12H PRN PO CONSTIPATION; Start 02/11/17 at 10: 00 Bisacodyl (Dulcolax Supp) 10 mg DAILY PRN [place] CONSTIPATION; Start 02/11/17 at 10 :00 Miscellaneous Information (Pending Santyl Order For Wound Care) This patient prado... PRN PRN XX WOUND CARE; Start 02/11/17 at 19:00 Collagenase (Santyl) 1 applic DAILY TOP Last administered on 03/05/17 09:00; Admin Dose 1 APPLIC; Start 02/12/17 at 13:30 Diphenhydramine HCl 25 mg 25 mg Q6H PRN IV ITCHING Last administered on 03:22; Admin Dose 25 MG; Start 02/12/17 at 14:00 Total Parenteral Nutrition (Tpn) 1,000 ml @ 40 mls/hr Q24H IV Last administered on 02/25/17 18:53; Admin Dose 40 MLS/HR; Start 02/12/17 at 18:00; Status Future Hold Alprazolam 0.25 mg 0.25 mg Q12H PRN PO ANXIETY Last administered on 02/23/17 02:09; Admin Dose 0.25 MG; Start 02/19/17 at 14:00 Sodium Chloride (NS) 250 ml @ 250 mls/hr Q1H PRN IV abp below 90 Last administered on 02/21/17 20:08; Admin Dose 250 MLS/HR; Start 02/21/17 at 17:30 Pantoprazole (Protonix Iv) 40 mg DAILY@06 IV Last administered on 03/05/17 05: 43; Admin Dose 40 MG; Start 02/23/17 at 06:00 Midodrine (Proamatine) 5 mg TID PO Last administered on 03/05/17 08:59; Admin Dose 5 MG; Start 02/23/17 at 13:30 Lorazepam (Ativan) 0.5 mg Q8H PRN IV AGITATION/ANXIETY; Start 02/23/17 at 13:30 Miscellaneous Information DAILY XX Last administered on 03/05/17 09:13; Admin Dose 1 EA; Start 02/25/17 at 09:00 Midazolam HCl 50 ml @ 1 mls/hr TITRATE IV Last administered on 02/25/17 22:54 ; Admin Dose 2 MLS/HR; Start 02/25/17 at 10:00 Fentanyl 100 ml @ 2.5 mls/hr TITRATE IV Last administered on 02/25/17 10:43; Admin Dose 2.5 MLS/HR; Start 02/25/17 at 10:00 Norepinephrine 32 mg/Dextrose 500 ml @ 0 mls/hr TITRATE IV Last administered on 03/04/17 21:10; Admin Dose 13.12 MLS/HR; Start 02/28/17 at 11:30 Phenylephrine HCl 80 mg/Dextrose 500 ml @ 0 mls/hr TITRATE IV Last administered on 02/28/17 14:18; Admin Dose 7.5 MLS/HR; Start 02/28/17 at 11:30 Vancomycin HCl 750 mg/Dextrose/ Water 150 ml @ 75 mls/hr Q48H IVPB Last administered on 03/05/17 01:25; Admin Dose 75 MLS/HR; Start 03/03/17 at 01:00 Meropenem/Sodium Chloride 50 ml @ 100 mls/hr Q24H IVPB Last administered on 21:35; Admin Dose 100 MLS/HR; Start 03/01/17 at 21:00 Dextrose/Sodium Chloride (D5-NS) 1,000 ml @ 75 mls/hr [id number] IV Last administered on 03/05/17 01:05; Admin Dose 75 MLS/HR; Start 03/02/17 at 12:30 Miscellaneous Information 1 ea NOTE XX ; Start 03/02/17 at 12:30 Glucose (Glutose) 15 gm Q15M PRN PO DECREASED GLUCOSE; Start 03/02/17 at 12:30 Glucose (Glutose) 22.5 gm Q15M PRN PO DECREASED GLUCOSE; Start 03/02/17 at 12: 30 Dextrose (D50w Syringe) 25 ml Q15M PRN IV DECREASED GLUCOSE Last administered on 03/02/17 12:18; Admin Dose 25 ML; Start 03/02/17 at 12:30 Dextrose (D50w Syringe) 50 ml Q15M PRN IV DECREASED GLUCOSE; Start 03/02/17 at 12:30 Glucagon (Glucagen) 1 mg Q15M PRN IM DECREASED GLUCOSE; Start 03/02/17 at 12:30 Glucose (Glutose) 15 gm Q15M PRN BUCCAL DECREASED GLUCOSE; Start 03/02/17 at 12 :30 Morphine Sulfate (morphine) 2 mg Q4H PRN IV PAIN LEVEL 7-10; Start 03/02/17 at 14:00 Diagnostic Test (Pha) 1 ea 1 ea Q4 XX Last administered on 03/05/17 09:13; Admin Dose 1 EA; Start 03/04/17 at 09:00 Caspofungin 35 mg/ Sodium Chloride 250 ml @ 250 mls/hr Q24H IVPB Last administered on 03/04/17 16:03; Admin Dose 250 MLS/HR; Start 03/04/17 at 15:00 Potassium Chloride (KCl 40 MEQ/250 ML NS) 250 ml @ 62.5 mls/hr ONCE ONCE IVPB ; Start 03/05/17 at 09:30; Stop 03/05/17 at 13:29; Status BONIFACIO HINTON F Mar 05, 2017 09:32
[2017-03-05] MEDS: ALBUTEROL 18 GM INHALER INH SCH ×2 (09:40→18:04)
[2017-03-05] MEDS: IPRATROPIUM (HFA) 12.9 GM INHALER INH SCH ×2 (09:41→18:04)
[2017-03-05] MEDS ORDERED: ALBUMIN HUMAN 5% 250 ML IV ONE (10:00)
--- NOTE | 2017-03-05 10:52 | RADRPT ---
PROCEDURE: US Abdomen (right upper quadrant). CLINICAL INDICATION: Hyperbilirubinemia. Elevated liver function tests. TECHNIQUE: Multiple real-time longitudinal and transverse images of the right upper quadrant of th e abdomen were acquired utilizing a curved array transducer. Images were reviewed on a high-resoluti on PACS workstation. COMPARISON: CT scan of the abdomen and pelvis dated 02/11/2017. FINDINGS: The liver is normal in size and normal in echogenicity. There is no focal hepatic lesion. The gallbladder is normal with no stones or wall thickening. There is no pericholecystic fluid gamal ection. The bile ducts are normal with the common bile duct measuring 4.9 mm in diameter. There is a cystic mass adjacent to or within the body of the pancreas measuring approximately 3.6 x 5.7 cm. There is moderate ascites. There is a right pleural effusion. The right kidney measures 10.2 cm. There is normal echogenicity of the right kidney. There is no solid right renal mass, hydronephrosis, or calculus. Benign right renal cysts are noted measuring u p to 1.1 cm. IMPRESSION: 1. Cystic mass adjacent to or within the body of the pancreas. This may be due to a pseudocyst or cystic neoplasm. 2. Moderate ascites. 3. Right pleural effusion. 4. Benign right renal cysts. 5. Otherwise unremarkable study. RPTAT: QQ .Joel Diamond MD, Date Time Electronically viewed and signed by .Joel Diamond MD, on 03/05/2017 10:52 .R/
--- NOTE | 2017-03-05 11:45 | CONS ---
Date/Time of Note Date/Time of Note DATE: 03/05/17 TIME: 11:42 Assessment/Plan Assessment/Plan Additional Assessment/Plan Ventilator setting; AC of 16, tidal volume 450, PEEP of 5, 30% FiO2. Patient currently on Levophed at 11 mics per minute. Assessment and recommendations; 1. Patient admitted for sepsis from pancreatitis and pseudocyst. 2. Extremely poor mental status. 3. Bilateral pneumonia. 4. Ongoing sepsis. 5. Fungemia and UTI. 6. Anemia. Continue current treatment. Prognosis is very poor. Consultation Date/Type/Reason Admit Date/Time Feb 11, 2017 at 05:28 Initial Consult Date 02/20/17 Type of Consultation: Pulmonary/critical care Referring Provider: BONIFACIO COWART 24 HR Interval Summary Free Text/Dictation Patient condition remains critical. Remains unresponsive. Still requiring Levophed for blood pressure maintenance. General exam; elderly woman, orally intubated, unresponsive, currently in no distress. Exam/Review of Systems Vital Signs Vitals Vital Signs Date Time Temp Pulse Resp B/P Pulse Ox O2 Delivery O2 Flow Rate FiO2 03/05/17 06:45 87 20 97/58 100 03/05/17 06:30 Mechanical Ventilator 03/05/17 05:05 30 03/05/17 04:00 97.6 Intake and Output 03/04/17 03/04/17 03/05/17 15:00 23:00 07:00 Intake Total 1419.42 ml 1100.29 ml 684.36 ml Output Total 220 ml 183 ml 224 ml Balance 1199.42 ml 917.29 ml 460.36 ml Exam HEENT exam; supple neck, positive JVD. No lymphadenopathy. Midline trachea. No thyromegaly. Orally intubated. Chest exam; diminished but clear breath sound. S1-S2 audible, no murmurs. Regular rhythm. Abdomen exam; soft, no organomegaly. Bowel sounds are audible. Extremity exam; trace peripheral edema. OVEN BUILDER exam; patient remains unresponsive. Results Result Diagram: 03/05/1751603/05/17516 Results 24 hrs Laboratory Tests Test 03/04/17 15:11 03/04/17 18:22 03/04/17 21:34 03/05/17 00:53 Bedside Glucose 103 105 105 101 Test 03/05/17 05:17 03/05/17 05:43 03/05/17 09:12 White Blood Count 8.1 Red Blood Count 1.53 #L Hemoglobin 7.5 L Hematocrit 23.3 L Mean Corpuscular Volume 87.6 Mean Corpuscular Hemoglobin 28.2 L Mean Corpuscular Hemoglobin Concent 32.2 Red Cell Distribution Width 19.7 H Platelet Count 110 L Mean Platelet Volume 13.5 H Neutrophils % 56.2 Lymphocytes % 35.5 Monocytes % 5.0 Eosinophils % 1.7 Basophils % 0.6 Nucleated Red Blood Cells % 0.0 Neutrophils # 4.5 Lymphocytes # 2.9 Monocytes # 0.4 Eosinophils # 0.1 Basophils # 0.1 Nucleated Red Blood Cells # 0.0 Prothrombin Time 19.3 H Prothrombin Time Ratio 1.5 INR International Normalized Ratio 1.61 Activated Partial Thromboplast Time 45.7 H Sodium Level 138 Potassium Level 3.5 Chloride Level 106 Carbon Dioxide Level 20 L Anion Gap 16 Blood Urea Nitrogen 34 H Creatinine 0.97 Glucose Level 93 Calcium Level 7.7 L Phosphorus Level 6.4 H Magnesium Level 2.2 Total Bilirubin 7.3 H Direct Bilirubin 5.90 H Indirect Bilirubin 1.4 H Aspartate Amino Transf (AST/SGOT) 51 H Alanine Aminotransferase (ALT/SGPT) 26 Alkaline Phosphatase 324 H Total Protein 5.8 L Albumin 1.8 L Globulin 4.00 H Albumin/Globulin Ratio 0.45 Bedside Glucose 96 98 Medications Medications Current Medications Ondansetron HCl (Zofran Inj) 4 mg Q6H PRN IV NAUSEA AND/OR VOMITING Last administered on 02/13/17 00:36; Admin Dose 4 MG; Start 02/11/17 at 10:00 Acetaminophen (Tylenol Tab) 650 mg Q6H PRN PO PAIN LEVEL 1-3 OR FEVER Last administered on 02/25/17 19:51; Admin Dose 650 MG; Start 02/11/17 at 10:00 Docusate Sodium (Colace) 100 mg Q12H PRN PO CONSTIPATION; Start 02/11/17 at 10: 00 Bisacodyl (Dulcolax Supp) 10 mg DAILY PRN [place] CONSTIPATION; Start 02/11/17 at 10 :00 Miscellaneous Information (Pending Santyl Order For Wound Care) This patient prado... PRN PRN XX WOUND CARE; Start 02/11/17 at 19:00 Collagenase (Santyl) 1 applic DAILY TOP Last administered on 03/05/17 09:00; Admin Dose 1 APPLIC; Start 02/12/17 at 13:30 Diphenhydramine HCl 25 mg 25 mg Q6H PRN IV ITCHING Last administered on 03:22; Admin Dose 25 MG; Start 02/12/17 at 14:00 Total Parenteral Nutrition (Tpn) 1,000 ml @ 40 mls/hr Q24H IV Last administered on 02/25/17 18:53; Admin Dose 40 MLS/HR; Start 02/12/17 at 18:00; Status Future Hold Alprazolam 0.25 mg 0.25 mg Q12H PRN PO ANXIETY Last administered on 02/23/17 02:09; Admin Dose 0.25 MG; Start 02/19/17 at 14:00 Sodium Chloride (NS) 250 ml @ 250 mls/hr Q1H PRN IV abp below 90 Last administered on 02/21/17 20:08; Admin Dose 250 MLS/HR; Start 02/21/17 at 17:30 Pantoprazole (Protonix Iv) 40 mg DAILY@06 IV Last administered on 03/05/17 05: 43; Admin Dose 40 MG; Start 02/23/17 at 06:00 Midodrine (Proamatine) 5 mg TID PO Last administered on 03/05/17 08:59; Admin Dose 5 MG; Start 02/23/17 at 13:30 Lorazepam (Ativan) 0.5 mg Q8H PRN IV AGITATION/ANXIETY; Start 02/23/17 at 13:30 Miscellaneous Information DAILY XX Last administered on 03/05/17 09:13; Admin Dose 1 EA; Start 02/25/17 at 09:00 Midazolam HCl 50 ml @ 1 mls/hr TITRATE IV Last administered on 02/25/17 22:54 ; Admin Dose 2 MLS/HR; Start 02/25/17 at 10:00 Fentanyl 100 ml @ 2.5 mls/hr TITRATE IV Last administered on 02/25/17 10:43; Admin Dose 2.5 MLS/HR; Start 02/25/17 at 10:00 Norepinephrine 32 mg/Dextrose 500 ml @ 0 mls/hr TITRATE IV Last administered on 03/04/17 21:10; Admin Dose 13.12 MLS/HR; Start 02/28/17 at 11:30 Phenylephrine HCl 80 mg/Dextrose 500 ml @ 0 mls/hr TITRATE IV Last administered on 02/28/17 14:18; Admin Dose 7.5 MLS/HR; Start 02/28/17 at 11:30 Vancomycin HCl 750 mg/Dextrose/ Water 150 ml @ 75 mls/hr Q48H IVPB Last administered on 03/05/17 01:25; Admin Dose 75 MLS/HR; Start 03/03/17 at 01:00 Meropenem/Sodium Chloride 50 ml @ 100 mls/hr Q24H IVPB Last administered on 21:35; Admin Dose 100 MLS/HR; Start 03/01/17 at 21:00 Dextrose/Sodium Chloride (D5-NS) 1,000 ml @ 75 mls/hr [id number] IV Last administered on 03/05/17 01:05; Admin Dose 75 MLS/HR; Start 03/02/17 at 12:30 Miscellaneous Information 1 ea NOTE XX ; Start 03/02/17 at 12:30 Glucose (Glutose) 15 gm Q15M PRN PO DECREASED GLUCOSE; Start 03/02/17 at 12:30 Glucose (Glutose) 22.5 gm Q15M PRN PO DECREASED GLUCOSE; Start 03/02/17 at 12: 30 Dextrose (D50w Syringe) 25 ml Q15M PRN IV DECREASED GLUCOSE Last administered on 03/02/17 12:18; Admin Dose 25 ML; Start 03/02/17 at 12:30 Dextrose (D50w Syringe) 50 ml Q15M PRN IV DECREASED GLUCOSE; Start 03/02/17 at 12:30 Glucagon (Glucagen) 1 mg Q15M PRN IM DECREASED GLUCOSE; Start 03/02/17 at 12:30 Glucose (Glutose) 15 gm Q15M PRN BUCCAL DECREASED GLUCOSE; Start 03/02/17 at 12 :30 Morphine Sulfate (morphine) 2 mg Q4H PRN IV PAIN LEVEL 7-10; Start 03/02/17 at 14:00 Diagnostic Test (Pha) 1 ea 1 ea Q4 XX Last administered on 03/05/17 09:13; Admin Dose 1 EA; Start 03/04/17 at 09:00 Caspofungin 35 mg/ Sodium Chloride 250 ml @ 250 mls/hr Q24H IVPB Last administered on 03/04/17t 16:03; Admin Dose 250 MLS/HR; Start 03/04/17 at 15:00 Potassium Chloride (KCl 40 MEQ/250 ML NS) 250 ml @ 62.5 mls/hr ONCE ONCE IVPB ; Start 03/05/17 at 09:30; Stop 03/05/17 at 13:29 LISA KOEHLER Mar 05, 2017 11:45
--- NOTE | 2017-03-05 16:25 | PN ---
Date/Time of Note Date/Time of Note DATE: 03/05/17 TIME: 16:22 Assessment/Plan VTE Prophylaxis VTE Prophylaxis Intervention: contraindicated VTE Contraindication Reason: bleeding Lines/Catheters IV Catheter Type (from Nrs): PICC Line Central line still needed: Yes Urinary Cath still in place: Yes Reason Cath still needed: urinary retention Assessment/Plan Assessment/Plan Assessment/Plan * Sepsis * Acute respiratory failure management c/o pulmonary * Anemia hemoglobin * Refused EGD * Pancreatitis with Pancreatic pseudocyst/awaiting drainage * Coagulopathy * H/O tube cholecystostomy * H/O ERCP removal of stone with biliary stent * Plan * Continue present regimen * monitor hemoglobin and hematocrit daily and transfuse per protocol * Spoke with DR Hill regarding plan to feed patient because TPN is not possible because of fungemia,patient will still be on npo * further orders will depend on clinical course * case discussed with DR Hill Subjective 24 Hr Interval Summary Free Text/Dictation * Course reviewed * No untoward events overnight * Latest hemoglobin 7.5 Exam/Review of Systems Vital Signs Vitals Vital Signs Date Time Temp Pulse Resp B/P Pulse Ox O2 Delivery O2 Flow Rate FiO2 03/05/17 16:00 98.7 103 20 84/56 99 Mechanical Ventilator 03/05/17 11:10 30 Intake and Output 03/04/17 03/04/17 03/05/17 15:00 23:00 07:00 Intake Total 1419.42 ml 1100.29 ml 684.36 ml Output Total 220 ml 183 ml 254 ml Balance 1199.42 ml 917.29 ml 430.36 ml Exam Constitutional: frail ENMT: intubated Respiratory: crackles/rales, diminished breath sounds Cardiovascular: nl pulses, regular rate and rhythm Gastrointestinal: distended, non-tender, soft Musculoskeletal: muscle weakness Extremities: edema Skin: rash or lesions Lymph: nl lymph nodes Results Result Diagram: 03/05/1717 03/05/17 0517 Results 24 hrs Laboratory Tests Test 03/04/17 18:22 03/04/17 21:34 03/05/17 00:53 03/05/17 05:17 Bedside Glucose 105 105 101 White Blood Count 8.1 Red Blood Count 1.53 #L Hemoglobin 7.5 L Hematocrit 23.3 L Mean Corpuscular Volume 87.6 Mean Corpuscular Hemoglobin 28.2 L Mean Corpuscular Hemoglobin Concent 32.2 Red Cell Distribution Width 19.7 H Platelet Count 110 L Mean Platelet Volume 13.5 H Neutrophils % 56.2 Lymphocytes % 35.5 Monocytes % 5.0 Eosinophils % 1.7 Basophils % 0.6 Nucleated Red Blood Cells % 0.0 Neutrophils # 4.5 Lymphocytes # 2.9 Monocytes # 0.4 Eosinophils # 0.1 Basophils # 0.1 Nucleated Red Blood Cells # 0.0 Prothrombin Time 19.3 H Prothrombin Time Ratio 1.5 INR International Normalized Ratio 1.61 Activated Partial Thromboplast Time 45.7 H Sodium Level 138 Potassium Level 3.5 Chloride Level 106 Carbon Dioxide Level 20 L Anion Gap 16 Blood Urea Nitrogen 34 H Creatinine 0.97 Glucose Level 93 Calcium Level 7.7 L Phosphorus Level 6.4 H Magnesium Level 2.2 Total Bilirubin 7.3 H Direct Bilirubin 5.90 H Indirect Bilirubin 1.4 H Aspartate Amino Transf (AST/SGOT) 51 H Alanine Aminotransferase (ALT/SGPT) 26 Alkaline Phosphatase 324 H Total Protein 5.8 L Albumin 1.8 L Globulin 4.00 H Albumin/Globulin Ratio 0.45 Test 03/05/17 05:43 03/05/17 09:12 03/05/17 11:27 03/05/17 13:21 Bedside Glucose 96 98 96 Ammonia 29 Medications Medications Current Medications Ondansetron HCl (Zofran Inj) 4 mg Q6H PRN IV NAUSEA AND/OR VOMITING Last administered on 02/13/17 00:36; Admin Dose 4 MG; Start 02/11/17 at 10:00 Acetaminophen (Tylenol Tab) 650 mg Q6H PRN PO PAIN LEVEL 1-3 OR FEVER Last administered on 02/25/17 19:51; Admin Dose 650 MG; Start 02/11/17 at 10:00 Docusate Sodium (Colace) 100 mg Q12H PRN PO CONSTIPATION; Start 02/11/17 at 10: 00 Bisacodyl (Dulcolax Supp) 10 mg DAILY PRN NC CONSTIPATION; Start 02/11/17 at 10 :00 Miscellaneous Information (Pending Santyl Order For Wound Care) This patient prado... PRN PRN XX WOUND CARE; Start 02/11/17 at 19:00 Collagenase (Santyl) 1 applic DAILY TOP Last administered on 03/05/17 09:00; Admin Dose 1 APPLIC; Start 02/12/17 at 13:30 Diphenhydramine HCl 25 mg 25 mg Q6H PRN IV ITCHING Last administered on 03:22; Admin Dose 25 MG; Start 02/12/17 at 14:00 Total Parenteral Nutrition (Tpn) 1,000 ml @ 40 mls/hr Q24H IV Last administered on 02/25/17 18:53; Admin Dose 40 MLS/HR; Start 02/12/17 at 18:00; Status Future Hold Alprazolam 0.25 mg 0.25 mg Q12H PRN PO ANXIETY Last administered on 02/23/17 02:09; Admin Dose 0.25 MG; Start 02/19/17 at 14:00 Sodium Chloride (NS) 250 ml @ 250 mls/hr Q1H PRN IV abp below 90 Last administered on 02/21/17 20:08; Admin Dose 250 MLS/HR; Start 02/21/17 at 17:30 Pantoprazole (Protonix Iv) 40 mg DAILY@06 IV Last administered on 03/05/17 05: 43; Admin Dose 40 MG; Start 02/23/17 at 06:00 Midodrine (Proamatine) 5 mg TID PO Last administered on 03/05/17 13:20; Admin Dose 5 MG; Start 02/23/17 at 13:30 Lorazepam (Ativan) 0.5 mg Q8H PRN IV AGITATION/ANXIETY; Start 02/23/17 at 13:30 Miscellaneous Information DAILY XX Last administered on 03/05/17 09:13; Admin Dose 1 EA; Start 02/25/17 at 09:00 Midazolam HCl 50 ml @ 1 mls/hr TITRATE IV Last administered on 02/25/17 22:54 ; Admin Dose 2 MLS/HR; Start 02/25/17 at 10:00 Fentanyl 100 ml @ 2.5 mls/hr TITRATE IV Last administered on 02/25/17 10:43; Admin Dose 2.5 MLS/HR; Start 02/25/17 at 10:00 Norepinephrine 32 mg/Dextrose 500 ml @ 0 mls/hr TITRATE IV Last administered on 03/04/17 21:10; Admin Dose 13.12 MLS/HR; Start 02/28/17 at 11:30 Phenylephrine HCl 80 mg/Dextrose 500 ml @ 0 mls/hr TITRATE IV Last administered on 02/28/17 14:18; Admin Dose 7.5 MLS/HR; Start 02/28/17 at 11:30 Vancomycin HCl 750 mg/Dextrose/ Water 150 ml @ 75 mls/hr Q48H IVPB Last administered on 03/05/17 01:25; Admin Dose 75 MLS/HR; Start 03/03/17 at 01:00 Meropenem/Sodium Chloride 50 ml @ 100 mls/hr Q24H IVPB Last administered on 21:35; Admin Dose 100 MLS/HR; Start 03/01/17 at 21:00 Dextrose/Sodium Chloride (D5-NS) 1,000 ml @ 75 mls/hr [id number] IV Last administered on 03/05/17 01:05; Admin Dose 75 MLS/HR; Start 03/02/17 at 12:30 Miscellaneous Information 1 ea NOTE XX ; Start 03/02/17 at 12:30 Glucose (Glutose) 15 gm Q15M PRN PO DECREASED GLUCOSE; Start 03/02/17 at 12:30 Glucose (Glutose) 22.5 gm Q15M PRN PO DECREASED GLUCOSE; Start 03/02/17 at 12: 30 Dextrose (D50w Syringe) 25 ml Q15M PRN IV DECREASED GLUCOSE Last administered on 03/02/17 12:18; Admin Dose 25 ML; Start 03/02/17 at 12:30 Dextrose (D50w Syringe) 50 ml Q15M PRN IV DECREASED GLUCOSE; Start 03/02/17 at 12:30 Glucagon (Glucagen) 1 mg Q15M PRN IM DECREASED GLUCOSE; Start 03/02/17 at 12:30 Glucose (Glutose) 15 gm Q15M PRN BUCCAL DECREASED GLUCOSE; Start 03/02/17 at 12 :30 Morphine Sulfate (morphine) 2 mg Q4H PRN IV PAIN LEVEL 7-10; Start 03/02/17 at 14:00 Diagnostic Test (Pha) 1 ea 1 ea Q4 XX Last administered on 03/05/17 13:20; Admin Dose 1 EA; Start 03/04/17 at 09:00 Caspofungin/ Sodium Chloride (Cancidas/NS) 250 ml @ 250 mls/hr Q24H IVPB Last administered on 03/04/17t 16:03; Admin Dose 250 MLS/HR; Start 03/04/17 at 15:00 LUZMARIA SPAIN NP Mar 05, 2017 16:25
[2017-03-05] MEDS: CASPOFUNGIN 35 MG in SOD CHLORIDE 0.9% 250 ML IVPB SCH (16:50)
--- NOTE | 2017-03-05 19:13 | PN ---
Date/Time of Note Date/Time of Note DATE: 03/05/17 TIME: 19:11 Assessment/Plan Lines/Catheters IV Catheter Type (from Nrsg): PICC Line Elder in Place (from Nrsg): Yes Assessment/Plan Chief Complaint/Hosp Course Additional Assessment/Plan Respiratory failure Pancreatitis Infected PICC line Patient will be needing a central line I had a discussion with the son today He is in agreement to proceed with a central line Response complications alternative therapies explained to the patient's son All questions answered We will proceed with placement of a central line Problems: Subjective 24 Hr Interval Summary Constitutional: improved Pain Control: mild Exam/Review of Systems Vital Signs Vitals Vital Signs Date Time Temp Pulse Resp B/P Pulse Ox O2 Delivery O2 Flow Rate FiO2 03/05/17 17:30 100 20 94/55 98 03/05/17 17:20 30 03/05/17 17:00 Mechanical Ventilator 03/05/17 16:00 98.7 Intake and Output 03/04/17 03/04/17 03/05/17 15:00 23:00 07:00 Intake Total 1419.42 ml 1100.29 ml 684.36 ml Output Total 220 ml 183 ml 254 ml Balance 1199.42 ml 917.29 ml 430.36 ml Exam Neck: non-tender, supple Respiratory: clear to auscultation, normal air movement Cardiovascular: nl pulses, regular rate and rhythm Gastrointestinal: nl liver, spleen, non-tender, soft Results Result Diagram: 03/05/17 0517 03/05/17 05 LUIZ SEQUEIRA MD Mar 05, 2017 19:13
--- NOTE | 2017-03-05 19:52 | CONS ---
Date/Time of Note Date/Time of Note DATE: 03/05/17 TIME: 19:49 Assessment/Plan Assessment/Plan Chief Complaint/Hosp Course ID PROGRESS NOTE TOTAL ABX DAY #8 => VANCO IV + MERREM + Cancidas 24H INTERVAL SUMMARY * Fevers resolved, WBC down, * ABD US today: 1. Cystic mass adjacent to or within the body of the pancreas. This may be due to a pseudocyst or cystic neoplasm. 2. Moderate ascites. 3. Right pleural effusion. * (+)Yeast UTI (+)Yeast BCx = Fungemia due to Infected PICC line + UTI * 02/25 BCx(+)Yeast; 02/28/17 BCx (+) Yeast; 03/02 BCx (-) GENERAL: Elderly lady on mechanical ventilation orally intubated. VITAL SIGNS: see below. HEENT: Unremarkable ETT-> secure to Vent CARDIAC: S1, S2, 1/6 systolic ejection murmur CHEST: Diminished air entry bilaterally. ABDOMEN: Mildly distended. Bowel sounds present no guarding or rebound EXTREMITIES: No cyanosis, clubbing edema +2 NEUROLOGIC: Generalized weakness ID ASSESSMENT 86 yo F with: 1. Sepsis w/Fevers >102.+ 02/24 &, leukocytosis, tachycardia => Disseminated candidiasis * BCx 02/25 (+) YEAST => Infx PICC line * 02/25/17 YEAST UTI 2. Acute hypoxic respiratory failure=> Intubated 02/24 in setting of sepsis 3. Severe pancreatitis with pseudocyst, currently on TPN. 4. Acute on chronic anemia status post blood product transfusion 5. Urinary retention 6. s/p VRE UTI 02/15/17 7. s/p acute kidney injury 8. Venous thromboembolism with episode of DVT, status post IVC filter. Repeat Doppler negative for DVT (+)MRSA Nares screen (+)MRSA Stool colonization (+)VRE Stool colonization INVASIVES: PICC, ETT, OGT ABX ALLERGY: PCN CURRENT ABX: #8 => VANCO IV + MERREM + Cancidas ID RECOMMENDATIONS 1. Continue current broad spectrum IV ABX coverage 2. Continue Cancidas -> recommendation remains in place; place alternative access and change the PICC line. 3. Per US: Probably developing pancreatic pseudocyst Problems: Consultation Date/Type/Reason Admit Date/Time Feb 11, 2017 at 05:28 Initial Consult Date 02/21/17 Type of Consultation: ID Referring Provider: BONIFACIO COWART Exam/Review of Systems Vital Signs Vitals Vital Signs Date Time Temp Pulse Resp B/P Pulse Ox O2 Delivery O2 Flow Rate FiO2 03/05/17 17:30 100 20 94/55 98 03/05/17 17:20 30 03/05/17 17:00 Mechanical Ventilator 03/05/17 16:00 98.7 Intake and Output 03/04/17 03/04/17 03/05/17 15:00 23:00 07:00 Intake Total 1419.42 ml 1100.29 ml 684.36 ml Output Total 220 ml 183 ml 254 ml Balance 1199.42 ml 917.29 ml 430.36 ml Results Result Diagram: 03/05/1751603/05/17516 Results 24 hrs Laboratory Tests Test 03/04/17 21:34 03/05/17 00:53 03/05/17 05:17 03/05/17 05:43 Bedside Glucose 105 101 96 White Blood Count 8.1 Red Blood Count 1.53 #L Hemoglobin 7.5 L Hematocrit 23.3 L Mean Corpuscular Volume 87.6 Mean Corpuscular Hemoglobin 28.2 L Mean Corpuscular Hemoglobin Concent 32.2 Red Cell Distribution Width 19.7 H Platelet Count 110 L Mean Platelet Volume 13.5 H Neutrophils % 56.2 Lymphocytes % 35.5 Monocytes % 5.0 Eosinophils % 1.7 Basophils % 0.6 Nucleated Red Blood Cells % 0.0 Neutrophils # 4.5 Lymphocytes # 2.9 Monocytes # 0.4 Eosinophils # 0.1 Basophils # 0.1 Nucleated Red Blood Cells # 0.0 Prothrombin Time 19.3 H Prothrombin Time Ratio 1.5 INR International Normalized Ratio 1.61 Activated Partial Thromboplast Time 45.7 H Sodium Level 138 Potassium Level 3.5 Chloride Level 106 Carbon Dioxide Level 20 L Anion Gap 16 Blood Urea Nitrogen 34 H Creatinine 0.97 Glucose Level 93 Calcium Level 7.7 L Phosphorus Level 6.4 H Magnesium Level 2.2 Total Bilirubin 7.3 H Direct Bilirubin 5.90 H Indirect Bilirubin 1.4 H Aspartate Amino Transf (AST/SGOT) 51 H Alanine Aminotransferase (ALT/SGPT) 26 Alkaline Phosphatase 324 H Total Protein 5.8 L Albumin 1.8 L Globulin 4.00 H Albumin/Globulin Ratio 0.45 Test 03/05/17 09:12 03/05/17 11:27 03/05/17 13:21 03/05/17 19:14 Bedside Glucose 98 96 78 Ammonia 29 Medications Medications Current Medications Ondansetron HCl (Zofran Inj) 4 mg Q6H PRN IV NAUSEA AND/OR VOMITING Last administered on 02/13/17 00:36; Admin Dose 4 MG; Start 02/11/17 at 10:00 Acetaminophen (Tylenol Tab) 650 mg Q6H PRN PO PAIN LEVEL 1-3 OR FEVER Last administered on 02/25/17 19:51; Admin Dose 650 MG; Start 02/11/17 at 10:00 Docusate Sodium (Colace) 100 mg Q12H PRN PO CONSTIPATION; Start 02/11/17 at 10: 00 Bisacodyl (Dulcolax Supp) 10 mg DAILY PRN IN CONSTIPATION; Start 02/11/17 at 10 :00 Miscellaneous Information (Pending Santyl Order For Wound Care) This patient prado... PRN PRN XX WOUND CARE; Start 02/11/17 at 19:00 Collagenase (Santyl) 1 applic DAILY TOP Last administered on 03/05/17 09:00; Admin Dose 1 APPLIC; Start 02/12/17 at 13:30 Diphenhydramine HCl 25 mg 25 mg Q6H PRN IV ITCHING Last administered on 03:22; Admin Dose 25 MG; Start 02/12/17 at 14:00 Total Parenteral Nutrition (Tpn) 1,000 ml @ 40 mls/hr Q24H IV Last administered on 02/25/17 18:53; Admin Dose 40 MLS/HR; Start 02/12/17 at 18:00; Status Future Hold Alprazolam 0.25 mg 0.25 mg Q12H PRN PO ANXIETY Last administered on 02/23/17 02:09; Admin Dose 0.25 MG; Start 02/19/17 at 14:00 Sodium Chloride (NS) 250 ml @ 250 mls/hr Q1H PRN IV abp below 90 Last administered on 02/21/17 20:08; Admin Dose 250 MLS/HR; Start 02/21/17 at 17:30 Pantoprazole (Protonix Iv) 40 mg DAILY@06 IV Last administered on 03/05/17 05: 43; Admin Dose 40 MG; Start 02/23/17 at 06:00 Midodrine (Proamatine) 5 mg TID PO Last administered on 03/05/17 13:20; Admin Dose 5 MG; Start 02/23/17 at 13:30 Lorazepam (Ativan) 0.5 mg Q8H PRN IV AGITATION/ANXIETY; Start 02/23/17 at 13:30 Miscellaneous Information DAILY XX Last administered on 03/05/17 09:13; Admin Dose 1 EA; Start 02/25/17 at 09:00 Midazolam HCl 50 ml @ 1 mls/hr TITRATE IV Last administered on 02/25/17 22:54 ; Admin Dose 2 MLS/HR; Start 02/25/17 at 10:00 Fentanyl 100 ml @ 2.5 mls/hr TITRATE IV Last administered on 02/25/17 10:43; Admin Dose 2.5 MLS/HR; Start 02/25/17 at 10:00 Norepinephrine 32 mg/Dextrose 500 ml @ 0 mls/hr TITRATE IV Last administered on 03/04/17 21:10; Admin Dose 13.12 MLS/HR; Start 02/28/17 at 11:30 Phenylephrine HCl 80 mg/Dextrose 500 ml @ 0 mls/hr TITRATE IV Last administered on 02/28/17 14:18; Admin Dose 7.5 MLS/HR; Start 02/28/17 at 11:30 Vancomycin HCl 750 mg/Dextrose/ Water 150 ml @ 75 mls/hr Q48H IVPB Last administered on 03/05/17 01:25; Admin Dose 75 MLS/HR; Start 03/03/17 at 01:00 Meropenem/Sodium Chloride 50 ml @ 100 mls/hr Q24H IVPB Last administered on 21:35; Admin Dose 100 MLS/HR; Start 03/01/17 at 21:00 Dextrose/Sodium Chloride (D5-NS) 1,000 ml @ 75 mls/hr [id number] IV Last administered on 03/05/17 01:05; Admin Dose 75 MLS/HR; Start 03/02/17 at 12:30 Miscellaneous Information 1 ea NOTE XX ; Start 03/02/17 at 12:30 Glucose (Glutose) 15 gm Q15M PRN PO DECREASED GLUCOSE; Start 03/02/17 at 12:30 Glucose (Glutose) 22.5 gm Q15M PRN PO DECREASED GLUCOSE; Start 03/02/17 at 12: 30 Dextrose (D50w Syringe) 25 ml Q15M PRN IV DECREASED GLUCOSE Last administered on 03/02/17 12:18; Admin Dose 25 ML; Start 03/02/17 at 12:30 Dextrose (D50w Syringe) 50 ml Q15M PRN IV DECREASED GLUCOSE; Start 03/02/17 at 12:30 Glucagon (Glucagen) 1 mg Q15M PRN IM DECREASED GLUCOSE; Start 03/02/17 at 12:30 Glucose (Glutose) 15 gm Q15M PRN BUCCAL DECREASED GLUCOSE; Start 03/02/17 at 12 :30 Morphine Sulfate (morphine) 2 mg Q4H PRN IV PAIN LEVEL 7-10; Start 03/02/17 at 14:00 Diagnostic Test (Pha) 1 ea 1 ea Q4 XX Last administered on 03/05/17 19:15; Admin Dose 1 EA; Start 03/04/17 at 09:00 Caspofungin/ Sodium Chloride (Cancidas/NS) 250 ml @ 250 mls/hr Q24H IVPB Last administered on 03/05/17 16:50; Admin Dose 250 MLS/HR; Start 03/04/17 at 15:00 DEBORA WILLOUGHBY NP Mar 05, 2017 19:52
--- NOTE | 2017-03-05 19:58 | OPR ---
Date/Time of Note Date/Time of Note DATE: 03/05/17 TIME: 19:57 Operative Report Procedure Date: Mar 05, 2017 Preoperative Diagnosis Respiratory failure Postoperative Diagnosis Respiratory failure Operation Performed Left subclavian vein central line placement Surgeon: LUIZ SEQUEIRA MD Anesthesia: other Estimated Blood Loss: none Specimens None Grafts/Implants None Tubes/Drains None Pt Condition Post Procedure: stable Indications Respiratory for Operative\Procedure Findings Patient was placed supine position prepped and draped in usual sterile fashion 1 % lidocaine was discharged the operation for local anesthesia access was gained the left subclavian vein guidewire was advanced through without any difficulty subcutaneous tissues dilated central line advanced to 15 cm and secured to skin using silk sutures all ports of the catheter were aspirated and injected using saline solution patient tolerated procedure well end of dictation LUIZ SEQUEIRA MD Mar 05, 2017 19:58
[2017-03-05] MEDS: MEROPENEM 500MG/50 ML (PMX) 50 ML IVPB SCH (20:57)
--- NOTE | 2017-03-05 23:28 | RADRPT ---
PROCEDURE: Chest. CLINICAL INDICATION: Chest pain. TECHNIQUE: Single frontal view of the chest was obtained. COMPARISON: 03/02/2017. FINDINGS: There is an endotracheal tube 3 cm above the kavon. There is a nasogastric tube extending to the s tomach. There is a left subclavian central venous catheter within the left brachiocephalic vein. T here is a right-sided PICC line extending to the SVC. The cardiac silhouette is magnified. The aor tic arch is calcified. There is bony venous congestion with interstitial edema. There are bilatera l moderate pleural effusion with underlying atelectasis. There is no pneumothorax. IMPRESSION: Pulmonary venous congestion with interstitial edema, slightly increased. Bilateral moderate pleural effusions with underlying atelectasis, slightly increased. Left subclavian central venous catheter within the left brachiocephalic vein. Endotracheal and nasogastric tubes in place. Right-sided PICC line in place. .Suhail Rodriguez MD, Date Time Electronically viewed and signed by .Suhail Rodriguez MD, on 03/05/2017 23:28 .T/
[2017-03-06] VITALS (95 sets, daily range): BP systolic 85–166; BP diastolic 25–98; PULSE 65–104; RESP 13–31
[2017-03-06] MEDS: IPRATROPIUM (HFA) 12.9 GM INHALER INH SCH ×3 (00:51→16:40)
[2017-03-06] MEDS: ALBUTEROL 18 GM INHALER INH SCH ×3 (00:51→16:40)
[2017-03-06] MEDS: ACCU-CHEK XX SCH ×6 (01:00→21:00)
[2017-03-06 05:52] LABS: ALBUMIN 1.8 g/dl (3.3-4.9); ALBUMIN/GLOBULIN RATIO 0.5; BILIRUBIN,DIRECT 5.6 mg/dl (0.00-0.20); BILIRUBIN,INDIRECT 1.7 mg/dl (0-1.1); BILIRUBIN,TOTAL 7.3 mg/dl (0.2-1.3); CALCIUM 7.7 mg/dl (8.4-10.2); CREATININE 0.92 mg/dl (0.44-1.00); POTASSIUM 3.7 mmol/L (3.5-5.1); TOTAL PROTEIN 5.4 g/dl (6.1-8.1)
[2017-03-06] MEDS: PANTOPRAZOLE 40 MG INJ IV SCH (06:56)
[2017-03-06 07:30] LABS: ABNORMAL IP MESSAGE 1; BASOPHILS % 0.3 % (0.0-2.0); EOSINOPHILS # 0.2 10^3/ul (0.0-0.5); EOSINOPHILS % 2.1 % (0.0-7.0); LYMPHOCYTES # 2.7 10^3/ul (0.8-2.9); LYMPHOCYTES % 28.4 % (15.0-51.0); MEAN CORPUSCULAR HEMOGLOBIN 28.4 pg (29.0-33.0); MEAN CORPUSCULAR HGB CONC 32.9 g/dl (32.0-37.0); MEAN CORPUSCULAR VOLUME 86.4 fl (82.0-101.0); MONOCYTE # 0.6 10^3/ul (0.3-0.9); MONOCYTES % 5.8 % (0.0-11.0); NEUTROPHIL # 5.9 10^3/ul (1.6-7.5); NEUTROPHILS % 62.8 % (39.0-77.0); RED CELL DISTRIBUTION WIDTH 19.7 % (11.5-14.5)
[2017-03-06 07:51] LABS: POSITIVE DIFF @See below; RED BLOOD COUNT 1.21 10^6/ul (4.20-5.40); WHITE BLOOD COUNT 8.3 10^3/ul (4.8-10.8)
[2017-03-06 07:52] LABS: HEMOGLOBIN 6.9 g/dl (12.0-16.0); MEAN PLATELET VOLUME 13.2 fl (7.4-10.4); PLATELET COUNT 102 10^3/UL (140-415)
[2017-03-06] MEDS ORDERED: POTASSIUM CHLORIDE 20 MEQ in SOD CHLORIDE 0.9% 100 ML IVPB ONE (09:00)
[2017-03-06] MEDS ORDERED: POTASSIUM CHLORIDE 50 ML IVPB ONE (09:00)
[2017-03-06] MEDS: COLLAGENASE 30 GM TUBE TOP SCH (09:00)
[2017-03-06] MEDS: [UNRECOGNIZED DRUG - REMARK] XX SCH (09:00)
--- NOTE | 2017-03-06 09:04 | PN ---
Date/Time of Note Date/Time of Note DATE: 03/06/17 TIME: 08:12 Assessment/Plan VTE Prophylaxis VTE Prophylaxis Intervention: SCD's Lines/Catheters IV Catheter Type (from [facility]): Central Line (03/05) Central line still needed: Yes Urinary Cath still in place: Yes Reason Cath still needed: other (indicate) (Renal function monitoring, critically ill) Assessment/Plan Assessment/Plan 86 yo female with: 1. Acute Respiratory failure, in setting of pleural effusions, atelectasis, severe anemia and Norbert glabrata fungemia. Poor overall clinical status. Patient in ICU on mechanical ventilation due to deteriorated respiratory status. Currently improving with FiO2 down to 30%, and pressor x1. CXR with pulmonary vascular congestion, small to moderate pleural effusions even s/p thoracentesis 02/20 with -300 cc and another right thoracentesis 02/23 with removal of less than 100 cc, Continue Vancomycin, Meropenem and Cancidas. Continue to monitor, pulmonary following. 2. Sepsis and Septic shock, from Norbert glabrata fungemia and septicemia . She does have a risk factors but this is the first time her blood cultures are growing yeast, she has been on Diflucan throughout her admission and at discharge from the outside hospital. Patient has been now switched to Cancidas as of last week. PICC line finally removed last night, tip sent for culture, patient has a central line currently. Hopefully in the next 2-3 days if blood cultures remain negative, will see if patient can have a PICC line replaced as likely she will need TPN resumed. Repeat blood cultures 02/28 with 1/2 blood cultures still positive with norbert glabrata, it is unclear if it is culture from the PICC line or peripheral. Repeat blood cultures again 03/02, 1 from PICC line and one from peripheral so far NGTD. Continue Cancidas, Dr. Murphy from infectious diseases following. Patient is currently intubated, off sedation , much more responsive today. I will discuss with infectious disease if TPN can be resumed through central line. On 1 pressor, Levophed down to 9 mcg/min. 3. S/p Severe pancreatitis with pseudocyst, holding TPN in setting of persistent candidemia. Will attempt tube feeding. CAT scan of the abdomen and pelvis has been compared to the one done at [facility] approximately 3 weeks ago, cholecystostomy tube has been removed however there is concern as the patient has a new fluid collection in addition of the previous pseudocyst also previous pseudocyst seems to have increased in size and there is concern for possible infection. We were planing for drainage of 2nd cyst since admission, but INR at 1.4 and patient clinically declined further now intubated and on 1 pressor with ongoing sepsis. Per Surgery note last week, ? bleeding in pseudocyst but patient was not stable to get bleeding scan due to fact she was on BiPAP Continue Meropenem, Vancomycin and Cancidas. Follow-up infectious disease recommendations today. 4. Acute on chronic anemia status post blood product transfusion at least twice during this admission, Hb at 6.9 today and platelets in the 100's now. Repeat CBC pending, plan to transfuse if Hb<7 Bleeding scan was not done due to respiratory distress and needs for continuous BiPAP, she is now intubated and improving, is still needed will discuss with GI. No signs of acute bleeding so far however patient does have positive fecal occult blood. Appreciate GI consult, patient and her son declined EGD prior. Appreciate recommendations of Dr Hannah, may still needs CT guided drainage of 2nd pseudocyst by IR, however patient now with hemodynamic instability and intubated, likely also coagulopathic from a septic state, not a candidate for IR procedure yet. 5. Hypotension/septic shock Based on records patient has been actually put on midodrine 5 mg p.o. tid due to ongoing hypotension even at discharge from [facility], Now the patient intubated, and septic with candidemia with Norbert glabrata, continue Levophed for blood pressure support, we have been able to titrate down as patient improving and responding to albumin and IV fluids of note she still getting Midodrine per OGT Continue current antibiotics, appreciate infectious disease assistance Poor fair and still guarded but some improvement have been seen over the past 3 days. 6. Acute kidney injury, in setting of septic shock and ongoing candidemia. Urine output picked up yesterday and renal function has improved while getting to daily boluses of albumin x 4 days now and on IV fluids Continue D5NS at 75 cc/hr and also repeating albumin bolus today. Anasarca is noted that the patient needs intravascular volume repletion with IV fluids and occasional albumin boluses to try to preserve her renal function as much as possible Norbert glabrata positive urine culture last week, Elder catheter has been changed 7. Hyponatremia, Nutrition: Resolved, will start tube feeding if possible We had to hold off TPN due to current fungemia. Infected PICC removed and patient now has central line in place, will discuss with ID if safe to resume TPN now that recent blood cultures have been negative. Appreciate nephrology assistance from Dr. Partida 8. Sinus Tachycardia: Per report from [facility] patient has sinus tachycardia. Resolved as patient in less distress currently after intubation and sedation. 9. Venous thromboembolism with episode of DVT, status post IVC filter. Repeat Doppler negative for DVT 10. Mild coagulopathy: PTT wnl, Vitamin K and FFP as needed for INR 1.4 but to be noted patient with VTE, s/p IVC filter. Current coagulopathy likely related to DIC. Monitor. 11. Hyperbilirubinemia, primarily direct, also slight elevation of alkaline phosphatase. Patient's hemoglobin is stable currently, she seems to be out of DIC, liver ultrasound showing pancreatic pseudocyst, gastroenterology following. Prophylaxis: Protonix for GI prophylaxis, SCDs and status post IVC filter for DVT prophylaxis Disposition: ICU now, intubated on mechanical ventilation , attempted repeat thoracentesis right pleural effusion with very minimal output. Now with fungemia Patient's prognosis is slightly better today, she is much more awake, repeat blood cultures have been negative so far, PICC line has been removed with a central line placed overnight The DPOA, Jesus Muller, has been updated today, this morning he seems to be more receptive to medical recommendations, he is able to even repeat information that is given to him showing that he is understanding the current information. Hopefully from now going forward, the relationship between the DPOA and the treatment team will be less tense. Full code. Subjective 24 Hr Interval Summary Free Text/Dictation Patient more awake this morning, she has been improving slowly steadily over the past 3 days. On 9 mcg/min of Levophed and FiO2 down to 30% on vent Hemoglobin at 6.9 this morning, will recheck CBC and transfuse as needed Status post central line placement overnight, tip from a previous PICC line sent for culture, will clarify with infectious disease if can resume TPN Per gastroenterology NO oral feeding yet Exam/Review of Systems Vital Signs Vitals Vital Signs Date Time Temp Pulse Resp B/P Pulse Ox O2 Delivery O2 Flow Rate FiO2 03/06/17 05:30 89 21 98 30 03/06/17 03:00 110/60 03/06/17 02:15 Mechanical Ventilator 03/06/17 00:00 98.9 Intake and Output 03/05/17 03/05/17 03/06/17 15:00 23:00 07:00 Intake Total 1061.21 ml 725.56 ml 478.08 ml Output Total 240 ml 140 ml Balance 821.21 ml 585.56 ml 478.08 ml Exam Constitutional: alert (More alert), frail, oriented (x2) Respiratory: diminished breath sounds (Bilateral bases) Cardiovascular: nl pulses, regular rate and rhythm Gastrointestinal: non-tender, other (Pancreatic pseudocyst seen on ultrasound liver), soft Musculoskeletal: swelling (Anasarca +2) Extremities: edema (Anasarca +2), normal pulses Results Result Diagram: 03/06/17 0415 03/06/17 0415 Results 24 hrs Laboratory Tests Test 03/05/17 09:12 03/05/17 11:27 03/05/17 13:21 03/05/17 19:14 Bedside Glucose 98 96 78 Ammonia 29 Test 03/05/17 20:54 03/06/17 01:38 03/06/17 04:15 03/06/17 04:22 Bedside Glucose 79 84 88 White Blood Count 8.3 Red Blood Count 1.21 #L Hemoglobin 6.9 *L Hematocrit 21.0 L Mean Corpuscular Volume 86.4 Mean Corpuscular Hemoglobin 28.4 L Mean Corpuscular Hemoglobin Concent 32.9 Red Cell Distribution Width 19.7 H Platelet Count 102 L Mean Platelet Volume 13.2 H Neutrophils % 62.8 Lymphocytes % 28.4 Monocytes % 5.8 Eosinophils % 2.1 Basophils % 0.3 Nucleated Red Blood Cells % 0.0 Neutrophils # 5.9 Lymphocytes # 2.7 Monocytes # 0.6 Eosinophils # 0.2 Basophils # 0.0 Nucleated Red Blood Cells # 0.0 Sodium Level 141 Potassium Level 3.7 Chloride Level 111 H Carbon Dioxide Level 20 L Anion Gap 14 Blood Urea Nitrogen 28 H Creatinine 0.92 Glucose Level 74 Calcium Level 7.7 L Phosphorus Level 5.7 H Magnesium Level 2.1 Total Bilirubin 7.3 H Direct Bilirubin 5.60 H Indirect Bilirubin 1.7 H Aspartate Amino Transf (AST/SGOT) 56 H Alanine Aminotransferase (ALT/SGPT) 28 Alkaline Phosphatase 296 H Total Protein 5.4 L Albumin 1.8 L Globulin 3.60 H Albumin/Globulin Ratio 0.50 Medications Medications Current Medications Ondansetron HCl (Zofran Inj) 4 mg Q6H PRN IV NAUSEA AND/OR VOMITING Last administered on 02/13/17 00:36; Admin Dose 4 MG; Start 02/11/17 at 10:00 Acetaminophen (Tylenol Tab) 650 mg Q6H PRN PO PAIN LEVEL 1-3 OR FEVER Last administered on 02/25/17 19:51; Admin Dose 650 MG; Start 02/11/17 at 10:00 Docusate Sodium (Colace) 100 mg Q12H PRN PO CONSTIPATION; Start 02/11/17 at 10: 00 Bisacodyl (Dulcolax Supp) 10 mg DAILY PRN MI CONSTIPATION; Start 02/11/17 at 10 :00 Miscellaneous Information (Pending Santyl Order For Wound Care) This patient prado... PRN PRN XX WOUND CARE; Start 02/11/17 at 19:00 Collagenase (Santyl) 1 applic DAILY TOP Last administered on 03/05/17 09:00; Admin Dose 1 APPLIC; Start 02/12/17 at 13:30 Diphenhydramine HCl 25 mg 25 mg Q6H PRN IV ITCHING Last administered on 03:22; Admin Dose 25 MG; Start 02/12/17 at 14:00 Total Parenteral Nutrition (Tpn) 1,000 ml @ 40 mls/hr Q24H IV Last administered on 02/25/17 18:53; Admin Dose 40 MLS/HR; Start 02/12/17 at 18:00; Status Future Hold Alprazolam 0.25 mg 0.25 mg Q12H PRN PO ANXIETY Last administered on 02/23/17 02:09; Admin Dose 0.25 MG; Start 02/19/17 at 14:00 Sodium Chloride (NS) 250 ml @ 250 mls/hr Q1H PRN IV abp below 90 Last administered on 02/21/17 20:08; Admin Dose 250 MLS/HR; Start 02/21/17 at 17:30 Pantoprazole (Protonix Iv) 40 mg DAILY@06 IV Last administered on 03/06/17 06: 56; Admin Dose 40 MG; Start 02/23/17 at 06:00 Midodrine (Proamatine) 5 mg TID PO Last administered on 03/05/17 21:02; Admin Dose 5 MG; Start 02/23/17 at 13:30 Lorazepam (Ativan) 0.5 mg Q8H PRN IV AGITATION/ANXIETY; Start 02/23/17 at 13:30 Miscellaneous Information DAILY XX Last administered on 03/05/17 09:13; Admin Dose 1 EA; Start 02/25/17 at 09:00 Midazolam HCl 50 ml @ 1 mls/hr TITRATE IV Last administered on 02/25/17 22:54 ; Admin Dose 2 MLS/HR; Start 02/25/17 at 10:00 Fentanyl 100 ml @ 2.5 mls/hr TITRATE IV Last administered on 02/25/17 10:43; Admin Dose 2.5 MLS/HR; Start 02/25/17 at 10:00 Norepinephrine 32 mg/Dextrose 500 ml @ 0 mls/hr TITRATE IV Last administered on 03/04/17 21:10; Admin Dose 13.12 MLS/HR; Start 02/28/17 at 11:30 Phenylephrine HCl 80 mg/Dextrose 500 ml @ 0 mls/hr TITRATE IV Last administered on 02/28/17 14:18; Admin Dose 7.5 MLS/HR; Start 02/28/17 at 11:30 Vancomycin HCl 750 mg/Dextrose/ Water 150 ml @ 75 mls/hr Q48H IVPB Last administered on 03/05/17 01:25; Admin Dose 75 MLS/HR; Start 03/03/17 at 01:00 Meropenem/Sodium Chloride 50 ml @ 100 mls/hr Q24H IVPB Last administered on 20:57; Admin Dose 100 MLS/HR; Start 03/01/17 at 21:00 Dextrose/Sodium Chloride (D5-NS) 1,000 ml @ 75 mls/hr [id number] IV Last administered on 03/05/17 21:03; Admin Dose 75 MLS/HR; Start 03/02/17 at 12:30 Miscellaneous Information 1 ea NOTE XX ; Start 03/02/17 at 12:30 Glucose (Glutose) 15 gm Q15M PRN PO DECREASED GLUCOSE; Start 03/02/17 at 12:30 Glucose (Glutose) 22.5 gm Q15M PRN PO DECREASED GLUCOSE; Start 03/02/17 at 12: 30 Dextrose (D50w Syringe) 25 ml Q15M PRN IV DECREASED GLUCOSE Last administered on 03/02/17 12:18; Admin Dose 25 ML; Start 03/02/17 at 12:30 Dextrose (D50w Syringe) 50 ml Q15M PRN IV DECREASED GLUCOSE; Start 03/02/17 at 12:30 Glucagon (Glucagen) 1 mg Q15M PRN IM DECREASED GLUCOSE; Start 03/02/17 at 12:30 Glucose (Glutose) 15 gm Q15M PRN BUCCAL DECREASED GLUCOSE; Start 03/02/17 at 12 :30 Morphine Sulfate (morphine) 2 mg Q4H PRN IV PAIN LEVEL 7-10; Start 03/02/17 at 14:00 Diagnostic Test (Pha) 1 ea 1 ea Q4 XX Last administered on 03/05/17 21:03; Admin Dose 1 EA; Start 03/04/17 at 09:00 Caspofungin/ Sodium Chloride (Cancidas/NS) 250 ml @ 250 mls/hr Q24H IVPB Last administered on 03/05/17 16:50; Admin Dose 250 MLS/HR; Start 03/04/17 at 15:00 Procedures Procedures PROCEDURE: Chest. CLINICAL INDICATION: Chest pain. TECHNIQUE: Single frontal view of the chest was obtained. COMPARISON: 03/02/2017. FINDINGS: There is an endotracheal tube 3 cm above the kavon. There is a nasogastric tube extending to the stomach. There is a left subclavian central venous catheter within the left brachiocephalic vein. There is a right-sided PICC line extending to the SVC. The cardiac silhouette is magnified. The aortic arch is calcified. There is bony venous congestion with interstitial edema. There are bilateral moderate pleural effusion with underlying atelectasis. There is no pneumothorax. IMPRESSION: Pulmonary venous congestion with interstitial edema, slightly increased. Bilateral moderate pleural effusions with underlying atelectasis, slightly increased. Left subclavian central venous catheter within the left brachiocephalic vein. Endotracheal and nasogastric tubes in place. Right-sided PICC line in place. .Suhail Rodriguez MD, Date Time Electronically viewed and signed by .Suhail Rodriguez MD, on 03/05/2017 23:28 .Nilay/ BONIFACIO COWART Mar 06, 2017 08:28
[2017-03-06] MEDS: MIDODRINE 5 MG TAB PO SCH ×3 (09:19→21:14)
[2017-03-06] MEDS: BALSAM PERU/CASTOR OIL 60 GM TUBE TOP SCH (09:20)
[2017-03-06] MEDS: DEXTROSE 5%-0.9% NACL 1,000 ML IV SCH ×2 (09:21→15:07)
[2017-03-06 10:03] LABS: ABNORMAL IP MESSAGE 1; BASOPHILS % 0.3 % (0.0-2.0); EOSINOPHILS # 0.2 10^3/ul (0.0-0.5); EOSINOPHILS % 2.3 % (0.0-7.0); HEMOGLOBIN 7.1 g/dl (12.0-16.0); LYMPHOCYTES # 2.6 10^3/ul (0.8-2.9); LYMPHOCYTES % 29.9 % (15.0-51.0); MEAN CORPUSCULAR HGB CONC 32.3 g/dl (32.0-37.0); MEAN CORPUSCULAR VOLUME 86.6 fl (82.0-101.0); MONOCYTE # 0.4 10^3/ul (0.3-0.9); MONOCYTES % 4.4 % (0.0-11.0); NEUTROPHIL # 5.5 10^3/ul (1.6-7.5); NEUTROPHILS % 62.3 % (39.0-77.0); POSITIVE DIFF @See below; RED CELL DISTRIBUTION WIDTH 19.7 % (11.5-14.5)
[2017-03-06 10:04] LABS: MEAN PLATELET VOLUME 13.9 fl (7.4-10.4); PLATELET COUNT 108 10^3/UL (140-415); RED BLOOD COUNT 1.96 10^6/ul (4.20-5.40); WHITE BLOOD COUNT 8.6 10^3/ul (4.8-10.8)
[2017-03-06] MEDS ORDERED: ALBUMIN HUMAN 5% 250 ML IV ONE (11:00)
--- NOTE | 2017-03-06 11:44 | CONS ---
Date/Time of Note Date/Time of Note DATE: 03/06/17 TIME: 11:42 Assessment/Plan Assessment/Plan Additional Assessment/Plan Ventilator setting; AC of 16, tidal volume 450, PEEP of 5, 30% FiO2. Next Patient currently on Levophed at 6 mics per minute, as well as TPN. Assessment and recommendations; next 1. Patient admitted with severe sepsis from pancreatitis as well as UTI. 2. Persistent hypotension. 3. Extremely poor mental status. 4. Anemia. 5. Ileus. Continue current supportive care. Prognosis is extremely poor. CODE STATUS needs to be discussed with the family. Consultation Date/Type/Reason Admit Date/Time Feb 11, 2017 at 05:28 Initial Consult Date 02/20/17 Type of Consultation: Pulmonary/critical care Referring Provider: BONIFACIO COWART 24 HR Interval Summary Free Text/Dictation Patient condition remains extremely critical. Remains completely unresponsive. Still requiring pressor support for blood pressure maintenance. General exam; elderly woman, orally intubated, unresponsive, currently in no distress. Exam/Review of Systems Vital Signs Vitals Vital Signs Date Time Temp Pulse Resp B/P Pulse Ox O2 Delivery O2 Flow Rate FiO2 03/06/17 11:00 90 18 88/55 98 Mechanical Ventilator 03/06/17 08:45 97.5 03/06/17 05:30 30 Intake and Output 03/05/17 03/05/17 03/06/17 15:00 23:00 07:00 Intake Total 1061.21 ml 725.56 ml 557.76 ml Output Total 240 ml 140 ml 50 ml Balance 821.21 ml 585.56 ml 507.76 ml Exam HEENT exam; supple neck, positive JVD. No lymphadenopathy. Midline trachea. No thyromegaly. Orally intubated. Chest exam; diminished breath sounds throughout. S1-S2 audible, no murmurs. Regular rhythm. Abdomen exam; soft, no organomegaly. Bowel sounds are absent. Abdomen is nondistended. Extremity exam; 1+ peripheral edema. Patient does have multiple ecchymosis involving all 4 extremities. STAGE PRODUCER exam; patient remains unresponsive. Results Result Diagram: 03/06/17 0840 03/06/17 0415 Results 24 hrs Laboratory Tests Test 03/05/17 13:21 03/05/17 19:14 03/05/17 20:54 03/06/17 01:38 Bedside Glucose 96 78 79 84 Test 03/06/17 04:15 03/06/17 04:22 03/06/17 08:40 03/06/17 09:18 White Blood Count 8.3 8.6 Red Blood Count 1.21 #L 1.96 #L Hemoglobin 6.9 *L 7.1 L Hematocrit 21.0 L 22.0 L Mean Corpuscular Volume 86.4 86.6 Mean Corpuscular Hemoglobin 28.4 L 28.0 L Mean Corpuscular Hemoglobin Concent 32.9 32.3 Red Cell Distribution Width 19.7 H 19.7 H Platelet Count 102 L 108 L Mean Platelet Volume 13.2 H 13.9 H Neutrophils % 62.8 62.3 Lymphocytes % 28.4 29.9 Monocytes % 5.8 4.4 Eosinophils % 2.1 2.3 Basophils % 0.3 0.3 Nucleated Red Blood Cells % 0.0 0.0 Neutrophils # 5.9 5.5 Lymphocytes # 2.7 2.6 Monocytes # 0.6 0.4 Eosinophils # 0.2 0.2 Basophils # 0.0 0.0 Nucleated Red Blood Cells # 0.0 0.0 Sodium Level 141 Potassium Level 3.7 Chloride Level 111 H Carbon Dioxide Level 20 L Anion Gap 14 Blood Urea Nitrogen 28 H Creatinine 0.92 Glucose Level 74 Calcium Level 7.7 L Phosphorus Level 5.7 H Magnesium Level 2.1 Total Bilirubin 7.3 H Direct Bilirubin 5.60 H Indirect Bilirubin 1.7 H Aspartate Amino Transf (AST/SGOT) 56 H Alanine Aminotransferase (ALT/SGPT) 28 Alkaline Phosphatase 296 H Total Protein 5.4 L Albumin 1.8 L Globulin 3.60 H Albumin/Globulin Ratio 0.50 Bedside Glucose 88 90 Medications Medications Current Medications Ondansetron HCl (Zofran Inj) 4 mg Q6H PRN IV NAUSEA AND/OR VOMITING Last administered on 02/13/17 00:36; Admin Dose 4 MG; Start 02/11/17 at 10:00 Acetaminophen (Tylenol Tab) 650 mg Q6H PRN PO PAIN LEVEL 1-3 OR FEVER Last administered on 02/25/17 19:51; Admin Dose 650 MG; Start 02/11/17 at 10:00 Docusate Sodium (Colace) 100 mg Q12H PRN PO CONSTIPATION; Start 02/11/17 at 10: 00 Bisacodyl (Dulcolax Supp) 10 mg DAILY PRN CO CONSTIPATION; Start 02/11/17 at 10 :00 Miscellaneous Information (Pending Santyl Order For Wound Care) This patient prado... PRN PRN XX WOUND CARE; Start 02/11/17 at 19:00 Collagenase (Santyl) 1 applic DAILY TOP Last administered on 03/05/17 09:00; Admin Dose 1 APPLIC; Start 02/12/17 at 13:30 Diphenhydramine HCl 25 mg 25 mg Q6H PRN IV ITCHING Last administered on 03:22; Admin Dose 25 MG; Start 02/12/17 at 14:00 Total Parenteral Nutrition (Tpn) 1,000 ml @ 40 mls/hr Q24H IV Last administered on 02/25/17 18:53; Admin Dose 40 MLS/HR; Start 02/12/17 at 18:00; Status Future Hold Alprazolam 0.25 mg 0.25 mg Q12H PRN PO ANXIETY Last administered on 02/23/17 02:09; Admin Dose 0.25 MG; Start 02/19/17 at 14:00 Sodium Chloride (NS) 250 ml @ 250 mls/hr Q1H PRN IV abp below 90 Last administered on 02/21/17 20:08; Admin Dose 250 MLS/HR; Start 02/21/17 at 17:30 Pantoprazole (Protonix Iv) 40 mg DAILY@06 IV Last administered on 03/06/17 06: 56; Admin Dose 40 MG; Start 02/23/17 at 06:00 Midodrine (Proamatine) 5 mg TID PO Last administered on 03/06/17 09:19; Admin Dose 5 MG; Start 02/23/17 at 13:30 Lorazepam (Ativan) 0.5 mg Q8H PRN IV AGITATION/ANXIETY; Start 02/23/17 at 13:30 Miscellaneous Information DAILY XX Last administered on 03/05/17 09:13; Admin Dose 1 EA; Start 02/25/17 at 09:00 Midazolam HCl 50 ml @ 1 mls/hr TITRATE IV Last administered on 02/25/17 22:54 ; Admin Dose 2 MLS/HR; Start 02/25/17 at 10:00 Fentanyl 100 ml @ 2.5 mls/hr TITRATE IV Last administered on 02/25/17 10:43; Admin Dose 2.5 MLS/HR; Start 02/25/17 at 10:00 Norepinephrine 32 mg/Dextrose 500 ml @ 0 mls/hr TITRATE IV Last administered on 03/04/17 21:10; Admin Dose 13.12 MLS/HR; Start 02/28/17 at 11:30 Phenylephrine HCl 80 mg/Dextrose 500 ml @ 0 mls/hr TITRATE IV Last administered on 02/28/17 14:18; Admin Dose 7.5 MLS/HR; Start 02/28/17 at 11:30 Vancomycin HCl 750 mg/Dextrose/ Water 150 ml @ 75 mls/hr Q48H IVPB Last administered on 03/05/17 01:25; Admin Dose 75 MLS/HR; Start 03/03/17 at 01:00 Meropenem/Sodium Chloride 50 ml @ 100 mls/hr Q24H IVPB Last administered on 20:57; Admin Dose 100 MLS/HR; Start 03/01/17 at 21:00 Dextrose/Sodium Chloride (D5-NS) 1,000 ml @ 75 mls/hr [id number] IV Last administered on 03/05/17 21:03; Admin Dose 75 MLS/HR; Start 03/02/17 at 12:30 Miscellaneous Information 1 ea NOTE XX ; Start 03/02/17 at 12:30 Glucose (Glutose) 15 gm Q15M PRN PO DECREASED GLUCOSE; Start 03/02/17 at 12:30 Glucose (Glutose) 22.5 gm Q15M PRN PO DECREASED GLUCOSE; Start 03/02/17 at 12: 30 Dextrose (D50w Syringe) 25 ml Q15M PRN IV DECREASED GLUCOSE Last administered on 03/02/17 12:18; Admin Dose 25 ML; Start 03/02/17 at 12:30 Dextrose (D50w Syringe) 50 ml Q15M PRN IV DECREASED GLUCOSE; Start 03/02/17 at 12:30 Glucagon (Glucagen) 1 mg Q15M PRN IM DECREASED GLUCOSE; Start 03/02/17 at 12:30 Glucose (Glutose) 15 gm Q15M PRN BUCCAL DECREASED GLUCOSE; Start 03/02/17 at 12 :30 Morphine Sulfate (morphine) 2 mg Q4H PRN IV PAIN LEVEL 7-10; Start 03/02/17 at 14:00 Diagnostic Test (Pha) 1 ea 1 ea Q4 XX Last administered on 03/06/17 09:18; Admin Dose 1 EA; Start 03/04/17 at 09:00 Caspofungin/ Sodium Chloride (Cancidas/NS) 250 ml @ 250 mls/hr Q24H IVPB Last administered on 03/05/17 16:50; Admin Dose 250 MLS/HR; Start 03/04/17 at 15:00 Miscellaneous Information VANCO TROUGH @ 0,000 ON... ONCE ONCE XX ; Start 03/07 at 00:00; Stop 03/07/17 at 00:01 Albumin Human 250 ml @ 250 mls/hr ONCE ONCE IV Last administered on 03/06/17 11:38; Admin Dose 250 MLS/HR; Start 03/06/17 at 11:00; Stop 03/06/17 at 11:59 LISA KOEHLER Mar 06, 2017 11:44
--- NOTE | 2017-03-06 11:50 | CONS ---
Date/Time of Note Date/Time of Note DATE: 03/06/17 TIME: 11:44 Assessment/Plan Assessment/Plan Chief Complaint/Hosp Course ID PROGRESS NOTE TOTAL ABX DAY #9 => VANCO IV + MERREM + Cancidas 24H INTERVAL SUMMARY * More awake/alert/ responsive -- New CVC -- Picc removed, Fevers resolved, WBC down, * 03/05/17 CXR: IMPRESSION: Pulmonary venous congestion with interstitial edema, slightly increased. Bilateral moderate pleural effusions with underlying atelectasis, slightly increased. Left subclavian central venous catheter within the left brachiocephalic vein. Endotracheal and nasogastric tubes in place.Right-sided PICC line in place. * MICRO: (+)Yeast UTI (+)Yeast BCx = Fungemia due to Infected PICC line + UTI * 02/25 BCx(+)Yeast; 02/28/17 BCx (+) Yeast; 03/02 BCx (-) GENERAL: Elderly lady on mechanical ventilation orally intubated. VITAL SIGNS: see below. HEENT: Unremarkable ETT-> secure to Vent CARDIAC: S1, S2, 1/6 systolic ejection murmur CHEST: Diminished air entry bilaterally. ABDOMEN: Mildly distended. Bowel sounds present no guarding or rebound EXTREMITIES: No cyanosis, clubbing edema +2 NEUROLOGIC: Generalized weakness ID ASSESSMENT 86 yo F with: 1. Sepsis w/Fevers >102.+ 02/24 &, leukocytosis, tachycardia => Disseminated Fungemia == PICC DC'd 03/06/17 * BCx 02/25 (+) YEAST => Infx PICC line * 02/25/17 YEAST UTI 2. Acute hypoxic respiratory failure=> Intubated 02/24 in setting of sepsis 3. Severe pancreatitis with pseudocyst, currently on TPN. 4. Acute on chronic anemia status post blood product transfusion 5. Urinary retention 6. s/p VRE UTI 02/15/17 7. s/p acute kidney injury 8. Venous thromboembolism with episode of DVT, status post IVC filter. Repeat Doppler negative for DVT (+)MRSA Nares screen (+)MRSA Stool colonization (+)VRE Stool colonization INVASIVES: Left CVC 03/05/17, ETT, OGT ABX ALLERGY: PCN CURRENT ABX: #9 => VANCO IV + MERREM + Cancidas ID RECOMMENDATIONS 1. Continue current broad spectrum IV ABX coverage 2. Continue Cancidas -> PICC DC'd after new CVC line placed late pm 03/05/17 3. Repeat UA C&S see if yeast cleared from urine if still present -- change the FC 4. Per US: Probably developing pancreatic pseudocyst . Problems: Consultation Date/Type/Reason Admit Date/Time Feb 11, 2017 at 05:28 Initial Consult Date 02/21/17 Type of Consultation: ID Referring Provider: BONIFACIO COWART Exam/Review of Systems Vital Signs Vitals Vital Signs Date Time Temp Pulse Resp B/P Pulse Ox O2 Delivery O2 Flow Rate FiO2 03/06/17 11:00 90 18 88/55 98 Mechanical Ventilator 03/06/17 08:45 97.5 03/06/17 05:30 30 Intake and Output 03/05/17 03/05/17 03/06/17 15:00 23:00 07:00 Intake Total 1061.21 ml 725.56 ml 557.76 ml Output Total 240 ml 140 ml 50 ml Balance 821.21 ml 585.56 ml 507.76 ml Results Result Diagram: 03/06/17 0840 03/06/17 0415 Results 24 hrs Laboratory Tests Test 03/05/17 13:21 03/05/17 19:14 03/05/17 20:54 03/06/17 01:38 Bedside Glucose 96 78 79 84 Test 03/06/17 04:15 03/06/17 04:22 03/06/17 08:40 03/06/17 09:18 White Blood Count 8.3 8.6 Red Blood Count 1.21 #L 1.96 #L Hemoglobin 6.9 *L 7.1 L Hematocrit 21.0 L 22.0 L Mean Corpuscular Volume 86.4 86.6 Mean Corpuscular Hemoglobin 28.4 L 28.0 L Mean Corpuscular Hemoglobin Concent 32.9 32.3 Red Cell Distribution Width 19.7 H 19.7 H Platelet Count 102 L 108 L Mean Platelet Volume 13.2 H 13.9 H Neutrophils % 62.8 62.3 Lymphocytes % 28.4 29.9 Monocytes % 5.8 4.4 Eosinophils % 2.1 2.3 Basophils % 0.3 0.3 Nucleated Red Blood Cells % 0.0 0.0 Neutrophils # 5.9 5.5 Lymphocytes # 2.7 2.6 Monocytes # 0.6 0.4 Eosinophils # 0.2 0.2 Basophils # 0.0 0.0 Nucleated Red Blood Cells # 0.0 0.0 Sodium Level 141 Potassium Level 3.7 Chloride Level 111 H Carbon Dioxide Level 20 L Anion Gap 14 Blood Urea Nitrogen 28 H Creatinine 0.92 Glucose Level 74 Calcium Level 7.7 L Phosphorus Level 5.7 H Magnesium Level 2.1 Total Bilirubin 7.3 H Direct Bilirubin 5.60 H Indirect Bilirubin 1.7 H Aspartate Amino Transf (AST/SGOT) 56 H Alanine Aminotransferase (ALT/SGPT) 28 Alkaline Phosphatase 296 H Total Protein 5.4 L Albumin 1.8 L Globulin 3.60 H Albumin/Globulin Ratio 0.50 Bedside Glucose 88 90 Medications Medications Current Medications Ondansetron HCl (Zofran Inj) 4 mg Q6H PRN IV NAUSEA AND/OR VOMITING Last administered on 02/13/17 00:36; Admin Dose 4 MG; Start 02/11/17 at 10:00 Acetaminophen (Tylenol Tab) 650 mg Q6H PRN PO PAIN LEVEL 1-3 OR FEVER Last administered on 02/25/17 19:51; Admin Dose 650 MG; Start 02/11/17 at 10:00 Docusate Sodium (Colace) 100 mg Q12H PRN PO CONSTIPATION; Start 02/11/17 at 10: 00 Bisacodyl (Dulcolax Supp) 10 mg DAILY PRN [place] CONSTIPATION; Start 02/11/17 at 10 :00 Miscellaneous Information (Pending Santyl Order For Wound Care) This patient prado... PRN PRN XX WOUND CARE; Start 02/11/17 at 19:00 Collagenase (Santyl) 1 applic DAILY TOP Last administered on 03/05/17 09:00; Admin Dose 1 APPLIC; Start 02/12/17 at 13:30 Diphenhydramine HCl 25 mg 25 mg Q6H PRN IV ITCHING Last administered on 03:22; Admin Dose 25 MG; Start 02/12/17 at 14:00 Total Parenteral Nutrition (Tpn) 1,000 ml @ 40 mls/hr Q24H IV Last administered on 02/25/17 18:53; Admin Dose 40 MLS/HR; Start 02/12/17 at 18:00; Status Future Hold Alprazolam 0.25 mg 0.25 mg Q12H PRN PO ANXIETY Last administered on 02/23/17 02:09; Admin Dose 0.25 MG; Start 02/19/17 at 14:00 Sodium Chloride (NS) 250 ml @ 250 mls/hr Q1H PRN IV abp below 90 Last administered on 02/21/17 20:08; Admin Dose 250 MLS/HR; Start 02/21/17 at 17:30 Pantoprazole (Protonix Iv) 40 mg DAILY@06 IV Last administered on 03/06/17 06: 56; Admin Dose 40 MG; Start 02/23/17 at 06:00 Midodrine (Proamatine) 5 mg TID PO Last administered on 03/06/17 09:19; Admin Dose 5 MG; Start 02/23/17 at 13:30 Lorazepam (Ativan) 0.5 mg Q8H PRN IV AGITATION/ANXIETY; Start 02/23/17 at 13:30 Miscellaneous Information DAILY XX Last administered on 03/05/17 09:13; Admin Dose 1 EA; Start 02/25/17 at 09:00 Midazolam HCl 50 ml @ 1 mls/hr TITRATE IV Last administered on 02/25/17 22:54 ; Admin Dose 2 MLS/HR; Start 02/25/17 at 10:00 Fentanyl 100 ml @ 2.5 mls/hr TITRATE IV Last administered on 02/25/17 10:43; Admin Dose 2.5 MLS/HR; Start 02/25/17 at 10:00 Norepinephrine 32 mg/Dextrose 500 ml @ 0 mls/hr TITRATE IV Last administered on 03/04/17 21:10; Admin Dose 13.12 MLS/HR; Start 02/28/17 at 11:30 Phenylephrine HCl 80 mg/Dextrose 500 ml @ 0 mls/hr TITRATE IV Last administered on 02/28/17 14:18; Admin Dose 7.5 MLS/HR; Start 02/28/17 at 11:30 Vancomycin HCl 750 mg/Dextrose/ Water 150 ml @ 75 mls/hr Q48H IVPB Last administered on 03/05/17 01:25; Admin Dose 75 MLS/HR; Start 03/03/17 at 01:00 Meropenem/Sodium Chloride 50 ml @ 100 mls/hr Q24H IVPB Last administered on 20:57; Admin Dose 100 MLS/HR; Start 03/01/17 at 21:00 Dextrose/Sodium Chloride (D5-NS) 1,000 ml @ 75 mls/hr [id number] IV Last administered on 03/05/17 21:03; Admin Dose 75 MLS/HR; Start 03/02/17 at 12:30 Miscellaneous Information 1 ea NOTE XX ; Start 03/02/17 at 12:30 Glucose (Glutose) 15 gm Q15M PRN PO DECREASED GLUCOSE; Start 03/02/17 at 12:30 Glucose (Glutose) 22.5 gm Q15M PRN PO DECREASED GLUCOSE; Start 03/02/17 at 12: 30 Dextrose (D50w Syringe) 25 ml Q15M PRN IV DECREASED GLUCOSE Last administered on 03/02/17 12:18; Admin Dose 25 ML; Start 03/02/17 at 12:30 Dextrose (D50w Syringe) 50 ml Q15M PRN IV DECREASED GLUCOSE; Start 03/02/17 at 12:30 Glucagon (Glucagen) 1 mg Q15M PRN IM DECREASED GLUCOSE; Start 03/02/17 at 12:30 Glucose (Glutose) 15 gm Q15M PRN BUCCAL DECREASED GLUCOSE; Start 03/02/17 at 12 :30 Morphine Sulfate (morphine) 2 mg Q4H PRN IV PAIN LEVEL 7-10; Start 03/02/17 at 14:00 Diagnostic Test (Pha) 1 ea 1 ea Q4 XX Last administered on 03/06/17 09:18; Admin Dose 1 EA; Start 03/04/17 at 09:00 Caspofungin/ Sodium Chloride (Cancidas/NS) 250 ml @ 250 mls/hr Q24H IVPB Last administered on 03/05/17 16:50; Admin Dose 250 MLS/HR; Start 03/04/17 at 15:00 Miscellaneous Information VANCO TROUGH @ 0,000 ON... ONCE ONCE XX ; Start 03/07 at 00:00; Stop 03/07/17 at 00:01 Albumin Human 250 ml @ 250 mls/hr ONCE ONCE IV Last administered on 03/06/17 11:38; Admin Dose 250 MLS/HR; Start 03/06/17 at 11:00; Stop 03/06/17 at 11:59 DEBORA WILLOUGHBY NP Mar 06, 2017 11:50
--- NOTE | 2017-03-06 13:54 | PN ---
Date/Time of Note Date/Time of Note DATE: 03/06/17 TIME: 13:51 Assessment/Plan VTE Prophylaxis VTE Prophylaxis Intervention: contraindicated VTE Contraindication Reason: bleeding Lines/Catheters IV Catheter Type (from Nrs): Central Line (03/05) Central line still needed: Yes Urinary Cath still in place: Yes Reason Cath still needed: urinary retention Assessment/Plan Assessment/Plan Sepsis * Acute respiratory failure management c/o pulmonary * Anemia hemoglobin * Refused EGD * Pancreatitis with Pancreatic pseudocyst/awaiting drainage * Coagulopathy * H/O tube cholecystostomy * H/O ERCP removal of stone with biliary stent * Plan * Continue present regimen * monitor hemoglobin and hematocrit daily and transfuse per protocol * further orders will depend on clinical course * case discussed with DR Hill Subjective 24 Hr Interval Summary Free Text/Dictation * course reviewed with RN * patient seen and examined * No untoward events overnight Exam/Review of Systems Vital Signs Vitals Vital Signs Date Time Temp Pulse Resp B/P Pulse Ox O2 Delivery O2 Flow Rate FiO2 03/06/17 11:20 89 22 98 30 03/06/17 11:00 88/55 Mechanical Ventilator 03/06/17 08:45 97.5 Intake and Output 03/05/17 03/05/17 03/06/17 15:00 23:00 07:00 Intake Total 1061.21 ml 725.56 ml 557.76 ml Output Total 240 ml 140 ml 50 ml Balance 821.21 ml 585.56 ml 507.76 ml Exam Constitutional: frail ENMT: intubated Neck: non-tender, supple Respiratory: crackles/rales, diminished breath sounds Cardiovascular: nl pulses, regular rate and rhythm Gastrointestinal: distended, non-tender, soft Musculoskeletal: muscle weakness Extremities: pitting pedal edema Neurological: lethargic Skin: ecchymosis Lymph: nl lymph nodes Results Result Diagram: 03/06/17 0840 03/06/17 0415 Results 24 hrs Laboratory Tests Test 03/05/17 19:14 03/05/17 20:54 03/06/17 01:38 03/06/17 04:15 Bedside Glucose 78 79 84 White Blood Count 8.3 Red Blood Count 1.21 #L Hemoglobin 6.9 *L Hematocrit 21.0 L Mean Corpuscular Volume 86.4 Mean Corpuscular Hemoglobin 28.4 L Mean Corpuscular Hemoglobin Concent 32.9 Red Cell Distribution Width 19.7 H Platelet Count 102 L Mean Platelet Volume 13.2 H Neutrophils % 62.8 Lymphocytes % 28.4 Monocytes % 5.8 Eosinophils % 2.1 Basophils % 0.3 Nucleated Red Blood Cells % 0.0 Neutrophils # 5.9 Lymphocytes # 2.7 Monocytes # 0.6 Eosinophils # 0.2 Basophils # 0.0 Nucleated Red Blood Cells # 0.0 Sodium Level 141 Potassium Level 3.7 Chloride Level 111 H Carbon Dioxide Level 20 L Anion Gap 14 Blood Urea Nitrogen 28 H Creatinine 0.92 Glucose Level 74 Calcium Level 7.7 L Phosphorus Level 5.7 H Magnesium Level 2.1 Total Bilirubin 7.3 H Direct Bilirubin 5.60 H Indirect Bilirubin 1.7 H Aspartate Amino Transf (AST/SGOT) 56 H Alanine Aminotransferase (ALT/SGPT) 28 Alkaline Phosphatase 296 H Total Protein 5.4 L Albumin 1.8 L Globulin 3.60 H Albumin/Globulin Ratio 0.50 Test 03/06/17 04:22 03/06/17 08:40 03/06/17 09:18 Bedside Glucose 88 90 White Blood Count 8.6 Red Blood Count 1.96 #L Hemoglobin 7.1 L Hematocrit 22.0 L Mean Corpuscular Volume 86.6 Mean Corpuscular Hemoglobin 28.0 L Mean Corpuscular Hemoglobin Concent 32.3 Red Cell Distribution Width 19.7 H Platelet Count 108 L Mean Platelet Volume 13.9 H Neutrophils % 62.3 Lymphocytes % 29.9 Monocytes % 4.4 Eosinophils % 2.3 Basophils % 0.3 Nucleated Red Blood Cells % 0.0 Neutrophils # 5.5 Lymphocytes # 2.6 Monocytes # 0.4 Eosinophils # 0.2 Basophils # 0.0 Nucleated Red Blood Cells # 0.0 Medications Medications Current Medications Ondansetron HCl (Zofran Inj) 4 mg Q6H PRN IV NAUSEA AND/OR VOMITING Last administered on 02/13/17 00:36; Admin Dose 4 MG; Start 02/11/17 at 10:00 Acetaminophen (Tylenol Tab) 650 mg Q6H PRN PO PAIN LEVEL 1-3 OR FEVER Last administered on 02/25/17 19:51; Admin Dose 650 MG; Start 02/11/17 at 10:00 Docusate Sodium (Colace) 100 mg Q12H PRN PO CONSTIPATION; Start 02/11/17 at 10: 00 Bisacodyl (Dulcolax Supp) 10 mg DAILY PRN [place] CONSTIPATION; Start 02/11/17 at 10 :00 Miscellaneous Information (Pending Santyl Order For Wound Care) This patient prado... PRN PRN XX WOUND CARE; Start 02/11/17 at 19:00 Collagenase (Santyl) 1 applic DAILY TOP Last administered on 03/05/17 09:00; Admin Dose 1 APPLIC; Start 02/12/17 at 13:30 Diphenhydramine HCl 25 mg 25 mg Q6H PRN IV ITCHING Last administered on 03:22; Admin Dose 25 MG; Start 02/12/17 at 14:00 Total Parenteral Nutrition (Tpn) 1,000 ml @ 40 mls/hr Q24H IV Last administered on 02/25/17 18:53; Admin Dose 40 MLS/HR; Start 02/12/17 at 18:00; Status Future Hold Alprazolam 0.25 mg 0.25 mg Q12H PRN PO ANXIETY Last administered on 02/23/17 02:09; Admin Dose 0.25 MG; Start 02/19/17 at 14:00 Sodium Chloride (NS) 250 ml @ 250 mls/hr Q1H PRN IV abp below 90 Last administered on 02/21/17 20:08; Admin Dose 250 MLS/HR; Start 02/21/17 at 17:30 Pantoprazole (Protonix Iv) 40 mg DAILY@06 IV Last administered on 03/06/17 06: 56; Admin Dose 40 MG; Start 02/23/17 at 06:00 Midodrine (Proamatine) 5 mg TID PO Last administered on 03/06/17 09:19; Admin Dose 5 MG; Start 02/23/17 at 13:30 Lorazepam (Ativan) 0.5 mg Q8H PRN IV AGITATION/ANXIETY; Start 02/23/17 at 13:30 Miscellaneous Information DAILY XX Last administered on 03/05/17 09:13; Admin Dose 1 EA; Start 02/25/17 at 09:00 Midazolam HCl 50 ml @ 1 mls/hr TITRATE IV Last administered on 02/25/17 22:54 ; Admin Dose 2 MLS/HR; Start 02/25/17 at 10:00 Fentanyl 100 ml @ 2.5 mls/hr TITRATE IV Last administered on 02/25/17 10:43; Admin Dose 2.5 MLS/HR; Start 02/25/17 at 10:00 Norepinephrine 32 mg/Dextrose 500 ml @ 0 mls/hr TITRATE IV Last administered on 03/04/17 21:10; Admin Dose 13.12 MLS/HR; Start 02/28/17 at 11:30 Phenylephrine HCl 80 mg/Dextrose 500 ml @ 0 mls/hr TITRATE IV Last administered on 02/28/17 14:18; Admin Dose 7.5 MLS/HR; Start 02/28/17 at 11:30 Vancomycin HCl 750 mg/Dextrose/ Water 150 ml @ 75 mls/hr Q48H IVPB Last administered on 03/05/17 01:25; Admin Dose 75 MLS/HR; Start 03/03/17 at 01:00 Meropenem/Sodium Chloride 50 ml @ 100 mls/hr Q24H IVPB Last administered on 20:57; Admin Dose 100 MLS/HR; Start 03/01/17 at 21:00 Dextrose/Sodium Chloride (D5-NS) 1,000 ml @ 75 mls/hr [id number] IV Last administered on 03/05/17 21:03; Admin Dose 75 MLS/HR; Start 03/02/17 at 12:30 Miscellaneous Information 1 ea NOTE XX ; Start 03/02/17 at 12:30 Glucose (Glutose) 15 gm Q15M PRN PO DECREASED GLUCOSE; Start 03/02/17 at 12:30 Glucose (Glutose) 22.5 gm Q15M PRN PO DECREASED GLUCOSE; Start 03/02/17 at 12: 30 Dextrose (D50w Syringe) 25 ml Q15M PRN IV DECREASED GLUCOSE Last administered on 03/02/17 12:18; Admin Dose 25 ML; Start 03/02/17 at 12:30 Dextrose (D50w Syringe) 50 ml Q15M PRN IV DECREASED GLUCOSE; Start 03/02/17 at 12:30 Glucagon (Glucagen) 1 mg Q15M PRN IM DECREASED GLUCOSE; Start 03/02/17 at 12:30 Glucose (Glutose) 15 gm Q15M PRN BUCCAL DECREASED GLUCOSE; Start 03/02/17 at 12 :30 Morphine Sulfate (morphine) 2 mg Q4H PRN IV PAIN LEVEL 7-10; Start 03/02/17 at 14:00 Diagnostic Test (Pha) 1 ea 1 ea Q4 XX Last administered on 03/06/17 09:18; Admin Dose 1 EA; Start 03/04/17 at 09:00 Caspofungin/ Sodium Chloride (Cancidas/NS) 250 ml @ 250 mls/hr Q24H IVPB Last administered on 03/05/17 16:50; Admin Dose 250 MLS/HR; Start 03/04/17 at 15:00 Miscellaneous Information (*Rx Drug Level Order Reminder*) VANCO TROUGH @ 0, 000 ON... ONCE ONCE XX ; Start 03/07/17 at 00:00; Stop 03/07/17 at 00:01 LUZMARIA SPAIN NP Mar 06, 2017 13:54
[2017-03-06] MEDS: CASPOFUNGIN 35 MG in SOD CHLORIDE 0.9% 250 ML IVPB SCH (15:07)
--- NOTE | 2017-03-06 15:11 | PN ---
Date/Time of Note Date/Time of Note DATE: 03/06/17 TIME: 15:09 Assessment/Plan Lines/Catheters IV Catheter Type (from Nrsg): Central Line (03/05) Elder in Place (from Nrsg): Yes Assessment/Plan Chief Complaint/Hosp Course Additional Assessment/Plan Respiratory failure Pancreatitis Infected PICC line Patient will be needing a central line I had a discussion with the son today He is in agreement to proceed with a central line Response complications alternative therapies explained to the patient's son All questions answered SP central line placement, site clean will continue supp care Problems: Subjective 24 Hr Interval Summary Constitutional: improved Pain Control: mild Exam/Review of Systems Vital Signs Vitals Vital Signs Date Time Temp Pulse Resp B/P Pulse Ox O2 Delivery O2 Flow Rate FiO2 03/06/17 14:30 95 22 93/53 97 Mechanical Ventilator 03/06/17 12:00 98.7 03/06/17 11:20 30 Intake and Output 03/05/17 03/05/17 03/06/17 15:00 23:00 07:00 Intake Total 1061.21 ml 725.56 ml 557.76 ml Output Total 240 ml 140 ml 50 ml Balance 821.21 ml 585.56 ml 507.76 ml Exam ENMT: mucosa pink and moist, nl external ears & nose, nl lips & teeth, nl nasal mucosa & septum Neck: non-tender, supple Respiratory: clear to auscultation, normal air movement Cardiovascular: nl pulses, regular rate and rhythm Gastrointestinal: nl liver, spleen, non-tender, soft Results Result Diagram: 03/06/17 0840 03/06/17 0415 LUIZ SEQUEIRA MD Mar 06, 2017 15:10
[2017-03-06] MEDS ORDERED: TPN 1,000 ML IV SCH (17:00)
[2017-03-06 18:25] LABS: ADD UMIC YES; UR ASCORBIC ACID NEGATIVE (NEGATIVE); UR BACTERIA FEW /HPF (NONE SEEN); UR BILIRUBIN (Dip) 1+ mg/dL (NEGATIVE); UR BLOOD (Dip) 2+ mg/dL (NEGATIVE); UR CLARITY CLOUDY (CLEAR); UR COLOR AMBER (YELLOW); UR GLUCOSE (Dip) NEGATIVE (NEGATIVE); UR KETONES (Dip) NEGATIVE (NEGATIVE); UR LEUKOCYTE ESTERASE (Dip) NEGATIVE Leu/ul (NEGATIVE); UR NITRITE (Dip) NEGATIVE (NEGATIVE); UR RBC 8 /HPF (0-5); UR SPECIFIC GRAVITY (Dip) 1.013 (1.003-1.030); UR TOTAL PROTEIN (Dip) NEGATIVE (NEGATIVE); UR UROBILINOGEN (Dip) 1+ mg/dL (NEGATIVE)
[2017-03-06] MEDS: MEROPENEM 500MG/50 ML (PMX) 50 ML IVPB SCH (21:13)
[2017-03-06] MEDS: TPN 1,000 ML IV SCH (21:15)
[2017-03-06] MEDS: LORAZEPAM 2 MG INJ IV PRN (21:40)
[2017-03-07] VITALS (89 sets, daily range): BP systolic 84–140; BP diastolic 49–112; PULSE 70–101; RESP 0–28
[2017-03-07] MEDS: ACCU-CHEK XX SCH ×6 (00:35→22:00)
[2017-03-07] MEDS: ALBUTEROL 18 GM INHALER INH SCH ×3 (01:21→15:45)
[2017-03-07] MEDS: IPRATROPIUM (HFA) 12.9 GM INHALER INH SCH ×3 (01:21→15:45)
[2017-03-07] MEDS: VANCOMYCIN 750 MG in DEXTROSE 5% 150 ML IVPB SCH (01:55)
[2017-03-07] MEDS: PANTOPRAZOLE 40 MG INJ IV SCH (05:19)
[2017-03-07] MEDS: DEXTROSE 5%-0.9% NACL 1,000 ML IV SCH ×3 (05:20→21:49)
[2017-03-07 05:26] LABS: ALBUMIN 1.8 g/dl (3.3-4.9); ALBUMIN/GLOBULIN RATIO 0.48; BILIRUBIN,DIRECT 5.6 mg/dl (0.00-0.20); BILIRUBIN,INDIRECT 1.7 mg/dl (0-1.1); BILIRUBIN,TOTAL 7.3 mg/dl (0.2-1.3); CREATININE 0.82 mg/dl (0.44-1.00); MAGNESIUM 1.9 mg/dl (1.7-2.5); PHOSPHORUS 5.2 mg/dl (2.5-4.9); POTASSIUM 3.7 mmol/L (3.5-5.1); TOTAL PROTEIN 5.5 g/dl (6.1-8.1)
[2017-03-07 05:31] LABS: INR 1.95; PROTIME 22.4 Sec (12.2-14.2); PT RATIO 1.8
[2017-03-07 05:32] LABS: PARTIAL THROMBOPLASTIN TIME 48.1 Sec (25.0-35.0)
[2017-03-07] MEDS: MIDODRINE 5 MG TAB PO SCH ×3 (08:10→22:04)
[2017-03-07] MEDS: ALPRAZOLAM 0.25 MG TAB PO PRN (08:10)
[2017-03-07] MEDS: COLLAGENASE 30 GM TUBE TOP SCH (09:00)
[2017-03-07] MEDS: [UNRECOGNIZED DRUG - REMARK] XX SCH (09:00)
[2017-03-07] MEDS: BALSAM PERU/CASTOR OIL 60 GM TUBE TOP SCH (09:00)
[2017-03-07] MEDS: SODIUM HYPOCHLORITE 0.125% 473 ML BTL IRR SCH (09:00)
[2017-03-07] MEDS ORDERED: SOD CHLORIDE 0.9% 250 ML IV* ONE (09:01)
--- NOTE | 2017-03-07 09:09 | PN ---
Date/Time of Note Date/Time of Note DATE: 03/07/17 TIME: 09:05 Assessment/Plan VTE Prophylaxis VTE Prophylaxis Intervention: SCD's Lines/Catheters IV Catheter Type (from Nrs): Central Line Central line still needed: Yes Urinary Cath still in place: Yes Reason Cath still needed: other (indicate) Assessment/Plan Assessment/Plan 1. norbert bacteremia, cont cancidas and other abx (b) still requiring low dose levophed support 2. pulm: resp failure, cont vent support 3. gi: pancreatitis with pseudocyst, awaiting drainage (b) jaundice, likely obstructive, patient likely benefit from cholecystostomy or stent (c) coagulopathy, likely secondary to vit k deficiency, replace 4. anemia, will plan transfuse in attempt to wean from pressor Subjective 24 Hr Interval Summary Free Text/Dictation intubated, awake but does not follow commands, spont moving all llimbs Exam/Review of Systems Vital Signs Vitals Vital Signs Date Time Temp Pulse Resp B/P Pulse Ox O2 Delivery O2 Flow Rate FiO2 03/07/17 08:18 96.9 03/07/17 08:15 97 16 106/64 100 03/07/17 07:45 Mechanical Ventilator 03/07/17 05:29 30 Intake and Output 03/06/17 03/06/17 03/07/17 15:00 23:00 07:00 Intake Total 883.93 ml 948.71 ml 671.84 ml Output Total 210 ml 265 ml 260 ml Balance 673.93 ml 683.71 ml 411.84 ml Exam nad, intubated, L subclavian line ctab, soft nt, edematous Results Result Diagram: 03/06/17 0840 03/07/17 0447 Results 24 hrs Laboratory Tests Test 03/06/17 09:18 03/06/17 14:28 03/06/17 16:45 03/06/17 17:55 Bedside Glucose 90 87 81 Urine Color INES Urine Clarity CLOUDY A Urine pH 5.0 Urine Specific [place] 1.013 Urine Ketones NEGATIVE Urine Nitrite NEGATIVE Urine Bilirubin 1+ H Urine Urobilinogen 1+ H Urine Leukocyte Esterase NEGATIVE Urine Microscopic RBC 8 H Urine Microscopic WBC 6 H Urine Bacteria FEW A Urine Hemoglobin 2+ H Urine Glucose NEGATIVE Urine Total Protein NEGATIVE Test 03/06/17 21:19 03/07/17 00:01 03/07/17 00:26 03/07/17 04:47 Bedside Glucose 72 95 Vancomycin Level Trough 14.3 Prothrombin Time 22.4 H Prothrombin Time Ratio 1.8 INR International Normalized Ratio 1.95 Activated Partial Thromboplast Time 48.1 H Sodium Level 143 Potassium Level 3.7 Chloride Level 113 H Carbon Dioxide Level 19 L Anion Gap 15 Blood Urea Nitrogen 24 H Creatinine 0.82 Glucose Level 91 Calcium Level 8.0 L Phosphorus Level 5.2 H Magnesium Level 1.9 Total Bilirubin 7.3 H Direct Bilirubin 5.60 H Indirect Bilirubin 1.7 H Aspartate Amino Transf (AST/SGOT) 52 H Alanine Aminotransferase (ALT/SGPT) 30 Alkaline Phosphatase 275 H Total Protein 5.5 L Albumin 1.8 L Globulin 3.70 H Albumin/Globulin Ratio 0.48 Test 03/07/17 05:20 03/07/17 09:02 Bedside Glucose 98 108 Medications Medications Current Medications Ondansetron HCl (Zofran Inj) 4 mg Q6H PRN IV NAUSEA AND/OR VOMITING Last administered on 02/13/17 00:36; Admin Dose 4 MG; Start 02/11/17 at 10:00 Acetaminophen (Tylenol Tab) 650 mg Q6H PRN PO PAIN LEVEL 1-3 OR FEVER Last administered on 02/25/17 19:51; Admin Dose 650 MG; Start 02/11/17 at 10:00 Docusate Sodium (Colace) 100 mg Q12H PRN PO CONSTIPATION; Start 02/11/17 at 10: 00 Bisacodyl (Dulcolax Supp) 10 mg DAILY PRN [place] CONSTIPATION; Start 02/11/17 at 10 :00 Miscellaneous Information (Pending Santyl Order For Wound Care) This patient prado... PRN PRN XX WOUND CARE; Start 02/11/17 at 19:00 Collagenase (Santyl) 1 applic DAILY TOP Last administered on 03/05/17 09:00; Admin Dose 1 APPLIC; Start 02/12/17 at 13:30 Diphenhydramine HCl (Benadryl) 25 mg Q6H PRN IV ITCHING Last administered on 03:22; Admin Dose 25 MG; Start 02/12/17 at 14:00 Alprazolam (Xanax) 0.25 mg Q12H PRN PO ANXIETY Last administered on 03/07/17 08 :10; Admin Dose 0.25 MG; Start 02/19/17 at 14:00 Pantoprazole (Protonix Iv) 40 mg DAILY@06 IV Last administered on 03/07/17 05: 19; Admin Dose 40 MG; Start 02/23/17 at 06:00 Midodrine (Proamatine) 5 mg TID PO Last administered on 03/07/17 08:10; Admin Dose 5 MG; Start 02/23/17 at 13:30 Lorazepam (Ativan) 0.5 mg Q8H PRN IV AGITATION/ANXIETY; Start 02/23/17 at 13:30 Miscellaneous Information DAILY XX Last administered on 03/05/17 09:13; Admin Dose 1 EA; Start 02/25/17 at 09:00 Midazolam HCl 50 ml @ 1 mls/hr TITRATE IV Last administered on 02/25/17 22:54 ; Admin Dose 2 MLS/HR; Start 02/25/17 at 10:00 Fentanyl 100 ml @ 2.5 mls/hr TITRATE IV Last administered on 02/25/17 10:43; Admin Dose 2.5 MLS/HR; Start 02/25/17 at 10:00 Norepinephrine 32 mg/Dextrose 500 ml @ 0 mls/hr TITRATE IV Last administered on 03/04/17 21:10; Admin Dose 13.12 MLS/HR; Start 02/28/17 at 11:30 Phenylephrine HCl 80 mg/Dextrose 500 ml @ 0 mls/hr TITRATE IV Last administered on 02/28/17 14:18; Admin Dose 7.5 MLS/HR; Start 02/28/17 at 11:30 Vancomycin HCl 750 mg/Dextrose/ Water 150 ml @ 75 mls/hr Q48H IVPB Last administered on 03/07/17 01:55; Admin Dose 75 MLS/HR; Start 03/03/17 at 01:00 Meropenem/Sodium Chloride 50 ml @ 100 mls/hr Q24H IVPB Last administered on 21:13; Admin Dose 100 MLS/HR; Start 03/01/17 at 21:00 Dextrose/Sodium Chloride (D5-NS) 1,000 ml @ 35 mls/hr Q24H IV Last administered on 03/06/17 15:07; Admin Dose 75 MLS/HR; Start 03/02/17 at 12:30 Miscellaneous Information 1 ea NOTE XX ; Start 03/02/17 at 12:30 Glucose (Glutose) 15 gm Q15M PRN PO DECREASED GLUCOSE; Start 03/02/17 at 12:30 Glucose (Glutose) 22.5 gm Q15M PRN PO DECREASED GLUCOSE; Start 03/02/17 at 12: 30 Dextrose (D50w Syringe) 25 ml Q15M PRN IV DECREASED GLUCOSE Last administered on 03/02/17 12:18; Admin Dose 25 ML; Start 03/02/17 at 12:30 Dextrose (D50w Syringe) 50 ml Q15M PRN IV DECREASED GLUCOSE; Start 03/02/17 at 12:30 Glucagon (Glucagen) 1 mg Q15M PRN IM DECREASED GLUCOSE; Start 03/02/17 at 12:30 Glucose (Glutose) 15 gm Q15M PRN BUCCAL DECREASED GLUCOSE; Start 03/02/17 at 12 :30 Morphine Sulfate (morphine) 2 mg Q4H PRN IV PAIN LEVEL 7-10; Start 03/02/17 at 14:00 Diagnostic Test (Pha) 1 ea 1 ea Q4 XX Last administered on 03/06/17 17:00; Admin Dose 1 EA; Start 03/04/17 at 09:00 Caspofungin 35 mg/ Sodium Chloride 250 ml @ 250 mls/hr Q24H IVPB Last administered on 03/06/17 15:07; Admin Dose 250 MLS/HR; Start 03/04/17 at 15:00 Total Parenteral Nutrition (Tpn) 1,000 ml @ 40 mls/hr Q24H IV Last administered on 03/06/17 21:15; Admin Dose 40 MLS/HR; Start 03/06/17 at 20:00 Sodium Hypochlorite (Dakin'S (1/4 Strength)) 1 applic DAILY IRR ; Start 03/07/17 at 09:00 BERENICE BUTLER MD Mar 07, 2017 09:09
[2017-03-07] MEDS ORDERED: PHYTONADIONE 10 MG in DEXTROSE 5% 50 ML IVPB ONE (10:30)
[2017-03-07] MEDS: LORAZEPAM 2 MG INJ IV PRN (11:24)
[2017-03-07] MEDS: MEROPENEM 1 GM/50ML(PMX) 50 ML IVPB SCH ×2 (12:23→23:02)
[2017-03-07] MEDS: morphine 2 MG INJ IV PRN (12:25)
--- NOTE | 2017-03-07 12:46 | PN ---
Date/Time of Note Date/Time of Note DATE: 03/07/17 TIME: 12:46 Assessment/Plan Lines/Catheters IV Catheter Type (from Nrsg): Central Line Elder in Place (from Nrsg): Yes Assessment/Plan Chief Complaint/Hosp Course Additional Assessment/Plan Respiratory failure Pancreatitis Infected PICC line Patient will be needing a central line I had a discussion with the son today He is in agreement to proceed with a central line Response complications alternative therapies explained to the patient's son All questions answered SP central line placement, site clean will continue supp care Problems: Subjective 24 Hr Interval Summary Constitutional: improved Exam/Review of Systems Vital Signs Vitals Vital Signs Date Time Temp Pulse Resp B/P Pulse Ox O2 Delivery O2 Flow Rate FiO2 03/07/17 08:18 96.9 03/07/17 08:15 97 16 106/64 100 03/07/17 07:45 Mechanical Ventilator 03/07/17 05:29 30 Intake and Output 03/06/17 03/06/17 03/07/17 15:00 23:00 07:00 Intake Total 883.93 ml 948.71 ml 671.84 ml Output Total 210 ml 265 ml 285 ml Balance 673.93 ml 683.71 ml 386.84 ml Exam Eyes: EOMI, nl conjunctiva, nl lids, nl sclera ENMT: mucosa pink and moist, nl external ears & nose, nl lips & teeth, nl nasal mucosa & septum Neck: non-tender, supple Respiratory: clear to auscultation, normal air movement Cardiovascular: nl pulses, regular rate and rhythm Results Result Diagram: 03/06/17 0840 03/07/17 0447 LUIZ SEQUEIRA MD Mar 07, 2017 12:46
--- NOTE | 2017-03-07 13:23 | CONS ---
Date/Time of Note Date/Time of Note DATE: 03/07/17 TIME: 13:18 Assessment/Plan Assessment/Plan Chief Complaint/Hosp Course ID PROGRESS NOTE TOTAL ABX DAY #10 => VANCO IV + MERREM + Cancidas 24H INTERVAL SUMMARY * Clininically improved -- PICC DC'd tip(-) 24H, UA no yeast, urine cx (-)24H, Fevers resolved * More alert, awake, responsive * MICRO: (+)Yeast UTI (+)Yeast BCx = Fungemia due to Infected PICC line + UTI * 02/25 BCx(+)Yeast; 02/28/17 BCx (+) Yeast; 03/02 BCx (-) GENERAL: Elderly lady on mechanical ventilation orally intubated. VITAL SIGNS: see below. HEENT: Unremarkable ETT-> secure to Vent CARDIAC: S1, S2, 1/6 systolic ejection murmur CHEST: Diminished air entry bilaterally. ABDOMEN: Mildly distended. Bowel sounds present no guarding or rebound EXTREMITIES: No cyanosis, clubbing edema +2 NEUROLOGIC: Generalized weakness ID ASSESSMENT 86 yo F with: 1. Sepsis w/Fevers >102.+ 02/24 &, leukocytosis, tachycardia => Disseminated Fungemia ->IMPROVING * Repeat BCx via new PICC 03/06 pending * BCx 02/25 (+) YEAST => Infx PICC line== PICC DC'd 03/06/17 * 02/25/17 YEAST UTI = FC changed 2. Acute hypoxic respiratory failure=> Intubated 02/24 in setting of sepsis 3. Severe pancreatitis with pseudocyst, currently on TPN. 4. Acute on chronic anemia status post blood product transfusion 5. Urinary retention 6. s/p VRE UTI 02/15/17 7. s/p acute kidney injury 8. Venous thromboembolism with episode of DVT, status post IVC filter. Repeat Doppler negative for DVT (+)MRSA Nares screen (+)MRSA Stool colonization (+)VRE Stool colonization INVASIVES: Left CVC 03/05/17, ETT, OGT ABX ALLERGY: PCN CURRENT ABX: #10 => VANCO IV + MERREM + Cancidas ID RECOMMENDATIONS 1. Continue current broad spectrum IV ABX coverage 2. Continue Cancidas -> PICC DC'd after new CVC line placed late pm 03/05/17 * Repeat BCx 03/06 pending 3. Repeat UA C&S see if yeast cleared from urine if still present -- change the FC => Urine (-) 24H . Problems: Consultation Date/Type/Reason Admit Date/Time Feb 11, 2017 at 05:28 Initial Consult Date 02/21/17 Type of Consultation: ID Referring Provider: BONIFACIO COWART Exam/Review of Systems Vital Signs Vitals Vital Signs Date Time Temp Pulse Resp B/P Pulse Ox O2 Delivery O2 Flow Rate FiO2 03/07/17 08:18 96.9 03/07/17 08:15 97 16 106/64 100 03/07/17 07:45 Mechanical Ventilator 03/07/17 05:29 30 Intake and Output 03/06/17 03/06/17 03/07/17 15:00 23:00 07:00 Intake Total 883.93 ml 948.71 ml 671.84 ml Output Total 210 ml 265 ml 285 ml Balance 673.93 ml 683.71 ml 386.84 ml Results Result Diagram: 03/06/17 0840 03/07/17 0447 Results 24 hrs Laboratory Tests Test 03/06/17 14:28 03/06/17 16:45 03/06/17 17:55 03/06/17 21:19 Bedside Glucose 87 81 72 Urine Color INES Urine Clarity CLOUDY A Urine pH 5.0 Urine Specific [place] 1.013 Urine Ketones NEGATIVE Urine Nitrite NEGATIVE Urine Bilirubin 1+ H Urine Urobilinogen 1+ H Urine Leukocyte Esterase NEGATIVE Urine Microscopic RBC 8 H Urine Microscopic WBC 6 H Urine Bacteria FEW A Urine Hemoglobin 2+ H Urine Glucose NEGATIVE Urine Total Protein NEGATIVE Test 03/07/17 00:01 03/07/17 00:26 03/07/17 04:47 03/07/17 05:20 Vancomycin Level Trough 14.3 Bedside Glucose 95 98 Prothrombin Time 22.4 H Prothrombin Time Ratio 1.8 INR International Normalized Ratio 1.95 Activated Partial Thromboplast Time 48.1 H Sodium Level 143 Potassium Level 3.7 Chloride Level 113 H Carbon Dioxide Level 19 L Anion Gap 15 Blood Urea Nitrogen 24 H Creatinine 0.82 Glucose Level 91 Calcium Level 8.0 L Phosphorus Level 5.2 H Magnesium Level 1.9 Total Bilirubin 7.3 H Direct Bilirubin 5.60 H Indirect Bilirubin 1.7 H Aspartate Amino Transf (AST/SGOT) 52 H Alanine Aminotransferase (ALT/SGPT) 30 Alkaline Phosphatase 275 H Total Protein 5.5 L Albumin 1.8 L Globulin 3.70 H Albumin/Globulin Ratio 0.48 Test 03/07/17 09:02 Bedside Glucose 108 Medications Medications Current Medications Ondansetron HCl (Zofran Inj) 4 mg Q6H PRN IV NAUSEA AND/OR VOMITING Last administered on 02/13/17 00:36; Admin Dose 4 MG; Start 02/11/17 at 10:00 Acetaminophen (Tylenol Tab) 650 mg Q6H PRN PO PAIN LEVEL 1-3 OR FEVER Last administered on 02/25/17 19:51; Admin Dose 650 MG; Start 02/11/17 at 10:00 Docusate Sodium (Colace) 100 mg Q12H PRN PO CONSTIPATION; Start 02/11/17 at 10: 00 Bisacodyl (Dulcolax Supp) 10 mg DAILY PRN [place] CONSTIPATION; Start 02/11/17 at 10 :00 Miscellaneous Information (Pending Santyl Order For Wound Care) This patient prado... PRN PRN XX WOUND CARE; Start 02/11/17 at 19:00 Collagenase (Santyl) 1 applic DAILY TOP Last administered on 03/07/17 09:00; Admin Dose 1 APPLIC; Start 02/12/17 at 13:30 Diphenhydramine HCl (Benadryl) 25 mg Q6H PRN IV ITCHING Last administered on 03:22; Admin Dose 25 MG; Start 02/12/17 at 14:00 Alprazolam (Xanax) 0.25 mg Q12H PRN PO ANXIETY Last administered on 03/07/17 08 :10; Admin Dose 0.25 MG; Start 02/19/17 at 14:00 Pantoprazole (Protonix Iv) 40 mg DAILY@06 IV Last administered on 03/07/17 05: 19; Admin Dose 40 MG; Start 02/23/17 at 06:00 Midodrine (Proamatine) 5 mg TID PO Last administered on 03/07/17 13:15; Admin Dose 5 MG; Start 02/23/17 at 13:30 Lorazepam (Ativan) 0.5 mg Q8H PRN IV AGITATION/ANXIETY Last administered on 03/07 11:24; Admin Dose 0.5 MG; Start 02/23/17 at 13:30 Miscellaneous Information DAILY XX Last administered on 03/07/17 09:00; Admin Dose 1 EA; Start 02/25/17 at 09:00 Midazolam HCl 50 ml @ 1 mls/hr TITRATE IV Last administered on 02/25/17 22:54 ; Admin Dose 2 MLS/HR; Start 02/25/17 at 10:00 Fentanyl 100 ml @ 2.5 mls/hr TITRATE IV Last administered on 02/25/17 10:43; Admin Dose 2.5 MLS/HR; Start 02/25/17 at 10:00 Norepinephrine 32 mg/Dextrose 500 ml @ 0 mls/hr TITRATE IV Last administered on 03/04/17 21:10; Admin Dose 13.12 MLS/HR; Start 02/28/17 at 11:30 Phenylephrine HCl 80 mg/Dextrose 500 ml @ 0 mls/hr TITRATE IV Last administered on 02/28/17 14:18; Admin Dose 7.5 MLS/HR; Start 02/28/17 at 11:30 Vancomycin HCl 750 mg/Dextrose/ Water 150 ml @ 75 mls/hr Q48H IVPB Last administered on 03/07/17 01:55; Admin Dose 75 MLS/HR; Start 03/03/17 at 01:00 Dextrose/Sodium Chloride (D5-NS) 1,000 ml @ 35 mls/hr Q24H IV Last administered on 03/06/17 15:07; Admin Dose 75 MLS/HR; Start 03/02/17 at 12:30 Miscellaneous Information 1 ea NOTE XX ; Start 03/02/17 at 12:30 Glucose (Glutose) 15 gm Q15M PRN PO DECREASED GLUCOSE; Start 03/02/17 at 12:30 Glucose (Glutose) 22.5 gm Q15M PRN PO DECREASED GLUCOSE; Start 03/02/17 at 12: 30 Dextrose (D50w Syringe) 25 ml Q15M PRN IV DECREASED GLUCOSE Last administered on 03/02/17 12:18; Admin Dose 25 ML; Start 03/02/17 at 12:30 Dextrose (D50w Syringe) 50 ml Q15M PRN IV DECREASED GLUCOSE; Start 7/31/17 at 12:30 Glucagon (Glucagen) 1 mg Q15M PRN IM DECREASED GLUCOSE; Start 03/02/17 at 12:30 Glucose (Glutose) 15 gm Q15M PRN BUCCAL DECREASED GLUCOSE; Start 03/02/17 at 12 :30 Diagnostic Test (Pha) 1 ea 1 ea Q4 XX Last administered on 03/07/17 13:15; Admin Dose 1 EA; Start 03/04/17 at 09:00 Caspofungin 35 mg/ Sodium Chloride 250 ml @ 250 mls/hr Q24H IVPB Last administered on 03/06/17 15:07; Admin Dose 250 MLS/HR; Start 03/04/17 at 15:00 Total Parenteral Nutrition (Tpn) 1,000 ml @ 40 mls/hr Q24H IV Last administered on 03/06/17 21:15; Admin Dose 40 MLS/HR; Start 03/06/17 at 20:00 Sodium Hypochlorite (Dakin'S (08/06 Strength)) 1 applic DAILY IRR Last administered on 03/07/17 09:00; Admin Dose 1 APPLIC; Start 03/07/17 at 09:00 Morphine Sulfate 2 mg 2 mg Q4H PRN IV PAIN LEVEL 7-10 Last administered on 12:25; Admin Dose 2 MG; Start 03/07/17 at 10:00 Meropenem/Sodium Chloride (Merrem 1 Gm/50 ml (Pmx)) 50 ml @ 100 mls/hr Q12 IVPB Last administered on 03/07/17 12:23; Admin Dose 100 MLS/HR; Start 03/07/17 at 11:30 DEBORA WILLOUGHBY NP Mar 07, 2017 13:22
--- NOTE | 2017-03-07 14:01 | CONS ---
Date/Time of Note Date/Time of Note DATE: 03/07/17 TIME: 13:58 Consult Date/Type/Reason Admit Date/Time Feb 11, 2017 at 05:28 Initial Consult Date 02/21/17 Type of Consultation: Pulm/CCM Ordering Provider: BONIFACIO COWART Subjective On vent; not able to follow commands. Objective Vital Signs Date Time Temp Pulse Resp B/P Pulse Ox O2 Delivery O2 Flow Rate FiO2 03/07/17 13:15 86 13 107/56 100 03/07/17 08:18 96.9 03/07/17 07:45 Mechanical Ventilator 03/07/17 05:29 30 Intake and Output 03/06/17 03/06/17 03/07/17 15:00 23:00 07:00 Intake Total 883.93 ml 948.71 ml 671.84 ml Output Total 210 ml 265 ml 285 ml Balance 673.93 ml 683.71 ml 386.84 ml Exam HEENT: Neck supple; no JVD; no LAD CVS: RRR, S1 and S2 CHEST: + coarse BS B/L ABD: Soft, NT, + BS EXT: No c/c + edema Results/Medications Result Diagram: 03/06/17 0840 03/07/17 0447 Results 24 hrs Laboratory Tests Test 03/06/17 14:28 03/06/17 16:45 03/06/17 17:55 03/06/17 21:19 Bedside Glucose 87 81 72 Urine Color INES Urine Clarity CLOUDY A Urine pH 5.0 Urine Specific [place] 1.013 Urine Ketones NEGATIVE Urine Nitrite NEGATIVE Urine Bilirubin 1+ H Urine Urobilinogen 1+ H Urine Leukocyte Esterase NEGATIVE Urine Microscopic RBC 8 H Urine Microscopic WBC 6 H Urine Bacteria FEW A Urine Hemoglobin 2+ H Urine Glucose NEGATIVE Urine Total Protein NEGATIVE Test 03/07/17 00:01 03/07/17 00:26 03/07/17 04:47 03/07/17 05:20 Vancomycin Level Trough 14.3 Bedside Glucose 95 98 Prothrombin Time 22.4 H Prothrombin Time Ratio 1.8 INR International Normalized Ratio 1.95 Activated Partial Thromboplast Time 48.1 H Sodium Level 143 Potassium Level 3.7 Chloride Level 113 H Carbon Dioxide Level 19 L Anion Gap 15 Blood Urea Nitrogen 24 H Creatinine 0.82 Glucose Level 91 Calcium Level 8.0 L Phosphorus Level 5.2 H Magnesium Level 1.9 Total Bilirubin 7.3 H Direct Bilirubin 5.60 H Indirect Bilirubin 1.7 H Aspartate Amino Transf (AST/SGOT) 52 H Alanine Aminotransferase (ALT/SGPT) 30 Alkaline Phosphatase 275 H Total Protein 5.5 L Albumin 1.8 L Globulin 3.70 H Albumin/Globulin Ratio 0.48 Test 03/07/17 09:02 03/07/17 13:14 Bedside Glucose 108 113 Medications Current Medications Ondansetron HCl (Zofran Inj) 4 mg Q6H PRN IV NAUSEA AND/OR VOMITING Last administered on 02/13/17 00:36; Admin Dose 4 MG; Start 02/11/17 at 10:00 Acetaminophen (Tylenol Tab) 650 mg Q6H PRN PO PAIN LEVEL 1-3 OR FEVER Last administered on 02/25/17 19:51; Admin Dose 650 MG; Start 02/11/17 at 10:00 Docusate Sodium (Colace) 100 mg Q12H PRN PO CONSTIPATION; Start 02/11/17 at 10: 00 Bisacodyl (Dulcolax Supp) 10 mg DAILY PRN [place] CONSTIPATION; Start 02/11/17 at 10 :00 Miscellaneous Information (Pending Santyl Order For Wound Care) This patient prado... PRN PRN XX WOUND CARE; Start 02/11/17 at 19:00 Collagenase (Santyl) 1 applic DAILY TOP Last administered on 03/07/17 09:00; Admin Dose 1 APPLIC; Start 02/12/17 at 13:30 Diphenhydramine HCl (Benadryl) 25 mg Q6H PRN IV ITCHING Last administered on 03:22; Admin Dose 25 MG; Start 02/12/17 at 14:00 Alprazolam (Xanax) 0.25 mg Q12H PRN PO ANXIETY Last administered on 03/07/17 08 :10; Admin Dose 0.25 MG; Start 02/19/17 at 14:00 Pantoprazole (Protonix Iv) 40 mg DAILY@06 IV Last administered on 03/07/17 05: 19; Admin Dose 40 MG; Start 02/23/17 at 06:00 Midodrine (Proamatine) 5 mg TID PO Last administered on 03/07/17 13:15; Admin Dose 5 MG; Start 02/23/17 at 13:30 Lorazepam (Ativan) 0.5 mg Q8H PRN IV AGITATION/ANXIETY Last administered on 03/07 11:24; Admin Dose 0.5 MG; Start 02/23/17 at 13:30 Miscellaneous Information DAILY XX Last administered on 03/07/17 09:00; Admin Dose 1 EA; Start 02/25/17 at 09:00 Midazolam HCl 50 ml @ 1 mls/hr TITRATE IV Last administered on 02/25/17 22:54 ; Admin Dose 2 MLS/HR; Start 02/25/17 at 10:00 Fentanyl 100 ml @ 2.5 mls/hr TITRATE IV Last administered on 02/25/17 10:43; Admin Dose 2.5 MLS/HR; Start 02/25/17 at 10:00 Norepinephrine 32 mg/Dextrose 500 ml @ 0 mls/hr TITRATE IV Last administered on 03/04/17 21:10; Admin Dose 13.12 MLS/HR; Start 02/28/17 at 11:30 Phenylephrine HCl 80 mg/Dextrose 500 ml @ 0 mls/hr TITRATE IV Last administered on 02/28/17 14:18; Admin Dose 7.5 MLS/HR; Start 02/28/17 at 11:30 Vancomycin HCl 750 mg/Dextrose/ Water 150 ml @ 75 mls/hr Q48H IVPB Last administered on 03/07/17 01:55; Admin Dose 75 MLS/HR; Start 03/03/17 at 01:00 Dextrose/Sodium Chloride (D5-NS) 1,000 ml @ 35 mls/hr Q24H IV Last administered on 03/06/17 15:07; Admin Dose 75 MLS/HR; Start 03/02/17 at 12:30 Miscellaneous Information 1 ea NOTE XX ; Start 03/02/17 at 12:30 Glucose (Glutose) 15 gm Q15M PRN PO DECREASED GLUCOSE; Start 03/02/17 at 12:30 Glucose (Glutose) 22.5 gm Q15M PRN PO DECREASED GLUCOSE; Start 03/02/17 at 12: 30 Dextrose (D50w Syringe) 25 ml Q15M PRN IV DECREASED GLUCOSE Last administered on 03/02/17 12:18; Admin Dose 25 ML; Start 03/02/17 at 12:30 Dextrose (D50w Syringe) 50 ml Q15M PRN IV DECREASED GLUCOSE; Start 03/02/17 at 12:30 Glucagon (Glucagen) 1 mg Q15M PRN IM DECREASED GLUCOSE; Start 03/02/17 at 12:30 Glucose (Glutose) 15 gm Q15M PRN BUCCAL DECREASED GLUCOSE; Start 03/02/17 at 12 :30 Diagnostic Test (Pha) 1 ea 1 ea Q4 XX Last administered on 03/07/17 13:15; Admin Dose 1 EA; Start 03/04/17 at 09:00 Caspofungin 35 mg/ Sodium Chloride 250 ml @ 250 mls/hr Q24H IVPB Last administered on 03/06/17 15:07; Admin Dose 250 MLS/HR; Start 03/04/17 at 15:00 Total Parenteral Nutrition (Tpn) 1,000 ml @ 40 mls/hr Q24H IV Last administered on 03/06/17 21:15; Admin Dose 40 MLS/HR; Start 03/06/17 at 20:00 Sodium Hypochlorite (Dakin'S (1/4 Strength)) 1 applic DAILY IRR Last administered on 03/07/17 09:00; Admin Dose 1 APPLIC; Start 03/07/17 at 09:00 Morphine Sulfate 2 mg 2 mg Q4H PRN IV PAIN LEVEL 7-10 Last administered on 12:25; Admin Dose 2 MG; Start 03/07/17 at 10:00 Meropenem/Sodium Chloride (Merrem 1 Gm/50 ml (Pmx)) 50 ml @ 100 mls/hr Q12 IVPB Last administered on 03/07/17 12:23; Admin Dose 100 MLS/HR; Start 03/07/17 at 11:30 Assessment/Plan Additional Assessment/Plan IMP: 1. Vent Dependent Resp Failure 2. Fungemia 3. Pancreatitis 4. AMS/Encephalopathy 5. Anemia RECS: 1. Vent support 2 Would discuss goals of care and consider transitioning to comfort measures 3. Palliative Care consult 4. Anti-fungals per ID 5. Prognosis grim 35 min cc time JAIR SUAREZ MD Mar 07, 2017 14:01
[2017-03-07] MEDS: CASPOFUNGIN 35 MG in SOD CHLORIDE 0.9% 250 ML IVPB SCH (15:47)
[2017-03-07] MEDS: TPN 1,000 ML IV SCH (21:55)
[2017-03-08] VITALS (85 sets, daily range): BP systolic 80–135; BP diastolic 49–89; PULSE 67–100; RESP 0–30
[2017-03-08] MEDS: ACCU-CHEK XX SCH ×6 (01:00→20:31)
[2017-03-08] MEDS: ALBUTEROL 18 GM INHALER INH SCH ×3 (01:09→15:30)
[2017-03-08] MEDS: IPRATROPIUM (HFA) 12.9 GM INHALER INH SCH ×3 (01:10→15:30)
[2017-03-08] MEDS: LORAZEPAM 2 MG INJ IV PRN (05:03)
[2017-03-08 05:20] LABS: ALBUMIN 1.6 g/dl (3.3-4.9); ALBUMIN/GLOBULIN RATIO 0.45; BILIRUBIN,DIRECT 4.7 mg/dl (0.00-0.20); BILIRUBIN,INDIRECT 1.4 mg/dl (0-1.1); BILIRUBIN,TOTAL 6.1 mg/dl (0.2-1.3); CALCIUM 8.2 mg/dl (8.4-10.2); CREATININE 0.8 mg/dl (0.44-1.00); POTASSIUM 3.6 mmol/L (3.5-5.1); TOTAL PROTEIN 5.1 g/dl (6.1-8.1)
[2017-03-08 06:56] LABS: ABNORMAL IP MESSAGE 1; HEMATOCRIT 28.2 % (37.0-47.0); HEMOGLOBIN 9.1 g/dl (12.0-16.0); MEAN CORPUSCULAR HEMOGLOBIN 27.7 pg (29.0-33.0); MEAN CORPUSCULAR HGB CONC 32.3 g/dl (32.0-37.0); MEAN PLATELET VOLUME 13.8 fl (7.4-10.4); NUCLEATED RED BLOOD CELLS% 0.2 /100WBC (0.0-0.0); PLATELET COUNT 86 10^3/UL (140-415); RED BLOOD COUNT 3.28 10^6/ul (4.20-5.40); RED CELL DISTRIBUTION WIDTH 18.8 % (11.5-14.5); WHITE BLOOD COUNT 9.8 10^3/ul (4.8-10.8)
[2017-03-08 06:58] LABS: POSITIVE DIFF @See below
[2017-03-08] MEDS: PANTOPRAZOLE 40 MG INJ IV SCH (06:59)
[2017-03-08] MEDS: SODIUM HYPOCHLORITE 0.125% 473 ML BTL IRR SCH (08:19)
[2017-03-08] MEDS: COLLAGENASE 30 GM TUBE TOP SCH (08:19)
[2017-03-08] MEDS: BALSAM PERU/CASTOR OIL 60 GM TUBE TOP SCH (08:20)
[2017-03-08] MEDS: [UNRECOGNIZED DRUG - REMARK] XX SCH (08:20)
[2017-03-08 08:22] LABS: ANISOCYTOSIS 2+ (0-0); EOSINOPHILS % (M) 4 % (0-7); GIANT THROMBO% (M) 31 % (0-0); MONOCYTES % (M) 2 % (0-11); PLATELET ESTIMATE DECREASED; POIKILOCYTOSIS 3+ (0-0); POLYCHROMASIA 1+ (0-0)
[2017-03-08] MEDS: MIDODRINE 5 MG TAB PO SCH ×3 (08:23→20:20)
[2017-03-08] MEDS: MEROPENEM 1 GM/50ML(PMX) 50 ML IVPB SCH (08:23)
--- NOTE | 2017-03-08 10:49 | PN ---
Date/Time of Note Date/Time of Note DATE: 03/08/17 TIME: 10:46 Assessment/Plan VTE Prophylaxis VTE Prophylaxis Intervention: SCD's Lines/Catheters IV Catheter Type (from Nrs): Central Line Central line still needed: Yes Urinary Cath still in place: Yes Reason Cath still needed: other (indicate) Assessment/Plan Assessment/Plan Assessment/Plan 1. norbert bacteremia, cont cancidas and other abx (b) still requiring low dose levophed support 2. pulm: resp failure, cont vent support 3. gi: pancreatitis with pseudocyst, awaiting drainage (b) jaundice, likely obstructive, patient likely benefit from cholecystostomy or stent (c) coagulopathy, likely secondary to vit k deficiency, replace, aggressively work to correct coagulopathy in order to perform drainage procedures (d) cont TPN 4. anemia, improved after transfusion Subjective 24 Hr Interval Summary Free Text/Dictation intubated, no response to voice Exam/Review of Systems Vital Signs Vitals Vital Signs Date Time Temp Pulse Resp B/P Pulse Ox O2 Delivery O2 Flow Rate FiO2 03/08/17 09:15 79 26 87/56 99 03/08/17 09:00 Mechanical Ventilator 03/08/17 08:10 30 03/08/17 08:00 99.0 Intake and Output 03/07/17 03/07/17 03/08/17 15:00 23:00 07:00 Intake Total 776.87 ml 1424.05 ml 707.48 ml Output Total 237 ml 195 ml 285 ml Balance 539.87 ml 1229.05 ml 422.48 ml Exam nad, intubated, L subclavian line edematous Results Result Diagram: 03/08/17 0400 03/08/17 0400 Results 24 hrs Laboratory Tests Test 03/07/17 13:14 03/07/17 22:58 03/08/17 04:00 03/08/17 08:47 Bedside Glucose 113 104 117 White Blood Count 9.8 Red Blood Count 3.28 #L Hemoglobin 9.1 #L Hematocrit 28.2 #L Mean Corpuscular Volume 86.0 Mean Corpuscular Hemoglobin 27.7 L Mean Corpuscular Hemoglobin Concent 32.3 Red Cell Distribution Width 18.8 H Platelet Count 86 #L Mean Platelet Volume 13.8 H Neutrophils % Segmented Neutrophils % (Manual) 88 H Band Neutrophils % (Manual) 5 H Lymphocytes % Lymphocytes % (Manual) 2 L Monocytes % Monocytes % (Manual) 2 Eosinophils % Eosinophils % (Manual) 4 Basophils % Nucleated Red Blood Cells % 0.2 H Neutrophils # Neutrophils # (Manual) 8.7 H Band Neutrophils # 0.4 Absolute Lymphocytes (Manual) 0.1 L Lymphocytes # Monocytes # Absolute Monocytes (Manual) 0.1 L Eosinophils # Basophils # Nucleated Red Blood Cells # Smudge Cells % 35 H Thrombocytosis 31 H Platelet Estimate DECREASED Platelet Morphology Comment @See below Polychromasia 1+ Poikilocytosis 3+ Anisocytosis 2+ Macrocytosis 2+ Sodium Level 143 Potassium Level 3.6 Chloride Level 114 H Carbon Dioxide Level 19 L Anion Gap 14 Blood Urea Nitrogen 23 H Creatinine 0.80 Glucose Level 95 Calcium Level 8.2 L Total Bilirubin 6.1 H Direct Bilirubin 4.70 H Indirect Bilirubin 1.4 H Aspartate Amino Transf (AST/SGOT) 45 Alanine Aminotransferase (ALT/SGPT) 30 Alkaline Phosphatase 257 H Total Protein 5.1 L Albumin 1.6 L Globulin 3.50 H Albumin/Globulin Ratio 0.45 Medications Medications Current Medications Ondansetron HCl (Zofran Inj) 4 mg Q6H PRN IV NAUSEA AND/OR VOMITING Last administered on 02/13/17 00:36; Admin Dose 4 MG; Start 02/11/17 at 10:00 Acetaminophen (Tylenol Tab) 650 mg Q6H PRN PO PAIN LEVEL 1-3 OR FEVER Last administered on 02/25/17 19:51; Admin Dose 650 MG; Start 02/11/17 at 10:00 Docusate Sodium (Colace) 100 mg Q12H PRN PO CONSTIPATION; Start 02/11/17 at 10: 00 Bisacodyl (Dulcolax Supp) 10 mg DAILY PRN [place] CONSTIPATION; Start 02/11/17 at 10 :00 Miscellaneous Information (Pending Santyl Order For Wound Care) This patient prado... PRN PRN XX WOUND CARE; Start 02/11/17 at 19:00 Collagenase (Santyl) 1 applic DAILY TOP Last administered on 03/08/17 08:19; Admin Dose 1 APPLIC; Start 02/12/17 at 13:30 Diphenhydramine HCl (Benadryl) 25 mg Q6H PRN IV ITCHING Last administered on 03:22; Admin Dose 25 MG; Start 02/12/17 at 14:00 Alprazolam (Xanax) 0.25 mg Q12H PRN PO ANXIETY Last administered on 03/07/17 08 :10; Admin Dose 0.25 MG; Start 02/19/17 at 14:00 Pantoprazole (Protonix Iv) 40 mg DAILY@06 IV Last administered on 03/08/17 06: 59; Admin Dose 40 MG; Start 02/23/17 at 06:00 Midodrine (Proamatine) 5 mg TID PO Last administered on 03/08/17 08:23; Admin Dose 5 MG; Start 02/23/17 at 13:30 Lorazepam (Ativan) 0.5 mg Q8H PRN IV AGITATION/ANXIETY Last administered on 03/08 05:03; Admin Dose 0.5 MG; Start 02/23/17 at 13:30 Miscellaneous Information DAILY XX Last administered on 03/07/17 09:00; Admin Dose 1 EA; Start 02/25/17 at 09:00 Midazolam HCl 50 ml @ 1 mls/hr TITRATE IV Last administered on 02/25/17 22:54 ; Admin Dose 2 MLS/HR; Start 02/25/17 at 10:00 Fentanyl 100 ml @ 2.5 mls/hr TITRATE IV Last administered on 02/25/17 10:43; Admin Dose 2.5 MLS/HR; Start 02/25/17 at 10:00 Norepinephrine 32 mg/Dextrose 500 ml @ 0 mls/hr TITRATE IV Last administered on 03/04/17 21:10; Admin Dose 13.12 MLS/HR; Start 02/28/17 at 11:30 Phenylephrine HCl 80 mg/Dextrose 500 ml @ 0 mls/hr TITRATE IV Last administered on 02/28/17 14:18; Admin Dose 7.5 MLS/HR; Start 02/28/17 at 11:30 Vancomycin HCl 750 mg/Dextrose/ Water 150 ml @ 75 mls/hr Q48H IVPB Last administered on 03/07/17 01:55; Admin Dose 75 MLS/HR; Start 03/03/17 at 01:00 Dextrose/Sodium Chloride (D5-NS) 1,000 ml @ 35 mls/hr Q24H IV Last administered on 03/07/17 21:49; Admin Dose 35 MLS/HR; Start 03/02/17 at 12:30 Miscellaneous Information 1 ea NOTE XX ; Start 03/02/17 at 12:30 Glucose (Glutose) 15 gm Q15M PRN PO DECREASED GLUCOSE; Start 03/02/17 at 12:30 Glucose (Glutose) 22.5 gm Q15M PRN PO DECREASED GLUCOSE; Start 03/02/17 at 12: 30 Dextrose (D50w Syringe) 25 ml Q15M PRN IV DECREASED GLUCOSE Last administered on 03/02/17 12:18; Admin Dose 25 ML; Start 03/02/17 at 12:30 Dextrose (D50w Syringe) 50 ml Q15M PRN IV DECREASED GLUCOSE; Start 03/02/17 at 12:30 Glucagon (Glucagen) 1 mg Q15M PRN IM DECREASED GLUCOSE; Start 03/02/17 at 12:30 Glucose (Glutose) 15 gm Q15M PRN BUCCAL DECREASED GLUCOSE; Start 03/02/17 at 12 :30 Diagnostic Test (Pha) 1 ea 1 ea Q4 XX Last administered on 03/08/17 08:20; Admin Dose 1 EA; Start 03/04/17 at 09:00 Caspofungin 35 mg/ Sodium Chloride 250 ml @ 250 mls/hr Q24H IVPB Last administered on 03/07/17 15:47; Admin Dose 250 MLS/HR; Start 03/04/17 at 15:00 Total Parenteral Nutrition (Tpn) 1,000 ml @ 40 mls/hr Q24H IV Last administered on 03/07/17 21:55; Admin Dose 40 MLS/HR; Start 03/06/17 at 20:00 Sodium Hypochlorite (Dakin'S (1/4 Strength)) 1 applic DAILY IRR Last administered on 03/08/17 08:19; Admin Dose 1 APPLIC; Start 03/07/17 at 09:00 Morphine Sulfate 2 mg 2 mg Q4H PRN IV PAIN LEVEL 7-10 Last administered on 12:25; Admin Dose 2 MG; Start 03/07/17 at 10:00 Meropenem/Sodium Chloride (Merrem 1 Gm/50 ml (Pmx)) 50 ml @ 100 mls/hr Q12 IVPB Last administered on 03/08/17t 08:23; Admin Dose 100 MLS/HR; Start 03/07/17 at 11:30 BERENICE BUTLER MD Mar 08, 2017 10:49
--- NOTE | 2017-03-08 11:09 | CONS ---
Date/Time of Note Date/Time of Note DATE: 03/08/17 TIME: 10:59 Assessment/Plan Assessment/Plan Chief Complaint/Hosp Course ID PROGRESS NOTE TOTAL ABX DAY #11 => VANCO IV + Cancidas MERREM -> DC 03/08 24H INTERVAL SUMMARY * Alert, awake, responsive, TMax 99.+, WBC normalized * More alert, awake, responsive * Repeat urine Cx post FC change is (-), repeat BCx post line change pending * MICRO: (+)Yeast UTI (+)Yeast BCx = Fungemia due to Infected PICC line + UTI * 02/25 BCx(+)Yeast; 02/28/17 BCx (+) Yeast; 03/02 BCx (-) GENERAL: Elderly lady on mechanical ventilation orally intubated. VITAL SIGNS: see below. HEENT: Unremarkable ETT-> secure to Vent CARDIAC: S1, S2, 1/6 systolic ejection murmur CHEST: Diminished air entry bilaterally. ABDOMEN: Mildly distended. Bowel sounds present no guarding or rebound EXTREMITIES: No cyanosis, clubbing edema +2 NEUROLOGIC: Generalized weakness ID ASSESSMENT 86 yo F with: 1. Sepsis w/Fevers >102.+ 02/24 &, leukocytosis, tachycardia => Disseminated Fungemia ->IMPROVING * Repeat BCx via new PICC 03/06 pending * BCx 02/25 (+) YEAST => Infx PICC line== PICC DC'd 03/06/17 * 02/25/17 YEAST UTI = FC changed 2. Acute hypoxic respiratory failure=> Intubated 02/24 in setting of sepsis 3. Severe pancreatitis with pseudocyst, currently on TPN. 4. Acute on chronic anemia status post blood product transfusion 5. Urinary retention 6. s/p VRE UTI 02/15/17 7. s/p acute kidney injury 8. Venous thromboembolism with episode of DVT, status post IVC filter. Repeat Doppler negative for DVT (+)MRSA Nares screen (+)MRSA Stool colonization (+)VRE Stool colonization INVASIVES: Left CVC 03/05/17, ETT, OGT ABX ALLERGY: PCN CURRENT ABX: #11 => VANCO IV + Cancidas MERREM -> DC 03/08 ID RECOMMENDATIONS So far, she has improved now that yeast infx FC & PICC changed * -> Repeat urine Cx post FC change is (-), repeat BCx post line change pending 1. Let's downgrade ABX -> DC Merrem, continue Vanco for (+)MRSA colonization 2. Repeat UA C&S, sputum for Temp >101.5 . Problems: Consultation Date/Type/Reason Admit Date/Time Feb 11, 2017 at 05:28 Initial Consult Date 02/21/17 Type of Consultation: ID Referring Provider: BONIFACIO COWART Exam/Review of Systems Vital Signs Vitals Vital Signs Date Time Temp Pulse Resp B/P Pulse Ox O2 Delivery O2 Flow Rate FiO2 03/08/17 09:15 79 26 87/56 99 03/08/17 09:00 Mechanical Ventilator 03/08/17 08:10 30 03/08/17 08:00 99.0 Intake and Output 03/07/17 03/07/17 03/08/17 15:00 23:00 07:00 Intake Total 776.87 ml 1424.05 ml 707.48 ml Output Total 237 ml 195 ml 285 ml Balance 539.87 ml 1229.05 ml 422.48 ml Results Result Diagram: 03/08/17 0400 03/08/17 0400 Results 24 hrs Laboratory Tests Test 03/07/17 13:14 03/07/17 22:58 03/08/17 04:00 03/08/17 08:47 Bedside Glucose 113 104 117 White Blood Count 9.8 Red Blood Count 3.28 #L Hemoglobin 9.1 #L Hematocrit 28.2 #L Mean Corpuscular Volume 86.0 Mean Corpuscular Hemoglobin 27.7 L Mean Corpuscular Hemoglobin Concent 32.3 Red Cell Distribution Width 18.8 H Platelet Count 86 #L Mean Platelet Volume 13.8 H Neutrophils % Segmented Neutrophils % (Manual) 88 H Band Neutrophils % (Manual) 5 H Lymphocytes % Lymphocytes % (Manual) 2 L Monocytes % Monocytes % (Manual) 2 Eosinophils % Eosinophils % (Manual) 4 Basophils % Nucleated Red Blood Cells % 0.2 H Neutrophils # Neutrophils # (Manual) 8.7 H Band Neutrophils # 0.4 Absolute Lymphocytes (Manual) 0.1 L Lymphocytes # Monocytes # Absolute Monocytes (Manual) 0.1 L Eosinophils # Basophils # Nucleated Red Blood Cells # Smudge Cells % 35 H Thrombocytosis 31 H Platelet Estimate DECREASED Platelet Morphology Comment @See below Polychromasia 1+ Poikilocytosis 3+ Anisocytosis 2+ Macrocytosis 2+ Sodium Level 143 Potassium Level 3.6 Chloride Level 114 H Carbon Dioxide Level 19 L Anion Gap 14 Blood Urea Nitrogen 23 H Creatinine 0.80 Glucose Level 95 Calcium Level 8.2 L Total Bilirubin 6.1 H Direct Bilirubin 4.70 H Indirect Bilirubin 1.4 H Aspartate Amino Transf (AST/SGOT) 45 Alanine Aminotransferase (ALT/SGPT) 30 Alkaline Phosphatase 257 H Total Protein 5.1 L Albumin 1.6 L Globulin 3.50 H Albumin/Globulin Ratio 0.45 Medications Medications Current Medications Ondansetron HCl (Zofran Inj) 4 mg Q6H PRN IV NAUSEA AND/OR VOMITING Last administered on 02/13/17 00:36; Admin Dose 4 MG; Start 02/11/17 at 10:00 Acetaminophen (Tylenol Tab) 650 mg Q6H PRN PO PAIN LEVEL 1-3 OR FEVER Last administered on 02/25/17 19:51; Admin Dose 650 MG; Start 02/11/17 at 10:00 Docusate Sodium (Colace) 100 mg Q12H PRN PO CONSTIPATION; Start 02/11/17 at 10: 00 Bisacodyl (Dulcolax Supp) 10 mg DAILY PRN [place] CONSTIPATION; Start 02/11/17 at 10 :00 Miscellaneous Information (Pending Santyl Order For Wound Care) This patient prado... PRN PRN XX WOUND CARE; Start 02/11/17 at 19:00 Collagenase (Santyl) 1 applic DAILY TOP Last administered on 03/08/17 08:19; Admin Dose 1 APPLIC; Start 02/12/17 at 13:30 Diphenhydramine HCl (Benadryl) 25 mg Q6H PRN IV ITCHING Last administered on 03:22; Admin Dose 25 MG; Start 02/12/17 at 14:00 Alprazolam (Xanax) 0.25 mg Q12H PRN PO ANXIETY Last administered on 03/07/17 08 :10; Admin Dose 0.25 MG; Start 02/19/17 at 14:00 Pantoprazole (Protonix Iv) 40 mg DAILY@06 IV Last administered on 03/08/17 06: 59; Admin Dose 40 MG; Start 02/23/17 at 06:00 Midodrine (Proamatine) 5 mg TID PO Last administered on 03/08/17 08:23; Admin Dose 5 MG; Start 02/23/17 at 13:30 Lorazepam (Ativan) 0.5 mg Q8H PRN IV AGITATION/ANXIETY Last administered on 03/08 05:03; Admin Dose 0.5 MG; Start 02/23/17 at 13:30 Miscellaneous Information DAILY XX Last administered on 03/07/17 09:00; Admin Dose 1 EA; Start 02/25/17 at 09:00 Midazolam HCl 50 ml @ 1 mls/hr TITRATE IV Last administered on 02/25/17 22:54 ; Admin Dose 2 MLS/HR; Start 02/25/17 at 10:00 Fentanyl 100 ml @ 2.5 mls/hr TITRATE IV Last administered on 02/25/17 10:43; Admin Dose 2.5 MLS/HR; Start 02/25/17 at 10:00 Norepinephrine 32 mg/Dextrose 500 ml @ 0 mls/hr TITRATE IV Last administered on 03/04/17 21:10; Admin Dose 13.12 MLS/HR; Start 02/28/17 at 11:30 Phenylephrine HCl 80 mg/Dextrose 500 ml @ 0 mls/hr TITRATE IV Last administered on 02/28/17 14:18; Admin Dose 7.5 MLS/HR; Start 02/28/17 at 11:30 Vancomycin HCl 750 mg/Dextrose/ Water 150 ml @ 75 mls/hr Q48H IVPB Last administered on 03/07/17 01:55; Admin Dose 75 MLS/HR; Start 03/03/17 at 01:00 Dextrose/Sodium Chloride (D5-NS) 1,000 ml @ 35 mls/hr Q24H IV Last administered on 03/07/17 21:49; Admin Dose 35 MLS/HR; Start 03/02/17 at 12:30 Miscellaneous Information 1 ea NOTE XX ; Start 03/02/17 at 12:30 Glucose (Glutose) 15 gm Q15M PRN PO DECREASED GLUCOSE; Start 03/02/17 at 12:30 Glucose (Glutose) 22.5 gm Q15M PRN PO DECREASED GLUCOSE; Start 03/02/17 at 12: 30 Dextrose (D50w Syringe) 25 ml Q15M PRN IV DECREASED GLUCOSE Last administered on 03/02/17 12:18; Admin Dose 25 ML; Start 03/02/17 at 12:30 Dextrose (D50w Syringe) 50 ml Q15M PRN IV DECREASED GLUCOSE; Start 03/02/17 at 12:30 Glucagon (Glucagen) 1 mg Q15M PRN IM DECREASED GLUCOSE; Start 03/02/17 at 12:30 Glucose (Glutose) 15 gm Q15M PRN BUCCAL DECREASED GLUCOSE; Start 03/02/17 at 12 :30 Diagnostic Test (Pha) 1 ea 1 ea Q4 XX Last administered on 03/08/17 08:20; Admin Dose 1 EA; Start 03/04/17 at 09:00 Caspofungin 35 mg/ Sodium Chloride 250 ml @ 250 mls/hr Q24H IVPB Last administered on 03/07/17 15:47; Admin Dose 250 MLS/HR; Start 03/04/17 at 15:00 Total Parenteral Nutrition (Tpn) 1,000 ml @ 40 mls/hr Q24H IV Last administered on 03/07/17 21:55; Admin Dose 40 MLS/HR; Start 03/06/17 at 20:00 Sodium Hypochlorite (Dakin'S (1/4 Strength)) 1 applic DAILY IRR Last administered on 03/08/17 08:19; Admin Dose 1 APPLIC; Start 03/07/17 at 09:00 Morphine Sulfate 2 mg 2 mg Q4H PRN IV PAIN LEVEL 7-10 Last administered on 12:25; Admin Dose 2 MG; Start 03/07/17 at 10:00 Meropenem/Sodium Chloride (Merrem 1 Gm/50 ml (Pmx)) 50 ml @ 100 mls/hr Q12 IVPB Last administered on 03/08/17 08:23; Admin Dose 100 MLS/HR; Start 03/07/17 at 11:30 DEBORA WILLOUGHBY NP Mar 08, 2017 11:09
[2017-03-08 12:24] LABS: INR 1.82; PROTIME 21.2 Sec (12.2-14.2); PT RATIO 1.7
[2017-03-08 12:25] LABS: PARTIAL THROMBOPLASTIN TIME 44.9 Sec (25.0-35.0)
--- NOTE | 2017-03-08 12:42 | PN ---
Date/Time of Note Date/Time of Note DATE: 03/08/17 TIME: 12:41 Assessment/Plan Lines/Catheters IV Catheter Type (from Nrsg): Central Line Elder in Place (from Nrsg): Yes Assessment/Plan Chief Complaint/Hosp Course Additional Assessment/Plan Respiratory failure Pancreatitis Infected PICC line Patient will be needing a central line I had a discussion with the son today He is in agreement to proceed with a central line Response complications alternative therapies explained to the patient's son All questions answered SP central line placement, site clean will continue supp care Problems: Subjective 24 Hr Interval Summary Constitutional: improved Pain Control: mild Exam/Review of Systems Vital Signs Vitals Vital Signs Date Time Temp Pulse Resp B/P Pulse Ox O2 Delivery O2 Flow Rate FiO2 03/08/17 12:00 99 03/08/17 11:36 26 98 30 03/08/17 09:15 87/56 03/08/17 09:00 Mechanical Ventilator 03/08/17 08:00 99.0 Intake and Output 03/07/17 03/07/17 03/08/17 15:00 23:00 07:00 Intake Total 776.87 ml 1424.05 ml 707.48 ml Output Total 237 ml 195 ml 285 ml Balance 539.87 ml 1229.05 ml 422.48 ml Exam Neck: non-tender, supple Respiratory: clear to auscultation, normal air movement Cardiovascular: nl pulses, regular rate and rhythm Gastrointestinal: nl liver, spleen, non-tender, soft Results Result Diagram: 03/08/17 0400 03/08/17399 LUIZ SEQUEIRA MD Mar 08, 2017 12:42
--- NOTE | 2017-03-08 13:24 | CONS ---
Date/Time of Note Date/Time of Note DATE: 03/08/17 TIME: 13:20 Consult Date/Type/Reason Admit Date/Time Feb 11, 2017 at 05:28 Initial Consult Date 02/21/17 Type of Consultation: Pulm/CCM Ordering Provider: BONIFACIO COWART Subjective No events overnight. on [facility] vent. Objective Vital Signs Date Time Temp Pulse Resp B/P Pulse Ox O2 Delivery O2 Flow Rate FiO2 03/08/17 12:00 99 03/08/17 11:36 26 98 30 03/08/17 09:15 87/56 03/08/17 09:00 Mechanical Ventilator 03/08/17 08:00 99.0 Intake and Output 03/07/17 03/07/17 03/08/17 15:00 23:00 07:00 Intake Total 776.87 ml 1424.05 ml 707.48 ml Output Total 237 ml 195 ml 285 ml Balance 539.87 ml 1229.05 ml 422.48 ml Exam HEENT: Neck supple; no JVD; no LAD; + ET tube CVS: RRR, S1 and S2 CHEST: Clear ABD: Soft, NT, + BS EXT: No c/c/e Results/Medications Result Diagram: 03/08/17 0400 03/08/17 0400 Results 24 hrs Laboratory Tests Test 03/07/17 22:58 03/08/17 04:00 03/08/17 08:47 03/08/17 12:00 Bedside Glucose 104 117 White Blood Count 9.8 Red Blood Count 3.28 #L Hemoglobin 9.1 #L Hematocrit 28.2 #L Mean Corpuscular Volume 86.0 Mean Corpuscular Hemoglobin 27.7 L Mean Corpuscular Hemoglobin Concent 32.3 Red Cell Distribution Width 18.8 H Platelet Count 86 #L Mean Platelet Volume 13.8 H Neutrophils % Segmented Neutrophils % (Manual) 88 H Band Neutrophils % (Manual) 5 H Lymphocytes % Lymphocytes % (Manual) 2 L Monocytes % Monocytes % (Manual) 2 Eosinophils % Eosinophils % (Manual) 4 Basophils % Nucleated Red Blood Cells % 0.2 H Neutrophils # Neutrophils # (Manual) 8.7 H Band Neutrophils # 0.4 Absolute Lymphocytes (Manual) 0.1 L Lymphocytes # Monocytes # Absolute Monocytes (Manual) 0.1 L Eosinophils # Basophils # Nucleated Red Blood Cells # Smudge Cells % 35 H Thrombocytosis 31 H Platelet Estimate DECREASED Platelet Morphology Comment @See below Polychromasia 1+ Poikilocytosis 3+ Anisocytosis 2+ Macrocytosis 2+ Sodium Level 143 Potassium Level 3.6 Chloride Level 114 H Carbon Dioxide Level 19 L Anion Gap 14 Blood Urea Nitrogen 23 H Creatinine 0.80 Glucose Level 95 Calcium Level 8.2 L Total Bilirubin 6.1 H Direct Bilirubin 4.70 H Indirect Bilirubin 1.4 H Aspartate Amino Transf (AST/SGOT) 45 Alanine Aminotransferase (ALT/SGPT) 30 Alkaline Phosphatase 257 H Total Protein 5.1 L Albumin 1.6 L Globulin 3.50 H Albumin/Globulin Ratio 0.45 Prothrombin Time 21.2 H Prothrombin Time Ratio 1.7 INR International Normalized Ratio 1.82 Activated Partial Thromboplast Time 44.9 H Medications Current Medications Ondansetron HCl (Zofran Inj) 4 mg Q6H PRN IV NAUSEA AND/OR VOMITING Last administered on 02/13/17 00:36; Admin Dose 4 MG; Start 02/11/17 at 10:00 Acetaminophen (Tylenol Tab) 650 mg Q6H PRN PO PAIN LEVEL 1-3 OR FEVER Last administered on 02/25/17 19:51; Admin Dose 650 MG; Start 02/11/17 at 10:00 Docusate Sodium (Colace) 100 mg Q12H PRN PO CONSTIPATION; Start 02/11/17 at 10: 00 Bisacodyl (Dulcolax Supp) 10 mg DAILY PRN [place] CONSTIPATION; Start 02/11/17 at 10 :00 Miscellaneous Information (Pending Santyl Order For Wound Care) This patient prado... PRN PRN XX WOUND CARE; Start 02/11/17 at 19:00 Collagenase (Santyl) 1 applic DAILY TOP Last administered on 03/08/17 08:19; Admin Dose 1 APPLIC; Start 02/12/17 at 13:30 Diphenhydramine HCl (Benadryl) 25 mg Q6H PRN IV ITCHING Last administered on 03:22; Admin Dose 25 MG; Start 02/12/17 at 14:00 Alprazolam (Xanax) 0.25 mg Q12H PRN PO ANXIETY Last administered on 03/07/17 08 :10; Admin Dose 0.25 MG; Start 02/19/17 at 14:00 Pantoprazole (Protonix Iv) 40 mg DAILY@06 IV Last administered on 03/08/17 06: 59; Admin Dose 40 MG; Start 02/23/17 at 06:00 Midodrine (Proamatine) 5 mg TID PO Last administered on 03/08/17 08:23; Admin Dose 5 MG; Start 02/23/17 at 13:30 Lorazepam (Ativan) 0.5 mg Q8H PRN IV AGITATION/ANXIETY Last administered on 03/08 05:03; Admin Dose 0.5 MG; Start 02/23/17 at 13:30 Miscellaneous Information DAILY XX Last administered on 03/07/17 09:00; Admin Dose 1 EA; Start 02/25/17 at 09:00 Midazolam HCl 50 ml @ 1 mls/hr TITRATE IV Last administered on 02/25/17 22:54 ; Admin Dose 2 MLS/HR; Start 02/25/17 at 10:00 Fentanyl 100 ml @ 2.5 mls/hr TITRATE IV Last administered on 02/25/17 10:43; Admin Dose 2.5 MLS/HR; Start 02/25/17 at 10:00 Norepinephrine 32 mg/Dextrose 500 ml @ 0 mls/hr TITRATE IV Last administered on 03/04/17 21:10; Admin Dose 13.12 MLS/HR; Start 02/28/17 at 11:30 Phenylephrine HCl 80 mg/Dextrose 500 ml @ 0 mls/hr TITRATE IV Last administered on 02/28/17 14:18; Admin Dose 7.5 MLS/HR; Start 02/28/17 at 11:30 Vancomycin HCl 750 mg/Dextrose/ Water 150 ml @ 75 mls/hr Q48H IVPB Last administered on 03/07/17 01:55; Admin Dose 75 MLS/HR; Start 03/03/17 at 01:00 Dextrose/Sodium Chloride (D5-NS) 1,000 ml @ 35 mls/hr Q24H IV Last administered on 03/07/17 21:49; Admin Dose 35 MLS/HR; Start 03/02/17 at 12:30 Miscellaneous Information 1 ea NOTE XX ; Start 03/02/17 at 12:30 Glucose (Glutose) 15 gm Q15M PRN PO DECREASED GLUCOSE; Start 03/02/17 at 12:30 Glucose (Glutose) 22.5 gm Q15M PRN PO DECREASED GLUCOSE; Start 03/02/17 at 12: 30 Dextrose (D50w Syringe) 25 ml Q15M PRN IV DECREASED GLUCOSE Last administered on 03/02/17 12:18; Admin Dose 25 ML; Start 03/02/17 at 12:30 Dextrose (D50w Syringe) 50 ml Q15M PRN IV DECREASED GLUCOSE; Start 03/02/17 at 12:30 Glucagon (Glucagen) 1 mg Q15M PRN IM DECREASED GLUCOSE; Start 03/02/17 at 12:30 Glucose (Glutose) 15 gm Q15M PRN BUCCAL DECREASED GLUCOSE; Start 03/02/17 at 12 :30 Diagnostic Test (Pha) 1 ea 1 ea Q4 XX Last administered on 03/08/17 08:20; Admin Dose 1 EA; Start 03/04/17 at 09:00 Caspofungin 35 mg/ Sodium Chloride 250 ml @ 250 mls/hr Q24H IVPB Last administered on 03/07/17 15:47; Admin Dose 250 MLS/HR; Start 03/04/17 at 15:00 Total Parenteral Nutrition (Tpn) 1,000 ml @ 40 mls/hr Q24H IV Last administered on 03/07/17 21:55; Admin Dose 40 MLS/HR; Start 03/06/17 at 20:00 Sodium Hypochlorite (Dakin'S (1/4 Strength)) 1 applic DAILY IRR Last administered on 03/08/17 08:19; Admin Dose 1 APPLIC; Start 03/07/17 at 09:00 Morphine Sulfate (morphine) 2 mg Q4H PRN IV PAIN LEVEL 7-10 Last administered on 03/07/17 12:25; Admin Dose 2 MG; Start 03/07/17 at 10:00 Assessment/Plan Additional Assessment/Plan IMP: 1. Vent Dependent Resp Failure 2. Fungemia 3. Pancreatitis 4. AMS/Encephalopathy 5. Anemia RECS: 1. Vent support 2 Would discuss goals of care and consider transitioning to comfort measures 3. Palliative Care consult 4. Anti-fungals per ID 5. Prognosis grim 35 min cc time JAIR SUAREZ MD Mar 08, 2017 13:24
--- NOTE | 2017-03-08 14:33 | PN ---
Date/Time of Note Date/Time of Note DATE: 03/08/17 TIME: 14:27 Assessment/Plan VTE Prophylaxis VTE Prophylaxis Intervention: SCD's Lines/Catheters [facility] Line Central line still needed: Yes Urinary Cath still in place: Yes Reason Cath still needed: urinary retention Assessment/Plan Assessment/Plan Assessment/Plan Sepsis * Acute respiratory failure management c/o pulmonary * Encephalopathy * Anemia/recurrent/probable GI bleeding * Refused EGD * Pancreatitis with Pancreatic pseudocyst/awaiting drainage * Coagulopathy * H/O tube cholecystostomy/biliary stent * Rule out stent occlusion Plan : * Continue present regimen * monitor hemoglobin and hematocrit daily and transfuse per protocol * further orders will depend on clinical course * The patient would benefit from endoscopic evaluation in ERCP with stent removal or replacement however this has been refused when the patient was in more stable condition at the present time she appears to be too unstable for invasive procedures Subjective 24 Hr Interval Summary Free Text/Dictation * course reviewed with RN * patient seen and examined * No untoward events overnight * Remains unresponsive * Bilirubin elevation may be related to biliary stent occlusion versus sepsis * If and when more stable stent should be removed or replaced, patient's son has previously refused any type of endoscopic examination Exam/Review of Systems Vital Signs Vitals Vital Signs Date Time Temp Pulse Resp B/P Pulse Ox O2 Delivery O2 Flow Rate FiO2 03/08/17 12:00 99 03/08/17 11:36 26 98 30 03/08/17 09:15 87/56 03/08/17 09:00 Mechanical Ventilator 03/08/17 08:00 99.0 Intake and Output 03/07/17 03/07/17 03/08/17 15:00 23:00 07:00 Intake Total 776.87 ml 1424.05 ml 707.48 ml Output Total 237 ml 195 ml 285 ml Balance 539.87 ml 1229.05 ml 422.48 ml Exam Constitutional: frail, intubated, on low-dose pressors ENMT: intubated Neck: non-tender, supple Respiratory: crackles/rales, diminished breath sounds Cardiovascular: nl pulses, regular rate and rhythm Gastrointestinal: distended, non-tender, fullness upper abdomen Musculoskeletal: muscle weakness Extremities: pitting pedal edema Neurological: lethargic Skin: ecchymosis Lymph: nl lymph node Results Result Diagram: 03/08/170 03/08/170 Results 24 hrs Laboratory Tests Test 03/07/17 22:58 03/08/17 04:00 03/08/17 08:47 03/08/17 12:00 Bedside Glucose 104 117 White Blood Count 9.8 Red Blood Count 3.28 #L Hemoglobin 9.1 #L Hematocrit 28.2 #L Mean Corpuscular Volume 86.0 Mean Corpuscular Hemoglobin 27.7 L Mean Corpuscular Hemoglobin Concent 32.3 Red Cell Distribution Width 18.8 H Platelet Count 86 #L Mean Platelet Volume 13.8 H Neutrophils % Segmented Neutrophils % (Manual) 88 H Band Neutrophils % (Manual) 5 H Lymphocytes % Lymphocytes % (Manual) 2 L Monocytes % Monocytes % (Manual) 2 Eosinophils % Eosinophils % (Manual) 4 Basophils % Nucleated Red Blood Cells % 0.2 H Neutrophils # Neutrophils # (Manual) 8.7 H Band Neutrophils # 0.4 Absolute Lymphocytes (Manual) 0.1 L Lymphocytes # Monocytes # Absolute Monocytes (Manual) 0.1 L Eosinophils # Basophils # Nucleated Red Blood Cells # Smudge Cells % 35 H Thrombocytosis 31 H Platelet Estimate DECREASED Platelet Morphology Comment @See below Polychromasia 1+ Poikilocytosis 3+ Anisocytosis 2+ Macrocytosis 2+ Sodium Level 143 Potassium Level 3.6 Chloride Level 114 H Carbon Dioxide Level 19 L Anion Gap 14 Blood Urea Nitrogen 23 H Creatinine 0.80 Glucose Level 95 Calcium Level 8.2 L Total Bilirubin 6.1 H Direct Bilirubin 4.70 H Indirect Bilirubin 1.4 H Aspartate Amino Transf (AST/SGOT) 45 Alanine Aminotransferase (ALT/SGPT) 30 Alkaline Phosphatase 257 H Total Protein 5.1 L Albumin 1.6 L Globulin 3.50 H Albumin/Globulin Ratio 0.45 Prothrombin Time 21.2 H Prothrombin Time Ratio 1.7 INR International Normalized Ratio 1.82 Activated Partial Thromboplast Time 44.9 H Medications Medications Current Medications Ondansetron HCl (Zofran Inj) 4 mg Q6H PRN IV NAUSEA AND/OR VOMITING Last administered on 02/13/17 00:36; Admin Dose 4 MG; Start 02/11/17 at 10:00 Acetaminophen (Tylenol Tab) 650 mg Q6H PRN PO PAIN LEVEL 1-3 OR FEVER Last administered on 02/25/17 19:51; Admin Dose 650 MG; Start 02/11/17 at 10:00 Docusate Sodium (Colace) 100 mg Q12H PRN PO CONSTIPATION; Start 02/11/17 at 10: 00 Bisacodyl (Dulcolax Supp) 10 mg DAILY PRN [place] CONSTIPATION; Start 02/11/17 at 10 :00 Miscellaneous Information (Pending Santyl Order For Wound Care) This patient prado... PRN PRN XX WOUND CARE; Start 02/11/17 at 19:00 Collagenase (Santyl) 1 applic DAILY TOP Last administered on 03/08/17 08:19; Admin Dose 1 APPLIC; Start 02/12/17 at 13:30 Diphenhydramine HCl (Benadryl) 25 mg Q6H PRN IV ITCHING Last administered on 03:22; Admin Dose 25 MG; Start 02/12/17 at 14:00 Alprazolam (Xanax) 0.25 mg Q12H PRN PO ANXIETY Last administered on 03/07/17 08 :10; Admin Dose 0.25 MG; Start 02/19/17 at 14:00 Pantoprazole (Protonix Iv) 40 mg DAILY@06 IV Last administered on 03/08/17 06: 59; Admin Dose 40 MG; Start 02/23/17 at 06:00 Midodrine (Proamatine) 5 mg TID PO Last administered on 03/08/17 08:23; Admin Dose 5 MG; Start 02/23/17 at 13:30 Lorazepam (Ativan) 0.5 mg Q8H PRN IV AGITATION/ANXIETY Last administered on 03/08 05:03; Admin Dose 0.5 MG; Start 02/23/17 at 13:30 Miscellaneous Information DAILY XX Last administered on 03/07/17 09:00; Admin Dose 1 EA; Start 02/25/17 at 09:00 Midazolam HCl 50 ml @ 1 mls/hr TITRATE IV Last administered on 02/25/17 22:54 ; Admin Dose 2 MLS/HR; Start 02/25/17 at 10:00 Fentanyl 100 ml @ 2.5 mls/hr TITRATE IV Last administered on 02/25/17 10:43; Admin Dose 2.5 MLS/HR; Start 02/25/17 at 10:00 Norepinephrine 32 mg/Dextrose 500 ml @ 0 mls/hr TITRATE IV Last administered on 03/04/17 21:10; Admin Dose 13.12 MLS/HR; Start 02/28/17 at 11:30 Phenylephrine HCl 80 mg/Dextrose 500 ml @ 0 mls/hr TITRATE IV Last administered on 02/28/17 14:18; Admin Dose 7.5 MLS/HR; Start 02/28/17 at 11:30 Vancomycin HCl 750 mg/Dextrose/ Water 150 ml @ 75 mls/hr Q48H IVPB Last administered on 03/07/17 01:55; Admin Dose 75 MLS/HR; Start 03/03/17 at 01:00 Dextrose/Sodium Chloride (D5-NS) 1,000 ml @ 35 mls/hr Q24H IV Last administered on 03/07/17 21:49; Admin Dose 35 MLS/HR; Start 03/02/17 at 12:30 Miscellaneous Information 1 ea NOTE XX ; Start 03/02/17 at 12:30 Glucose (Glutose) 15 gm Q15M PRN PO DECREASED GLUCOSE; Start 03/02/17 at 12:30 Glucose (Glutose) 22.5 gm Q15M PRN PO DECREASED GLUCOSE; Start 03/02/17 at 12: 30 Dextrose (D50w Syringe) 25 ml Q15M PRN IV DECREASED GLUCOSE Last administered on 03/02/17 12:18; Admin Dose 25 ML; Start 03/02/17 at 12:30 Dextrose (D50w Syringe) 50 ml Q15M PRN IV DECREASED GLUCOSE; Start 03/02/17 at 12:30 Glucagon (Glucagen) 1 mg Q15M PRN IM DECREASED GLUCOSE; Start 03/02/17 at 12:30 Glucose (Glutose) 15 gm Q15M PRN BUCCAL DECREASED GLUCOSE; Start 03/02/17 at 12 :30 Diagnostic Test (Pha) 1 ea 1 ea Q4 XX Last administered on 03/08/17 08:20; Admin Dose 1 EA; Start 03/04/17 at 09:00 Caspofungin 35 mg/ Sodium Chloride 250 ml @ 250 mls/hr Q24H IVPB Last administered on 03/07/17 15:47; Admin Dose 250 MLS/HR; Start 03/04/17 at 15:00 Total Parenteral Nutrition (Tpn) 1,000 ml @ 40 mls/hr Q24H IV Last administered on 03/07/17 21:55; Admin Dose 40 MLS/HR; Start 03/06/17 at 20:00 Sodium Hypochlorite (Dakin'S (1/4 Strength)) 1 applic DAILY IRR Last administered on 03/08/17 08:19; Admin Dose 1 APPLIC; Start 03/07/17 at 09:00 Morphine Sulfate (morphine) 2 mg Q4H PRN IV PAIN LEVEL 7-10 Last administered on 03/07/17 12:25; Admin Dose 2 MG; Start 03/07/17 at 10:00 AMBER NUR MD Mar 08, 2017 14:33
[2017-03-08] MEDS: CASPOFUNGIN 35 MG in SOD CHLORIDE 0.9% 250 ML IVPB SCH (14:55)
[2017-03-08] MEDS: TPN 1,000 ML IV SCH (20:20)
[2017-03-09] VITALS (105 sets, daily range): BP systolic 83–125; BP diastolic 45–85; PULSE 74–96; RESP 11–29
[2017-03-09] MEDS: ALBUTEROL 18 GM INHALER INH SCH ×4 (00:52→23:16)
[2017-03-09] MEDS: IPRATROPIUM (HFA) 12.9 GM INHALER INH SCH ×4 (00:52→23:16)
[2017-03-09] MEDS: ACCU-CHEK XX SCH ×6 (01:06→21:22)
[2017-03-09] MEDS: VANCOMYCIN 750 MG in DEXTROSE 5% 150 ML IVPB SCH (01:12)
[2017-03-09 05:41] LABS: INR 1.84; PROTIME 21.4 Sec (12.2-14.2); PT RATIO 1.7
[2017-03-09 05:42] LABS: PARTIAL THROMBOPLASTIN TIME 48.2 Sec (25.0-35.0)
[2017-03-09] MEDS: PANTOPRAZOLE 40 MG INJ IV SCH (05:49)
[2017-03-09] MEDS: DEXTROSE 5%-0.9% NACL 1,000 ML IV SCH ×2 (05:50→19:00)
[2017-03-09 06:04] LABS: ALBUMIN 1.6 g/dl (3.3-4.9); ALBUMIN/GLOBULIN RATIO 0.43; BILIRUBIN,DIRECT 4.9 mg/dl (0.00-0.20); BILIRUBIN,INDIRECT 1.3 mg/dl (0-1.1); BILIRUBIN,TOTAL 6.2 mg/dl (0.2-1.3); CALCIUM 8.8 mg/dl (8.4-10.2); CREATININE 0.81 mg/dl (0.44-1.00); TOTAL PROTEIN 5.3 g/dl (6.1-8.1)
[2017-03-09 07:01] LABS: AADO2 Arterial 103.3 mmHg (7.0-24.0); Allen Test ACCEPTAB; Arterial Base Excess -4.7 mmol/L (-3.0-3); Arterial COHb 0.3 % (0.0-3.0); Arterial Fraction of Oxyhgb 93.6 % (93.0-99.0); Arterial MetHb 0.5 % (0.0-1.5); Arterial Total Hemglobin 10.3 g/dl (12.0-18.0); MODE VENT - AC
[2017-03-09 07:09] LABS: ABNORMAL IP MESSAGE 1; BASOPHIL # 0.1 10^3/ul (0.0-0.1); BASOPHILS % 0.3 % (0.0-2.0); EOSINOPHILS # 0.3 10^3/ul (0.0-0.5); EOSINOPHILS % 1.8 % (0.0-7.0); HEMOGLOBIN 9.8 g/dl (12.0-16.0); LYMPHOCYTES # 2.7 10^3/ul (0.8-2.9); LYMPHOCYTES % 17.8 % (15.0-51.0); MEAN CORPUSCULAR HEMOGLOBIN 27.7 pg (29.0-33.0); MEAN CORPUSCULAR HGB CONC 31.9 g/dl (32.0-37.0); MEAN CORPUSCULAR VOLUME 86.7 fl (82.0-101.0); MONOCYTE # 0.8 10^3/ul (0.3-0.9); MONOCYTES % 5.1 % (0.0-11.0); NEUTROPHIL # 11.3 10^3/ul (1.6-7.5); NEUTROPHILS % 73.9 % (39.0-77.0); NUCLEATED RED BLOOD CELLS% 0.1 /100WBC (0.0-0.0); PLATELET COUNT 78 10^3/UL (140-415); RED BLOOD COUNT 3.54 10^6/ul (4.20-5.40); RED CELL DISTRIBUTION WIDTH 19.2 % (11.5-14.5); WHITE BLOOD COUNT 15.3 10^3/ul (4.8-10.8)
[2017-03-09 07:12] LABS: HEMATOCRIT 30.7 % (37.0-47.0); MEAN PLATELET VOLUME 14.2 fl (7.4-10.4); POSITIVE DIFF @See below
[2017-03-09] MEDS: DIPHENHYDRAMINE 50 MG INJ IV PRN (07:50)
--- NOTE | 2017-03-09 08:03 | RADRPT ---
PROCEDURE: XR Chest 1 view. CLINICAL INDICATION: Shortness of breath. TECHNIQUE: AP views of the chest were obtained. COMPARISON: March 05, 2017 FINDINGS: The heart is large. Calcified atherosclerosis is noted in the aorta. Endotracheal and nasogastric t ubes are stable and appear in grossly appropriate location. Central pulmonary vascular congestion a nd interstitial prominence is seen in both lungs. Bilateral lower lung infiltrates, combined with s mall to moderate pleural effusions are seen. Osseous structures are intact. IMPRESSION: Cardiomegaly with calcified atherosclerosis in the aorta. Central pulmonary vascular congestion and interstitial prominence is seen in both lungs. Stable bilateral lower lung infiltrates, combined with small to moderate pleural effusions. RPTAT: AA .Asim Smith MD, Date Time Electronically viewed and signed by .Asim Smith MD, on 03/09/2017 08:02 .P/
[2017-03-09] MEDS: [UNRECOGNIZED DRUG - REMARK] XX SCH (09:00)
[2017-03-09] MEDS: BALSAM PERU/CASTOR OIL 60 GM TUBE TOP SCH (09:00)
[2017-03-09] MEDS: COLLAGENASE 30 GM TUBE TOP SCH (09:00)
[2017-03-09] MEDS: SODIUM HYPOCHLORITE 0.125% 473 ML BTL IRR SCH (09:00)
[2017-03-09] MEDS: MIDODRINE 5 MG TAB PO SCH ×3 (10:48→20:29)
[2017-03-09] MEDS: MIDAZOLAM (DRIP) 50 mg/50 mL 50 ML IV SCH (11:30)
[2017-03-09] MEDS ORDERED: ALBUMIN HUMAN 5% 250 ML IV ONE (12:00)
--- NOTE | 2017-03-09 12:01 | CONS ---
Date/Time of Note Date/Time of Note DATE: 03/09/17 TIME: 11:59 Consult Date/Type/Reason Admit Date/Time Feb 11, 2017 at 05:28 Initial Consult Date 02/21/17 Type of Consultation: Pulm/CCM Ordering Provider: BONIFACIO COWART Subjective Continues vasopressors Remains somnolent Remains orally intubated on mechanical ventilation Persistent leukocytosis Objective Vital Signs Date Time Temp Pulse Resp B/P Pulse Ox O2 Delivery O2 Flow Rate FiO2 03/09/17 11:13 89 23 96 30 03/09/17 10:45 93/73 03/09/17 10:00 Mechanical Ventilator 03/09/17 08:00 98.0 Intake and Output 03/08/17 03/08/17 03/09/17 14:59 22:59 06:59 Intake Total 311.24 ml 706.23 ml Output Total 310 ml 240 ml 225 ml Balance -310 ml 71.24 ml 481.23 ml Exam PHYSICAL EXAMINATION GENERAL: Elderly lady orally intubated on mechanical ventilation VITAL SIGNS: see below. HEENT: Pupils equal, round, and reactive to light. CARDIAC: S1, S2, 1/6 systolic ejection murmur CHEST: Diminished air entry bilaterally. ABDOMEN: Mildly distended. Bowel sounds present no guarding or rebound EXTREMITIES: No cyanosis, clubbing edema +1 NEUROLOGIC: Generalized weakness Results/Medications Result Diagram: 03/09/17 0400 03/09/17 0400 Results 24 hrs Laboratory Tests Test 03/08/17 12:00 03/08/17 16:55 03/08/17 20:31 03/09/17 00:57 Prothrombin Time 21.2 H Prothrombin Time Ratio 1.7 INR International Normalized Ratio 1.82 Activated Partial Thromboplast Time 44.9 H Bedside Glucose 85 80 71 Test 03/09/17 04:00 03/09/17 04:29 03/09/17 05:00 03/09/17 08:39 White Blood Count 15.3 #H Red Blood Count 3.54 L Hemoglobin 9.8 L Hematocrit 30.7 L Mean Corpuscular Volume 86.7 Mean Corpuscular Hemoglobin 27.7 L Mean Corpuscular Hemoglobin Concent 31.9 L Red Cell Distribution Width 19.2 H Platelet Count 78 L Mean Platelet Volume 14.2 H Neutrophils % 73.9 Lymphocytes % 17.8 Monocytes % 5.1 Eosinophils % 1.8 Basophils % 0.3 Nucleated Red Blood Cells % 0.1 H Neutrophils # 11.3 H Lymphocytes # 2.7 Monocytes # 0.8 Eosinophils # 0.3 Basophils # 0.1 Nucleated Red Blood Cells # 0.0 Prothrombin Time 21.4 H Prothrombin Time Ratio 1.7 INR International Normalized Ratio 1.84 Activated Partial Thromboplast Time 48.2 H Sodium Level 140 Potassium Level 4.0 Chloride Level 110 Carbon Dioxide Level 20 L Anion Gap 14 Blood Urea Nitrogen 25 H Creatinine 0.81 Glucose Level 87 Lactic Acid Level 1.6 Calcium Level 8.8 Total Bilirubin 6.2 H Direct Bilirubin 4.90 H Indirect Bilirubin 1.3 H Aspartate Amino Transf (AST/SGOT) 60 H Alanine Aminotransferase (ALT/SGPT) 29 Alkaline Phosphatase 285 H Total Protein 5.3 L Albumin 1.6 L Globulin 3.70 H Albumin/Globulin Ratio 0.43 Bedside Glucose 89 Blood Gas Specimen Source Blood arterial Arterial Blood Date Drawn 03/09/2017 4:48:18 AM Arterial Blood pH (Temp corrected) 7.417 Arterial Blood pCO2 (Temp correct) 30.1 L Arterial Blood pO2 (Temp corrected) 75.2 L Arterial Blood HCO3 19.0 L Arterial Blood Base Excess -4.7 L Arterial Blood Oxygen Saturation 94.4 L Shreyas Test ACCEPTAB Arterial Blood Gas Puncture Site Right Radial Arterial Blood Carboxyhemoglobin 0.3 Arterial Blood Methemoglobin 0.5 Blood Gas A-a O2 Differential 103.3 H Oxyhemoglobin Percent 93.6 Total Hemoglobin 10.3 L Blood Gas Temperature 37.0 Blood Gas Respiration Rate 16.0 Blood Gas Actual Respiration Rate 30 Blood Gas Modality VENT - AC FiO2 30.0 Blood Gas Tidal Volume 450.0 Blood Gas Low PEEP Setting 5.0 Blood Gas Notified Whom RTR Blood Gas Notified Time 03/09/2017 5:22:32 AM Lab Scanned Report BLOOD TRANSFUSION Test 03/09/17 10:44 03/09/17 10:45 Bedside Glucose 69 L 81 Medications Current Medications Ondansetron HCl (Zofran Inj) 4 mg Q6H PRN IV NAUSEA AND/OR VOMITING Last administered on 02/13/17t 00:36; Admin Dose 4 MG; Start 02/11/17 at 10:00 Acetaminophen (Tylenol Tab) 650 mg Q6H PRN PO PAIN LEVEL 1-3 OR FEVER Last administered on 02/25/17 19:51; Admin Dose 650 MG; Start 02/11/17 at 10:00 Docusate Sodium (Colace) 100 mg Q12H PRN PO CONSTIPATION; Start 02/11/17 at 10: 00 Bisacodyl (Dulcolax Supp) 10 mg DAILY PRN [place] CONSTIPATION; Start 02/11/17 at 10 :00 Miscellaneous Information (Pending Santyl Order For Wound Care) This patient prado... PRN PRN XX WOUND CARE; Start 02/11/17 at 19:00 Collagenase (Santyl) 1 applic DAILY TOP Last administered on 03/09/17 09:00; Admin Dose 1 APPLIC; Start 02/12/17 at 13:30 Diphenhydramine HCl (Benadryl) 25 mg Q6H PRN IV ITCHING Last administered on 07:50; Admin Dose 25 MG; Start 02/12/17 at 14:00 Alprazolam (Xanax) 0.25 mg Q12H PRN PO ANXIETY Last administered on 03/07/17 08 :10; Admin Dose 0.25 MG; Start 02/19/17 at 14:00 Pantoprazole (Protonix Iv) 40 mg DAILY@06 IV Last administered on 03/09/17 05: 49; Admin Dose 40 MG; Start 02/23/17 at 06:00 Midodrine (Proamatine) 5 mg TID PO Last administered on 03/09/17 10:48; Admin Dose 5 MG; Start 02/23/17 at 13:30 Lorazepam (Ativan) 0.5 mg Q8H PRN IV AGITATION/ANXIETY Last administered on 03/08 05:03; Admin Dose 0.5 MG; Start 02/23/17 at 13:30 Miscellaneous Information DAILY XX Last administered on 03/09/17 09:00; Admin Dose 1 EA; Start 02/25/17 at 09:00 Midazolam HCl 50 ml @ 1 mls/hr TITRATE IV Last administered on 02/25/17 22:54 ; Admin Dose 2 MLS/HR; Start 02/25/17 at 10:00 Fentanyl 100 ml @ 2.5 mls/hr TITRATE IV Last administered on 02/25/17 10:43; Admin Dose 2.5 MLS/HR; Start 02/25/17 at 10:00 Norepinephrine 32 mg/Dextrose 500 ml @ 0 mls/hr TITRATE IV Last administered on 03/09/17 04:52; Admin Dose 3.75 MLS/HR; Start 02/28/17 at 11:30 Phenylephrine HCl 80 mg/Dextrose 500 ml @ 0 mls/hr TITRATE IV Last administered on 02/28/17 14:18; Admin Dose 7.5 MLS/HR; Start 02/28/17 at 11:30 Vancomycin HCl 750 mg/Dextrose/ Water 150 ml @ 75 mls/hr Q48H IVPB Last administered on 03/09/17 01:12; Admin Dose 75 MLS/HR; Start 03/03/17 at 01:00 Dextrose/Sodium Chloride (D5-NS) 1,000 ml @ 35 mls/hr Q24H IV Last administered on 03/07/17 21:49; Admin Dose 35 MLS/HR; Start 03/02/17 at 12:30 Miscellaneous Information 1 ea NOTE XX ; Start 03/02/17 at 12:30 Glucose (Glutose) 15 gm Q15M PRN PO DECREASED GLUCOSE; Start 03/02/17 at 12:30 Glucose (Glutose) 22.5 gm Q15M PRN PO DECREASED GLUCOSE; Start 03/02/17 at 12: 30 Dextrose (D50w Syringe) 25 ml Q15M PRN IV DECREASED GLUCOSE Last administered on 03/02/17 12:18; Admin Dose 25 ML; Start 03/02/17 at 12:30 Dextrose (D50w Syringe) 50 ml Q15M PRN IV DECREASED GLUCOSE; Start 03/02/17 at 12:30 Glucagon (Glucagen) 1 mg Q15M PRN IM DECREASED GLUCOSE; Start 03/02/17 at 12:30 Glucose (Glutose) 15 gm Q15M PRN BUCCAL DECREASED GLUCOSE; Start 03/02/17 at 12 :30 Diagnostic Test (Pha) 1 ea 1 ea Q4 XX Last administered on 03/09/17 09:00; Admin Dose 1 EA; Start 03/04/17 at 09:00 Caspofungin 35 mg/ Sodium Chloride 250 ml @ 250 mls/hr Q24H IVPB Last administered on 03/08/17 14:55; Admin Dose 250 MLS/HR; Start 03/04/17 at 15:00 Total Parenteral Nutrition (Tpn) 1,000 ml @ 40 mls/hr Q24H IV Last administered on 03/08/17 20:20; Admin Dose 40 MLS/HR; Start 03/06/17 at 20:00 Sodium Hypochlorite (Dakin'S (1/4 Strength)) 1 applic DAILY IRR Last administered on 03/09/17 09:00; Admin Dose 1 APPLIC; Start 03/07/17 at 09:00 Morphine Sulfate 2 mg 2 mg Q4H PRN IV PAIN LEVEL 7-10 Last administered on 12:25; Admin Dose 2 MG; Start 03/07/17 at 10:00 Albumin Human 250 ml @ 250 mls/hr ONCE ONCE IV ; Start 03/09/17 at 12:00; Stop 03/09/17 at 12:59 Assessment/Plan Chief Complaint/Hosp Course Additional Assessment/Plan IMP: 1. Vent Dependent Resp Failure 2. Fungemia 3. Pancreatitis 4. AMS/Encephalopathy 5. Anemia RECS: 1. Vent support 2 continue broad-spectrum antibiotics 3. Palliative Care consult 4. Anti-fungals per ID 5. Very poor prognosis. 35 min cc time Problems: SLAVA MCBRIDE MD, [facility] Mar 09, 2017 12:00
--- NOTE | 2017-03-09 12:41 | PN ---
Date/Time of Note Date/Time of Note DATE: 03/09/17 TIME: 12:08 Assessment/Plan VTE Prophylaxis VTE Prophylaxis Intervention: SCD's Lines/Catheters IV Catheter Type (from Nrs): Central Line Central line still needed: Yes (IV access, TPN) Urinary Cath still in place: Yes Reason Cath still needed: other (indicate) (Monitor urine output, status post acute kidney injury) Assessment/Plan Assessment/Plan 86 yo female with: 1. Acute Respiratory failure, in setting of pleural effusions, atelectasis, severe anemia and Norbert glabrata fungemia. Poor overall clinical status. Patient in ICU on mechanical ventilation due to deteriorated respiratory status. Currently improved FiO2 down to 30%, and pressor x1 but prognosis still fair at best if not poor. CXR mostly unchanged with pulmonary vascular congestion, small to moderate pleural effusions even s/p thoracentesis 02/20 with -300 cc and another right thoracentesis 02/23 with removal of less than 100 cc, Continue Vancomycin, Meropenem and Cancidas. Continue to monitor, pulmonary following. 2. Sepsis and Septic shock, from Norbert glabrata fungemia and septicemia . She does have a risk factors but this is the first time her blood cultures are growing yeast, she has been on Diflucan throughout her admission and at discharge from the outside hospital. Patient has been now switched to Cancidas as of last week. PICC line finally removed 03/05 with tip sent for culture, patient has a central line currently. Repeat blood cx pending. Hopefully in the next 2-3 days if blood cultures remain negative, will see if patient can have a PICC line replaced as likely she will need TPN resumed. Repeat blood cultures 02/28 with 1/2 blood cultures still positive with norbert glabrata, it is unclear if it is culture from the PICC line or peripheral. Repeat blood cultures again 03/02 growing Norbert Glabrata Repeat blood cx today. Continue Delfin, Dr. Murphy from infectious diseases following. Patient is currently intubated, still responsive on low dose Versed. TPN resumed after discussion with infectious disease, but may need to back off again.. On 1 pressor, Levophed. 3. S/p Severe pancreatitis with pseudocyst, back on TPN and No tube feeding per GI. CAT scan of the abdomen and pelvis has been compared to the one done at [facility] approximately 3 weeks ago, cholecystostomy tube has been removed however there is concern as the patient has a new fluid collection in addition of the previous pseudocyst also previous pseudocyst seems to have increased in size and there is concern for possible infection. We were planing for drainage of 2nd cyst since admission, but INR at 1.4 and patient clinically declined further now intubated and on 1 pressor with ongoing sepsis. Now even higher INR of 1.8 Per Surgery note couple of weeks ago, ? bleeding in pseudocyst but patient was not stable to get bleeding scan due to fact she was on BiPAP Continue Meropenem, Vancomycin and Cancidas. Follow-up GI recs today. 4. Acute on chronic anemia status post blood product transfusion at least twice during this admission, Hb stable today but platelets down to 70's again. DIC panel and repeat CBC peripherally pending. Bleeding scan was not done due to respiratory distress and needs for continuous BiPAP, she is now intubated and improving, is still needed will discuss with GI. No signs of acute bleeding so far however patient does have positive fecal occult blood. Appreciate GI consult, patient and her son declined EGD prior. Appreciate recommendations of Dr Hannah, may still needs CT guided drainage of 2nd pseudocyst by IR, however patient now with hemodynamic instability and intubated, likely also coagulopathic from a septic state, not a candidate for IR procedure yet. 5. Hypotension/septic shock Based on records patient has been actually put on midodrine 5 mg p.o. tid due to ongoing hypotension even at discharge from [facility] [place], Now the patient intubated, and septic with candidemia with Norbert glabrata, continue Levophed for blood pressure support, we have been able to titrate down as patient improved a little but still critical. Responding to albumin and IV fluids of note she still getting Midodrine per OGT Continue current antibiotics, appreciate infectious disease assistance Prognosis fair and still guarded but some improvement have been seen last week , not so much currently. 6. Acute kidney injury, in setting of septic shock and ongoing candidemia. Urine output picked up yesterday and renal function has improved while getting to daily boluses of albumin x few days and on IV fluids Continue D5NS and also repeating albumin bolus today. Anasarca is noted that the patient needs intravascular volume repletion with IV fluids and occasional albumin boluses to try to preserve her renal function as much as possible Norbert glabrata positive urine culture last week, Elder catheter has been changed and repeating Urine cx per ID. 7. Hyponatremia, Nutrition: Resolved, No tube feeding per GI so TPN resumed x 3 days through new central line in place. Appreciate nephrology assistance from Dr. Partida 8. Sinus Tachycardia: Per report from [facility] patient has sinus tachycardia. Resolved as patient in less distress currently after intubation and sedation. 9. Venous thromboembolism with episode of DVT, status post IVC filter. Repeat Doppler negative for DVT 10. Mild coagulopathy: PTT wnl, Vitamin K and FFP as needed for INR 1.8 but to be noted patient with VTE, s/p IVC filter. Current coagulopathy likely related to DIC. Recheck DIC panel today. 11. Hyperbilirubinemia, primarily direct, also slight elevation of alkaline phosphatase, concerns for obstructive process/biliary stent Dr Hill will discuss stent change with Son. Rechecking DIC panel Liver ultrasound showing pancreatic pseudocyst, GI following. Prophylaxis: Protonix for GI prophylaxis, SCDs and status post IVC filter for DVT prophylaxis Disposition: ICU now, intubated on mechanical ventilation , attempted repeat thoracentesis right pleural effusion with very minimal output. Now with fungemia Patient's prognosis is slightly better today, she is much more awake, repeat blood cultures have been negative so far, PICC line has been removed with a central line placed 03/05 finally. The DPOA, Jesus Muller, last Thursday, seemed to be more receptive to medical recommendations, he was able to even repeat information that is given to him showing that he was understanding information given. Hopefully going forward, the relationship between the DPOA and the treatment team will be less tense. Full code. Subjective 24 Hr Interval Summary Free Text/Dictation Patient now on low-dose Versed, vital signs more stable but unable to get off Levophed and still on mechanical ventilation, minimal settings. Per pulmonary not ready to extubate even if the son is insisting to do so. Less jaundiced today. White blood cell count elevated today, hemoglobin stable but the platelet count decreased. We will repeat blood cultures today, all blood cultures so far growing Norbert glabrata but this was prior to old PICC line removal. Appreciate recommendations from Dr. Hill. Exam/Review of Systems Vital Signs Vitals Vital Signs Date Time Temp Pulse Resp B/P Pulse Ox O2 Delivery O2 Flow Rate FiO2 03/09/17 11:13 89 23 96 30 03/09/17 10:45 93/73 03/09/17 10:00 Mechanical Ventilator 03/09/17 08:00 98.0 Intake and Output 03/08/17 03/08/17 03/09/17 15:00 23:00 07:00 Intake Total 389.05 ml 628.42 ml Output Total 290 ml 230 ml 235 ml Balance -290 ml 159.05 ml 393.42 ml Exam Constitutional: frail, other (More awake requiring minimal sedation now) Respiratory: diminished breath sounds (Basis bilateral), other (On mechanical ventilation, FiO2 of 30%) Cardiovascular: nl pulses, regular rate and rhythm Gastrointestinal: non-tender, soft Musculoskeletal: swelling (With anasarca upper extremities, still with lower extremities swelling) Extremities: edema (Less anasarca) Neurological: HYDRAULIC MINER II-XII intact, lethargic, other (Lightly sedated) Results Result Diagram: 03/09/17 04003/09/17 0400 Results 24 hrs Laboratory Tests Test 03/08/17 16:55 03/08/17 20:31 03/09/17 00:57 03/09/17 04:00 Bedside Glucose 85 80 71 White Blood Count 15.3 #H Red Blood Count 3.54 L Hemoglobin 9.8 L Hematocrit 30.7 L Mean Corpuscular Volume 86.7 Mean Corpuscular Hemoglobin 27.7 L Mean Corpuscular Hemoglobin Concent 31.9 L Red Cell Distribution Width 19.2 H Platelet Count 78 L Mean Platelet Volume 14.2 H Neutrophils % 73.9 Lymphocytes % 17.8 Monocytes % 5.1 Eosinophils % 1.8 Basophils % 0.3 Nucleated Red Blood Cells % 0.1 H Neutrophils # 11.3 H Lymphocytes # 2.7 Monocytes # 0.8 Eosinophils # 0.3 Basophils # 0.1 Nucleated Red Blood Cells # 0.0 Prothrombin Time 21.4 H Prothrombin Time Ratio 1.7 INR International Normalized Ratio 1.84 Activated Partial Thromboplast Time 48.2 H Sodium Level 140 Potassium Level 4.0 Chloride Level 110 Carbon Dioxide Level 20 L Anion Gap 14 Blood Urea Nitrogen 25 H Creatinine 0.81 Glucose Level 87 Lactic Acid Level 1.6 Calcium Level 8.8 Total Bilirubin 6.2 H Direct Bilirubin 4.90 H Indirect Bilirubin 1.3 H Aspartate Amino Transf (AST/SGOT) 60 H Alanine Aminotransferase (ALT/SGPT) 29 Alkaline Phosphatase 285 H Total Protein 5.3 L Albumin 1.6 L Globulin 3.70 H Albumin/Globulin Ratio 0.43 Test 03/09/17 04:29 03/09/17 05:00 03/09/17 08:39 03/09/17 10:44 Bedside Glucose 89 69 L Blood Gas Specimen Source Blood arterial Arterial Blood Date Drawn 03/09/2017 4:48:18 AM Arterial Blood pH (Temp corrected) 7.417 Arterial Blood pCO2 (Temp correct) 30.1 L Arterial Blood pO2 (Temp corrected) 75.2 L Arterial Blood HCO3 19.0 L Arterial Blood Base Excess -4.7 L Arterial Blood Oxygen Saturation 94.4 L Shreyas Test ACCEPTAB Arterial Blood Gas Puncture Site Right Radial Arterial Blood Carboxyhemoglobin 0.3 Arterial Blood Methemoglobin 0.5 Blood Gas A-a O2 Differential 103.3 H Oxyhemoglobin Percent 93.6 Total Hemoglobin 10.3 L Blood Gas Temperature 37.0 Blood Gas Respiration Rate 16.0 Blood Gas Actual Respiration Rate 30 Blood Gas Modality VENT - AC FiO2 30.0 Blood Gas Tidal Volume 450.0 Blood Gas Low PEEP Setting 5.0 Blood Gas Notified Whom RTR Blood Gas Notified Time 03/09/2017 5:22:32 AM Lab Scanned Report BLOOD TRANSFUSION Test 03/09/17 10:45 Bedside Glucose 81 Medications Medications Current Medications Ondansetron HCl (Zofran Inj) 4 mg Q6H PRN IV NAUSEA AND/OR VOMITING Last administered on 02/13/17 00:36; Admin Dose 4 MG; Start 02/11/17 at 10:00 Acetaminophen (Tylenol Tab) 650 mg Q6H PRN PO PAIN LEVEL 1-3 OR FEVER Last administered on 02/25/17 19:51; Admin Dose 650 MG; Start 02/11/17 at 10:00 Docusate Sodium (Colace) 100 mg Q12H PRN PO CONSTIPATION; Start 02/11/17 at 10: 00 Bisacodyl (Dulcolax Supp) 10 mg DAILY PRN [place] CONSTIPATION; Start 02/11/17 at 10 :00 Miscellaneous Information (Pending [facility] Order For Wound Care) This patient prado... PRN PRN XX WOUND CARE; Start 02/11/17 at 19:00 Collagenase (Santyl) 1 applic DAILY TOP Last administered on 03/09/17 09:00; Admin Dose 1 APPLIC; Start 02/12/17 at 13:30 Diphenhydramine HCl (Benadryl) 25 mg Q6H PRN IV ITCHING Last administered on 07:50; Admin Dose 25 MG; Start 02/12/17 at 14:00 Alprazolam (Xanax) 0.25 mg Q12H PRN PO ANXIETY Last administered on 03/07/17 08 :10; Admin Dose 0.25 MG; Start 02/19/17 at 14:00 Pantoprazole (Protonix Iv) 40 mg DAILY@06 IV Last administered on 03/09/17 05: 49; Admin Dose 40 MG; Start 02/23/17 at 06:00 Midodrine (Proamatine) 5 mg TID PO Last administered on 03/09/17 10:48; Admin Dose 5 MG; Start 02/23/17 at 13:30 Lorazepam (Ativan) 0.5 mg Q8H PRN IV AGITATION/ANXIETY Last administered on 03/08 05:03; Admin Dose 0.5 MG; Start 02/23/17 at 13:30 Miscellaneous Information DAILY XX Last administered on 03/09/17 09:00; Admin Dose 1 EA; Start 02/25/17 at 09:00 Midazolam HCl 50 ml @ 1 mls/hr TITRATE IV Last administered on 02/25/17 22:54 ; Admin Dose 2 MLS/HR; Start 02/25/17 at 10:00 Fentanyl 100 ml @ 2.5 mls/hr TITRATE IV Last administered on 02/25/17 10:43; Admin Dose 2.5 MLS/HR; Start 02/25/17 at 10:00 Norepinephrine 32 mg/Dextrose 500 ml @ 0 mls/hr TITRATE IV Last administered on 03/09/17 04:52; Admin Dose 3.75 MLS/HR; Start 02/28/17 at 11:30 Phenylephrine HCl 80 mg/Dextrose 500 ml @ 0 mls/hr TITRATE IV Last administered on 02/28/17 14:18; Admin Dose 7.5 MLS/HR; Start 02/28/17 at 11:30 Vancomycin HCl 750 mg/Dextrose/ Water 150 ml @ 75 mls/hr Q48H IVPB Last administered on 03/09/17 01:12; Admin Dose 75 MLS/HR; Start 03/03/17 at 01:00 Dextrose/Sodium Chloride (D5-NS) 1,000 ml @ 35 mls/hr Q24H IV Last administered on 03/07/17 21:49; Admin Dose 35 MLS/HR; Start 03/02/17 at 12:30 Miscellaneous Information 1 ea NOTE XX ; Start 03/02/17 at 12:30 Glucose (Glutose) 15 gm Q15M PRN PO DECREASED GLUCOSE; Start 03/02/17 at 12:30 Glucose (Glutose) 22.5 gm Q15M PRN PO DECREASED GLUCOSE; Start 03/02/17 at 12: 30 Dextrose (D50w Syringe) 25 ml Q15M PRN IV DECREASED GLUCOSE Last administered on 03/02/17 12:18; Admin Dose 25 ML; Start 03/02/17 at 12:30 Dextrose (D50w Syringe) 50 ml Q15M PRN IV DECREASED GLUCOSE; Start 03/02/17 at 12:30 Glucagon (Glucagen) 1 mg Q15M PRN IM DECREASED GLUCOSE; Start 03/02/17 at 12:30 Glucose (Glutose) 15 gm Q15M PRN BUCCAL DECREASED GLUCOSE; Start 03/02/17 at 12 :30 Diagnostic Test (Pha) 1 ea 1 ea Q4 XX Last administered on 03/09/17 09:00; Admin Dose 1 EA; Start 03/04/17 at 09:00 Caspofungin 35 mg/ Sodium Chloride 250 ml @ 250 mls/hr Q24H IVPB Last administered on 03/08/17 14:55; Admin Dose 250 MLS/HR; Start 03/04/17 at 15:00 Total Parenteral Nutrition (Tpn) 1,000 ml @ 40 mls/hr Q24H IV Last administered on 03/08/17 20:20; Admin Dose 40 MLS/HR; Start 03/06/17 at 20:00 Sodium Hypochlorite (Dakin'S (08/06 Strength)) 1 applic DAILY IRR Last administered on 03/09/17 09:00; Admin Dose 1 APPLIC; Start 03/07/17 at 09:00 Morphine Sulfate 2 mg 2 mg Q4H PRN IV PAIN LEVEL 7-10 Last administered on t 12:25; Admin Dose 2 MG; Start 03/07/17 at 10:00 Albumin Human 250 ml @ 250 mls/hr ONCE ONCE IV ; Start 03/09/17 at 12:00; Stop 03/09/17 at 12:59 Procedures Procedures PROCEDURE: XR Chest 1 view. CLINICAL INDICATION: Shortness of breath. TECHNIQUE: AP views of the chest were obtained. COMPARISON: March 05, 2017 FINDINGS: The heart is large. Calcified atherosclerosis is noted in the aorta. Endotracheal and nasogastric tubes are stable and appear in grossly appropriate location. Central pulmonary vascular congestion and interstitial prominence is seen in both lungs. Bilateral lower lung infiltrates, combined with small to moderate pleural effusions are seen. Osseous structures are intact. IMPRESSION: Cardiomegaly with calcified atherosclerosis in the aorta. Central pulmonary vascular congestion and interstitial prominence is seen in both lungs. Stable bilateral lower lung infiltrates, combined with small to moderate pleural effusions. RPTAT: AA .Asim Smith MD, MD Date Time Electronically viewed and signed by .Asim Smith MD, MD on 03/09/2017 08:02 BONIFACIO COWART Mar 09, 2017 12:18
[2017-03-09] MEDS ORDERED: PHYTONADIONE 10 MG in DEXTROSE 5% 50 ML IVPB ONE (14:30)
[2017-03-09] MEDS: CASPOFUNGIN 35 MG in SOD CHLORIDE 0.9% 250 ML IVPB SCH (14:53)
[2017-03-09 18:02] LABS: PLATELET COUNT 78 10^3/UL (140-415)
[2017-03-09 18:13] LABS: INR 1.94; PROTIME 22.3 Sec (12.2-14.2); PT RATIO 1.7
[2017-03-09 18:14] LABS: PARTIAL THROMBOPLASTIN TIME 49.1 Sec (25.0-35.0)
[2017-03-09 18:18] LABS: THROMBIN TIME 20.8 SEC (13.8-19.1)
[2017-03-09 18:31] LABS: ABNORMAL IP MESSAGE 1; HEMATOCRIT 27.6 % (37.0-47.0); HEMOGLOBIN 9.1 g/dl (12.0-16.0); MEAN CORPUSCULAR HEMOGLOBIN 27.4 pg (29.0-33.0); MEAN CORPUSCULAR VOLUME 83.1 fl (82.0-101.0); RED BLOOD COUNT 3.32 10^6/ul (4.20-5.40); RED CELL DISTRIBUTION WIDTH 19.1 % (11.5-14.5); WHITE BLOOD COUNT 14.4 10^3/ul (4.8-10.8)
[2017-03-09 18:40] LABS: D-DIMER > 10000.00 ng/ml (<460)
[2017-03-09 18:42] LABS: PLATELET COUNT 78 10^3/UL (140-415); POSITIVE DIFF @See below
[2017-03-09 20:05] LABS: EOSINOPHILS % (M) 4 % (0-7); GIANT THROMBO% (M) 6 % (0-0); MONOCYTES % (M) 4 % (0-11); PLATELET ESTIMATE DECREASED
[2017-03-09] MEDS: TPN 1,000 ML IV SCH (20:08)
--- NOTE | 2017-03-09 20:29 | PN ---
Date/Time of Note Date/Time of Note DATE: 03/09/17 TIME: 20:29 Assessment/Plan Lines/Catheters IV Catheter Type (from Nrsg): Central Line Elder in Place (from Nrsg): Yes Assessment/Plan Chief Complaint/Hosp Course Additional Assessment/Plan Respiratory failure Pancreatitis Infected PICC line Patient will be needing a central line I had a discussion with the son today He is in agreement to proceed with a central line Response complications alternative therapies explained to the patient's son All questions answered SP central line placement, site clean will continue supp care Problems: Subjective 24 Hr Interval Summary Constitutional: improved Pain Control: mild Exam/Review of Systems Vital Signs Vitals Vital Signs Date Time Temp Pulse Resp B/P Pulse Ox O2 Delivery O2 Flow Rate FiO2 03/09/17 19:30 91 98/63 99 03/09/17 17:53 23 30 03/09/17 16:00 98.4 03/09/17 14:00 Mechanical Ventilator Intake and Output 03/08/17 03/08/17 03/09/17 15:00 23:00 07:00 Intake Total 389.05 ml 628.42 ml Output Total 290 ml 230 ml 235 ml Balance -290 ml 159.05 ml 393.42 ml Exam Eyes: EOMI, nl conjunctiva, nl lids, nl sclera ENMT: mucosa pink and moist, nl external ears & nose, nl lips & teeth, nl nasal mucosa & septum Neck: non-tender, supple Respiratory: clear to auscultation, normal air movement Cardiovascular: nl pulses, regular rate and rhythm Results Result Diagram: 03/09/17 1710 03/09/17 0400 LUIZ SEQUEIRA MD Mar 09, 2017 20:29
[2017-03-09 20:31] LABS: FIBRIN SPLIT PRODUCT >10 and <40 ug/ml (<10)
--- NOTE | 2017-03-09 21:12 | CONS ---
Date/Time of Note Date/Time of Note DATE: 03/09/17 TIME: 21:08 Assessment/Plan Assessment/Plan Chief Complaint/Hosp Course ID PROGRESS NOTE TOTAL ABX DAY #12 => VANCO IV + Cancidas MERREM -> DC 03/08 24H INTERVAL SUMMARY * Alert, awake, responsive * WBC down to 14.4; PLT 78, no fevers * Repeat urine Cx post FC change is (-), repeat BCx post line change pending * MICRO: (+)Yeast UTI (+)Yeast BCx = Fungemia due to Infected PICC line + UTI * 02/25 BCx(+)Yeast; 02/28/17 BCx (+) Yeast; 03/02 BCx (-) GENERAL: Elderly lady on mechanical ventilation orally intubated. VITAL SIGNS: see below. HEENT: Unremarkable ETT-> secure to Vent CARDIAC: S1, S2, 1/6 systolic ejection murmur CHEST: Diminished air entry bilaterally. ABDOMEN: Mildly distended. Bowel sounds present no guarding or rebound EXTREMITIES: No cyanosis, clubbing edema +2 NEUROLOGIC: Generalized weakness ID ASSESSMENT 86 yo F with: 1. Sepsis w/Fevers >102.+ 02/24 &, leukocytosis, tachycardia => Disseminated Fungemia ->IMPROVING * Repeat BCx via new PICC 03/06 pending * BCx 02/25 (+) YEAST => Infx PICC line== PICC DC'd 03/06/17 * 02/25/17 YEAST UTI = FC changed 2. Acute hypoxic respiratory failure=> Intubated 02/24 in setting of sepsis 3. Severe pancreatitis with pseudocyst, currently on TPN. * Plan to drain pseudocyst #2 on hold due to sepsis, thrombocytopenia 4. Acute on chronic anemia status post blood product transfusion 5. Urinary retention 6. s/p VRE UTI 02/15/17 7. s/p acute kidney injury 8. Venous thromboembolism with episode of DVT, status post IVC filter. Repeat Doppler negative for DVT (+)MRSA Nares screen (+)MRSA Stool colonization (+)VRE Stool colonization INVASIVES: Left CVC 03/05/17, ETT, OGT ABX ALLERGY: PCN CURRENT ABX: #12 => VANCO IV + Cancidas MERREM -> DC 03/08 ID RECOMMENDATIONS Overall improved -- sepsis has stabilized after new line placed & PICC removed 1.ABX downgraded yesterday Merrem DC'd -- Continue Cancidas for fungemia + Vanco for (+)MRSA colonization 2. Repeat UA C&S, sputum for Temp >101.5 . Problems: Consultation Date/Type/Reason Admit Date/Time Feb 11, 2017 at 05:28 Initial Consult Date 02/21/17 Type of Consultation: ID Referring Provider: BONIFACIO COWART Exam/Review of Systems Vital Signs Vitals Vital Signs Date Time Temp Pulse Resp B/P Pulse Ox O2 Delivery O2 Flow Rate FiO2 03/09/17 20:00 30 03/09/17 19:30 91 98/63 99 03/09/17 17:53 23 03/09/17 16:00 98.4 03/09/17 14:00 Mechanical Ventilator Intake and Output 03/08/17 03/08/17 03/09/17 15:00 23:00 07:00 Intake Total 389.05 ml 628.42 ml Output Total 290 ml 230 ml 235 ml Balance -290 ml 159.05 ml 393.42 ml Results Result Diagram: 03/09/17 1710 03/09/17 0400 Results 24 hrs Laboratory Tests Test 03/09/17 00:57 03/09/17 04:00 03/09/17 04:29 03/09/17 05:00 Bedside Glucose 71 89 White Blood Count 15.3 #H Red Blood Count 3.54 L Hemoglobin 9.8 L Hematocrit 30.7 L Mean Corpuscular Volume 86.7 Mean Corpuscular Hemoglobin 27.7 L Mean Corpuscular Hemoglobin Concent 31.9 L Red Cell Distribution Width 19.2 H Platelet Count 78 L Mean Platelet Volume 14.2 H Neutrophils % 73.9 Lymphocytes % 17.8 Monocytes % 5.1 Eosinophils % 1.8 Basophils % 0.3 Nucleated Red Blood Cells % 0.1 H Neutrophils # 11.3 H Lymphocytes # 2.7 Monocytes # 0.8 Eosinophils # 0.3 Basophils # 0.1 Nucleated Red Blood Cells # 0.0 Prothrombin Time 21.4 H Prothrombin Time Ratio 1.7 INR International Normalized Ratio 1.84 Activated Partial Thromboplast Time 48.2 H Sodium Level 140 Potassium Level 4.0 Chloride Level 110 Carbon Dioxide Level 20 L Anion Gap 14 Blood Urea Nitrogen 25 H Creatinine 0.81 Glucose Level 87 Lactic Acid Level 1.6 Calcium Level 8.8 Total Bilirubin 6.2 H Direct Bilirubin 4.90 H Indirect Bilirubin 1.3 H Aspartate Amino Transf (AST/SGOT) 60 H Alanine Aminotransferase (ALT/SGPT) 29 Alkaline Phosphatase 285 H Total Protein 5.3 L Albumin 1.6 L Globulin 3.70 H Albumin/Globulin Ratio 0.43 Blood Gas Specimen Source Blood arterial Arterial Blood Date Drawn 03/09/2017 4:48:18 AM Arterial Blood pH (Temp corrected) 7.417 Arterial Blood pCO2 (Temp correct) 30.1 L Arterial Blood pO2 (Temp corrected) 75.2 L Arterial Blood HCO3 19.0 L Arterial Blood Base Excess -4.7 L Arterial Blood Oxygen Saturation 94.4 L Shreyas Test ACCEPTAB Arterial Blood Gas Puncture Site Right Radial Arterial Blood Carboxyhemoglobin 0.3 Arterial Blood Methemoglobin 0.5 Blood Gas A-a O2 Differential 103.3 H Oxyhemoglobin Percent 93.6 Total Hemoglobin 10.3 L Blood Gas Temperature 37.0 Blood Gas Respiration Rate 16.0 Blood Gas Actual Respiration Rate 30 Blood Gas Modality VENT - AC FiO2 30.0 Blood Gas Tidal Volume 450.0 Blood Gas Low PEEP Setting 5.0 Blood Gas Notified Whom RTR Blood Gas Notified Time 03/09/2017 5:22:32 AM Test 03/09/17 08:39 03/09/17 10:44 03/09/17 10:45 03/09/17 17:10 Lab Scanned Report BLOOD TRANSFUSION Bedside Glucose 69 L 81 White Blood Count 14.4 H Red Blood Count 3.32 L Hemoglobin 9.1 L Hematocrit 27.6 L Mean Corpuscular Volume 83.1 Mean Corpuscular Hemoglobin 27.4 L Mean Corpuscular Hemoglobin Concent 33.0 Red Cell Distribution Width 19.1 H Platelet Count 78 L Mean Platelet Volume Neutrophils % Segmented Neutrophils % (Manual) 87 H Lymphocytes % Lymphocytes % (Manual) 5 L Monocytes % Monocytes % (Manual) 4 Eosinophils % Eosinophils % (Manual) 4 Basophils % Nucleated Red Blood Cells % 0.0 Neutrophils # Absolute Lymphocytes (Manual) 0.7 L Lymphocytes # Monocytes # Absolute Monocytes (Manual) 0.5 Eosinophils # Basophils # Nucleated Red Blood Cells # Smudge Cells % 12 H Thrombocytosis 6 H Platelet Estimate DECREASED Prothrombin Time 22.3 H Prothrombin Time Ratio 1.7 INR International Normalized Ratio 1.94 Activated Partial Thromboplast Time 49.1 H Thrombin Time 20.8 H Fibrinogen 123.0 #L Plasma Fibrin Degradation Products >10 and <40 H D-Dimer > 96554.00 H Test 03/09/17 18:57 03/09/17 20:22 Bedside Glucose 85 99 Medications Medications Current Medications Ondansetron HCl (Zofran Inj) 4 mg Q6H PRN IV NAUSEA AND/OR VOMITING Last administered on 02/13/17 00:36; Admin Dose 4 MG; Start 02/11/17 at 10:00 Acetaminophen (Tylenol Tab) 650 mg Q6H PRN PO PAIN LEVEL 1-3 OR FEVER Last administered on 02/25/17 19:51; Admin Dose 650 MG; Start 02/11/17 at 10:00 Docusate Sodium (Colace) 100 mg Q12H PRN PO CONSTIPATION; Start 02/11/17 at 10: 00 Bisacodyl (Dulcolax Supp) 10 mg DAILY PRN ME CONSTIPATION; Start 02/11/17 at 10 :00 Miscellaneous Information (Pending Santyl Order For Wound Care) This patient prado... PRN PRN XX WOUND CARE; Start 02/11/17 at 19:00 Collagenase (Santyl) 1 applic DAILY TOP Last administered on 03/09/17 09:00; Admin Dose 1 APPLIC; Start 02/12/17 at 13:30 Diphenhydramine HCl (Benadryl) 25 mg Q6H PRN IV ITCHING Last administered on 07:50; Admin Dose 25 MG; Start 02/12/17 at 14:00 Alprazolam (Xanax) 0.25 mg Q12H PRN PO ANXIETY Last administered on 03/07/17 08 :10; Admin Dose 0.25 MG; Start 02/19/17 at 14:00 Pantoprazole (Protonix Iv) 40 mg DAILY@06 IV Last administered on 03/09/17 05: 49; Admin Dose 40 MG; Start 02/23/17 at 06:00 Midodrine (Proamatine) 5 mg TID PO Last administered on 03/09/17 20:29; Admin Dose 5 MG; Start 02/23/17 at 13:30 Lorazepam (Ativan) 0.5 mg Q8H PRN IV AGITATION/ANXIETY Last administered on 03/08 05:03; Admin Dose 0.5 MG; Start 02/23/17 at 13:30 Miscellaneous Information DAILY XX Last administered on 03/09/17 09:00; Admin Dose 1 EA; Start 02/25/17 at 09:00 Midazolam HCl 50 ml @ 1 mls/hr TITRATE IV Last administered on 03/09/17 11:30; Admin Dose 2 MLS/HR; Start 02/25/17 at 10:00 Fentanyl 100 ml @ 2.5 mls/hr TITRATE IV Last administered on 02/25/17 10:43; Admin Dose 2.5 MLS/HR; Start 02/25/17 at 10:00 Norepinephrine 32 mg/Dextrose 500 ml @ 0 mls/hr TITRATE IV Last administered on 03/09/17 04:52; Admin Dose 3.75 MLS/HR; Start 02/28/17 at 11:30 Phenylephrine HCl 80 mg/Dextrose 500 ml @ 0 mls/hr TITRATE IV Last administered on 02/28/17 14:18; Admin Dose 7.5 MLS/HR; Start 02/28/17 at 11:30 Vancomycin HCl 750 mg/Dextrose/ Water 150 ml @ 75 mls/hr Q48H IVPB Last administered on 03/09/17 01:12; Admin Dose 75 MLS/HR; Start 03/03/17 at 01:00 Dextrose/Sodium Chloride (D5-NS) 1,000 ml @ 35 mls/hr Q24H IV Last administered on 03/09/17 19:00; Admin Dose 35 MLS/HR; Start 03/02/17 at 12:30 Miscellaneous Information 1 ea NOTE XX ; Start 03/02/17 at 12:30 Glucose (Glutose) 15 gm Q15M PRN PO DECREASED GLUCOSE; Start 03/02/17 at 12:30 Glucose (Glutose) 22.5 gm Q15M PRN PO DECREASED GLUCOSE; Start 03/02/17 at 12: 30 Dextrose (D50w Syringe) 25 ml Q15M PRN IV DECREASED GLUCOSE Last administered on 03/02/17 12:18; Admin Dose 25 ML; Start 03/02/17 at 12:30 Dextrose (D50w Syringe) 50 ml Q15M PRN IV DECREASED GLUCOSE; Start 03/02/17 at 12:30 Glucagon (Glucagen) 1 mg Q15M PRN IM DECREASED GLUCOSE; Start 03/02/17 at 12:30 Glucose (Glutose) 15 gm Q15M PRN BUCCAL DECREASED GLUCOSE; Start 03/02/17 at 12 :30 Diagnostic Test (Pha) 1 ea 1 ea Q4 XX Last administered on 03/09/17 17:00; Admin Dose 1 EA; Start 03/04/17 at 09:00 Caspofungin 35 mg/ Sodium Chloride 250 ml @ 250 mls/hr Q24H IVPB Last administered on 03/09/17 14:53; Admin Dose 250 MLS/HR; Start 03/04/17 at 15:00 Total Parenteral Nutrition (Tpn) 1,000 ml @ 40 mls/hr Q24H IV Last administered on 03/09/17 20:08; Admin Dose 40 MLS/HR; Start 03/06/17 at 20:00 Sodium Hypochlorite (Dakin'S (1/4 Strength)) 1 applic DAILY IRR Last administered on 03/09/17 09:00; Admin Dose 1 APPLIC; Start 03/07/17 at 09:00 Morphine Sulfate (morphine) 2 mg Q4H PRN IV PAIN LEVEL 7-10 Last administered on 03/07/17 12:25; Admin Dose 2 MG; Start 03/07/17 at 10:00 DEBORA WILLOUGHBY NP Mar 09, 2017 21:12
[2017-03-10] VITALS (84 sets, daily range): BP systolic 68–169; BP diastolic 33–111; PULSE 71–97; RESP 19–28
[2017-03-10] MEDS: ACCU-CHEK XX SCH ×6 (01:00→20:18)
[2017-03-10 05:59] LABS: MAGNESIUM 1.9 mg/dl (1.7-2.5); PHOSPHORUS 3.8 mg/dl (2.5-4.9)
[2017-03-10] MEDS: PANTOPRAZOLE 40 MG INJ IV SCH (06:14)
[2017-03-10 06:30] LABS: ALBUMIN 1.7 g/dl (3.3-4.9); ALBUMIN/GLOBULIN RATIO 0.45; BILIRUBIN,DIRECT 5.2 mg/dl (0.00-0.20); BILIRUBIN,INDIRECT 1.5 mg/dl (0-1.1); BILIRUBIN,TOTAL 6.7 mg/dl (0.2-1.3); CALCIUM 9.1 mg/dl (8.4-10.2); CREATININE 0.86 mg/dl (0.44-1.00); POTASSIUM 4.3 mmol/L (3.5-5.1); TOTAL PROTEIN 5.4 g/dl (6.1-8.1)
[2017-03-10 07:43] LABS: ABNORMAL IP MESSAGE 1; BASOPHIL # 0.1 10^3/ul (0.0-0.1); BASOPHILS % 0.4 % (0.0-2.0); EOSINOPHILS # 0.5 10^3/ul (0.0-0.5); EOSINOPHILS % 3.3 % (0.0-7.0); HEMATOCRIT 31.2 % (37.0-47.0); HEMOGLOBIN 9.9 g/dl (12.0-16.0); LYMPHOCYTES # 3.1 10^3/ul (0.8-2.9); LYMPHOCYTES % 19.6 % (15.0-51.0); MEAN CORPUSCULAR HEMOGLOBIN 27.4 pg (29.0-33.0); MEAN CORPUSCULAR HGB CONC 31.7 g/dl (32.0-37.0); MEAN CORPUSCULAR VOLUME 86.4 fl (82.0-101.0); MONOCYTE # 0.8 10^3/ul (0.3-0.9); NEUTROPHIL # 11.1 10^3/ul (1.6-7.5); NEUTROPHILS % 70.7 % (39.0-77.0); NUCLEATED RED BLOOD CELLS # 0.1 10^3/ul (0.0-0.0); NUCLEATED RED BLOOD CELLS% 0.3 /100WBC (0.0-0.0); PLATELET COUNT 70 10^3/UL (140-415); RED BLOOD COUNT 3.61 10^6/ul (4.20-5.40); RED CELL DISTRIBUTION WIDTH 19.5 % (11.5-14.5); WHITE BLOOD COUNT 15.6 10^3/ul (4.8-10.8)
[2017-03-10] MEDS: ALBUTEROL 18 GM INHALER INH SCH ×2 (07:44→17:07)
[2017-03-10] MEDS: IPRATROPIUM (HFA) 12.9 GM INHALER INH SCH ×2 (07:44→17:07)
[2017-03-10 07:47] LABS: POSITIVE DIFF @See below
[2017-03-10] MEDS: ALPRAZOLAM 0.25 MG TAB PO PRN (07:58)
[2017-03-10] MEDS: MIDODRINE 5 MG TAB PO SCH ×3 (07:59→20:18)
[2017-03-10] MEDS: SODIUM HYPOCHLORITE 0.125% 473 ML BTL IRR SCH (07:59)
[2017-03-10] MEDS: BALSAM PERU/CASTOR OIL 60 GM TUBE TOP SCH (08:00)
[2017-03-10] MEDS: COLLAGENASE 30 GM TUBE TOP SCH (08:00)
[2017-03-10] MEDS: [UNRECOGNIZED DRUG - REMARK] XX SCH (08:00)
--- NOTE | 2017-03-10 08:45 | RADRPT ---
PROCEDURE: XR Chest 1 view. CLINICAL INDICATION: Shortness of breath TECHNIQUE: AP views of the chest was obtained. COMPARISON: Yesterday FINDINGS: The heart is large. Calcified atherosclerosis is noted in the aorta. Endotracheal and nasogastric t ubes are stable and appear in appropriate location. Central pulmonary vascular congestion is unchan ged. Bilateral lower lung infiltrates, combined small pleural effusions are stable, given differenc es in technique. Left-sided central line is grossly stable. The osseous structures are unchanged. IMPRESSION: Cardiomegaly with calcified atherosclerosis in the aorta. Stable central pulmonary vascular congestion and mild interstitial prominence in both lungs. Stable bilateral lower lung infiltrates, combined with small pleural effusions. RPTAT: AA .Asim Smith MD, MD Date Time Electronically viewed and signed by .Asim Smith MD, on 03/10/2017 08:45 .P/
--- NOTE | 2017-03-10 09:37 | PN ---
Date/Time of Note Date/Time of Note DATE: 03/10/17 TIME: 09:03 Assessment/Plan VTE Prophylaxis VTE Prophylaxis Intervention: SCD's Lines/Catheters IV Catheter Type (from Nrs): Central Line Central line still needed: Yes (for IV access) Urinary Cath still in place: Yes Reason Cath still needed: urinary retention, other (indicate) Assessment/Plan Assessment/Plan 86 yo female with: 1. Acute Respiratory failure, in setting of pleural effusions, atelectasis, severe anemia and Norbert glabrata fungemia. Poor overall clinical status. Patient in ICU on mechanical ventilation due to deteriorated respiratory status. Currently on FiO2 down to 30%, and pressor x1, Levo down to 8 mcg/min but prognosis still fair at best if not poor. CXR mostly unchanged with pulmonary vascular congestion, small to moderate pleural effusions even s/p thoracentesis 02/20 with -300 cc and another right thoracentesis 02/23 with removal of less than 100 cc, Continue Vancomycin and Cancidas. Off Meropenem as of 03/08 per ID Continue to monitor, pulmonary following. 2. Sepsis and Septic shock, from Norbert glabrata fungemia and septicemia . She does have a risk factors but this is the first time her blood cultures are growing yeast, she has been on Diflucan throughout her admission and at discharge from the outside hospital. Patient has been now switched to Cancidas as of last week. PICC line finally removed 03/05 with tip sent for culture, patient has a central line currently. Repeat blood cx pending. Hopefully in the next 2-3 days if blood cultures remain negative, will see if patient can have a PICC line replaced as likely she will need TPN resumed. Repeat blood cultures 02/28 with 1/2 blood cultures still positive with norbert glabrata, it is unclear if it is culture from the PICC line or peripheral. Repeat blood cultures again 03/02 growing Norbert Glabrata Repeat blood cx 03/06 and 03/08 pending. Continue Cancidas and Dr. Jeffrey Teague from infectious diseases following. Patient is currently intubated, still responsive off Versed for at least 24 hours. TPN resumed after discussion with infectious disease, but may need to back off again.. On 1 pressor, Levophed @ 8 mcg/min. 3. S/p Severe pancreatitis with pseudocyst, back on TPN and No tube feeding per GI. Now with also concerns for biliary stent obstruction. Dr Hill following, discussed this AM. CAT scan of the abdomen and pelvis has been compared to the one done at [facility] approximately 3 weeks ago, cholecystostomy tube has been removed however there is concern as the patient has a new fluid collection in addition of the previous pseudocyst also previous pseudocyst seems to have increased in size and there is concern for possible infection. We were planing for drainage of 2nd cyst since admission, but INR at 1.4 and patient clinically declined further now intubated and on 1 pressor with ongoing sepsis. Now even higher INR of 1.8 despite Vit K given, likely in DIC Per Surgery note couple of weeks ago, ? bleeding in pseudocyst but patient was not stable to get bleeding scan due to fact she was on BiPAP Continue Vancomycin and Cancidas. Follow-up GI recs today. 4. Acute on chronic anemia status post blood product transfusion at least twice during this admission, Hb stable today but platelets down to 70's again. DIC panel . Bleeding scan was not done due to respiratory distress and needs for continuous BiPAP, she is now intubated and improving, is still needed will discuss with GI. No signs of acute bleeding so far however patient does have positive fecal occult blood. Appreciate GI consult, patient and her son declined EGD prior. Appreciate recommendations of Dr Hannah, may still needs CT guided drainage of 2nd pseudocyst by IR, however patient now with hemodynamic instability and intubated, likely also coagulopathic from a septic state/DIC not a candidate for IR procedure yet. 5. Hypotension/septic shock Based on records patient has been actually put on midodrine 5 mg p.o. tid due to ongoing hypotension even at discharge from [facility], Now the patient intubated, and septic with candidemia with Norbert glabrata, continue Levophed for blood pressure support, we have been able to titrate down as patient improved a little but still critical. Responding to albumin and IV fluids of note she still getting Midodrine per OGT Continue current antibiotics per ID management. Check Lactic acid Prognosis fair and still guarded but some improvement have been seen last week, not so much since then. 6. Acute kidney injury, in setting of septic shock and ongoing candidemia. Urine output picked up some and renal function has improved while getting to daily boluses of albumin x few days and on IV fluids Continue D5NS and also repeating albumin bolus today. Anasarca is noted that the patient needs intravascular volume repletion with IV fluids and occasional albumin boluses to try to preserve her renal function as much as possible Norbert glabrata positive urine culture last week, Elder catheter has been changed and repeating Urine cx NGTD so far. 7. Hyponatremia, Nutrition: Resolved, No tube feeding per GI so TPN resumed x 4 days through new central line in place. Appreciate nephrology assistance from Dr. Partida 8. Sinus Tachycardia: Per report from [facility] patient has sinus tachycardia. Resolved as patient in less distress currently after intubation and sedation. 9. Venous thromboembolism with episode of DVT, status post IVC filter. Repeat Doppler negative for DVT 10. Mild coagulopathy: PTT wnl, Vitamin K and FFP as needed for INR 1.8 but to be noted patient with VTE, s/p IVC filter. Current coagulopathy likely related to DIC. Recheck DIC panel today. 11. Hyperbilirubinemia, primarily direct, also slight elevation of alkaline phosphatase, concerns for obstructive process/biliary stent Dr Hill will discuss stent change with Son. Liver ultrasound showing pancreatic pseudocyst, GI following and will re- address with Surgery Prophylaxis: Protonix for GI prophylaxis, SCDs and status post IVC filter for DVT prophylaxis Disposition: ICU now, intubated on mechanical ventilation , attempted repeat thoracentesis right pleural effusion with very minimal output. Now with fungemia Patient's prognosis is slightly better today, she is much more awake, repeat blood cultures have been negative so far, PICC line has been removed with a central line placed 03/05 finally. The DPOA, Jesus Muller, last Thursday, seemed to be more receptive to medical recommendations, he was able to even repeat information that is given to him showing that he was understanding information given. We will meet again with Dr Treviño present if possible Hopefully going forward, the relationship between the DPOA and the treatment team will be less tense. Full code. Subjective 24 Hr Interval Summary Free Text/Dictation Patient clinical status fairly unchanged, still on Levophed at 8 mcg/min, appreciate infectious disease antibiotic adjustments, patient still on ventilator with FiO2 of 30%. She is off of all sedations. There is concern regarding her biliary stent being obstructed and needs to be changed, I had a discussion with Dr. Hill this morning, he will discuss with the son and he will be notified again but he has refused any intervention prior, Also when he comes to the son and DPOA, I have requested for risk management to be reinvolved or stay involved, as he has had a duplicitous attitude towards me and has been quick to blame me for anything he is not agreeable with when it comes to this patient care even at previous hospitals where I never took care of the patient at. Every time I had a discussion with him, it has been fairly tense as he does not comprehend or process information being given in terms of his mother's clinical status and critical state, he always goes on tangents and focus on previous hospitalizations or other topics he deems relevant, also per prior social services analyst notes and RN notes when I am not present apparently he accuses me of withholding care from his mother or harming his mother whereas when we have discussions and at the end of the discussions he never communicated that impression and even sometimes is more or less thankful for the care his mother is receiving. It has been difficult to consent for any procedures as he would agree to it when we discuss it and later change his mind, claimed that he was never informed about the procedure and declines to procedure. He did the same thing with gastroenterology Dr. Hill when he wanted to do an EGD at the beginning of hospitalization. Once again I doubt his ability to make reasonable medical decision for his mother and his fitness to be a DPOA and this has been a code at this time but most of the medical team including RNs, consultants. Exam/Review of Systems Vital Signs Vitals Vital Signs Date Time Temp Pulse Resp B/P Pulse Ox O2 Delivery O2 Flow Rate FiO2 03/10/17 08:00 90 98 03/10/17 07:45 97.2 115/71 03/10/17 06:45 Mechanical Ventilator 03/10/17 05:44 23 30 Intake and Output 03/09/17 03/09/17 03/10/17 15:00 23:00 07:00 Intake Total 1530 ml 538.2 ml Output Total 260 ml 140 ml 170 ml Balance -260 ml 1390 ml 368.2 ml Exam Constitutional: non-verbal, other (Intubated, jaundiced) Respiratory: diminished breath sounds (Bases bilaterally), other (On vent) Cardiovascular: nl pulses, regular rate and rhythm Gastrointestinal: non-tender, soft Musculoskeletal: swelling (Anasarca) Extremities: normal pulses, other (Anasarca) Neurological: lethargic, other (Intubated) Results Result Diagram: 03/10/17 0445 03/10/17 0445 Results 24 hrs Laboratory Tests Test 03/09/17 10:44 03/09/17 10:45 03/09/17 17:10 03/09/17 18:57 Bedside Glucose 69 L 81 85 White Blood Count 14.4 H Red Blood Count 3.32 L Hemoglobin 9.1 L Hematocrit 27.6 L Mean Corpuscular Volume 83.1 Mean Corpuscular Hemoglobin 27.4 L Mean Corpuscular Hemoglobin Concent 33.0 Red Cell Distribution Width 19.1 H Platelet Count 78 L Mean Platelet Volume Neutrophils % Segmented Neutrophils % (Manual) 87 H Lymphocytes % Lymphocytes % (Manual) 5 L Monocytes % Monocytes % (Manual) 4 Eosinophils % Eosinophils % (Manual) 4 Basophils % Nucleated Red Blood Cells % 0.0 Neutrophils # Absolute Lymphocytes (Manual) 0.7 L Lymphocytes # Monocytes # Absolute Monocytes (Manual) 0.5 Eosinophils # Basophils # Nucleated Red Blood Cells # Smudge Cells % 12 H Thrombocytosis 6 H Platelet Estimate DECREASED Prothrombin Time 22.3 H Prothrombin Time Ratio 1.7 INR International Normalized Ratio 1.94 Activated Partial Thromboplast Time 49.1 H Thrombin Time 20.8 H Fibrinogen 123.0 #L Plasma Fibrin Degradation Products >10 and <40 H D-Dimer > 72038.00 H Test 03/09/17 20:22 03/10/17 01:16 03/10/17 04:45 03/10/17 04:59 Bedside Glucose 99 84 77 White Blood Count 15.6 H Red Blood Count 3.61 L Hemoglobin 9.9 L Hematocrit 31.2 L Mean Corpuscular Volume 86.4 Mean Corpuscular Hemoglobin 27.4 L Mean Corpuscular Hemoglobin Concent 31.7 L Red Cell Distribution Width 19.5 H Platelet Count 70 L Mean Platelet Volume Neutrophils % 70.7 Lymphocytes % 19.6 Monocytes % 5.0 Eosinophils % 3.3 Basophils % 0.4 Nucleated Red Blood Cells % 0.3 H Neutrophils # 11.1 H Lymphocytes # 3.1 H Monocytes # 0.8 Eosinophils # 0.5 Basophils # 0.1 Nucleated Red Blood Cells # 0.1 H Sodium Level 140 Potassium Level 4.3 Chloride Level 113 H Carbon Dioxide Level 18 L Anion Gap 13 Blood Urea Nitrogen 25 H Creatinine 0.86 Glucose Level 75 Calcium Level 9.1 Phosphorus Level 3.8 Magnesium Level 1.9 Total Bilirubin 6.7 H Direct Bilirubin 5.20 H Indirect Bilirubin 1.5 H Aspartate Amino Transf (AST/SGOT) 58 H Alanine Aminotransferase (ALT/SGPT) 30 Alkaline Phosphatase 350 H Total Protein 5.4 L Albumin 1.7 L Globulin 3.70 H Albumin/Globulin Ratio 0.45 Test 03/10/17 05:00 03/10/17 07:57 Lactic Acid Level 2.0 Bedside Glucose 82 Medications Medications Current Medications Ondansetron HCl (Zofran Inj) 4 mg Q6H PRN IV NAUSEA AND/OR VOMITING Last administered on 02/13/17 00:36; Admin Dose 4 MG; Start 02/11/17 at 10:00 Acetaminophen (Tylenol Tab) 650 mg Q6H PRN PO PAIN LEVEL 1-3 OR FEVER Last administered on 02/25/17 19:51; Admin Dose 650 MG; Start 02/11/17 at 10:00 Docusate Sodium (Colace) 100 mg Q12H PRN PO CONSTIPATION; Start 02/11/17 at 10: 00 Bisacodyl (Dulcolax Supp) 10 mg DAILY PRN LA CONSTIPATION; Start 02/11/17 at 10 :00 Miscellaneous Information (Pending Santyl Order For Wound Care) This patient prado... PRN PRN XX WOUND CARE; Start 02/11/17 at 19:00 Collagenase (Santyl) 1 applic DAILY TOP Last administered on 03/10/17 08:00; Admin Dose 1 APPLIC; Start 02/12/17 at 13:30 Diphenhydramine HCl (Benadryl) 25 mg Q6H PRN IV ITCHING Last administered on 07:50; Admin Dose 25 MG; Start 02/12/17 at 14:00 Alprazolam (Xanax) 0.25 mg Q12H PRN PO ANXIETY Last administered on 03/10/17 07 :58; Admin Dose 0.25 MG; Start 02/19/17 at 14:00 Pantoprazole (Protonix Iv) 40 mg DAILY@06 IV Last administered on 03/10/17 06: 14; Admin Dose 40 MG; Start 02/23/17 at 06:00 Midodrine (Proamatine) 5 mg TID PO Last administered on 03/10/17 07:59; Admin Dose 5 MG; Start 02/23/17 at 13:30 Lorazepam (Ativan) 0.5 mg Q8H PRN IV AGITATION/ANXIETY Last administered on 03/08 05:03; Admin Dose 0.5 MG; Start 02/23/17 at 13:30 Miscellaneous Information DAILY XX Last administered on 03/10/17 08:00; Admin Dose 1 EA; Start 02/25/17 at 09:00 Midazolam HCl 50 ml @ 1 mls/hr TITRATE IV Last administered on 03/09/17 11:30; Admin Dose 2 MLS/HR; Start 02/25/17 at 10:00 Fentanyl 100 ml @ 2.5 mls/hr TITRATE IV Last administered on 02/25/17 10:43; Admin Dose 2.5 MLS/HR; Start 02/25/17 at 10:00 Norepinephrine 32 mg/Dextrose 500 ml @ 0 mls/hr TITRATE IV Last administered on 03/09/17 04:52; Admin Dose 3.75 MLS/HR; Start 02/28/17 at 11:30 Phenylephrine HCl 80 mg/Dextrose 500 ml @ 0 mls/hr TITRATE IV Last administered on 02/28/17 14:18; Admin Dose 7.5 MLS/HR; Start 02/28/17 at 11:30 Vancomycin HCl 750 mg/Dextrose/ Water 150 ml @ 75 mls/hr Q48H IVPB Last administered on 03/09/17 01:12; Admin Dose 75 MLS/HR; Start 03/03/17 at 01:00 Dextrose/Sodium Chloride (D5-NS) 1,000 ml @ 35 mls/hr Q24H IV Last administered on 03/09/17 19:00; Admin Dose 35 MLS/HR; Start 03/02/17 at 12:30 Miscellaneous Information 1 ea NOTE XX ; Start 03/02/17 at 12:30 Glucose (Glutose) 15 gm Q15M PRN PO DECREASED GLUCOSE; Start 03/02/17 at 12:30 Glucose (Glutose) 22.5 gm Q15M PRN PO DECREASED GLUCOSE; Start 03/02/17 at 12: 30 Dextrose (D50w Syringe) 25 ml Q15M PRN IV DECREASED GLUCOSE Last administered on 03/02/17 12:18; Admin Dose 25 ML; Start 03/02/17 at 12:30 Dextrose (D50w Syringe) 50 ml Q15M PRN IV DECREASED GLUCOSE; Start 03/02/17 at 12:30 Glucagon (Glucagen) 1 mg Q15M PRN IM DECREASED GLUCOSE; Start 03/02/17 at 12:30 Glucose (Glutose) 15 gm Q15M PRN BUCCAL DECREASED GLUCOSE; Start 03/02/17 at 12 :30 Diagnostic Test (Pha) 1 ea 1 ea Q4 XX Last administered on 03/10/17 08:00; Admin Dose 1 EA; Start 03/04/17 at 09:00 Caspofungin 35 mg/ Sodium Chloride 250 ml @ 250 mls/hr Q24H IVPB Last administered on 03/09/17 14:53; Admin Dose 250 MLS/HR; Start 03/04/17 at 15:00 Total Parenteral Nutrition (Tpn) 1,000 ml @ 40 mls/hr Q24H IV Last administered on 03/09/17 20:08; Admin Dose 40 MLS/HR; Start 03/06/17 at 20:00 Sodium Hypochlorite (Dakin'S (1/4 Strength)) 1 applic DAILY IRR Last administered on 03/10/17 07:59; Admin Dose 1 APPLIC; Start 03/07/17 at 09:00 Morphine Sulfate (morphine) 2 mg Q4H PRN IV PAIN LEVEL 7-10 Last administered on 03/07/17 12:25; Admin Dose 2 MG; Start 03/07/17 at 10:00 Miscellaneous Information (*Rx Drug Level Order Reminder*) VANCO TROUGH @ 0, 000 ON... ONCE ONCE XX ; Start 03/11/17 at 00:00; Stop 03/11/17 at 00:01 BONIFACIO COWART Mar 10, 2017 09:14
--- NOTE | 2017-03-10 11:20 | CONS ---
Date/Time of Note Date/Time of Note DATE: 03/10/17 TIME: 11:14 Assessment/Plan Assessment/Plan Chief Complaint/Hosp Course ID PROGRESS NOTE TOTAL ABX DAY #12 => VANCO IV + Cancidas MERREM -> DC 03/08 24H INTERVAL SUMMARY * No fevers, WBC, remains orally intubated-> Did not tolerate pressure support weaning trial today * Requiring increase pressor support, urine out put declined * CXR 03/10: Stable central pulmonary vascular congestion and mild interstitial prominence in both lungs.Stable bilateral lower lung infiltrates, combined with small pleural effusions. * Repeat urine Cx post FC change is (-), repeat BCx post line change pending * MICRO: (+)Yeast UTI (+)Yeast BCx = Fungemia due to Infected PICC line + UTI * 02/25 BCx(+)Yeast; 02/28/17 BCx (+) Yeast; 03/02 BCx (-) GENERAL: Elderly lady on mechanical ventilation orally intubated. VITAL SIGNS: see below. HEENT: Unremarkable ETT-> secure to Vent CARDIAC: S1, S2, 1/6 systolic ejection murmur CHEST: Diminished air entry bilaterally. ABDOMEN: Mildly distended. Bowel sounds present no guarding or rebound EXTREMITIES: No cyanosis, clubbing edema NEUROLOGIC: Generalized weakness ID ASSESSMENT 86 yo F with: 1. Sepsis w/Fevers >102.+ 02/24 &, leukocytosis, tachycardia => Disseminated Fungemia ->REQUIRING INCREASED PRESSORS TODAY * Repeat BCx via new PICC 03/06 (-) * BCx 02/25 (+) YEAST => Infx PICC line== PICC DC'd 03/06/17 * 02/25/17 YEAST UTI = FC changed 2. Acute hypoxic respiratory failure=> Intubated 02/24 in setting of sepsis 3. Severe pancreatitis with pseudocyst, currently on TPN. * Plan to drain pseudocyst #2 on hold due to sepsis, thrombocytopenia 4. Acute on chronic anemia status post blood product transfusion 5. Urinary retention 6. s/p VRE UTI 02/15/17 7. s/p acute kidney injury 8. Venous thromboembolism with episode of DVT, status post IVC filter. Repeat Doppler negative for DVT (+)MRSA Nares screen (+)MRSA Stool colonization (+)VRE Stool colonization INVASIVES: Left CVC 03/05/17, ETT, OGT ABX ALLERGY: PCN CURRENT ABX: #12 => VANCO IV + Cancidas MERREM -> DC 03/08 ID RECOMMENDATIONS Failed weaning trial -- increased need for pressor support today 1. Repeat UA C&S, sputum today 2. For TEMP >101 repeat BCx x2 . Problems: Consultation Date/Type/Reason Admit Date/Time Feb 11, 2017 at 05:28 Initial Consult Date 02/21/17 Type of Consultation: ID Referring Provider: BONIFACIO COWART Exam/Review of Systems Vital Signs Vitals Vital Signs Date Time Temp Pulse Resp B/P Pulse Ox O2 Delivery O2 Flow Rate FiO2 03/10/17 08:00 90 03/10/17 08:00 98 03/10/17 07:45 97.2 115/71 03/10/17 06:45 Mechanical Ventilator 03/10/17 05:44 23 30 Intake and Output 03/09/17 03/09/17 03/10/17 14:59 22:59 06:59 Intake Total 1450 ml 618.2 ml Output Total 240 ml 180 ml 170 ml Balance -240 ml 1270 ml 448.2 ml Results Result Diagram: 03/10/17 0445 03/10/17 0445 Results 24 hrs Laboratory Tests Test 03/09/17 17:10 03/09/17 18:57 03/09/17 20:22 03/10/17 01:16 White Blood Count 14.4 H Red Blood Count 3.32 L Hemoglobin 9.1 L Hematocrit 27.6 L Mean Corpuscular Volume 83.1 Mean Corpuscular Hemoglobin 27.4 L Mean Corpuscular Hemoglobin Concent 33.0 Red Cell Distribution Width 19.1 H Platelet Count 78 L Mean Platelet Volume Neutrophils % Segmented Neutrophils % (Manual) 87 H Lymphocytes % Lymphocytes % (Manual) 5 L Monocytes % Monocytes % (Manual) 4 Eosinophils % Eosinophils % (Manual) 4 Basophils % Nucleated Red Blood Cells % 0.0 Neutrophils # Absolute Lymphocytes (Manual) 0.7 L Lymphocytes # Monocytes # Absolute Monocytes (Manual) 0.5 Eosinophils # Basophils # Nucleated Red Blood Cells # Smudge Cells % 12 H Thrombocytosis 6 H Platelet Estimate DECREASED Prothrombin Time 22.3 H Prothrombin Time Ratio 1.7 INR International Normalized Ratio 1.94 Activated Partial Thromboplast Time 49.1 H Thrombin Time 20.8 H Fibrinogen 123.0 #L Plasma Fibrin Degradation Products >10 and <40 H D-Dimer > 33998.00 H Bedside Glucose 85 99 84 Test 03/10/17 04:45 03/10/17 04:59 03/10/17 05:00 03/10/17 07:57 White Blood Count 15.6 H Red Blood Count 3.61 L Hemoglobin 9.9 L Hematocrit 31.2 L Mean Corpuscular Volume 86.4 Mean Corpuscular Hemoglobin 27.4 L Mean Corpuscular Hemoglobin Concent 31.7 L Red Cell Distribution Width 19.5 H Platelet Count 70 L Mean Platelet Volume Neutrophils % 70.7 Lymphocytes % 19.6 Monocytes % 5.0 Eosinophils % 3.3 Basophils % 0.4 Nucleated Red Blood Cells % 0.3 H Neutrophils # 11.1 H Lymphocytes # 3.1 H Monocytes # 0.8 Eosinophils # 0.5 Basophils # 0.1 Nucleated Red Blood Cells # 0.1 H Sodium Level 140 Potassium Level 4.3 Chloride Level 113 H Carbon Dioxide Level 18 L Anion Gap 13 Blood Urea Nitrogen 25 H Creatinine 0.86 Glucose Level 75 Calcium Level 9.1 Phosphorus Level 3.8 Magnesium Level 1.9 Total Bilirubin 6.7 H Direct Bilirubin 5.20 H Indirect Bilirubin 1.5 H Aspartate Amino Transf (AST/SGOT) 58 H Alanine Aminotransferase (ALT/SGPT) 30 Alkaline Phosphatase 350 H Total Protein 5.4 L Albumin 1.7 L Globulin 3.70 H Albumin/Globulin Ratio 0.45 Bedside Glucose 77 82 Lactic Acid Level 2.0 Test 03/10/17 09:56 Lactic Acid Level 1.4 Medications Medications Current Medications Ondansetron HCl (Zofran Inj) 4 mg Q6H PRN IV NAUSEA AND/OR VOMITING Last administered on 02/13/17 00:36; Admin Dose 4 MG; Start 02/11/17 at 10:00 Acetaminophen (Tylenol Tab) 650 mg Q6H PRN PO PAIN LEVEL 1-3 OR FEVER Last administered on 02/25/17 19:51; Admin Dose 650 MG; Start 02/11/17 at 10:00 Docusate Sodium (Colace) 100 mg Q12H PRN PO CONSTIPATION; Start 02/11/17 at 10: 00 Bisacodyl (Dulcolax Supp) 10 mg DAILY PRN [place] CONSTIPATION; Start 02/11/17 at 10 :00 Miscellaneous Information (Pending Santyl Order For Wound Care) This patient prado... PRN PRN XX WOUND CARE; Start 02/11/17 at 19:00 Collagenase (Santyl) 1 applic DAILY TOP Last administered on 03/10/17 08:00; Admin Dose 1 APPLIC; Start 02/12/17 at 13:30 Diphenhydramine HCl (Benadryl) 25 mg Q6H PRN IV ITCHING Last administered on 07:50; Admin Dose 25 MG; Start 02/12/17 at 14:00 Alprazolam (Xanax) 0.25 mg Q12H PRN PO ANXIETY Last administered on 03/10/17 07 :58; Admin Dose 0.25 MG; Start 02/19/17 at 14:00 Pantoprazole (Protonix Iv) 40 mg DAILY@06 IV Last administered on 03/10/17 06: 14; Admin Dose 40 MG; Start 02/23/17 at 06:00 Midodrine (Proamatine) 5 mg TID PO Last administered on 03/10/17 07:59; Admin Dose 5 MG; Start 02/23/17 at 13:30 Lorazepam (Ativan) 0.5 mg Q8H PRN IV AGITATION/ANXIETY Last administered on 03/08 05:03; Admin Dose 0.5 MG; Start 02/23/17 at 13:30 Miscellaneous Information DAILY XX Last administered on 03/10/17 08:00; Admin Dose 1 EA; Start 02/25/17 at 09:00 Midazolam HCl 50 ml @ 1 mls/hr TITRATE IV Last administered on 03/09/17 11:30; Admin Dose 2 MLS/HR; Start 02/25/17 at 10:00 Fentanyl 100 ml @ 2.5 mls/hr TITRATE IV Last administered on 02/25/17 10:43; Admin Dose 2.5 MLS/HR; Start 02/25/17 at 10:00 Norepinephrine 32 mg/Dextrose 500 ml @ 0 mls/hr TITRATE IV Last administered on 03/09/17 04:52; Admin Dose 3.75 MLS/HR; Start 02/28/17 at 11:30 Phenylephrine HCl 80 mg/Dextrose 500 ml @ 0 mls/hr TITRATE IV Last administered on 02/28/17 14:18; Admin Dose 7.5 MLS/HR; Start 02/28/17 at 11:30 Vancomycin HCl 750 mg/Dextrose/ Water 150 ml @ 75 mls/hr Q48H IVPB Last administered on 03/09/17 01:12; Admin Dose 75 MLS/HR; Start 03/03/17 at 01:00 Dextrose/Sodium Chloride (D5-NS) 1,000 ml @ 35 mls/hr Q24H IV Last administered on 03/09/17 19:00; Admin Dose 35 MLS/HR; Start 03/02/17 at 12:30 Miscellaneous Information 1 ea NOTE XX ; Start 03/02/17 at 12:30 Glucose (Glutose) 15 gm Q15M PRN PO DECREASED GLUCOSE; Start 03/02/17 at 12:30 Glucose (Glutose) 22.5 gm Q15M PRN PO DECREASED GLUCOSE; Start 03/02/17 at 12: 30 Dextrose (D50w Syringe) 25 ml Q15M PRN IV DECREASED GLUCOSE Last administered on 03/02/17 12:18; Admin Dose 25 ML; Start 03/02/17 at 12:30 Dextrose (D50w Syringe) 50 ml Q15M PRN IV DECREASED GLUCOSE; Start 03/02/17 at 12:30 Glucagon (Glucagen) 1 mg Q15M PRN IM DECREASED GLUCOSE; Start 03/02/17 at 12:30 Glucose (Glutose) 15 gm Q15M PRN BUCCAL DECREASED GLUCOSE; Start 03/02/17 at 12 :30 Diagnostic Test (Pha) 1 ea 1 ea Q4 XX Last administered on 03/10/17 08:00; Admin Dose 1 EA; Start 03/04/17 at 09:00 Caspofungin 35 mg/ Sodium Chloride 250 ml @ 250 mls/hr Q24H IVPB Last administered on 03/09/17 14:53; Admin Dose 250 MLS/HR; Start 03/04/17 at 15:00 Total Parenteral Nutrition (Tpn) 1,000 ml @ 40 mls/hr Q24H IV Last administered on 03/09/17 20:08; Admin Dose 40 MLS/HR; Start 03/06/17 at 20:00 Sodium Hypochlorite (Dakin'S (08/06 Strength)) 1 applic DAILY IRR Last administered on 03/10/17 07:59; Admin Dose 1 APPLIC; Start 03/07/17 at 09:00 Morphine Sulfate (morphine) 2 mg Q4H PRN IV PAIN LEVEL 7-10 Last administered on 03/07/17 12:25; Admin Dose 2 MG; Start 03/07/17 at 10:00 Miscellaneous Information (*Rx Drug Level Order Reminder*) VANCO TROUGH @ 0, 000 ON... ONCE ONCE XX ; Start 03/11/17 at 00:00; Stop 03/11/17 at 00:01 DEBORA WILLOUGHBY NP Mar 10, 2017 11:20
--- NOTE | 2017-03-10 11:24 | CONS ---
Date/Time of Note Date/Time of Note DATE: 03/10/17 TIME: 11:22 Consult Date/Type/Reason Admit Date/Time Feb 11, 2017 at 05:28 Initial Consult Date 02/21/17 Type of Consultation: Pulmonary Ordering Provider: BONIFACIO COWART Subjective Mostly somnolent on mechanical ventilation Objective Vital Signs Date Time Temp Pulse Resp B/P Pulse Ox O2 Delivery O2 Flow Rate FiO2 03/10/17 08:00 90 03/10/17 08:00 98 03/10/17 07:45 97.2 115/71 03/10/17 06:45 Mechanical Ventilator 03/10/17 05:44 23 30 Intake and Output 03/09/17 03/09/17 03/10/17 15:00 23:00 07:00 Intake Total 1530 ml 620.7 ml Output Total 260 ml 140 ml 170 ml Balance -260 ml 1390 ml 450.7 ml Exam PHYSICAL EXAMINATION GENERAL: Elderly lady orally intubated on mechanical ventilation VITAL SIGNS: see below. HEENT: Pupils equal, round, and reactive to light. CARDIAC: S1, S2, 1/6 systolic ejection murmur CHEST: Diminished air entry bilaterally. ABDOMEN: Mildly distended. Bowel sounds present no guarding or rebound EXTREMITIES: No cyanosis, clubbing edema +1 NEUROLOGIC: Generalized weakness Results/Medications Result Diagram: 03/10/17 0445 03/10/17 0445 Results 24 hrs Laboratory Tests Test 03/09/17 17:10 03/09/17 18:57 03/09/17 20:22 03/10/17 01:16 White Blood Count 14.4 H Red Blood Count 3.32 L Hemoglobin 9.1 L Hematocrit 27.6 L Mean Corpuscular Volume 83.1 Mean Corpuscular Hemoglobin 27.4 L Mean Corpuscular Hemoglobin Concent 33.0 Red Cell Distribution Width 19.1 H Platelet Count 78 L Mean Platelet Volume Neutrophils % Segmented Neutrophils % (Manual) 87 H Lymphocytes % Lymphocytes % (Manual) 5 L Monocytes % Monocytes % (Manual) 4 Eosinophils % Eosinophils % (Manual) 4 Basophils % Nucleated Red Blood Cells % 0.0 Neutrophils # Absolute Lymphocytes (Manual) 0.7 L Lymphocytes # Monocytes # Absolute Monocytes (Manual) 0.5 Eosinophils # Basophils # Nucleated Red Blood Cells # Smudge Cells % 12 H Thrombocytosis 6 H Platelet Estimate DECREASED Prothrombin Time 22.3 H Prothrombin Time Ratio 1.7 INR International Normalized Ratio 1.94 Activated Partial Thromboplast Time 49.1 H Thrombin Time 20.8 H Fibrinogen 123.0 #L Plasma Fibrin Degradation Products >10 and <40 H D-Dimer > 72293.00 H Bedside Glucose 85 99 84 Test 03/10/17 04:45 03/10/17 04:59 03/10/17 05:00 03/10/17 07:57 White Blood Count 15.6 H Red Blood Count 3.61 L Hemoglobin 9.9 L Hematocrit 31.2 L Mean Corpuscular Volume 86.4 Mean Corpuscular Hemoglobin 27.4 L Mean Corpuscular Hemoglobin Concent 31.7 L Red Cell Distribution Width 19.5 H Platelet Count 70 L Mean Platelet Volume Neutrophils % 70.7 Lymphocytes % 19.6 Monocytes % 5.0 Eosinophils % 3.3 Basophils % 0.4 Nucleated Red Blood Cells % 0.3 H Neutrophils # 11.1 H Lymphocytes # 3.1 H Monocytes # 0.8 Eosinophils # 0.5 Basophils # 0.1 Nucleated Red Blood Cells # 0.1 H Sodium Level 140 Potassium Level 4.3 Chloride Level 113 H Carbon Dioxide Level 18 L Anion Gap 13 Blood Urea Nitrogen 25 H Creatinine 0.86 Glucose Level 75 Calcium Level 9.1 Phosphorus Level 3.8 Magnesium Level 1.9 Total Bilirubin 6.7 H Direct Bilirubin 5.20 H Indirect Bilirubin 1.5 H Aspartate Amino Transf (AST/SGOT) 58 H Alanine Aminotransferase (ALT/SGPT) 30 Alkaline Phosphatase 350 H Total Protein 5.4 L Albumin 1.7 L Globulin 3.70 H Albumin/Globulin Ratio 0.45 Bedside Glucose 77 82 Lactic Acid Level 2.0 Test 03/10/17 09:56 Lactic Acid Level 1.4 Medications Current Medications Ondansetron HCl (Zofran Inj) 4 mg Q6H PRN IV NAUSEA AND/OR VOMITING Last administered on 02/13/17 00:36; Admin Dose 4 MG; Start 02/11/17 at 10:00 Acetaminophen (Tylenol Tab) 650 mg Q6H PRN PO PAIN LEVEL 1-3 OR FEVER Last administered on 02/25/17 19:51; Admin Dose 650 MG; Start 02/11/17 at 10:00 Docusate Sodium (Colace) 100 mg Q12H PRN PO CONSTIPATION; Start 02/11/17 at 10: 00 Bisacodyl (Dulcolax Supp) 10 mg DAILY PRN [place] CONSTIPATION; Start 02/11/17 at 10 :00 Miscellaneous Information (Pending Santyl Order For Wound Care) This patient prado... PRN PRN XX WOUND CARE; Start 02/11/17 at 19:00 Collagenase (Santyl) 1 applic DAILY TOP Last administered on 03/10/17 08:00; Admin Dose 1 APPLIC; Start 02/12/17 at 13:30 Diphenhydramine HCl (Benadryl) 25 mg Q6H PRN IV ITCHING Last administered on 07:50; Admin Dose 25 MG; Start 02/12/17 at 14:00 Alprazolam (Xanax) 0.25 mg Q12H PRN PO ANXIETY Last administered on 03/10/17 07 :58; Admin Dose 0.25 MG; Start 02/19/17 at 14:00 Pantoprazole (Protonix Iv) 40 mg DAILY@06 IV Last administered on 03/10/17 06: 14; Admin Dose 40 MG; Start 02/23/17 at 06:00 Midodrine (Proamatine) 5 mg TID PO Last administered on 03/10/17 07:59; Admin Dose 5 MG; Start 02/23/17 at 13:30 Lorazepam (Ativan) 0.5 mg Q8H PRN IV AGITATION/ANXIETY Last administered on 03/08 05:03; Admin Dose 0.5 MG; Start 02/23/17 at 13:30 Miscellaneous Information DAILY XX Last administered on 03/10/17 08:00; Admin Dose 1 EA; Start 02/25/17 at 09:00 Midazolam HCl 50 ml @ 1 mls/hr TITRATE IV Last administered on 03/09/17 11:30; Admin Dose 2 MLS/HR; Start 02/25/17 at 10:00 Fentanyl 100 ml @ 2.5 mls/hr TITRATE IV Last administered on 02/25/17 10:43; Admin Dose 2.5 MLS/HR; Start 02/25/17 at 10:00 Norepinephrine 32 mg/Dextrose 500 ml @ 0 mls/hr TITRATE IV Last administered on 03/09/17 04:52; Admin Dose 3.75 MLS/HR; Start 02/28/17 at 11:30 Phenylephrine HCl 80 mg/Dextrose 500 ml @ 0 mls/hr TITRATE IV Last administered on 02/28/17 14:18; Admin Dose 7.5 MLS/HR; Start 02/28/17 at 11:30 Vancomycin HCl 750 mg/Dextrose/ Water 150 ml @ 75 mls/hr Q48H IVPB Last administered on 03/09/17 01:12; Admin Dose 75 MLS/HR; Start 03/03/17 at 01:00 Dextrose/Sodium Chloride (D5-NS) 1,000 ml @ 35 mls/hr Q24H IV Last administered on 03/09/17 19:00; Admin Dose 35 MLS/HR; Start 03/02/17 at 12:30 Miscellaneous Information 1 ea NOTE XX ; Start 03/02/17 at 12:30 Glucose (Glutose) 15 gm Q15M PRN PO DECREASED GLUCOSE; Start 03/02/17 at 12:30 Glucose (Glutose) 22.5 gm Q15M PRN PO DECREASED GLUCOSE; Start 03/02/17 at 12: 30 Dextrose (D50w Syringe) 25 ml Q15M PRN IV DECREASED GLUCOSE Last administered on 03/02/17 12:18; Admin Dose 25 ML; Start 03/02/17 at 12:30 Dextrose (D50w Syringe) 50 ml Q15M PRN IV DECREASED GLUCOSE; Start 03/02/17 at 12:30 Glucagon (Glucagen) 1 mg Q15M PRN IM DECREASED GLUCOSE; Start 03/02/17 at 12:30 Glucose (Glutose) 15 gm Q15M PRN BUCCAL DECREASED GLUCOSE; Start 03/02/17 at 12 :30 Diagnostic Test (Pha) 1 ea 1 ea Q4 XX Last administered on 03/10/17 08:00; Admin Dose 1 EA; Start 03/04/17 at 09:00 Caspofungin 35 mg/ Sodium Chloride 250 ml @ 250 mls/hr Q24H IVPB Last administered on 03/09/17 14:53; Admin Dose 250 MLS/HR; Start 03/04/17 at 15:00 Total Parenteral Nutrition (Tpn) 1,000 ml @ 40 mls/hr Q24H IV Last administered on 03/09/17 20:08; Admin Dose 40 MLS/HR; Start 03/06/17 at 20:00 Sodium Hypochlorite (Dakin'S (1/4 Strength)) 1 applic DAILY IRR Last administered on 03/10/17 07:59; Admin Dose 1 APPLIC; Start 03/07/17 at 09:00 Morphine Sulfate (morphine) 2 mg Q4H PRN IV PAIN LEVEL 7-10 Last administered on 03/07/17 12:25; Admin Dose 2 MG; Start 03/07/17 at 10:00 Miscellaneous Information (*Rx Drug Level Order Reminder*) VANCO TROUGH @ 0, 000 ON... ONCE ONCE XX ; Start 03/11/17 at 00:00; Stop 03/11/17 at 00:01 Assessment/Plan Chief Complaint/Hosp Course Additional Assessment/Plan IMP: 1. Vent Dependent Resp Failure 2. Fungemia 3. Pancreatitis possible obstructive jaundice. 4. AMS/Encephalopathy 5. Anemia RECS: 1. Vent support currently not weanable from mechanical ventilation secondary to complex medical issues and altered mental status. 2. Continue broad-spectrum antibiotics 3. Surgery recommendations. 4. Anti-fungals per ID 5. Palliative care consult. 35 min cc time Problems: SLAVA MCBRIDE MD, [facility] Mar 10, 2017 11:24
[2017-03-10] MEDS: DEXTROSE 5%-0.9% NACL 1,000 ML IV SCH ×2 (11:44→20:17)
[2017-03-10] MEDS ORDERED: ALBUMIN HUMAN 5% 250 ML IV ONE (12:00)
[2017-03-10] MEDS: CASPOFUNGIN 35 MG in SOD CHLORIDE 0.9% 250 ML IVPB SCH (15:22)
[2017-03-10 15:50] LABS: ADD UMIC YES; UR ASCORBIC ACID NEGATIVE (NEGATIVE); UR BACTERIA FEW /HPF (NONE SEEN); UR BILIRUBIN (Dip) 1+ mg/dL (NEGATIVE); UR BLOOD (Dip) 2+ mg/dL (NEGATIVE); UR CLARITY CLOUDY (CLEAR); UR COLOR AMBER (YELLOW); UR GLUCOSE (Dip) NEGATIVE (NEGATIVE); UR KETONES (Dip) NEGATIVE (NEGATIVE); UR LEUKOCYTE ESTERASE (Dip) TRACE Leu/ul (NEGATIVE); UR NITRITE (Dip) NEGATIVE (NEGATIVE); UR RBC 6 /HPF (0-5); UR SPECIFIC GRAVITY (Dip) 1.016 (1.003-1.030); UR SQUAMOUS EPITHELIAL CELL FEW /HPF (FEW); UR TOTAL PROTEIN (Dip) 1+ mg/dl (NEGATIVE); UR UROBILINOGEN (Dip) 1+ mg/dL (NEGATIVE)
--- NOTE | 2017-03-10 16:32 | PN ---
Date/Time of Note Date/Time of Note DATE: 03/10/17 TIME: 16:31 Assessment/Plan Lines/Catheters IV Catheter Type (from Nrsg): Central Line Elder in Place (from Nrsg): Yes Assessment/Plan Chief Complaint/Hosp Course Additional Assessment/Plan Respiratory failure Pancreatitis Infected PICC line Patient will be needing a central line I had a discussion with the son today He is in agreement to proceed with a central line Response complications alternative therapies explained to the patient's son All questions answered SP central line placement, site clean will continue supp care Problems: Subjective 24 Hr Interval Summary Constitutional: improved Pain Control: mild Exam/Review of Systems Vital Signs Vitals Vital Signs Date Time Temp Pulse Resp B/P Pulse Ox O2 Delivery O2 Flow Rate FiO2 03/10/17 15:50 76 26 99 30 03/10/17 07:45 97.2 115/71 03/10/17 06:45 Mechanical Ventilator Intake and Output 03/09/17 03/09/17 03/10/17 15:00 23:00 07:00 Intake Total 1530 ml 620.7 ml Output Total 260 ml 140 ml 170 ml Balance -260 ml 1390 ml 450.7 ml Exam ENMT: mucosa pink and moist, nl external ears & nose, nl lips & teeth, nl nasal mucosa & septum Neck: non-tender, supple Respiratory: clear to auscultation, normal air movement Cardiovascular: nl pulses, regular rate and rhythm Results Result Diagram: 03/10/17 0445 03/10/17 0445 LUIZ SEQUEIRA MD Mar 10, 2017 16:32
--- NOTE | 2017-03-10 17:26 | PN ---
Date/Time of Note Date/Time of Note DATE: 03/10/17 TIME: 17:23 Assessment/Plan VTE Prophylaxis VTE Prophylaxis Intervention: contraindicated VTE Contraindication Reason: bleeding Lines/Catheters IV Catheter Type (from Nrs): Central Line Central line still needed: Yes Urinary Cath still in place: Yes Reason Cath still needed: urinary retention Assessment/Plan Assessment/Plan Sepsis * Acute respiratory failure management c/o pulmonary * Encephalopathy * Anemia/recurrent/probable GI bleeding * Refused EGD * Pancreatitis with Pancreatic pseudocyst/awaiting drainage * Coagulopathy * H/O tube cholecystostomy/biliary stent * Rule out stent occlusion Plan : * Continue present regimen * monitor hemoglobin and hematocrit daily and transfuse per protocol * further orders will depend on clinical course * The patient would benefit from endoscopic evaluation in ERCP with stent removal or replacement however this has been refused when the patient was in more stable condition at the present time she appears to be too unstable for invasive procedures * Case discussed with DR Hill * further orders will depend on clinical course Subjective 24 Hr Interval Summary Free Text/Dictation * Course reviewed * No untoward events overnight * still on ventilator Exam/Review of Systems Vital Signs Vitals Vital Signs Date Time Temp Pulse Resp B/P Pulse Ox O2 Delivery O2 Flow Rate FiO2 03/10/17 16:00 75 03/10/17 15:50 26 99 30 03/10/17 07:45 97.2 115/71 03/10/17 06:45 Mechanical Ventilator Intake and Output 03/09/17 03/09/17 03/10/17 15:00 23:00 07:00 Intake Total 1530 ml 620.7 ml Output Total 260 ml 140 ml 170 ml Balance -260 ml 1390 ml 450.7 ml Exam Constitutional: frail Neck: non-tender, supple Respiratory: clear to auscultation, normal air movement Cardiovascular: nl pulses, regular rate and rhythm Extremities: normal pulses Neurological: lethargic Skin: rash or lesions Results Result Diagram: 03/10/17 0445 03/10/17 0445 Results 24 hrs Laboratory Tests Test 03/09/17 18:57 03/09/17 20:22 03/10/17 01:16 03/10/17 04:45 Bedside Glucose 85 99 84 White Blood Count 15.6 H Red Blood Count 3.61 L Hemoglobin 9.9 L Hematocrit 31.2 L Mean Corpuscular Volume 86.4 Mean Corpuscular Hemoglobin 27.4 L Mean Corpuscular Hemoglobin Concent 31.7 L Red Cell Distribution Width 19.5 H Platelet Count 70 L Mean Platelet Volume Neutrophils % 70.7 Lymphocytes % 19.6 Monocytes % 5.0 Eosinophils % 3.3 Basophils % 0.4 Nucleated Red Blood Cells % 0.3 H Neutrophils # 11.1 H Lymphocytes # 3.1 H Monocytes # 0.8 Eosinophils # 0.5 Basophils # 0.1 Nucleated Red Blood Cells # 0.1 H Sodium Level 140 Potassium Level 4.3 Chloride Level 113 H Carbon Dioxide Level 18 L Anion Gap 13 Blood Urea Nitrogen 25 H Creatinine 0.86 Glucose Level 75 Calcium Level 9.1 Phosphorus Level 3.8 Magnesium Level 1.9 Total Bilirubin 6.7 H Direct Bilirubin 5.20 H Indirect Bilirubin 1.5 H Aspartate Amino Transf (AST/SGOT) 58 H Alanine Aminotransferase (ALT/SGPT) 30 Alkaline Phosphatase 350 H Total Protein 5.4 L Albumin 1.7 L Globulin 3.70 H Albumin/Globulin Ratio 0.45 Test 03/10/17 04:59 03/10/17 05:00 03/10/17 07:57 03/10/17 09:56 Bedside Glucose 77 82 Lactic Acid Level 2.0 1.4 Test 03/10/17 12:52 03/10/17 13:43 03/10/17 15:43 Bedside Glucose 70 71 Urine Color INES Urine Clarity CLOUDY A Urine pH 5.0 Urine Specific [place] 1.016 Urine Ketones NEGATIVE Urine Nitrite NEGATIVE Urine Bilirubin 1+ H Urine Urobilinogen 1+ H Urine Leukocyte Esterase TRACE A Urine Microscopic RBC 6 H Urine Microscopic WBC 8 H Urine Squamous Epithelial Cells FEW Urine Bacteria FEW A Urine Hemoglobin 2+ H Urine Glucose NEGATIVE Urine Total Protein 1+ H Medications Medications Current Medications Ondansetron HCl (Zofran Inj) 4 mg Q6H PRN IV NAUSEA AND/OR VOMITING Last administered on 02/13/17 00:36; Admin Dose 4 MG; Start 02/11/17 at 10:00 Acetaminophen (Tylenol Tab) 650 mg Q6H PRN PO PAIN LEVEL 1-3 OR FEVER Last administered on 02/25/17 19:51; Admin Dose 650 MG; Start 02/11/17 at 10:00 Docusate Sodium (Colace) 100 mg Q12H PRN PO CONSTIPATION; Start 02/11/17 at 10: 00 Bisacodyl (Dulcolax Supp) 10 mg DAILY PRN [place] CONSTIPATION; Start 02/11/17 at 10 :00 Miscellaneous Information (Pending Santyl Order For Wound Care) This patient prado... PRN PRN XX WOUND CARE; Start 02/11/17 at 19:00 Collagenase (Santyl) 1 applic DAILY TOP Last administered on 03/10/17 08:00; Admin Dose 1 APPLIC; Start 02/12/17 at 13:30 Diphenhydramine HCl (Benadryl) 25 mg Q6H PRN IV ITCHING Last administered on 07:50; Admin Dose 25 MG; Start 02/12/17 at 14:00 Alprazolam (Xanax) 0.25 mg Q12H PRN PO ANXIETY Last administered on 03/10/17 07 :58; Admin Dose 0.25 MG; Start 02/19/17 at 14:00 Pantoprazole (Protonix Iv) 40 mg DAILY@06 IV Last administered on 03/10/17 06: 14; Admin Dose 40 MG; Start 02/23/17 at 06:00 Midodrine (Proamatine) 5 mg TID PO Last administered on 03/10/17 12:50; Admin Dose 5 MG; Start 02/23/17 at 13:30 Lorazepam (Ativan) 0.5 mg Q8H PRN IV AGITATION/ANXIETY Last administered on 03/08 05:03; Admin Dose 0.5 MG; Start 02/23/17 at 13:30 Miscellaneous Information DAILY XX Last administered on 03/10/17 08:00; Admin Dose 1 EA; Start 02/25/17 at 09:00 Midazolam HCl 50 ml @ 1 mls/hr TITRATE IV Last administered on 03/09/17 11:30; Admin Dose 2 MLS/HR; Start 02/25/17 at 10:00 Fentanyl 100 ml @ 2.5 mls/hr TITRATE IV Last administered on 02/25/17 10:43; Admin Dose 2.5 MLS/HR; Start 02/25/17 at 10:00 Norepinephrine 32 mg/Dextrose 500 ml @ 0 mls/hr TITRATE IV Last administered on 03/09/17 04:52; Admin Dose 3.75 MLS/HR; Start 02/28/17 at 11:30 Phenylephrine HCl 80 mg/Dextrose 500 ml @ 0 mls/hr TITRATE IV Last administered on 02/28/17 14:18; Admin Dose 7.5 MLS/HR; Start 02/28/17 at 11:30 Vancomycin HCl 750 mg/Dextrose/ Water 150 ml @ 75 mls/hr Q48H IVPB Last administered on 03/09/17 01:12; Admin Dose 75 MLS/HR; Start 03/03/17 at 01:00 Dextrose/Sodium Chloride (D5-NS) 1,000 ml @ 60 mls/hr [id number] IV Last administered on 03/10/17 11:44; Admin Dose 60 MLS/HR; Start 03/02/17 at 12:30 Miscellaneous Information 1 ea NOTE XX ; Start 03/02/17 at 12:30 Glucose (Glutose) 15 gm Q15M PRN PO DECREASED GLUCOSE; Start 03/02/17 at 12:30 Glucose (Glutose) 22.5 gm Q15M PRN PO DECREASED GLUCOSE; Start 03/02/17 at 12: 30 Dextrose (D50w Syringe) 25 ml Q15M PRN IV DECREASED GLUCOSE Last administered on 03/02/17 12:18; Admin Dose 25 ML; Start 03/02/17 at 12:30 Dextrose (D50w Syringe) 50 ml Q15M PRN IV DECREASED GLUCOSE; Start 03/02/17 at 12:30 Glucagon (Glucagen) 1 mg Q15M PRN IM DECREASED GLUCOSE; Start 03/02/17 at 12:30 Glucose (Glutose) 15 gm Q15M PRN BUCCAL DECREASED GLUCOSE; Start 03/02/17 at 12 :30 Diagnostic Test (Pha) 1 ea 1 ea Q4 XX Last administered on 03/10/17 12:50; Admin Dose 1 EA; Start 03/04/17 at 09:00 Caspofungin 35 mg/ Sodium Chloride 250 ml @ 250 mls/hr Q24H IVPB Last administered on 03/10/17 15:22; Admin Dose 250 MLS/HR; Start 03/04/17 at 15:00 Total Parenteral Nutrition (Tpn) 1,000 ml @ 40 mls/hr Q24H IV Last administered on 03/09/17 20:08; Admin Dose 40 MLS/HR; Start 03/06/17 at 20:00 Sodium Hypochlorite (Dakin'S (1/4 Strength)) 1 applic DAILY IRR Last administered on 03/10/17 07:59; Admin Dose 1 APPLIC; Start 03/07/17 at 09:00 Morphine Sulfate (morphine) 2 mg Q4H PRN IV PAIN LEVEL 7-10 Last administered on 03/07/17 12:25; Admin Dose 2 MG; Start 03/07/17 at 10:00 Miscellaneous Information (*Rx Drug Level Order Reminder*) VANCO TROUGH @ 0, 000 ON... ONCE ONCE XX ; Start 03/11/17 at 00:00; Stop 03/11/17 at 00:01 LUZMARIA SPAIN NP Mar 10, 2017 17:26
[2017-03-10] MEDS: DIPHENHYDRAMINE 50 MG INJ IV PRN (18:22)
[2017-03-10] MEDS: morphine 2 MG INJ IV PRN (18:23)
--- NOTE | 2017-03-10 19:13 | OPPN ---
Date/Time of Note Date/Time of Note DATE: 03/10/17 TIME: 19:10 Operative Report Preoperative Diagnosis Abnormal MRCP/rule out intraductal stone-mass Postoperative Diagnosis Impression: * Dilated common bile duct with elongated filling defect * Post sphincterotomy * Post removal of multiple clots from common bile duct/hematobilia * No active bleeding Plan: * Close observation * Advance diet as tolerated . Operation/Procedure Performed ERCP plus sphincterotomy ERCP plus foreign body removal Provider: AMBER NUR MD Anesthesia Type: general Estimated blood loss: minimal Transfusion Required: no Specimen: none Grafts/Implants: none Complications: no AMBER NUR MD Mar 10, 2017 19:13
[2017-03-10] MEDS: TPN 1,000 ML IV SCH (20:17)
[2017-03-10] MEDS ORDERED: PHENYLephrine 20MG IN 250 ML 250 ML ONE (22:55)
[2017-03-10] MEDS: PHENYLephrine 80 MG in DEXTROSE 5% 492 ML IV SCH (23:17)
[2017-03-11] VITALS (102 sets, daily range): BP systolic 70–141; BP diastolic 41–102; PULSE 72–118; RESP 16–29
[2017-03-11] MEDS: ACCU-CHEK XX SCH ×6 (01:12→21:00)
[2017-03-11] MEDS: IPRATROPIUM (HFA) 12.9 GM INHALER INH SCH ×3 (01:19→15:08)
[2017-03-11] MEDS: ALBUTEROL 18 GM INHALER INH SCH ×3 (01:19→15:08)
[2017-03-11] MEDS: VANCOMYCIN 750 MG in DEXTROSE 5% 150 ML IVPB SCH (01:42)
[2017-03-11] MEDS: PANTOPRAZOLE 40 MG INJ IV SCH (05:57)
[2017-03-11 06:05] LABS: INR 1.8; PT RATIO 1.6
[2017-03-11 06:06] LABS: PARTIAL THROMBOPLASTIN TIME 50.7 Sec (25.0-35.0)
[2017-03-11 06:11] LABS: ALBUMIN 1.8 g/dl (3.3-4.9); ALBUMIN/GLOBULIN RATIO 0.42; BILIRUBIN,DIRECT 5.7 mg/dl (0.00-0.20); BILIRUBIN,INDIRECT 1.6 mg/dl (0-1.1); BILIRUBIN,TOTAL 7.3 mg/dl (0.2-1.3); CALCIUM 9.2 mg/dl (8.4-10.2); CREATININE 0.86 mg/dl (0.44-1.00); MAGNESIUM 1.8 mg/dl (1.7-2.5); PHOSPHORUS 4.1 mg/dl (2.5-4.9); POTASSIUM 4.1 mmol/L (3.5-5.1)
[2017-03-11 07:58] LABS: ABNORMAL IP MESSAGE 1; BASOPHIL # 0.1 10^3/ul (0.0-0.1); BASOPHILS % 0.5 % (0.0-2.0); EOSINOPHILS # 0.3 10^3/ul (0.0-0.5); EOSINOPHILS % 1.8 % (0.0-7.0); HEMATOCRIT 31.1 % (37.0-47.0); HEMOGLOBIN 10.3 g/dl (12.0-16.0); LYMPHOCYTES # 3.7 10^3/ul (0.8-2.9); LYMPHOCYTES % 21.4 % (15.0-51.0); MEAN CORPUSCULAR HEMOGLOBIN 28.1 pg (29.0-33.0); MEAN CORPUSCULAR HGB CONC 33.1 g/dl (32.0-37.0); MONOCYTE # 0.7 10^3/ul (0.3-0.9); MONOCYTES % 4.3 % (0.0-11.0); NEUTROPHIL # 12.2 10^3/ul (1.6-7.5); NUCLEATED RED BLOOD CELLS% 0.1 /100WBC (0.0-0.0); PLATELET COUNT 81 10^3/UL (140-415); RED BLOOD COUNT 3.66 10^6/ul (4.20-5.40); RED CELL DISTRIBUTION WIDTH 19.7 % (11.5-14.5); WHITE BLOOD COUNT 17.2 10^3/ul (4.8-10.8)
[2017-03-11 08:00] LABS: POSITIVE DIFF @See below
--- NOTE | 2017-03-11 08:24 | CONS ---
Date/Time of Note Date/Time of Note DATE: 03/11/17 TIME: 08:04 Assessment/Plan Assessment/Plan Additional Assessment/Plan Status post respiratory failure Sepsis syndrome Shock Pancreatitis pancreatic pseudocyst Fluid and electrolyte abnormality Anemia Acute kidney injury Encephalopathy delirium Below are the current recommendations related to conflict resolution. I am aware of the fact that patient's primary care providers have done everything to both save patient's life and resolve issues very well documented by Dr. Loja. At this time I suggest risk management, Bioethics consultation and patient advocate also, I will be happy to inform family of the conflict resolution process after speaking to Dr. Loja I suggest waiting prior to suggesting transferring patient to another provider or seeking legal interventions at this time. I realized recommendation seemed simplistic and this is a complex psychosocial issue with family members I suggest bringing in all available hospital resource to assist. SUMMARY AND RECOMMENDATIONS ?The term "potentially inappropriate" should be used to describe treatments that clinicians believe go against their best understanding of their professional obligations. This includes treatment that is exceedingly unlikely to accomplish the patient's goals, represents an unfair allocation of scarce resources, and treatment intended to achieve a goal that is contrary to what the clinician believes is appropriate. The term "futile" treatment should be used to describe interventions that cannot accomplish the intended physiological goals. (See 'Definitions' above.) Requests for strictly futile interventions are very rare in intensive care units (ICUs). ?A clinician's initial response to a request for potentially inappropriate treatment should include intensive efforts to find a negotiated agreement, through both dialogue with the family and the involvement of expert consultants such as hospital ethics committees, palliative care consultants, or mediation experts (algorithm 1). If a mutually acceptable treatment plan cannot be found, there should be a fair process of dispute resolution, such as that recommended by a recent policy statement from five [place] and professional societies. (See 'Conflict resolution' above.) ?The recommended six-step process to conflict resolution entails: (1) Inform the surrogate about the conflict resolution process, (2) request review by a multidisciplinary hospital committee, (3) continue dialogue between the clinical team and surrogate, (4) attempt to transfer the patient to a willing provider, (5) inform surrogates of their right to seek legal intervention, and ( 6) implement a plan of care. (See 'Six-step process to conflict resolution' above.) ?In situations where a time-pressured decision is required, consensus should be reached by all involved clinicians around a specific decision prior to informing the patient and/or his or her surrogates and carrying out any action. (See 'Time pressured decisions' above.) ?Clinicians are not obligated to provide futile treatments. However, if a requested treatment is deemed futile, clinicians should carefully explain this to the patient and/or his or her surrogates and explain that the intervention will not be provided. In addition, they should seek input from other colleagues to aid in the conflict resolution process. (See 'Responding to requests for physiologically futile interventions' above.) Consultation Date/Type/Reason Admit Date/Time Feb 11, 2017 at 05:28 Date of Consultation: Mar 11, 2017 Reason for Consultation Palliative care Hx of Present Illness I have reviewed patient's chart. Patient has had an extensive hospital stay at 2 prior hospitals before presenting to [facility] respiratory failure. She has had a long complex critical care course requiring intubation transferred to the intensive care unit and seen by multiple subspecialty collection systems consultant. Major primary problem is sepsis syndrome, fungating, acute kidney injury, shock, respiratory failure requiring intubation, fluid and electrolyte abnormality. There are multiple comorbid medical problems but above the patient 's current major medical problems contributing to her declining clinical condition. Patient is a full code and primary care team especially has attempted to keep patient's family members very involved with her care decision making process and has maintained daily communications with family. In spite of this conflict has occurred between family members especially patient's son and goals of care outlined ethically by patient's primary care team. I have introduced myself to the patient's son today after reviewing patient's medical records. Constitutional: requiring IVF Eyes: no complaints ENT: no complaints Respiratory: shortness of breath Cardiovascular: no complaints Gastrointestinal: no complaints Genitourinary: no complaints Musculoskeletal: no complaints Skin: no complaints Neurologic: no complaints Endocrine: no complaints Lymphatic: no complaints Psychological: no complaints Past Medical History Medical History: deep vein thrombosis, gallstones Past Surgical History Past Surgical Hx: endoscopy, other (ivc filter,s/p tube cholecystostomy) Social History Alcohol Use: none Smoking Status: Former smoker Drug Use: none Exam/Review of Systems Vital Signs Vitals Vital Signs Date Time Temp Pulse Resp B/P Pulse Ox O2 Delivery O2 Flow Rate FiO2 8/9/17 06:45 108 84/60 100 Mechanical Ventilator 03/11/17 05:27 16 30 03/11/17 04:00 97.6 Intake and Output 03/10/17 03/10/17 03/11/17 15:00 23:00 07:00 Intake Total 854.67 ml 1241.36 ml 1256.77 ml Output Total 72 ml 73 ml 100 ml Balance 782.67 ml 1168.36 ml 1156.77 ml Results Result Diagram: 03/10/17 0445 03/11/17 0500 Results 24 hrs Laboratory Tests Test 03/10/17 09:56 03/10/17 12:52 03/10/17 13:43 03/10/17 15:43 Lactic Acid Level 1.4 Bedside Glucose 70 71 Urine Color INES Urine Clarity CLOUDY A Urine pH 5.0 Urine Specific [place] 1.016 Urine Ketones NEGATIVE Urine Nitrite NEGATIVE Urine Bilirubin 1+ H Urine Urobilinogen 1+ H Urine Leukocyte Esterase TRACE A Urine Microscopic RBC 6 H Urine Microscopic WBC 8 H Urine Squamous Epithelial Cells FEW Urine Bacteria FEW A Urine Hemoglobin 2+ H Urine Glucose NEGATIVE Urine Total Protein 1+ H Test 03/10/17 18:00 03/10/17 18:27 03/10/17 20:13 03/11/17 00:30 Stool Occult Blood POSITIVE Bedside Glucose 71 77 Vancomycin Level Trough 15.0 Test 03/11/17 01:12 03/11/17 05:00 03/11/17 05:15 Bedside Glucose 87 104 White Blood Count 17.2 H Red Blood Count 3.66 L Hemoglobin 10.3 L Hematocrit 31.1 L Mean Corpuscular Volume 85.0 Mean Corpuscular Hemoglobin 28.1 L Mean Corpuscular Hemoglobin Concent 33.1 Red Cell Distribution Width 19.7 H Platelet Count 81 L Mean Platelet Volume Neutrophils % 71.0 Lymphocytes % 21.4 Monocytes % 4.3 Eosinophils % 1.8 Basophils % 0.5 Nucleated Red Blood Cells % 0.1 H Neutrophils # 12.2 H Lymphocytes # 3.7 H Monocytes # 0.7 Eosinophils # 0.3 Basophils # 0.1 Nucleated Red Blood Cells # 0.0 Prothrombin Time 21.0 H Prothrombin Time Ratio 1.6 INR International Normalized Ratio 1.80 Activated Partial Thromboplast Time 50.7 H Sodium Level 138 Potassium Level 4.1 Chloride Level 109 Carbon Dioxide Level 18 L Anion Gap 15 Blood Urea Nitrogen 25 H Creatinine 0.86 Glucose Level 107 Calcium Level 9.2 Phosphorus Level 4.1 Magnesium Level 1.8 Total Bilirubin 7.3 H Direct Bilirubin 5.70 H Indirect Bilirubin 1.6 H Aspartate Amino Transf (AST/SGOT) 67 H Alanine Aminotransferase (ALT/SGPT) 31 Alkaline Phosphatase 419 H Total Protein 6.0 L Albumin 1.8 L Globulin 4.20 H Albumin/Globulin Ratio 0.42 Medications Medications Current Medications Ondansetron HCl (Zofran Inj) 4 mg Q6H PRN IV NAUSEA AND/OR VOMITING Last administered on 02/13/17 00:36; Admin Dose 4 MG; Start 02/11/17 at 10:00 Acetaminophen (Tylenol Tab) 650 mg Q6H PRN PO PAIN LEVEL 1-3 OR FEVER Last administered on 02/25/17 19:51; Admin Dose 650 MG; Start 02/11/17 at 10:00 Docusate Sodium (Colace) 100 mg Q12H PRN PO CONSTIPATION; Start 02/11/17 at 10: 00 Bisacodyl (Dulcolax Supp) 10 mg DAILY PRN [place] CONSTIPATION; Start 02/11/17 at 10 :00 Miscellaneous Information (Pending Santyl Order For Wound Care) This patient prado... PRN PRN XX WOUND CARE; Start 02/11/17 at 19:00 Collagenase (Santyl) 1 applic DAILY TOP Last administered on 03/10/17 08:00; Admin Dose 1 APPLIC; Start 02/12/17 at 13:30 Diphenhydramine HCl (Benadryl) 25 mg Q6H PRN IV ITCHING Last administered on 18:22; Admin Dose 25 MG; Start 02/12/17 at 14:00 Alprazolam (Xanax) 0.25 mg Q12H PRN PO ANXIETY Last administered on 03/10/17 07 :58; Admin Dose 0.25 MG; Start 02/19/17 at 14:00 Pantoprazole (Protonix Iv) 40 mg DAILY@06 IV Last administered on 03/11/17 05: 57; Admin Dose 40 MG; Start 02/23/17 at 06:00 Midodrine (Proamatine) 5 mg TID PO Last administered on 03/10/17 20:18; Admin Dose 5 MG; Start 02/23/17 at 13:30 Lorazepam (Ativan) 0.5 mg Q8H PRN IV AGITATION/ANXIETY Last administered on 03/08 05:03; Admin Dose 0.5 MG; Start 02/23/17 at 13:30 Miscellaneous Information DAILY XX Last administered on 03/10/17 08:00; Admin Dose 1 EA; Start 02/25/17 at 09:00 Midazolam HCl 50 ml @ 1 mls/hr TITRATE IV Last administered on 03/09/17 11:30; Admin Dose 2 MLS/HR; Start 02/25/17 at 10:00 Fentanyl 100 ml @ 2.5 mls/hr TITRATE IV Last administered on 02/25/17 10:43; Admin Dose 2.5 MLS/HR; Start 02/25/17 at 10:00 Norepinephrine 32 mg/Dextrose 500 ml @ 0 mls/hr TITRATE IV Last administered on 03/11/17 01:07; Admin Dose 28.12 MLS/HR; Start 02/28/17 at 11:30 Phenylephrine HCl 80 mg/Dextrose 500 ml @ 0 mls/hr TITRATE IV Last administered on 03/10/17 23:17; Admin Dose 15 MLS/HR; Start 02/28/17 at 11:30 Vancomycin HCl 750 mg/Dextrose/ Water 150 ml @ 75 mls/hr Q48H IVPB Last administered on 03/11/17 01:42; Admin Dose 75 MLS/HR; Start 03/03/17 at 01:00 Dextrose/Sodium Chloride (D5-NS) 1,000 ml @ 60 mls/hr [id number] IV Last administered on 03/10/17 20:17; Admin Dose 60 MLS/HR; Start 03/02/17 at 12:30 Miscellaneous Information 1 ea NOTE XX ; Start 03/02/17 at 12:30 Glucose (Glutose) 15 gm Q15M PRN PO DECREASED GLUCOSE; Start 03/02/17 at 12:30 Glucose (Glutose) 22.5 gm Q15M PRN PO DECREASED GLUCOSE; Start 03/02/17 at 12: 30 Dextrose (D50w Syringe) 25 ml Q15M PRN IV DECREASED GLUCOSE Last administered on 03/02/17 12:18; Admin Dose 25 ML; Start 03/02/17 at 12:30 Dextrose (D50w Syringe) 50 ml Q15M PRN IV DECREASED GLUCOSE; Start 03/02/17 at 12:30 Glucagon (Glucagen) 1 mg Q15M PRN IM DECREASED GLUCOSE; Start 03/02/17 at 12:30 Glucose (Glutose) 15 gm Q15M PRN BUCCAL DECREASED GLUCOSE; Start 03/02/17 at 12 :30 Diagnostic Test (Pha) 1 ea 1 ea Q4 XX Last administered on 03/11/17 05:57; Admin Dose 1 EA; Start 03/04/17 at 09:00 Caspofungin 35 mg/ Sodium Chloride 250 ml @ 250 mls/hr Q24H IVPB Last administered on 03/10/17 15:22; Admin Dose 250 MLS/HR; Start 03/04/17 at 15:00 Total Parenteral Nutrition (Tpn) 1,000 ml @ 40 mls/hr Q24H IV Last administered on 03/10/17 20:17; Admin Dose 40 MLS/HR; Start 03/06/17 at 20:00 Sodium Hypochlorite (Dakin'S (1/4 Strength)) 1 applic DAILY IRR Last administered on 03/10/17 07:59; Admin Dose 1 APPLIC; Start 03/07/17 at 09:00 Morphine Sulfate (morphine) 2 mg Q4H PRN IV PAIN LEVEL 7-10 Last administered on 03/10/17 18:23; Admin Dose 2 MG; Start 03/07/17 at 10:00 JYOTI SAM Mar 11, 2017 08:15
[2017-03-11] MEDS: MIDODRINE 5 MG TAB PO SCH ×3 (08:25→20:57)
[2017-03-11] MEDS: SODIUM HYPOCHLORITE 0.125% 473 ML BTL IRR SCH (08:26)
[2017-03-11] MEDS: COLLAGENASE 30 GM TUBE TOP SCH (08:27)
[2017-03-11] MEDS: BALSAM PERU/CASTOR OIL 60 GM TUBE TOP SCH (08:27)
[2017-03-11] MEDS: [UNRECOGNIZED DRUG - REMARK] XX SCH (08:27)
--- NOTE | 2017-03-11 10:11 | PN ---
Date/Time of Note Date/Time of Note DATE: 03/11/17 TIME: 09:58 Assessment/Plan VTE Prophylaxis VTE Prophylaxis Intervention: SCD's Lines/Catheters IV Catheter Type (from Nrs): Central Line Central line still needed: Yes (IV access and TPN) Urinary Cath still in place: Yes Reason Cath still needed: other (indicate) (Critically ill) Assessment/Plan Assessment/Plan 86 yo female with: 1. Acute Respiratory failure, in setting of pleural effusions, atelectasis, severe anemia and Norbert glabrata fungemia. Poor overall clinical status. Patient in ICU on mechanical ventilation due to deteriorated respiratory status. Currently on FiO2 down to 30%, and more hemodynamically unstable requiring 2 pressors now. Prognosis poor CXR mostly unchanged with pulmonary vascular congestion, small to moderate pleural effusions even s/p thoracentesis 02/20 with -300 cc and another right thoracentesis 02/23 with removal of less than 100 cc, Continue Vancomycin and Cancidas. Zosyn added per ID Continue to monitor, pulmonary following. 2. Sepsis and Septic shock, from Norbert glabrata fungemia and septicemia . She does have a risk factors but this is the first time her blood cultures are growing yeast, she has been on Diflucan throughout her admission and at discharge from the outside hospital. Patient has been now switched to Cancidas as of last week. PICC line finally removed 03/05 with tip sent for culture, patient has a central line currently. Repeat blood cx pending. Hopefully in the next 2-3 days if blood cultures remain negative, will see if patient can have a PICC line replaced as likely she will need TPN resumed. Repeat blood cultures 02/28 with 1/2 blood cultures still positive with norbert glabrata, it is unclear if it is culture from the PICC line or peripheral. Repeat blood cultures again 03/02 growing Norbert Glabrata Repeat blood cx 03/06 and 03/08 pending. Now concerns regarding possible cholangitis Continue [place] and Dr. Jeffrey Teague from infectious diseases following and Zosyn added. Patient is currently intubated, still responsive but has declined over the past 2 days, not requiring 2 pressors TPN resumed after discussion with infectious disease, but may need to back off again. 3. S/p Severe pancreatitis with pseudocyst, back on TPN and No tube feeding per GI. Now with also concerns for biliary stent obstruction. Dr Hill following, discussed this AM. CAT scan of the abdomen and pelvis has been compared to the one done at [facility] approximately 3 weeks ago, cholecystostomy tube has been removed however there is concern as the patient has a new fluid collection in addition of the previous pseudocyst also previous pseudocyst seems to have increased in size and there is concern for possible infection. We were planing for drainage of 2nd cyst since admission, but INR at 1.4 and patient clinically declined further now intubated and on 1 pressor with ongoing sepsis. Now even higher INR of 1.8 despite Vit K given, likely in DIC Per Surgery note couple of weeks ago, ? bleeding in pseudocyst but patient was not stable to get bleeding scan due to fact she was on BiPAP Continue Vancomycin and Cancidas. Zosyn added 4. Acute on chronic anemia status post blood product transfusion at least twice during this admission, Hb stable today but platelets down to 80's again. DIC panel positive. Bleeding scan was not done due to respiratory distress and needs for continuous BiPAP, she is now intubated and improving, is still needed will discuss with GI. No signs of acute bleeding so far however patient does have positive fecal occult blood. Appreciate GI consult, patient and her son declined EGD prior. Appreciate recommendations of Dr Hannah, may still needs CT guided drainage of 2nd pseudocyst by IR, however patient now with hemodynamic instability and intubated, likely also coagulopathic from a septic state/DIC not a candidate for IR procedure yet. 5. Hypotension/septic shock Based on records patient has been actually put on midodrine 5 mg p.o. tid due to ongoing hypotension even at discharge from [place] at [place], Now the patient intubated, and septic with candidemia with Norbert glabrata, continue Levophed for blood pressure support, we have been able to titrate down as patient improved a little but still critical. Responding to albumin and IV fluids of note she still getting Midodrine per OGT Continue current antibiotics per ID management. Within normal lactic acid as of yet Prognosis poor and still guarded with additional decline over the past couple of days. 6. Acute kidney injury, in setting of septic shock and ongoing candidemia. Urine output picked up some and renal function has improved while getting to daily boluses of albumin. Patient with more anasarca noted, plan to give 3 doses of albumin today and low-dose Lasix. Follow-up renal function and urine output. Continue D5NS and also repeating albumin bolus today. Anasarca is noted that the patient needs intravascular volume repletion with IV fluids and occasional albumin boluses to try to preserve her renal function as much as possible Norbert glabrata positive urine culture last week, Elder catheter has been changed and repeat Urine cx negative. 7. Hyponatremia, Nutrition: Resolved, No tube feeding per GI so TPN resumed x 4 days through new central line in place. Appreciate nephrology assistance from Dr. Partida 8. Sinus Tachycardia: Per report from [facility] patient has sinus tachycardia. Resolved as patient in less distress currently after intubation and sedation. 9. Venous thromboembolism with episode of DVT, status post IVC filter. Repeat Doppler negative for DVT 10. Mild coagulopathy: PTT wnl, Vitamin K and FFP as needed for INR 1.8 but to be noted patient with VTE, s/p IVC filter. Current coagulopathy likely related to DIC. Vitamin K to be given again today, INR to be monitored. 11. Hyperbilirubinemia, primarily direct, also slight elevation of alkaline phosphatase, concerns for obstructive process/biliary stent Dr Hill will discuss stent change with Son. Liver ultrasound showing pancreatic pseudocyst, GI following and will repeat CAT scan of the abdomen and pelvis when patient hemodynamically stable and re- address with Surgery Prophylaxis: Protonix for GI prophylaxis, SCDs and status post IVC filter for DVT prophylaxis Disposition: ICU now, intubated on mechanical ventilation , attempted repeat thoracentesis right pleural effusion with very minimal output. Now with fungemia Unfortunately patient has declined over the past 2 days again with signs of active septic picture and septic shock, new source may be cholangitis based on the current clinical picture, gastroenterology to discuss with son possible need for ERCP and stent change. The DPOA, Jesus Muller, this morning, again talking to me seems to be more receptive to medical recommendations, he was able to even repeat information that is given to him showing that he was understanding information given again this time. Full code. Subjective 24 Hr Interval Summary Free Text/Dictation Patient unfortunately declining over the past couple of days, hypotensive overnight requiring second pressor Eric-Synephrine in addition of Levophed. Decreased urine output again inpatient third spacing, she will be receiving albumin today with a touch of Lasix. Also repeating CAT scan of the abdomen and pelvis. I have updated the son, Jesus, he is aware of the pending studies, he also will need to talk with gastroenterology as patient may have obstruction of the biliary stent causing cholangitis picture. He has expressed acknowledgment that he will need to discuss gastroenterology procedures with the plastics nurse. He has been reasonable this morning and did defer to the physicians for important decision-making, he did voice that he understands that his mother is critically ill and that we are doing everything we can for her. Appreciate Dr. Bhakta's involvement with this patient's care and psychosocial environment especially when he comes to the DPOA and son Jesus who has been difficult at times. Exam/Review of Systems Vital Signs Vitals Vital Signs Date Time Temp Pulse Resp B/P Pulse Ox O2 Delivery O2 Flow Rate FiO2 03/11/17 09:00 98 105/68 99 Mechanical Ventilator 03/11/17 08:00 97.6 03/11/17 05:27 16 30 Intake and Output 03/10/17 03/10/17 03/11/17 15:00 23:00 07:00 Intake Total 854.67 ml 1241.36 ml 1256.77 ml Output Total 72 ml 73 ml 130 ml Balance 782.67 ml 1168.36 ml 1126.77 ml Exam Constitutional: frail, other (Response to voice by just moving her head, jaundiced) Respiratory: diminished breath sounds (Bases bilaterally) Cardiovascular: nl pulses, regular rate and rhythm Gastrointestinal: ascites, other (Significant anasarca and third spacing), soft Musculoskeletal: swelling (Anasarca) Neurological: lethargic, other (Decreased responsiveness) Results Result Diagram: 03/11/17 0500 03/11/17 0500 Results 24 hrs Laboratory Tests Test 03/10/17 12:52 03/10/17 13:43 03/10/17 15:43 03/10/17 18:00 Bedside Glucose 70 71 Urine Color INES Urine Clarity CLOUDY A Urine pH 5.0 Urine Specific [place] 1.016 Urine Ketones NEGATIVE Urine Nitrite NEGATIVE Urine Bilirubin 1+ H Urine Urobilinogen 1+ H Urine Leukocyte Esterase TRACE A Urine Microscopic RBC 6 H Urine Microscopic WBC 8 H Urine Squamous Epithelial Cells FEW Urine Bacteria FEW A Urine Hemoglobin 2+ H Urine Glucose NEGATIVE Urine Total Protein 1+ H Stool Occult Blood POSITIVE Test 03/10/17 18:27 03/10/17 20:13 03/11/17 00:30 03/11/17 01:12 Bedside Glucose 71 77 87 Vancomycin Level Trough 15.0 Test 03/11/17 05:00 03/11/17 05:15 03/11/17 08:33 White Blood Count 17.2 H Red Blood Count 3.66 L Hemoglobin 10.3 L Hematocrit 31.1 L Mean Corpuscular Volume 85.0 Mean Corpuscular Hemoglobin 28.1 L Mean Corpuscular Hemoglobin Concent 33.1 Red Cell Distribution Width 19.7 H Platelet Count 81 L Mean Platelet Volume Neutrophils % 71.0 Lymphocytes % 21.4 Monocytes % 4.3 Eosinophils % 1.8 Basophils % 0.5 Nucleated Red Blood Cells % 0.1 H Neutrophils # 12.2 H Lymphocytes # 3.7 H Monocytes # 0.7 Eosinophils # 0.3 Basophils # 0.1 Nucleated Red Blood Cells # 0.0 Prothrombin Time 21.0 H Prothrombin Time Ratio 1.6 INR International Normalized Ratio 1.80 Activated Partial Thromboplast Time 50.7 H Sodium Level 138 Potassium Level 4.1 Chloride Level 109 Carbon Dioxide Level 18 L Anion Gap 15 Blood Urea Nitrogen 25 H Creatinine 0.86 Glucose Level 107 Calcium Level 9.2 Phosphorus Level 4.1 Magnesium Level 1.8 Total Bilirubin 7.3 H Direct Bilirubin 5.70 H Indirect Bilirubin 1.6 H Aspartate Amino Transf (AST/SGOT) 67 H Alanine Aminotransferase (ALT/SGPT) 31 Alkaline Phosphatase 419 H Total Protein 6.0 L Albumin 1.8 L Globulin 4.20 H Albumin/Globulin Ratio 0.42 Bedside Glucose 104 71 Medications Medications Current Medications Ondansetron HCl (Zofran Inj) 4 mg Q6H PRN IV NAUSEA AND/OR VOMITING Last administered on 02/13/17 00:36; Admin Dose 4 MG; Start 02/11/17 at 10:00 Acetaminophen (Tylenol Tab) 650 mg Q6H PRN PO PAIN LEVEL 1-3 OR FEVER Last administered on 02/25/17 19:51; Admin Dose 650 MG; Start 02/11/17 at 10:00 Docusate Sodium (Colace) 100 mg Q12H PRN PO CONSTIPATION; Start 02/11/17 at 10: 00 Bisacodyl (Dulcolax Supp) 10 mg DAILY PRN CA CONSTIPATION; Start 02/11/17 at 10 :00 Miscellaneous Information (Pending Santyl Order For Wound Care) This patient prado... PRN PRN XX WOUND CARE; Start 02/11/17 at 19:00 Collagenase (Santyl) 1 applic DAILY TOP Last administered on 03/11/17 08:27; Admin Dose 1 APPLIC; Start 02/12/17 at 13:30 Diphenhydramine HCl (Benadryl) 25 mg Q6H PRN IV ITCHING Last administered on 18:22; Admin Dose 25 MG; Start 02/12/17 at 14:00 Alprazolam (Xanax) 0.25 mg Q12H PRN PO ANXIETY Last administered on 03/10/17 07 :58; Admin Dose 0.25 MG; Start 02/19/17 at 14:00 Pantoprazole (Protonix Iv) 40 mg DAILY@06 IV Last administered on 03/11/17 05: 57; Admin Dose 40 MG; Start 02/23/17 at 06:00 Midodrine (Proamatine) 5 mg TID PO Last administered on 03/11/17 08:25; Admin Dose 5 MG; Start 02/23/17 at 13:30 Lorazepam (Ativan) 0.5 mg Q8H PRN IV AGITATION/ANXIETY Last administered on 03/08 05:03; Admin Dose 0.5 MG; Start 02/23/17 at 13:30 Miscellaneous Information DAILY XX Last administered on 03/11/17 08:27; Admin Dose 1 EA; Start 02/25/17 at 09:00 Midazolam HCl 50 ml @ 1 mls/hr TITRATE IV Last administered on 03/09/17 11:30; Admin Dose 2 MLS/HR; Start 02/25/17 at 10:00 Fentanyl 100 ml @ 2.5 mls/hr TITRATE IV Last administered on 02/25/17 10:43; Admin Dose 2.5 MLS/HR; Start 02/25/17 at 10:00 Norepinephrine 32 mg/Dextrose 500 ml @ 0 mls/hr TITRATE IV Last administered on 03/11/17 01:07; Admin Dose 28.12 MLS/HR; Start 02/28/17 at 11:30 Phenylephrine HCl 80 mg/Dextrose 500 ml @ 0 mls/hr TITRATE IV Last administered on 03/10/17 23:17; Admin Dose 15 MLS/HR; Start 02/28/17 at 11:30 Vancomycin HCl 750 mg/Dextrose/ Water 150 ml @ 75 mls/hr Q48H IVPB Last administered on 03/11/17 01:42; Admin Dose 75 MLS/HR; Start 03/03/17 at 01:00 Dextrose/Sodium Chloride (D5-NS) 1,000 ml @ 60 mls/hr [id number] IV Last administered on 03/10/17 20:17; Admin Dose 60 MLS/HR; Start 03/02/17 at 12:30 Miscellaneous Information 1 ea NOTE XX ; Start 03/02/17 at 12:30 Glucose (Glutose) 15 gm Q15M PRN PO DECREASED GLUCOSE; Start 03/02/17 at 12:30 Glucose (Glutose) 22.5 gm Q15M PRN PO DECREASED GLUCOSE; Start 03/02/17 at 12: 30 Dextrose (D50w Syringe) 25 ml Q15M PRN IV DECREASED GLUCOSE Last administered on 03/02/17 12:18; Admin Dose 25 ML; Start 03/02/17 at 12:30 Dextrose (D50w Syringe) 50 ml Q15M PRN IV DECREASED GLUCOSE; Start 03/02/17 at 12:30 Glucagon (Glucagen) 1 mg Q15M PRN IM DECREASED GLUCOSE; Start 03/02/17 at 12:30 Glucose (Glutose) 15 gm Q15M PRN BUCCAL DECREASED GLUCOSE; Start 03/02/17 at 12 :30 Diagnostic Test (Pha) 1 ea 1 ea Q4 XX Last administered on 03/11/17 08:27; Admin Dose 1 EA; Start 03/04/17 at 09:00 Caspofungin 35 mg/ Sodium Chloride 250 ml @ 250 mls/hr Q24H IVPB Last administered on 03/10/17 15:22; Admin Dose 250 MLS/HR; Start 03/04/17 at 15:00 Total Parenteral Nutrition (Tpn) 1,000 ml @ 40 mls/hr Q24H IV Last administered on 03/10/17 20:17; Admin Dose 40 MLS/HR; Start 03/06/17 at 20:00 Sodium Hypochlorite (Dakin'S (1/4 Strength)) 1 applic DAILY IRR Last administered on 03/11/17 08:26; Admin Dose 1 APPLIC; Start 03/07/17 at 09:00 Morphine Sulfate 2 mg 2 mg Q4H PRN IV PAIN LEVEL 7-10 Last administered on 18:23; Admin Dose 2 MG; Start 03/07/17 at 10:00 Albumin Human 50 ml @ 100 mls/hr Q8H IV ; Start 03/11/17 at 10:00; Stop at 02:29 Phytonadione/ Dextrose (Vitamin K/D5W) 51 ml @ 102 mls/hr ONCE ONCE IVPB ; Start 03/11/17 at 11:00; Stop 03/11/17 at 11:29 Furosemide (Lasix) 20 mg DAILY IV ; Start 03/11/17 at 10:00 BONIFACIO COWART Mar 11, 2017 10:10
[2017-03-11] MEDS: FUROSEMIDE 20 MG INJ IV SCH (10:21)
[2017-03-11] MEDS: ALBUMIN HUMAN 25% 50 ML IV SCH ×2 (10:21→18:06)
[2017-03-11] MEDS ORDERED: PHYTONADIONE 10 MG in DEXTROSE 5% 50 ML IVPB ONE (11:00)
--- NOTE | 2017-03-11 11:24 | PN ---
Date/Time of Note Date/Time of Note DATE: 03/11/17 TIME: 11:23 Assessment/Plan Lines/Catheters IV Catheter Type (from Nrsg): Central Line Elder in Place (from Nrsg): Yes Assessment/Plan Chief Complaint/Hosp Course Additional Assessment/Plan Respiratory failure Pancreatitis Infected PICC line Patient will be needing a central line I had a discussion with the son today He is in agreement to proceed with a central line Response complications alternative therapies explained to the patient's son All questions answered SP central line placement, site clean will continue supp care Problems: Subjective 24 Hr Interval Summary Constitutional: improved Pain Control: mild Exam/Review of Systems Vital Signs Vitals Vital Signs Date Time Temp Pulse Resp B/P Pulse Ox O2 Delivery O2 Flow Rate FiO2 03/11/17 09:00 98 105/68 99 Mechanical Ventilator 03/11/17 08:00 97.6 03/11/17 05:27 16 30 Intake and Output 03/10/17 03/10/17 03/11/17 15:00 23:00 07:00 Intake Total 854.67 ml 1241.36 ml 1256.77 ml Output Total 72 ml 73 ml 130 ml Balance 782.67 ml 1168.36 ml 1126.77 ml Exam Neck: non-tender, supple Respiratory: clear to auscultation, normal air movement Cardiovascular: nl pulses, regular rate and rhythm Gastrointestinal: nl liver, spleen, non-tender, soft Results Result Diagram: 03/11/17 0500 03/11/17 0500 LUIZ SEQUEIRA MD Mar 11, 2017 11:24
[2017-03-11] MEDS: LORAZEPAM 2 MG INJ IV PRN (13:11)
[2017-03-11] MEDS: morphine 2 MG INJ IV PRN (13:11)
[2017-03-11] MEDS: CASPOFUNGIN 35 MG in SOD CHLORIDE 0.9% 250 ML IVPB SCH (15:35)
--- NOTE | 2017-03-11 15:36 | CONS ---
Date/Time of Note Date/Time of Note DATE: 03/11/17 TIME: 15:35 Consult Date/Type/Reason Admit Date/Time Feb 11, 2017 at 05:28 Initial Consult Date 02/21/17 Type of Consultation: Pulmonary Ordering Provider: BONIFACIO COWART Subjective Remains intubated on mechanical ventilation now requiring 2 vasopressors. Objective Vital Signs Date Time Temp Pulse Resp B/P Pulse Ox O2 Delivery O2 Flow Rate FiO2 03/11/17 14:00 107 96/56 99 03/11/17 13:30 28 30 03/11/17 12:00 98.0 03/11/17 09:00 Mechanical Ventilator Intake and Output 03/10/17 03/10/17 03/11/17 15:00 23:00 07:00 Intake Total 854.67 ml 1241.36 ml 1256.77 ml Output Total 72 ml 73 ml 130 ml Balance 782.67 ml 1168.36 ml 1126.77 ml Exam PHYSICAL EXAMINATION GENERAL: Elderly lady orally intubated on mechanical ventilation VITAL SIGNS: see below. HEENT: Pupils equal, round, and reactive to light. CARDIAC: S1, S2, 1/6 systolic ejection murmur CHEST: Diminished air entry bilaterally. ABDOMEN: Mildly distended. Mild tenderness to palpation. Diminished bowel sounds. EXTREMITIES: No cyanosis, clubbing edema +1 NEUROLOGIC: Generalized weakness Results/Medications Result Diagram: 03/11/17 0500 03/11/17 0500 Results 24 hrs Laboratory Tests Test 03/10/17 15:43 03/10/17 18:00 03/10/17 18:27 03/10/17 20:13 Bedside Glucose 71 71 77 Stool Occult Blood POSITIVE Test 03/11/17 00:30 03/11/17 01:12 03/11/17 05:00 03/11/17 05:15 Vancomycin Level Trough 15.0 Bedside Glucose 87 104 White Blood Count 17.2 H Red Blood Count 3.66 L Hemoglobin 10.3 L Hematocrit 31.1 L Mean Corpuscular Volume 85.0 Mean Corpuscular Hemoglobin 28.1 L Mean Corpuscular Hemoglobin Concent 33.1 Red Cell Distribution Width 19.7 H Platelet Count 81 L Mean Platelet Volume Neutrophils % 71.0 Lymphocytes % 21.4 Monocytes % 4.3 Eosinophils % 1.8 Basophils % 0.5 Nucleated Red Blood Cells % 0.1 H Neutrophils # 12.2 H Lymphocytes # 3.7 H Monocytes # 0.7 Eosinophils # 0.3 Basophils # 0.1 Nucleated Red Blood Cells # 0.0 Prothrombin Time 21.0 H Prothrombin Time Ratio 1.6 INR International Normalized Ratio 1.80 Activated Partial Thromboplast Time 50.7 H Sodium Level 138 Potassium Level 4.1 Chloride Level 109 Carbon Dioxide Level 18 L Anion Gap 15 Blood Urea Nitrogen 25 H Creatinine 0.86 Glucose Level 107 Calcium Level 9.2 Phosphorus Level 4.1 Magnesium Level 1.8 Total Bilirubin 7.3 H Direct Bilirubin 5.70 H Indirect Bilirubin 1.6 H Aspartate Amino Transf (AST/SGOT) 67 H Alanine Aminotransferase (ALT/SGPT) 31 Alkaline Phosphatase 419 H Total Protein 6.0 L Albumin 1.8 L Globulin 4.20 H Albumin/Globulin Ratio 0.42 Test 03/11/17 08:33 03/11/17 13:07 Bedside Glucose 71 107 Medications Current Medications Ondansetron HCl (Zofran Inj) 4 mg Q6H PRN IV NAUSEA AND/OR VOMITING Last administered on 02/13/17 00:36; Admin Dose 4 MG; Start 02/11/17 at 10:00 Acetaminophen (Tylenol Tab) 650 mg Q6H PRN PO PAIN LEVEL 1-3 OR FEVER Last administered on 02/25/17 19:51; Admin Dose 650 MG; Start 02/11/17 at 10:00 Docusate Sodium (Colace) 100 mg Q12H PRN PO CONSTIPATION; Start 02/11/17 at 10: 00 Bisacodyl (Dulcolax Supp) [address] CONSTIPATION; Start 02/11/17 at 10 :00 Miscellaneous Information (Pending Santyl Order For Wound Care) This patient prado... PRN PRN XX WOUND CARE; Start 02/11/17 at 19:00 Collagenase (Santyl) 1 applic DAILY TOP Last administered on 03/11/17 08:27; Admin Dose 1 APPLIC; Start 02/12/17 at 13:30 Diphenhydramine HCl (Benadryl) 25 mg Q6H PRN IV ITCHING Last administered on 18:22; Admin Dose 25 MG; Start 02/12/17 at 14:00 Alprazolam (Xanax) 0.25 mg Q12H PRN PO ANXIETY Last administered on 03/10/17 07 :58; Admin Dose 0.25 MG; Start 02/19/17 at 14:00 Pantoprazole (Protonix Iv) 40 mg DAILY@06 IV Last administered on 03/11/17 05: 57; Admin Dose 40 MG; Start 02/23/17 at 06:00 Midodrine (Proamatine) 5 mg TID PO Last administered on 03/11/17 11:37; Admin Dose 5 MG; Start 02/23/17 at 13:30 Lorazepam (Ativan) 0.5 mg Q8H PRN IV AGITATION/ANXIETY Last administered on 03/11 13:11; Admin Dose 0.5 MG; Start 02/23/17 at 13:30 Miscellaneous Information DAILY XX Last administered on 03/11/17 08:27; Admin Dose 1 EA; Start 02/25/17 at 09:00 Midazolam HCl 50 ml @ 1 mls/hr TITRATE IV Last administered on 03/09/17 11:30; Admin Dose 2 MLS/HR; Start 02/25/17 at 10:00 Fentanyl 100 ml @ 2.5 mls/hr TITRATE IV Last administered on 02/25/17 10:43; Admin Dose 2.5 MLS/HR; Start 02/25/17 at 10:00 Norepinephrine 32 mg/Dextrose 500 ml @ 0 mls/hr TITRATE IV Last administered on 03/11/17 01:07; Admin Dose 28.12 MLS/HR; Start 02/28/17 at 11:30 Phenylephrine HCl 80 mg/Dextrose 500 ml @ 0 mls/hr TITRATE IV Last administered on 03/10/17 23:17; Admin Dose 15 MLS/HR; Start 02/28/17 at 11:30 Vancomycin HCl 750 mg/Dextrose/ Water 150 ml @ 75 mls/hr Q48H IVPB Last administered on 03/11/17 01:42; Admin Dose 75 MLS/HR; Start 03/03/17 at 01:00 Dextrose/Sodium Chloride (D5-NS) 1,000 ml @ 60 mls/hr [id number] IV Last administered on 03/10/17 20:17; Admin Dose 60 MLS/HR; Start 03/02/17 at 12:30 Miscellaneous Information 1 ea NOTE XX ; Start 03/02/17 at 12:30 Glucose (Glutose) 15 gm Q15M PRN PO DECREASED GLUCOSE; Start 03/02/17 at 12:30 Glucose (Glutose) 22.5 gm Q15M PRN PO DECREASED GLUCOSE; Start 03/02/17 at 12: 30 Dextrose (D50w Syringe) 25 ml Q15M PRN IV DECREASED GLUCOSE Last administered on 03/02/17 12:18; Admin Dose 25 ML; Start 03/02/17 at 12:30 Dextrose (D50w Syringe) 50 ml Q15M PRN IV DECREASED GLUCOSE; Start 03/02/17 at 12:30 Glucagon (Glucagen) 1 mg Q15M PRN IM DECREASED GLUCOSE; Start 03/02/17 at 12:30 Glucose (Glutose) 15 gm Q15M PRN BUCCAL DECREASED GLUCOSE; Start 03/02/17 at 12 :30 Diagnostic Test (Pha) 1 ea 1 ea Q4 XX Last administered on 03/11/17 13:11; Admin Dose 1 EA; Start 03/04/17 at 09:00 Caspofungin 35 mg/ Sodium Chloride 250 ml @ 250 mls/hr Q24H IVPB Last administered on 03/10/17 15:22; Admin Dose 250 MLS/HR; Start 03/04/17 at 15:00 Total Parenteral Nutrition (Tpn) 1,000 ml @ 40 mls/hr Q24H IV Last administered on 03/10/17 20:17; Admin Dose 40 MLS/HR; Start 03/06/17 at 20:00 Sodium Hypochlorite (Dakin'S (1/4 Strength)) 1 applic DAILY IRR Last administered on 03/11/17 08:26; Admin Dose 1 APPLIC; Start 03/07/17 at 09:00 Morphine Sulfate 2 mg 2 mg Q4H PRN IV PAIN LEVEL 7-10 Last administered on 13:11; Admin Dose 2 MG; Start 03/07/17 at 10:00 Albumin Human (Albumin Human 25%) 50 ml @ 100 mls/hr Q8H IV Last administered on 03/11/17 10:21; Admin Dose 100 MLS/HR; Start 03/11/17 at 10:00; Stop 03/12/17 at 02:29 Furosemide (Lasix) 20 mg DAILY IV Last administered on 03/11/17t 10:21; Admin Dose 20 MG; Start 03/11/17 at 10:00 Assessment/Plan Chief Complaint/Hosp Course Additional Assessment/Plan IMP: 1. Vent Dependent Resp Failure 2. Fungemia, polymicrobial septic shock. 3. Pancreatitis possible obstructive jaundice. 4. AMS/Encephalopathy 5. Anemia 6. Concern for possible acute abdomen question ischemic bowel. RECS: 1. Vent support currently not weanable from mechanical ventilation secondary to complex medical issues and altered mental status. 2. Continue broad-spectrum antibiotics 3. Surgery recommendations. 4. Anti-fungals per ID 5. Palliative care recommendations. I had a long discussion with the patient's son at bedside today. Explained patient's condition which is grave and that she may not survive this admission. He is aware and understands. States he currently wishes to continue all measures however understands that she may not survive this admission. He expressed some frustration about her care at previous facility. 35 min cc time Problems: SLAVA MCBRIDE MD, [facility] Mar 11, 2017 15:36
--- NOTE | 2017-03-11 16:09 | PN ---
Date/Time of Note Date/Time of Note DATE: 03/11/17 TIME: 16:06 Assessment/Plan VTE Prophylaxis VTE Prophylaxis Intervention: contraindicated VTE Contraindication Reason: bleeding Lines/Catheters IV Catheter Type (from Nrs): Central Line Central line still needed: Yes Urinary Cath still in place: Yes Reason Cath still needed: urinary retention Assessment/Plan Assessment/Plan Sepsis * Acute respiratory failure management c/o pulmonary * Encephalopathy * Anemia/recurrent/probable GI bleeding * Refused EGD * Pancreatitis with Pancreatic pseudocyst/awaiting drainage * Coagulopathy * H/O tube cholecystostomy/biliary stent * Rule out stent occlusion Plan : * Continue present regimen * monitor hemoglobin and hematocrit daily and transfuse per protocol * further orders will depend on clinical course * case discussed with Dr Hill * The patient would benefit from endoscopic evaluation in ERCP with stent removal or replacement however this has been refused when the patient was in more stable condition at the present time she appears to be too unstable for invasive procedures Subjective 24 Hr Interval Summary Free Text/Dictation * Course reviewed with RN * Patient seen and examined * On pressors * liver enzymes trending upward Exam/Review of Systems Vital Signs Vitals Vital Signs Date Time Temp Pulse Resp B/P Pulse Ox O2 Delivery O2 Flow Rate FiO2 03/11/17 14:00 107 96/56 99 03/11/17 13:30 28 30 03/11/17 12:00 98.0 03/11/17 09:00 Mechanical Ventilator Intake and Output 03/10/17 03/10/17 03/11/17 15:00 23:00 07:00 Intake Total 854.67 ml 1241.36 ml 1256.77 ml Output Total 72 ml 73 ml 130 ml Balance 782.67 ml 1168.36 ml 1126.77 ml Exam ENMT: intubated Neck: non-tender, supple Respiratory: crackles/rales, diminished breath sounds Cardiovascular: other (tachycardic) Gastrointestinal: bowel sounds, soft Musculoskeletal: muscle weakness, swelling Extremities: edema, pitting pedal edema Neurological: lethargic Skin: nl turgor, rash or lesions Lymph: nl lymph nodes Results Result Diagram: 03/11/17 0500 03/11/17 0500 Results 24 hrs Laboratory Tests Test 03/10/17 18:00 03/10/17 18:27 03/10/17 20:13 03/11/17 00:30 Stool Occult Blood POSITIVE Bedside Glucose 71 77 Vancomycin Level Trough 15.0 Test 03/11/17 01:12 03/11/17 05:00 03/11/17 05:15 03/11/17 08:33 Bedside Glucose 87 104 71 White Blood Count 17.2 H Red Blood Count 3.66 L Hemoglobin 10.3 L Hematocrit 31.1 L Mean Corpuscular Volume 85.0 Mean Corpuscular Hemoglobin 28.1 L Mean Corpuscular Hemoglobin Concent 33.1 Red Cell Distribution Width 19.7 H Platelet Count 81 L Mean Platelet Volume Neutrophils % 71.0 Lymphocytes % 21.4 Monocytes % 4.3 Eosinophils % 1.8 Basophils % 0.5 Nucleated Red Blood Cells % 0.1 H Neutrophils # 12.2 H Lymphocytes # 3.7 H Monocytes # 0.7 Eosinophils # 0.3 Basophils # 0.1 Nucleated Red Blood Cells # 0.0 Prothrombin Time 21.0 H Prothrombin Time Ratio 1.6 INR International Normalized Ratio 1.80 Activated Partial Thromboplast Time 50.7 H Sodium Level 138 Potassium Level 4.1 Chloride Level 109 Carbon Dioxide Level 18 L Anion Gap 15 Blood Urea Nitrogen 25 H Creatinine 0.86 Glucose Level 107 Calcium Level 9.2 Phosphorus Level 4.1 Magnesium Level 1.8 Total Bilirubin 7.3 H Direct Bilirubin 5.70 H Indirect Bilirubin 1.6 H Aspartate Amino Transf (AST/SGOT) 67 H Alanine Aminotransferase (ALT/SGPT) 31 Alkaline Phosphatase 419 H Total Protein 6.0 L Albumin 1.8 L Globulin 4.20 H Albumin/Globulin Ratio 0.42 Test 03/11/17 13:07 Bedside Glucose 107 Medications Medications Current Medications Ondansetron HCl (Zofran Inj) 4 mg Q6H PRN IV NAUSEA AND/OR VOMITING Last administered on 02/13/17 00:36; Admin Dose 4 MG; Start 02/11/17 at 10:00 Acetaminophen (Tylenol Tab) 650 mg Q6H PRN PO PAIN LEVEL 1-3 OR FEVER Last administered on 02/25/17 19:51; Admin Dose 650 MG; Start 02/11/17 at 10:00 Docusate Sodium (Colace) 100 mg Q12H PRN PO CONSTIPATION; Start 02/11/17 at 10: 00 Bisacodyl (Dulcolax Supp) 10 mg DAILY PRN [place] CONSTIPATION; Start 02/11/17 at 10 :00 Miscellaneous Information (Pending Santyl Order For Wound Care) This patient prado... PRN PRN XX WOUND CARE; Start 02/11/17 at 19:00 Collagenase (Santyl) 1 applic DAILY TOP Last administered on 03/11/17 08:27; Admin Dose 1 APPLIC; Start 02/12/17 at 13:30 Diphenhydramine HCl (Benadryl) 25 mg Q6H PRN IV ITCHING Last administered on 18:22; Admin Dose 25 MG; Start 02/12/17 at 14:00 Alprazolam (Xanax) 0.25 mg Q12H PRN PO ANXIETY Last administered on 03/10/17 07 :58; Admin Dose 0.25 MG; Start 02/19/17 at 14:00 Pantoprazole (Protonix Iv) 40 mg DAILY@06 IV Last administered on 03/11/17 05: 57; Admin Dose 40 MG; Start 02/23/17 at 06:00 Midodrine (Proamatine) 5 mg TID PO Last administered on 03/11/17 11:37; Admin Dose 5 MG; Start 02/23/17 at 13:30 Lorazepam (Ativan) 0.5 mg Q8H PRN IV AGITATION/ANXIETY Last administered on 03/11 13:11; Admin Dose 0.5 MG; Start 02/23/17 at 13:30 Miscellaneous Information DAILY XX Last administered on 03/11/17 08:27; Admin Dose 1 EA; Start 02/25/17 at 09:00 Midazolam HCl 50 ml @ 1 mls/hr TITRATE IV Last administered on 03/09/17 11:30; Admin Dose 2 MLS/HR; Start 02/25/17 at 10:00 Fentanyl 100 ml @ 2.5 mls/hr TITRATE IV Last administered on 02/25/17 10:43; Admin Dose 2.5 MLS/HR; Start 02/25/17 at 10:00 Norepinephrine 32 mg/Dextrose 500 ml @ 0 mls/hr TITRATE IV Last administered on 03/11/17 01:07; Admin Dose 28.12 MLS/HR; Start 02/28/17 at 11:30 Phenylephrine HCl 80 mg/Dextrose 500 ml @ 0 mls/hr TITRATE IV Last administered on 03/10/17 23:17; Admin Dose 15 MLS/HR; Start 02/28/17 at 11:30 Vancomycin HCl 750 mg/Dextrose/ Water 150 ml @ 75 mls/hr Q48H IVPB Last administered on 03/11/17 01:42; Admin Dose 75 MLS/HR; Start 03/03/17 at 01:00 Dextrose/Sodium Chloride (D5-NS) 1,000 ml @ 60 mls/hr [id number] IV Last administered on 03/10/17 20:17; Admin Dose 60 MLS/HR; Start 03/02/17 at 12:30 Miscellaneous Information 1 ea NOTE XX ; Start 03/02/17 at 12:30 Glucose (Glutose) 15 gm Q15M PRN PO DECREASED GLUCOSE; Start 03/02/17 at 12:30 Glucose (Glutose) 22.5 gm Q15M PRN PO DECREASED GLUCOSE; Start 03/02/17 at 12: 30 Dextrose (D50w Syringe) 25 ml Q15M PRN IV DECREASED GLUCOSE Last administered on 03/02/17 12:18; Admin Dose 25 ML; Start 03/02/17 at 12:30 Dextrose (D50w Syringe) 50 ml Q15M PRN IV DECREASED GLUCOSE; Start 03/02/17 at 12:30 Glucagon (Glucagen) 1 mg Q15M PRN IM DECREASED GLUCOSE; Start 03/02/17 at 12:30 Glucose (Glutose) 15 gm Q15M PRN BUCCAL DECREASED GLUCOSE; Start 03/02/17 at 12 :30 Diagnostic Test (Pha) 1 ea 1 ea Q4 XX Last administered on 03/11/17 13:11; Admin Dose 1 EA; Start 03/04/17 at 09:00 Caspofungin 35 mg/ Sodium Chloride 250 ml @ 250 mls/hr Q24H IVPB Last administered on 03/11/17 15:35; Admin Dose 250 MLS/HR; Start 03/04/17 at 15:00 Total Parenteral Nutrition (Tpn) 1,000 ml @ 40 mls/hr Q24H IV Last administered on 03/10/17 20:17; Admin Dose 40 MLS/HR; Start 03/06/17 at 20:00 Sodium Hypochlorite (Dakin'S (1/4 Strength)) 1 applic DAILY IRR Last administered on 03/11/17 08:26; Admin Dose 1 APPLIC; Start 03/07/17 at 09:00 Morphine Sulfate 2 mg 2 mg Q4H PRN IV PAIN LEVEL 7-10 Last administered on 13:11; Admin Dose 2 MG; Start 03/07/17 at 10:00 Albumin Human (Albumin Human 25%) 50 ml @ 100 mls/hr Q8H IV Last administered on 03/11/17 10:21; Admin Dose 100 MLS/HR; Start 03/11/17 at 10:00; Stop 03/12/17 at 02:29 Furosemide (Lasix) 20 mg DAILY IV Last administered on 03/11/17 10:21; Admin Dose 20 MG; Start 03/11/17 at 10:00 LUZMARIA SPAIN NP Mar 11, 2017 16:09
[2017-03-11] MEDS: TPN 1,000 ML IV SCH (21:06)
[2017-03-11] MEDS: PHENYLephrine 80 MG in DEXTROSE 5% 492 ML IV SCH (23:55)
[2017-03-12] VITALS (98 sets, daily range): BP systolic 62–125; BP diastolic 36–99; PULSE 78–121; RESP 0–29
[2017-03-12] MEDS: ACCU-CHEK XX SCH ×6 (00:54→21:00)
[2017-03-12] MEDS: IPRATROPIUM (HFA) 12.9 GM INHALER INH SCH ×3 (01:03→16:44)
[2017-03-12] MEDS: ALBUTEROL 18 GM INHALER INH SCH ×3 (01:04→16:44)
[2017-03-12] MEDS: ALBUMIN HUMAN 25% 50 ML IV SCH (01:11)
[2017-03-12] MEDS: DEXTROSE 5%-0.9% NACL 1,000 ML IV SCH (02:40)
[2017-03-12] MEDS: PANTOPRAZOLE 40 MG INJ IV SCH (05:49)
[2017-03-12 06:05] LABS: WHITE BLOOD COUNT 14.1 10^3/ul (4.8-10.8)
[2017-03-12 06:06] LABS: ABNORMAL IP MESSAGE 1; BASOPHIL # 0.1 10^3/ul (0.0-0.1); BASOPHILS % 0.5 % (0.0-2.0); EOSINOPHILS # 0.2 10^3/ul (0.0-0.5); EOSINOPHILS % 1.1 % (0.0-7.0); HEMATOCRIT 22.9 % (37.0-47.0); HEMOGLOBIN 9.4 g/dl (12.0-16.0); LYMPHOCYTES # 2.3 10^3/ul (0.8-2.9); LYMPHOCYTES % 16.4 % (15.0-51.0); MEAN CORPUSCULAR VOLUME 92.3 fl (82.0-101.0); MONOCYTE # 0.7 10^3/ul (0.3-0.9); NEUTROPHIL # 10.7 10^3/ul (1.6-7.5); NEUTROPHILS % 75.9 % (39.0-77.0); NUCLEATED RED BLOOD CELLS% 0.1 /100WBC (0.0-0.0); PLATELET COUNT 69 10^3/UL (140-415); RED BLOOD COUNT 2.48 10^6/ul (4.20-5.40); RED CELL DISTRIBUTION WIDTH 21.9 % (11.5-14.5)
[2017-03-12 06:17] LABS: MAGNESIUM 1.6 mg/dl (1.7-2.5); PHOSPHORUS 4.3 mg/dl (2.5-4.9)
[2017-03-12 06:21] LABS: ALBUMIN/GLOBULIN RATIO 0.5; BILIRUBIN,DIRECT 6.9 mg/dl (0.00-0.20); BILIRUBIN,TOTAL 8.9 mg/dl (0.2-1.3); CALCIUM 9.4 mg/dl (8.4-10.2); CREATININE 0.91 mg/dl (0.44-1.00); POTASSIUM 3.7 mmol/L (3.5-5.1)
[2017-03-12 06:23] LABS: INR 1.78; PROTIME 20.9 Sec (12.2-14.2); PT RATIO 1.6
[2017-03-12 06:24] LABS: PARTIAL THROMBOPLASTIN TIME 48.6 Sec (25.0-35.0)
[2017-03-12 06:26] LABS: MEAN CORPUSCULAR HEMOGLOBIN 37.9 pg (29.0-33.0); POSITIVE DIFF @See below
[2017-03-12] MEDS: ALPRAZOLAM 0.25 MG TAB PO PRN (08:30)
[2017-03-12] MEDS: MIDODRINE 5 MG TAB PO SCH ×2 (08:30→12:25)
[2017-03-12] MEDS: SODIUM HYPOCHLORITE 0.125% 473 ML BTL IRR SCH (08:36)
[2017-03-12] MEDS: FUROSEMIDE 20 MG INJ IV SCH (08:37)
[2017-03-12] MEDS: BALSAM PERU/CASTOR OIL 60 GM TUBE TOP SCH (08:37)
[2017-03-12] MEDS: COLLAGENASE 30 GM TUBE TOP SCH (08:37)
[2017-03-12] MEDS: [UNRECOGNIZED DRUG - REMARK] XX SCH (08:41)
[2017-03-12] MEDS: LORAZEPAM 2 MG INJ IV PRN ×2 (09:23→16:01)
--- NOTE | 2017-03-12 10:02 | CONS ---
Date/Time of Note Date/Time of Note DATE: 03/12/17 TIME: 10:00 Consult Date/Type/Reason Admit Date/Time Feb 11, 2017 at 05:28 Initial Consult Date 02/21/17 Type of Consultation: Pulmonary Ordering Provider: BONIFACIO COWART Subjective Patient continues multiple vasopressors. Currently somnolent on mechanical ventilation. Objective Vital Signs Date Time Temp Pulse Resp B/P Pulse Ox O2 Delivery O2 Flow Rate FiO2 03/12/17 09:30 104 102/52 99 03/12/17 09:15 28 30 03/12/17 08:00 97.8 03/11/17 09:00 Mechanical Ventilator Intake and Output 03/11/17 03/11/17 03/12/17 15:00 23:00 07:00 Intake Total 1323.16 ml 849.72 ml 398 ml Output Total 545 ml 470 ml 635 ml Balance 778.16 ml 379.72 ml -237 ml Exam PHYSICAL EXAMINATION GENERAL: Elderly lady orally intubated on mechanical ventilation VITAL SIGNS: see below. HEENT: Pupils equal, round, and reactive to light. CARDIAC: S1, S2, 1/6 systolic ejection murmur CHEST: Diminished air entry bilaterally. ABDOMEN: Mildly distended. Mild tenderness to palpation. Diminished bowel sounds. EXTREMITIES: No cyanosis, clubbing edema +1 NEUROLOGIC: Generalized weakness Results/Medications Result Diagram: 03/12/17 0541 03/12/17 0541 Results 24 hrs Laboratory Tests Test 03/11/17 13:07 03/11/17 18:09 03/11/17 21:04 03/12/17 00:47 Bedside Glucose 107 102 92 95 Test 03/12/17 05:41 03/12/17 05:44 03/12/17 08:44 White Blood Count 14.1 H Red Blood Count 2.48 #L Hemoglobin 9.4 L Hematocrit 22.9 #L Mean Corpuscular Volume 92.3 Mean Corpuscular Hemoglobin 37.9 #H Mean Corpuscular Hemoglobin Concent 41.0 #H Red Cell Distribution Width 21.9 H Platelet Count 69 L Mean Platelet Volume Neutrophils % 75.9 Lymphocytes % 16.4 Monocytes % 5.0 Eosinophils % 1.1 Basophils % 0.5 Nucleated Red Blood Cells % 0.1 H Neutrophils # 10.7 H Lymphocytes # 2.3 Monocytes # 0.7 Eosinophils # 0.2 Basophils # 0.1 Nucleated Red Blood Cells # 0.0 Prothrombin Time 20.9 H Prothrombin Time Ratio 1.6 INR International Normalized Ratio 1.78 Activated Partial Thromboplast Time 48.6 H Sodium Level 138 Potassium Level 3.7 Chloride Level 108 Carbon Dioxide Level 16 L Anion Gap 18 H Blood Urea Nitrogen 23 H Creatinine 0.91 Glucose Level 93 Lactic Acid Level 2.2 *H Calcium Level 9.4 Phosphorus Level 4.3 Magnesium Level 1.6 L Total Bilirubin 8.9 H Direct Bilirubin 6.90 H Indirect Bilirubin 2.0 H Aspartate Amino Transf (AST/SGOT) 69 H Alanine Aminotransferase (ALT/SGPT) 33 Alkaline Phosphatase 397 H Total Protein 6.0 L Albumin 2.0 L Globulin 4.00 H Albumin/Globulin Ratio 0.50 Bedside Glucose 96 102 Medications Current Medications Ondansetron HCl (Zofran Inj) 4 mg Q6H PRN IV NAUSEA AND/OR VOMITING Last administered on 02/13/17 00:36; Admin Dose 4 MG; Start 02/11/17 at 10:00 Acetaminophen (Tylenol Tab) 650 mg Q6H PRN PO PAIN LEVEL 1-3 OR FEVER Last administered on 02/25/17 19:51; Admin Dose 650 MG; Start 02/11/17 at 10:00 Docusate Sodium (Colace) 100 mg Q12H PRN PO CONSTIPATION; Start 02/11/17 at 10: 00 Bisacodyl (Dulcolax Supp) 10 mg DAILY PRN [place] CONSTIPATION; Start 02/11/17 at 10 :00 Miscellaneous Information (Pending Santyl Order For Wound Care) This patient prado... PRN PRN XX WOUND CARE; Start 02/11/17 at 19:00 Collagenase (Santyl) 1 applic DAILY TOP Last administered on 03/12/17 08:37; Admin Dose 1 APPLIC; Start 02/12/17 at 13:30 Diphenhydramine HCl (Benadryl) 25 mg Q6H PRN IV ITCHING Last administered on 18:22; Admin Dose 25 MG; Start 02/12/17 at 14:00 Alprazolam (Xanax) 0.25 mg Q12H PRN PO ANXIETY Last administered on 03/12/17 08:30; Admin Dose 0.25 MG; Start 02/19/17 at 14:00 Pantoprazole (Protonix Iv) 40 mg DAILY@06 IV Last administered on 03/12/17 05: 49; Admin Dose 40 MG; Start 02/23/17 at 06:00 Midodrine (Proamatine) 5 mg TID PO Last administered on 03/12/17 08:30; Admin Dose 5 MG; Start 02/23/17 at 13:30 Lorazepam (Ativan) 0.5 mg Q8H PRN IV AGITATION/ANXIETY Last administered on 09:23; Admin Dose 0.5 MG; Start 02/23/17 at 13:30 Miscellaneous Information DAILY XX Last administered on 03/12/17 08:41; Admin Dose 1 EA; Start 02/25/17 at 09:00 Midazolam HCl 50 ml @ 1 mls/hr TITRATE IV Last administered on 03/09/17 11:30; Admin Dose 2 MLS/HR; Start 02/25/17 at 10:00 Fentanyl 100 ml @ 2.5 mls/hr TITRATE IV Last administered on 02/25/17 10:43; Admin Dose 2.5 MLS/HR; Start 02/25/17 at 10:00 Norepinephrine 32 mg/Dextrose 500 ml @ 0 mls/hr TITRATE IV Last administered on 03/11/17 22:33; Admin Dose 28.12 MLS/HR; Start 02/28/17 at 11:30 Phenylephrine HCl 80 mg/Dextrose 500 ml @ 0 mls/hr TITRATE IV Last administered on 03/11/17 23:55; Admin Dose 30 MLS/HR; Start 02/28/17 at 11:30 Vancomycin HCl 750 mg/Dextrose/ Water 150 ml @ 75 mls/hr Q48H IVPB Last administered on 03/11/17 01:42; Admin Dose 75 MLS/HR; Start 03/03/17 at 01:00 Dextrose/Sodium Chloride (D5-NS) 1,000 ml @ 60 mls/hr [id number] IV Last administered on 03/12/17 02:40; Admin Dose 60 MLS/HR; Start 03/02/17 at 12:30 Miscellaneous Information 1 ea NOTE XX ; Start 03/02/17 at 12:30 Glucose (Glutose) 15 gm Q15M PRN PO DECREASED GLUCOSE; Start 03/02/17 at 12:30 Glucose (Glutose) 22.5 gm Q15M PRN PO DECREASED GLUCOSE; Start 03/02/17 at 12: 30 Dextrose (D50w Syringe) 25 ml Q15M PRN IV DECREASED GLUCOSE Last administered on 03/02/17 12:18; Admin Dose 25 ML; Start 03/02/17 at 12:30 Dextrose (D50w Syringe) 50 ml Q15M PRN IV DECREASED GLUCOSE; Start 03/02/17 at 12:30 Glucagon (Glucagen) 1 mg Q15M PRN IM DECREASED GLUCOSE; Start 03/02/17 at 12:30 Glucose (Glutose) 15 gm Q15M PRN BUCCAL DECREASED GLUCOSE; Start 03/02/17 at 12 :30 Diagnostic Test (Pha) 1 ea 1 ea Q4 XX Last administered on 03/12/17 08:41; Admin Dose 1 EA; Start 03/04/17 at 09:00 Caspofungin 35 mg/ Sodium Chloride 250 ml @ 250 mls/hr Q24H IVPB Last administered on 03/11/17 15:35; Admin Dose 250 MLS/HR; Start 03/04/17 at 15:00 Total Parenteral Nutrition (Tpn) 1,000 ml @ 40 mls/hr Q24H IV Last administered on 03/11/17 21:06; Admin Dose 40 MLS/HR; Start 03/06/17 at 20:00 Sodium Hypochlorite (Dakin'S (1/4 Strength)) 1 applic DAILY IRR Last administered on 03/12/17 08:36; Admin Dose 1 APPLIC; Start 03/07/17 at 09:00 Morphine Sulfate (morphine) 2 mg Q4H PRN IV PAIN LEVEL 7-10 Last administered on 03/11/17 13:11; Admin Dose 2 MG; Start 03/07/17 at 10:00 Furosemide (Lasix) 20 mg DAILY IV Last administered on 03/11/17 10:21; Admin Dose 20 MG; Start 03/11/17 at 10:00 Assessment/Plan Chief Complaint/Hosp Course Additional Assessment/Plan IMP: 1. Vent Dependent Resp Failure 2. Fungemia, polymicrobial septic shock. 3. Pancreatitis possible obstructive jaundice. 4. AMS/Encephalopathy 5. Anemia 6. Possible acute abdomen, currently not stable for CT scan given multiple pressors. Patient would not likely be surgical candidate continue current supportive care. RECS: 1. Vent support currently not weanable from mechanical ventilation secondary to complex medical issues and altered mental status. 2. Continue broad-spectrum antibiotics 3. Surgery recommendations. 4. Anti-fungals per ID 5. Palliative care recommendations. Bioethics deferred as patient found excepting of deterioration 35 min cc time Problems: SLAVA MCBRIDE MD, [facility] Mar 12, 2017 10:02
--- NOTE | 2017-03-12 10:23 | PN ---
Date/Time of Note Date/Time of Note DATE: 03/12/17 TIME: 10:08 Assessment/Plan VTE Prophylaxis VTE Prophylaxis Intervention: SCD's Lines/Catheters IV Catheter Type (from Nrsg): Central Line Central line still needed: Yes (For IV access and TPN) Urinary Cath still in place: Yes Reason Cath still needed: terminal illness/intractable pain Assessment/Plan Assessment/Plan 86 yo female with: 1. Acute Respiratory failure, in setting of 3rd spacing, atelectasis, severe anemia and Norbert glabrata fungemia. Poor overall clinical status. Patient in ICU on mechanical ventilation due to deteriorated respiratory status. Unfortunately declining further over the past 3 days. Currently on FiO2 down to 30%, and more hemodynamically unstable requiring 2 pressors now. Prognosis extremely poor as patient seems to have a known source of infection with sputum positive for MDRO Acinetobacter. CXR mostly unchanged with pulmonary vascular congestion, small to moderate pleural effusions even s/p thoracentesis 02/20 with -300 cc and another right thoracentesis 02/23 with removal of less than 100 cc, Continue Zosyn, vancomycin and Cancidas. Further antibiotic adjustment per ID, Continue to monitor, pulmonary following. 2. Sepsis and Septic shock, from Norbert glabrata fungemia and septicemia . She does have a risk factors but this is the first time her blood cultures are growing yeast, she has been on Diflucan throughout her admission and at discharge from the outside hospital. Patient has been now switched to Cancidas as of last week. PICC line finally removed 03/05 with tip sent for culture, patient has a central line currently. Repeat blood cx pending. Hopefully in the next 2-3 days if blood cultures remain negative, will see if patient can have a PICC line replaced as likely she will need TPN resumed. Repeat blood cultures 02/28 with 1/2 blood cultures still positive with norbert glabrata, it is unclear if it is culture from the PICC line or peripheral. Repeat blood cultures again 03/02 growing Norbert Glabrata Repeat blood cx 03/06 and 03/08 pending. Now concerns regarding possible cholangitis Continue Cancidas and Dr. Jeffrey Teague from infectious diseases following and Zosyn added. Patient is currently intubated, minimally responsive now, declining over the past 3 days, not requiring 2 pressors TPN resumed after discussion with infectious disease, but may need to back off again. 3. S/p Severe pancreatitis with pseudocyst, back on TPN and No tube feeding per GI. Now with also concerns for biliary stent obstruction. Dr Hill following, discussed this AM. CAT scan of the abdomen and pelvis has been compared to the one done at [facility] approximately 3 weeks ago, cholecystostomy tube has been removed however there is concern as the patient has a new fluid collection in addition of the previous pseudocyst also previous pseudocyst seems to have increased in size and there is concern for possible infection. We were planing for drainage of 2nd cyst since admission, but INR at 1.4 and patient clinically declined further now intubated and on 2 pressors with ongoing sepsis and hemodynamic instability. Now even higher INR of 1.8 despite Vit K given, likely in DIC Per Surgery note couple of weeks ago, ? bleeding in pseudocyst but patient was not stable to get bleeding scan due to fact she was on BiPAP Continue Zosyn, vancomycin and Cancidas. 4. Acute on chronic anemia status post blood product transfusion at least twice during this admission, Hb stable today but platelets down again. DIC panel positive. Bleeding scan was not done due to respiratory distress and needs for continuous BiPAP, she is now intubated and improving, is still needed will discuss with GI. No signs of acute bleeding so far however patient does have positive fecal occult blood. Appreciate GI consult, patient and her son declined EGD prior. Appreciate recommendations of Dr Hannah, may still needs CT guided drainage of 2nd pseudocyst by IR, however patient now with hemodynamic instability and intubated, likely also coagulopathic from a septic state/DIC not a candidate for IR procedure yet. 5. Hypotension/septic shock with now findings of Acinetobacter MDR O in the sputum. Patient intubated, and septic with candidemia with Norbert glabrata, continue pressors for blood pressure support, unfortunately at this time declining further requiring more pressor support. Lactic acid up 2.2 today Continue current multiple antibiotics per ID management. Prognosis extremely poor, will need to discuss end-of-life and palliation with son, bioethics will be requested. 6. Acute kidney injury, in setting of septic shock with recent candidemia, now Acinetobacter MDRO in the sputum. Renal function still decent, urine output reasonable Status post albumin 3 boluses yesterday Significant anasarca still noted, patient third spacing. Continue D5NS along with TPN With ongoing hemodynamic instability, requiring pressors, likely patient may end up having some degree of ATN if survives this episode 7. Hyponatremia, Nutrition: Resolved, No tube feeding per GI so TPN resumed x 4 days through new central line in place. 8. Sinus Tachycardia: Per report from [facility] patient has sinus tachycardia. Resolved as patient in less distress currently after intubation and sedation. 9. Venous thromboembolism with episode of DVT, status post IVC filter. Repeat Doppler negative for DVT 10. Mild coagulopathy: PTT wnl, Vitamin K and FFP as needed for INR 1.8 but to be noted patient with VTE, s/p IVC filter. Current coagulopathy likely related to DIC. S/p doses of Vitamin K. In DIC 11. Hyperbilirubinemia, primarily direct, also slight elevation of alkaline phosphatase, concerns for obstructive process/biliary stent Dr Hill will discuss stent change with Son but currently patient hemodynamically unstable. Liver ultrasound showing pancreatic pseudocyst, GI following and will repeat CAT scan of the abdomen and pelvis when patient hemodynamically stable and re- address with Surgery. For now have not been able to perform CAT scan due to hemodynamic instability and increasing pressor requirements overnight. Prophylaxis: Protonix for GI prophylaxis, SCDs and status post IVC filter for DVT prophylaxis Disposition: ICU now, intubated on mechanical ventilation , attempted repeat thoracentesis right pleural effusion with very minimal output. Now with fungemia Unfortunately patient has declined over the past 3 days again with signs of active septic picture and septic shock, new source may be cholangitis based on the current clinical picture, gastroenterology to discuss with son possible need for ERCP and stent change. The DPOA, Jesus Muller, yesterday, again talking to me seems to be more receptive to medical recommendations, he was able to even repeat information that is given to him showing that he was understanding information given again this time. She even mentioned that if his mother was to decline further and ends up in a CODE BLUE situation he will not push for more than 2 rounds of CPR... Bioethics requested. Full code. Subjective 24 Hr Interval Summary Free Text/Dictation Patient declining further, required 2 pressures in about to max out on the second pressor. Bilirubin level increasing, sputum cultures now positive for MDRO Acinetobacter. On multiple antibiotics including antifungal. Extremely poor prognosis Bioethics requested Exam/Review of Systems Vital Signs Vitals Vital Signs Date Time Temp Pulse Resp B/P Pulse Ox O2 Delivery O2 Flow Rate FiO2 03/12/17 09:30 104 102/52 99 03/12/17 09:15 28 30 03/12/17 08:00 97.8 03/11/17 09:00 Mechanical Ventilator Intake and Output 03/11/17 03/11/17 03/12/17 15:00 23:00 07:00 Intake Total 1323.16 ml 849.72 ml 398 ml Output Total 545 ml 470 ml 635 ml Balance 778.16 ml 379.72 ml -237 ml Exam Constitutional: other (Minimally responsive, jaundiced) Respiratory: diminished breath sounds (Bilaterally), other (On mechanical ventilation) Cardiovascular: nl pulses, regular rate and rhythm Gastrointestinal: ascites (Mild to moderate), other (Anasarca), soft Extremities: normal pulses, other (Diffuse anasarca, no clubbing or cyanosis, diffusely jaundiced) Neurological: lethargic, other (Minimally responsive) Results Result Diagram: 03/12/17 0541 03/12/17 0541 Results 24 hrs Laboratory Tests Test 03/11/17 13:07 03/11/17 18:09 03/11/17 21:04 03/12/17 00:47 Bedside Glucose 107 102 92 95 Test 03/12/17 05:41 03/12/17 05:44 03/12/17 08:44 White Blood Count 14.1 H Red Blood Count 2.48 #L Hemoglobin 9.4 L Hematocrit 22.9 #L Mean Corpuscular Volume 92.3 Mean Corpuscular Hemoglobin 37.9 #H Mean Corpuscular Hemoglobin Concent 41.0 #H Red Cell Distribution Width 21.9 H Platelet Count 69 L Mean Platelet Volume Neutrophils % 75.9 Lymphocytes % 16.4 Monocytes % 5.0 Eosinophils % 1.1 Basophils % 0.5 Nucleated Red Blood Cells % 0.1 H Neutrophils # 10.7 H Lymphocytes # 2.3 Monocytes # 0.7 Eosinophils # 0.2 Basophils # 0.1 Nucleated Red Blood Cells # 0.0 Prothrombin Time 20.9 H Prothrombin Time Ratio 1.6 INR International Normalized Ratio 1.78 Activated Partial Thromboplast Time 48.6 H Sodium Level 138 Potassium Level 3.7 Chloride Level 108 Carbon Dioxide Level 16 L Anion Gap 18 H Blood Urea Nitrogen 23 H Creatinine 0.91 Glucose Level 93 Lactic Acid Level 2.2 *H Calcium Level 9.4 Phosphorus Level 4.3 Magnesium Level 1.6 L Total Bilirubin 8.9 H Direct Bilirubin 6.90 H Indirect Bilirubin 2.0 H Aspartate Amino Transf (AST/SGOT) 69 H Alanine Aminotransferase (ALT/SGPT) 33 Alkaline Phosphatase 397 H Total Protein 6.0 L Albumin 2.0 L Globulin 4.00 H Albumin/Globulin Ratio 0.50 Bedside Glucose 96 102 Medications Medications Current Medications Ondansetron HCl (Zofran Inj) 4 mg Q6H PRN IV NAUSEA AND/OR VOMITING Last administered on 02/13/17 00:36; Admin Dose 4 MG; Start 02/11/17 at 10:00 Acetaminophen (Tylenol Tab) 650 mg Q6H PRN PO PAIN LEVEL 1-3 OR FEVER Last administered on 02/25/17 19:51; Admin Dose 650 MG; Start 02/11/17 at 10:00 Docusate Sodium (Colace) 100 mg Q12H PRN PO CONSTIPATION; Start 02/11/17 at 10: 00 Bisacodyl (Dulcolax Supp) 10 mg DAILY PRN [place] CONSTIPATION; Start 02/11/17 at 10 :00 Miscellaneous Information (Pending Santyl Order For Wound Care) This patient prado... PRN PRN XX WOUND CARE; Start 02/11/17 at 19:00 Collagenase (Santyl) 1 applic DAILY TOP Last administered on 03/12/17 08:37; Admin Dose 1 APPLIC; Start 02/12/17 at 13:30 Diphenhydramine HCl (Benadryl) 25 mg Q6H PRN IV ITCHING Last administered on 18:22; Admin Dose 25 MG; Start 02/12/17 at 14:00 Alprazolam (Xanax) 0.25 mg Q12H PRN PO ANXIETY Last administered on 03/12/17 08:30; Admin Dose 0.25 MG; Start 02/19/17 at 14:00 Pantoprazole (Protonix Iv) 40 mg DAILY@06 IV Last administered on 03/12/17 05: 49; Admin Dose 40 MG; Start 02/23/17 at 06:00 Midodrine (Proamatine) 5 mg TID PO Last administered on 03/12/17 08:30; Admin Dose 5 MG; Start 02/23/17 at 13:30 Lorazepam (Ativan) 0.5 mg Q8H PRN IV AGITATION/ANXIETY Last administered on 09:23; Admin Dose 0.5 MG; Start 02/23/17 at 13:30 Miscellaneous Information DAILY XX Last administered on 03/12/17 08:41; Admin Dose 1 EA; Start 02/25/17 at 09:00 Midazolam HCl 50 ml @ 1 mls/hr TITRATE IV Last administered on 03/09/17 11:30; Admin Dose 2 MLS/HR; Start 02/25/17 at 10:00 Fentanyl 100 ml @ 2.5 mls/hr TITRATE IV Last administered on 02/25/17 10:43; Admin Dose 2.5 MLS/HR; Start 02/25/17 at 10:00 Norepinephrine 32 mg/Dextrose 500 ml @ 0 mls/hr TITRATE IV Last administered on 03/11/17 22:33; Admin Dose 28.12 MLS/HR; Start 02/28/17 at 11:30 Phenylephrine HCl 80 mg/Dextrose 500 ml @ 0 mls/hr TITRATE IV Last administered on 03/11/17 23:55; Admin Dose 30 MLS/HR; Start 02/28/17 at 11:30 Vancomycin HCl 750 mg/Dextrose/ Water 150 ml @ 75 mls/hr Q48H IVPB Last administered on 03/11/17 01:42; Admin Dose 75 MLS/HR; Start 03/03/17 at 01:00 Dextrose/Sodium Chloride (D5-NS) 1,000 ml @ 60 mls/hr [id number] IV Last administered on 03/12/17 02:40; Admin Dose 60 MLS/HR; Start 03/02/17 at 12:30 Miscellaneous Information 1 ea NOTE XX ; Start 03/02/17 at 12:30 Glucose (Glutose) 15 gm Q15M PRN PO DECREASED GLUCOSE; Start 03/02/17 at 12:30 Glucose (Glutose) 22.5 gm Q15M PRN PO DECREASED GLUCOSE; Start 03/02/17 at 12: 30 Dextrose (D50w Syringe) 25 ml Q15M PRN IV DECREASED GLUCOSE Last administered on 03/02/17 12:18; Admin Dose 25 ML; Start 03/02/17 at 12:30 Dextrose (D50w Syringe) 50 ml Q15M PRN IV DECREASED GLUCOSE; Start 03/02/17 at 12:30 Glucagon (Glucagen) 1 mg Q15M PRN IM DECREASED GLUCOSE; Start 03/02/17 at 12:30 Glucose (Glutose) 15 gm Q15M PRN BUCCAL DECREASED GLUCOSE; Start 03/02/17 at 12 :30 Diagnostic Test (Pha) 1 ea 1 ea Q4 XX Last administered on 03/12/17 08:41; Admin Dose 1 EA; Start 03/04/17 at 09:00 Caspofungin 35 mg/ Sodium Chloride 250 ml @ 250 mls/hr Q24H IVPB Last administered on 03/11/17 15:35; Admin Dose 250 MLS/HR; Start 03/04/17 at 15:00 Total Parenteral Nutrition (Tpn) 1,000 ml @ 40 mls/hr Q24H IV Last administered on 03/11/17 21:06; Admin Dose 40 MLS/HR; Start 03/06/17 at 20:00 Sodium Hypochlorite (Dakin'S (1/4 Strength)) 1 applic DAILY IRR Last administered on 03/12/17 08:36; Admin Dose 1 APPLIC; Start 03/07/17 at 09:00 Morphine Sulfate (morphine) 2 mg Q4H PRN IV PAIN LEVEL 7-10 Last administered on 03/11/17 13:11; Admin Dose 2 MG; Start 03/07/17 at 10:00 Furosemide (Lasix) 20 mg DAILY IV Last administered on 03/11/17 10:21; Admin Dose 20 MG; Start 03/11/17 at 10:00 BONIFACIO COWART Mar 12, 2017 10:19
--- NOTE | 2017-03-12 11:41 | CONS ---
Date/Time of Note Date/Time of Note DATE: 03/12/17 TIME: 11:20 Assessment/Plan Assessment/Plan Chief Complaint/Hosp Course ID PROGRESS NOTE TOTAL ABX DAY #13 => + Cancidas #13+ Colimycin#1 + Zyvox#1 VANCO IV ->DC 03/12 [facility] -> DC 03/08 24H INTERVAL SUMMARY * Remains orally intubated, less awake/alert than prior * Sputum Cx (+)ACBA = MDRO, WBC down lactic acid 2.2 * Requiring increase pressor support, urine out put declined - renal fx stable * CXR 03/10: Stable central pulmonary vascular congestion and mild interstitial prominence in both lungs.Stable bilateral lower lung infiltrates, combined with small pleural effusions. * Repeat urine Cx post FC change is (-), repeat BCx post line change pending * MICRO: (+)Yeast UTI (+)Yeast BCx = Fungemia due to Infected PICC line + UTI * 02/25 BCx(+)Yeast; 02/28/17 BCx (+) Yeast; 03/02 BCx (-) GENERAL: Elderly lady on mechanical ventilation orally intubated. VITAL SIGNS: see below. HEENT: Unremarkable ETT-> secure to Vent CARDIAC: S1, S2, 1/6 systolic ejection murmur CHEST: Diminished air entry bilaterally. ABDOMEN: Mildly distended. Bowel sounds present no guarding or rebound EXTREMITIES: No cyanosis, clubbing edema NEUROLOGIC: Generalized weakness ID ASSESSMENT 86 yo F with: 1. Sepsis w/Fevers >102.+ 02/24 &, leukocytosis, tachycardia => Disseminated Fungemia ->REQUIRING INCREASED PRESSORS PAST 48H * Repeat BCx via new PICC 03/06 (-) * BCx 02/25 (+) YEAST => Infx PICC line== PICC DC'd 03/06/17 * 02/25/17 YEAST UTI = FC changed * 03/12: Sputum Cx (+)ACBA = MDRO, lactic acid elevated 2.2 2. Acute hypoxic respiratory failure=> Intubated 02/24 in setting of sepsis 3.HCAP=VAP: Sputum Cx (+)ACBA->Start Colimycin 03/12 Severe pancreatitis with pseudocyst, currently on TPN. * Plan to drain pseudocyst #2 on hold due to sepsis, thrombocytopenia 4. Acute on chronic anemia status post blood product transfusion 5. Urinary retention 6. s/p VRE UTI 02/15/17 7. s/p acute kidney injury 8. Venous thromboembolism with episode of DVT, status post IVC filter. Repeat Doppler negative for DVT (+)MRSA Nares screen (+)MRSA Stool colonization (+)VRE Stool colonization INVASIVES: Left CVC 03/05/17, ETT, OGT ABX ALLERGY: PCN CURRENT ABX: #=> + Cancidas#13 + Colimycin #1 + Zyvox #1 TOTAL ABX DAY #13 VANCO IV ->DC 03/12 [facility] -> DC 03/08 ID RECOMMENDATIONS 1. Broaden ABX coverage -> worsening sepsis w/Failed weaning trials -- increased need for pressor support past 48H * 03/12 RESULTS: Sputum Cx (+)ACBA = MDRO, WBC down lactic acid 2.2 2. Start Zyvox (hx of VRE wound) =>DC Vanco IV 3. Start Colimycin IV for GNR ACBA VAP 4. Continue Cancidas for Fungemia . Problems: Consultation Date/Type/Reason Admit Date/Time Feb 11, 2017 at 05:28 Initial Consult Date 02/21/17 Type of Consultation: ID Referring Provider: BONIFACIO COWART Exam/Review of Systems Vital Signs Vitals Vital Signs Date Time Temp Pulse Resp B/P Pulse Ox O2 Delivery O2 Flow Rate FiO2 03/12/17 09:30 104 102/52 99 03/12/17 09:15 28 30 03/12/17 08:00 97.8 03/11/17 09:00 Mechanical Ventilator Intake and Output 03/11/17 03/11/17 03/12/17 15:00 23:00 07:00 Intake Total 1323.16 ml 849.72 ml 398 ml Output Total 545 ml 470 ml 635 ml Balance 778.16 ml 379.72 ml -237 ml Results Result Diagram: 03/12/17 0541 03/12/17 0541 Results 24 hrs Laboratory Tests Test 03/11/17 13:07 03/11/17 18:09 03/11/17 21:04 03/12/17 00:47 Bedside Glucose 107 102 92 95 Test 03/12/17 05:41 03/12/17 05:44 03/12/17 08:44 White Blood Count 14.1 H Red Blood Count 2.48 #L Hemoglobin 9.4 L Hematocrit 22.9 #L Mean Corpuscular Volume 92.3 Mean Corpuscular Hemoglobin 37.9 #H Mean Corpuscular Hemoglobin Concent 41.0 #H Red Cell Distribution Width 21.9 H Platelet Count 69 L Mean Platelet Volume Neutrophils % 75.9 Lymphocytes % 16.4 Monocytes % 5.0 Eosinophils % 1.1 Basophils % 0.5 Nucleated Red Blood Cells % 0.1 H Neutrophils # 10.7 H Lymphocytes # 2.3 Monocytes # 0.7 Eosinophils # 0.2 Basophils # 0.1 Nucleated Red Blood Cells # 0.0 Prothrombin Time 20.9 H Prothrombin Time Ratio 1.6 INR International Normalized Ratio 1.78 Activated Partial Thromboplast Time 48.6 H Sodium Level 138 Potassium Level 3.7 Chloride Level 108 Carbon Dioxide Level 16 L Anion Gap 18 H Blood Urea Nitrogen 23 H Creatinine 0.91 Glucose Level 93 Lactic Acid Level 2.2 *H Calcium Level 9.4 Phosphorus Level 4.3 Magnesium Level 1.6 L Total Bilirubin 8.9 H Direct Bilirubin 6.90 H Indirect Bilirubin 2.0 H Aspartate Amino Transf (AST/SGOT) 69 H Alanine Aminotransferase (ALT/SGPT) 33 Alkaline Phosphatase 397 H Total Protein 6.0 L Albumin 2.0 L Globulin 4.00 H Albumin/Globulin Ratio 0.50 Bedside Glucose 96 102 Medications Medications Current Medications Ondansetron HCl (Zofran Inj) 4 mg Q6H PRN IV NAUSEA AND/OR VOMITING Last administered on 02/13/17 00:36; Admin Dose 4 MG; Start 02/11/17 at 10:00 Acetaminophen (Tylenol Tab) 650 mg Q6H PRN PO PAIN LEVEL 1-3 OR FEVER Last administered on 02/25/17 19:51; Admin Dose 650 MG; Start 02/11/17 at 10:00 Docusate Sodium (Colace) 100 mg Q12H PRN PO CONSTIPATION; Start 02/11/17 at 10: 00 Bisacodyl (Dulcolax Supp) 10 mg DAILY PRN [place] CONSTIPATION; Start 02/11/17 at 10 :00 Miscellaneous Information (Pending [facility] Order For Wound Care) This patient prado... PRN PRN XX WOUND CARE; Start 02/11/17 at 19:00 Collagenase (Santyl) 1 applic DAILY TOP Last administered on 03/12/17 08:37; Admin Dose 1 APPLIC; Start 02/12/17 at 13:30 Diphenhydramine HCl (Benadryl) 25 mg Q6H PRN IV ITCHING Last administered on 18:22; Admin Dose 25 MG; Start 02/12/17 at 14:00 Alprazolam (Xanax) 0.25 mg Q12H PRN PO ANXIETY Last administered on 03/12/17 08:30; Admin Dose 0.25 MG; Start 02/19/17 at 14:00 Pantoprazole (Protonix Iv) 40 mg DAILY@06 IV Last administered on 03/12/17 05: 49; Admin Dose 40 MG; Start 02/23/17 at 06:00 Midodrine (Proamatine) 5 mg TID PO Last administered on 03/12/17 08:30; Admin Dose 5 MG; Start 02/23/17 at 13:30 Lorazepam (Ativan) 0.5 mg Q8H PRN IV AGITATION/ANXIETY Last administered on 09:23; Admin Dose 0.5 MG; Start 02/23/17 at 13:30 Miscellaneous Information DAILY XX Last administered on 03/12/17 08:41; Admin Dose 1 EA; Start 02/25/17 at 09:00 Midazolam HCl 50 ml @ 1 mls/hr TITRATE IV Last administered on 03/09/17 11:30; Admin Dose 2 MLS/HR; Start 02/25/17 at 10:00 Fentanyl 100 ml @ 2.5 mls/hr TITRATE IV Last administered on 02/25/17 10:43; Admin Dose 2.5 MLS/HR; Start 02/25/17 at 10:00 Norepinephrine 32 mg/Dextrose 500 ml @ 0 mls/hr TITRATE IV Last administered on 03/11/17 22:33; Admin Dose 28.12 MLS/HR; Start 02/28/17 at 11:30 Phenylephrine HCl 80 mg/Dextrose 500 ml @ 0 mls/hr TITRATE IV Last administered on 03/11/17 23:55; Admin Dose 30 MLS/HR; Start 02/28/17 at 11:30 Vancomycin HCl 750 mg/Dextrose/ Water 150 ml @ 75 mls/hr Q48H IVPB Last administered on 03/11/17 01:42; Admin Dose 75 MLS/HR; Start 03/03/17 at 01:00 Dextrose/Sodium Chloride (D5-NS) 1,000 ml @ 60 mls/hr [id number] IV Last administered on 03/12/17 02:40; Admin Dose 60 MLS/HR; Start 03/02/17 at 12:30 Miscellaneous Information 1 ea NOTE XX ; Start 03/02/17 at 12:30 Glucose (Glutose) 15 gm Q15M PRN PO DECREASED GLUCOSE; Start 03/02/17 at 12:30 Glucose (Glutose) 22.5 gm Q15M PRN PO DECREASED GLUCOSE; Start 03/02/17 at 12: 30 Dextrose (D50w Syringe) 25 ml Q15M PRN IV DECREASED GLUCOSE Last administered on 03/02/17 12:18; Admin Dose 25 ML; Start 03/02/17 at 12:30 Dextrose (D50w Syringe) 50 ml Q15M PRN IV DECREASED GLUCOSE; Start 03/02/17 at 12:30 Glucagon (Glucagen) 1 mg Q15M PRN IM DECREASED GLUCOSE; Start 03/02/17 at 12:30 Glucose (Glutose) 15 gm Q15M PRN BUCCAL DECREASED GLUCOSE; Start 03/02/17 at 12 :30 Diagnostic Test (Pha) 1 ea 1 ea Q4 XX Last administered on 03/12/17 08:41; Admin Dose 1 EA; Start 03/04/17 at 09:00 Caspofungin 35 mg/ Sodium Chloride 250 ml @ 250 mls/hr Q24H IVPB Last administered on 03/11/17 15:35; Admin Dose 250 MLS/HR; Start 03/04/17 at 15:00 Total Parenteral Nutrition (Tpn) 1,000 ml @ 40 mls/hr Q24H IV Last administered on 03/11/17 21:06; Admin Dose 40 MLS/HR; Start 03/06/17 at 20:00 Sodium Hypochlorite (Dakin'S (1/4 Strength)) 1 applic DAILY IRR Last administered on 03/12/17 08:36; Admin Dose 1 APPLIC; Start 03/07/17 at 09:00 Morphine Sulfate (morphine) 2 mg Q4H PRN IV PAIN LEVEL 7-10 Last administered on 03/11/17 13:11; Admin Dose 2 MG; Start 03/07/17 at 10:00 Furosemide (Lasix) 20 mg DAILY IV Last administered on 03/11/17 10:21; Admin Dose 20 MG; Start 03/11/17 at 10:00 DEBORA WILLOUGHBY NP Mar 12, 2017 11:30
[2017-03-12] MEDS: PHENYLephrine 80 MG in DEXTROSE 5% 492 ML IV SCH (12:11)
--- NOTE | 2017-03-12 12:11 | CONS ---
Date/Time of Note Date/Time of Note DATE: 03/12/17 TIME: 12:09 Assessment/Plan Assessment/Plan Additional Assessment/Plan I spoke to Dr Cowart we are waiting for bioethics consult to be scheduled, risk management and patient advocate. Recommendations per my prior first consultation note. Consultation Date/Type/Reason Admit Date/Time Feb 11, 2017 at 05:28 Initial Consult Date 03/11/17 Type of Consultation: Palliative care Referring Provider: BONIFACIO COWART Exam/Review of Systems Vital Signs Vitals Vital Signs Date Time Temp Pulse Resp B/P Pulse Ox O2 Delivery O2 Flow Rate FiO2 03/12/17 09:30 104 102/52 99 03/12/17 09:15 28 30 03/12/17 08:00 97.8 03/11/17 09:00 Mechanical Ventilator Intake and Output 03/11/17 03/11/17 03/12/17 14:59 22:59 06:59 Intake Total 1329.34 ml 990.97 ml 398 ml Output Total 475 ml 490 ml 640 ml Balance 854.34 ml 500.97 ml -242 ml Results Result Diagram: 03/12/17 0541 03/12/17 0541 Results 24 hrs Laboratory Tests Test 03/11/17 13:07 03/11/17 18:09 03/11/17 21:04 03/12/17 00:47 Bedside Glucose 107 102 92 95 Test 03/12/17 05:41 03/12/17 05:44 03/12/17 08:44 White Blood Count 14.1 H Red Blood Count 2.48 #L Hemoglobin 9.4 L Hematocrit 22.9 #L Mean Corpuscular Volume 92.3 Mean Corpuscular Hemoglobin 37.9 #H Mean Corpuscular Hemoglobin Concent 41.0 #H Red Cell Distribution Width 21.9 H Platelet Count 69 L Mean Platelet Volume Neutrophils % 75.9 Lymphocytes % 16.4 Monocytes % 5.0 Eosinophils % 1.1 Basophils % 0.5 Nucleated Red Blood Cells % 0.1 H Neutrophils # 10.7 H Lymphocytes # 2.3 Monocytes # 0.7 Eosinophils # 0.2 Basophils # 0.1 Nucleated Red Blood Cells # 0.0 Prothrombin Time 20.9 H Prothrombin Time Ratio 1.6 INR International Normalized Ratio 1.78 Activated Partial Thromboplast Time 48.6 H Sodium Level 138 Potassium Level 3.7 Chloride Level 108 Carbon Dioxide Level 16 L Anion Gap 18 H Blood Urea Nitrogen 23 H Creatinine 0.91 Glucose Level 93 Lactic Acid Level 2.2 *H Calcium Level 9.4 Phosphorus Level 4.3 Magnesium Level 1.6 L Total Bilirubin 8.9 H Direct Bilirubin 6.90 H Indirect Bilirubin 2.0 H Aspartate Amino Transf (AST/SGOT) 69 H Alanine Aminotransferase (ALT/SGPT) 33 Alkaline Phosphatase 397 H Total Protein 6.0 L Albumin 2.0 L Globulin 4.00 H Albumin/Globulin Ratio 0.50 Bedside Glucose 96 102 Medications Medications Current Medications Ondansetron HCl (Zofran Inj) 4 mg Q6H PRN IV NAUSEA AND/OR VOMITING Last administered on 02/13/17 00:36; Admin Dose 4 MG; Start 02/11/17 at 10:00 Acetaminophen (Tylenol Tab) 650 mg Q6H PRN PO PAIN LEVEL 1-3 OR FEVER Last administered on 02/25/17 19:51; Admin Dose 650 MG; Start 02/11/17 at 10:00 Docusate Sodium (Colace) 100 mg Q12H PRN PO CONSTIPATION; Start 02/11/17 at 10: 00 Bisacodyl (Dulcolax Supp) 10 mg DAILY PRN [place] CONSTIPATION; Start 02/11/17 at 10 :00 Miscellaneous Information (Pending Santyl Order For Wound Care) This patient prado... PRN PRN XX WOUND CARE; Start 02/11/17 at 19:00 Collagenase (Santyl) 1 applic DAILY TOP Last administered on 03/12/17 08:37; Admin Dose 1 APPLIC; Start 02/12/17 at 13:30 Diphenhydramine HCl (Benadryl) 25 mg Q6H PRN IV ITCHING Last administered on 18:22; Admin Dose 25 MG; Start 02/12/17 at 14:00 Alprazolam (Xanax) 0.25 mg Q12H PRN PO ANXIETY Last administered on 03/12/17 08:30; Admin Dose 0.25 MG; Start 02/19/17 at 14:00 Pantoprazole (Protonix Iv) 40 mg DAILY@06 IV Last administered on 03/12/17 05: 49; Admin Dose 40 MG; Start 02/23/17 at 06:00 Midodrine (Proamatine) 5 mg TID PO Last administered on 03/12/17 08:30; Admin Dose 5 MG; Start 02/23/17 at 13:30 Lorazepam (Ativan) 0.5 mg Q8H PRN IV AGITATION/ANXIETY Last administered on 09:23; Admin Dose 0.5 MG; Start 02/23/17 at 13:30 Miscellaneous Information DAILY XX Last administered on 03/12/17 08:41; Admin Dose 1 EA; Start 02/25/17 at 09:00 Midazolam HCl 50 ml @ 1 mls/hr TITRATE IV Last administered on 03/09/17 11:30; Admin Dose 2 MLS/HR; Start 02/25/17 at 10:00 Fentanyl 100 ml @ 2.5 mls/hr TITRATE IV Last administered on 02/25/17 10:43; Admin Dose 2.5 MLS/HR; Start 02/25/17 at 10:00 Norepinephrine 32 mg/Dextrose 500 ml @ 0 mls/hr TITRATE IV Last administered on 03/11/17 22:33; Admin Dose 28.12 MLS/HR; Start 02/28/17 at 11:30 Phenylephrine HCl 80 mg/Dextrose 500 ml @ 0 mls/hr TITRATE IV Last administered on 03/11/17 23:55; Admin Dose 30 MLS/HR; Start 02/28/17 at 11:30 Dextrose/Sodium Chloride (D5-NS) 1,000 ml @ 60 mls/hr [id number] IV Last administered on 03/12/17 02:40; Admin Dose 60 MLS/HR; Start 03/02/17 at 12:30 Miscellaneous Information 1 ea NOTE XX ; Start 03/02/17 at 12:30 Glucose (Glutose) 15 gm Q15M PRN PO DECREASED GLUCOSE; Start 03/02/17 at 12:30 Glucose (Glutose) 22.5 gm Q15M PRN PO DECREASED GLUCOSE; Start 03/02/17 at 12: 30 Dextrose (D50w Syringe) 25 ml Q15M PRN IV DECREASED GLUCOSE Last administered on 03/02/17 12:18; Admin Dose 25 ML; Start 03/02/17 at 12:30 Dextrose (D50w Syringe) 50 ml Q15M PRN IV DECREASED GLUCOSE; Start 03/02/17 at 12:30 Glucagon (Glucagen) 1 mg Q15M PRN IM DECREASED GLUCOSE; Start 03/02/17 at 12:30 Glucose (Glutose) 15 gm Q15M PRN BUCCAL DECREASED GLUCOSE; Start 03/02/17 at 12 :30 Diagnostic Test (Pha) 1 ea 1 ea Q4 XX Last administered on 03/12/17 08:41; Admin Dose 1 EA; Start 03/04/17 at 09:00 Caspofungin 35 mg/ Sodium Chloride 250 ml @ 250 mls/hr Q24H IVPB Last administered on 03/11/17 15:35; Admin Dose 250 MLS/HR; Start 03/04/17 at 15:00 Total Parenteral Nutrition (Tpn) 1,000 ml @ 40 mls/hr Q24H IV Last administered on 03/11/17 21:06; Admin Dose 40 MLS/HR; Start 03/06/17 at 20:00 Sodium Hypochlorite (Dakin'S (1/4 Strength)) 1 applic DAILY IRR Last administered on 03/12/17 08:36; Admin Dose 1 APPLIC; Start 03/07/17 at 09:00 Morphine Sulfate (morphine) 2 mg Q4H PRN IV PAIN LEVEL 7-10 Last administered on 03/11/17 13:11; Admin Dose 2 MG; Start 03/07/17 at 10:00 Furosemide 20 mg 20 mg DAILY IV Last administered on 03/11/17 10:21; Admin Dose 20 MG; Start 03/11/17 at 10:00 Linezolid 300 ml @ 300 mls/hr Q12 IVPB ; Start 03/12/17 at 21:00 Colistimethate Sodium/Dextrose (Coly-Mycin/D5W) 100 ml @ 200 mls/hr Q12 IVPB ; Start 03/12/17 at 12:30 JYOTI SAM Mar 12, 2017 12:11
[2017-03-12] MEDS: COLISTIMETHATE IVPB SCH ×2 (14:29→21:00)
[2017-03-12] MEDS: DEXTROSE 5% IVPB SCH ×2 (14:29→21:00)
--- NOTE | 2017-03-12 15:08 | PN ---
Date/Time of Note Date/Time of Note DATE: 03/12/17 TIME: 15:05 Assessment/Plan VTE Prophylaxis VTE Prophylaxis Intervention: contraindicated VTE Contraindication Reason: bleeding Lines/Catheters IV Catheter Type (from Nrs): Central Line Central line still needed: Yes Urinary Cath still in place: Yes Reason Cath still needed: urinary retention Assessment/Plan Assessment/Plan Sepsis * Acute respiratory failure management c/o pulmonary * Encephalopathy * Anemia/recurrent/probable GI bleeding * Refused EGD * Pancreatitis with Pancreatic pseudocyst/awaiting drainage * Coagulopathy * H/O tube cholecystostomy/biliary stent * Rule out stent occlusion Plan : * Continue present regimen * monitor hemoglobin and hematocrit daily and transfuse per protocol * further orders will depend on clinical course * case discussed with Dr Hill * The patient would benefit from endoscopic evaluation in ERCP with stent removal or replacement however this has been refused when the patient was in more stable condition at the present time she appears to be too unstable for invasive procedures Subjective 24 Hr Interval Summary Free Text/Dictation * Course reviewed with RN * Patient seen and examined * Still on pressors Exam/Review of Systems Vital Signs Vitals Vital Signs Date Time Temp Pulse Resp B/P Pulse Ox O2 Delivery O2 Flow Rate FiO2 03/12/17 14:30 104 20 95/50 99 03/12/17 12:00 97.2 03/12/17 09:15 30 03/11/17 09:00 Mechanical Ventilator Intake and Output 03/11/17 03/11/17 03/12/17 15:00 23:00 07:00 Intake Total 1323.16 ml 849.72 ml 398 ml Output Total 545 ml 470 ml 635 ml Balance 778.16 ml 379.72 ml -237 ml Exam Constitutional: frail Neck: non-tender, supple Cardiovascular: nl pulses, regular rate and rhythm Gastrointestinal: non-tender, soft Musculoskeletal: muscle weakness, swelling Extremities: edema, normal pulses Neurological: unresponsive Skin: ecchymosis, rash or lesions Lymph: nl lymph nodes Results Result Diagram: 03/12/17 0541 03/12/17 0541 Results 24 hrs Laboratory Tests Test 03/11/17 18:09 03/11/17 21:04 03/12/17 00:47 03/12/17 05:41 Bedside Glucose 102 92 95 White Blood Count 14.1 H Red Blood Count 2.48 #L Hemoglobin 9.4 L Hematocrit 22.9 #L Mean Corpuscular Volume 92.3 Mean Corpuscular Hemoglobin 37.9 #H Mean Corpuscular Hemoglobin Concent 41.0 #H Red Cell Distribution Width 21.9 H Platelet Count 69 L Mean Platelet Volume Neutrophils % 75.9 Lymphocytes % 16.4 Monocytes % 5.0 Eosinophils % 1.1 Basophils % 0.5 Nucleated Red Blood Cells % 0.1 H Neutrophils # 10.7 H Lymphocytes # 2.3 Monocytes # 0.7 Eosinophils # 0.2 Basophils # 0.1 Nucleated Red Blood Cells # 0.0 Prothrombin Time 20.9 H Prothrombin Time Ratio 1.6 INR International Normalized Ratio 1.78 Activated Partial Thromboplast Time 48.6 H Sodium Level 138 Potassium Level 3.7 Chloride Level 108 Carbon Dioxide Level 16 L Anion Gap 18 H Blood Urea Nitrogen 23 H Creatinine 0.91 Glucose Level 93 Lactic Acid Level 2.2 *H Calcium Level 9.4 Phosphorus Level 4.3 Magnesium Level 1.6 L Total Bilirubin 8.9 H Direct Bilirubin 6.90 H Indirect Bilirubin 2.0 H Aspartate Amino Transf (AST/SGOT) 69 H Alanine Aminotransferase (ALT/SGPT) 33 Alkaline Phosphatase 397 H Total Protein 6.0 L Albumin 2.0 L Globulin 4.00 H Albumin/Globulin Ratio 0.50 Test 03/12/17 05:44 03/12/17 08:44 03/12/17 12:45 Bedside Glucose 96 102 100 Medications Medications Current Medications Ondansetron HCl (Zofran Inj) 4 mg Q6H PRN IV NAUSEA AND/OR VOMITING Last administered on 02/13/17 00:36; Admin Dose 4 MG; Start 02/11/17 at 10:00 Acetaminophen (Tylenol Tab) 650 mg Q6H PRN PO PAIN LEVEL 1-3 OR FEVER Last administered on 02/25/17 19:51; Admin Dose 650 MG; Start 02/11/17 at 10:00 Docusate Sodium (Colace) 100 mg Q12H PRN PO CONSTIPATION; Start 02/11/17 at 10: 00 Bisacodyl (Dulcolax Supp) 10 mg DAILY PRN [place] CONSTIPATION; Start 02/11/17 at 10 :00 Miscellaneous Information (Pending Santyl Order For Wound Care) This patient prado... PRN PRN XX WOUND CARE; Start 02/11/17 at 19:00 Collagenase (Santyl) 1 applic DAILY TOP Last administered on 03/12/17 08:37; Admin Dose 1 APPLIC; Start 02/12/17 at 13:30 Diphenhydramine HCl (Benadryl) 25 mg Q6H PRN IV ITCHING Last administered on 18:22; Admin Dose 25 MG; Start 02/12/17 at 14:00 Alprazolam (Xanax) 0.25 mg Q12H PRN PO ANXIETY Last administered on 03/12/17 08:30; Admin Dose 0.25 MG; Start 02/19/17 at 14:00 Pantoprazole (Protonix Iv) 40 mg DAILY@06 IV Last administered on 03/12/17 05: 49; Admin Dose 40 MG; Start 02/23/17 at 06:00 Midodrine (Proamatine) 5 mg TID PO Last administered on 03/12/17 12:25; Admin Dose 5 MG; Start 02/23/17 at 13:30 Lorazepam (Ativan) 0.5 mg Q8H PRN IV AGITATION/ANXIETY Last administered on 09:23; Admin Dose 0.5 MG; Start 02/23/17 at 13:30 Miscellaneous Information DAILY XX Last administered on 03/12/17 08:41; Admin Dose 1 EA; Start 02/25/17 at 09:00 Midazolam HCl 50 ml @ 1 mls/hr TITRATE IV Last administered on 03/09/17 11:30; Admin Dose 2 MLS/HR; Start 02/25/17 at 10:00 Fentanyl 100 ml @ 2.5 mls/hr TITRATE IV Last administered on 02/25/17 10:43; Admin Dose 2.5 MLS/HR; Start 02/25/17 at 10:00 Norepinephrine 32 mg/Dextrose 500 ml @ 0 mls/hr TITRATE IV Last administered on 03/12/17 12:09; Admin Dose 28.12 MLS/HR; Start 02/28/17 at 11:30 Phenylephrine HCl 80 mg/Dextrose 500 ml @ 0 mls/hr TITRATE IV Last administered on 03/12/17 12:11; Admin Dose 67.5 MLS/HR; Start 02/28/17 at 11:30 Dextrose/Sodium Chloride (D5-NS) 1,000 ml @ 60 mls/hr [id number] IV Last administered on 03/12/17 02:40; Admin Dose 60 MLS/HR; Start 03/02/17 at 12:30 Miscellaneous Information 1 ea NOTE XX ; Start 03/02/17 at 12:30 Glucose (Glutose) 15 gm Q15M PRN PO DECREASED GLUCOSE; Start 03/02/17 at 12:30 Glucose (Glutose) 22.5 gm Q15M PRN PO DECREASED GLUCOSE; Start 03/02/17 at 12: 30 Dextrose (D50w Syringe) 25 ml Q15M PRN IV DECREASED GLUCOSE Last administered on 03/02/17 12:18; Admin Dose 25 ML; Start 03/02/17 at 12:30 Dextrose (D50w Syringe) 50 ml Q15M PRN IV DECREASED GLUCOSE; Start 03/02/17 at 12:30 Glucagon (Glucagen) 1 mg Q15M PRN IM DECREASED GLUCOSE; Start 03/02/17 at 12:30 Glucose (Glutose) 15 gm Q15M PRN BUCCAL DECREASED GLUCOSE; Start 03/02/17 at 12 :30 Diagnostic Test (Pha) 1 ea 1 ea Q4 XX Last administered on 03/12/17 13:05; Admin Dose 1 EA; Start 03/04/17 at 09:00 Caspofungin 35 mg/ Sodium Chloride 250 ml @ 250 mls/hr Q24H IVPB Last administered on 03/11/17 15:35; Admin Dose 250 MLS/HR; Start 03/04/17 at 15:00 Total Parenteral Nutrition (Tpn) 1,000 ml @ 40 mls/hr Q24H IV Last administered on 03/11/17 21:06; Admin Dose 40 MLS/HR; Start 03/06/17 at 20:00 Sodium Hypochlorite (Dakin'S (1/4 Strength)) 1 applic DAILY IRR Last administered on 03/12/17 08:36; Admin Dose 1 APPLIC; Start 03/07/17 at 09:00 Morphine Sulfate (morphine) 2 mg Q4H PRN IV PAIN LEVEL 7-10 Last administered on 03/11/17 13:11; Admin Dose 2 MG; Start 03/07/17 at 10:00 Furosemide 20 mg 20 mg DAILY IV Last administered on 03/11/17 10:21; Admin Dose 20 MG; Start 03/11/17 at 10:00 Linezolid 300 ml @ 300 mls/hr Q12 IVPB ; Start 03/12/17 at 21:00 Colistimethate Sodium/Dextrose (Coly-Mycin/D5W) 100 ml @ 200 mls/hr Q12 IVPB Last administered on 03/12/17 14:29; Admin Dose 200 MLS/HR; Start 03/12/17 at 12:30 LUZMARIA SPAIN NP Mar 12, 2017 15:08
[2017-03-12] MEDS: CASPOFUNGIN 35 MG in SOD CHLORIDE 0.9% 250 ML IVPB SCH (15:52)
[2017-03-12] MEDS: morphine 2 MG INJ IV PRN (16:01)
[2017-03-12] MEDS ORDERED: VASOPRESSIN 60 UNIT in DEXTROSE 5% 57 ML IV SCH (17:30)
[2017-03-12] MEDS ORDERED: morphine (DRIP) 100 MG/100 ML 100 ML IV SCH (18:30)
[2017-03-12] MEDS ORDERED: LORAZEPAM 2 MG INJ IV ONE (18:30)
[2017-03-12] MEDS ORDERED: morphine 10 MG INJ IV ONE (18:30)
[2017-03-12] MEDS ORDERED: LORAZEPAM (MDV) 60 MG in DEXTROSE 5% 30 ML IV SCH (19:30)
--- NOTE | 2017-03-12 19:39 | PN ---
Date/Time of Note Date/Time of Note DATE: 03/12/17 TIME: 19:39 Assessment/Plan Lines/Catheters IV Catheter Type (from Nrsg): Central Line Elder in Place (from Nrsg): Yes Assessment/Plan Chief Complaint/Hosp Course Additional Assessment/Plan Respiratory failure Pancreatitis Infected PICC line Patient will be needing a central line I had a discussion with the son today He is in agreement to proceed with a central line Response complications alternative therapies explained to the patient's son All questions answered SP central line placement, site clean will continue supp care Problems: Subjective 24 Hr Interval Summary Constitutional: improved Pain Control: mild Exam/Review of Systems Vital Signs Vitals Vital Signs Date Time Temp Pulse Resp B/P Pulse Ox O2 Delivery O2 Flow Rate FiO2 03/12/17 17:05 95 20 99 30 03/12/17 16:45 94/64 03/12/17 16:00 97.0 03/11/17 09:00 Mechanical Ventilator Intake and Output 03/11/17 03/11/17 03/12/17 15:00 23:00 07:00 Intake Total 1323.16 ml 849.72 ml 563.62 ml Output Total 545 ml 470 ml 635 ml Balance 778.16 ml 379.72 ml -71.38 ml Exam Neck: non-tender, supple Respiratory: clear to auscultation, normal air movement Cardiovascular: nl pulses, regular rate and rhythm Gastrointestinal: nl liver, spleen, non-tender, soft Results Result Diagram: 03/12/17 0541 03/12/17 0541 LUIZ SEQUEIRA MD Mar 12, 2017 19:39
[2017-03-12] MEDS: TPN 1,000 ML IV SCH (20:00)
[2017-03-12] MEDS ORDERED: LINEZOLID 600 MG/D5W (PMX) 300 ML IVPB SCH (21:00)
[2017-03-12] MEDS ORDERED: PHENYLephrine 20MG IN 250 ML 250 ML ONE (22:05)
[2017-03-12] MEDS ORDERED: ACETAMINOPHEN 650MG/20.3ML CUP NGT PRN (23:30)
[2017-03-12] MEDS ORDERED: ONDANSETRON 4 MG INJ IV PRN (23:30)
[2017-03-12] MEDS ORDERED: VANCOMYCIN IV PER PHARMACY XX SCH (23:30)
[2017-03-12] MEDS: VASOPRESSIN 60 UNIT in DEXTROSE 5% 57 ML IV SCH (23:30)
[2017-03-12] MEDS ORDERED: DIPHENHYDRAMINE 50 MG INJ IV PRN (23:30)
[2017-03-12] MEDS ORDERED: ALPRAZOLAM 0.25 MG TAB NGT PRN (23:30)
[2017-03-12] MEDS ORDERED: BISACODYL 10 MG SUPP PR PRN (23:30)
[2017-03-12] MEDS ORDERED: FENTAnyl (DRIP) 1000 mcg/100mL 100 ML IV SCH (23:30)
[2017-03-12] MEDS ORDERED: LORAZEPAM 2 MG INJ IV PRN (23:30)
[2017-03-12] MEDS ORDERED: ALBUTEROL/IPRATROPIUM (NEB) 3 ML AMP HHN PRN (23:30)
[2017-03-12] MEDS ORDERED: DOCUSATE SODIUM 10 MG/ML (10ML CUP) NGT PRN (23:30)
[2017-03-12] MEDS ORDERED: MIDAZOLAM (DRIP) 50 mg/50 mL 50 ML IV SCH (23:30)
[2017-03-12] MEDS ORDERED: morphine 10 MG INJ IV PRN (23:30)
[2017-03-13] VITALS (98 sets, daily range): BP systolic 41–89; BP diastolic 24–71; PULSE 80–129; RESP 15–28
[2017-03-13] MEDS ORDERED: CASPOFUNGIN 35 MG in SOD CHLORIDE 0.9% 250 ML IVPB SCH ×2
[2017-03-13] MEDS: TPN 1,000 ML IV SCH
[2017-03-13] MEDS ORDERED: DEXTROSE 5%-0.9% NACL 1,000 ML IV SCH
[2017-03-13] MEDS ORDERED: IPRATROPIUM (HFA) 12.9 GM INHALER INH SCH
[2017-03-13] MEDS ORDERED: TPN 1,000 ML IV SCH
[2017-03-13] MEDS: EPINEPHrine 4 MG in DEXTROSE 5% 246 ML IV SCH ×3 (00:14→22:34)
[2017-03-13] MEDS: ALBUTEROL 18 GM INHALER INH SCH ×4 (00:31→15:15)
[2017-03-13] MEDS: IPRATROPIUM (HFA) 12.9 GM INHALER INH SCH ×3 (00:33→15:15)
[2017-03-13] MEDS ORDERED: ACCU-CHEK XX SCH (01:00)
[2017-03-13] MEDS: PHENYLephrine 80 MG in DEXTROSE 5% 492 ML IV SCH ×6 (01:03→22:33)
[2017-03-13 02:05] LABS: AADO2 Arterial 233.2 mmHg (7.0-24.0); Allen Test ACCEPTAB; Arterial Base Excess -11.3 mmol/L (-3.0-3); Arterial COHb 0.3 % (0.0-3.0); Arterial Fraction of Oxyhgb 96.2 % (93.0-99.0); Arterial HCO3 13.4 mmol/L (22.0-26.0); Arterial MetHb 0.3 % (0.0-1.5); Arterial Total Hemglobin 9.6 g/dl (12.0-18.0); Blood Gas Mean Airway Pressure 11; MODE VENT - AC
[2017-03-13] MEDS ORDERED: NA BICARBONATE 8.4% 50 ML SYG ONE (02:25)
[2017-03-13] MEDS ORDERED: NA BICARBONATE 8.4% 50 ML SYG IV ONE ×2 (02:30→05:00)
[2017-03-13] MEDS ORDERED: SODIUM BICARBONATE (IV ADD) 150 MEQ in SOD CHLORIDE 0.9% 850 ML IV SCH (02:30)
[2017-03-13] MEDS: ACCU-CHEK XX SCH ×6 (02:40→21:00)
[2017-03-13] MEDS: DEXTROSE 5%-0.9% NACL 1,000 ML IV SCH ×2 (03:08)
[2017-03-13 04:06] LABS: AADO2 Arterial 224.5 mmHg (7.0-24.0); Allen Test ACCEPTAB; Arterial Base Excess -6.7 mmol/L (-3.0-3); Arterial COHb 0.3 % (0.0-3.0); Arterial Fraction of Oxyhgb 96.4 % (93.0-99.0); Arterial HCO3 17.7 mmol/L (22.0-26.0); Arterial MetHb 0.3 % (0.0-1.5); Arterial Total Hemglobin 9.7 g/dl (12.0-18.0); Blood Gas Mean Airway Pressure 11; MODE VENT - AC
[2017-03-13] MEDS: VANCOMYCIN 750 MG in DEXTROSE 5% 150 ML IVPB SCH (04:41)
[2017-03-13] MEDS ORDERED: ALBUMIN HUMAN 25% 100 ML IV ONE (05:00)
[2017-03-13] MEDS: PANTOPRAZOLE 40 MG INJ IV SCH (05:55)
[2017-03-13] MEDS ORDERED: PANTOPRAZOLE 40 MG INJ IV SCH (06:00)
[2017-03-13 06:15] LABS: INR 2.22; PROTIME 24.9 Sec (12.2-14.2); PT RATIO 1.9
[2017-03-13 06:16] LABS: PARTIAL THROMBOPLASTIN TIME 61.2 Sec (25.0-35.0)
[2017-03-13 06:20] LABS: MAGNESIUM 1.5 mg/dl (1.7-2.5); PHOSPHORUS 4.3 mg/dl (2.5-4.9)
[2017-03-13 06:44] LABS: ALBUMIN 1.6 g/dl (3.3-4.9); ALBUMIN/GLOBULIN RATIO 0.47; BILIRUBIN,DIRECT 6.6 mg/dl (0.00-0.20); BILIRUBIN,INDIRECT 1.7 mg/dl (0-1.1); BILIRUBIN,TOTAL 8.3 mg/dl (0.2-1.3); CALCIUM 9.2 mg/dl (8.4-10.2); CREATININE 0.95 mg/dl (0.44-1.00); POTASSIUM 3.4 mmol/L (3.5-5.1)
[2017-03-13 07:23] LABS: ABNORMAL IP MESSAGE 1; BASOPHIL # 0.1 10^3/ul (0.0-0.1); BASOPHILS % 0.4 % (0.0-2.0); EOSINOPHILS # 0.2 10^3/ul (0.0-0.5); EOSINOPHILS % 1.2 % (0.0-7.0); HEMATOCRIT 26.6 % (37.0-47.0); HEMOGLOBIN 8.7 g/dl (12.0-16.0); LYMPHOCYTES # 2.4 10^3/ul (0.8-2.9); LYMPHOCYTES % 13.5 % (15.0-51.0); MEAN CORPUSCULAR HEMOGLOBIN 27.7 pg (29.0-33.0); MEAN CORPUSCULAR HGB CONC 32.7 g/dl (32.0-37.0); MEAN CORPUSCULAR VOLUME 84.7 fl (82.0-101.0); MONOCYTE # 0.6 10^3/ul (0.3-0.9); MONOCYTES % 3.4 % (0.0-11.0); NEUTROPHIL # 14.2 10^3/ul (1.6-7.5); NEUTROPHILS % 80.4 % (39.0-77.0); RED BLOOD COUNT 3.14 10^6/ul (4.20-5.40); RED CELL DISTRIBUTION WIDTH 19.4 % (11.5-14.5); WHITE BLOOD COUNT 17.6 10^3/ul (4.8-10.8)
[2017-03-13 07:25] LABS: PLATELET COUNT 25 10^3/UL (140-415)
[2017-03-13 07:26] LABS: POSITIVE DIFF @See below
[2017-03-13] MEDS ORDERED: COLISTIMETHATE 75 MG in SOD CHLORIDE 0.9% 100 ML IVPB SCH (09:00)
[2017-03-13] MEDS ORDERED: BALSAM PERU/CASTOR OIL 60 GM TUBE TOP SCH (09:00)
[2017-03-13] MEDS ORDERED: SODIUM HYPOCHLORITE 0.125% 473 ML BTL IRR SCH (09:00)
[2017-03-13] MEDS ORDERED: FUROSEMIDE 20 MG INJ IV SCH (09:00)
[2017-03-13] MEDS: FUROSEMIDE 20 MG INJ IV SCH (09:00)
[2017-03-13] MEDS ORDERED: LINEZOLID 600 MG/D5W (PMX) 300 ML IVPB SCH (09:00)
[2017-03-13] MEDS ORDERED: COLLAGENASE 30 GM TUBE TOP SCH (09:00)
[2017-03-13] MEDS: SODIUM HYPOCHLORITE 0.125% 473 ML BTL IRR SCH (09:07)
[2017-03-13] MEDS: MIDODRINE 5 MG TAB NGT SCH ×3 (09:07→16:26)
[2017-03-13] MEDS: BALSAM PERU/CASTOR OIL 60 GM TUBE TOP SCH (09:08)
[2017-03-13] MEDS: COLLAGENASE 30 GM TUBE TOP SCH (09:08)
--- NOTE | 2017-03-13 09:28 | PN ---
Date/Time of Note Date/Time of Note DATE: 03/13/17 TIME: 09:25 Assessment/Plan Lines/Catheters IV Catheter Type (from Nrsg): Central Line Elder in Place (from Nrsg): Yes Assessment/Plan Chief Complaint/Hosp Course Additional Assessment/Plan Respiratory failure Pancreatitis SP central line placement, site clean will continue supp care Problems: Subjective 24 Hr Interval Summary Constitutional: ambulates, improved Pain Control: mild Exam/Review of Systems Vital Signs Vitals Vital Signs Date Time Temp Pulse Resp B/P Pulse Ox O2 Delivery O2 Flow Rate FiO2 03/13/17 08:01 107 20 100 50 03/13/17 07:45 76/61 03/13/17 07:30 Mechanical Ventilator 03/13/17 04:00 97.1 Intake and Output 03/12/17 03/12/17 03/13/17 15:00 23:00 07:00 Intake Total 1904.96 ml 657.10 ml 2304.16 ml Output Total 195 ml 170 ml 76 ml Balance 1709.96 ml 487.10 ml 2228.16 ml Exam Respiratory: clear to auscultation, normal air movement Cardiovascular: nl pulses, regular rate and rhythm Gastrointestinal: nl liver, spleen, non-tender, soft Results Result Diagram: 03/13/1741903/13/17419 LUIZ SEQUEIRA MD Mar 13, 2017 09:28
[2017-03-13] MEDS: DEXTROSE 5% IVPB SCH ×2 (09:53→21:41)
[2017-03-13] MEDS: COLISTIMETHATE IVPB SCH ×2 (09:53→21:41)
--- NOTE | 2017-03-13 10:48 | PN ---
Date/Time of Note Date/Time of Note DATE: 03/13/17 TIME: 09:37 Assessment/Plan VTE Prophylaxis VTE Prophylaxis Intervention: SCD's Lines/Catheters IV Catheter Type (from Nrsg): Central Line Central line still needed: Yes (IV access, multiple pressors) Urinary Cath still in place: Yes Reason Cath still needed: terminal illness/intractable pain, other (indicate) Assessment/Plan Assessment/Plan 86 yo female with: 1. Acute Respiratory failure, in setting of 3rd spacing, atelectasis, severe anemia and Norbert glabrata fungemia. Extremely poor overall clinical status and dismal prognosis as of this morning, patient on 4 pressors, patient in ICU on mechanical ventilation due to deteriorated respiratory status. Unfortunately declined even further overnight, now on 4 pressors. Currently on FiO2 down to 30%, and more hemodynamically unstable requiring 2 pressors now. Prognosis extremely poor as patient seems to have a known source of infection with sputum positive for MDRO Acinetobacter. CXR mostly unchanged with pulmonary vascular congestion, small to moderate pleural effusions even s/p thoracentesis 02/20 with -300 cc and another right thoracentesis 02/23 with removal of less than 100 cc, Continue current antibiotics and further antibiotic adjustment per ID, Patient now DNR, extremely poor clinical status and dismal prognosis, she should be comfort measures at this time. We will follow-up with the DPOA today 2. Sepsis and Septic shock, from Norbert glabrata fungemia and septicemia . She does have a risk factors but this is the first time her blood cultures are growing yeast, she has been on Diflucan throughout her admission and at discharge from the outside hospital. Patient has been switched to Cancidas x almost 2 weeks now. PICC line finally removed 03/05 with tip sent for culture, patient has a central line currently. Repeat blood cx NGTD. Hopefully in the next 2-3 days if blood cultures remain negative, will see if patient can have a PICC line replaced as likely she will need TPN resumed. Repeat blood cultures 02/28 with 1/2 blood cultures still positive with norbert glabrata, it is unclear if it is culture from the PICC line or peripheral. Repeat blood cultures again 03/02 growing Norbert Glabrata Repeat blood cx 03/06 and 03/08 NGTD. Sputum cultures most recent with Acinetobacter fitzgerald resistant, colistin was ordered per ID Also with concerns for possible cholangitis based on current clinical picture, this has been addressed with gastroenterology Continue current antibiotics per Infectious diseases. Patient is currently intubated, minimally responsive now, declining rapidly now 1 4 pressures, ongoing septic shock and metabolic acidosis. Will DC TPN, keep bicarb drip going until final decisions for comfort measures obtained from the DPOA. 3. S/p Severe pancreatitis with pseudocyst, on TPN and No tube feeding per GI. Now with also concerns for biliary stent obstruction. Dr Hill following, discussed earlier this week. CAT scan of the abdomen and pelvis has been compared to the one done at [facility] approximately 3 weeks ago, cholecystostomy tube has been removed however there is concern as the patient has a new fluid collection in addition of the previous pseudocyst also previous pseudocyst seems to have increased in size and there is concern for possible infection. We were planing for drainage of 2nd cyst since admission, but INR at 1.4 and patient clinically declined further now intubated and on 2 pressors with ongoing sepsis and hemodynamic instability. Now even higher INR of 1.8 despite Vit K given, likely in DIC Per Surgery note couple of weeks ago, ? bleeding in pseudocyst but patient was not stable to get bleeding scan due to fact she was on BiPAP Continue current antibiotics. Will discontinue TPN today 4. Acute on chronic anemia status post blood product transfusion at least twice during this admission, in DIC with ongoing thrombocytopenia and anemia. Bleeding scan was not done due to respiratory distress and needs for continuous BiPAP, she is now intubated and improving, is still needed will discuss with GI. No signs of acute bleeding so far however patient does have positive fecal occult blood. Appreciate GI consult, patient and her son declined EGD prior. Appreciate recommendations of Dr Hannah, may still needs CT guided drainage of 2nd pseudocyst by IR, however patient now with hemodynamic instability and intubated, likely also coagulopathic from a septic state/DIC not a candidate for IR procedure yet. 5. Septic shock with now findings of Acinetobacter MDR O in the sputum. Patient intubated, and septic with candidemia with Norbert glabrata, continue pressors for blood pressure support, unfortunately at this time declining further requiring more pressor support. Lactic acid up 2.2 today Continue current multiple antibiotics per ID management. Prognosis extremely poor to dismal, will need to be re-addressed comfort measures/end-of-life with son, bioethics currently scheduled for Friday 03/16 at 1 30 pm 6. Acute kidney injury, in setting of septic shock with recent candidemia, now Acinetobacter MDRO in the sputum. Renal function still decent, urine output dropping. Significant anasarca still noted, patient third spacing. Continue D5NS with 3 amps of bicarb at 100cc/hr, DC TPN With ongoing hemodynamic instability, requiring 4 pressors, likely patient may end up having some degree of ATN if survives this episode 7. Sinus Tachycardia: Per report from [facility] patient has sinus tachycardia. Resolved as patient in less distress currently after intubation and sedation. 8. Venous thromboembolism with episode of DVT, status post IVC filter. Repeat Doppler negative for DVT 9. Coagulopathy: S/p Vitamin K and FFP as needed for INR 1.8 but to be noted patient with VTE, s/p IVC filter. Now in DIC. 10. Hyperbilirubinemia, primarily direct, also slight elevation of alkaline phosphatase, concerns for obstructive process/biliary stent Dr Hill will discuss stent change with Son but currently patient hemodynamically unstable. Liver ultrasound showing pancreatic pseudocyst, GI following and will repeat CAT scan of the abdomen and pelvis when patient hemodynamically stable and re- address with Surgery. For now have not been able to perform CAT scan due to hemodynamic instability and increasing pressor requirements overnight. Prophylaxis: Protonix for GI prophylaxis, SCDs and status post IVC filter for DVT prophylaxis Disposition: ICU now, intubated on mechanical ventilation , attempted repeat thoracentesis right pleural effusion with very minimal output. Now with fungemia Unfortunately patient has declined over the past 4 days and even further overnight with signs of active septic picture and septic shock, new source may be cholangitis based on the current clinical picture, gastroenterology to discuss with son possible need for ERCP and stent change, but also patient with Acinetobacter in sputum. The DPOA, Jesus Muller, apparently overnight at first decided to terminally extubate the patient and go for comfort care, however he left the hospital and a few hours later came back disheveled and decided to reverse his decision, keep the patient full code on multiple pressors. He had another discussion this morning with Dr. Bhakta and did agree to a DO NOT RESUSCITATE status but would not move towards comfort measures yet. Currently no escalation of care. Patient with extremely poor clinical status and dismal prognosis, she is unlikely to make it through the weekend unfortunately. Bioethics requested and so far scheduled for Friday 03/16 at 1:30 PM DNR. Subjective 24 Hr Interval Summary Free Text/Dictation Patient keeps declining, she got even worse overnight, she is now on 4 pressors , she is acidotic, she did require multiple boluses of bicarb overnight followed by bicarb drip. I did talk to Dr. Corona this morning, he had a discussion with the son at first last night who was requesting terminal extubation and comfort measures. Patient was started on a morphine drip and there were about to start an Ativan drip when the son came back and reversed his decision and did not want any comfort measures. Now this morning after discussion with Dr. Bhakta, the son agreed to a DO NOT RESUSCITATE status. But no comfort measures yet. Patient still on 4 drips, ongoing hypotension, to me, she looks uncomfortable currently. Prognosis is dismal, likelihood to survive the day or the next couple of days slim. Exam/Review of Systems Vital Signs Vitals Vital Signs Date Time Temp Pulse Resp B/P Pulse Ox O2 Delivery O2 Flow Rate FiO2 03/13/17 08:01 107 20 100 50 03/13/17 07:45 76/61 03/13/17 07:30 Mechanical Ventilator 03/13/17 04:00 97.1 Intake and Output 03/12/17 03/12/17 03/13/17 15:00 23:00 07:00 Intake Total 1904.96 ml 657.10 ml 2304.16 ml Output Total 195 ml 170 ml 76 ml Balance 1709.96 ml 487.10 ml 2228.16 ml Exam Constitutional: frail, other (Seems uncomfortable, occasionally agitated) Respiratory: diminished breath sounds, other (Mechanical ventilation) Cardiovascular: nl pulses, regular rate and rhythm Gastrointestinal: ascites, other (Jaundiced), soft Extremities: edema (Diffuse anasarca) Neurological: lethargic, other (Minimally responsive, seems to be uncomfortable ) Results Result Diagram: 03/13/1741903/13/170 Results 24 hrs Laboratory Tests Test 03/12/17 12:45 03/12/17 17:32 03/13/17 01:24 03/13/17 02:38 Bedside Glucose 100 144 85 Blood Gas Specimen Source Blood arterial Arterial Blood Date Drawn 03/13/2017 1:27:00 AM Arterial Blood pH (Temp corrected) 7.320 L Arterial Blood pCO2 (Temp correct) 26.7 L Arterial Blood pO2 (Temp corrected) 93.3 H Arterial Blood HCO3 13.4 L Arterial Blood Base Excess -11.3 L Arterial Blood Oxygen Saturation 96.8 Shreyas Test ACCEPTAB Arterial Blood Gas Puncture Site Right Radial Arterial Blood Carboxyhemoglobin 0.3 Arterial Blood Methemoglobin 0.3 Blood Gas A-a O2 Differential 233.2 H Oxyhemoglobin Percent 96.2 Total Hemoglobin 9.6 L Blood Gas Temperature 37.0 Blood Gas Respiration Rate 16.0 Blood Gas Actual Respiration Rate 19 Blood Gas Modality VENT - AC FiO2 50.0 Blood Gas Tidal Volume 450.0 Blood Gas Mean Airway Pressure 11 Blood Gas Low PEEP Setting 5.0 Blood Gas Inspiratory Pressure 24.0 Blood Gas Notified Whom Urszula JACKSON Blood Gas Notified Time 03/13/2017 1:39:00 AM Test 03/13/17 03:30 03/13/17 04:20 03/13/17 05:17 Blood Gas Specimen Source Blood arterial Arterial Blood Date Drawn 03/13/2017 3:52:45 AM Arterial Blood pH (Temp corrected) 7.371 Arterial Blood pCO2 (Temp correct) 31.3 L Arterial Blood pO2 (Temp corrected) 96.8 H Arterial Blood HCO3 17.7 L Arterial Blood Base Excess -6.7 L Arterial Blood Oxygen Saturation 97.0 Shreyas Test ACCEPTAB Arterial Blood Gas Puncture Site Right Radial Arterial Blood Carboxyhemoglobin 0.3 Arterial Blood Methemoglobin 0.3 Blood Gas A-a O2 Differential 224.5 H Oxyhemoglobin Percent 96.4 Total Hemoglobin 9.7 L Blood Gas Temperature 37.0 Blood Gas Respiration Rate 16.0 Blood Gas Actual Respiration Rate 20 Blood Gas Modality VENT - AC FiO2 50.0 Blood Gas Tidal Volume 450.0 Blood Gas Mean Airway Pressure 11 Blood Gas Low PEEP Setting 5.0 Blood Gas Inspiratory Pressure 33.0 Blood Gas Notified Whom NASIR MANNEQUIN REFINISHER Blood Gas Notified Time 03/13/2017 4:04:55 AM White Blood Count 17.6 #H Red Blood Count 3.14 #L Hemoglobin 8.7 L Hematocrit 26.6 L Mean Corpuscular Volume 84.7 Mean Corpuscular Hemoglobin 27.7 #L Mean Corpuscular Hemoglobin Concent 32.7 # Red Cell Distribution Width 19.4 H Platelet Count 25 #*L Mean Platelet Volume Neutrophils % 80.4 H Lymphocytes % 13.5 L Monocytes % 3.4 Eosinophils % 1.2 Basophils % 0.4 Nucleated Red Blood Cells % 0.0 Neutrophils # 14.2 H Lymphocytes # 2.4 Monocytes # 0.6 Eosinophils # 0.2 Basophils # 0.1 Nucleated Red Blood Cells # 0.0 Prothrombin Time 24.9 H Prothrombin Time Ratio 1.9 INR International Normalized Ratio 2.22 Activated Partial Thromboplast Time 61.2 H Sodium Level 137 Potassium Level 3.4 L Chloride Level 105 Carbon Dioxide Level 20 L Anion Gap 15 Blood Urea Nitrogen 23 H Creatinine 0.95 Glucose Level 86 Calcium Level 9.2 Phosphorus Level 4.3 Magnesium Level 1.5 L Total Bilirubin 8.3 H Direct Bilirubin 6.60 H Indirect Bilirubin 1.7 H Aspartate Amino Transf (AST/SGOT) 59 H Alanine Aminotransferase (ALT/SGPT) 31 Alkaline Phosphatase 305 H Ammonia 30 Total Protein 5.0 #L Albumin 1.6 L Globulin 3.40 H Albumin/Globulin Ratio 0.47 Bedside Glucose 124 Medications Medications Current Medications Ondansetron HCl (Zofran Inj) 4 mg Q6H PRN IV NAUSEA AND/OR VOMITING Last administered on 02/13/17 00:36; Admin Dose 4 MG; Start 02/11/17 at 10:00 Acetaminophen (Tylenol Tab) 650 mg Q6H PRN PO PAIN LEVEL 1-3 OR FEVER Last administered on 02/25/17 19:51; Admin Dose 650 MG; Start 02/11/17 at 10:00 Bisacodyl (Dulcolax Supp) 10 mg DAILY PRN CO CONSTIPATION; Start 02/11/17 at 10 :00 Miscellaneous Information (Pending Santyl Order For Wound Care) This patient prado... PRN PRN XX WOUND CARE; Start 02/11/17 at 19:00 Collagenase (Santyl) 1 applic DAILY TOP Last administered on 03/13/17 09:08; Admin Dose 1 APPLIC; Start 02/12/17 at 13:30 Diphenhydramine HCl (Benadryl) 25 mg Q6H PRN IV ITCHING Last administered on 18:22; Admin Dose 25 MG; Start 02/12/17 at 14:00 Pantoprazole (Protonix Iv) 40 mg DAILY@06 IV Last administered on 03/13/17 05: 55; Admin Dose 40 MG; Start 02/23/17 at 06:00 Lorazepam 0.5 mg 0.5 mg Q8H PRN IV AGITATION/ANXIETY Last administered on 16:01; Admin Dose 0.5 MG; Start 02/23/17 at 13:30 Midazolam HCl 50 ml @ 1 mls/hr TITRATE IV Last administered on 03/09/17 11:30; Admin Dose 2 MLS/HR; Start 02/25/17 at 10:00 Fentanyl 100 ml @ 2.5 mls/hr TITRATE IV Last administered on 02/25/17 10:43; Admin Dose 2.5 MLS/HR; Start 02/25/17 at 10:00 Vancomycin HCl 750 mg/Dextrose/ Water 150 ml @ 75 mls/hr Q48H IVPB Last administered on 03/13/17 04:41; Admin Dose 75 MLS/HR; Start 03/03/17 at 01:00 Dextrose/Sodium Chloride (D5-NS) 1,000 ml @ 60 mls/hr [id number] IV Last administered on 03/13/17 00:00; Admin Dose 60 MLS/HR; Start 03/02/17 at 12:30 Glucose (Glutose) 15 gm Q15M PRN PO DECREASED GLUCOSE; Start 03/02/17 at 12:30 Glucose (Glutose) 22.5 gm Q15M PRN PO DECREASED GLUCOSE; Start 03/02/17 at 12: 30 Dextrose (D50w Syringe) 25 ml Q15M PRN IV DECREASED GLUCOSE Last administered on 03/02/17 12:18; Admin Dose 25 ML; Start 03/02/17 at 12:30 Dextrose (D50w Syringe) 50 ml Q15M PRN IV DECREASED GLUCOSE; Start 03/02/17 at 12:30 Glucagon (Glucagen) 1 mg Q15M PRN IM DECREASED GLUCOSE; Start 03/02/17 at 12:30 Glucose (Glutose) 15 gm Q15M PRN BUCCAL DECREASED GLUCOSE; Start 03/02/17 at 12 :30 Diagnostic Test (Pha) 1 ea 1 ea Q4 XX Last administered on 03/13/17 05:18; Admin Dose 1 EA; Start 03/04/17 at 09:00 Caspofungin 35 mg/ Sodium Chloride 250 ml @ 250 mls/hr Q24H IVPB Last administered on 03/12/17 15:52; Admin Dose 250 MLS/HR; Start 03/04/17 at 15:00 Total Parenteral Nutrition (Tpn) 1,000 ml @ 40 mls/hr Q24H IV Last administered on 03/13/17 00:00; Admin Dose 40 MLS/HR; Start 03/06/17 at 20:00 Sodium Hypochlorite (Dakin'S (1/4 Strength)) 1 applic DAILY IRR Last administered on 03/13/17 09:07; Admin Dose 1 APPLIC; Start 03/07/17 at 09:00 Morphine Sulfate (morphine) 2 mg Q4H PRN IV PAIN LEVEL 7-10 Last administered on 03/12/17 16:01; Admin Dose 2 MG; Start 03/07/17 at 10:00 Furosemide 20 mg 20 mg DAILY IV Last administered on 03/11/17 10:21; Admin Dose 20 MG; Start 03/11/17 at 10:00 Colistimethate Sodium 75 mg/ Dextrose 100 ml @ 200 mls/hr Q12 IVPB Last administered on 03/12/17 14:29; Admin Dose 200 MLS/HR; Start 03/12/17 at 12:30 Norepinephrine 32 mg/Dextrose 500 ml @ 0.93 mls/hr TITRATE IV Last administered on 03/13/17 07:49; Admin Dose 28.12 MLS/HR; Start 03/12/17 at 23: 30 Vasopressin 60 unit/Dextrose 60 ml @ 1.2 mls/hr Q12H IV Last administered on 23:30; Admin Dose 2.4 MLS/HR; Start 03/12/17 at 23:30 Phenylephrine HCl 80 mg/Dextrose 500 ml @ 37.5 mls/hr TITRATE IV Last administered on 03/13/17 09:12; Admin Dose 112.5 MLS/HR; Start 03/12/17 at 23: 30 Epinephrine/ Dextrose (EPINEPHrine/D5W) 250 ml @ 3.75 mls/hr TITRATE IV Last administered on 03/13/17 00:14; Admin Dose 3.75 MLS/HR; Start 03/12/17 at 23:30 Lorazepam (Ativan) 2 mg Q1H PRN IV ANXIETY; Start 03/12/17 at 23:30 Morphine Sulfate 5 mg 5 mg Q1H PRN IV PAIN; Start 03/12/17 at 23:30 Linezolid (Zyvox 600mg/D5W (Pmx)) 300 ml @ 300 mls/hr Q12 IVPB ; Start at 09:00; Status UNV Acetaminophen (Tylenol Liquid) 650 mg Q6H PRN NGT PAIN AND OR ELEVATED TEMP; Start 03/12/17 at 23:30 Alprazolam (Xanax) 0.25 mg Q12H PRN NGT ANXIETY; Start 03/12/17 at 23:30 Docusate Sodium (Colace Liquid Cup) 100 mg BID PRN NGT CONSTIPATION; Start 05/19 at 23:30 Midodrine 5 mg 5 mg TID@09,,17 NGT Last administered on 03/13/17 09:07; Admin Dose 5 MG; Start 03/13/17 at 09:00 Sodium Bicarbonate/ Sodium Chloride (Na Bicarb/NS) 1,000 ml @ 100 mls/hr Q10H IV Last administered on 03/13/17 02:50; Admin Dose 100 MLS/HR; Start 03/13/17 at 02:30 BONIFACIO COWART Mar 13, 2017 10:03
[2017-03-13] MEDS ORDERED: MAGNESIUM SULFATE 2 GM/50 ML 50 ML IVPB ONE (11:00)
[2017-03-13] MEDS ORDERED: POTASSIUM CHLORIDE 250 ML IVPB ONE (11:00)
[2017-03-13] MEDS ORDERED: SODIUM BICARBONATE (IV ADD) 150 MEQ in DEXTROSE 5% 1,000 ML IV SCH (12:00)
[2017-03-13] MEDS: VASOPRESSIN 60 UNIT in DEXTROSE 5% 57 ML IV SCH (12:30)
[2017-03-13] MEDS: SODIUM BICARBONATE (IV ADD) 150 MEQ in DEXTROSE 5% 1,000 ML IV SCH (13:46)
--- NOTE | 2017-03-13 13:53 | PN ---
Date/Time of Note Date/Time of Note DATE: 03/13/17 TIME: 13:49 Assessment/Plan VTE Prophylaxis VTE Prophylaxis Intervention: SCD's Lines/Catheters IV Catheter Type (from Nrs): Central Line Central line still needed: Yes Urinary Cath still in place: Yes Reason Cath still needed: urinary retention Assessment/Plan Assessment/Plan Septic shock * Acute respiratory failure management c/o pulmonary * Encephalopathy * Anemia/recurrent/probable GI bleeding * Refused EGD * Pancreatitis with Pancreatic pseudocyst/awaiting drainage * Coagulopathy * H/O tube cholecystostomy/biliary stent * Rule out stent occlusion Plan : * Continue present regimen * monitor hemoglobin and hematocrit daily and transfuse per protocol * further orders will depend on clinical course * case discussed with Dr Hill Subjective 24 Hr Interval Summary Free Text/Dictation * course reviewed with RN * Patient seen and examined * patient on 4 pressors * patient deteriorating * DNR status Exam/Review of Systems Vital Signs Vitals Vital Signs Date Time Temp Pulse Resp B/P Pulse Ox O2 Delivery O2 Flow Rate FiO2 03/13/17 12:45 119 28 70/58 98 Mechanical Ventilator 03/13/17 09:55 50 03/13/17 08:30 97.2 Intake and Output 03/12/17 03/12/17 03/13/17 14:59 22:59 06:59 Intake Total 1612.46 ml 1084.70 ml 1976.66 ml Output Total 250 ml 170 ml 81 ml Balance 1362.46 ml 914.70 ml 1895.66 ml Exam Constitutional: frail ENMT: intubated Respiratory: crackles/rales, diminished breath sounds, other (ventilator) Cardiovascular: regular rate and rhythm Gastrointestinal: bowel sounds, distended, non-tender, No rebound or guarding Extremities: edema, other (weak pulses), pitting pedal edema Neurological: unresponsive Skin: rash or lesions Lymph: nl lymph nodes Results Result Diagram: 03/13/1741903/13/170 Results 24 hrs Laboratory Tests Test 03/12/17 17:32 03/13/17 01:24 03/13/17 02:38 03/13/17 03:30 Bedside Glucose 144 85 Blood Gas Specimen Source Blood arterial Blood arterial Arterial Blood Date Drawn 03/13/2017 1:27:00 AM 03/13/2017 3:52:45 AM Arterial Blood pH (Temp corrected) 7.320 L 7.371 Arterial Blood pCO2 (Temp correct) 26.7 L 31.3 L Arterial Blood pO2 (Temp corrected) 93.3 H 96.8 H Arterial Blood HCO3 13.4 L 17.7 L Arterial Blood Base Excess -11.3 L -6.7 L Arterial Blood Oxygen Saturation 96.8 97.0 Shreyas Test ACCEPTAB ACCEPTAB Arterial Blood Gas Puncture Site Right Radial Right Radial Arterial Blood Carboxyhemoglobin 0.3 0.3 Arterial Blood Methemoglobin 0.3 0.3 Blood Gas A-a O2 Differential 233.2 H 224.5 H Oxyhemoglobin Percent 96.2 96.4 Total Hemoglobin 9.6 L 9.7 L Blood Gas Temperature 37.0 37.0 Blood Gas Respiration Rate 16.0 16.0 Blood Gas Actual Respiration Rate 19 20 Blood Gas Modality VENT - AC VENT - AC FiO2 50.0 50.0 Blood Gas Tidal Volume 450.0 450.0 Blood Gas Mean Airway Pressure 11 11 Blood Gas Low PEEP Setting 5.0 5.0 Blood Gas Inspiratory Pressure 24.0 33.0 Blood Gas Notified Whom Urszula BEST RCP Blood Gas Notified Time 03/13/2017 1:39:00 AM 03/13/2017 4:04:55 AM Test 03/13/17 04:20 03/13/17 05:17 03/13/17 09:48 03/13/17 12:47 White Blood Count 17.6 #H Red Blood Count 3.14 #L Hemoglobin 8.7 L Hematocrit 26.6 L Mean Corpuscular Volume 84.7 Mean Corpuscular Hemoglobin 27.7 #L Mean Corpuscular Hemoglobin Concent 32.7 # Red Cell Distribution Width 19.4 H Platelet Count 25 #*L Mean Platelet Volume Neutrophils % 80.4 H Lymphocytes % 13.5 L Monocytes % 3.4 Eosinophils % 1.2 Basophils % 0.4 Nucleated Red Blood Cells % 0.0 Neutrophils # 14.2 H Lymphocytes # 2.4 Monocytes # 0.6 Eosinophils # 0.2 Basophils # 0.1 Nucleated Red Blood Cells # 0.0 Prothrombin Time 24.9 H Prothrombin Time Ratio 1.9 INR International Normalized Ratio 2.22 Activated Partial Thromboplast Time 61.2 H Sodium Level 137 Potassium Level 3.4 L Chloride Level 105 Carbon Dioxide Level 20 L Anion Gap 15 Blood Urea Nitrogen 23 H Creatinine 0.95 Glucose Level 86 Calcium Level 9.2 Phosphorus Level 4.3 Magnesium Level 1.5 L Total Bilirubin 8.3 H Direct Bilirubin 6.60 H Indirect Bilirubin 1.7 H Aspartate Amino Transf (AST/SGOT) 59 H Alanine Aminotransferase (ALT/SGPT) 31 Alkaline Phosphatase 305 H Ammonia 30 Total Protein 5.0 #L Albumin 1.6 L Globulin 3.40 H Albumin/Globulin Ratio 0.47 Bedside Glucose 124 135 134 Medications Medications Current Medications Ondansetron HCl (Zofran Inj) 4 mg Q6H PRN IV NAUSEA AND/OR VOMITING Last administered on 02/13/17 00:36; Admin Dose 4 MG; Start 02/11/17 at 10:00 Acetaminophen (Tylenol Tab) 650 mg Q6H PRN PO PAIN LEVEL 1-3 OR FEVER Last administered on 02/25/17 19:51; Admin Dose 650 MG; Start 02/11/17 at 10:00 Bisacodyl (Dulcolax Supp) 10 mg DAILY PRN [place] CONSTIPATION; Start 02/11/17 at 10 :00 Miscellaneous Information (Pending Santyl Order For Wound Care) This patient prado... PRN PRN XX WOUND CARE; Start 02/11/17 at 19:00 Collagenase (Santyl) 1 applic DAILY TOP Last administered on 03/13/17 09:08; Admin Dose 1 APPLIC; Start 02/12/17 at 13:30 Diphenhydramine HCl (Benadryl) 25 mg Q6H PRN IV ITCHING Last administered on 18:22; Admin Dose 25 MG; Start 02/12/17 at 14:00 Pantoprazole (Protonix Iv) 40 mg DAILY@06 IV Last administered on 03/13/17 05: 55; Admin Dose 40 MG; Start 02/23/17 at 06:00 Lorazepam 0.5 mg 0.5 mg Q8H PRN IV AGITATION/ANXIETY Last administered on 16:01; Admin Dose 0.5 MG; Start 02/23/17 at 13:30 Midazolam HCl 50 ml @ 1 mls/hr TITRATE IV Last administered on 03/09/17 11:30; Admin Dose 2 MLS/HR; Start 02/25/17 at 10:00 Fentanyl 100 ml @ 2.5 mls/hr TITRATE IV Last administered on 02/25/17 10:43; Admin Dose 2.5 MLS/HR; Start 02/25/17 at 10:00 Vancomycin HCl/ Dextrose/Water (Vancocin/D5W) 150 ml @ 75 mls/hr Q48H IVPB Last administered on 03/13/17 04:41; Admin Dose 75 MLS/HR; Start 03/03/17 at 01: 00 Glucose (Glutose) 15 gm Q15M PRN PO DECREASED GLUCOSE; Start 03/02/17 at 12:30 Glucose (Glutose) 22.5 gm Q15M PRN PO DECREASED GLUCOSE; Start 03/02/17 at 12: 30 Dextrose (D50w Syringe) 25 ml Q15M PRN IV DECREASED GLUCOSE Last administered on 03/02/17 12:18; Admin Dose 25 ML; Start 03/02/17 at 12:30 Dextrose (D50w Syringe) 50 ml Q15M PRN IV DECREASED GLUCOSE; Start 03/02/17 at 12:30 Glucagon (Glucagen) 1 mg Q15M PRN IM DECREASED GLUCOSE; Start 03/02/17 at 12:30 Glucose (Glutose) 15 gm Q15M PRN BUCCAL DECREASED GLUCOSE; Start 03/02/17 at 12 :30 Diagnostic Test (Pha) 1 ea 1 ea Q4 XX Last administered on 03/13/17 12:48; Admin Dose 1 EA; Start 03/04/17 at 09:00 Caspofungin/ Sodium Chloride (Cancidas/NS) 250 ml @ 250 mls/hr Q24H IVPB Last administered on 03/12/17 15:52; Admin Dose 250 MLS/HR; Start 03/04/17 at 15:00 Sodium Hypochlorite (Dakin'S (1/4 Strength)) 1 applic DAILY IRR Last administered on 03/13/17 09:07; Admin Dose 1 APPLIC; Start 03/07/17 at 09:00 Morphine Sulfate (morphine) 2 mg Q4H PRN IV PAIN LEVEL 7-10 Last administered on 03/12/17 16:01; Admin Dose 2 MG; Start 03/07/17 at 10:00 Furosemide 20 mg 20 mg DAILY IV Last administered on 03/11/17 10:21; Admin Dose 20 MG; Start 03/11/17 at 10:00 Colistimethate Sodium 75 mg/ Dextrose 100 ml @ 200 mls/hr Q12 IVPB Last administered on 03/13/17 09:53; Admin Dose 200 MLS/HR; Start 03/12/17 at 12:30 Norepinephrine 32 mg/Dextrose 500 ml @ 0.93 mls/hr TITRATE IV Last administered on 03/13/17 07:49; Admin Dose 28.12 MLS/HR; Start 03/12/17 at 23: 30 Vasopressin 60 unit/Dextrose 60 ml @ 1.2 mls/hr Q12H IV Last administered on 12:30; Admin Dose 2.4 MLS/HR; Start 03/12/17 at 23:30 Phenylephrine HCl 80 mg/Dextrose 500 ml @ 37.5 mls/hr TITRATE IV Last administered on 03/13/17 12:52; Admin Dose 112.5 MLS/HR; Start 03/12/17 at 23: 30 Epinephrine/ Dextrose (EPINEPHrine/D5W) 250 ml @ 3.75 mls/hr TITRATE IV Last administered on 03/13/17 00:14; Admin Dose 3.75 MLS/HR; Start 03/12/17 at 23:30 Lorazepam (Ativan) 2 mg Q1H PRN IV ANXIETY; Start 03/12/17 at 23:30 Morphine Sulfate 5 mg 5 mg Q1H PRN IV PAIN; Start 03/12/17 at 23:30 Linezolid (Zyvox 600mg/D5W (Pmx)) 300 ml @ 300 mls/hr Q12 IVPB ; Start at 09:00; Status UNV Acetaminophen (Tylenol Liquid) 650 mg Q6H PRN NGT PAIN AND OR ELEVATED TEMP; Start 03/12/17 at 23:30 Alprazolam (Xanax) 0.25 mg Q12H PRN NGT ANXIETY; Start 03/12/17 at 23:30 Docusate Sodium (Colace Liquid Cup) 100 mg BID PRN NGT CONSTIPATION; Start 05/19 at 23:30 Midodrine 5 mg 5 mg TID@,13,17 NGT Last administered on 03/13/17 12:48; Admin Dose 5 MG; Start 03/13/17 at 09:00 Potassium Chloride 250 ml @ 62.5 mls/hr ONCE ONCE IVPB Last administered on 13:42; Admin Dose 62.5 MLS/HR; Start 03/13/17 at 11:00; Stop 03/13/17 at 14:59 Sodium Bicarbonate/ Dextrose (Na Bicarb/D5W) 1,150 ml @ 100 mls/hr [id number] IV Last administered on 03/13/17 13:46; Admin Dose 100 MLS/HR; Start 03/13/17 at 12:08 LUZMARIA SPAIN NP Mar 13, 2017 13:53
--- NOTE | 2017-03-13 14:45 | CONS ---
Date/Time of Note Date/Time of Note DATE: 03/13/17 TIME: 14:44 Consult Date/Type/Reason Admit Date/Time Feb 11, 2017 at 05:28 Initial Consult Date 02/21/17 Type of Consultation: Pulmonary Ordering Provider: BONIFACIO COWART Subjective Patient condition continues to deteriorate. She is on multiple vasopressors remains somnolent. Objective Vital Signs Date Time Temp Pulse Resp B/P Pulse Ox O2 Delivery O2 Flow Rate FiO2 03/13/17 14:15 89 21 85/51 95 Mechanical Ventilator 03/13/17 13:15 50 03/13/17 08:30 97.2 Intake and Output 03/12/17 03/12/17 03/13/17 14:59 22:59 06:59 Intake Total 1612.46 ml 1084.70 ml 1976.66 ml Output Total 250 ml 170 ml 81 ml Balance 1362.46 ml 914.70 ml 1895.66 ml Exam PHYSICAL EXAMINATION GENERAL: Elderly lady orally intubated on mechanical ventilation VITAL SIGNS: see below. HEENT: Pupils equal, round, and reactive to light. CARDIAC: S1, S2, 1/6 systolic ejection murmur CHEST: Diminished air entry bilaterally. ABDOMEN: Mildly distended. Mild tenderness to palpation. Diminished bowel sounds. EXTREMITIES: No cyanosis, clubbing edema +1 NEUROLOGIC: Generalized weakness Results/Medications Result Diagram: 03/13/17 0420 03/13/17 0420 Results 24 hrs Laboratory Tests Test 03/12/17 17:32 03/13/17 01:24 03/13/17 02:38 03/13/17 03:30 Bedside Glucose 144 85 Blood Gas Specimen Source Blood arterial Blood arterial Arterial Blood Date Drawn 03/13/2017 1:27:00 AM 03/13/2017 3:52:45 AM Arterial Blood pH (Temp corrected) 7.320 L 7.371 Arterial Blood pCO2 (Temp correct) 26.7 L 31.3 L Arterial Blood pO2 (Temp corrected) 93.3 H 96.8 H Arterial Blood HCO3 13.4 L 17.7 L Arterial Blood Base Excess -11.3 L -6.7 L Arterial Blood Oxygen Saturation 96.8 97.0 Shreyas Test ACCEPTAB ACCEPTAB Arterial Blood Gas Puncture Site Right Radial Right Radial Arterial Blood Carboxyhemoglobin 0.3 0.3 Arterial Blood Methemoglobin 0.3 0.3 Blood Gas A-a O2 Differential 233.2 H 224.5 H Oxyhemoglobin Percent 96.2 96.4 Total Hemoglobin 9.6 L 9.7 L Blood Gas Temperature 37.0 37.0 Blood Gas Respiration Rate 16.0 16.0 Blood Gas Actual Respiration Rate 19 20 Blood Gas Modality VENT - AC VENT - AC FiO2 50.0 50.0 Blood Gas Tidal Volume 450.0 450.0 Blood Gas Mean Airway Pressure 11 11 Blood Gas Low PEEP Setting 5.0 5.0 Blood Gas Inspiratory Pressure 24.0 33.0 Blood Gas Notified Whom Urszula [employer] Blood Gas Notified Time 03/13/2017 1:39:00 AM 03/13/2017 4:04:55 AM Test 03/13/17 04:20 03/13/17 05:17 03/13/17 09:48 03/13/17 12:47 White Blood Count 17.6 #H Red Blood Count 3.14 #L Hemoglobin 8.7 L Hematocrit 26.6 L Mean Corpuscular Volume 84.7 Mean Corpuscular Hemoglobin 27.7 #L Mean Corpuscular Hemoglobin Concent 32.7 # Red Cell Distribution Width 19.4 H Platelet Count 25 #*L Mean Platelet Volume Neutrophils % 80.4 H Lymphocytes % 13.5 L Monocytes % 3.4 Eosinophils % 1.2 Basophils % 0.4 Nucleated Red Blood Cells % 0.0 Neutrophils # 14.2 H Lymphocytes # 2.4 Monocytes # 0.6 Eosinophils # 0.2 Basophils # 0.1 Nucleated Red Blood Cells # 0.0 Prothrombin Time 24.9 H Prothrombin Time Ratio 1.9 INR International Normalized Ratio 2.22 Activated Partial Thromboplast Time 61.2 H Sodium Level 137 Potassium Level 3.4 L Chloride Level 105 Carbon Dioxide Level 20 L Anion Gap 15 Blood Urea Nitrogen 23 H Creatinine 0.95 Glucose Level 86 Calcium Level 9.2 Phosphorus Level 4.3 Magnesium Level 1.5 L Total Bilirubin 8.3 H Direct Bilirubin 6.60 H Indirect Bilirubin 1.7 H Aspartate Amino Transf (AST/SGOT) 59 H Alanine Aminotransferase (ALT/SGPT) 31 Alkaline Phosphatase 305 H Ammonia 30 Total Protein 5.0 #L Albumin 1.6 L Globulin 3.40 H Albumin/Globulin Ratio 0.47 Bedside Glucose 124 135 134 Medications Current Medications Ondansetron HCl (Zofran Inj) 4 mg Q6H PRN IV NAUSEA AND/OR VOMITING Last administered on 02/13/17 00:36; Admin Dose 4 MG; Start 02/11/17 at 10:00 Acetaminophen (Tylenol Tab) 650 mg Q6H PRN PO PAIN LEVEL 1-3 OR FEVER Last administered on 02/25/17 19:51; Admin Dose 650 MG; Start 02/11/17 at 10:00 Bisacodyl (Dulcolax Supp) 10 mg DAILY PRN [place] CONSTIPATION; Start 02/11/17 at 10 :00 Miscellaneous Information (Pending Santyl Order For Wound Care) This patient prado... PRN PRN XX WOUND CARE; Start 02/11/17 at 19:00 Collagenase (Santyl) 1 applic DAILY TOP Last administered on 03/13/17 09:08; Admin Dose 1 APPLIC; Start 02/12/17 at 13:30 Diphenhydramine HCl (Benadryl) 25 mg Q6H PRN IV ITCHING Last administered on 18:22; Admin Dose 25 MG; Start 02/12/17 at 14:00 Pantoprazole (Protonix Iv) 40 mg DAILY@06 IV Last administered on 03/13/17 05: 55; Admin Dose 40 MG; Start 02/23/17 at 06:00 Lorazepam 0.5 mg 0.5 mg Q8H PRN IV AGITATION/ANXIETY Last administered on 16:01; Admin Dose 0.5 MG; Start 02/23/17 at 13:30 Midazolam HCl 50 ml @ 1 mls/hr TITRATE IV Last administered on 03/09/17 11:30; Admin Dose 2 MLS/HR; Start 02/25/17 at 10:00 Fentanyl 100 ml @ 2.5 mls/hr TITRATE IV Last administered on 02/25/17 10:43; Admin Dose 2.5 MLS/HR; Start 02/25/17 at 10:00 Vancomycin HCl/ Dextrose/Water (Vancocin/D5W) 150 ml @ 75 mls/hr Q48H IVPB Last administered on 03/13/17 04:41; Admin Dose 75 MLS/HR; Start 03/03/17 at 01: 00 Glucose (Glutose) 15 gm Q15M PRN PO DECREASED GLUCOSE; Start 03/02/17 at 12:30 Glucose (Glutose) 22.5 gm Q15M PRN PO DECREASED GLUCOSE; Start 03/02/17 at 12: 30 Dextrose (D50w Syringe) 25 ml Q15M PRN IV DECREASED GLUCOSE Last administered on 03/02/17 12:18; Admin Dose 25 ML; Start 03/02/17 at 12:30 Dextrose (D50w Syringe) 50 ml Q15M PRN IV DECREASED GLUCOSE; Start 03/02/17 at 12:30 Glucagon (Glucagen) 1 mg Q15M PRN IM DECREASED GLUCOSE; Start 03/02/17 at 12:30 Glucose (Glutose) 15 gm Q15M PRN BUCCAL DECREASED GLUCOSE; Start 03/02/17 at 12 :30 Diagnostic Test (Pha) 1 ea 1 ea Q4 XX Last administered on 03/13/17 12:48; Admin Dose 1 EA; Start 03/04/17 at 09:00 Caspofungin/ Sodium Chloride (Cancidas/NS) 250 ml @ 250 mls/hr Q24H IVPB Last administered on 03/12/17 15:52; Admin Dose 250 MLS/HR; Start 03/04/17 at 15:00 Sodium Hypochlorite (Dakin'S (1/4 Strength)) 1 applic DAILY IRR Last administered on 03/13/17 09:07; Admin Dose 1 APPLIC; Start 03/07/17 at 09:00 Morphine Sulfate (morphine) 2 mg Q4H PRN IV PAIN LEVEL 7-10 Last administered on 03/12/17 16:01; Admin Dose 2 MG; Start 03/07/17 at 10:00 Furosemide 20 mg 20 mg DAILY IV Last administered on 03/11/17 10:21; Admin Dose 20 MG; Start 03/11/17 at 10:00 Colistimethate Sodium 75 mg/ Dextrose 100 ml @ 200 mls/hr Q12 IVPB Last administered on 03/13/17 09:53; Admin Dose 200 MLS/HR; Start 03/12/17 at 12:30 Norepinephrine 32 mg/Dextrose 500 ml @ 0.93 mls/hr TITRATE IV Last administered on 03/13/17 07:49; Admin Dose 28.12 MLS/HR; Start 03/12/17 at 23: 30 Vasopressin 60 unit/Dextrose 60 ml @ 1.2 mls/hr Q12H IV Last administered on 12:30; Admin Dose 2.4 MLS/HR; Start 03/12/17 at 23:30 Phenylephrine HCl 80 mg/Dextrose 500 ml @ 37.5 mls/hr TITRATE IV Last administered on 03/13/17 12:52; Admin Dose 112.5 MLS/HR; Start 03/12/17 at 23: 30 Epinephrine/ Dextrose (EPINEPHrine/D5W) 250 ml @ 3.75 mls/hr TITRATE IV Last administered on 03/13/17 00:14; Admin Dose 3.75 MLS/HR; Start 03/12/17 at 23:30 Lorazepam (Ativan) 2 mg Q1H PRN IV ANXIETY; Start 03/12/17 at 23:30 Morphine Sulfate 5 mg 5 mg Q1H PRN IV PAIN; Start 03/12/17 at 23:30 Linezolid (Zyvox 600mg/D5W (Pmx)) 300 ml @ 300 mls/hr Q12 IVPB ; Start at 09:00; Status UNV Acetaminophen (Tylenol Liquid) 650 mg Q6H PRN NGT PAIN AND OR ELEVATED TEMP; Start 03/12/17 at 23:30 Alprazolam (Xanax) 0.25 mg Q12H PRN NGT ANXIETY; Start 03/12/17 at 23:30 Docusate Sodium (Colace Liquid Cup) 100 mg BID PRN NGT CONSTIPATION; Start 05/19 at 23:30 Midodrine 5 mg 5 mg TID@,,17 NGT Last administered on 03/13/17 12:48; Admin Dose 5 MG; Start 03/13/17 at 09:00 Potassium Chloride 250 ml @ 62.5 mls/hr ONCE ONCE IVPB Last administered on 13:42; Admin Dose 62.5 MLS/HR; Start 03/13/17 at 11:00; Stop 03/13/17 at 14:59 Sodium Bicarbonate/ Dextrose (Na Bicarb/D5W) 1,150 ml @ 100 mls/hr [id number] IV Last administered on 03/13/17 13:46; Admin Dose 100 MLS/HR; Start 03/13/17 at 12:08 Assessment/Plan Chief Complaint/Hosp Course Additional Assessment/Plan IMP: 1. Vent Dependent Resp Failure 2. Fungemia, polymicrobial septic shock. 3. Pancreatitis possible obstructive jaundice. 4. AMS/Encephalopathy 5. Anemia 6. Possible acute abdomen, currently not stable for CT scan given multiple pressors. Patient would not likely be surgical candidate continue current supportive care. 7. Thrombocytopenia possibly DIC RECS: 1. Vent support. 2. Continue broad-spectrum antibiotics 3. Surgery recommendations. 4. Anti-fungals per ID 5. Palliative care recommendations. 6. Continue multiple vasopressors Prognosis very poor patient is unlikely to survive this weekend 35 min cc time Problems: SLAVA MCBRIDE MD, [facility] Mar 13, 2017 14:45
[2017-03-13] MEDS: CASPOFUNGIN 35 MG in SOD CHLORIDE 0.9% 250 ML IVPB SCH (15:44)
--- NOTE | 2017-03-13 20:10 | CONS ---
Date/Time of Note Date/Time of Note DATE: 03/13/17 TIME: 20:01 Assessment/Plan Assessment/Plan Chief Complaint/Hosp Course ID PROGRESS NOTE TOTAL ABX DAY #13 => + Cancidas #14+ Colimycin#2 + Vanco IV VANCO IV ->DC 03/12 [facility] -> DC 03/08 24H INTERVAL SUMMARY * Worsening clinical status despite ABX for infectious concerns. Poor prognosis. Son made aware and code status changed from Chemical Code to DNR; however son did not opt for comfort measures. 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 Colimycin is renal toxic. Doubt ABX will reverse the poor prognosis. * 03/13/17 0420 03/13/17 0420 GENERAL: Elderly lady on mechanical ventilation orally intubated. VITAL SIGNS: see below. HEENT: Unremarkable ETT-> secure to Vent CARDIAC: S1, S2, 1/6 systolic ejection murmur CHEST: Diminished air entry bilaterally. ABDOMEN: Mildly distended. Bowel sounds present no guarding or rebound EXTREMITIES: No cyanosis, clubbing edema NEUROLOGIC: Generalized weakness ID ASSESSMENT 86 yo F with: 1. Sepsis w/Fevers >102.+ 02/24 &, leukocytosis, tachycardia => Disseminated Fungemia ->REQUIRING INCREASED PRESSORS PAST 48H * Repeat BCx via new PICC 03/06 (-) * BCx 02/25 (+) YEAST => Infx PICC line== PICC DC'd 03/06/17 * 02/25/17 YEAST UTI = FC changed * 03/12: Sputum Cx (+)ACBA = MDRO, lactic acid elevated 2.2 2. Acute hypoxic respiratory failure=> Intubated 02/24 in setting of sepsis 3.HCAP=VAP: Sputum Cx (+)ACBA->Start Colimycin 03/12 Severe pancreatitis with pseudocyst, currently on TPN. * Plan to drain pseudocyst #2 on hold due to sepsis, thrombocytopenia 4. Acute on chronic anemia status post blood product transfusion 5. Urinary retention 6. s/p VRE UTI 02/15/17 7. s/p acute kidney injury 8. Venous thromboembolism with episode of DVT, status post IVC filter. Repeat Doppler negative for DVT (+)MRSA Nares screen (+)MRSA Stool colonization (+)VRE Stool colonization INVASIVES: Left CVC 03/05/17, ETT, OGT ABX ALLERGY: PCN CURRENT ABX: #=> + Cancidas#14 + Colimycin #2 + Vanco IV TOTAL ABX DAY #14 VANCO IV ->DC 03/12 [facility] -> DC 03/08 ID RECOMMENDATIONS 1. ABX coverage was broadened yesterday due to worsening sepsis -- however ABX Tx also contributing to multi-organ failure. * ABX therapy has risks and benefits. She is growing MDRO ACBA that is difficult to treat, VRE on Zyvox now with worsening thrombocytopenia Broaden ABX coverage. 2. DC Zyvox due to thrombocytopenia -> worsening sepsis w/Failed weaning trials -- increased need for pressor support past 72H * 03/12 RESULTS: Sputum Cx (+)ACBA = MDRO, WBC down lactic acid 2.2 2. Worsening clinical status despite ABX for infectious concerns. * Poor prognosis. Son made aware and code status changed from Chemical Code to DNR; however son did not opt for comfort measures. 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 Colimycin is renal toxic. * Doubt ABX will reverse the poor prognosis. . Problems: Consultation Date/Type/Reason Admit Date/Time Feb 11, 2017 at 05:28 Initial Consult Date 02/21/17 Type of Consultation: Pulmonary Referring Provider: BONIFACIO COWART Exam/Review of Systems Vital Signs Vitals Vital Signs Date Time Temp Pulse Resp B/P Pulse Ox O2 Delivery O2 Flow Rate FiO2 03/13/17 19:35 91 25 97 50 03/13/17 19:00 49/31 Mechanical Ventilator 03/13/17 08:30 97.2 Intake and Output 03/12/17 03/12/17 03/13/17 15:00 23:00 07:00 Intake Total 1904.96 ml 657.10 ml 2304.16 ml Output Total 195 ml 170 ml 76 ml Balance 1709.96 ml 487.10 ml 2228.16 ml Results Result Diagram: 03/13/17 0420 03/13/17 0420 Results 24 hrs Laboratory Tests Test 03/13/17 01:24 03/13/17 02:38 03/13/17 03:30 03/13/17 04:20 Blood Gas Specimen Source Blood arterial Blood arterial Arterial Blood Date Drawn 03/13/2017 1:27:00 AM 03/13/2017 3:52:45 AM Arterial Blood pH (Temp corrected) 7.320 L 7.371 Arterial Blood pCO2 (Temp correct) 26.7 L 31.3 L Arterial Blood pO2 (Temp corrected) 93.3 H 96.8 H Arterial Blood HCO3 13.4 L 17.7 L Arterial Blood Base Excess -11.3 L -6.7 L Arterial Blood Oxygen Saturation 96.8 97.0 Shreyas Test ACCEPTAB ACCEPTAB Arterial Blood Gas Puncture Site Right Radial Right Radial Arterial Blood Carboxyhemoglobin 0.3 0.3 Arterial Blood Methemoglobin 0.3 0.3 Blood Gas A-a O2 Differential 233.2 H 224.5 H Oxyhemoglobin Percent 96.2 96.4 Total Hemoglobin 9.6 L 9.7 L Blood Gas Temperature 37.0 37.0 Blood Gas Respiration Rate 16.0 16.0 Blood Gas Actual Respiration Rate 19 20 Blood Gas Modality VENT - AC VENT - AC FiO2 50.0 50.0 Blood Gas Tidal Volume 450.0 450.0 Blood Gas Mean Airway Pressure 11 11 Blood Gas Low PEEP Setting 5.0 5.0 Blood Gas Inspiratory Pressure 24.0 33.0 Blood Gas Notified Whom Urszula [employer] Blood Gas Notified Time 03/13/2017 1:39:00 AM 03/13/2017 4:04:55 AM Bedside Glucose 85 White Blood Count 17.6 #H Red Blood Count 3.14 #L Hemoglobin 8.7 L Hematocrit 26.6 L Mean Corpuscular Volume 84.7 Mean Corpuscular Hemoglobin 27.7 #L Mean Corpuscular Hemoglobin Concent 32.7 # Red Cell Distribution Width 19.4 H Platelet Count 25 #*L Mean Platelet Volume Neutrophils % 80.4 H Lymphocytes % 13.5 L Monocytes % 3.4 Eosinophils % 1.2 Basophils % 0.4 Nucleated Red Blood Cells % 0.0 Neutrophils # 14.2 H Lymphocytes # 2.4 Monocytes # 0.6 Eosinophils # 0.2 Basophils # 0.1 Nucleated Red Blood Cells # 0.0 Prothrombin Time 24.9 H Prothrombin Time Ratio 1.9 INR International Normalized Ratio 2.22 Activated Partial Thromboplast Time 61.2 H Sodium Level 137 Potassium Level 3.4 L Chloride Level 105 Carbon Dioxide Level 20 L Anion Gap 15 Blood Urea Nitrogen 23 H Creatinine 0.95 Glucose Level 86 Calcium Level 9.2 Phosphorus Level 4.3 Magnesium Level 1.5 L Total Bilirubin 8.3 H Direct Bilirubin 6.60 H Indirect Bilirubin 1.7 H Aspartate Amino Transf (AST/SGOT) 59 H Alanine Aminotransferase (ALT/SGPT) 31 Alkaline Phosphatase 305 H Ammonia 30 Total Protein 5.0 #L Albumin 1.6 L Globulin 3.40 H Albumin/Globulin Ratio 0.47 Test 03/13/17 05:17 03/13/17 09:48 03/13/17 12:47 03/13/17 16:25 Bedside Glucose 124 135 134 106 Medications Medications Current Medications Ondansetron HCl (Zofran Inj) 4 mg Q6H PRN IV NAUSEA AND/OR VOMITING Last administered on 02/13/17 00:36; Admin Dose 4 MG; Start 02/11/17 at 10:00 Acetaminophen (Tylenol Tab) 650 mg Q6H PRN PO PAIN LEVEL 1-3 OR FEVER Last administered on 02/25/17 19:51; Admin Dose 650 MG; Start 02/11/17 at 10:00 Bisacodyl (Dulcolax Supp) 10 mg DAILY PRN [place] CONSTIPATION; Start 02/11/17 at 10 :00 Miscellaneous Information (Pending Santyl Order For Wound Care) This patient prado... PRN PRN XX WOUND CARE; Start 02/11/17 at 19:00 Collagenase (Santyl) 1 applic DAILY TOP Last administered on 03/13/17 09:08; Admin Dose 1 APPLIC; Start 02/12/17 at 13:30 Diphenhydramine HCl (Benadryl) 25 mg Q6H PRN IV ITCHING Last administered on 18:22; Admin Dose 25 MG; Start 02/12/17 at 14:00 Pantoprazole (Protonix Iv) 40 mg DAILY@06 IV Last administered on 03/13/17 05: 55; Admin Dose 40 MG; Start 02/23/17 at 06:00 Lorazepam 0.5 mg 0.5 mg Q8H PRN IV AGITATION/ANXIETY Last administered on 16:01; Admin Dose 0.5 MG; Start 02/23/17 at 13:30 Midazolam HCl 50 ml @ 1 mls/hr TITRATE IV Last administered on 03/09/17 11:30; Admin Dose 2 MLS/HR; Start 02/25/17 at 10:00 Fentanyl 100 ml @ 2.5 mls/hr TITRATE IV Last administered on 02/25/17 10:43; Admin Dose 2.5 MLS/HR; Start 02/25/17 at 10:00 Vancomycin HCl/ Dextrose/Water (Vancocin/D5W) 150 ml @ 75 mls/hr Q48H IVPB Last administered on 03/13/17 04:41; Admin Dose 75 MLS/HR; Start 03/03/17 at 01: 00 Glucose (Glutose) 15 gm Q15M PRN PO DECREASED GLUCOSE; Start 03/02/17 at 12:30 Glucose (Glutose) 22.5 gm Q15M PRN PO DECREASED GLUCOSE; Start 03/02/17 at 12: 30 Dextrose (D50w Syringe) 25 ml Q15M PRN IV DECREASED GLUCOSE Last administered on 03/02/17 12:18; Admin Dose 25 ML; Start 03/02/17 at 12:30 Dextrose (D50w Syringe) 50 ml Q15M PRN IV DECREASED GLUCOSE; Start 03/02/17 at 12:30 Glucagon (Glucagen) 1 mg Q15M PRN IM DECREASED GLUCOSE; Start 03/02/17 at 12:30 Glucose (Glutose) 15 gm Q15M PRN BUCCAL DECREASED GLUCOSE; Start 03/02/17 at 12 :30 Diagnostic Test (Pha) 1 ea 1 ea Q4 XX Last administered on 03/13/17 16:27; Admin Dose 1 EA; Start 03/04/17 at 09:00 Caspofungin/ Sodium Chloride (Cancidas/NS) 250 ml @ 250 mls/hr Q24H IVPB Last administered on 03/13/17 15:44; Admin Dose 250 MLS/HR; Start 03/04/17 at 15:00 Sodium Hypochlorite (Dakin'S (1/4 Strength)) 1 applic DAILY IRR Last administered on 03/13/17 09:07; Admin Dose 1 APPLIC; Start 03/07/17 at 09:00 Morphine Sulfate (morphine) 2 mg Q4H PRN IV PAIN LEVEL 7-10 Last administered on 03/12/17 16:01; Admin Dose 2 MG; Start 03/07/17 at 10:00 Furosemide 20 mg 20 mg DAILY IV Last administered on 03/11/17 10:21; Admin Dose 20 MG; Start 03/11/17 at 10:00 Colistimethate Sodium 75 mg/ Dextrose 100 ml @ 200 mls/hr Q12 IVPB Last administered on 03/13/17 09:53; Admin Dose 200 MLS/HR; Start 03/12/17 at 12:30 Norepinephrine 32 mg/Dextrose 500 ml @ 0.93 mls/hr TITRATE IV Last administered on 03/13/17 07:49; Admin Dose 28.12 MLS/HR; Start 03/12/17 at 23: 30 Vasopressin 60 unit/Dextrose 60 ml @ 1.2 mls/hr Q12H IV Last administered on 12:30; Admin Dose 2.4 MLS/HR; Start 03/12/17 at 23:30 Phenylephrine HCl 80 mg/Dextrose 500 ml @ 37.5 mls/hr TITRATE IV Last administered on 03/13/17 18:41; Admin Dose 112.5 MLS/HR; Start 03/12/17 at 23: 30 Epinephrine/ Dextrose (EPINEPHrine/D5W) 250 ml @ 3.75 mls/hr TITRATE IV Last administered on 03/13/17 16:47; Admin Dose 37.5 MLS/HR; Start 03/12/17 at 23:30 Lorazepam (Ativan) 2 mg Q1H PRN IV ANXIETY; Start 03/12/17 at 23:30 Morphine Sulfate 5 mg 5 mg Q1H PRN IV PAIN; Start 03/12/17 at 23:30 Linezolid (Zyvox 600mg/D5W (Pmx)) 300 ml @ 300 mls/hr Q12 IVPB ; Start at 09:00; Status UNV Acetaminophen (Tylenol Liquid) 650 mg Q6H PRN NGT PAIN AND OR ELEVATED TEMP; Start 03/12/17 at 23:30 Alprazolam (Xanax) 0.25 mg Q12H PRN NGT ANXIETY; Start 03/12/17 at 23:30 Docusate Sodium (Colace Liquid Cup) 100 mg BID PRN NGT CONSTIPATION; Start 05/19 at 23:30 Midodrine 5 mg 5 mg TID@09,,17 NGT Last administered on 03/13/17 16:26; Admin Dose 5 MG; Start 03/13/17 at 09:00 Sodium Bicarbonate/ Dextrose (Na Bicarb/D5W) 1,150 ml @ 100 mls/hr [id number] IV Last administered on 03/13/17 13:46; Admin Dose 100 MLS/HR; Start 03/13/17 at 12:08 DEBORA WILLOUGHBY NP Mar 13, 2017 20:10
[2017-03-14] VITALS (58 sets, daily range): BP systolic 33–78; BP diastolic 16–36; PULSE 0–135; RESP 16–31
[2017-03-14] MEDS: ACCU-CHEK XX SCH ×4 (00:05→13:00)
[2017-03-14] MEDS: SODIUM BICARBONATE (IV ADD) 150 MEQ in DEXTROSE 5% 1,000 ML IV SCH ×2 (00:06→11:08)
[2017-03-14] MEDS: IPRATROPIUM (HFA) 12.9 GM INHALER INH SCH ×2 (00:24→08:19)
[2017-03-14] MEDS: ALBUTEROL 18 GM INHALER INH SCH ×2 (00:25→08:19)
[2017-03-14] MEDS: PHENYLephrine 80 MG in DEXTROSE 5% 492 ML IV SCH ×2 (03:18→07:58)
[2017-03-14] MEDS: DEXTROSE 50% 50 ML SYRINGE IV PRN (04:26)
[2017-03-14] MEDS ORDERED: DEXTROSE 10% 1,000 ML IV SCH (04:36)
[2017-03-14] MEDS: EPINEPHrine 4 MG in DEXTROSE 5% 246 ML IV SCH ×2 (04:43→11:51)
[2017-03-14] MEDS: PANTOPRAZOLE 40 MG INJ IV SCH (05:59)
[2017-03-14] MEDS: SODIUM HYPOCHLORITE 0.125% 473 ML BTL IRR SCH (08:35)
[2017-03-14] MEDS: MIDODRINE 5 MG TAB NGT SCH (08:38)
[2017-03-14] MEDS: BALSAM PERU/CASTOR OIL 60 GM TUBE TOP SCH (08:38)
[2017-03-14] MEDS: COLLAGENASE 30 GM TUBE TOP SCH (08:38)
[2017-03-14] MEDS: FUROSEMIDE 20 MG INJ IV SCH (08:39)
[2017-03-14] MEDS: DEXTROSE 5% IVPB SCH (08:55)
[2017-03-14] MEDS: COLISTIMETHATE IVPB SCH (08:55)
--- NOTE | 2017-03-14 08:57 | PN ---
Date/Time of Note Date/Time of Note DATE: 03/14/17 TIME: 08:55 Assessment/Plan VTE Prophylaxis VTE Prophylaxis Intervention: SCD's Lines/Catheters IV Catheter Type (from Nrsg): Central Line Central line still needed: Yes (IV access) Urinary Cath still in place: Yes Reason Cath still needed: terminal illness/intractable pain Assessment/Plan Assessment/Plan 86 yo female with: 1. Acute Respiratory failure, in setting of 3rd spacing, atelectasis, severe anemia and Norbert glabrata fungemia, septic shock. Dismal overall clinical status this morning, and dismal prognosis, patient on 4 pressors, patient in ICU on mechanical ventilation due to deteriorated respiratory status. Unfortunately keeps declining, hypothermic, severely hypotensive despite 4 pressors, unresponsive. Currently on FiO2 down to 30%, and more hemodynamically unstable requiring 2 pressors now. Prognosis extremely poor as patient seems to have a known source of infection with sputum positive for MDRO Acinetobacter. CXR mostly unchanged with pulmonary vascular congestion, small to moderate pleural effusions even s/p thoracentesis 02/20 with -300 cc and another right thoracentesis 02/23 with removal of less than 100 cc, Continue current antibiotics and further antibiotic adjustment per ID, Patient now DNR, extremely poor clinical status and dismal prognosis, She should be comfort measures at this time. We will follow-up with the DPOA today if available otherwise if patient still alive by Thursday we will proceed with bioethics 2. Sepsis and Septic shock, from Norbert glabrata fungemia and septicemia . Patient on Cancidas. PICC line finally removed 03/05 with tip sent for culture, patient has a central line currently. Repeat blood cx NGTD. Hopefully in the next 2-3 days if blood cultures remain negative, will see if patient can have a PICC line replaced as likely she will need TPN resumed. Repeat blood cultures 02/28 with 1/2 blood cultures still positive with norbert glabrata, it is unclear if it is culture from the PICC line or peripheral. Repeat blood cultures again 03/02 growing Norbert Glabrata Repeat blood cx 03/06 and 03/08 NGTD. Sputum cultures most recent with Acinetobacter fitzgerald resistant, colistin was ordered per ID Also with concerns for possible cholangitis based on current clinical picture, this has been addressed with gastroenterology Continue current antibiotics per Infectious diseases. Patient is currently intubated, unresponsive, hypothermic, severely hypotensive on 4 pressors and a bicarb drip, ongoing septic shock and metabolic acidosis. Advising comfort measures. 3. S/p Severe pancreatitis with pseudocyst, on TPN and No tube feeding per GI. Now with also concerns for biliary stent obstruction. Dr Hill following, discussed earlier this week. CAT scan of the abdomen and pelvis has been compared to the one done at [facility] approximately 3 weeks ago, cholecystostomy tube has been removed however there is concern as the patient has a new fluid collection in addition of the previous pseudocyst also previous pseudocyst seems to have increased in size and there is concern for possible infection. We were planing for drainage of 2nd cyst since admission, but INR at 1.4 and patient clinically declined further now intubated and on 2 pressors with ongoing sepsis and hemodynamic instability. Now even higher INR of 2.2 while in DIC Per Surgery note couple of weeks ago, ? bleeding in pseudocyst but patient was not stable to get bleeding scan due to fact she was on BiPAP Continue current antibiotics. Will discontinue TPN today 4. Acute on chronic anemia status post blood product transfusion at least twice during this admission, in DIC with ongoing thrombocytopenia and anemia. Bleeding scan was not done due to respiratory distress and needs for continuous BiPAP, she is now intubated and improving, is still needed will discuss with GI. No signs of acute bleeding so far however patient does have positive fecal occult blood. Appreciate GI consult, patient and her son declined EGD prior. Appreciate recommendations of Dr Hannah, may still needs CT guided drainage of 2nd pseudocyst by IR, however patient now with hemodynamic instability and intubated, likely also coagulopathic from a septic state/DIC not a candidate for IR procedures 5. Septic shock with now findings of Acinetobacter MDRO in the sputum. Patient intubated, and septic with candidemia with Norbert glabrata, continue pressors for blood pressure support, unfortunately at this time declining further requiring more pressor support. Lactic acid climbing up Continue current multiple antibiotics per ID management. Prognosis dismal, advising comfort measures/end-of-life care, DPOA not agreeable as of now but did agree to a DO NOT RESUSCITATE status. Bioethics currently scheduled for Friday 03/16 at 1:30 PM if patient survives until then. 6. Acute kidney injury, in setting of septic shock with recent candidemia, now Acinetobacter MDRO in the sputum. Seems to be now anuric, labs pending but likely in acute renal failure and metabolic acidosis Significant anasarca still noted, patient third spacing. Continue D5NS with 3 amps of bicarb at 100cc/hr for now With ongoing hemodynamic instability and severe hypotension despite 4 pressors. 7. Sinus Tachycardia: Per report from [facility] patient has sinus tachycardia. Resolved as patient in less distress currently after intubation and sedation. 8. Venous thromboembolism with episode of DVT, status post IVC filter. Repeat Doppler negative for DVT 9. Coagulopathy: S/p Vitamin K and FFP as needed for INR 1.8 but to be noted patient with VTE, s/p IVC filter. Now in DIC. 10. Hyperbilirubinemia, primarily direct, also slight elevation of alkaline phosphatase, concerns for obstructive process/biliary stent Dr Hill will discuss stent change with Son but currently patient hemodynamically unstable. Liver ultrasound showing pancreatic pseudocyst, GI following and will repeat CAT scan of the abdomen and pelvis when patient hemodynamically stable and re- address with Surgery. For now have not been able to perform CAT scan due to hemodynamic instability and increasing pressor requirements overnight. Prophylaxis: Protonix for GI prophylaxis, SCDs and status post IVC filter for DVT prophylaxis Disposition: ICU now, intubated on mechanical ventilation , attempted repeat thoracentesis right pleural effusion with very minimal output. Now with fungemia Unfortunately patient has declined over the past 4 days and even further overnight with signs of active septic picture and septic shock, new source may be cholangitis based on the current clinical picture, gastroenterology to discuss with son possible need for ERCP and stent change, but also patient with Acinetobacter in sputum. The DPOA, Jesus Muller, apparently 2 nights ago at first decided to terminally extubate the patient and go for comfort care, however he left the hospital and a few hours later came back disheveled and decided to reverse his decision, keep the patient full code on multiple pressors. He had another discussion yesterday morning with Dr. Bhakta and did agree to a DO NOT RESUSCITATE status but would not move towards comfort measures yet. Currently no escalation of care but patient actively dying, prognosis dismal. She is unlikely to make it through the weekend unfortunately. Bioethics requested and so far scheduled for Friday 03/16 at 1:30 PM DNR. Subjective 24 Hr Interval Summary Free Text/Dictation Patient unresponsive at this time, blood pressures in the 50s/20s on 4 pressors including vasopressin and epinephrine drips, hypothermic requiring Dion hugger to maintain temperature around 97. Anasarca and jaundiced. No urine output according to nurses. We will obtain labs this morning for the purpose of documentation mainly, patient is DNR, no escalation of care and already on 4 pressors along with bicarb drip. At this point withdrawal of care and comfort measures would be the most appropriate course of action. Exam/Review of Systems Vital Signs Vitals Vital Signs Date Time Temp Pulse Resp B/P Pulse Ox O2 Delivery O2 Flow Rate FiO2 03/14/17 06:15 107 24 47/29 100 Mechanical Ventilator 03/14/17 05:05 100 03/14/17 04:00 96.8 Intake and Output 03/13/17 03/13/17 03/14/17 15:00 23:00 07:00 Intake Total 1769.34 ml 2563.62 ml 1931.14 ml Output Total 55 ml 10 ml 310 ml Balance 1714.34 ml 2553.62 ml 1621.14 ml Exam Constitutional: other (Unresponsive) Eyes: icteric Respiratory: diminished breath sounds (Bilaterally), other (On the ventilator) Cardiovascular: nl pulses, regular rate and rhythm Gastrointestinal: non-tender, soft Musculoskeletal: swelling (Diffuse anasarca) Extremities: edema (Diffuse anasarca) Results Result Diagram: 03/13/1741903/13/17 042 Results 24 hrs Laboratory Tests Test 03/13/17 09:48 03/13/17 12:47 03/13/17 16:25 03/13/17 20:09 Bedside Glucose 135 134 106 89 Test 03/14/17 00:01 03/14/17 04:23 03/14/17 04:56 03/14/17 08:48 Bedside Glucose 73 55 L 126 92 Medications Medications Current Medications Ondansetron HCl (Zofran Inj) 4 mg Q6H PRN IV NAUSEA AND/OR VOMITING Last administered on 02/13/17 00:36; Admin Dose 4 MG; Start 02/11/17 at 10:00 Acetaminophen (Tylenol Tab) 650 mg Q6H PRN PO PAIN LEVEL 1-3 OR FEVER Last administered on 02/25/17 19:51; Admin Dose 650 MG; Start 02/11/17 at 10:00 Bisacodyl (Dulcolax Supp) 10 mg DAILY PRN [place] CONSTIPATION; Start 02/11/17 at 10 :00 Miscellaneous Information (Pending Santyl Order For Wound Care) This patient prado... PRN PRN XX WOUND CARE; Start 02/11/17 at 19:00 Collagenase (Santyl) 1 applic DAILY TOP Last administered on 03/14/17 08:38; Admin Dose 1 APPLIC; Start 02/12/17 at 13:30 Diphenhydramine HCl (Benadryl) 25 mg Q6H PRN IV ITCHING Last administered on 18:22; Admin Dose 25 MG; Start 02/12/17 at 14:00 Pantoprazole (Protonix Iv) 40 mg DAILY@06 IV Last administered on 03/14/17 05: 59; Admin Dose 40 MG; Start 02/23/17 at 06:00 Lorazepam 0.5 mg 0.5 mg Q8H PRN IV AGITATION/ANXIETY Last administered on 16:01; Admin Dose 0.5 MG; Start 02/23/17 at 13:30 Midazolam HCl 50 ml @ 1 mls/hr TITRATE IV Last administered on 03/09/17 11:30; Admin Dose 2 MLS/HR; Start 02/25/17 at 10:00 Fentanyl 100 ml @ 2.5 mls/hr TITRATE IV Last administered on 02/25/17 10:43; Admin Dose 2.5 MLS/HR; Start 02/25/17 at 10:00 Vancomycin HCl/ Dextrose/Water (Vancocin/D5W) 150 ml @ 75 mls/hr Q48H IVPB Last administered on 03/13/17 04:41; Admin Dose 75 MLS/HR; Start 03/03/17 at 01: 00 Glucose (Glutose) 15 gm Q15M PRN PO DECREASED GLUCOSE; Start 03/02/17 at 12:30 Glucose (Glutose) 22.5 gm Q15M PRN PO DECREASED GLUCOSE; Start 03/02/17 at 12: 30 Dextrose (D50w Syringe) 25 ml Q15M PRN IV DECREASED GLUCOSE Last administered on 03/14/17 04:26; Admin Dose 25 ML; Start 03/02/17 at 12:30 Dextrose (D50w Syringe) 50 ml Q15M PRN IV DECREASED GLUCOSE; Start 03/02/17 at 12:30 Glucagon (Glucagen) 1 mg Q15M PRN IM DECREASED GLUCOSE; Start 03/02/17 at 12:30 Glucose (Glutose) 15 gm Q15M PRN BUCCAL DECREASED GLUCOSE; Start 03/02/17 at 12 :30 Diagnostic Test (Pha) 1 ea 1 ea Q4 XX Last administered on 03/13/17 16:27; Admin Dose 1 EA; Start 03/04/17 at 09:00 Caspofungin/ Sodium Chloride (Cancidas/NS) 250 ml @ 250 mls/hr Q24H IVPB Last administered on 03/13/17 15:44; Admin Dose 250 MLS/HR; Start 03/04/17 at 15:00 Sodium Hypochlorite (Dakin'S (1/4 Strength)) 1 applic DAILY IRR Last administered on 03/14/17 08:35; Admin Dose 1 APPLIC; Start 03/07/17 at 09:00 Morphine Sulfate (morphine) 2 mg Q4H PRN IV PAIN LEVEL 7-10 Last administered on 03/12/17 16:01; Admin Dose 2 MG; Start 03/07/17 at 10:00 Furosemide 20 mg 20 mg DAILY IV Last administered on 03/11/17 10:21; Admin Dose 20 MG; Start 03/11/17 at 10:00 Colistimethate Sodium 75 mg/ Dextrose 100 ml @ 200 mls/hr Q12 IVPB Last administered on 03/13/17 21:41; Admin Dose 200 MLS/HR; Start 03/12/17 at 12:30 Norepinephrine 32 mg/Dextrose 500 ml @ 0.93 mls/hr TITRATE IV Last administered on 03/13/17 22:34; Admin Dose 28.12 MLS/HR; Start 03/12/17 at 23: 30 Vasopressin 60 unit/Dextrose 60 ml @ 1.2 mls/hr Q12H IV Last administered on 12:30; Admin Dose 2.4 MLS/HR; Start 03/12/17 at 23:30 Phenylephrine HCl 80 mg/Dextrose 500 ml @ 37.5 mls/hr TITRATE IV Last administered on 8/12/17at 07:58; Admin Dose 112.5 MLS/HR; Start 03/12/17 at 23: 30 Epinephrine/ Dextrose (EPINEPHrine/D5W) 250 ml @ 3.75 mls/hr TITRATE IV Last administered on 03/14/17 04:43; Admin Dose 37.5 MLS/HR; Start 03/12/17 at 23:30 Lorazepam (Ativan) 2 mg Q1H PRN IV ANXIETY; Start 03/12/17 at 23:30 Morphine Sulfate (morphine) 5 mg Q1H PRN IV PAIN; Start 03/12/17 at 23:30 Acetaminophen (Tylenol Liquid) 650 mg Q6H PRN NGT PAIN AND OR ELEVATED TEMP; Start 03/12/17 at 23:30 Alprazolam (Xanax) 0.25 mg Q12H PRN NGT ANXIETY; Start 03/12/17 at 23:30 Docusate Sodium (Colace Liquid Cup) 100 mg BID PRN NGT CONSTIPATION; Start 05/19 at 23:30 Midodrine 5 mg 5 mg TID@,,17 NGT Last administered on 03/14/17 08:38; Admin Dose 5 MG; Start 03/13/17 at 09:00 Sodium Bicarbonate 150 meq/Dextrose 1,150 ml @ 100 mls/hr [id number] IV Last administered on 03/14/17 00:06; Admin Dose 100 MLS/HR; Start 03/13/17 at 12:08 Dextrose (D10w) 1,000 ml @ 40 mls/hr Q24H IV Last administered on 03/14/17 05 :59; Admin Dose 40 MLS/HR; Start 03/14/17 at 04:36 BONIFACIO COWART Mar 14, 2017 08:56
[2017-03-14 09:24] LABS: ABNORMAL IP MESSAGE 1; HEMATOCRIT 25.3 % (37.0-47.0); HEMOGLOBIN 8.4 g/dl (12.0-16.0); MEAN CORPUSCULAR HEMOGLOBIN 28.3 pg (29.0-33.0); MEAN CORPUSCULAR HGB CONC 33.2 g/dl (32.0-37.0); MEAN CORPUSCULAR VOLUME 85.2 fl (82.0-101.0); NUCLEATED RED BLOOD CELLS% 0.1 /100WBC (0.0-0.0); PLATELET COUNT 35 10^3/UL (140-415); RED BLOOD COUNT 2.97 10^6/ul (4.20-5.40); RED CELL DISTRIBUTION WIDTH 19.5 % (11.5-14.5); WHITE BLOOD COUNT 29.4 10^3/ul (4.8-10.8)
[2017-03-14 09:42] LABS: ALBUMIN 1.2 g/dl (3.3-4.9); ALBUMIN/GLOBULIN RATIO 0.4; BILIRUBIN,DIRECT 6.3 mg/dl (0.00-0.20); BILIRUBIN,INDIRECT 1.7 mg/dl (0-1.1); CALCIUM 8.8 mg/dl (8.4-10.2); CREATININE 1.15 mg/dl (0.44-1.00); POTASSIUM 4.1 mmol/L (3.5-5.1); TOTAL PROTEIN 4.2 g/dl (6.1-8.1)
[2017-03-14 09:49] LABS: INR 2.94; PROTIME 31.1 Sec (12.2-14.2); PT RATIO 2.4
[2017-03-14 09:57] LABS: POSITIVE DIFF @See below
[2017-03-14 10:13] LABS: PARTIAL THROMBOPLASTIN TIME 72.8 Sec (25.0-35.0)
--- NOTE | 2017-03-14 10:24 | PN ---
Date/Time of Note Date/Time of Note DATE: 03/14/17 TIME: 10:24 Assessment/Plan Lines/Catheters IV Catheter Type (from Nrsg): Central Line Elder in Place (from Nrsg): Yes Assessment/Plan Chief Complaint/Hosp Course Additional Assessment/Plan Respiratory failure Pancreatitis SP central line placement, site clean will continue supp care Problems: Subjective 24 Hr Interval Summary Constitutional: improved Pain Control: mild Exam/Review of Systems Vital Signs Vitals Vital Signs Date Time Temp Pulse Resp B/P Pulse Ox O2 Delivery O2 Flow Rate FiO2 03/14/17 09:56 90 03/14/17 09:26 108 24 100 03/14/17 06:15 47/29 Mechanical Ventilator 03/14/17 04:00 96.8 Intake and Output 03/13/17 03/13/17 03/14/17 15:00 23:00 07:00 Intake Total 1769.34 ml 2563.62 ml 1931.14 ml Output Total 55 ml 10 ml 310 ml Balance 1714.34 ml 2553.62 ml 1621.14 ml Exam ENMT: mucosa pink and moist, nl external ears & nose, nl lips & teeth, nl nasal mucosa & septum Neck: non-tender, supple Respiratory: clear to auscultation, normal air movement Cardiovascular: nl pulses, regular rate and rhythm Results Result Diagram: 03/14/1791403/14/17914 LUIZ SEQUEIRA MD Mar 14, 2017 10:24
[2017-03-14 10:52] LABS: ANISOCYTOSIS 2+ (0-0); BURR CELLS 2+ (0-0); EOSINOPHILS % (M) 1 % (0-7); GIANT THROMBO% (M) 4 % (0-0); MONOCYTES % (M) 1 % (0-11); PLATELET ESTIMATE SIG DECREASED; POIKILOCYTOSIS 2+ (0-0); POLYCHROMASIA 1+ (0-0); TARGET CELLS 1+ (0-0)
--- NOTE | 2017-03-14 11:23 | PN ---
Date/Time of Note Date/Time of Note DATE: 03/14/17 TIME: 11:21 Assessment/Plan VTE Prophylaxis VTE Prophylaxis Intervention: contraindicated VTE Contraindication Reason: bleeding Lines/Catheters IV Catheter Type (from Nrsg): Central Line Central line still needed: Yes Urinary Cath still in place: Yes Reason Cath still needed: urinary retention Assessment/Plan Assessment/Plan Septic shock * Acute respiratory failure management c/o pulmonary * Encephalopathy * Anemia/recurrent/probable GI bleeding * Refused EGD * Pancreatitis with Pancreatic pseudocyst/awaiting drainage * Coagulopathy * H/O tube cholecystostomy/biliary stent * Rule out stent occlusion Plan : * Continue present regimen * monitor hemoglobin and hematocrit daily and transfuse per protocol * further orders will depend on clinical course * case discussed with Dr Hill Subjective 24 Hr Interval Summary Free Text/Dictation * course reviewed with RN * Patient seen and examined * Still on pressors Exam/Review of Systems Vital Signs Vitals Vital Signs Date Time Temp Pulse Resp B/P Pulse Ox O2 Delivery O2 Flow Rate FiO2 03/14/17 09:56 90 03/14/17 09:26 108 24 100 03/14/17 06:15 47/29 Mechanical Ventilator 03/14/17 04:00 96.8 Intake and Output 03/13/17 03/13/17 03/14/17 15:00 23:00 07:00 Intake Total 1769.34 ml 2563.62 ml 1931.14 ml Output Total 55 ml 10 ml 310 ml Balance 1714.34 ml 2553.62 ml 1621.14 ml Exam Constitutional: frail ENMT: intubated Respiratory: crackles/rales, diminished breath sounds Cardiovascular: irregular rhythm Gastrointestinal: bowel sounds, distended, non-tender Musculoskeletal: swelling Extremities: pitting pedal edema Neurological: unresponsive Results Result Diagram: 03/14/1715 03/14/17 0915 Results 24 hrs Laboratory Tests Test 03/13/17 12:47 03/13/17 16:25 03/13/17 20:09 03/14/17 00:01 Bedside Glucose 134 106 89 73 Test 03/14/17 04:23 03/14/17 04:56 03/14/17 08:48 03/14/17 09:15 Bedside Glucose 55 L 126 92 White Blood Count 29.4 #H Red Blood Count 2.97 L Hemoglobin 8.4 L Hematocrit 25.3 L Mean Corpuscular Volume 85.2 Mean Corpuscular Hemoglobin 28.3 L Mean Corpuscular Hemoglobin Concent 33.2 Red Cell Distribution Width 19.5 H Platelet Count 35 #L Mean Platelet Volume Neutrophils % Segmented Neutrophils % (Manual) 74 Band Neutrophils % (Manual) 19 H Lymphocytes % Lymphocytes % (Manual) 5 L Monocytes % Monocytes % (Manual) 1 Eosinophils % Eosinophils % (Manual) 1 Basophils % Nucleated Red Blood Cells % 0.1 H Neutrophils # Neutrophils # (Manual) 23.4 H Band Neutrophils # 5.5 H Absolute Lymphocytes (Manual) 1.4 Lymphocytes # Monocytes # Absolute Monocytes (Manual) 0.2 L Eosinophils # Basophils # Nucleated Red Blood Cells # Thrombocytosis 4 H Platelet Estimate SIG DECREASED Platelet Morphology Comment @See below Polychromasia 1+ Poikilocytosis 2+ Anisocytosis 2+ Target Cells 1+ Prothrombin Time 31.1 #H Prothrombin Time Ratio 2.4 INR International Normalized Ratio 2.94 Activated Partial Thromboplast Time 72.8 *H Sodium Level 131 L Potassium Level 4.1 Chloride Level 99 Carbon Dioxide Level 17 L Anion Gap 19 H Blood Urea Nitrogen 23 H Creatinine 1.15 H Glucose Level 80 Lactic Acid Level 7.4 *H Calcium Level 8.8 Total Bilirubin 8.0 H Direct Bilirubin 6.30 H Indirect Bilirubin 1.7 H Aspartate Amino Transf (AST/SGOT) 228 H Alanine Aminotransferase (ALT/SGPT) 59 Alkaline Phosphatase 232 H Total Protein 4.2 L Albumin 1.2 L Globulin 3.00 Albumin/Globulin Ratio 0.40 Medications Medications Current Medications Ondansetron HCl (Zofran Inj) 4 mg Q6H PRN IV NAUSEA AND/OR VOMITING Last administered on 02/13/17 00:36; Admin Dose 4 MG; Start 02/11/17 at 10:00 Acetaminophen (Tylenol Tab) 650 mg Q6H PRN PO PAIN LEVEL 1-3 OR FEVER Last administered on 02/25/17 19:51; Admin Dose 650 MG; Start 02/11/17 at 10:00 Bisacodyl (Dulcolax Supp) 10 mg DAILY PRN RI CONSTIPATION; Start 02/11/17 at 10 :00 Miscellaneous Information (Pending Santyl Order For Wound Care) This patient prado... PRN PRN XX WOUND CARE; Start 02/11/17 at 19:00 Collagenase (Santyl) 1 applic DAILY TOP Last administered on 03/14/17 08:38; Admin Dose 1 APPLIC; Start 02/12/17 at 13:30 Diphenhydramine HCl (Benadryl) 25 mg Q6H PRN IV ITCHING Last administered on 18:22; Admin Dose 25 MG; Start 02/12/17 at 14:00 Pantoprazole (Protonix Iv) 40 mg DAILY@06 IV Last administered on 03/14/17 05: 59; Admin Dose 40 MG; Start 02/23/17 at 06:00 Lorazepam 0.5 mg 0.5 mg Q8H PRN IV AGITATION/ANXIETY Last administered on 16:01; Admin Dose 0.5 MG; Start 02/23/17 at 13:30 Midazolam HCl 50 ml @ 1 mls/hr TITRATE IV Last administered on 03/09/17 11:30; Admin Dose 2 MLS/HR; Start 02/25/17 at 10:00 Fentanyl (Sublimaze) 100 ml @ 2.5 mls/hr TITRATE IV Last administered on 10:43; Admin Dose 2.5 MLS/HR; Start 02/25/17 at 10:00 Glucose (Glutose) 15 gm Q15M PRN PO DECREASED GLUCOSE; Start 03/02/17 at 12:30 Glucose (Glutose) 22.5 gm Q15M PRN PO DECREASED GLUCOSE; Start 03/02/17 at 12: 30 Dextrose (D50w Syringe) 25 ml Q15M PRN IV DECREASED GLUCOSE Last administered on 03/14/17 04:26; Admin Dose 25 ML; Start 03/02/17 at 12:30 Dextrose (D50w Syringe) 50 ml Q15M PRN IV DECREASED GLUCOSE; Start 03/02/17 at 12:30 Glucagon (Glucagen) 1 mg Q15M PRN IM DECREASED GLUCOSE; Start 03/02/17 at 12:30 Glucose (Glutose) 15 gm Q15M PRN BUCCAL DECREASED GLUCOSE; Start 03/02/17 at 12 :30 Diagnostic Test (Pha) 1 ea 1 ea Q4 XX Last administered on 03/14/17 08:55; Admin Dose 1 EA; Start 03/04/17 at 09:00 Caspofungin/ Sodium Chloride (Cancidas/NS) 250 ml @ 250 mls/hr Q24H IVPB Last administered on 03/13/17 15:44; Admin Dose 250 MLS/HR; Start 03/04/17 at 15:00 Sodium Hypochlorite (Dakin'S (1/4 Strength)) 1 applic DAILY IRR Last administered on 03/14/17 08:35; Admin Dose 1 APPLIC; Start 03/07/17 at 09:00 Morphine Sulfate (morphine) 2 mg Q4H PRN IV PAIN LEVEL 7-10 Last administered on 03/12/17 16:01; Admin Dose 2 MG; Start 03/07/17 at 10:00 Furosemide 20 mg 20 mg DAILY IV Last administered on 03/11/17 10:21; Admin Dose 20 MG; Start 03/11/17 at 10:00 Colistimethate Sodium 75 mg/ Dextrose 100 ml @ 200 mls/hr Q12 IVPB Last administered on 03/14/17 08:55; Admin Dose 200 MLS/HR; Start 03/12/17 at 12:30 Norepinephrine 32 mg/Dextrose 500 ml @ 0.93 mls/hr TITRATE IV Last administered on 03/13/17 22:34; Admin Dose 28.12 MLS/HR; Start 03/12/17 at 23: 30 Vasopressin 60 unit/Dextrose 60 ml @ 1.2 mls/hr Q12H IV Last administered on 12:30; Admin Dose 2.4 MLS/HR; Start 03/12/17 at 23:30 Phenylephrine HCl 80 mg/Dextrose 500 ml @ 37.5 mls/hr TITRATE IV Last administered on 03/14/17 07:58; Admin Dose 112.5 MLS/HR; Start 03/12/17 at 23: 30 Epinephrine/ Dextrose (EPINEPHrine/D5W) 250 ml @ 3.75 mls/hr TITRATE IV Last administered on 03/14/17 04:43; Admin Dose 37.5 MLS/HR; Start 03/12/17 at 23:30 Lorazepam (Ativan) 2 mg Q1H PRN IV ANXIETY; Start 03/12/17 at 23:30 Morphine Sulfate (morphine) 5 mg Q1H PRN IV PAIN; Start 03/12/17 at 23:30 Acetaminophen (Tylenol Liquid) 650 mg Q6H PRN NGT PAIN AND OR ELEVATED TEMP; Start 03/12/17 at 23:30 Alprazolam (Xanax) 0.25 mg Q12H PRN NGT ANXIETY; Start 03/12/17 at 23:30 Docusate Sodium 100 mg 100 mg BID PRN NGT CONSTIPATION; Start 03/12/17 at 23:30 Sodium Bicarbonate 150 meq/Dextrose 1,150 ml @ 100 mls/hr [id number] IV Last administered on 03/14/17 00:06; Admin Dose 100 MLS/HR; Start 03/13/17 at 12:08 Dextrose 1,000 ml @ 40 mls/hr Q24H IV Last administered on 03/14/17 05:59; Admin Dose 40 MLS/HR; Start 03/14/17 at 04:36 Vancomycin HCl (Vancocin) 100 ml @ 100 mls/hr Q48H IVPB ; Start 03/15/17 at 05: 00 LUZMARIA SPAIN NP Mar 14, 2017 11:23
[2017-03-14 12:25] LABS: AADO2 Arterial 610.5 mmHg (7.0-24.0); Allen Test ACCEPTAB; Arterial Base Excess -14.7 mmol/L (-3.0-3); Arterial COHb 0.3 % (0.0-3.0); Arterial Fraction of Oxyhgb 92.1 % (93.0-99.0); Arterial HCO3 11.5 mmol/L (22.0-26.0); Arterial MetHb 0.3 % (0.0-1.5); Arterial Total Hemglobin 8.9 g/dl (12.0-18.0); MODE VENT - AC
--- NOTE | 2017-03-14 12:35 | CONS ---
Date/Time of Note Date/Time of Note DATE: 03/14/17 TIME: 12:34 Consult Date/Type/Reason Admit Date/Time Feb 11, 2017 at 05:28 Initial Consult Date 02/21/17 Type of Consultation: Pulmonary Ordering Provider: BONIFACIO COWART Subjective Patient remains unresponsive on mechanical ventilation. 4 vasopressors. Objective Vital Signs Date Time Temp Pulse Resp B/P Pulse Ox O2 Delivery O2 Flow Rate FiO2 03/14/17 12:00 98.2 104 28 42/35 100 Mechanical Ventilator 03/14/17 09:56 90 Intake and Output 03/13/17 03/13/17 03/14/17 15:00 23:00 07:00 Intake Total 1769.34 ml 2563.62 ml 1931.14 ml Output Total 55 ml 10 ml 310 ml Balance 1714.34 ml 2553.62 ml 1621.14 ml Exam PHYSICAL EXAMINATION GENERAL: Elderly lady orally intubated on mechanical ventilation VITAL SIGNS: see below. HEENT: Pupils equal, round, and reactive to light. CARDIAC: S1, S2, 1/6 systolic ejection murmur CHEST: Diminished air entry bilaterally. ABDOMEN: Mildly distended. Mild tenderness to palpation. Diminished bowel sounds. EXTREMITIES: No cyanosis, clubbing edema +1 NEUROLOGIC: Generalized weakness Results/Medications Result Diagram: 03/14/1715 03/14/17 0915 Results 24 hrs Laboratory Tests Test 03/13/17 12:47 03/13/17 16:25 03/13/17 20:09 03/14/17 00:01 Bedside Glucose 134 106 89 73 Test 03/14/17 04:23 03/14/17 04:56 03/14/17 08:48 03/14/17 09:15 Bedside Glucose 55 L 126 92 White Blood Count 29.4 #H Red Blood Count 2.97 L Hemoglobin 8.4 L Hematocrit 25.3 L Mean Corpuscular Volume 85.2 Mean Corpuscular Hemoglobin 28.3 L Mean Corpuscular Hemoglobin Concent 33.2 Red Cell Distribution Width 19.5 H Platelet Count 35 #L Mean Platelet Volume Neutrophils % Segmented Neutrophils % (Manual) 74 Band Neutrophils % (Manual) 19 H Lymphocytes % Lymphocytes % (Manual) 5 L Monocytes % Monocytes % (Manual) 1 Eosinophils % Eosinophils % (Manual) 1 Basophils % Nucleated Red Blood Cells % 0.1 H Neutrophils # Neutrophils # (Manual) 23.4 H Band Neutrophils # 5.5 H Absolute Lymphocytes (Manual) 1.4 Lymphocytes # Monocytes # Absolute Monocytes (Manual) 0.2 L Eosinophils # Basophils # Nucleated Red Blood Cells # Thrombocytosis 4 H Platelet Estimate SIG DECREASED Platelet Morphology Comment @See below Polychromasia 1+ Poikilocytosis 2+ Anisocytosis 2+ Target Cells 1+ Prothrombin Time 31.1 #H Prothrombin Time Ratio 2.4 INR International Normalized Ratio 2.94 Activated Partial Thromboplast Time 72.8 *H Sodium Level 131 L Potassium Level 4.1 Chloride Level 99 Carbon Dioxide Level 17 L Anion Gap 19 H Blood Urea Nitrogen 23 H Creatinine 1.15 H Glucose Level 80 Lactic Acid Level 7.4 *H Calcium Level 8.8 Total Bilirubin 8.0 H Direct Bilirubin 6.30 H Indirect Bilirubin 1.7 H Aspartate Amino Transf (AST/SGOT) 228 H Alanine Aminotransferase (ALT/SGPT) 59 Alkaline Phosphatase 232 H Total Protein 4.2 L Albumin 1.2 L Globulin 3.00 Albumin/Globulin Ratio 0.40 Test 03/14/17 11:30 Blood Gas Specimen Source Blood arterial Arterial Blood Date Drawn 03/14/2017 12:11:46 PM Arterial Blood pH (Temp corrected) 7.228 *L Arterial Blood pCO2 (Temp correct) 28.2 L Arterial Blood pO2 (Temp corrected) 74.3 L Arterial Blood HCO3 11.5 L Arterial Blood Base Excess -14.7 L Arterial Blood Oxygen Saturation 92.7 L Shreyas Test ACCEPTAB Arterial Blood Gas Puncture Site Left Radial Arterial Blood Carboxyhemoglobin 0.3 Arterial Blood Methemoglobin 0.3 Blood Gas A-a O2 Differential 610.5 H Oxyhemoglobin Percent 92.1 L Total Hemoglobin 8.9 L Blood Gas Temperature 37.0 Blood Gas Respiration Rate 16.0 Blood Gas Actual Respiration Rate 24 Blood Gas Modality VENT - AC FiO2 100.0 Blood Gas Tidal Volume 450.0 Blood Gas Low PEEP Setting 5.0 Blood Gas Critical Value Read Back ALLIE Cuba RN Blood Gas Notified Whom LS Blood Gas Notified Time 03/14/2017 12:25:23 PM Medications Current Medications Ondansetron HCl (Zofran Inj) 4 mg Q6H PRN IV NAUSEA AND/OR VOMITING Last administered on 02/13/17t 00:36; Admin Dose 4 MG; Start 02/11/17 at 10:00 Acetaminophen (Tylenol Tab) 650 mg Q6H PRN PO PAIN LEVEL 1-3 OR FEVER Last administered on 02/25/17 19:51; Admin Dose 650 MG; Start 02/11/17 at 10:00 Bisacodyl (Dulcolax Supp) 10 mg DAILY PRN DC CONSTIPATION; Start 02/11/17 at 10 :00 Miscellaneous Information (Pending Santyl Order For Wound Care) This patient prado... PRN PRN XX WOUND CARE; Start 02/11/17 at 19:00 Collagenase (Santyl) 1 applic DAILY TOP Last administered on 03/14/17 08:38; Admin Dose 1 APPLIC; Start 02/12/17 at 13:30 Diphenhydramine HCl (Benadryl) 25 mg Q6H PRN IV ITCHING Last administered on 18:22; Admin Dose 25 MG; Start 02/12/17 at 14:00 Pantoprazole (Protonix Iv) 40 mg DAILY@06 IV Last administered on 03/14/17 05: 59; Admin Dose 40 MG; Start 02/23/17 at 06:00 Lorazepam 0.5 mg 0.5 mg Q8H PRN IV AGITATION/ANXIETY Last administered on 16:01; Admin Dose 0.5 MG; Start 02/23/17 at 13:30 Midazolam HCl 50 ml @ 1 mls/hr TITRATE IV Last administered on 03/09/17 11:30; Admin Dose 2 MLS/HR; Start 02/25/17 at 10:00 Fentanyl (Sublimaze) 100 ml @ 2.5 mls/hr TITRATE IV Last administered on 10:43; Admin Dose 2.5 MLS/HR; Start 02/25/17 at 10:00 Glucose (Glutose) 15 gm Q15M PRN PO DECREASED GLUCOSE; Start 03/02/17 at 12:30 Glucose (Glutose) 22.5 gm Q15M PRN PO DECREASED GLUCOSE; Start 03/02/17 at 12: 30 Dextrose (D50w Syringe) 25 ml Q15M PRN IV DECREASED GLUCOSE Last administered on 03/14/17 04:26; Admin Dose 25 ML; Start 03/02/17 at 12:30 Dextrose (D50w Syringe) 50 ml Q15M PRN IV DECREASED GLUCOSE; Start 03/02/17 at 12:30 Glucagon (Glucagen) 1 mg Q15M PRN IM DECREASED GLUCOSE; Start 03/02/17 at 12:30 Glucose (Glutose) 15 gm Q15M PRN BUCCAL DECREASED GLUCOSE; Start 03/02/17 at 12 :30 Diagnostic Test (Pha) 1 ea 1 ea Q4 XX Last administered on 03/14/17 08:55; Admin Dose 1 EA; Start 03/04/17 at 09:00 Caspofungin/ Sodium Chloride (Cancidas/NS) 250 ml @ 250 mls/hr Q24H IVPB Last administered on 03/13/17 15:44; Admin Dose 250 MLS/HR; Start 03/04/17 at 15:00 Sodium Hypochlorite (Dakin'S (1/4 Strength)) 1 applic DAILY IRR Last administered on 03/14/17 08:35; Admin Dose 1 APPLIC; Start 03/07/17 at 09:00 Morphine Sulfate (morphine) 2 mg Q4H PRN IV PAIN LEVEL 7-10 Last administered on 03/12/17 16:01; Admin Dose 2 MG; Start 03/07/17 at 10:00 Furosemide 20 mg 20 mg DAILY IV Last administered on 03/11/17 10:21; Admin Dose 20 MG; Start 03/11/17 at 10:00 Colistimethate Sodium 75 mg/ Dextrose 100 ml @ 200 mls/hr Q12 IVPB Last administered on 03/14/17 08:55; Admin Dose 200 MLS/HR; Start 03/12/17 at 12:30 Norepinephrine 32 mg/Dextrose 500 ml @ 0.93 mls/hr TITRATE IV Last administered on 03/13/17 22:34; Admin Dose 28.12 MLS/HR; Start 03/12/17 at 23: 30 Vasopressin 60 unit/Dextrose 60 ml @ 1.2 mls/hr Q12H IV Last administered on 12:30; Admin Dose 2.4 MLS/HR; Start 03/12/17 at 23:30 Phenylephrine HCl 80 mg/Dextrose 500 ml @ 37.5 mls/hr TITRATE IV Last administered on 03/14/17 07:58; Admin Dose 112.5 MLS/HR; Start 03/12/17 at 23: 30 Epinephrine/ Dextrose (EPINEPHrine/D5W) 250 ml @ 3.75 mls/hr TITRATE IV Last administered on 03/14/17 11:51; Admin Dose 37.5 MLS/HR; Start 03/12/17 at 23:30 Lorazepam (Ativan) 2 mg Q1H PRN IV ANXIETY; Start 03/12/17 at 23:30 Morphine Sulfate (morphine) 5 mg Q1H PRN IV PAIN; Start 03/12/17 at 23:30 Acetaminophen (Tylenol Liquid) 650 mg Q6H PRN NGT PAIN AND OR ELEVATED TEMP; Start 03/12/17 at 23:30 Alprazolam (Xanax) 0.25 mg Q12H PRN NGT ANXIETY; Start 03/12/17 at 23:30 Docusate Sodium 100 mg 100 mg BID PRN NGT CONSTIPATION; Start 03/12/17 at 23:30 Sodium Bicarbonate 150 meq/Dextrose 1,150 ml @ 100 mls/hr [id number] IV Last administered on 03/14/17 00:06; Admin Dose 100 MLS/HR; Start 03/13/17 at 12:08 Dextrose 1,000 ml @ 40 mls/hr Q24H IV Last administered on 03/14/17 05:59; Admin Dose 40 MLS/HR; Start 03/14/17 at 04:36 Vancomycin HCl (Vancocin) 100 ml @ 100 mls/hr Q48H IVPB ; Start 03/15/17 at 05: 00 Assessment/Plan Chief Complaint/Hosp Course Additional Assessment/Plan IMP: 1. Vent Dependent Resp Failure 2. Fungemia, polymicrobial with refractory septic shock 3. Pancreatitis possible obstructive jaundice. 4. AMS/Encephalopathy 5. Anemia 6. Possible acute abdomen, currently not stable for CT scan given multiple pressors. Patient would not likely be surgical candidate continue current supportive care. 7. Thrombocytopenia possibly DIC RECS: 1. Vent support. 2. Continue broad-spectrum antibiotics 3. Surgery recommendations. 4. Anti-fungals per ID 5. Palliative care recommendations. 6. Continue multiple vasopressors Prognosis very poor. Discussed with nursing staff and primary team. Family aware of critical condition. 35 min cc time Problems: SLAVA MCBRIDE MD, [facility] Mar 14, 2017 12:35
[2017-03-15] MEDS ORDERED: VANCOMYCIN 500MG/NS (PMX) 100 ML IVPB SCH (05:00)
--- NOTE | 2017-03-15 07:57 | PN ---
DATE: 03/14/2017 SUBJECTIVE DATA: The patient is on multiple pressors, intubated, obtunded, hypothermic, on Dion Hugger. OBJECTIVE DATA: VITAL SIGNS: Temperature 96.8, pulse 108, respirations 24, blood pressure 47/29, saturations 90 percent on vent support. LABORATORY AND DIAGNOSTIC DATA: WBC 29.4, H and H 8.4 and 25.3, platelet count 35. BUN 23, creatinine 1.15, sodium 131. 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 Blood culture on 03/02/2017 grew norbert nara. Urine culture on admission grew VRE. Repeat blood culture on 03/09/2017 and urine culture negative. Indwelling endotracheal tube or gastric tube, Elder, left chest triple lumen catheter, antimicrobial with vancomycin, Colistin . PHYSICAL EXAMINATION: GENERAL: This is a fragile, chronically ill appearing elderly woman who is obtunded, in no distress. HEENT: Head atraumatic, normocephalic. NECK: Supple. CHEST: Chest rise symmetrical. Breath sounds with bilateral scattered crackles. HEART: S1 and S2, tachycardic, irregular. ABDOMEN: Distended, hypoactive bowel sounds. EXTREMITIES: With bilateral edema. SKIN: With severe anasarca and seeping of fluids secondary to above multiple ecchymotic areas. ASSESSMENT: 1. Severe sepsis with shock and multisystem organ failure. 2. Fungemia. 3. Urinary tract infection. 4. Acute hypoxemia respiratory failure with health care associated pneumonia and sputum culture growing Acinetobacter baumannii. 5. Severe pancreatitis with pseudocyst, on total parenteral nutrition (TPN). 6. History of deep venous thrombosis (DVT), status post inferior vena cava (IVC) filter placement. 7. Anemia with severe thrombocytopenia. PLAN: The patient remains hemodynamically unstable and overall doing poorly. She is a DNR status. She is on appropriate antimicrobials which we are going to continue. Dictated By: Femi Sylvester NP /billy/flaquita /Document#: [id number]
== END 2017-03-14 20:50 | disposition expired | DRG 207 ==
LOC: E/R 03:59 → TEL 05:28 → ICU 02-21 12:33
PROVIDERS: ADMIT Internal Medicine; ATTEND Internal Medicine
PROC: 30233N1 Transfusion of Nonautologous Red Blood Cells into Peripheral Vein, Percutaneous Approach (ICD-10-PCS; 2017-02-11)
PROC: 30233R1 Transfusion of Nonautologous Platelets into Peripheral Vein, Percutaneous Approach (ICD-10-PCS; 2017-02-12)
PROC: 30233K1 Transfusion of Nonautologous Frozen Plasma into Peripheral Vein, Percutaneous Approach (ICD-10-PCS; 2017-02-18)
PROC: 0W993ZX Drainage of Right Pleural Cavity, Percutaneous Approach, Diagnostic (ICD-10-PCS; 2017-02-20)
PROC: 5A1955Z Respiratory Ventilation, Greater than 96 Consecutive Hours (ICD-10-PCS; principal; 2017-02-24)
PROC: 0W993ZZ Drainage of Right Pleural Cavity, Percutaneous Approach (ICD-10-PCS; 2017-02-24)
PROC: 0BH17EZ Insertion of Endotracheal Airway into Trachea, Via Natural or Artificial Opening (ICD-10-PCS; 2017-02-24)
PROC: 02PY33Z Removal of Infusion Device from Great Vessel, Percutaneous Approach (ICD-10-PCS; 2017-03-05)
PROC: 02HV33Z Insertion of Infusion Device into Superior Vena Cava, Percutaneous Approach (ICD-10-PCS; 2017-03-05)
DX: J69.0 Pneumonitis due to inhalation of food and vomit (principal); R65.21 Severe sepsis with septic shock; D65 Disseminated intravascular coagulation [defibrination syndrome]; J96.01 Acute respiratory failure with hypoxia; G93.40 Encephalopathy, unspecified; N17.9 Acute kidney failure, unspecified; K83.0 Cholangitis; D68.9 Coagulation defect, unspecified; B37.7 Candidal sepsis; K85.90 Acute pancreatitis without necrosis or infection, unspecified; B49 Unspecified mycosis; K86.3 Pseudocyst of pancreas; E87.0 Hyperosmolality and hypernatremia; N39.0 Urinary tract infection, site not specified; J98.11 Atelectasis; R71.0 Precipitous drop in hematocrit; R17 Unspecified jaundice; T80.211A Bloodstream infection due to central venous catheter, initial encounter; I95.9 Hypotension, unspecified; D69.6 Thrombocytopenia, unspecified; D64.9 Anemia, unspecified; J15.8 Pneumonia due to other specified bacteria; Z86.718 Personal history of other venous thrombosis and embolism; K44.9 Diaphragmatic hernia without obstruction or gangrene; K52.9 Noninfective gastroenteritis and colitis, unspecified; R33.9 Retention of urine, unspecified; I48.91 Unspecified atrial fibrillation; Z66 Do not resuscitate; B95.2 Enterococcus as the cause of diseases classified elsewhere; Z16.21 Resistance to vancomycin; R19.5 Other fecal abnormalities; J44.9 Chronic obstructive pulmonary disease, unspecified; B96.89 Other specified bacterial agents as the cause of diseases classified elsewhere; Z22.322 Carrier or suspected carrier of Methicillin resistant Staphylococcus aureus; Z16.24 Resistance to multiple antibiotics
CPT/HCPCS: 32555; 36415; 36430; 36600; 71010; 71250; 74176; 76705; 80048; 80053; 80061; 80202; 81001; 82140; 82270; 82550; 82553; 82803; 82945; 82962; 83605; 83615; 83735; 83880; 84100; 84157; 84439; 84443; 84484; 85014; 85018; 85025; 85045; 85049; 85335; 85362; 85378; 85384; 85610; 85613; 85670; 85730; 86644; 86850; 86900; 86901; 86920; 87040; 87045; 87070; 87075; 87081; 87086; 87102; 87116; 88104; 88305; 89051; 89220; 92526; 92610; 93005; 93306; 93970; 94003; 94640; 94644; 94660; 94664; 94760; 94770; 96374; 96375; 97162; J1940; C1751; C9113; J0171; J1200; J1956; J2060; J2185; J2270; J2370; J2405; J3010; J3370; J3475; J3480; J7030; J7040; J7042; J7050; J7060; J7070; P9016; P9035; P9045; P9047; P9059